=== PATIENT | female | born 1950 | race Caucasian/White ===

== ENCOUNTER → 2017-01-04 | Outpatient (CLI) | payer BC ==
[~2017-01-04] MED LIST: GLIP10TA23; HYDR50TA3; LEVO200T39; LISI10TA; METF-380; PGLT30T; SERT50TA; SIMV40TA2
--- NOTE | 2017-01-04 19:04 | Diagnostic Imaging Report ---
Bilateral screening mammogram The current study was also evaluated with a Computer Aided Detection (CAD) system. Indication: Screening. No current complaints stated on the questionnaire. COMPARISON: 10/12/15 FINDINGS: The breasts are composed of scattered fibroglandular densities. There are occasional benign-appearing calcifications. Allowing for technique and positional differences, no suspicious change is seen. IMPRESSION: No significant change. ACR BI-RADS Category 2: Benign findings. Result letter will be mailed to the patient. Note: At least 10% of breast cancer is not imaged by mammography. Dictated by: Dictated on workstation # [id number]
== END ==
LOC: RAD 10:55
PROVIDERS: ATTEND Obstetrics & Gynecology
DX: Z12.31 Encounter for screening mammogram for malignant neoplasm of breast (principal)
CPT/HCPCS: 77067

== ENCOUNTER → 2018-02-19 | Outpatient (CLI) | payer BC ==
--- NOTE | 2018-02-19 13:19 | Diagnostic Imaging Report ---
INDICATION: Routine screening. COMPARISON: 01/04/2017 and 10/12/2015. TECHNIQUE: Screening digital mammography was performed bilaterally with a Computer Aided Detection (CAD) system. FINDINGS: Both breasts are primarily involutional. Bilateral breast densities are stable. There are benign calcifications bilaterally. No new mass or malignant appearing microcalcifications are seen. The axillae are unremarkable. IMPRESSION: No mammographic features suspicious for malignancy are identified. ACR BI-RADS Category 2: Benign findings. Result letter will be mailed to the patient. Note: At least 10% of breast cancer is not imaged by mammography. Dictated by: Dictated on workstation # [id number]
== END ==
LOC: RAD 10:04
PROVIDERS: ATTEND Obstetrics & Gynecology
DX: Z12.31 Encounter for screening mammogram for malignant neoplasm of breast (principal)
CPT/HCPCS: 77067

== ENCOUNTER 2018-04-03 09:55 | Inpatient (IN) | payer BC, MEDICARE ==
[~2018-04-03] VITALS: Ht 152.4 cm; Wt 93.3 kg
[~2018-04-03 09:55] MED LIST changes: +ACET-2650 PO; +ASPI325T32 PO; +GLIM2TAB PO; +HYDR50TA3 PO; +INSU100I29 SC; +LEVO125T6 PO; +LISI10TA2 PO; +METF10002 PO; +PARO40TA3 PO; +SIMV40TA4 PO; +SITA100T12 PO
[2018-04-03 13:00] VITALS: BP 118/64
--- OUTSIDE RECORDS SUMMARY | 2018-04-03 14:00 | XMS REPORT | Continuity of Care Document ---
Author Author [employer] Organization [facility] Address Unknown Phone Unavailable Care Team Providers [facility] Business Manager Name Role Phone [employer] Unavailable Unavailable Problems Medications Allergies, Adverse Reactions, Alerts Immunizations Results Vital Signs Encounters Location Location Details Encounter Type Encounter Number Reason For Visit Attending Provider ADM Date DC Date Status Source INPATIENT [id number] ANURADHA CAM 03/18/20182017 Active [facility] O ANURADHA CAM 05/31/2018 Active [facility] Procedures Plan of Care Social History Assessment and Plan Family History Advance Directives Functional Status
--- OUTSIDE RECORDS SUMMARY | 2018-04-03 14:01 | XMS REPORT | Clinical Summary ---
Author Author [facility] Organization [facility] Address Unknown Phone Unavailable Care Team Providers Care Print Shop Stenographer Name Role Phone Brad Cummings MD PCP Source Comments Some departments are not documenting in the electronic medical record. If you do not see the information that you expected, contact Release of Information in the Health Information Management department at [phone] for further assistance in locating additional records.[facility] Allergies Active Allergy Reactions Severity Noted Date Comments Latex SEE COMMENTS Low 03/19/2018 skin irritation Penicillins SEE COMMENTS Low 03/19/2018 The patient said that when she was less than 12 years old, she was given a penicillin shot which caused her to be sleepy. She did not have difficulty breathing, swelling of the tongue or neck or rash. Her physician made a return house call. She does not remember if she received any treatment. She was not hospitalized for this. Entered by Rob GARRETT on 03/23/18 Current Medications Prescription Sig. Disp. Refills Start End Date Status Date acetaminophen SR(+) Take 650 mg by mouth Active (TYLENOL 8 HOUR) 650 mg every 6 hours as needed tablet for Pain. glimepiride (AMARYL) 2 mg Take 2 mg by mouth twice Active tablet daily. insulin detemir(+) Inject 16 Units under the Active (LEVEMIR) 100 unit/mL skin twice daily before soln meals. levothyroxine (SYNTHROID) Take 125 mcg by mouth Active 125 mcg tablet daily 30 minutes before breakfast. lisinopril (PRINIVIL; Take 10 mg by mouth Active ZESTRIL) 10 mg tablet daily. metFORMIN (GLUCOPHAGE) Take 1,000 mg by mouth Active 1,000 mg tablet twice daily with meals. PARoxetine (PAXIL) 40 mg Take 40 mg by mouth Active tablet daily. sitaGLIPtin (JANUVIA) 100 Take 100 mg by mouth Active mg tab tablet daily. digoxin 62.5 mcg tab Take 1 tablet by mouth 90 tablet 3 04/03/20 Active daily. 18 apixaban (ELIQUIS) 5 mg Take 1 tablet by mouth 60 tablet 2 04/03/20 Active tablet twice daily. 18 bumetanide (BUMEX) 2 mg Take 1 tablet by mouth 60 tablet 1 04/03/20 Active tablet daily. 18 aspirin 81 mg chewable Chew 1 tablet by mouth 90 tablet 3 04/03/20 Active tablet daily. Take with food. 18 spironolactone Take 1 tablet by mouth 90 tablet 3 04/03/20 Active (ALDACTONE) 25 mg tablet daily. Take with food. 18 amiodarone (CORDARONE) Take 1 tablet by mouth 90 tablet 3 04/03/20 Active 200 mg tablet daily. Take with food. 18 potassium chloride SR Take 1 tablet by mouth 90 tablet 3 04/03/20 Active (K-DUR) 20 mEq tablet daily. Take with a meal 18 and a full glass of water. simvastatin (ZOCOR) 20 mg Take 1 tablet by mouth at 90 tablet 3 Active tablet bedtime daily. 18 hydroCHLOROthiazide Take 50 mg by mouth every 04/03/20 Suspended (HYDRODIURIL) 50 mg morning. 18 tablet simvastatin (ZOCOR) 40 mg Take 40 mg by mouth at 04/03/20 Suspended tablet bedtime daily. 18 Active Problems Problem Noted Date HLD (hyperlipidemia) 03/19/2018 Type II diabetes mellitus (HCC) 03/19/2018 Essential hypertension 03/19/2018 Hypothyroidism 03/19/2018 Morbid obesity with BMI of 45.0-49.9, adult (FORMERLY [facility]) 03/19/2018 Nonischemic cardiomyopathy (FORMER[facility]) 03/19/2018 Overview: 03/18/18: Cath at [facility] [place] - normal coronaries Resolved Problems Problem Noted Date Resolved Date Cardiorenal syndrome 03/25/2018 04/03/2018 Infection due to parainfluenza virus 3 03/20/2018 04/03/2018 RYAN (acute kidney injury) (FORM[facility]) 03/19/2018 04/03/2018 PAF (paroxysmal atrial fibrillation) ([facility]) 03/19/2018 04/03/2018 Junctional bradycardia 03/19/2018 04/03/2018 Acute systolic heart failure (HCC) 03/19/2018 04/03/2018 Pulmonary edema 03/19/2018 04/03/2018 Acute respiratory failure with hypoxia (HCC) 03/19/2018 04/03/2018 Shock liver 03/19/2018 04/03/2018 Hyponatremia 03/19/2018 04/03/2018 Cardiogenic shock (HCC) 03/18/2018 04/03/2018 Encounters Date Type Specialty Care Team Description 03/27/2018 Procedure Pass Cardiology 03/27/2018 Surgery Cardiology Jovanny Fry MD INSERTION IMPLANTABLE DEFIBRILLATOR SYSTEM AND LEAD - DUAL 03/26/2018 Anesthesia Cardiology Zhao Ivory MD Event 03/26/2018 Anesthesia Cardiology Prateek Prakash CRNA Event 03/25/2018 Procedure Pass 03/25/2018 Procedure Pass 03/19/2018 Procedure Pass Cardiology 03/19/2018 Surgery Cardiology Ila Gray MD CATHETERIZATION RIGHT HEART 03/18/2018 [facility] Alem Tierney MD Cardiogenic shock (HCC) - Encounter Philippe Aguero MD 04/03/2018 Zafar Medina MD 03/18/2018 Hospital Radiology Encounter from Last 3 Months Social History Tobacco Use Types Packs/Day Years Used Date Former Smoker Cigarettes 1 40 Comments: Quit 8 years ago Alcohol Use Drinks/Week oz/Week Comments Yes Occassionally Sex Assigned at Date Recorded Not on file Last Filed Vital Signs Vital Sign Reading Time Taken Blood Pressure 146/64 04/03/2018 7:36 AM CDT Pulse 60 04/03/2018 7:36 AM CDT Temperature 36.7 C (98.1 F) 04/03/2018 7:36 AM CDT Respiratory Rate - - Oxygen Saturation 92% 04/03/2018 7:36 AM CDT Inhaled Oxygen - - Concentration Weight 93 kg (205 lb) 04/02/2018 12:59 PM CDT Height 167.6 cm (5' 6") 04/02/2018 12:59 PM CDT Body Mass Index 33.09 04/02/2018 12:59 PM CDT Plan of Treatment Health Maintenance Due Date Last Done Comments HEPATITIS C SCREENING 1952 PHYSICAL (COMPREHENSIVE) 02/11/1959 EXAM PERTUSSIS VACCINE 02/11/1963 TETANUS VACCINE 02/11/1969 DILATED EYE EXAM 02/11/1970 FOOT EXAM 02/11/1970 BREAST CANCER SCREENING 1992 COLORECTAL CANCER 02/11/2002 SCREENING SHINGLES VACCINE 2012 OSTEOPOROSIS SCREENING 02/11/2017 PREVNAR/PNEUMOVAX (#1) 02/11/2017 INFLUENZA VACCINE 08/26/2018 HBA1C 09/18/2018 03/19/2018 Procedures Procedure Name Priority Date/Time Associated Diagnosis Comments CONSULT IV THERAPY TEAM Routine 03/31/2018 9:09 AM CDT CONSULT IV THERAPY TEAM STAT 03/26/2018 11:11 AM CDT ECG-SCAN 03/24/2018 Results for this 4:40 PM CDT procedure are in the results section. ECG-SCAN 03/22/2018 Results for this 10:25 AM CDT procedure are in the results section. ECG-SCAN 03/22/2018 Results for this 10:25 AM CDT procedure are in the results section. CONSULT IV THERAPY TEAM Routine 03/19/2018 2:11 AM CDT from Last 3 Months Results * POC GLUCOSE (04/03/2018 7:34 AM) Only the most recent of 145 results within the time period is included. Component Value Ref Range Glucose, POC 129 (H) 70 - 100 MG/DL Specimen Performing Laboratory MA[facility] [address] [place] [address] * CBC (04/03/2018 4:05 AM) Only the most recent of 16 results within the time period is included. Component Value Ref Range White Blood Cells 4.8 4.5 - 11.0 K/UL RBC 3.98 (L) 4.0 - 5.0 M/UL Hemoglobin 11.0 (L) 12.0 - 15.0 GM/DL Hematocrit 33.8 (L) 36 - 45 % MCV 84.9 80 - 100 FL MCH 27.7 26 - 34 PG MCHC 32.6 32.0 - 36.0 G/DL RDW 16.5 (H) 11 - 15 % Platelet Count 130 (L) 150 - 400 K/UL MPV 8.8 7 - 11 FL Specimen Performing Laboratory Blood MAIN [facility] [address] [place] [address] * MAGNESIUM (04/03/2018 4:05 AM) Only the most recent of 33 results within the time period is included. Component Value Ref Range Magnesium 2.1 1.6 - 2.6 mg/dL Specimen Performing Laboratory Blood MAIN [facility] [address] [place] [address] * BASIC METABOLIC PANEL (04/03/2018 4:05 AM) Only the most recent of 14 results within the time period is included. Component Value Ref Range Sodium 136 (L) 137 - 147 MMOL/L Potassium 4.2 3.5 - 5.1 MMOL/L Chloride 102 98 - 110 MMOL/L CO2 28 21 - 30 MMOL/L Anion Gap 6 3 - 12 Glucose 88 70 - 100 MG/DL Blood Urea Nitrogen 34 (H) 7 - 25 MG/DL Creatinine 0.99 0.4 - 1.00 MG/DL Calcium 9.4 8.5 - 10.6 MG/DL eGFR Non 56 (L) >60 mL/min Comment: The eGFR is not validated for use in drug dosing adjustments.Continue to use estimated creatinine clearance per dosing reference text.Please contact the Clinical Pharmacist for questions. eGFR >60 >60 mL/min Comment: The eGFR is not validated for use in drug dosing adjustments.Continue to use estimated creatinine clearance per dosing reference text.Please contact the Clinical Pharmacist for questions. Specimen Performing Laboratory Blood MAIN [facility] [address] [place] [address] * 2-D + DOPPLER ECHOCARDIOGRAM (04/02/2018 12:58 PM) Only the most recent of 3 results within the time period is included. Component Value Ref Range IVS 0.78 0.6 - 0.9 cm LVIDD 5.72 3.8 - 5.2 cm LVIDS 5.15 2.2 - 3.5 cm PW 0.84 0.6 - 0.9 cm TDI e' 0.05 m/s LVOT peak william 0.85 m/s Right Ventricular Mid 3.01 1.9 - 3.5 cm Diameter LA size 3.99 2.7 - 3.8 cm LA volume 66.86 22 - 52 mL Right Atrial Area 17.51 <18 cm2 Right Atrial Major 5.93 2.2 - 2.8 cm Dimension and a peak gradient of 7.56 mmHg AV peak velocity 1.37 m/s MV Peak A William 0.35 m/s MV Peak E William PW 1.23 m/s Right Ventricular Basal 4.20 2.5 - 4.1 cm Diameter Right Heart Systolic 2.37 >1.7 cm Mmode TAPSE Sinus 2.97 2.7 - 3.3 cm BSA 2.08 m2 FS 9.97 28 - 44 % EF 16.95 % Left Atrium Index 32.14 16 - 34 AV index (kake) 0.62 E/A ratio 3.51 E/E' ratio 24.60 CV ECHO PV CHIEF DEPUTY [facility] mass 173.90 66 - 150 g RWT 0.29 <=0.42 TV rest pulmonary artery 42 mmHg pressure Right Heart Systolic TDI 0.140 m/s S' Cardiology Ultrasound Siemens [id number] Machine Left Ventricle Mass Index 83.61 44 - 88 g/m2 ECHO EF 25 % Specimen Performing Laboratory OTHER OUTSIDE LAB Narrative Severe, diffuse LV hypokinesis, EF 25% Mildly dilated, spherical LV Moderate LV diastolic dysfunction Mild left atrial enlargement Device leads in right-sided chambers Mild pulmonary hypertension Compared to 03/21/18 the appearance is similar * PV GROIN DUPLEX SCAN RT ONLY (04/01/2018 9:44 AM) Component Value Ref Range RIGHT RESIDENTIAL REMODELING SUBCONTRACTOR PROX SYS MAX 1.80 m/s RIGHT GROIN RESIDENTIAL REMODELING SUBCONTRACTOR SYS 1.80 m/s RIGHT GROIN SFA SYS 0.90 m/s RIGHT GROIN PFA SYS 0.55 m/s Cardiology Ultrasound [place] Epiq Machine Specimen Performing Laboratory OTHER OUTSIDE LAB Narrative No evidence of pseudoaneurysm, AV fistula, or hematoma is present in the right groin. * DIGOXIN LEVEL (04/01/2018 3:57 AM) Component Value Ref Range Digoxin 1.3 (H) 0.5 - 1.0 NG/ML Specimen Performing Laboratory Blood MAIN [facility] [address] [place] [address] * DEVICE EVALUATION - ICD (03/28/2018 4:10 PM) Component Value Ref Range Generator Graduate Nurse [facility] [facility] Device Type DDD-ICD Wireless Generator Yes Generator MRI Conditional Yes Atrial Lead Graduate Nurse [facility] [facility] Atrial Lead Model # TENDRIL MRI [id number] 52cm Atrial Lead Serial # [id number] Atrial Lead Implant Date 03/27/2018 Atrial Lead Fixation active fixation Atrial Lead Polarity Bipolar Atrial Lead Pin Connector IS1 Atrial Lead MRI Yes Conditional RV Lead Graduate Nurse [facility] [facility] RV Lead Model # OPTISURE [id number] RV Lead Serial # [id number] RV Lead Implant Date 03/27/2018 RV Lead Fixation active fixation RV Lead Coil Single RV Lead JESUSITA Conditional Yes Generator Model # NADINE GALLEGOS DR [id number] Generator Serial # [id number] Generator Implnat Date 03/27/2018 Remote Monitor Serial# [id number] Accssory Serial Number [id number] Device Smock Igor On Demand Transmitter Compatible Device Mode DDD Mode Switch Status On Lower Rate Limit 60 Mode Switch (bpm) 150 Upper Rate Limit 130 Pace AV Delay 200 Sense AV Delay 170 VT Monitor 171 High A Rate Detect 150 FVT Detect Rate Tx ATP/SHOCK VF Detect Rate Tx ATP/SHOCK VT Detect Rate (bpm) NA FVT Detect Rate (bpm) 190 VF Detect Rate (bpm) 250 High V Rate Detect 171 Atrial Lead Diaph. 10 Stimulation RV Lead Diaph. 10 Stimulation Device Function WNL Yes Device Reprogram No Next Programming Check 4-12weeks post implant Due Device Implanted By [facility] Pacemaker Dependant No Programming? Yes Date of Last Programming 03/28/18 Interrogation? Yes Date of Last 03/28/18 Interrogation Device Check by Rep Yes HF Patient Yes Remote Monitoring? Yes Date of Last Remote Check TBA Known Diagnosed AFib Yes Specimen Performing Laboratory OTHER OUTSIDE LAB Narrative In-patient "next-day" check (rep) [03/28/2018 4:12:27 PM - MICHELLE LAYNE] Device checked by Renae Correia [facility] Device rep: - pre-discharge check [place] remote inserviced. Please see attached HRM data sheet for > detail as needed.No changes made by rep. Routed to Dr Fry for co-sign. * CHEST 2 VIEWS (03/28/2018 5:29 AM) Specimen Performing Laboratory [facility] RESULTS Impressions Interval placement of dual-chamber pacemaker defibrillator with no evidence of postprocedural pneumothorax. Finalized by Javan Sue M.D. on 03/28/2018 8:55 AM. Dictated by Javan Sue M.D. on 03/28/2018 8:54 AM. Narrative CHEST 2 VIEWS History: Post device Implantation. Cardiac arrhythmia Technique: PA and lateral views of the chest were obtained. Comparison: Comparison is made to an examination of 03/15/2018. Findings: The heart size is now normal. There is no evidence of acute vascular congestion or pulmonary edema. There has been interval placement of a dual-chamber pacemaker defibrillator with its control unit in the left chest wall. Locations of the tips of the right atrial and right ventricular leads appear appropriate. No acute interstitial or alveolar opacities are. No masses are seen. There is no pleural fluid. No pneumothorax is identified. Note is again made of the left shoulder arthroplasty. Procedure Note Interface, Radiant Results - 03/28/2018 8:58 AM CDT CHEST 2 VIEWS History: Post device Implantation. Cardiac arrhythmia Technique: PA and lateral views of the chest were obtained. Comparison: Comparison is made to an examination of 03/15/2018. Findings: The heart size is now normal. There is no evidence of acute vascular congestion or pulmonary edema. There has been interval placement of a dual-chamber pacemaker defibrillator with its control unit in the left chest wall. Locations of the tips of the right atrial and right ventricular leads appear appropriate. No acute interstitial or alveolar opacities are. No masses are seen. There is no pleural fluid. No pneumothorax is identified. Note is again made of the left shoulder arthroplasty. IMPRESSION Interval placement of dual-chamber pacemaker defibrillator with no evidence of postprocedural pneumothorax. Finalized by Javan Sue M.D. on 03/28/2018 8:55 AM. Dictated by Javan Sue M.D. on 03/28/2018 8:54 AM. * EP DEVICE (03/27/2018 1:15 PM) Component Value Ref Range Generator Graduate Nurse [facility] [facility] Device Type DDD-ICD Wireless Generator Yes Generator Location Left Generator MRI Conditional Yes Atrial Lead Graduate Nurse [facility] [facility] Atrial Lead Model # TENDRIL MRI [id number] 52cm Atrial Lead Serial # [id number] Atrial Lead Implant Date 03/27/2018 Atrial Lead Fixation active fixation Atrial Lead Polarity Bipolar Atrial Lead Pin Connector IS1 Atrial Lead MRI Yes Conditional RV Lead Graduate Nurse [facility] RV Lead Model # OPTISURE [id number] RV Lead Serial # [id number] RV Lead Implant Date 03/27/2018 RV Lead Fixation active fixation RV Lead Pin Connector PPM DF4 RV Lead Coil Single RV Lead JESUSITA Conditional Yes Generator Model # NADINE GALLEGOS DR [id number] Generator Serial # [id number] Generator Implnat Date 03/27/2018 Remote Monitor Serial# [id number] Accssory Serial Number [id number] Device Smock [place] On Demand Transmitter Compatible Device Mode DDD Mode Switch Status On Lower Rate Limit 60 Mode Switch (bpm) 150 Upper Rate Limit 130 Pace AV Delay 200 Sense AV Delay 170 VT Monitor 171 High A Rate Detect 150 FVT Detect Rate Tx ATP/SHOCK VF Detect Rate Tx ATP/SHOCK A Sense mv 2.5 A Capture V 1.0 A Capture ms 0.8 A Lead ohms 440 RV Sense mv 9.8 RV Capture V 0.5 RV Capture ms 0.5 RV Lead ohms 550 VT Detect Rate (bpm) NA FVT Detect Rate (bpm) 190 VF Detect Rate (bpm) 250 Ao Voltage 2.5 AO Pulse Width 0.8 RV Voltage 2.5 RV Pulse Width 0.5 High V Rate Detect 171 Atrial Lead Diaph. 10 Stimulation RV Lead Diaph. 10 Stimulation Atrial Lead Current 2.2 mA RV Lead Current 1.0 mA Rate Response Off Specimen Performing Laboratory OTHER OUTSIDE LAB Narrative ELECTROPHYSIOLOGY PROCEDURE PROCEDURE: Dual-chamber Defibrillator Implantation OPERATION PERFORMED: -Left Axillary venous access (ultrasound-guided) -Dual-chamber Defibrillator Implantation -Defibrillation Threshold Testing not performed ATTENDING SURGEON: Jovanny Fry MD COMPLICATIONS: None. TIME OUT: Time out was completed with verification of the correct patient identity, procedure to be performed, procedure site and implanted equipment. INDICATION: Atrial fibrillation and sinus node dysfunction. She needed a pacemaker at this time and was unable to wait for 3 months of guide-line directed, optimal medical therapy. She was offered a primary prevention ICD as well for her non-ischemic cardiomyopathy and elected to proceed. PROCEDURE AND FINDINGS:Informed consent was given prior to the procedure and confirmed.Intravenous prophylactic antibiotics were administered prior to the procedure. After the site of implantation was prepped and drapped in the usual sterile fashion and after adequate anesthesia was given, the skin was infiltrated with local anesthetic. [id number] ACCESS Ultrasound was utilized to confirm axillary venous patency. Needle access was obtained under ultrasound guidance and a permanent recording obtained. The axillary vein was accessed via modified Seldinger technique under ultrasound guidance with a micropuncture needle. Two separate accesses were obtained with this technique.J tip 0.035 inch guide wire/wires were introduced and their course throught the venous system was confirmed by their presence under fluoroscopy in the inferior vena cava. POCKET FORMATION A micropuncture sheath was placed over the wire to protect the wire during electrocautery.The skin was incised on the left chest with a #10 scalpel incorporating a wire/wires. Blunt and electrosurgical dissection was carried out to the level of the prepectoral fascia with careful attention paid to hemostasis.A pocket to house the pulse generator was formed between the prepectoral fascia and subcutaneous fat with blunt and electrosurgical dissection. The remaining wire/wires were pulled into the pocket so they were through the incision. RIGHT VENTRICULAR LEAD A peel away sheath was brought to the field and placed into the venous system via over the wire technique.The right ventricular lead was placed via this sheath into the right ventricular low septal location.The lead had to be repositioned 2 times due to suboptimal sensing at the apical septum and instability at the 2nd position. Adequate sensing and threshold parameters were obtained at the final location.The lead was attached via active fixation.There was no evidence of diaphragmatic stimulation at 10 V output.The peel away sheath was removed and the lead collar was advanced to the pectoral muscle and sutured with 2-0 Ethibond suture.Tug testing of this lead confirmed stability of the lead and the length of the lead's slack was assesed as optimal with fluoroscopy. ATRIAL LEAD A peel away sheath was brought to the field and placed into the venous system via over the wire technique.The right atrial lead was placed via this sheath into the right atrial appendage location. The lead had to be repositioned 4 times due to dislodgement (a slightly more lateral position was obtained and kept at the end). Multiple attempts were made in the RAA. Adequate sensing and threshold parameters were obtained at the final location. The lead was attached via active fixation.There was no evidence of diaphragmatic stimulation at 10 V output.The peel away sheath was removed and the lead collar was advanced to the pectoral muscle and sutured with 2-0 Ethibondsuture.Tug testing of this lead confirmed stability of the lead and the length of the lead's slack was assesed as optimal with fluoroscopy. The lead/leads was/were cleaned and dried thoroughly then attached to the appropriate ports on the pulse generator.Tug testing was perfomed on all connections.The pocket was copiously irrigated with normal saline containing antibiotics and subsequently observed.Once adequate hemostasis was confirmed within the pocket, the device and leads were placed withinthe pocket such that the coiled redundant leads were posterior to the pulse generator.Once again, the device was tested for adequate sensing, impedances and pacing thresholds.The generator was secured to the pectoralis minor muscle with 2-0 Ethibond. The pocket was closed with interrupted 2-0 Vicryl and continuous 3-0 Vicryl. Dermabond glue was then applied over the incision followed by a sterile dressing. she tolerated the procedure well. This was a particularly challenging procedure due to the added complexity of multiple RA and RV lead dislodgements. This added approximately 30 minutes to the procedure. SEDATION: After providing fentanyl and midazolam, we achieved moderate conscious sedation, which was maintained throughout the procedure. The hemodynamic parameters, respiratory parameters, as well as neurological status was monitored throughout the procedure by the lab manager staff and myself. The sedation duration was 1 hour and 15 minutes. CONTRAST: 0 mL FLUOROSCOPY TIME: 2.5 minutes CONCLUSION: Successful Dual-chamber Defibrillator Implantation RECOMMENDATIONS: - Pain control as needed - Device interrogation, ECG, and Chest X-Ray in the morning - No post-procedure antibiotics - No heparin or LMWH products for 72 hours post-procedure - Continue oral anticoagulation given recent cardioversion - Incision Check in one week * PROTIME INR (PT) (03/27/2018 5:15 AM) Only the most recent of 2 results within the time period is included. Component Value Ref Range INR 1.3 (H) 0.8 - 1.2 Specimen Performing Laboratory Blood [facility] [address] [place] [address] * COMPREHENSIVE METABOLIC PANEL (03/27/2018 5:15 AM) Only the most recent of 21 results within the time period is included. Component Value Ref Range Sodium 137 137 - 147 MMOL/L Potassium 3.7 3.5 - 5.1 MMOL/L Chloride 91 (L) 98 - 110 MMOL/L Glucose 120 (H) 70 - 100 MG/DL Blood Urea Nitrogen 45 (H) 7 - 25 MG/DL Creatinine 1.11 (H) 0.4 - 1.00 MG/DL Calcium 10.0 8.5 - 10.6 MG/DL Total Protein 6.4 6.0 - 8.0 G/DL Total Bilirubin 0.8 0.3 - 1.2 MG/DL Albumin 3.6 3.5 - 5.0 G/DL Alk Phosphatase 55 25 - 110 U/L AST (SGOT) 24 7 - 40 U/L CO2 37 (H) 21 - 30 MMOL/L ALT (SGPT) 41 7 - 56 U/L Anion Gap 9 3 - 12 eGFR Non 49 (L) >60 mL/min Comment: The eGFR is not validated for use in drug dosing adjustments.Continue to use estimated creatinine clearance per dosing reference text.Please contact the Clinical Pharmacist for questions. eGFR 60 (L) >60 mL/min Comment: The eGFR is not validated for use in drug dosing adjustments.Continue to use estimated creatinine clearance per dosing reference text.Please contact the Clinical Pharmacist for questions. Specimen Performing Laboratory Blood [facility] [address] [place] [address] * TRANSESOPHAGEAL ECHOCARDIOGRAM (03/26/2018 2:58 PM) Component Value Ref Range BSA 2.14 m2 CV ECHO PV CHIEF DEPUTY TREVOR [employer] Ultrasound Siemens [id number] Machine ECHO EF 10 % Specimen Performing Laboratory OTHER OUTSIDE LAB Narrative No left atrial appendage thrombus Mildly dilated LV Severe LV systolic dysfunction, EF 10% Mildly dilated RV, moderate systolic dysfunction Severely enlarged left atrium Moderate dilated right atrium * CARDIOVERSION, EXTERNAL (03/26/2018 2:55 PM) Specimen Performing Laboratory OTHER OUTSIDE LAB Narrative The patient was converted from atrial fibrillation to sinus rhythm using 200 joules synchronized, biphasic energy.The initial rhythm post-shock was a junctional rhythm, rate 40's, for about 30 seconds, then sinus beats and frequent PVC's, then sustained sinus rhythm.The patient tolerated the procedure and there were no apparent complications. * NM PET HEART METABOLISM SARCOID (03/26/2018 8:39 AM) Specimen Performing Laboratory [facility] RAD RESULTS Impressions 1.Mild homogeneous increased FDG uptake within the left ventricular myocardium, greatest at the inferior wall. Findings are compatible with acute mild myocarditis. 2.Mild cardiomegaly. Approved by Zach Vanessa D.O. on 03/26/2018 11:29 AM By my electronic signature, I attest that I have personally reviewed the images for this examination and formulated the interpretations and opinions expressed in this report Finalized by Dell Foote M.D. on 03/26/2018 12:15 PM. Dictated by Zach Vanessa D.O. on 03/26/2018 10:00 AM. Narrative PET HEART METABOLISM WITH FDG CLINICAL HISTORY: 68 rolled female. Myocarditis. Congestive heart failure with new onset nonischemic cardiomyopathy. New-onset atrial fibrillation. Severe symptomatic bradycardia. RADIOPHARMACEUTICAL: 13.7 mCi IV Fluorine-18 fluorodeoxyglucose (FDG) TECHNIQUE: Following a high-carbohydrate meal, F-18 FDG was administered to the patient. Tomographic imaging of the heart was then obtained via attenuation correction PET scanning, and reviewed as tomographic images and polar maps. Comparison was made with perfusion imaging. COMPARISON: CT 03/25/2018 FINDINGS: Current blood pool mean SUV 3.7, maximum 4.23. CTAC images: Redemonstration of patchy consolidation in the dependent lower lungs, left greater than right, likely atelectasis. Redemonstration of small left and trace right pleural effusions. Scattered areas of scarring again noted. Mild cardiomegaly. There is mild homogeneous increased FDG uptake within the left ventricular myocardium, greatest at the inferior wall, which demonstrates a maximum SUV of 5.23. The apical anterior wall demonstrates maximum SUV of 4.75. No hypermetabolic lymphadenopathy demonstrated. Procedure Note Interface, Radiant Results - 03/26/2018 12:18 PM CDT PET HEART METABOLISM WITH FDG CLINICAL HISTORY: 68 rolled female. Myocarditis. Congestive heart failure with new onset nonischemic cardiomyopathy. New-onset atrial fibrillation. Severe symptomatic bradycardia. RADIOPHARMACEUTICAL: 13.7 mCi IV Fluorine-18 fluorodeoxyglucose (FDG) TECHNIQUE: Following a high-carbohydrate meal, F-18 FDG was administered to the patient. Tomographic imaging of the heart was then obtained via attenuation correction PET scanning, and reviewed as tomographic images and polar maps. Comparison was made with perfusion imaging. COMPARISON: CT 03/25/2018 FINDINGS: Current blood pool mean SUV 3.7, maximum 4.23. CTAC images: Redemonstration of patchy consolidation in the dependent lower lungs, left greater than right, likely atelectasis. Redemonstration of small left and trace right pleural effusions. Scattered areas of scarring again noted. Mild cardiomegaly. There is mild homogeneous increased FDG uptake within the left ventricular myocardium, greatest at the inferior wall, which demonstrates a maximum SUV of 5.23. The apical anterior wall demonstrates maximum SUV of 4.75. No hypermetabolic lymphadenopathy demonstrated. IMPRESSION 1. Mild homogeneous increased FDG uptake within the left ventricular myocardium, greatest at the inferior wall. Findings are compatible with acute mild myocarditis. 2. Mild cardiomegaly. Approved by Zach Vanessa D.O. on 03/26/2018 11:29 AM By my electronic signature, I attest that I have personally reviewed the images for this examination and formulated the interpretations and opinions expressed in this report Finalized by Dell Foote M.D. on 03/26/2018 12:15 PM. Dictated by Zach Vanessa D.O. on 03/26/2018 10:00 AM. * CT CHEST WO CONTRAST (03/25/2018 3:46 PM) Specimen Performing Laboratory [facility] RESULTS Impressions 1. Left IJ line malpositioning as described. Repositioning is suggested. This was discussed with the charge nurse on the patient's floor Mable by telephone at 4:11 PM on 03/25/2018. 2. No evidence of significant pericardial effusion, pericardial thickening, or mass effect on the right heart chambers to suggest constrictive pericarditis. 3. Upper limits of normal size heart with findings of mild CHF. 4. Patchy lower lung consolidation, left greater than right, likely representing atelectasis. 5. Small left and trace right pleural effusion. 6. Trace ascites. 7. At least moderate coronary artery and aortic valve calcification. Finalized by Yoshi Villeda M.D. on 03/25/2018 4:11 PM. Dictated by Yoshi Villeda M.D. on 03/25/2018 4:[address] Chest Clinical Indication: Constrictive pericarditis Technique: Multiple contiguous axial CT images were obtained through the chest without IV contrast.Post processing coronal and sagittal reconstruction images were made from the axial images. Comparison: None Findings: Axilla, Mediastinum and Judith: There is no axillary lymphadenopathy. There are a few mildly prominent mediastinal and hilar lymph nodes which are likely reactive. In comparison to chest x-ray of 2 days prior, the left IJ line has repositioned with the tip now terminating within a small branch vein just the left of the thoracic aorta. Heart and Great Vessels: The heart size is upper limits of normal. The right heart chambers are normal in contour without evidence of constriction. There is no pericardial effusion or pericardial thickening. There is at least moderate coronary artery and aortic valve calcification. Lungs and Pleura: Patchy consolidation is seen in the dependent lower lungs, left greater than right, likely representing atelectasis. There is a trace right and small left pleural effusion. There is mild pulmonary venous congestion and interstitial edema in both lungs. Scattered areas of scarring are noted bilaterally. Chest Wall and Osseous Structures: Left shoulder arthroplasty changes are partially visualized. No destructive osseous lesions are identified. Visualized Upper Abdomen: Trace ascites is noted. Clips are seen in the gallbladder fossa. Procedure Note Interface, Radiant Results - 03/25/2018 4:[address] Chest Clinical Indication: Constrictive pericarditis Technique: Multiple contiguous axial CT images were obtained through the chest without IV contrast. Post processing coronal and sagittal reconstruction images were made from the axial images. Comparison: None Findings: Axilla, Mediastinum and Judith: There is no axillary lymphadenopathy. There are a few mildly prominent mediastinal and hilar lymph nodes which are likely reactive. In comparison to chest x-ray of 2 days prior, the left IJ line has repositioned with the tip now terminating within a small branch vein just the left of the thoracic aorta. Heart and Great Vessels: The heart size is upper limits of normal. The right heart chambers are normal in contour without evidence of constriction. There is no pericardial effusion or pericardial thickening. There is at least moderate coronary artery and aortic valve calcification. Lungs and Pleura: Patchy consolidation is seen in the dependent lower lungs, left greater than right, likely representing atelectasis. There is a trace right and small left pleural effusion. There is mild pulmonary venous congestion and interstitial edema in both lungs. Scattered areas of scarring are noted bilaterally. Chest Wall and Osseous Structures: Left shoulder arthroplasty changes are partially visualized. No destructive osseous lesions are identified. Visualized Upper Abdomen: Trace ascites is noted. Clips are seen in the gallbladder fossa. IMPRESSION 1. Left IJ line malpositioning as described. Repositioning is suggested. This was discussed with the charge nurse on the patient's floorMable by telephone at 4:11 PM on 03/25/2018. 2. No evidence of significant pericardial effusion, pericardial thickening, or mass effect on the right heart chambers to suggest constrictive pericarditis. 3. Upper limits of normal size heart with findings of mild CHF. 4. Patchy lower lung consolidation, left greater than right, likely representing atelectasis. 5. Small left and trace right pleural effusion. 6. Trace ascites. 7. At least moderate coronary artery and aortic valve calcification. Finalized by Yoshi Villeda M.D. on 03/25/2018 4:11 PM. Dictated by Yoshi Villeda M.D. on 03/25/2018 4:01 PM. * ECG-SCAN (03/24/2018 4:40 PM) Narrative Ordered by an unspecified provider. * HEPARIN INDUCED PLT AB (HIT) (03/23/2018 11:20 AM) Component Value Ref Range Heparin Induced Plt AB NEGATIVEComment: TEST PERFORMED BY [facility]- NEGATIVE [facility] Heparin AB OD 0.030 0.000 - 0.499 Specimen Performing Laboratory [facility] [address] [place] [address] * PTT (APTT) (03/23/2018 5:05 AM) Only the most recent of 11 results within the time period is included. Component Value Ref Range APTT 101.5 (H) 21.0 - 39.0 SEC Specimen Performing Laboratory [facility] [address] [place] [address] * CHEST SINGLE VIEW (03/23/2018 4:57 AM) Only the most recent of 6 results within the time period is included. Specimen Performing Laboratory [facility] RESULTS Impressions 1.Since prior the right IJ SGC and ET tube have been removed. 2.Improved inspiration, improved bibasilar atelectasis and pulmonary venous congestion, with persistent mild cardiomegaly. No focal consolidation. Improvement trace left pleural effusion. 3.Otherwise no change. Left IJ CVC tip projects over the the innominate/ brachiocephalic vein confluence. Marked arthrosis of the right shoulder with likely rotator cuff tear. Left shoulder arthroplasty. Finalized by Mac Tolentino M.D. on 03/23/2018 7:59 AM. Dictated by Mac Tolentino M.D. on 03/23/2018 7:56 AM. Narrative Exam: CHEST SINGLE VIEW CLINICAL INDICATION: 68 years Female; Cough. COMPARISON: Portable chest 03/22/2018. Procedure Note Interface, Radiant Results - 03/23/2018 8:02 AM CDT Exam: CHEST SINGLE VIEW CLINICAL INDICATION: 68 years Female; Cough. COMPARISON: Portable chest 03/22/2018. IMPRESSION 1. Since prior the right IJ SGC and ET tube have been removed. 2. Improved inspiration, improved bibasilar atelectasis and pulmonary venous congestion, with persistent mild cardiomegaly. No focal consolidation. Improvement trace left pleural effusion. 3. Otherwise no change. Left IJ CVC tip projects over the the innominate/ brachiocephalic vein confluence. Marked arthrosis of the right shoulder with likely rotator cuff tear. Left shoulder arthroplasty. Finalized by Mac Tolentino M.D. on 03/23/2018 7:59 AM. Dictated by Mac Tolentino M.D. on 03/23/2018 7:56 AM. * VANCOMYCIN TROUGH (03/22/2018 9:20 PM) Component Value Ref Range Vancomycin Trough 20.1 (H) 10.0 - 20.0 MCG/ML Specimen Performing Laboratory Blood, venous - [facility] [address] [place] [address] * POC ACTIVATED CLOTTING TIME (03/22/2018 1:59 PM) Only the most recent of 2 results within the time period is included. Component Value Ref Range Activated Clotting Time 213 s Specimen Performing Laboratory [facility] [address] [place] [address] * ECG-SCAN (03/22/2018 10:25 AM) Narrative Ordered by an unspecified provider. * ECG-SCAN (03/22/2018 10:25 AM) Narrative Ordered by an unspecified provider. * BLOOD GASES, ARTERIAL (03/22/2018 9:40 AM) Only the most recent of 11 results within the time period is included. Component Value Ref Range pH-Arterial 7.34 (L) 7.35 - 7.45 pCO2-Arterial 53 (H) 35 - 45 MMHG pO2-Arterial 104 (H) 80 - 100 MMHG Base Excess-Arterial 1.8 MMOL/L O2 Sat-Arterial 97.5 95 - 99 % Xhjyiduuhgy-CAI-Nnz 26.0 21 - 28 MMOL/L Specimen Performing Laboratory Blood, arterial - [facility] [address] [place] [address] * O2 SATURATION, MIXED VENOUS (03/22/2018 5:00 AM) Only the most recent of 8 results within the time period is included. Component Value Ref Range S1Pby-Ipznq Venous 79.2 % Specimen Performing Laboratory [facility] [address] [place] [address] * US ABDOMEN COMPLETE (03/21/2018 7:00 PM) Specimen Performing Laboratory [facility] RESULTS Impressions 1.Mild hepatomegaly. There are no usman morphologic features of cirrhosis. 2.Mild abdominal ascites. 3.Small bilateral pleural effusions. 4.The left kidney was not visualized on this exam, which may be due to technical limitations, surgical absence, or congenital anomaly. The right kidney is normal in size without hydronephrosis. By my electronic signature, I attest that I have personally reviewed the images for this examination and formulated the interpretations and opinions expressed in this report Finalized by Caren Tracey M.D. on 03/22/2018 8:54 AM. Dictated by Rachael Polk D.O. on 03/22/2018 8:14 AM. Narrative Complete abdominal ultrasound Clinical Indication: 68-year-old female. Cardiogenic shock. Acute decompensated heart failure. Concern for STEEN/cirrhosis.Please also evaluate for potential urinary tract obstruction, urolithiasis, or hydronephrosis. Technique: Multiple real-time grayscale sonographic images were obtained of the abdomen. Additional color Doppler images were obtained. Comparison: None Findings: The study is significantly compromised by body habitus and bowel gas, particularly with regard to the left abdomen. Small bilateral pleural effusions are noted. The visualized pancreas, upper IVC and abdominal aorta are unremarkable. The liver demonstrates a homogenous echotexture and is mildly enlarged measuring 20.3 cm. No discrete hepatic lesion is identified. There is no obvious contour nodularity. The gallbladder is surgically absent. The extra hepatic bile duct is within normal limits in diameter measuring 0.6 cm near the jocelynn hepatis. No intrahepatic bile duct dilatation. A normal sized splenic candidate measures approximately 11.2 cm in length. The left kidney is not identified at its expected location in the left flank. An ectopic left kidney was not visualized in the left lower quadrant. The right kidney measures 13.7 x 4.6 cm. No hydronephrosis or discrete nephrolithiasis. The urinary bladder is decompressed and not discretely visualized. Mild abdominopelvic ascites. Procedure Note Interface, Radiant Results - 03/22/2018 8:57 AM CDT Complete abdominal ultrasound Clinical Indication: 68-year-old female. Cardiogenic shock. Acute decompensated heart failure. Concern for STEEN/cirrhosis. Please also evaluate for potential urinary tract obstruction, urolithiasis, or hydronephrosis. Technique: Multiple real-time grayscale sonographic images were obtained of the abdomen. Additional color Doppler images were obtained. Comparison: None Findings: The study is significantly compromised by body habitus and bowel gas, particularly with regard to the left abdomen. Small bilateral pleural effusions are noted. The visualized pancreas, upper IVC and abdominal aorta are unremarkable. The liver demonstrates a homogenous echotexture and is mildly enlarged measuring 20.3 cm. No discrete hepatic lesion is identified. There is no obvious contour nodularity. The gallbladder is surgically absent. The extra hepatic bile duct is within normal limits in diameter measuring 0.6 cm near the jocelynn hepatis. No intrahepatic bile duct dilatation. A normal sized splenic candidate measures approximately 11.2 cm in length. The left kidney is not identified at its expected location in the left flank. An ectopic left kidney was not visualized in the left lower quadrant. The right kidney measures 13.7 x 4.6 cm. No hydronephrosis or discrete nephrolithiasis. The urinary bladder is decompressed and not discretely visualized. Mild abdominopelvic ascites. IMPRESSION 1. Mild hepatomegaly. There are no usman morphologic features of cirrhosis. 2. Mild abdominal ascites. 3. Small bilateral pleural effusions. 4. The left kidney was not visualized on this exam, which may be due to technical limitations, surgical absence, or congenital anomaly. The right kidney is normal in size without hydronephrosis. By my electronic signature, I attest that I have personally reviewed the images for this examination and formulated the interpretations and opinions expressed in this report Finalized by Caren Tracey M.D. on 03/22/2018 8:54 AM. Dictated by Rachael Polk D.O. on 03/22/2018 8:14 AM. * ABDOMEN AP ONLY (03/20/2018 1:55 PM) Only the most recent of 5 results within the time period is included. Specimen Performing Laboratory [facility] RESULTS Impressions Enteric tube with tip coiled over region of distal antrum. Finalized by Violette Moura M.D. on 03/20/2018 2:52 PM. Dictated by Violette Moura M.D. on 03/20/2018 2:51 PM. Narrative ABDOMEN AP ONLY Indication: feeding tube placement. Comparison: Study done earlier the same day. Findings: The gastric tube remains with the tip overlying the antrum of the stomach. The enteric tube is seen with the tip coiled over the region of the distal antrum. Surgical clips are seen in the right upper quadrant. Scattered gas is noted in the large and small bowel in the upper abdomen. Procedure Note Interface, Radiant Results - 03/20/2018 2:55 PM CDT ABDOMEN AP ONLY Indication: feeding tube placement. Comparison: Study done earlier the same day. Findings: The gastric tube remains with the tip overlying the antrum of the stomach. The enteric tube is seen with the tip coiled over the region of the distal antrum. Surgical clips are seen in the right upper quadrant. Scattered gas is noted in the large and small bowel in the upper abdomen. IMPRESSION Enteric tube with tip coiled over region of distal antrum. Finalized by Violette Moura M.D. on 03/20/2018 2:52 PM. Dictated by Violette Moura M.D. on 03/20/2018 2:51 PM. * LACTIC ACID(LACTATE) (03/20/2018 4:00 AM) Only the most recent of 2 results within the time period is included. Component Value Ref Range Lactic Acid 1.1 0.5 - 2.0 MMOL/L Specimen Performing Laboratory [facility] [address] [place] [address] * CULTURE-BLOOD W/SENSITIVITY (03/19/2018 11:34 PM) Only the most recent of 3 results within the time period is included. Component Value Ref Range Battery Name BLOOD CULTURE Specimen Description BLOOD RIGHT WRIST Special Requests NONE Culture NO GROWTH 5 DAYS Report Status FINAL 03/26/2018 Specimen Performing Laboratory [facility] [address] [place] [address] * POC BLOOD GAS ARTERIAL (03/19/2018 10:30 PM) Component Value Ref Range PH-ART-POC 7.41 7.35 - 7.45 LVL9-PUM-EIE 31 (L) 35 - 45 MMHG PO2-ART-POC 81 80 - 100 MMHG Base Def-ART-POC 5.0 MMOL/L O2 Sat-ART-POC 96.0 95 - 99 % Cuziuikihcj-VCR-IDD 19.6 (L) 21 - 28 MMOL/L Specimen Performing Laboratory [facility] [address] [place] [address] * CARDIAC CATH REPORT (03/19/2018 5:02 PM) Specimen Performing Laboratory OTHER OUTSIDE LAB Procedure Note Ila Gray MD - 03/19/2018 5:02 PM CDT [facility] CARDIAC CATHETERIZATION REPORT Page 2 ELSA BHAVIK Stovall : 1950 #: [id number] MR #/Billing ID #: [id number] / [id number] DATE: 03/19/2018 MICRO COMPUTER DATA PROCESSOR: Ila Gray MD DICTATING PROVIDER: Kristian Caputo MD REFERRING PHYSICIAN: [employer] EMPLOYEE: Kristian Caputo MD PROCEDURES PERFORMED: 1. Left IJ ultrasound-guided venous access. 2. Left IJ central line placement. 3. Right IJ 8-[place] Fast-Cath venous access. 4. Right heart catheterization. 5. Endomyocardial biopsy. INDICATION FOR PROCEDURE: Elsa Gutierres is a 68-year-old woman who presents from an outside hospital with acute onset heart failure with an ejection fraction of 10%. There is suspicion that she might have underlying myocarditis as the cause of the worsening heart failure. Hence, she is here for endomyocardial biopsy and right heart catheterization to assess her filling pressures. She is in a severely decompensated state, intubated, and deeply sedated, along with 4 different vasoactive agents to maintain her blood pressure , vasopressin, epinephrine, norepinephrine, and dopamine, to maintain her cardiac output. We would like to perform an invasive evaluation of her filling pressures in this regard. CONSENT: Risks, benefits, and alternatives of the procedure were explained to the patient's family by Dr. Gray. Risks of access site complications, bleeding , damage to the carotid artery, pneumothorax, pericardial effusion, and perforation were explained to the patient's family, who verbalized understanding of these conditions and consented to the procedure. Written informed consent has been placed in the chart. DETAILS OF PROCEDURE: The patient was brought into the lab manager intubated and deeply sedated. We then noticed that the patient was having a right IJ central venous catheter placed, along with no other venous access. Hence, we switched out the venous access to the left IJ. We initially visualized the left IJ using an ultrasound machine and verified patency using compression testing, following which we instilled a total of 20 mL of 1% lidocaine for good local anesthesia. We gained access into the left IJ, using a micropuncture needle and modified Seldinger technique to insert the triple-lumen central venous catheter. Following this, we switched all the vasoactive agents to the left IJ. Under sterile precautions with double gloves and double-drape technique, we switched out the right IJ central venous catheter for an 8-[place] Fast-Cath. Following this, we introduced a 7.5-[place]-Mikel catheter which was serially advanced into the right atrium, right ventricle, pulmonary artery, and subsequently into the wedge position for assessment of saturations, measurement of pressures, and calculation of cardiac outputs and indices by thermodilution and Kassidy methods respectively. DETAILS OF RIGHT HEART CATHETERIZATION: 1. Blood pressure 152/64/mean 93 mmHg. 2. Heart rate 64 beats per minute. 3. Body surface area 2.22 sq m. 4. Hemoglobin percentage 13.4 g/dL. 5. Saturations: a. Aorta saturation 98%. b. RA saturation 64%. c. PA saturation 65%. 6. Pressures: a. Right atrial pressure 25 mmHg, with a steep Y descent suggestive of RV dysfunction. b. Right ventricular pressure 50/13/EDP 18 mmHg. c. PA pressure 50/28/mean 35 mmHg. d. Pulmonary capillary wedge pressure 25 mmHg. e. Transpulmonic gradient 10 mmHg. f. Diastolic pulmonic gradient 3 mmHg. 7. Cardiac output by Kassidy method was 4.5 L/minute, with an index of 2 L/minute per sq m. 8. Systemic vascular resistance was 1208 DSC -5 (15 Wood units). 9. Pulmonary vascular resistance 177 DSC -5 (2 Wood units). CONTRAST: None was used for the procedure. TOTAL AIR KERMA: 203 mGy. DETAILS OF THE ENDOMYOCARDIAL BIOPSY: We then introduced a 7-[place] bioptome through the 8-[place] venous sheath under fluoroscopic guidance in the AP and JAIMEE projections. We obtained a total of 3 different samples from the RV septal region. Hemodynamics remained intact, except for a brief period of relative hypotension compared to the baseline, where her systolic blood pressure was 160 mmHg. She dropped down to 120 mmHg. We initially recognized this and brought a stat echocardiogram, which demonstrated no evidence of pericardial effusion post biopsy. As a result, we decided to leave the drips in place and subsequently transferred her out of the lab manager. Dr. Gray was scrubbed and performed fall portions of the procedure, and supervised the rest of it as well. The [place] was left at 54 cm at the level of the hub. She will be transported to the ICU for further inotropic and diuretic management. FINAL IMPRESSION: 1. Severely reduced cardiac index with very high filling pressures. 2. Moderate pulmonary hypertension, as outlined above. 3. Continued inotropic and diuretic support per the Heart Failure Team in the ICU. MD TORITO Wallace/Estuardo /[id number] cc: * O2HGB SAT-VENOUS POC (03/19/2018 4:39 PM) Only the most recent of 3 results within the time period is included. Component Value Ref Range O2HGB SAT-Venous POC 66.0 55 - 71 % Specimen Performing Laboratory [facility] [address] [place] [address] * SURGICAL PATHOLOGY (03/19/2018 4:36 PM) Component Value Ref Range PATHOLOGY REPORT [facility] [email or web address] Department of Pathology and Laboratory Medicine [address] [place] [address] Surgical Pathology Office:[phone]:[phone] SURGICAL PATHOLOGY REPORT NAME: ELSA GUTIERRES SURG PATH #: [id number] MR #: [id number] SPECIMEN CLASS: SR BILLING #: [id number] ALT ID #:LOCATION: [facility] DATE OF PROCEDURE: 03/19/2018 AGE:68 SEX: F DATE RECEIVED: 03/19/2018 : 1950TIME RECEIVED:16:36 PHYSICIAN: ALEM TIERNEY DATE OF REPORT: 03/20/2018 COPY TO:DATE OF PRINTIN03/20/2018 ################################################## ###################### Final Diagnosis: A. Right ventricle (kake endomyocardial biopsy): Myocardium with moderate fibrosis. See comment and description. Comment: Only a few scattered T cells and macrophages are present, which are insufficient to warrant a diagnosis of myocarditis. There is focal cardiomyocyte vacuolization, which is non-specific but could reflect ischemic injury. Results were discussed with Dr. Brandon Tierney on 03/20/18 at 3:30PM. Attestation: By this signature, I attest that I have personally formulated the final interpretation expressed in this report and that the above diagnosis is based upon my examination of the slides and/or other material indicated in this report. 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 There is myocyte hypertrophy and focal myocyte vacuolization. There are no lymphoid aggregates. Immunostain for CD3 shows a few scattered positive cells but less than 9 per square mm. Immunostain for CD68 also shows a few scattered cells, especially in areas of fibrosis. Gross Description: A. Received in formalin labeled "right ventricle" is a 0.3 x 0.2 x 0.2 cm aggregate of irregular, pettit-brown soft tissue fragments. The specimen is submitted entirely in cassette A1.(lmt) lt/03/19/2018 If immunohistochemical stains and/or in situ hybridization are cited in this report, the performance characteristics were determined by the Department of Pathology and Laboratory Medicine of the [facility] ([employer] [facility]) in compliance with CLIA'88 regulations.Some of these tests rely on the use of "analyte specific reagents" and are subject to specific labeling requirements by the FDA. Known positive and negative control tissues demonstrate appropriate staining.Results should be interpreted with caution given the likelihood of false negativity on decalcified specimens.This testing was developed by the Department of Pathology and Laboratory Medicine of the [facility].It has not been cleared or approved by the FDA.The FDA has determined that such clearance or approval is not necessary. Specimen Performing Laboratory [facility] RESULTS * OSMOLALITY-URINE RANDOM (03/19/2018 8:31 AM) Component Value Ref Range Osmolality-Urine 324 50 - 1,400 MOS/KG Specimen Performing Laboratory Urine [facility] [address] [place] [address] * RVP VIRAL PANEL PCR (03/19/2018 8:18 AM) Component Value Ref Range Specimen Source NASAL WASH Adenovirus NOT DETECTED Coronavirus 229E NOT DETECTED Coronavirus HKU1 NOT DETECTED Coronavirus NL63 NOT DETECTED Coronavirus OC43 NOT DETECTED Human Metapneumovirus NOT DETECTED Human NOT DETECTED Rhinovirus/ENTEROVIRUS Influenza A H1N1 2009 NOT DETECTED Influenza A H1 NOT DETECTED Influenza A H3 NOT DETECTED Influenza B NOT DETECTED Parainfluenza 1 NOT DETECTED Parainfluenza 2 NOT DETECTED Parainfluenza 3 DETECTED Parainfluenza 4 NOT DETECTED RSV NOT DETECTED Bordetella Pertussis NOT DETECTED Chlamydophila Pneumoniae NOT DETECTED Mycoplasma Pneumoniae NOT DETECTED Specimen Performing Laboratory Nasopharyngeal Swab MAIN LAB [address] [place], [place] [id number] * GRAM STAIN (03/19/2018 8:15 AM) Component Value Ref Range Battery Name GRAM STAIN Specimen Description SPUTUM Special Requests NONE Gram Stain GREATER THAN 25/LPF NEUTROPHILS LESS THAN 10/LPF SQUAMOUS EPITHELIAL CELLS FEW MIXED BACTERIA Report Status FINAL 03/19/2018 Specimen Performing Laboratory Sputum MAIN LAB [address] [place], [place] [id number] * CULTURE-RESP,LOWER W/SENSITIVITY (03/19/2018 8:15 AM) Component Value Ref Range Battery Name LOWER RESP CULTURE Specimen Description SPUTUM Special Requests NONE Direct Gram Stain GREATER THAN 25/LPF NEUTROPHILS LESS THAN 10/LPF SQUAMOUS EPITHELIAL CELLS FEW MIXED BACTERIA Culture Light growth NORMAL OROPHARYNGEAL REINIER Report Status FINAL 03/21/2018 Specimen Performing Laboratory Sputum MAIN LAB [address] [place] [address] * CORTISOL,RANDOM (03/19/2018 8:10 AM) Component Value Ref Range Cortisol, Random 38.4 (H) 5.0 - 20.0 MCG/DL Specimen Performing Laboratory Blood MAIN LAB [address] [place] [address] * OSMOLALITY (03/19/2018 8:10 AM) Component Value Ref Range Osmolality 290 280 - 307 MOSMOL/KG Specimen Performing Laboratory Blood MAIN LAB [address] [place] [address] * LACTIC ACID (BG - RAPID LACTATE) (03/19/2018 4:20 AM) Only the most recent of 3 results within the time period is included. Component Value Ref Range Lactic Acid,BG 2.0 0.5 - 2.0 MMOL/L Specimen Performing Laboratory Blood MAIN LAB [address] [place], [place] [id number] * HEMOGLOBIN A1C (03/19/2018 4:00 AM) Component Value Ref Range Hemoglobin A1C 6.6 (H) 4.0 - 6.0 % Comment: The ADA recommends that most patients with type 1 and type 2 diabetes maintain an A1c level <7%. Specimen Performing Laboratory Blood MAIN LAB [address] [place] [address] * LIPID PROFILE (03/19/2018 4:00 AM) Component Value Ref Range Cholesterol 66 <200 MG/DL Triglycerides 35 <150 MG/DL HDL 36 (L) >40 MG/DL LDL 23 <100 MG/DL VLDL 7 MG/DL Non HDL Cholesterol 30 MG/DL Comment: Calculated non-HDL Cholesterol (non-HDL-C) indirectly measures LDL-C, Lp(a), IDL-C, and VLDL-C.It is a surrogate marker for Apoprotein B.Goal should be less than 130 mg/dL. Specimen Performing Laboratory Blood MAIN LAB [address] [place] [address] * AEROBIC BACTERIA, SUSCEPT (03/19/2018 2:40 AM) Component Value Ref Range Aerobic Bacteria, Suscept FINAL 03/27/2018 1445 SOURCE: BLOOD, BLOOD, STREP MITIS/ORALIS GROUP SUSCEPTIBILITY, AEROBIC, KAREN FINAL STREPTOCOCCUS MITIS/ORALIS Organism identified by client. -------- Organism STREPTOCOCCUS MITIS/ORALIS AntibioticMIC (mcg/mL)Interpretation -------- Penicillin 1 I Cefepime <=0.5 S Ceftriaxone<=0.5 S Meropenem <=0.25 S Levofloxacin <=2 S Erythromycin>0.5 R Vancomycin <=1 S S=SUSCEPTIBLEI=INTERMEDIATER=RESISTANT N=NONSUSCEPTIBLED=SUSCEPTIBLE [facility] Specimen Performing Laboratory MAIN LAB [address] [place] [id number] * UA REFLEX CULTURE LABEL (03/19/2018 1:55 AM) Component Value Ref Range UA Reflex Culture LAB LABEL Specimen Performing Laboratory MAIN LAB [address] [place] [address] * URINALYSIS MICROSCOPIC REFLEX TO CULTURE (03/19/2018 1:55 AM) Component Value Ref Range WBCs,UA NONE 0 - 2 /HPF RBCs,UA NONE 0 - 3 /HPF Comment,UA Urine submitted for reflex culture if criteria are met:WBC>10, positive nitrite and/or >=1+ leukocyte esterase. If quantity is not sufficient, an addendum will follow. Specimen Performing Laboratory MAIN LAB [address] [place] [address] * URINALYSIS DIPSTICK REFLEX TO CULTURE (03/19/2018 1:55 AM) Component Value Ref Range Color,UA LUZ Turbidity,UA 2+ (A) CLEAR-CLEAR Specific Leon-Urine 1.020 1.003 - 1.035 pH,UA 5.0 5.0 - 8.0 Protein,UA 2+ (A) NEG-NEG Glucose,UA 1+ (A) NEG-NEG Ketones,UA NEG NEG-NEG Bilirubin,UA NEG NEG-NEG Blood,UA 3+ (A) NEG-NEG Urobilinogen,UA NORMAL NORM-NORMAL Nitrite,UA NEG NEG-NEG Leukocytes,UA 2+ (A) NEG-NEG Urine Ascorbic Acid, UA NEG NEG-NEG Specimen Performing Laboratory [facility] LAB [address] [place] [id number] * UREA NITROGEN-URINE RANDOM (03/19/2018 1:55 AM) Component Value Ref Range Urea Nitrogen 236 MG/DL Specimen Performing Laboratory Urine [facility] LAB [address] [place] [address] * SODIUM-URINE RANDOM (03/19/2018 1:55 AM) Component Value Ref Range Sodium, Random 30 MMOL/L Specimen Performing Laboratory Urine [facility] [address] [place] [address] * CREATININE-URINE RANDOM (03/19/2018 1:55 AM) Component Value Ref Range Creatinine, Random 111 MG/DL Specimen Performing Laboratory Urine MAIN LAB [address] [place] [id number] * CULTURE-URINE W/SENSITIVITY (03/19/2018 1:55 AM) Component Value Ref Range Battery Name URINE CULTURE Specimen Description URINE Special Requests NONE Culture >100,000 organisms/ml KLEBSIELLA (formerly Enterobacter) AEROGENES (A) Report Status FINAL 03/21/2018 Organism ID >[id number] organisms/ml KLEBSIELLA (formerly Enterobacter) AEROGENES Specimen Performing Laboratory Urine MAIN LAB [address] [place] [address] Organism Antibiotic Method Susceptibility >100,000 organisms/ml Ampicillin KAREN (MCG/ML) >16 RESISTANT: Resistant klebsiella (formerly INTERPRETATION enterobacter) aerogenes >100,000 organisms/ml Amoxicil/Clav Acid KAREN (MCG/ML) >16/8 RESISTANT: klebsiella (formerly INTERPRETATION Resistant enterobacter) aerogenes >100,000 organisms/ml Cefazolin KAREN (MCG/ML) >16 RESISTANT: Resistant klebsiella (formerly INTERPRETATION enterobacter) aerogenes >100,000 organisms/ml Levofloxacin KAREN (MCG/ML) <=1 SUSCEPTIBLE: klebsiella (formerly INTERPRETATION Susceptible enterobacter) aerogenes >100,000 organisms/ml Nitrofurantoin KAREN (MCG/ML) 32 SUSCEPTIBLE: klebsiella (formerly INTERPRETATION Susceptible enterobacter) aerogenes >100,000 organisms/ml Gentamicin KAREN (MCG/ML) <=2 SUSCEPTIBLE: klebsiella (formerly INTERPRETATION Susceptible enterobacter) aerogenes >100,000 organisms/ml Trimethsulfa KAREN (MCG/ML) <=0.5/9.5 SUSCEPTIBLE: klebsiella (formerly INTERPRETATION Susceptible enterobacter) aerogenes >100,000 organisms/ml Piperacil/Tazobactam KAREN (MCG/ML) 8/4 SUSCEPTIBLE: klebsiella (formerly INTERPRETATION Susceptible enterobacter) aerogenes >100,000 organisms/ml Tetracycline KAREN (MCG/ML) <=2 SUSCEPTIBLE: klebsiella (formerly INTERPRETATION Susceptible enterobacter) aerogenes >100,000 organisms/ml Cefepime KAREN (MCG/ML) <=1 SUSCEPTIBLE: klebsiella (formerly INTERPRETATION Susceptible enterobacter) aerogenes >100,000 organisms/ml Ertapenem KAREN (MCG/ML) <=0.25 SUSCEPTIBLE: klebsiella (formerly INTERPRETATION Susceptible enterobacter) aerogenes >100,000 organisms/ml Ceftriaxone KAREN (MCG/ML) <=1 SUSCEPTIBLE: klebsiella (formerly INTERPRETATION Susceptible enterobacter) aerogenes >100,000 organisms/ml Method KAREN (MCG/ML) KAREN (MCG/ML) klebsiella (formerly INTERPRETATION INTERPRETATION enterobacter) aerogenes * PROCALCITONIN (03/19/2018 12:15 AM) Component Value Ref Range Procalcitonin 1.08 (H) <0.10 NG/ML Specimen Performing Laboratory MAIN LAB [address] [place] [address] * FREE T4-FREE THYROXINE (03/19/2018 12:15 AM) Component Value Ref Range T4-Free 1.1 0.6 - 1.6 NG/DL Specimen Performing Laboratory MAIN LAB [address] [place] [address] * TSH WITH FREE T4 REFLEX (03/19/2018 12:15 AM) Component Value Ref Range TSH 6.450 (H) 0.35 - 5.00 MCU/ML Specimen Performing Laboratory Blood MAIN LAB [address] [place] [address] * TROPONIN-I (03/19/2018 12:15 AM) Component Value Ref Range Troponin-I 0.02 0.0 - 0.05 NG/ML Specimen Performing Laboratory Blood MAIN LAB [address] [place] [address] * CBC AND DIFF (03/19/2018 12:15 AM) Component Value Ref Range White Blood Cells 15.9 (H) 4.5 - 11.0 K/UL RBC 4.85 4.0 - 5.0 M/UL Hemoglobin 13.6 12.0 - 15.0 GM/DL Hematocrit 41.3 36 - 45 % MCV 85.3 80 - 100 FL MCH 28.2 26 - 34 PG MCHC 33.0 32.0 - 36.0 G/DL RDW 16.6 (H) 11 - 15 % Platelet Count 148 (L) 150 - 400 K/UL MPV 9.3 7 - 11 FL Neutrophils 91 (H) 41 - 77 % Lymphocytes 3 (L) 24 - 44 % Monocytes 5 4 - 12 % Eosinophils 0 0 - 5 % Basophils 1 0 - 2 % Absolute Neutrophil Count 14.50 (H) 1.8 - 7.0 K/UL Absolute Lymph Count 0.50 (L) 1.0 - 4.8 K/UL Absolute Monocyte Count 0.80 0 - 0.80 K/UL Absolute Eosinophil Count 0.00 0 - 0.45 K/UL Absolute Basophil Count 0.20 0 - 0.20 K/UL Specimen Performing Laboratory Blood MAIN LAB [address] [place] [address] * BNP (B-TYPE NATRIURETIC PEPTI) (03/19/2018 12:15 AM) Component Value Ref Range B Type Natriuretic 350.0 (H) 0 - 100 PG/ML Peptide Specimen Performing Laboratory Blood MAIN LAB [address] [place] [address] * CREATINE KINASE-CPK (03/19/2018 12:15 AM) Component Value Ref Range Creatine Kinase 86 21 - 215 U/L Specimen Performing Laboratory MAIN LAB [address] [place] [address] * GENERAL RAD CHEST EXTERNAL IMAGING (03/18/2018) Narrative This order has been auto finalized and does not contain a result. from Last 3 Months
--- OUTSIDE RECORDS SUMMARY | 2018-04-03 14:08 | XMS REPORT | Encounter Summary ---
Author Author [facility] Organization [facility] Address Unknown Phone Unavailable Care Team Providers Care [employer] W[employer] Name Role Phone No Pcp, Na PCP Unavailable Brad Cummings MD PCP Reason for Referral * Status Reason Specialty Diagnoses / Referred By Referred To Procedures Contact Contact New Request Procedures Carol CARDIOLOGY HEART Zafar Larsen MD FAILURE FOLLOW [address] [facility] [place] [place] [address] * Status Reason Specialty Diagnoses / Referred By Referred To Procedures Contact Contact New Request Procedures Carol CARDIOLOGY HEART Zafar Larsen MD FAILURE FOLLOW [address] [facility] [place] [place] [address] Reason for Visit * Auth/Cert Status Reason Specialty Diagnoses / Referred By Referred To Procedures Contact Contact Diagnoses cardiogenic shock Cardiogenic shock (HCC) Encounter Details Date Type Department Care Team Description 03/18/2018 [place] [id number] Alem Jones MD Cardiogenic shock (HCC) - [facility]counter [address] [facility] [address] [facility] 04/03/2018 [place] [address] [address] [place] [address] [phone] Philippe Simmons MD [address] [facility] [address] [place] [address] [phone] Zafar Glynn MD [address] [place] [address] [phone] Social History Tobacco Use Types Packs/Day Years Used Date Former Smoker Cigarettes 1 40 Comments: Quit 8 years ago Alcohol Use Drinks/Week oz/Week Comments Yes Occassionally Sex Assigned at Date Recorded Not on file as of this encounter Last Filed Vital Signs Vital Sign Reading [...] Mass Index 33.09 04/02/2018 12:59 PM CDT in this encounter Functional Status Functional Status Response Date of Assessment Does the patient have a hearing impairment: No 03/22/2018 as of this encounter Medications at Time of Discharge Medication Sig. Disp. Refills Start Date End Date acetaminophen SR(+) Take 650 mg by mouth (TYLENOL 8 HOUR) 650 mg every 6 hours as needed tablet for Pain. amiodarone (CORDARONE) Take 1 tablet by mouth 90 tablet 3 04/03/2018 200 mg tablet daily. Take with food. apixaban (ELIQUIS) 5 mg Take 1 tablet by mouth 60 tablet 2 04/03/2018 tablet twice daily. aspirin 81 mg chewable Chew 1 tablet by mouth 90 tablet 3 04/03/2018 tablet daily. Take with food. bumetanide (BUMEX) 2 mg Take 1 tablet by mouth 60 tablet 1 04/03/2018 tablet daily. digoxin 62.5 mcg tab Take 1 tablet by mouth 90 tablet 3 04/03/2018 daily. glimepiride (AMARYL) 2 mg Take 2 mg by mouth twice tablet daily. insulin detemir(+) Inject 16 Units under the (LEVEMIR) 100 unit/mL skin twice daily before soln meals. levothyroxine (SYNTHROID) Take 125 mcg by mouth 125 mcg tablet daily 30 minutes before breakfast. lisinopril (PRINIVIL; Take 10 mg by mouth ZESTRIL) 10 mg tablet daily. metFORMIN (GLUCOPHAGE) Take 1,000 mg by mouth 1,000 mg tablet twice daily with meals. PARoxetine (PAXIL) 40 mg Take 40 mg by mouth tablet daily. potassium chloride SR Take 1 tablet by mouth 90 tablet 3 04/03/2018 (K-DUR) 20 mEq tablet daily. Take with a meal and a full glass of water. simvastatin (ZOCOR) 20 mg Take 1 tablet by mouth at 90 tablet 3 2017 tablet bedtime daily. sitaGLIPtin (JANUVIA) 100 Take 100 mg by mouth mg tab tablet daily. spironolactone Take 1 tablet by mouth 90 tablet 3 04/03/2018 (ALDACTONE) 25 mg tablet daily. Take with food. as of this encounter Progress Notes * Kaden Alejandro RN - 04/03/2018 10:09 AM CDT Farheen Gutierres discharged on 04/03/2018. . Discharge instructions reviewed with patient and family. Valuables returned: . Home medications: . Functional assessment at discharge complete: Yes . Discharge instructions reviewed with pt and family members, no questions or concerns at this time. PIVs removed and all belongings returned. Report called to Rehab facility, pt discharged via wheelchair accompanied by transport. * Alyssa Lund, PT - 04/02/2018 4:03 PM CDT PHYSICAL THERAPY PROGRESS NOTE MOBILITY: Progressive Mobility Level: Walk in hallway Distance Walked (feet): 30 ft Level of Assistance: Assist X1 Assistive Device: Walker Time Tolerated: 0-10 minutes Activity Limited By: Fatigue SUBJECTIVE: Significant hospital events: Reason for admission: cardiogenic shock and acute decompensated heart failure; IABP removed (03/19) ICD placed (03/27) Mental / Cognitive Status: Alert;Cooperative Pain: Patient complains of pain;Patient does not rate pain Pain Location: Right;Thigh Pain Description: Aching Pain Interventions: Patient agrees to participate in therapy;Patient assisted into position of comfort;Treatment altered to patient's pain tolerance;Pain unchanged after treatment Precautions: Pacemaker Precautions Comments: Patient on RA Ambulation Assist: Independent Mobility in Community without Device Patient Owned Equipment: None Home Situation: Lives Alone Type of Home: House Entry Stairs: 1-2 Stairs In-Home Stairs: Able to Live on One Level BED MOBILITY/TRANSFERS: Comments: Patient recieved seated edge of bed and wishes to remain sitting edge of bed upon PT exit. Transfer Type: Sit to/from Stand Transfer: Assistance Level: To/From;Bed;Minimal Assist Transfer: Assistive Device: Roller Walker Transfers: Type Of Assistance: For Safety Considerations;Verbal Cues;For Strength Deficit;For Balance End Of Activity Status: Sitting at Edge of Bed;Instructed Patient to Request Assist with Mobility;Instructed Patient to Use Call Light GAIT: Gait Distance: 30 feet Gait: Assistance Level: Minimal Assist;Safety Considerations Gait: Assistive Device: Roller Walker Gait: Descriptors: Pace: Slow;Decreased foot clearance LLE;Decreased foot clearance RLE Comments: Patient requires increased time to complete distance. Patient requires cues for upright posture during ambulation. Activity Limited By: Complaint of Fatigue EDUCATION: Persons Educated: Patient Patient Barriers To Learning: None Noted Interventions: Repetition of Instructions;Demonstration Provided Teaching Methods: Verbal Instruction;Demonstration Patient Response: More Instruction Required Topics: Plan/Goals of PT Interventions;Use of Assistive Device/Orthosis; Mobility Progression;Safety Awareness;Up with Assist Only;Importance of Increasing Activity;Recommend Continued Therapy ASSESSMENT/PROGRESS: Impaired Mobility Due To: Decreased Strength;Impaired Balance;Decreased Activity Tolerance Assessment/Progress: Should Improve w/ Continued PT Comments: Patient tolerates activity very well this date and will continue to benefit from current plan of care to improve strengthening, endurance, and safety with upright mobility. AM-PAC 6 Clicks Basic Mobility Inpatient Turning from your back to your side while in a flat bed without using bed rails : A Little Moving from lying on your back to sitting on the side of a flatbed without using bedrails : A Little Moving to and from a bed to a chair (including a wheelchair): A Little Standing up from a chair using your arms (e.g. wheelchair, or bedside chair): A Little To walk in hospital room: A Little Climbing 3-5 steps with a railing: A Lot Raw Score: 17 Standardized (T-scale) Score: 39.67 Basic Mobility CMS 0-100%: 43.83 CMS G Code Modifier for Basic Mobility: CK GOALS: Goal Formulation: With Patient Time For Goal Achievement: 5 days, To, 7 days Pt Will Go Supine To/From Sit: Independently Pt Will Transfer Bed/Chair: Independently Pt Will Ambulate: Greater than 200 Feet, w/ No Device, Independently Pt Will Go Up / Down Stairs: 1-2 Stairs, Independently PLAN: Treatment Interventions: Mobility Training;Strengthening;Balance Activities; Endurance Training Plan Frequency: 5 Days per Week PT Plan for Next Visit: Repeated transfer training, progress ambulation as able. RECOMMENDATIONS: PT Discharge Recommendations: Inpatient Setting Therapist: Alyssa Lund, PT Date: 04/02/2018 * Pawan Kinsey RT - 04/02/2018 10:51 AM CDT RT Exercise Oximetry Note NAME:Farheen Gutierres :1950 AGE: 68 y.o. ADMISSION DATE: 03/18/2018 DAYS ADMITTED: LOS: 15 days Date performed: 04/02/2018 Time performed: 1035 Time walked: 10 minutes At Rest While Awake Results Room air at rest while awake: SpO2=94% Oxygen required at rest while awake: no oxygen required With Exercise Results: Room air SpO2 with exercise, if needed: Spo2=90% Oxygen required with exercise, if needed: no oxygen required Oxygen required with exercise: none Comments: Pt walked in hallway with gait belt and following with chair. Pt Spo2 remained between 90%-94% on room air throughout entire oximetry test. Therapist: Pawan Kinsey, RT * Dagmar Sanchez - 04/02/2018 10:02 AM CDT OCCUPATIONAL THERAPY PROGRESS NOTE Patient Name: Farheen Gutierres Room/Bed: [facility] Admitting Diagnosis: cardiogenic shock Cardiogenic shock (HCC) Mobility Progressive Mobility Level: Walk in room Distance Walked (feet): 15 ft Level of Assistance: Assist X1 Assistive Device: Walker Time Tolerated: 11-30 minutes Activity Limited By: Fatigue Subjective Precautions: Falls;Isolation;O2 Requirement;Pacemaker Precautions Pain / Complaints: Patient agrees to participate in therapy Comments: patient supine in bed at start of session. Left sitting EOB with spouse, awaiting RT for walk. Objective Psychosocial Status: Willing and Cooperative to Participate Persons Present: Spouse ADL's Where Assessed: Standing at Sink;In Bathroom Grooming Assist: Stand By Assist Grooming Deficits: Wash/Dry Hands Toileting Assist: Maximum Assist Toileting Deficits: Perineal Hygiene Functional Transfer Assist: Minimal Assist Functional Transfer Deficits: Verbal Cueing;Supervision/Safety;Increased Time to Complete Comment: Patient required encouragement to attempt transfers on her own before allowing spouse to assist. Patient required contact guard assist only. Requested assist for perineal care from spouse. Activity Tolerance Endurance: 2/5 Tolerates 10-20 Minutes Exercise w/Multiple Rests Cognition Overall Cognitive Status: WFL to Adequately Complete Self Care Tasks Safely Education Persons Educated: Patient/Family Barriers To Learning: None Noted Teaching Methods: Verbal Instruction Patient Response: Verbalized Understanding Topics: Role of OT, Goals for Therapy Goal Formulation: With Patient Assessment Assessment: Decreased Endurance;Decreased High-Level ADLs Prognosis: Good Goal Formulation: Patient AM-PAC 6 Clicks Daily Activity Inpatient Putting on and taking off regular lower body clothes?: A Lot Bathing (Including washing, rinsing, drying): A Lot Toileting, which includes using toilet, bedpan, or urinal: A Lot Putting on and taking off regular upper body clothing: A Little Taking care of personal grooming such as brushing teeth: None Eating meals?: None Daily Activity Raw Score: 17 Standardized (t-scale) score: 37.26 CMS 0-100% Score: 50.11 CMS G Code Modifier: CK Plan OT Frequency: 3-5x/week OT Plan for Next Visit: Progress standing endurance for ADLs. ADL Goals Patient Will Perform Grooming: Standing at Sink;w/ Stand By Assist Patient Will Perform Toileting: w/ Minimum Assist Functional Transfer Goals Pt Will Transfer To Bedside Commode: w/ Minimum Assist, Met OT Discharge Recommendations OT Discharge Recommendations: Inpatient Setting Equipment Recommendations: Too early to be determined Recommend ongoing assistance for: In and out of house, Transfers, Bed mobility, Stairs, Ambulation Therapist: Dagmar Hernandez OTR/L Date: 04/02/2018 * Tamy Rose RN - 04/02/2018 1:14 AM CDT Formatting of this note may be different from the original. 04/02/18 0110 04/02/18 0112 Vitals SpO2 (!) 87 % 93 % O2 Delivery RA NC $$ O2 Device -- Cannula O2 Liter Flow -- 1 lpm The patient's pulse oximetry was alarming. The patient did not have any symptoms of respiratory distress at this time. The patient was on 1L NC yesterday. Her saturations are within normal limits when she is awake, but they drop when she sleeps. The patient was placed back on oxygen and respitorary was notified. * Tamy Rose RN - 04/02/2018 12:36 AM CDT 0039- The MD on-call was notified that telemetry called and stated that the patient was in ventricular standstill for 8 seconds at 2109. This RN was with the patient at this time and it was found that a lead was in the wrong place and many had fallen off. The patient was asymptomatic this entire time. It was originally thought that the data was not accurate, but the customer account technician stated later he thought it might be real. The MD reviewed the data and he stated he would come up to the unit to further investigate. 0048- The MD on-call stated no further orders are needed at this time. * Dagmar Sanchez - 04/01/2018 3:10 PM CDT OCCUPATIONAL THERAPY NOTE The patient was not seen due to: Patient declined at 14:00 and was sleeping at 15:10. Spouse reports patient walked in hallway and to bathroom. Occupational therapy will continue to follow and provide intervention as indicated. Therapist: Dagmar Hernandez, KUSHR/Micki [id number] Date: 04/01/2018 * Dana Gregg - 04/01/2018 12:58 PM CDT CLINICAL NUTRITION Clinical Nutrition Follow-Up Summary Nutrition Assessment of Patient: Malnutrition Assessment: Adequately nourished prior to admission Current Oral Intake: Improving, Marginally Adequate Estimated Calorie Needs: 8934-6838 (25-28 kcals/kg per DBW 69.9kg) Estimated Protein Needs: 84-98 (1.2-1.4 gm/kg per DBW 69.9kg) Oral Diet Order: Cardiac Oral Supplement: Boost Glucose Control, PRN Pt is a 68 y.o. female with a PMH that includes DM II (A1c 6.6%), HTN, HLD, hypothyroidism who transferred from outside facility for cardiogenic shock on . Pt started on TF 03/19. Pt extubated 03/22 and didn't pass initial swallow study, so continued on TFs up until ~noon on 03/25 when tube was removed. Pt cleared for regular diet with thin liquids by HATCHERY MANAGER on 03/25. Now on cardiac diet with thin liquids. Note weight is down 10.3 kg, but is net negative 29.4 L per I /Os. PO intakes continue to improve. She is eating 50-100% of her meals. Denies GI issues. Labs and meds reviewed. Note plans to discharge to [facility] soon. Recommendation: Add on 60 g/meal consistent carb diet to cardiac diet. Offer Boost GC if PO intakes are poor. Intervention / Plan: Encourage continued good PO intake efforts. Offered Boost GC Monitor PO intakes, GI, wt, labs, meds Nutrition Diagnosis: Nutrition Diagnosis: Inadequate protein-energy intake Etiology: low appetite Signs & Symptoms: eating 50-100% of 1-2 meals daily Goals: Patient to consume >75% of meals/supplements Time Frame: Within 72 Hours Status: Partially met;Ongoing Dana Pemberton, MS, RD, LD Pager *[phone] * JinaarturoFabian miller, PT - 04/01/2018 11:55 AM CDT PHYSICAL THERAPY PROGRESS NOTE MOBILITY: Mobility Progressive Mobility Level: Walk in room Distance Walked (feet): 18 ft Level of Assistance: Assist X1 (With second staff member providing chair follow) Assistive Device: Walker Time Tolerated: 11-30 minutes Activity Limited By: Fatigue;Weakness SUBJECTIVE: Subjective Significant hospital events: Reason for admission: cardiogenic shock and acute decompensated heart failure; IABP removed (03/19) ICD placed (03/27) Mental / Cognitive Status: Alert;Cooperative Persons Present: RehabTechnician Pain: Patient complains of pain;Patient does not rate pain Pain Location: Right;Thigh Pain Description: Aching Pain Interventions: Patient agrees to participate in therapy;Patient assisted into position of comfort;Treatment altered to patient's pain tolerance;Pain unchanged after treatment Comments: Patient's R thigh does not appear warm to touch and patient reports no calf pain with squeezes. Precautions: Pacemaker Precautions Comments: Patient on 2L supplemental oxygen throughout visit today Ambulation Assist: Independent Mobility in Community without Device Patient Owned Equipment: None Home Situation: Lives Alone Type of Home: House Entry Stairs: 1-2 Stairs In-Home Stairs: Able to Live on One Level ROM: ROM ROM Position Assessed: Seated ROM Method: Active LE ROM: Bilateral;WFL STRENGTH: Strength Strength Position Assessed: Seated Overall Strength: Generalized Weakness BED MOBILITY/TRANSFERS: Bed Mobility/Transfers Bed Mobility: Supine to Sit: Minimal Assist;Head of Bed Elevated;Use of Rail; Requires Extra Time Transfer Type: Sit to Stand Transfer: Assistance Level: From;Bed;Minimal Assist Transfer: Assistive Device: Roller Walker Transfers: Type Of Assistance: For Safety Considerations;Verbal Cues;For Strength Deficit;For Balance Other Transfer Type: Stand to Sit Other Transfer: Assistance Level: To;Bed Side Chair;Minimal Assist Other Transfer: Assistive Device: Roller Walker Other Transfer: Type Of Assistance: For Safety Considerations;Verbal Cues;For Strength Deficit;For Balance End Of Activity Status: Up in Chair;Nursing Notified;Instructed Patient to Request Assist with Mobility;Instructed Patient to Use Call Light Comments: Patient requires multiple cues for appropriate hand placement during transfers and will continue to require education regarding this. GAIT: Gait Gait Distance: 18 feet Gait: Assistance Level: Minimal Assist;of 1st person;Standby Assist;of 2nd person (Panelboard Assembler provides chair follow today) Gait: Assistive Device: Roller Walker Gait: Descriptors: Pace: Slow;Decreased foot clearance LLE;Decreased foot clearance RLE Comments: Patient very pleased with her gait performance today and states this is the farthest distance she has ambulated since being admitted Activity Limited By: Complaint of Fatigue;Weakness EDUCATION: Education Persons Educated: Patient Patient Barriers To Learning: None Noted Interventions: Repetition of Instructions;Demonstration Provided Teaching Methods: Verbal Instruction;Demonstration Patient Response: More Instruction Required Topics: Plan/Goals of PT Interventions;Use of Assistive Device/Orthosis; Mobility Progression;Safety Awareness;Up with Assist Only;Importance of Increasing Activity;Recommend Continued Therapy ASSESSMENT/PROGRESS: Assessment/Progress Impaired Mobility Due To: Decreased Strength;Impaired Balance;Decreased Activity Tolerance Assessment/Progress: Should Improve w/ Continued PT Comments: Patient tolerates activity very well this date and will continue to benefit from current plan of care to improve strengthening, endurance, and safety with upright mobility. AM-PAC 6 Clicks Basic Mobility Inpatient Turning from your back to your side while in a flat bed without using bed rails : A Little Moving from lying on your back to sitting on the side of a flatbed without using bedrails : A Little Moving to and from a bed to a chair (including a wheelchair): A Little Standing up from a chair using your arms (e.g. wheelchair, or bedside chair): A Little To walk in hospital room: A Little Climbing 3-5 steps with a railing: A Lot Raw Score: 17 Standardized (T-scale) Score: 39.67 Basic Mobility CMS 0-100%: 43.83 CMS G Code Modifier for Basic Mobility: CK GOALS: Goals Goal Formulation: With Patient Time For Goal Achievement: 5 days, To, 7 days Pt Will Go Supine To/From Sit: Independently Pt Will Transfer Bed/Chair: Independently Pt Will Ambulate: Greater than 200 Feet, w/ No Device, Independently Pt Will Go Up / Down Stairs: 1-2 Stairs, Independently PLAN: Plan Treatment Interventions: Mobility Training;Strengthening;Balance Activities; Endurance Training Plan Frequency: 5 Days per Week PT Plan for Next Visit: Continue to progress gait and dynamic balance activities as appropriate. RECOMMENDATIONS: PT Discharge Recommendations PT Discharge Recommendations: Inpatient Setting Equipment Recommendations: Too early to be determined PT Plan for Next Visit: PT Plan for Next Visit: Continue to progress gait and dynamic balance activities as appropriate. Therapist: Fabian Aaron, PT, DPT Date: 04/01/2018 * Toni Aly, RT - 03/31/2018 5:02 PM CDT Formatting of this note may be different from the original. RESPIRATORY THERAPY ADULT PROTOCOL EVALUATION RESPIRATORY PROTOCOL PLAN Medications Note: If indicated by protocol, medication orders will be placed by therapist. Procedures Vibrating PEP Therapy: BID PAP: Q4h PAP While Awake IPPB: Place a nursing order for "IS Q1h While Awake" for any of Lung Expansion indicators Oxygen/Humidity: O2 to keep SpO2 > 92% Monitoring: Pulse oximetry BID & PRN PATIENT EVALUATION RESULTS Chart Review * Pulmonary Hx: Smoker in home OR smoking cessation > 8 weeks (former smoker) * Surgical Hx: No surgery OR last surgery > 6 weeks ago OR trach/stoma (BA) * Chest X-Ray: Clear OR not available (last image > 3 days prior) * PFT/Oxygenation: FEV1, PEFR < 70% OR Pa02 < 70 RA OR Sp02 <92% RA OR Fi02 > 0.21 to keep Sp02 > 92% OR < 24 hours post-op (02 & oxim) OR chronic C02 retention (C02) Patient Assessment * Respiratory Pattern: Regular pattern and rate OR good chest excursion with deep breathing * Breath Sounds: Crackles (no CHF) (LE) OR crackles (no CHF) with ineffective cough (AC) * Cough / Sputum: Fair cough or effort (AC) OR moderate amount sputum * Mental Status: Alert, oriented, cooperative * Activity Level: Ambulatory with assistance Priority Index Total Points: 9 Points * Priority Index: 1 PRIORITY INDEX GUIDELINES* Priority Points 1 0-9 points 2 9-18 points 3 > 18 points + Pulm Dx or Home Rx *Higher points indicate higher acuity. Therapist: Toni Aly RT Date: 03/31/2018 Fall AC=Airway clearance AM=Aerosolized medication BA=[place]kin aerosol DB&C=Deep breathe & cough FEV1=Forced expiratory volume in first second) IC=Inspiratory capacity LE=Lung expansion MDI=Metered dose inhaler Neb=Nebulizer O2=Oxygen Oxim=Oximetry PEFR=Peak expiratory flow rate PRESS TENDER SMOKE SIGNAL=Rapid Response Team * Philippe Aguero MD - 03/31/2018 10:28 AM CDT Teaching Physician Attestation: I have personally interviewed and examined the patient, have reviewed the documentation, and agree with the assessment and plan of the resident. She has had some right groin pain. She has a small area of ecchymosis. There is no pulsatility and no bruit. We will going to get a right groin duplex to rule out pseudoaneurysm and deep vein thrombosis. She has been ambulating. There is been no significant chest pain or shortness of breath. She has had good urine output and good diuresis. She is currently on dobutamine 2 mcg/kg/min and will going to reduce that today down to 1 mcg/kg/min. If this is tolerated we may be able to discontinue the dobutamine on Sunday. Her hemoglobin is 11.9 platelet count 141,001 white blood cell count is 10.8. The creatinine is stable at 1.06 potassium is 3.7 and will need replacement. Had a long talk with the patient and her we have answered all of their questions. She will need a follow-up echocardiogram next week. We need to try and make discharge plans to go to the inpatient facility in [facility]. If she fails the dobutamine weaning she will need to transition to milrinone, which is possible to take at that facility in [place]. I understand dobutamine is not possible to administer. Philippe Aguero MD * Shar Yousif MBBS - 03/31/2018 10:22 AM CDT Formatting of this note may be different from the original. Progress Note Name: Farheen Gutierres Admission Date: 03/18/2018 Admission Diagnosis: cardiogenic shock Cardiogenic shock (HCC) Principal Problem: Cardiogenic shock (HCC) Active Problems: RYAN (acute kidney injury) (HCC) HLD (hyperlipidemia) Type II diabetes mellitus (HCC) Essential hypertension Hypothyroidism PAF (paroxysmal atrial fibrillation) (HCC) Junctional bradycardia Morbid obesity with BMI of 45.0-49.9, adult (HCC) Nonischemic cardiomyopathy (HCC) Acute systolic heart failure (HCC) Pulmonary edema Acute respiratory failure with hypoxia (HCC) Shock liver Hyponatremia Infection due to parainfluenza virus 3 Cardiorenal syndrome Assessment/Plan: Farheen Gutierres is a 68 y.o. female with a history of Diabetes mellitus on insulin, Hypertension, Hyperlipidemia, Hypothyroidism, admitted for management of cardiogenic shock and acute decompensated Heart failure Changes Today: - Decrease bumetanide: 2 mg QAM only - insulin: increase 22 U insulin glargine QAM and 22 units QHS and 8 U insulin aspart TID AC - Decrease dobutamine to 1 mcg/kg/min today, with plans to further go down in the next 24-48 hours if patient tolerates, ideally would want the patient off of ionotropes, if patient does not tolerate then will need to switch to milrinone so she can discharged to inpatient rehab - Plan for digoxin level on Sunday 04/01 Acute Decompensated Heart Failure with Biventricular failure Cardiogenic shock -resolved Cardiomyopathy non ischemic Ddx- Takotsubo's, tachycardia induced - LHC on 03/18 with normal coronaries, aortic pressure 72/46, LVEDP 22, LV 71/15 , no gradient - Echo OSH 03/18 - EF 10-15%, no regional wall motion abnormalities, systolic peak pressure 32 mmHg, LA + RA dilated, mild-mod TR and mild MR - IABP placed on 03/18, removed on 03/20/18 - BNP 350 - RVP positive for parainfluenza 3 - Endomyocardial biopsy (03/19/18): No evidence of myocarditis or amyloid. Myocyte vascularization seen which is a non-specific finding and possibly suggestive of ischemia. - Echocardiogram 03/19/18 Severe global LV hypokinesis. Estimated ejection fraction 10-15%. Normal LV wall thicknesses. Severe RV hypokinesis. Septal motion consistent with RV volume overload. Severe Tricuspid regurgitation - Right heart cath (03/19/18): RA 25, RV 50/13, PA 50/28, mean 35, PCWP 25, PA saturation 65%, Cardiac output (Janay) 4.5, index 2.0 - CT chest 03/25/2018 without evidence of constrictive pericarditis, patchy consolidation representing atelectasis on on left > right, trace pleural effusion and ascites -PET CT with evidence of acute mild myocarditis over inferior wall of LV - YESI 03/26/18 - EF 10 %, mildly dilated LV and RV, moderate systolic dysfunction , severely enlarged LA and mod dilated RA > Decrease Dobutamine to 1 mg/kg/min for now > decrease Bumetanide at to 2 mg qam only > Continue diamox for metabolic acidosis ( 2 doses) > Hold off on steroids as myocarditis is mild Diuretic Therapy Prior to admission dose none Given on admission Lasix gtt 5/hr Daily Dosing 03/19 Lasix gtt 20, diuril x1, 03/20 lasix gtt 20 diuril x 1, 03/21 bumetanide gtt 1/hr with bolus of 2mg and Diuril x1, bumex gtt @ 1/hr on 03/22, bumex gtt 03/23-30 @ 0.75 mg/hr, bumex 4mg BID 03/26, bumex 4 mg QAM and 2 mg QPM on 03/29, Bumex 2mg qam (03/31) Paroxysmal atrial Fibrillation - Unstable junctional bradycardia episode on 03/18 (while on amiodarone) at OSH s/p atropine x2 - NSR on admission with second episode of Junctional bradycardia to HR 50s on without hemodynamic instability - continued to be in NSR until 03/21/18 afternoon when she reverted back to Afib with rvr, - s/p amiodarone bolus and gtt and continues to be in afib - Heparin DCed with concerns for HIT (Ab came negative), started on eliquis - YESI w DCCV - back to sinus rhythm - S/P dual chamber ICD placed 03/27/2018 > Digitalis loading 03/25, continue with 250mcg / day > continue Eliquis , avoid heparin products > EP consulted - appreciate recs > Continue PO amiodarone Acute Hypoxic Respiratory Failure- extubated Pulmonary edema - continues on 1/2 -2 lpm NC - no [employer] supplemental oxygen requirement GPC bacteremia Klebsiella UTI - 1/2 BCx bottle positive for Staph and 2/2 blood cx bottles positive for Strep - streptococcus is strep mitis species, and staph looking cocci are contaminant streptococci - Klebsiella bacteriuria - ID recommended 5 days completion of abx stop date 03/24/18 - follow repeat cx till final GI Possible Shock liver vs congestive hepatopathy vs STEEN -resolved - Supportive care as above - US of abdomen03/21/18 Mild hepatomegaly. There are no usman morphologic features of cirrhosis.Mild abdominal ascites. Nutrition - swallow eval - advanced to cardiac diet Constipation- resolved - Continue bowel regimen senna and miralax BID as needed Skin Lesion - Looks superficial > Will order Groin dupplex to rule out other possible etiologies Renal Acute Kidney Injury-resolved - likely cardiorenal Hyponatremia- resolved - hypervolemic hyponatremia Hypothyrodism > Continue levothyroxine 125 mcg PO QD HTN > Not on therapy due to hypotension DM - [employer] levemir 18 units BID, metformin and Januvia - 24 hour insulin requirement 195 units, 75 % ~ 150 units, though was on steroids and had D5 infusion at the time > Will schedule for 22 units lantus QAM and QHS and 8 units novolog TID w/ meals, [facility] - [employer] simvastatin > Continue simvastatin > Lipid profile (03/19/18): total cholesterol 66, trigs 35, HDL 36, LDL 23 Fluids, Electrolytes, Nutrition: no IVF, replace prn, FLD (NPO for now until tomorrow for PET CT and YESI) Prophylaxis: No heparin products, apixaban Code: full Lines: Remove mc's today Disposition: Telemetry status on heart failure service. Plan to discharge early next week to inpatient rehab. Patient requesting a facility in [place], [place]. Will need to be on milrinone if inotrope needed Patient seen and discussed with Dr. Aguero. Shar Yousif Internal Medicine / PGY-2 Pager [phone] Subjective: Farheen Gutierres is a 68 y.o. female. Patient had no acute overnight events. Denied Chest pain, abdominal pain, changes with bowel movements or urine, weakness, dizziness, palpitations, headache and difficulty breathing. Objective: Vital Signs: Last Filed Vital Signs: 24 Hour Range BP: 126/61 (03/31 800) Temp: 36.7 C (98.1 F) (03/31 800) Pulse: 61 (03/31 800) Respirations: 15 PER MINUTE (03/31 800) SpO2: 96 % (03/31 800) O2 Delivery: Nasal Cannula (03/31 800) BP: (126-154)/(38-61) Temp: [36.4 C (97.5 F)-37.3 C (99.1 F)] Pulse: [59-83] Respirations: [15 PER MINUTE-18 PER MINUTE] SpO2: [92 %-99 %] O2 Delivery: Nasal Cannula Intake/Output Summary (Last 24 hours) at 03/31/18 1022 Last data filed at 03/31/18 0800 Gross per 24 hour Intake 240 ml Output 2150 ml Net -1910 ml PHYSICAL EXAMINATION: GENERAL: Alert, oriented, cooperative elderly female lying in bed in no apparent distress HEENT: Atraumatic/Normocephalic, cornea/conjunctiva clear, normal external ears and nose, no lymphadenopathy and thyroid enlargement Lungs: Crackles to auscultation at lung bases Heart: irregular rhythm, normal rate, distant heart sounds due to body habitus Abdomen: Soft, non tender, no organomegaly, bowel sounds present Neurologic: PERRL. Spontaneously moves extremities and responds to verbal and tactile stimuli. Extremities: No visible deformities, pulses palpable, +1 edema bilaterally in the lower extremities LABS: Recent Labs 03/28/18 1725 03/29/18 0431 03/29/18 1720 03/30/18 0350 03/31/18 0418 NA 134* 136* 136* 137 136* K 3.6 4.2 4.3 4.0 3.7 CL 93* 96* 95* 96* 96* CO2 35* 33* 34* 34* 32* GAP 6 7 7 7 8 BUN 39* 34* 35* 33* 34* CR 1.10* 1.08* 0.99 1.07* 1.06* GLU 188* 107* 205* 122* 195* CA 9.6 9.6 9.9 9.9 9.9 MG 2.0 2.1 2.1 2.0 1.9 Recent Labs 03/29/18 0430 03/30/18 0349 03/31/18 0418 WBC 9.8 10.9 10.8 HGB 12.1 12.0 11.9* HCT 36.5 36.4 35.7* PLTCT 134* 143* 141* Estimated Creatinine Clearance: 61.2 mL/min (A) (based on SCr of 1.06 mg/dL (H)) . Vitals: 03/29/18 0550 03/30/18 0401 03/31/18 0449 Weight: 94.7 kg (208 lb 12.8 oz) 96 kg (211 lb 10.3 oz) 96.7 kg (213 lb 3 oz) No results for input(s): PHART, PO2ART in the last 72 hours. Invalid input(s): PC02A MEDS acetaZOLAMIDE 500 mg Intravenous Q8H amiodarone 400 mg Oral BID apixaban 5 mg Oral BID [START ON 04/01/2018] bumetanide 2 mg Oral QDAY digoxin 125 mcg Intravenous QDAY insulin aspart U-100 0-14 Units Subcutaneous ACHS insulin aspart U-100 8 Units Subcutaneous TID w/ meals insulin glargine 22 Units Subcutaneous BID levothyroxine 125 mcg Per NG tube QDAY(07) lidocaine 1 patch Topical QDAY magnesium sulfate 1 g Intravenous ONCE melatonin 3 mg Oral QHS nystatin Topical BID oxyCODONE 5 mg Oral ONCE PARoxetine 40 mg Per NG tube QDAY potassium chloride SR 40 mEq Oral QDAY IV MEDS DOBUTamine (DOBUTREX) 1,000 mg in sodium chloride 0.9% (NS) 250 mL IV drip ( std conc) Prnacetaminophen Q4H PRN, aluminum/magnesium hydroxide Q4H PRN, carboxymethylcellulose PRN, lidocaine PF PRN Associated attestation - Philippe Aguero MD - 03/31/2018 10:31 AM CDT Teaching Physician Attestation: I have personally interviewed and examined the patient, have reviewed the documentation, and agree with the assessment and plan of the resident. Please see my separate progress note from earlier today for further details on this patient's care. Philippe Aguero MD * Prisca Arreguin, RN - 03/31/2018 12:06 AM CDT Formatting of this note may be different from the original. This note also relates to the following rows which could not be included: Pulse - Cannot attach notes to unvalidated device data PVC / Minute - Cannot attach notes to unvalidated device data 03/30/18 2352 03/30/18 2359 03/31/18 0000 Vitals Temp -- 36.8 C (98.2 F) -- Temperature Source -- Oral -- Pulse -- 59 -- Respirations -- 18 PER MINUTE -- SpO2 -- 93 % -- O2 Delivery -- NC -- O2 Liter Flow -- 1 lpm -- BP -- 141/48 -- Mean NBP (Calculated) -- 79 MM HG -- BP Source -- Arm, Right -- BP Patient Position -- Lying Left Side -- Heart Rhythm -- -- Regular Monitored Rhythm VT (6 beat run Vtach, paced out of it) -- Paced - Atrial* Pt had 6 beat of V tach which she paced out of. VSS, asymptomatic. Cardiology text paged (tracking #[id number]) with vitals and above info. * Naomi Astudillo - 03/30/2018 6:44 PM CDT Formatting of this note may be different from the original. Heart Failure Nursing Progress Note Admission Date: 03/18/2018 LOS: 12 days Admission Weight: 116 kg (255 lb 11.7 oz) Most recent weights (inpatient): Vitals: 03/27/18 0400 03/29/18 0550 03/30/18 0401 Weight: 95.5 kg (210 lb 8.6 oz) 94.7 kg (208 lb 12.8 oz) 96 kg (211 lb 10.3 oz) Weight change from previous day: +3lbs Fluid restriction ordered: no Intake/Output Summary: (Last 24 hours) Intake/Output Summary (Last 24 hours) at 03/30/18 1845 Last data filed at 03/30/18 1606 Gross per 24 hour Intake 640 ml Output 2000 ml Net -1360 ml Is patient incontinent No Anticipated discharge date: TBD Discharge goals: increase ADLs Daily Assessment of Patient Stated Goals: Short Term Goal Identified by patient (Short Term=during hospitalization): * Naomi Astudillo - 03/30/2018 6:39 PM CDT Pt complained of 9/10 pain at R groin access site. No numbness or tingling; no increased swelling or bruising. This RN spoke with MD. TAMI Gomez to put new orders for pain. * Shar Yousif MBBS - 03/30/2018 1:11 PM CDT Formatting of this note may be different from the original. Progress Note Name: Farheen Gutierres Admission Date: 03/18/2018 Admission Diagnosis: cardiogenic shock Cardiogenic shock (HCC) Principal Problem: Cardiogenic shock (HCC) Active Problems: RYAN (acute kidney injury) (HCC) HLD (hyperlipidemia) Type II diabetes mellitus (HCC) Essential hypertension Hypothyroidism PAF (paroxysmal atrial fibrillation) (HCC) Junctional bradycardia Morbid obesity with BMI of 45.0-49.9, adult (HCC) Nonischemic cardiomyopathy (HCC) Acute systolic heart failure (HCC) Pulmonary edema Acute respiratory failure with hypoxia (HCC) Shock liver Hyponatremia Infection due to parainfluenza virus 3 Cardiorenal syndrome Assessment/Plan: Farheen Gutierres is a 68 y.o. female with a history of Diabetes mellitus on insulin, Hypertension, Hyperlipidemia, Hypothyroidism, admitted for management of cardiogenic shock and acute decompensated Heart failure Changes Today: - Decrease bumetanide: 2 mg QAM and 2 mg QPM - insulin: Add back 18 U insulin glargine QAM and keep 18 units QHS and 6 U insulin aspart TID AC - Will keep dobutamine at 2 mcg/kg/min today and plan to decrease tomorrow on 1 mcg/kg/min. On Sunday, we will be better able to prognosticate if patient will be discharged on dobutamine - Plan for digoxin level on Sunday 04/01 Acute Decompensated Heart Failure with Biventricular failure Cardiogenic shock -resolved Cardiomyopathy non ischemic Ddx- Takotsubo's, tachycardia induced - LHC on 03/18 with normal coronaries, aortic pressure 72/46, LVEDP 22, LV 71/15 , no gradient - Echo OSH 03/18 - EF 10-15%, no regional wall motion abnormalities, systolic peak pressure 32 mmHg, LA + RA dilated, mild-mod TR and mild MR - IABP placed on 03/18, removed on 4/25/18 - BNP 350 - RVP positive for parainfluenza 3 - Endomyocardial biopsy (03/19/18): No evidence of myocarditis or amyloid. Myocyte vascularization seen which is a non-specific finding and possibly suggestive of ischemia. - Echocardiogram 03/19/18 Severe global LV hypokinesis. Estimated ejection fraction 10-15%. Normal LV wall thicknesses. Severe RV hypokinesis. Septal motion consistent with RV volume overload. Severe Tricuspid regurgitation - Right heart cath (03/19/18): RA 25, RV 50/13, PA 50/28, mean 35, PCWP 25, PA saturation 65%, Cardiac output (Janay) 4.5, index 2.0 - CT chest 03/25/2018 without evidence of constrictive pericarditis, patchy consolidation representing atelectasis on on left > right, trace pleural effusion and ascites -PET CT with evidence of acute mild myocarditis over inferior wall of LV - YESI 03/26/18 - EF 10 %, mildly dilated LV and RV, moderate systolic dysfunction , severely enlarged LA and mod dilated RA > continue Dobutamine @ 2 mg/kg/min for now > decrease Bumetanide at 4mg QAM and 2 mg QPM, Net goal is even > Continue diamox for metabolic acidosis > Hold off on steroids as myocarditis is mild > Continue dobutamine at 2 mcg/kg/min; plan to taper to 1 mcg/kg/min tomorrow Diuretic Therapy Prior to admission dose none Given on admission Lasix gtt 5/hr Daily Dosing 03/19 Lasix gtt 20, diuril x1, 03/20 lasix gtt 20 diuril x 1, 03/21 bumetanide gtt 1/hr with bolus of 2mg and Diuril x1, bumex gtt @ 1/hr on 03/22, bumex gtt 03/23-30 @ 0.75 mg/hr, bumex 4mg BID 03/26, bumex 4 mg QAM and 2 mg QPM on 03/29 Paroxysmal atrial Fibrillation - Unstable junctional bradycardia episode on 03/18 (while on amiodarone) at OSH s/p atropine x2 - NSR on admission with second episode of Junctional bradycardia to HR 50s on without hemodynamic instability - continued to be in NSR until 03/21/18 afternoon when she reverted back to Afib with rvr, - s/p amiodarone bolus and gtt and continues to be in afib - Heparin DCed with concerns for HIT (Ab came negative), started on eliquis - YESI w DCCV - back to sinus rhythm - S/P dual chamber ICD placed 03/27/2018 > Digitalis loading 03/25, continue with 250mcg / day > continue Eliquis , avoid heparin products > EP consulted - appreciate recs > Continue PO amiodarone Acute Hypoxic Respiratory Failure- extubated Pulmonary edema - continues on 11/27 -2 lpm NC - no [employer] supplemental oxygen requirement GPC bacteremia Klebsiella UTI - 11/27 BCx bottle positive for Staph and 12/28 blood cx bottles positive for Strep - streptococcus is strep mitis species, and staph looking cocci are contaminant streptococci - Klebsiella bacteriuria - ID recommended 5 days completion of abx stop date 03/24/18 - follow repeat cx till final GI Possible Shock liver vs congestive hepatopathy vs STEEN -resolved - Supportive care as above - US of abdomen03/21/18 Mild hepatomegaly. There are no usman morphologic features of cirrhosis.Mild abdominal ascites. Nutrition - swallow eval - advanced to cardiac diet Constipation- resolved - Continue bowel regimen senna and miralax BID as needed Renal Acute Kidney Injury-resolved - likely cardiorenal Hyponatremia- resolved - hypervolemic hyponatremia Hypothyrodism > Continue levothyroxine 125 mcg PO QD HTN > Not on therapy due to hypotension DM - [employer] levemir 18 units BID, metformin and Januvia - 24 hour insulin requirement 195 units, 75 % ~ 150 units, though was on steroids and had D5 infusion at the time > Will schedule for 18 units lantus QHS and 6 units novolog TID w/ meals, [facility] HLD - [employer] simvastatin > Continue simvastatin > Lipid profile (03/19/18): total cholesterol 66, trigs 35, HDL 36, LDL 23 Fluids, Electrolytes, Nutrition: no IVF, replace prn, FLD (NPO for now until tomorrow for PET CT and YESI) Prophylaxis: No heparin products, apixaban Code: full Lines:arterial line, OG tube, CVC, rectal tube Disposition: Telemetry status on heart failure service. Plan to discharge early next week to inpatient rehab. Patient requesting a facility in [place], [place]. Patient seen and discussed with Dr. Aguero. Shar Yousif Internal Medicine / PGY-2 Pager [phone] Subjective: Farheen Gutierres is a 68 y.o. female. Patient had no acute overnight events. Denied Chest pain, abdominal pain, changes with bowel movements or urine, weakness, dizziness, palpitations, headache and difficulty breathing. Objective: Vital Signs: Last Filed Vital Signs: 24 Hour Range BP: 140/57 (03/30 1054) Temp: 36.9 C (98.4 F) (03/30 1054) Pulse: 65 (03/30 1054) Respirations: 18 PER MINUTE (03/30 1054) SpO2: 98 % (03/30 1054) O2 Delivery: Nasal Cannula (03/30 1054) BP: (137-149)/(46-58) Temp: [36.6 C (97.8 F)-37 C (98.6 F)] Pulse: [65-74] Respirations: [17 PER MINUTE-18 PER MINUTE] SpO2: [94 %-98 %] O2 Delivery: Nasal Cannula Intake/Output Summary (Last 24 hours) at 03/30/18 1311 Last data filed at 03/30/18 1054 Gross per 24 hour Intake 840 ml Output 2150 ml Net -1310 ml PHYSICAL EXAMINATION: GENERAL: Alert, oriented, cooperative elderly female lying in bed in no apparent distress HEENT: Atraumatic/Normocephalic, cornea/conjunctiva clear, normal external ears and nose, no lymphadenopathy and thyroid enlargement Lungs: Crackles to auscultation at lung bases Heart: irregular rhythm, normal rate, distant heart sounds due to body habitus Abdomen: Soft, non tender, no organomegaly, bowel sounds present Neurologic: PERRL. Spontaneously moves extremities and responds to verbal and tactile stimuli. Extremities: No visible deformities, pulses palpable, +1 edema bilaterally in the lower extremities LABS: Recent Labs 03/27/18 1815 03/28/18 0404 03/28/18 1725 03/29/18 0431 03/29/18 1720 03/30/18 0350 NA 133* 136* 134* 136* 136* 137 K 3.8 4.2 3.6 4.2 4.3 4.0 CL 88* 93* 93* 96* 95* 96* CO2 36* 34* 35* 33* 34* 34* GAP 9 9 6 7 7 7 BUN 41* 41* 39* 34* 35* 33* CR 1.23* 1.04* 1.10* 1.08* 0.99 1.07* GLU 349* 75 188* 107* 205* 122* CA 9.5 9.7 9.6 9.6 9.9 9.9 MG 2.0 1.9 2.0 2.1 2.1 2.0 Recent Labs 03/28/18 0404 03/29/18 0430 03/30/18 0349 WBC 8.5 9.8 10.9 HGB 11.4* 12.1 12.0 HCT 35.4* 36.5 36.4 PLTCT 132* 134* 143* Estimated Creatinine Clearance: 60.4 mL/min (A) (based on SCr of 1.07 mg/dL (H)) . Vitals: 03/27/18 0400 03/29/18 0550 03/30/18 0401 Weight: 95.5 kg (210 lb 8.6 oz) 94.7 kg (208 lb 12.8 oz) 96 kg (211 lb 10.3 oz) No results for input(s): PHART, PO2ART in the last 72 hours. Invalid input(s): PC02A MEDS amiodarone 400 mg Oral BID apixaban 5 mg Oral BID bumetanide 2 mg Oral BID(9-17) digoxin 125 mcg Intravenous QDAY insulin aspart U-100 0-14 Units Subcutaneous ACHS insulin aspart U-100 6 Units Subcutaneous TID w/ meals insulin glargine 18 Units Subcutaneous BID levothyroxine 125 mcg Per NG tube QDAY(07) melatonin 3 mg Oral QHS nystatin Topical BID PARoxetine 40 mg Per NG tube QDAY potassium chloride SR 40 mEq Oral QDAY IV MEDS DOBUTamine (DOBUTREX) 1,000 mg in sodium chloride 0.9% (NS) 250 mL IV drip ( std conc) 2 mcg/kg/min (03/29/18 0019) Prnacetaminophen Q4H PRN, aluminum/magnesium hydroxide Q4H PRN, carboxymethylcellulose PRN, lidocaine PF PRN Associated attestation - Philippe Aguero MD - 03/30/2018 1:16 PM CDT Teaching Physician Attestation: I have personally interviewed and examined the patient, have reviewed the documentation, and agree with the assessment and plan of the resident. Please see my separate progress note from earlier today for further details on this patient's care. Philippe Aguero MD * Philippe Aguero MD - 03/30/2018 12:43 PM CDT Teaching Physician Attestation: I have personally interviewed and examined the patient, have reviewed the documentation, and agree with the assessment and plan of the resident. She remained stable. She is not having any chest pain or shortness of breath. She continues with good diuresis. Her hemoglobin is 12 her platelet count continues to improve at 143,000 white blood cell count 10.9 creatinine is good at 1.07 potassium is 4.0 she continues with good urine output. Were going to continue with her dobutamine. If things remain stable will reduce that down to 1 mcg/kg/min tomorrow. Were targeting transfer/discharge to the inpatient rehab in [facility] the [facility]. She needs ongoing nutritional support and physical therapy. Philippe Aguero MD * Juan Ramon Ríos, TREVOR - 03/30/2018 6:32 AM CDT Formatting of this note may be different from the original. Heart Failure Nursing Progress Note Admission Date: 03/18/2018 LOS: 12 days Admission Weight: 116 kg (255 lb 11.7 oz) Most recent weights (inpatient): Vitals: 03/27/18 0400 03/29/18 0550 03/30/18 0401 Weight: 95.5 kg (210 lb 8.6 oz) 94.7 kg (208 lb 12.8 oz) 96 kg (211 lb 10.3 oz) Weight change from previous day: + 1.3kg Fluid restriction ordered: none Intake/Output Summary: (Last 24 hours) Intake/Output Summary (Last 24 hours) at 03/30/18 0632 Last data filed at 03/30/18 0411 Gross per 24 hour Intake 600 ml Output 2350 ml Net -1750 ml Is patient incontinent No Anticipated discharge date: 04/03/18 Discharge goals: Daily Assessment of Patient Stated Goals: Short Term Goal Identified by patient (Short Term=during hospitalization): * Dagmar Sanchez - 03/29/2018 1:35 PM CDT OCCUPATIONAL THERAPY PROGRESS NOTE Patient Name: Farheen Gutierres Room/Bed: [facility] Admitting Diagnosis: cardiogenic shock Cardiogenic shock (HCC) Mobility Progressive Mobility Level: Sit on edge of bed Distance Walked (feet): 5 ft Level of Assistance: Assist X1 Assistive Device: Hand Held Time Tolerated: 0-10 minutes Activity Limited By: Dizziness Subjective Precautions: Falls;Isolation;O2 Requirement;Pacemaker Precautions Pain / Complaints: Patient agrees to participate in therapy Comments: Patient supine in bed at start of session. Left sitting EOB with spouse present and RN notified of patient status. Objective Psychosocial Status: Willing and Cooperative to Participate Persons Present: Spouse Home Living Type of Home: House ADL's Where Assessed: Edge of Bed Eating Assist: Stand By Assist Eating Deficits: Setup;Increased Time to Complete Functional Transfer Assist: Moderate Assist Comment: Patient required moderate assist for supine to sit transfer. Report of dizziness while first sitting EOB and then improved. Patient sat independently and able to feed herself. Cognition Overall Cognitive Status: WFL to Adequately Complete Self Care Tasks Safely Education Persons Educated: Patient/Family Teaching Methods: Verbal Instruction Patient Response: Verbalized Understanding Topics: Role of OT, Goals for Therapy Goal Formulation: With Patient Comments: Educated patient on activity throughout the day and encouraged patient to sit in chair for dinner. Patient and spouse verbalized understanding. Assessment Assessment: Decreased ADL Status;Decreased Endurance;Decreased Self-Care Trans; Decreased High-Level ADLs Goal Formulation: Patient AM-PAC 6 Clicks Daily Activity Inpatient Putting on and taking off regular lower body clothes?: A Lot Bathing (Including washing, rinsing, drying): A Lot Toileting, which includes using toilet, bedpan, or urinal: A Lot Putting on and taking off regular upper body clothing: A Lot Taking care of personal grooming such as brushing teeth: A Little Eating meals?: None Daily Activity Raw Score: 15 Standardized (t-scale) score: 34.69 CMS 0-100% Score: 56.46 CMS G Code Modifier: CK Plan OT Frequency: 5x/week OT Plan for Next Visit: Progress transfers, ambulation and ADL endurance. ADL Goals Patient Will Perform Grooming: Standing at Sink;w/ Stand By Assist Patient Will Perform Toileting: w/ Minimum Assist Functional Transfer Goals Pt Will Transfer To Bedside Commode: w/ Minimum Assist OT Discharge Recommendations OT Discharge Recommendations: Inpatient Setting, To address deficits, maximize function and improve safety. Equipment Recommendations: Too early to be determined Recommend ongoing assistance for: In and out of house, Transfers, Bed mobility, Stairs, Ambulation Therapist: Dagmar Hernandez, OTR/L [id number] Date: 03/29/2018 * Tomasa Costa, PT - 03/29/2018 12:42 PM CDT PHYSICAL THERAPY PROGRESS NOTE MOBILITY: Progressive Mobility Level: Walk in room Distance Walked (feet): 5 ft Level of Assistance: Assist X2 Time Tolerated: 1-2 hours SUBJECTIVE: Significant hospital events: Reason for admission: cardiogenic shock and acute decompensated heart failure; IABP removed (03/19) ICD placed (03/27) Mental / Cognitive Status: Alert;Cooperative Persons Present: RehabTechnician;Spouse Pain: Patient complains of pain Pain Location: Left;Shoulder Precautions: Pacemaker Precautions Ambulation Assist: Independent Mobility in Community without Device Patient Owned Equipment: None Home Situation: Lives Alone Type of Home: House Entry Stairs: 1-2 Stairs In-Home Stairs: Able to Live on One Level The patient notes likely plan to discharge SNF. BED MOBILITY/TRANSFERS: Bed Mobility: Supine to Sit: Minimal Assist Transfer Type: Sit to Stand Transfer: Assistance Level: To/From;Bed;Minimal Assist Transfer: Assistive Device: Roller Walker GAIT: Gait Distance: 5 feet Gait: Assistance Level: Minimal Assist Gait: Assistive Device: Roller Walker Gait: Descriptors: Pace: Slow;Decreased foot clearance LLE;Decreased foot clearance RLE ASSESSMENT/PROGRESS: Assessment/Progress Assessment/Progress: Should Improve w/ Continued PT AM-PAC 6 Clicks Basic Mobility Inpatient Turning from your back to your side while in a flat bed without using bed rails : A Little Moving from lying on your back to sitting on the side of a flatbed without using bedrails : A Little Moving to and from a bed to a chair (including a wheelchair): A Little Standing up from a chair using your arms (e.g. wheelchair, or bedside chair): A Little To walk in hospital room: A Lot Climbing 3-5 steps with a railing: A Lot Raw Score: 16 Standardized (T-scale) Score: 38.32 Basic Mobility CMS 0-100%: 47.12 CMS G Code Modifier for Basic Mobility: CK Goal Formulation: With Patient Time For Goal Achievement: 5 days, To, 7 days Pt Will Go Supine To/From Sit: Independently Pt Will Transfer Bed/Chair: Independently Pt Will Ambulate: Greater than 200 Feet, w/ No Device, Independently Pt Will Go Up / Down Stairs: 1-2 Stairs, Independently PLAN: Plan Frequency: 5 Days per Week RECOMMENDATIONS: PT Discharge Recommendations: Inpatient Setting PT Plan for Next Visit: Continue to encourage ambulation by increasing distances Therapist: Tomasa Costa, PT Date: 03/29/2018 * Philippe Aguero MD - 03/29/2018 9:54 AM CDT Teaching Physician Attestation: I have personally interviewed and examined the patient, have reviewed the documentation, and agree with the assessment and plan of the resident. She continues to make progress. She is not having any chest pain or shortness of breath. She is getting breathing treatments and has some bronchitis and atelectasis. Her oxygenation remains good. She remains on dobutamine 2 mcg/kg/ min. We may wean that some over the weekend. We need to try and make plans for discharge to the halfway facility in [facility]. She remains in regular rhythm. Hemoglobin is 12.1 platelet count 134,000 white blood cell count 9.8 creatinine 1.08 potassium is 4.2. We will going to reduce her afternoon Bumex to 2 mg by mouth. She will continue with physical therapy and rehab. She is really quite weak and debilitated. I think she will benefit from an inpatient rehab stay. Philippe Aguero MD * Wayne Rivera MD - 03/29/2018 9:49 AM CDT Formatting of this note may be different from the original. Progress Note Name: Farheen Gutierres Admission Date: 03/18/2018 Admission Diagnosis: cardiogenic shock Cardiogenic shock (HCC) Principal Problem: Cardiogenic shock (HCC) Active Problems: RYAN (acute kidney injury) (HCC) HLD (hyperlipidemia) Type II diabetes mellitus (HCC) Essential hypertension Hypothyroidism PAF (paroxysmal atrial fibrillation) (HCC) Junctional bradycardia Morbid obesity with BMI of 45.0-49.9, adult (HCC) Nonischemic cardiomyopathy (HCC) Acute systolic heart failure (HCC) Pulmonary edema Acute respiratory failure with hypoxia (HCC) Shock liver Hyponatremia Infection due to parainfluenza virus 3 Cardiorenal syndrome Assessment/Plan: Farheen Gutierres is a 68 y.o. female with a history of Diabetes mellitus on insulin, Hypertension, Hyperlipidemia, Hypothyroidism, admitted for management of cardiogenic shock and acute decompensated Heart failure Changes Today: - Decrease bumetanide: 4 mg QAM and 2 mg QPM - Decrease insulin: 18 U insulin glargine QHS and 6 U insulin aspart TID AC - Will keep dobutamine at 2 mcg/kg/min today and plan to decrease tomorrow on 1 mcg/kg/min. On Sunday, we will be better able to prognosticate if patient will be discharged on dobutamine - Plan for digoxin level on Sunday 04/01 Acute Decompensated Heart Failure with Biventricular failure Cardiogenic shock -resolved Cardiomyopathy non ischemic Ddx- Takotsubo's, tachycardia induced - LHC on 03/18 with normal coronaries, aortic pressure 72/46, LVEDP 22, LV 71/15 , no gradient - Echo OSH 03/18 - EF 10-15%, no regional wall motion abnormalities, systolic peak pressure 32 mmHg, LA + RA dilated, mild-mod TR and mild MR - IABP placed on 03/18, removed on 03/20/18 - BNP 350 - RVP positive for parainfluenza 3 - Endomyocardial biopsy (03/19/18): No evidence of myocarditis or amyloid. Myocyte vascularization seen which is a non-specific finding and possibly suggestive of ischemia. - Echocardiogram 03/19/18 Severe global LV hypokinesis. Estimated ejection fraction 10-15%. Normal LV wall thicknesses. Severe RV hypokinesis. Septal motion consistent with RV volume overload. Severe Tricuspid regurgitation - Right heart cath (03/19/18): RA 25, RV 50/13, PA 50/28, mean 35, PCWP 25, PA saturation 65%, Cardiac output (Janay) 4.5, index 2.0 - CT chest 03/25/2018 without evidence of constrictive pericarditis, patchy consolidation representing atelectasis on on left > right, trace pleural effusion and ascites -PET CT with evidence of acute mild myocarditis over inferior wall of LV - YESI 03/26/18 - EF 10 %, mildly dilated LV and RV, moderate systolic dysfunction , severely enlarged LA and mod dilated RA > continue Dobutamine @ 2 mg/kg/min for now > Continue Bumetanide at 4mg QAM and 2 mg QPM, Net goal is -1L > Continue diamox for metabolic acidosis > Hold off on steroids as myocarditis is mild > Continue dobutamine at 2 mcg/kg/min; plan to taper to 1 mcg/kg/min tomorrow Diuretic Therapy Prior to admission dose none Given on admission Lasix gtt 5/hr Daily Dosing 03/19 Lasix gtt 20, diuril x1, 03/20 lasix gtt 20 diuril x 1, 03/21 bumetanide gtt 1/hr with bolus of 2mg and Diuril x1, bumex gtt @ 1/hr on 03/22, bumex gtt 03/23-30 @ 0.75 mg/hr, bumex 4mg BID 03/26, bumex 4 mg QAM and 2 mg QPM on 03/29 Paroxysmal atrial Fibrillation - Unstable junctional bradycardia episode on 03/18 (while on amiodarone) at OSH s/p atropine x2 - NSR on admission with second episode of Junctional bradycardia to HR 50s on without hemodynamic instability - continued to be in NSR until 03/21/18 afternoon when she reverted back to Afib with rvr, - s/p amiodarone bolus and gtt and continues to be in afib - Heparin DCed with concerns for HIT (Ab came negative), started on eliquis - YESI w DCCV - back to sinus rhythm - S/P dual chamber ICD placed 03/27/2018 > Digitalis loading 03/25, continue with 250mcg / day > continue Eliquis , avoid heparin products > EP consulted - appreciate recs > Continue PO amiodarone Acute Hypoxic Respiratory Failure- extubated Pulmonary edema - continues on 11/27 -2 lpm NC - no GRIP ASSEMBLER supplemental oxygen requirement GPC bacteremia Klebsiella UTI - 11/27 BCx bottle positive for Staph and 2/2 blood cx bottles positive for Strep - streptococcus is strep mitis species, and staph looking cocci are contaminant streptococci - Klebsiella bacteriuria - ID recommended 5 days completion of abx stop date 03/24/18 - follow repeat cx till final GI Possible Shock liver vs congestive hepatopathy vs STEEN -resolved - Supportive care as above - US of abdomen03/21/18 Mild hepatomegaly. There are no usman morphologic features of cirrhosis.Mild abdominal ascites. Nutrition - swallow eval - advanced to cardiac diet Constipation- resolved - Continue bowel regimen senna and miralax BID as needed Renal Acute Kidney Injury-resolved - likely cardiorenal Hyponatremia- resolved - hypervolemic hyponatremia Hypothyrodism > Continue levothyroxine 125 mcg PO QD HTN > Not on therapy due to hypotension DM - GRIP ASSEMBLER levemir 18 units BID, metformin and Januvia - 24 hour insulin requirement 195 units, 75 % ~ 150 units, though was on steroids and had D5 infusion at the time > Will schedule for 18 units lantus QHS and 6 units novolog TID w/ meals, HDCF HLD - GRIP ASSEMBLER simvastatin > Continue simvastatin > Lipid profile (03/19/18): total cholesterol 66, trigs 35, HDL 36, LDL 23 Fluids, Electrolytes, Nutrition: no IVF, replace prn, FLD (NPO for now until tomorrow for PET CT and YESI) Prophylaxis: No heparin products, apixaban Code: full Lines:arterial line, OG tube, CVC, rectal tube Disposition: Telemetry status on heart failure service. Plan to discharge early next week to inpatient rehab. Patient requesting a facility in [place], [place]. Patient seen and discussed with Dr. Aguero. Wayne Rivera M.D. Internal Medicine/Psychiatry PGY-1 Pager: [phone] Subjective: Farheen Gutierres is a 68 y.o. female. Patient had no acute overnight events. She was moved to telemetry floor without problem. This morning, she reported feeling well, though is still weak. She denied chest pain, palpitations, shortness of breath, headache, lightheadedness, dizziness, constipation, diarrhea, abdominal pain. She feels she is tolerating her medications without concerns. She has had some fears associated with ambulating as she feels she may fall. She was encouraged to continue to work with PT/OT and build up her strength and confidence. She agreed. ROS: Denies headache, fever, chills, nausea, vomiting, chest pain, shortness of breath, abdominal pain, constipation, diarrhea, changes in urination. Objective: Vital Signs: Last Filed Vital Signs: 24 Hour Range BP: 141/49 (03/28 1934) Temp: 36.2 C (97.2 F) (03/28 1934) Pulse: 78 (03/28 1934) Respirations: 14 PER MINUTE (03/28 1934) SpO2: 93 % (03/28 1934) O2 Delivery: Nasal Cannula (03/28 1934) SpO2 Pulse: 71 (03/28 0800) BP: (112-153)/(44-89) Temp: [36.2 C (97.2 F)-36.7 C (98.1 F)] Pulse: [60-78] Respirations: [8 PER MINUTE-15 PER MINUTE] SpO2: [93 %-98 %] O2 Delivery: Nasal Cannula Intake/Output Summary (Last 24 hours) at 03/28/182130 Last data filed at 03/28/181931 Gross per 24 hour Intake 687 ml Output 2050 ml Net -1363 ml PHYSICAL EXAMINATION: GENERAL: Alert, oriented, cooperative elderly female lying in bed in no apparent distress HEENT: Atraumatic/Normocephalic, cornea/conjunctiva clear, normal external ears and nose, no lymphadenopathy and thyroid enlargement Lungs: Crackles to auscultation at lung bases Heart: irregular rhythm, normal rate, distant heart sounds due to body habitus Abdomen: Soft, non tender, no organomegaly, bowel sounds present Neurologic: PERRL. Spontaneously moves extremities and responds to verbal and tactile stimuli. Extremities: No visible deformities, pulses palpable, +1 edema bilaterally in the lower extremities LABS: Recent Labs 03/26/18 0430 03/26/18 1700 03/27/18 0515 03/27/18 1815 03/28/18 0404 03/28/18 1725 NA 139 137 137 133* 136* 134* K 3.9 4.5 3.7 3.8 4.2 3.6 CL 90* 91* 91* 88* 93* 93* CO2 42* 42* 37* 36* 34* 35* GAP 7 4 9 9 9 6 BUN 38* 41* 45* 41* 41* 39* CR 0.98 1.13* 1.11* 1.23* 1.04* 1.10* GLU 132* 144* 120* 349* 75 188* CA 10.0 9.7 10.0 9.5 9.7 9.6 ALBUMIN 3.6 3.7 3.6 -- -- -- MG 2.1 2.1 2.0 2.0 1.9 2.0 Recent Labs 03/26/18 0430 03/26/18 1700 03/27/18 0515 03/28/18 0404 WBC 9.4 -- 8.6 8.5 HGB 12.8 -- 11.9* 11.4* HCT 40.5 -- 36.5 35.4* PLTCT 108* -- 117* 132* INR -- -- 1.3* -- AST 20 31 24 -- ALT 39 41 41 -- ALKPHOS 52 53 55 -- Estimated Creatinine Clearance: 58.6 mL/min (A) (based on SCr of 1.1 mg/dL (H)). Vitals: 03/26/18 0600 03/26/18 1420 03/27/18 0400 Weight: 98.5 kg (217 lb 2.5 oz) 98.5 kg (217 lb 2.5 oz) 95.5 kg (210 lb 8.6 oz) No results for input(s): PHART, PO2ART in the last 72 hours. Invalid input(s): PC02A MEDS amiodarone 400 mg Oral BID apixaban 5 mg Oral BID bumetanide 4 mg Oral BID(9-17) digoxin 125 mcg Intravenous QDAY insulin aspart U-100 0-14 Units Subcutaneous ACHS insulin aspart U-100 18 Units Subcutaneous TID w/ meals insulin glargine 35 Units Subcutaneous BID levothyroxine 125 mcg Per NG tube QDAY(07) melatonin 3 mg Oral QHS nystatin Topical BID PARoxetine 40 mg Per NG tube QDAY potassium chloride SR 40 mEq Oral QDAY potassium chloride SR 60 mEq Oral ONCE IV MEDS DOBUTamine (DOBUTREX) 1,000 mg in sodium chloride 0.9% (NS) 250 mL IV drip ( std conc) 2 mcg/kg/min (03/28/18 1917) propofol (DIPRIVAN) 10 mg/mL IV infusion Stopped (03/26/18 1435) sodium chloride 0.9 % infusion Stopped (03/27/18 1315) Prnacetaminophen Q4H PRN, aluminum/magnesium hydroxide Q4H PRN, carboxymethylcellulose PRN, lidocaine PF PRN, pancrelipase 20,000 Units/ sodium bicarbonate 650 mg(#) PRN (Combination Window Installer from Rx) Associated attestation - Philippe Aguero MD - 03/29/2018 1:21 PM CDT Teaching Physician Attestation: I have personally interviewed and examined the patient, have reviewed the documentation, and agree with the assessment and plan of the resident. Please see my separate progress note from earlier today for further details on this patient's care. Philippe Aguero MD * Shar Yousif MBBS - 03/28/2018 4:50 PM CDT Formatting of this note may be different from the original. Progress Note Name: Farheen Gutierres Admission Date: 03/18/2018 Admission Diagnosis: cardiogenic shock Cardiogenic shock (HCC) Principal Problem: Cardiogenic shock (HCC) Active Problems: RYAN (acute kidney injury) (HCC) HLD (hyperlipidemia) Type II diabetes mellitus (HCC) Essential hypertension Hypothyroidism PAF (paroxysmal atrial fibrillation) (HCC) Junctional bradycardia Morbid obesity with BMI of 45.0-49.9, adult (HCC) Nonischemic cardiomyopathy (HCC) Acute systolic heart failure (HCC) Pulmonary edema Acute respiratory failure with hypoxia (HCC) Shock liver Hyponatremia Infection due to parainfluenza virus 3 Cardiorenal syndrome Assessment/Plan: Farheen Gutierres is a 68 y.o. female with a history of Diabetes mellitus on insulin, Hypertension, Hyperlipidemia, Hypothyroidism, admitted for management of cardiogenic shock and acute decompensated Heart failure Acute Decompensated Heart Failure with Biventricular failure Cardiogenic shock -resolved Cardiomyopathy non ischemic Ddx- Takotsubo's, tachycardia induced - LHC on 03/18 with normal coronaries, aortic pressure 72/46, LVEDP 22, LV 71/15 , no gradient - Echo OSH 03/18 - EF 10-15%, no regional wall motion abnormalities, systolic peak pressure 32 mmHg, LA + RA dilated, mild-mod TR and mild MR - IABP placed on 03/18, removed on 03/20/18 - BNP 350 - RVP positive for parainfluenza 3 - Endomyocardial biopsy (03/19/18): No evidence of myocarditis or amyloid. Myocyte vascularization seen which is a non-specific finding and possibly suggestive of ischemia. - Echocardiogram 03/19/18 Severe global LV hypokinesis. Estimated ejection fraction 10-15%. Normal LV wall thicknesses. Severe RV hypokinesis. Septal motion consistent with RV volume overload. Severe Tricuspid regurgitation - Right heart cath (03/19/18): RA 25, RV 50/13, PA 50/28, mean 35, PCWP 25, PA saturation 65%, Cardiac output (Janay) 4.5, index 2.0 - CT chest 03/25/2018 without evidence of constrictive pericarditis, patchy consolidation representing atelectasis on on left > right, trace pleural effusion and ascites -PET CT with evidence of acute mild myocarditis over inferior wall of LV - YESI 03/26/18 - EF 10 %, mildly dilated LV and RV, moderate systolic dysfunction , severely enlarged LA and mod dilated RA > continue Dobutamine @ 3 mg/kg/min for now > Continue Bumetanide at 4mg BID, Net goal is -1L, decrease to 4mg in am and 2mg in evening if continues the trend > Continue diamox for metabolic acidosis > Hold off on steroids as mild myocarditis > COntinue dobutamine at 3 mcg/kg/min, will slowly taper this Diuretic Therapy Prior to admission dose none Given on admission Lasix gtt 5/hr Daily Dosing 03/19 Lasix gtt 20, diuril x1, 03/20 lasix gtt 20 diuril x 1, 03/21 bumetanide gtt 1/hr with bolus of 2mg and Diuril x1, bumex gtt @ 1/hr on 03/22, bumex gtt 03/23-30 @ 0.75 mg/hr, bumex 4mg BID 03/26 Paroxysmal atrial Fibrillation - Unstable junctional bradycardia episode on 03/18 (while on amiodarone) at OSH s/p atropine x2 - NSR on admission with second episode of Junctional bradycardia to HR 50s on without hemodynamic instability - continued to be in NSR until 03/21/18 afternoon when she reverted back to Afib with rvr, - s/p amiodarone bolus and gtt and continues to be in afib - Heparin DCed with concerns for HIT (Ab came negative), started on eliquis - YESI w DCCV - back to sinus rhythm - S/P dual chamber ICD placed 03/27/2018 > Digitalis loading 03/25, continue with 250mcg / day > continue Eliquis , avoid heparin products > EP consulted - appreciate recs > COntinue PO amiodarone ' Acute Hypoxic Respiratory Failure- extubated Pulmonary edema - continues on 11/27 Lpm NC GPC bacteremia Klebsiella UTI - 11/27 BCx bottle positive for Staph and 12/28 blood cx bottles positive for Strep - streptococcus is strep mitis species, and staph looking cocci are contaminant streptococci - Klebsiella bacteriuria - ID recommended 5 days completion of abx stop date 03/24/18 - follow repeat cx till final GI Possible Shock liver vs congestive hepatopathy vs STEEN -resolved - Supportive care as above - US of abdomen03/21/18 Mild hepatomegaly. There are no usman morphologic features of cirrhosis.Mild abdominal ascites. 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 Aguero. [facility] Internal Medicine / PGY-2 Pager [phone] Subjective: Farheen Gutierres is a 68 y.o. female. No overnight events. She was extubated , and had DCCV on 03/26 and ICD placed 03/27. She was eating breakfast. No complaints, denied Chest pain, abdominal pain, changes with bowel movements or urine, weakness, dizziness, palpitations, headache and difficulty breathing. Objective: Vital Signs: Last Filed Vital Signs: 24 Hour Range BP: 131/44 (03/28 1531) Temp: 36.6 C (97.9 F) (03/28 1531) Pulse: 75 (03/28 1531) Respirations: 14 PER MINUTE (03/28 1531) SpO2: 95 % (03/28 1531) O2 Delivery: Nasal Cannula (03/28 1531) SpO2 Pulse: 71 (03/28 0800) BP: (112-153)/(44-89) Temp: [36.6 C (97.8 F)-36.7 C (98.1 F)] Pulse: [60-75] Respirations: [8 PER MINUTE-20 PER MINUTE] SpO2: [95 %-99 %] O2 Delivery: Nasal Cannula Intake/Output Summary (Last 24 hours) at 03/28/18 165 Last data filed at 03/28/18 153 Gross per 24 hour Intake 1198.5 ml Output 2170 ml Net -971.5 ml PHYSICAL EXAMINATION: GENERAL: awake , alert, oriented In mild distress HEENT: Atraumatic/Normocephalic, cornea/conjunctiva clear, normal external ears and nose, no lymphadenopathy and thyroid enlargement, JVP + Lungs: crackles at lung bases Heart: irregular, tachycardic, distant heart sounds due to body habitus Abdomen: Soft, non tender, no organomegaly, bowel sounds present Neurologic: PERRL. Spontaneously moves extremities and responds to verbal and tactile stimuli. Extremities: No visible deformities, pulses palpable, + 1 edema bilaterally in the lower extremities LABS: Recent Labs 03/26/18 0430 03/26/18 1700 03/27/18 0515 03/27/18 1815 03/28/18 0404 NA 139 137 137 133* 136* K 3.9 4.5 3.7 3.8 4.2 CL 90* 91* 91* 88* 93* CO2 42* 42* 37* 36* 34* GAP 7 4 9 9 9 BUN 38* 41* 45* 41* 41* CR 0.98 1.13* 1.11* 1.23* 1.04* GLU 132* 144* 120* 349* 75 CA 10.0 9.7 10.0 9.5 9.7 ALBUMIN 3.6 3.7 3.6 -- -- MG 2.1 2.1 2.0 2.0 1.9 Recent Labs 03/26/18 0430 03/26/18 1700 03/27/18 0515 03/28/18 0404 WBC 9.4 -- 8.6 8.5 HGB 12.8 -- 11.9* 11.4* HCT 40.5 -- 36.5 35.4* PLTCT 108* -- 117* 132* INR -- -- 1.3* -- AST 20 31 24 -- ALT 39 41 41 -- ALKPHOS 52 53 55 -- Estimated Creatinine Clearance: 62 mL/min (A) (based on SCr of 1.04 mg/dL (H)). Vitals: 03/26/18 0600 03/26/18 1420 03/27/18 0400 Weight: 98.5 kg (217 lb 2.5 oz) 98.5 kg (217 lb 2.5 oz) 95.5 kg (210 lb 8.6 oz) No results for input(s): PHART, PO2ART in the last 72 hours. Invalid input(s): PC02A MEDS amiodarone 400 mg Oral BID apixaban 5 mg Oral BID bumetanide 4 mg Oral BID(9-17) digoxin 125 mcg Intravenous QDAY insulin aspart U-100 0-14 Units Subcutaneous ACHS insulin aspart U-100 18 Units Subcutaneous TID w/ meals insulin glargine 35 Units Subcutaneous BID levothyroxine 125 mcg Per NG tube QDAY(07) melatonin 3 mg Oral QHS nystatin Topical BID PARoxetine 40 mg Per NG tube QDAY potassium chloride SR 40 mEq Oral QDAY IV MEDS DOBUTamine (DOBUTREX) 1,000 mg in sodium chloride 0.9% (NS) 250 mL IV drip ( std conc) 2 mcg/kg/min (03/27/18 0400) propofol (DIPRIVAN) 10 mg/mL IV infusion Stopped (03/26/18 1435) sodium chloride 0.9 % infusion Stopped (03/27/18 1315) Prnacetaminophen Q4H PRN, aluminum/magnesium hydroxide Q4H PRN, carboxymethylcellulose PRN, lidocaine PF PRN, pancrelipase 20,000 Units/ sodium bicarbonate 650 mg(#) PRN (Combination Window Installer from Rx) Associated attestation - Philippe Aguero MD - 03/28/2018 6:31 PM CDT Teaching Physician Attestation: I have personally interviewed and examined the patient, have reviewed the documentation, and agree with the assessment and plan of the resident. Please see my separate progress note from earlier today for further details on this patient's care. Philippe Aguero MD * Philippe Aguero MD - 03/28/2018 4:31 PM CDT Teaching Physician Attestation: I have personally interviewed and examined the patient, have reviewed the documentation, and agree with the assessment and plan of the resident. She has been transferred out of the coronary care unit. She has some weakness tiredness and fatigue. Her device site is healing with only a small area of ecchymosis. There is no evidence of any infection. Her hemoglobin is 11.4. Platelet counts increased at 132,000. White blood cell count is 8.5. The creatinine is improved at 1.04. Potassium is 4.2. Like to continue with intravenous dobutamine. We may want to taper that gradually over the next few days. She is going to need ambulation and close monitoring to her heart rhythm and volume status. She will probably need transfer to an inpatient rehab setting at the time of discharge from the hospital. We had a long conversation with the patient and her today and have answered all the questions. Still not sure if she will need to be on dobutamine at the time of discharge. Philippe Aguero MD * Tiffany Moss - 03/28/2018 12:19 PM CDT SPEECH-LANGUAGE PATHOLOGY DAILY TREATMENT NOTE Patient seen 1x this date. Documentation reflects all daily treatment sessions. SUMMARY OF THERAPY SESSION: Swallow treatment completed. Oropharyngeal swallow WNL. No s/s of aspiration noted with any consistencies trialed and pt reports no difficulty swallowing during meals. RECOMMENDATIONS Continue regular solids/thin liquids. -Intermittent supervision w/ PO intake, small/single bites/sips. Slow rate of intake. Dentures in place with solids. Meds in puree No further speech therapy warranted at this time. NEW GOAL: Pt will tolerate regular solids and thin liquids with <10% s/s of aspiration and without negative pulmonary status changes provided min cues to adhere to safe swallow strategies. Met Comments: Observed with consecutive drinks of thin liquids via straw at bedside. No s/s of aspiration noted. Also observed with regular solids. Pt exhibits prolonged mastication and requests liquid wash to help in oral stage, consistent w/ baseline.. No oral residue noted after swallow. Therapist: Micki Cates/LARRY-HATCHERY MANAGER (Pager [phone]; Voalte: [phone]) Date: 03/28/2018 * Dana Gregg - 03/28/2018 11:36 AM CDT CLINICAL NUTRITION Clinical Nutrition Follow-Up Summary Nutrition Assessment of Patient: Malnutrition Assessment: Adequately nourished prior to admission Current Oral Intake: Improving, Marginally Adequate Estimated Calorie Needs: 9089-7225 (25-28 kcals/kg per DBW 69.9kg) Estimated Protein Needs: 84-98 (1.2-1.4 gm/kg per DBW 69.9kg) Oral Diet Order: Cardiac Pt is a 68 y.o. female with a PMH that includes DM II (A1c 6.6%), HTN, HLD, hypothyroidism who transferred from outside facility for cardiogenic shock on . Pt started on TF 03/19. Pt extubated 03/22 and didn't pass initial swallow study, so continued on TFs up until ~noon on 03/25 when tube was removed. Pt cleared for regular diet with thin liquids by HATCHERY MANAGER on 03/25. Now on cardiac diet with thin liquids. Note weight is down 20.5 kg, but is net negative 23.4 L per I /Os. PO intakes have continued to improve. Yesterday she ate 90% of two meals and this morning 85% of her breakfast chinese toast, sausage, orange juice, and fruit. 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 Denies GI issues. She avoids added sugars for her diabetes. Declines carb counting education today. POC BG x 24 hr ranging 75-279 mg/dL. Made pt aware Boost GC available upon request. Will continue to [facility]. Recommendation: Add on 60 g/meal consistent carb diet to cardiac diet. Offer Boost GC if PO intakes are poor. Intervention / Plan: Encourage continued good PO intake efforts. Offered Boost GC and ordered PRN Monitor PO intakes, GI, wt, labs, meds Nutrition Diagnosis: Nutrition Diagnosis: Inadequate oral intake Etiology: recent transition from EN to PO Signs & Symptoms: 25-85% of 1-2 meals x3 days Goals: Avoid prolonged NPO status Time Frame: Within 72 Hours Status: Met;new goal established Patient to consume >75% of meals/supplements Time Frame: Within 72 Hours Dana Pemberton, MS, RD, LD Pager [phone] * Scarlett Joe RN - 03/28/2018 10:34 AM CDT Report called to TREVOR Medley-all questions answered and addressed. Patient taken via wheelchair to room 802. Patient assisted to bed and settled. VSS prior to transfer. Patient sent with medications, chart, and all belongings. New RN to apply telemetry. Pt on 1/2L O2, dobutamine gtt running at 2 mcg/kg/ min. Bedside handoff completed. * Beth Ardon - 03/28/2018 9:30 AM CDT Formatting of this note may be different from the original. OCCUPATIONAL THERAPY ASSESSMENT NOTE Patient Name: Farheen Gutierres Room/Bed: [place] [address] Admitting Diagnosis: cardiogenic shock Cardiogenic shock (HCC) Past Medical History: Diagnosis Date Essential hypertension 03/19/2018 HLD (hyperlipidemia) 03/19/2018 Hypothyroidism 03/19/2018 Morbid obesity with BMI of 45.0-49.9, adult (HCC) 03/19/2018 Nonischemic cardiomyopathy (HCC) 03/19/2018 Type II diabetes mellitus (HCC) 03/19/2018 Mobility Progressive Mobility Level: Walk in room Distance Walked (feet): 15 ft Level of Assistance: Assist X2 (2nd person for chair follow) Assistive Device: Walker Time Tolerated: 11-30 minutes Activity Limited By: Weakness;Fatigue Subjective Precautions: Falls;Isolation;O2 Requirement;Pacemaker Precautions (1 L via nasal cannula) Pain / Complaints: Patient agrees to participate in therapy Objective Psychosocial Status: Willing and Cooperative to Participate Persons Present: RehabTechnician;Spouse Home Living Type of Home: House Home Layout: One Level;Stairs to Enter w/o Rails (2 steps to enter) Bathroom Shower / Tub: Tub/Shower Unit Bathroom Toilet: Standard Prior Function Level Of [place]: Independent with ADLs and functional transfers Lives With: Spouse Receives Help From: Spouse ADL's Where Assessed: Chair;Standing at Sink Grooming Assist: Minimal Assist Grooming Deficits: Steadying;Teeth Care;Increased Time To Complete;Wash/Dry Face Functional Transfer Assist: Moderate Assist Functional Transfer Deficits: Steadying;Verbal Cueing;Increased Time to Complete Comment: Supine to sit with mod assist for trunk management. Patient able to stand from bed with min assist and ambulate to sink with mod assist and extra time. Patient required seated rest break and able to start grooming from seated position and complete in standing with encouragement. Patient required mod assist to stand from commode and ambulate to chair. Activity Tolerance Endurance: 3/5 Tolerates 25-30 Minutes Exercise w/Multiple Rests Cognition Overall Cognitive Status: WFL to Adequately Complete Self Care Tasks Safely UE Strength / Tone Comment: generalized weakness Education Persons Educated: Patient/Family Topics: Role of OT, Goals for Therapy;ADL Compensatory Techniques Goal Formulation: With Patient Assessment Assessment: Decreased ADL Status;Decreased UE Strength;Decreased Endurance; Decreased Self-Care Trans;Decreased High-Level ADLs;Decreased UE ROM Goal Formulation: Patient AM-PAC 6 Clicks Daily Activity Inpatient Putting on and taking off regular lower body clothes?: A Lot Bathing (Including washing, rinsing, drying): A Lot Toileting, which includes using toilet, bedpan, or urinal: Total Putting on and taking off regular upper body clothing: A Lot Taking care of personal grooming such as brushing teeth: A Little Eating meals?: None Daily Activity Raw Score: 14 Standardized (t-scale) score: 33.39 CMS 0-100% Score: 59.67 CMS G Code Modifier: CK Plan OT Frequency: 5x/week OT Plan for Next Visit: grooming at sink, lower body dressing ADL Goals Patient Will Perform Grooming: Standing at Sink;w/ Stand By Assist Patient Will Perform Toileting: w/ Minimum Assist Functional Transfer Goals Pt Will Transfer To Bedside Commode: w/ Minimum Assist OT Discharge Recommendations OT Discharge Recommendations: Inpatient Setting, To address deficits, maximize function and improve safety. Equipment Recommendations: Too early to be determined Recommend ongoing assistance for: In and out of house, Transfers, Bed mobility, Stairs, Ambulation Therapist: Beth HEBERT/Micki [id number] Date: 03/28/2018 * Antonino Chand, RT - 03/28/2018 9:04 AM CDT Formatting of this note may be different from the original. RESPIRATORY THERAPY ADULT PROTOCOL EVALUATION RESPIRATORY PROTOCOL PLAN Medications Note: If indicated by protocol, medication orders will be placed by therapist. Procedures Vibrating PEP Therapy: Q4h While Awake PAP: Q4h PAP While Awake Oxygen/Humidity: O2 to keep SpO2 > 92% Monitoring: Pulse oximetry BID & PRN PATIENT EVALUATION RESULTS Chart Review * Pulmonary Hx: Smoker in home OR smoking cessation > 8 weeks * Surgical Hx: General surgery (cough & sigh not affected) * Chest X-Ray: Clear OR not available * PFT/Oxygenation: FEV1, PEFR < 70% OR Pa02 < 70 RA OR Sp02 <92% RA OR Fi02 > 0.21 to keep Sp02 > 92% OR < 24 hours post-op (02 & oxim) OR chronic C02 retention (C02) Patient Assessment * Respiratory Pattern: Regular pattern and rate OR good chest excursion with deep breathing * Breath Sounds: Crackles (no CHF) (LE) OR crackles (no CHF) with ineffective cough (AC) * Cough / Sputum: Fair cough or effort (AC) OR moderate amount sputum * Mental Status: Alert, oriented, cooperative * Activity Level: Ambulatory with assistance Priority Index Total Points: 10 Points * Priority Index: 2 PRIORITY INDEX GUIDELINES* Priority Points 1 0-9 points 2 9-18 points 3 > 18 points + Pulm Dx or Home Rx *Higher points indicate higher acuity. Therapist: Antonino Chand, RT Date: 03/28/2018 Fall AC=Airway clearance AM=Aerosolized medication BA=Wilkin aerosol DB&C=Deep breathe & cough FEV1=Forced expiratory volume in first second) IC=Inspiratory capacity LE=Lung expansion MDI=Metered dose inhaler Neb=Nebulizer O2=Oxygen Oxim=Oximetry PEFR=Peak expiratory flow rate PRESS TENDER SMOKE SIGNAL=Rapid Response Team * Tomasa Costa, PT - 03/28/2018 9:00 AM CDT PHYSICAL THERAPY NOTE 9:00 - Met with the patient to set therapy time - set for 11. 11:00 - The patient recently transferred floors, worked with OT just prior to transfer. Declines noting that therapist not likely to be able to return later this afternoon. Therapist: Tomasa Costa, PT Date: 03/28/2018 * Monica Coello PA-C - 03/28/2018 9:00 AM CDT EP Note: The patient is awake and alert. Denies complaints overnight. Dermabond remains intact. Minimal pocket edema with edges of device easily palpated. Patient will need a 7-10 day incision check. CXR reveals appropriate lead placement without evidence of pneumothorax. Device interrogation reveals normal pacing, sensing, and threshold testing. The patient is stable from an EP standpoint. We will sign off. Further post op instructions and outpatient follow up are placed in O2. Please call with any questions or concerns. Monica Coello PA-C Pager [phone] * Philippe Aguero MD - 03/27/2018 4:26 PM CDT Teaching Physician Attestation: I have personally interviewed and examined the patient, have reviewed the documentation, and agree with the assessment and plan of the resident. She has been stable overnight. She is not having any chest pain or shortness of breath. She underwent placement of implantable defibrillator. Her device site looks good with no hematoma. Her rhythm remains sinus after conversion. She is on intravenous amiodarone and that will be converted to oral treatment. I had like to continue with her intravenous dobutamine at this point. We need to begin to ambulate and determine her needs for physical and occupational therapy and try and begin to define an outpatient transition plan. She will stay in the coronary care unit today. Had a long talk with the patient and her and answered all the questions. Philippe Aguero MD * Jorge A Acosta MD - 03/27/2018 4:22 PM CDT Formatting of this note may be different from the original. Critical Care Progress Note Today's Date: 03/27/2018 Name: Farheen Gutierres Admission Date: 03/18/2018 LOS: 9 days Assessment/Plan: Principal Problem: Cardiogenic shock (HCC) Active Problems: RYAN (acute kidney injury) (HCC) HLD (hyperlipidemia) Type II diabetes mellitus (HCC) Essential hypertension Hypothyroidism PAF (paroxysmal atrial fibrillation) (HCC) Junctional bradycardia Morbid obesity with BMI of 45.0-49.9, adult (HCC) Nonischemic cardiomyopathy (HCC) Acute systolic heart failure (HCC) Pulmonary edema Acute respiratory failure with hypoxia (HCC) Shock liver Hyponatremia Infection due to parainfluenza virus 3 Cardiorenal syndrome ATTESTATION Date of Service: 03/27/2018 I have seen, personally fully evaluated, and discussed patient with the [facility] ICU team. The patient is critically ill with cardiogenic shock. I spent 45 minutes (excluding time spent performing or supervising any procedures) providing and personally directing critical care services including respiratory care, pain mgt, hemodynamic monitoring and management, lab and radiology review , medication review and management, fluid and electrolyte management and coordination of care. Neuro: Neurologically intact. Continue paxil. Cardiac: Remains on low dose dobutamine. Cont anticoagulation for a fib with eliquis. No myocarditis present. Convert amiodarone IV to PO this evening. Pacemaker placed today. Pulmonary: Wean oxygen to goal SaO2 of >92%. Incentive spirometry and pulm toilet. Renal/: Metabolic alkalosis, likely contraction alkalosis. Continue diamox through today and reassess alkalosis tomorrow. . Replace magnesium and potassium as needed. Continue diuresis with PO bumex. Heme: H/H stable. Thrombocytopenia stable and improving. Continue eliquis. Endo: IDDM. Insulin per sliding scale, lantus continue and continue home synthroid. GI: Swallow eval/nutrition post pacemaker today ID: Parainfluenza, positive blood cultures, likely contaminate and UTI, treated with antibiotics and currently off all antibiotics. This patient is critically ill with dysfunction of multiple organ systems and is at risk for additional life threatening deterioration. Cont ICU care. Discussed with her. Improving but still critically ill. Staff name: Jorge A Acosta MD Date: 03/27/2018 __ Subjective: Farheen Gutierres is a 68 y.o. female. Stable night. Objective: Medications: Scheduled Meds: acetaZOLAMIDE (DIAMOX) tablet 500 mg 500 mg Oral Q8H apixaban (ELIQUIS) tablet 5 mg 5 mg Oral BID bumetanide (BUMEX) tablet 4 mg 4 mg Oral BID(9-17) digoxin (LANOXIN) injection 125 mcg 125 mcg Intravenous QDAY insulin aspart U-100 (NOVOLOG FLEXPEN) injection PEN 0-28 Units 0-28 Units Subcutaneous 5 X Day insulin aspart U-100 (NOVOLOG FLEXPEN) injection PEN 18 Units 18 Units Subcutaneous TID w/ meals insulin glargine (LANTUS SOLOSTAR, BASAGLAR) injection PEN 35 Units 35 Units Subcutaneous BID levothyroxine (SYNTHROID) tablet 125 mcg 125 mcg Per NG tube QDAY(07) melatonin tablet 3 mg 3 mg Oral QHS nystatin (NYSTOP) topical powder Topical BID PARoxetine (PAXIL) tablet 40 mg 40 mg Per NG tube QDAY potassium chloride SR (K-DUR) tablet 40 mEq 40 mEq Oral QDAY vancomycin (VANCOCIN) 1,500 mg in dextrose 5% (D5W) IVPB 15 mg/kg Intravenous Q12H* Continuous Infusions: amiodarone (CORDARONE) 360 mg in dextrose, iso-osm 200 mL infusion 0.5 mg/ min (03/27/18 0821) DOBUTamine (DOBUTREX) 1,000 mg in sodium chloride 0.9% (NS) 250 mL IV drip ( std conc) 2 mcg/kg/min (03/27/18 0400) propofol (DIPRIVAN) 10 mg/mL IV infusion Stopped (03/26/18 1435) sodium chloride 0.9 % infusion Stopped (03/27/18 1315) PRN and Respiratory Meds:acetaminophen Q4H PRN, aluminum/magnesium hydroxide Q4H PRN, carboxymethylcellulose PRN, lidocaine PF PRN, pancrelipase 20,000 Units / sodium bicarbonate 650 mg(#) PRN (Combination Window Installer from Rx) Vital Signs: Last Filed Vital Signs: 24 Hour Range BP: 150/70 (03/27 1500) Temp: 36.6 C (97.8 F) (03/27 1500) Pulse: 75 (03/27 1500) Respirations: 12 PER MINUTE (03/27 1500) SpO2: 98 % (03/27 1500) O2 Delivery: Nasal Cannula (03/27 1500) Weight: 95.5 kg (210 lb 8.6 oz) (03/27 400) BP: (108-172)/(48-93) Temp: [36.4 C (97.5 F)-36.8 C (98.3 F)] Pulse: [61-86] Respirations: [11 PER MINUTE-18 PER MINUTE] SpO2: [95 %-99 %] O2 Delivery: Nasal Cannula Intensity Pain Scale 0-10 (Pain 1): (not recorded) Vitals: 03/26/18 0600 03/26/18 1420 03/27/18 0400 Weight: 98.5 kg (217 lb 2.5 oz) 98.5 kg (217 lb 2.5 oz) 95.5 kg (210 lb 8.6 oz) Critical Care Vitals: ICP Monitoring: PA Catheter: Hemodynamics/Oxycalcs: Intake/Output Summary: (Last 24 hours) Intake/Output Summary (Last 24 hours) at 03/27/18 1622 Last data filed at 03/27/18 1500 Gross per 24 hour Intake 1730.65 ml Output 2135 ml Net -404.35 ml Physical Exam: General: No distress, appears stated age, obese Lungs: Courese bilaterally Heart: Irregularly irregular Abdomen: Obese, hernia in midline, soft Extremities: Obese, edema, 1+ pulses, IABP in place in right femoral artery Peripheral pulses 1+ pulses Artificial airway: None Ventilator/ Respiratory Therapy: No Vent weaning trial: Not applicable Drains: None Prophylaxis Review: Lines: No Urinary Catheter: Yes; Retain mc due to: Patient on diuretics, Need for accurate Intake and Output and Acute renal insufficiency or failure Antibiotic Usage: No VTE: Eliquis for anticoagulation Lab Review: Pertinent labs reviewed Point of Care Testing: (Last 24 hours): Glucose: (!) 120 (03/27/18 0515) POC Glucose (Download): (!) 126 (03/27/18 1407) Radiology and Other Diagnostic Procedures Review: Pertinent radiology reviewed. Jorge A Acosta MD Pager [phone] * Shar Yousif MBBS - 03/27/2018 11:59 AM CDT Formatting of this note may be different from the original. Progress Note Name: Farheen Gutierres Admission Date: 03/18/2018 Admission Diagnosis: cardiogenic shock Cardiogenic shock (HCC) Principal Problem: Cardiogenic shock (HCC) Active Problems: RYAN (acute kidney injury) (HCC) HLD (hyperlipidemia) Type II diabetes mellitus (HCC) Essential hypertension Hypothyroidism PAF (paroxysmal atrial fibrillation) (HCC) Junctional bradycardia Morbid obesity with BMI of 45.0-49.9, adult (HCC) Nonischemic cardiomyopathy (HCC) Acute systolic heart failure (HCC) Pulmonary edema Acute respiratory failure with hypoxia (HCC) Shock liver Hyponatremia Infection due to parainfluenza virus 3 Cardiorenal syndrome Assessment/Plan: Farheen Gutierres is a 68 y.o. female with a history of Diabetes mellitus on insulin , Hypertension, Hyperlipidemia, Hypothyroidism, admitted for management of cardiogenic shock and acute decompensated Heart failure Acute Decompensated Heart Failure with Biventricular failure Cardiogenic shock -resolved Cardiomyopathy non ischemic Ddx- Takotsubo's, tachycardia induced - LHC on 03/18 with normal coronaries, aortic pressure 72/46, LVEDP 22, LV 71/15 , no gradient - Echo OSH 03/18 - EF 10-15%, no regional wall motion abnormalities, systolic peak pressure 32 mmHg, LA + RA dilated, mild-mod TR and mild MR - IABP placed on 03/18, removed on 03/20/18 - BNP 350 - RVP positive for parainfluenza 3 - Endomyocardial biopsy (03/19/18): No evidence of myocarditis or amyloid. Myocyte vascularization seen which is a non-specific finding and possibly suggestive of ischemia. - Echocardiogram 03/19/18 Severe global LV hypokinesis. Estimated ejection fraction 10-15%. Normal LV wall thicknesses. Severe RV hypokinesis. Septal motion consistent with RV volume overload. Severe Tricuspid regurgitation - Right heart cath (03/19/18): RA 25, RV 50/13, PA 50/28, mean 35, PCWP 25, PA saturation 65%, Cardiac output (Jnaay) 4.5, index 2.0 - CT chest 03/25/2018 without evidence of constrictive pericarditis, patchy consolidation representing atelectasis on on left > right, trace pleural effusion and ascites -PET CT with evidence of acute mild myocarditis over inferior wall of LV - YESI 03/26/18 - EF 10 %, mildly dilated LV and RV, moderate systolic dysfunction , severely enlarged LA and mod dilated RA > continue Dobutamine @ 3 mg/kg/min for now > Continue Bumetanide at 4mg BID, Net goal is -1L > Continue diamox for metabolic acidosis > Hold off on steroids as mild myocarditis Diuretic Therapy Prior to admission dose none Given on admission Lasix gtt 5/hr Daily Dosing 03/19 Lasix gtt 20, diuril x1, 03/20 lasix gtt 20 diuril x 1, 03/21 bumetanide gtt 1/hr with bolus of 2mg and Diuril x1, bumex gtt @ 1/hr on 03/22, bumex gtt 03/23-30 @ 0.75 mg/hr, bumex 4mg BID 03/26 Paroxysmal atrial Fibrillation - Unstable junctional bradycardia episode on 03/18 (while on amiodarone) at OSH s/p atropine x2 - NSR on admission with second episode of Junctional bradycardia to HR 50s on without hemodynamic instability - continued to be in NSR until 03/21/18 afternoon when she reverted back to Afib with rvr, - s/p amiodarone bolus and gtt and continues to be in afib - Heparin DCed with concerns for HIT (Ab came negative), started on eliquis - YESI w DCCV - back to sinus rhythm > Digitalis loading 03/25, continue with 250mcg / day > continue Eliquis , avoid heparin products > EP consulted - appreciated recs > Will get a pacemaker +/- Defibrillator today > Continue amiodarone, will switch to amiodarone PO today ' Acute Hypoxic Respiratory Failure- extubated Pulmonary edema - continues on 1 Lpm NC GPC bacteremia Klebsiella UTI - 1/2 BCx bottle positive for Staph and 2/2 blood cx bottles positive for Strep - streptococcus is strep mitis species, and staph looking cocci are contaminant streptococci - Klebsiella bacteriuria - ID recommended 5 days completion of abx stop date 03/24/18 - follow repeat cx till final GI Possible Shock liver vs congestive hepatopathy vs STEEN -resolved - Supportive care as above - US of abdomen03/21/18 Mild hepatomegaly. There are no usman morphologic features of cirrhosis.Mild abdominal ascites. 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 Aguero. [facility] Internal Medicine / PGY-2 Pager [phone] Subjective: Farheen Gutierres is a 68 y.o. female. No overnight events. She was extubated 03/22 , no new symptoms reported today. Patient denied Chest pain, abdominal pain, changes with bowel movements or urine, weakness, dizziness, palpitations, headache and difficulty breathing. . Objective: Vital Signs: Last Filed Vital Signs: 24 Hour Range BP: 170/85 (03/27 1100) Temp: 36.6 C (97.9 F) (03/27 0800) Pulse: 74 (03/27 1100) Respirations: 12 PER MINUTE (03/27 1100) SpO2: 98 % (03/27 1100) O2 Delivery: Nasal Cannula (03/27 1100) SpO2 Pulse: 69 (03/27 1000) Height: 167.6 cm (66") (03/26 1420) BP: (108-172)/(48-93) Temp: [36.4 C (97.5 F)-36.8 C (98.3 F)] Pulse: [65-122] Respirations: [10 PER MINUTE-30 PER MINUTE] SpO2: [94 %-100 %] O2 Delivery: Nasal Cannula Intake/Output Summary (Last 24 hours) at 03/27/18 1200 Last data filed at 03/27/18 0900 Gross per 24 hour Intake 1429.77 ml Output 2260 ml Net -830.23 ml PHYSICAL EXAMINATION: GENERAL: awake , alert, oriented In mild distress HEENT: Atraumatic/Normocephalic, cornea/conjunctiva clear, normal external ears and nose, no lymphadenopathy and thyroid enlargement, JVP + Lungs: crackles at lung bases Heart: irregular, tachycardic, distant heart sounds due to body habitus Abdomen: Soft, non tender, no organomegaly, bowel sounds present Neurologic: PERRL. Spontaneously moves extremities and responds to verbal and tactile stimuli. Extremities: No visible deformities, pulses palpable, + 1 edema bilaterally in the lower extremities LABS: Recent Labs 03/24/18 1545 03/24/18211003/25/18 0255 03/25/18 1640 03/26/18 0430 03/26/18 1700 03/27/18 0515 NA 137 135* 139 138 139 137 137 K 3.9 3.8 3.7 4.1 3.9 4.5 3.7 CL 90* 90* 90* 90* 90* 91* 91* CO2 42* 40* 44* 44* 42* 42* 37* GAP 5 5 5 4 7 4 9 BUN 40* 40* 39* 39* 38* 41* 45* CR 0.93 0.98 0.90 1.07* 0.98 1.13* 1.11* GLU 210* 246* 73 168* 132* 144* 120* CA 9.3 9.4 9.8 9.9 10.0 9.7 10.0 ALBUMIN 3.4* -- 3.5 3.7 3.6 3.7 3.6 MG 2.1 -- 2.3 2.2 2.1 2.1 2.0 Recent Labs 03/24/18 1545 03/25/1825403/25/18163903/26/1842903/26/18 17003/27/18 0515 WBC -- 9.8 -- 9.4 -- 8.6 HGB -- 11.7* -- 12.8 -- 11.9* HCT -- 36.8 -- 40.5 -- 36.5 PLTCT -- 81* -- 108* -- 117* INR -- -- -- -- -- 1.3* AST 19 19 18 20 31 24 ALT 53 48 43 39 41 41 ALKPHOS 44 45 51 52 53 55 Estimated Creatinine Clearance: 58.1 mL/min (A) (based on SCr of 1.11 mg/dL (H)) . Vitals: 03/26/18 0600 03/26/18 1420 03/27/18 0400 Weight: 98.5 kg (217 lb 2.5 oz) 98.5 kg (217 lb 2.5 oz) 95.5 kg (210 lb 8.6 oz) No results for input(s): PHART, PO2ART in the last 72 hours. Invalid input(s): PC02A MEDS acetaZOLAMIDE 500 mg Oral Q8H apixaban 5 mg Oral BID bumetanide 4 mg Oral BID(9-17) digoxin 125 mcg Intravenous QDAY insulin aspart U-100 0-28 Units Subcutaneous 5 X Day insulin aspart U-100 18 Units Subcutaneous TID w/ meals insulin glargine 35 Units Subcutaneous BID levothyroxine 125 mcg Per NG tube QDAY(07) melatonin 3 mg Oral QHS nystatin Topical BID PARoxetine 40 mg Per NG tube QDAY potassium chloride SR 40 mEq Oral QDAY vancomycin IVPB 15 mg/kg Intravenous Q12H* IV MEDS amiodarone (CORDARONE) 360 mg in dextrose, iso-osm 200 mL infusion 0.5 mg/ min (03/27/18 0821) DOBUTamine (DOBUTREX) 1,000 mg in sodium chloride 0.9% (NS) 250 mL IV drip ( std conc) 2 mcg/kg/min (03/27/18 0400) propofol (DIPRIVAN) 10 mg/mL IV infusion Stopped (03/26/18 1435) sodium chloride 0.9 % infusion 1,000 mL (03/27/18 0822) Prnacetaminophen Q4H PRN, aluminum/magnesium hydroxide Q4H PRN, carboxymethylcellulose PRN, lidocaine PF PRN, pancrelipase 20,000 Units/ sodium bicarbonate 650 mg(#) PRN (Combination Window Installer from Rx) Associated attestation - Philippe Aguero MD - 03/27/2018 5:21 PM CDT Teaching Physician Attestation: I have personally interviewed and examined the patient, have reviewed the documentation, and agree with the assessment and plan of the resident. Please see my separate progress note from earlier today for further details on this patient's care. Philippe Aguero MD * Coreen Eason - 03/27/2018 11:23 AM CDT SPEECH-LANGUAGE PATHOLOGY NO TREATMENT NOTE The patient was not seen due to: Pt NPO for procedure on this date. Will f/u to ensure tolerance with diet Attempted to see patient 1 time Therapist: Coreen Eason MS, L/CCC-HATCHERY MANAGER, [id number] Date: 03/27/2018 * Shahida Patterson, PT - 03/27/2018 11:18 AM CDT PHYSICAL THERAPY NOTE Patient off the unit for pacemaker placement. Physical therapy will continue to follow and provide intervention as indicated. Therapist: Shahida Patterson, PT, DPT Date: 03/27/2018 * Ayesha Hdz, RN - 03/27/2018 11:08 AM CDT Pt traveling down to EP lab for ICD placement. Traveled down with EP nurse on bed, monitor, Amiodarone and Dobutamine gtt's. * Beth Ardon - 03/27/2018 10:49 AM CDT OCCUPATIONAL THERAPY NO TREATMENT NOTE The patient was not seen due to: Patient to EP lab for PPM today. Occupational therapy will continue to follow and provide intervention as indicated. Therapist: Beth Ardon OTR/L [id number] Date: 03/27/2018 * Isa Hackett RN - 03/27/2018 6:37 AM CDT Formatting of this note may be different from the original. Heart Failure Nursing Progress Note Admission Date: 03/18/2018 LOS: 9 days Admission Weight: 116 kg (255 lb 11.7 oz) Most recent weights (inpatient): Vitals: 03/26/18 0600 03/26/18 1420 03/27/18 0400 Weight: 98.5 kg (217 lb 2.5 oz) 98.5 kg (217 lb 2.5 oz) 95.5 kg (210 lb 8.6 oz) Fluid restriction ordered: None Total Net loss this hospital stay:-23,382.4 Daily Assessment of Patient Stated Goals: Short Term Goal Identified by patient (Short Term=during hospitalization): To get my ICD placed today. 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 Does patient understand the pathophysiology of their heart failure diagnosis? More Instruction Required Does the patient understand the importance of recording their weight and blood pressure readings daily in the log sheet that will be sent home with them? More Instruction Required Does the patient understand the heart failure zone sheet and when to call their HF provider or 911 depending on their symptom severity? More Instruction Required Does the patient understand the medications that they are taking for their HF and what each one of them does? More Instruction Required Does the patient understand their sodium restriction, the sodium level that they are not to exceed and why it is important to follow this restriction? More Instruction Required Is the patient able to demonstrate how to read food labels and calculate the sodium content in a container of food? More Instruction Required Does the patient know what their fluid restriction is and why it is important to follow it? More Instruction Required Does the patient still use tobacco, consume ETOH or street drugs? Do they understand the importance of cessation of these habits? More Instruction Required Does the patient know the importance of remaining active and exercising as tolerated? More Instruction Required Does the patient understand the importance of attending all HF follow-up appointments as directed by their HF provider? More Instruction Required * Philippe Aguero MD - 03/26/2018 4:46 PM CDT There was successful cardioversion to sinus rhythm. The amiodarone has been reinitiated. She will continue with anticoagulation. She is going to be scheduled for a pacemaker/defibrillator. Her PET scan showed only mild inflammation. We will defer corticosteroids at this point. * Mejia Rivas MD - 03/26/2018 3:30 PM CDT Formatting of this note may be different from the original. Infectious Diseases Progress Note Today's Date: 03/26/2018 Admission Date: 03/18/2018 Reason for this consultation: Strep mitis bacteremia and Klebsiella UTI, pencillin allergic, assist with Abx managment Co-Management w/Signed Orders Assessment: Sepsis: Streptococcus mitis/oralis bacteremia and Klebsiella aerogenes UTI Apart from identification of a viridans streptococcus from blood, there is no evidence for endocarditis. Parainfluenza infection is rarely associated with cardiomyopathy and pericarditis Clin Microbiol Rev v.16(2); 2002 [id number] J Clin Microbiol. 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 She did not have difficulty breathing, swelling of the tongue or neck or rash. Her physician made a return house call. She does not remember if she received any treatment. She was not hospitalized for this. Recommendations: She has been off of antibiotics for two days. She remains afebrile. WBC remains normal (9.4). YESI showed LVEF 10% and moderate RV dysfunction, but all valves were normal. Creat 0.98. She is now off of dobutamine. Successful cardioversion from a fib to earlier today. Had cardiac PET. Observe off of antibiotics. Pacemaker/defibrillator for 03/27 (tentative). ID will follow from a distance. Discussed with . Mejia Rivas MD Interval History Farheen Gutierres is a 68 y.o. See above. ROS Tired, but generally better. No fever Breathing is good. Hungry. No diarrhea No rash Attending Summary based on initial ID consultation note of 03/23/18: The patient is a 68-year-old woman who was admitted to cardiology on 03/18/18 in transfer for from [facility] in [place], [place] for cardiogenic shock which occurred after an attempt was made at cardioversion for newly diagnosed atrial fibrillation. ID (Dr. Rivas) was consulted on 03/23/18 for treatment of Streptococcus mitis/oralis bacteremia and Klebsiella UTI in the setting of a history of penicillin allergy. The patient has morbid obesity and DM. There was no prior cardiac history. 3 days prior to admission on 03/18/18 she noted abdominal symptoms of fullness, distention, bloating and constipation for 3-4 days prior to admission. Also, she noted a decrease in urine output. She sought evaluation at her local hospital in [place], [place]. There she was noted to be in atrial fibrillation with RVR and was therefore promptly transferred to [facility] in [place], [place]. According to her while at [facility] the patient deteriorated abruptly with a blood pressure of 58 and bradycardia. She was intubated and an IABP placed with improvement in her status. Shortly thereafter she was transferred to . I spoke with her attending, Dr. Jones on 03/23/18. At the time of ID consultation the patient had made substantial recovery and was no longer in cardiogenic shock. In particular, she was no longer on pressors or inotropes and the IABP had been removed and she had just been extubated the day before on 03/22. The etiology of the cardiogenic shock has so far defied investigation, including cardiac biopsy (03/19/18 - myocardium with moderate fibrosis, but not myocarditis) and a normal coronary angiogram (done at [facility]). At the time of ID consultation on 03/23/18, the most recent echocardiogram was on 03/21/18. This was a technically difficult study but showed severely reduced LV systolic function with an estimated EF of 20% and severe, global hypokinesis. The right ventricle was moderately enlarged and also showed decreased systolic function. There was trace mitral valve regurgitation and [id number] tricuspid valve regurgitation. Neither the AV nor PV were well seen. She remained in atrial fibrillation with RVR despite amiodarone and IV digoxin. She was diuresing well on a bumetanide drip and remained on heparin and amiodarone drips. ID consultation was prompted by the return of two sets of blood cultures, collected almost simultaneously early on 03/19/18 and prior to antibiotic therapy , for Streptococcus mitis/oralis. At the time of ID consultation, there had been no additional blood cultures collected. Also, a urine culture from (also collected prior to antibiotic administration) grew K aerogenes (>100, 00K). It is likely that the collection of cultures was prompted by the leukocytosis of 15.9 at the time of admission, but Dr Jones's impression was that the patient did not have an infection. There was no fever. The patient said that when she was less than 12 years old, she was given a penicillin shot which caused her to be sleepy. She did not have difficulty breathing, swelling of the tongue or neck or rash. Her physician made a return house call. She does not remember if she received any treatment. She was not hospitalized for this. During the hospitalization the platelet count declined steadily from 149K on admission to 72K on 03/23/18; Over the same period, the hemoglobin declined from 13.6 to 11.5. She has had renal insufficiency, with an abnormal creatinine at admission (1.71) , which peaked at 1.88 on 03/21 and which had declined to 1.28 on 03/23. It appears that she also had an element of shock liver which had resolved by . An RVP on 03/19/18 was positive for parainfluenzae 3. Her said that he brought back a cold from a trip to [place] and on about 03/13 the patient told him she was "getting [his] crud", meaning she developed cold symptoms. It was a few days later when she began to develop abdominal bloating and diminished urine output. YESI 03/26/18: Severe LV dysfunction, EF 10% Mildly dilated RV/moderate systolic dysfunction Normal structures of all 4 valves Antimicrobial Start date End date Vancomycin (IV) 03/19 03/23 cefepime 03/19 03/24 Estimated Creatinine Clearance: 66.9 mL/min (based on SCr of 0.98 mg/dL). Medications Scheduled Meds: acetaZOLAMIDE (DIAMOX) tablet 500 mg 500 mg Oral BID amiodarone (CORDARONE) 150 mg in dextrose 5% (D5W) 100 mL IVPB (load) 150 mg Intravenous ONCE apixaban (ELIQUIS) tablet 5 mg 5 mg Oral BID bumetanide (BUMEX) tablet 4 mg 4 mg Oral BID(08-12) digoxin (LANOXIN) injection 250 mcg 250 mcg Intravenous QDAY FENTANYL CITRATE (PF) 50 MCG/ML IJ SOLN (Cabinet Override) NOW FENTANYL CITRATE (PF) 50 MCG/ML IJ SOLN (Cabinet Override) NOW insulin aspart U-100 (NOVOLOG FLEXPEN) injection PEN 0-28 Units 0-28 Units Subcutaneous 5 X Day insulin aspart U-100 (NOVOLOG FLEXPEN) injection PEN 23 Units 23 Units Subcutaneous TID w/ meals insulin glargine (LANTUS SOLOSTAR, BASAGLAR) injection PEN 35 Units 35 Units Subcutaneous BID levothyroxine (SYNTHROID) tablet 125 mcg 125 mcg Per NG tube QDAY() LIDOCAINE HCL 10 MG/ML (1 %) IJ SOLN (Cabinet Override) NOW MIDAZOLAM 1 MG/ML IJ SOLN (Cabinet Override) NOW MIDAZOLAM 1 MG/ML IJ SOLN (Cabinet Override) NOW nystatin (NYSTOP) topical powder Topical BID pantoprazole (PROTONIX) injection 40 mg 40 mg Intravenous QDAY PARoxetine (PAXIL) tablet 40 mg 40 mg Per NG tube QDAY potassium chloride oral solution 40 mEq 40 mEq Per NG tube QDAY Continuous Infusions: amiodarone (CORDARONE) 360 mg in dextrose, iso-osm 200 mL infusion DOBUTamine (DOBUTREX) 1,000 mg in sodium chloride 0.9% (NS) 250 mL IV drip ( std conc) 2 mcg/kg/min (03/26/18 1420) propofol (DIPRIVAN) 10 mg/mL IV infusion Stopped (03/26/18 1435) [START ON 03/27/2018] sodium chloride 0.9 % infusion PRN and Respiratory Meds:acetaminophen Q4H PRN, aluminum/magnesium hydroxide Q4H PRN, carboxymethylcellulose PRN, lidocaine PF PRN, pancrelipase 20,000 Units / sodium bicarbonate 650 mg(#) PRN (Combination Window Installer from Rx) Physical Examination Vital Signs: Last Vital Signs: 24 Hour Range BP: 130/78 (03/26 1425) Temp: 36.5 C (97.7 F) (03/26 1200) Pulse: 109 (03/26 1425) Respirations: 13 PER MINUTE (03/26 1425) SpO2: 95 % (03/26 1425) O2 Delivery: Nasal Cannula (03/26 1300) SpO2 Pulse: 104 (03/26 1425) Height: 167.6 cm (66") (03/26 1420) BP: (99-141)/(42-98) Temp: [36.5 C (97.7 F)-36.8 C (98.3 F)] Pulse: [76-122] Respirations: [8 PER MINUTE-30 PER MINUTE] SpO2: [91 %-98 %] O2 Delivery: Nasal Cannula Gen weak Skin no rash Eyes no icterus Chest bilat wheezing Cor distant heart tones. No murmur abd obese, soft Lines: L IJ 3LC, 03/19/18 REMOVED 03/25/18 Lab Review Hematology Recent Labs 03/24/18 0400 03/25/18 0255 03/26/18 0430 WBC 8.3 9.8 9.4 HGB 11.8* 11.7* 12.8 HCT 35.2* 36.8 40.5 PLTCT 71* 81* 108* Chemistry Recent Labs 03/25/18 0255 03/25/18 1640 03/26/18 0430 NA 139 138 139 K 3.7 4.1 3.9 CL 90* 90* 90* CO2 44* 44* 42* BUN 39* 39* 38* CR 0.90 1.07* 0.98 GFR >60 51* 57* GLU 73 168* 132* CA 9.8 9.9 10.0 ALBUMIN 3.5 3.7 3.6 ALKPHOS 45 51 52 AST 19 18 20 ALT 48 43 39 TOTBILI 0.5 0.6 0.9 Microbiology, Radiology and other Diagnostics Review Microbiology data reviewed. Pertinent radiology images viewed. Impression: Mejia Rivas MD Pager [phone] Infectious Diseases Faculty * Breanna Puckett, RD - 03/26/2018 1:53 PM CDT CLINICAL NUTRITION Clinical Nutrition Follow-Up Summary Nutrition Assessment of Patient: Malnutrition Assessment: Adequately nourished prior to admission Current Oral Intake: NPO Estimated Calorie Needs: 5287-1491 (25-28 kcals/kg per DBW 69.9kg) Estimated Protein Needs: 84-98 (1.2-1.4 gm/kg per DBW 69.9kg) Oral Diet Order: NPO Intake (calories) Daily Average : 1296 kilocalories (~74% est kcal needs via 3- day EN intake avg) Intake (protein) Daily Average : 75 grams (~88% low end est protein needs via 3- day EN intake avg) Pt is a 68 y.o. female with a PMH that includes DM II, HTN, HLD, hypothyroidism who transferred from outside facility for cardiogenic shock on 03/18. Pt started on TF 03/19. Pt extubated 03/22 and didn't pass initial swallow study, so continued on TFs up until ~noon on 03/25 when tube was removed. Pt cleared for regular diet with thin liquids by HATCHERY MANAGER on 03/25. Pt was on FLD +nectar thick liquids yesterday; appears intake limited. Pt has been off unit during attempts to see today. NPO today for cardiac PET this AM and then planned YESI with cardioversion. Tentative plan for pacemaker/defibrillator tomorrow. Note weight down 17.5kg, but is net negative 21.9L per I/o. Recommendation: PO diet textures per HATCHERY MANAGER recs; goal diet of 60g carb/meal consistent carb diabetic +cardiac. Offer Boost Glucose control prn when diet resumes. Follow PO intake for need of replacing feeding tube/restarting TF. REC Isosource 1.5 at 55ml/hr +1pk prosource protein if unable to resume PO diet following procedures or PO intake poor. Intervention / Plan: Monitor for PO diet advancement/tolerance following procedures. Follow for need of feeding tube replacement pending PO intake/diet advancement. Monitor wt trends, labs, meds, GI symptoms. Nutrition Diagnosis: Nutrition Diagnosis: Inadequate protein-energy intake Etiology: feeding delays, procedures, prior swallowing difficulty Signs & Symptoms: current NPO status (previously gradually increasing PO diet) with EN off,. Goals: EN tolerated and meeting >75% of nutritional needs Time Frame: Within 72 Hours Status: Partially met;new goal established Avoid prolonged NPO status Time Frame: Within 72 Hours Breanna Puckett MA, RD, LD, [facility] *[id number] * Philippe Aguero MD - 03/26/2018 1:26 PM CDT Teaching Physician Attestation: I have personally interviewed and examined the patient, have reviewed the documentation, and agree with the assessment and plan of the resident. She remains weak and tired and short of breath with exertion. She is up in the chair. She is pale. She remains in atrial fibrillation. The ventricular rate response is 90-100.. She is planned for transesophageal echo/cardioversion later today. She is tentatively on for a pacemaker/defibrillator tomorrow. She remains on Diamox for her elevated CO2 level. Her CT scan did not show any pericardial effusion or thickening. Her cardiac PET scan is pending. She will remain on digoxin. Her hemoglobin is 12.8. Her platelet counts better at 108, 000. White blood cell count is 9.4 creatinine 0.98 potassium 3.9. Further recommendations are pending the YESI and cardioversion results. Pedal long talk with the patient and her . And answered all of the questions. Philippe Aguero MD * Isis Luna RN - 03/26/2018 1:05 PM CDT Formatting of this note may be different from the original. Pre-Operative Assessment for YESI or Cardioversion Date of Service: 03/26/2018 Farheen Gutierres is a 68 y.o. y.o. female. : 1950 MRN# : [id number] Procedure to be performed: YESI and Cardioversion Expected Procedure Date: 03/26/18 Indication: atrial fibrillation Patient appears alert and oriented: Yes NPO: for greater than 8 hours Inpatient IV status: #22 to right forearm, #20 to right mid forearm Isolation status: contact precautions Last YESI date: None Last Cardioversion date: None Anticoagulation Results Anticoagulant: apixaban (Eliquis) Missed dose: No Last MAC INR Flow Sheet Entry: Last recorded Lab results: INR Date Value Ref Range Status 03/19/2018 1.9 (H) 0.8 - 1.2 Final APTT Date Value Ref Range Status 03/23/2018 101.5 (H) 21.0 - 39.0 SEC Final Allergies Allergies Allergen Reactions Latex SEE COMMENTS skin irritation Pcn [Penicillins] SEE COMMENTS The patient said that when she was [...] this. Entered by Rob GARRETT on 03/23/18 Vitals Estimated body mass index is 35.05 kg/m as calculated from the following: Height as of this encounter: 1.676 m (5' 6"). Weight as of this encounter: 98.5 kg (217 lb 2.5 oz). Diagnostic Tests White Blood Cells Date Value Ref Range Status 03/26/2018 9.4 4.5 - 11.0 K/UL Final Hemoglobin Date Value Ref Range Status 03/26/2018 12.8 12.0 - 15.0 GM/DL Final Hematocrit Date Value Ref Range Status 03/26/2018 40.5 36 - 45 % Final Platelet Count Date Value Ref Range Status 03/26/2018 108 (L) 150 - 400 K/UL Final Sodium Date Value Ref Range Status 03/26/2018 139 137 - 147 MMOL/L Final Potassium Date Value Ref Range Status 03/26/2018 3.9 3.5 - 5.1 MMOL/L Final Magnesium Date Value Ref Range Status 03/26/2018 2.1 1.6 - 2.6 mg/dL Final Blood Urea Nitrogen Date Value Ref Range Status 03/26/2018 38 (H) 7 - 25 MG/DL Final Creatinine Date Value Ref Range Status 03/26/2018 0.98 0.4 - 1.00 MG/DL Final Glucose Date Value Ref Range Status 03/26/2018 132 (H) 70 - 100 MG/DL Final Blood Cultures Microbiology - Resulted Micro Last 72 Hrs CULTURE-BLOOD W/SENSITIVITY Resulted: 03/26/18 0648, Result status: Final result Ordering provider: Shar Yousif MBBS 03/19/18 223 Resulting lab: [facility] Specimen Information Source Collected On Blood 03/19/18 5990 Components Component Value Flag Battery Name BLOOD CULTURE Specimen Description -- Result: BLOOD RIGHT WRIST Special Requests NONE Culture NO GROWTH 5 DAYS Report Status -- Result: FINAL 03/26/2018 Echo procedures within the past 30 days: No results found. Device Information on File No results found for: GENERATOR, EPDEVTYP Current Medications No current facility-administered medications on file prior to encounter. No current outpatient prescriptions on file prior to encounter. Past Medical History Past Medical History: Diagnosis Date Essential hypertension 03/19/2018 HLD (hyperlipidemia) 03/19/2018 Hypothyroidism 03/19/2018 Morbid obesity with BMI of 45.0-49.9, adult (HCC) 03/19/2018 Nonischemic cardiomyopathy (HCC) 03/19/2018 Type II diabetes mellitus (HCC) 03/19/2018 Past Surgical History Past Surgical History: Procedure Laterality Date HX SHOULDER REPLACEMENT Left Social History Social History Substance Use Topics Smoking status: Former Smoker Packs/day: 1.00 Years: 40.00 Types: Cigarettes Smokeless tobacco: Not on file Comment: Quit 8 years ago Alcohol use Yes Comment: Occassionally Additional Comments: Done at bedside Probe Assessment (only for YESI procedures): Positive for: GERD Sedation Assessment: Positive for: O2 and ETOH 2 liquor drinks per week(s) YESI/DCCV done at bedside. Probe in at 1420. Out at 1431. We did Cardiovert x 1 at 200 joules. Pt tolerated procedure well. * Jorge A Acosta MD - 03/26/2018 12:35 PM CDT Formatting of this note may be different from the original. Critical Care Progress Note Today's Date: 03/26/2018 Name: Farheen Gutierres Admission Date: 03/18/2018 LOS: 8 days Assessment/Plan: Principal Problem: Cardiogenic shock (HCC) Active Problems: RYAN (acute kidney injury) (HCC) HLD (hyperlipidemia) Type II diabetes mellitus (HCC) Essential hypertension Hypothyroidism PAF (paroxysmal atrial fibrillation) (HCC) Junctional bradycardia Morbid obesity with BMI of 45.0-49.9, adult (HCC) Nonischemic cardiomyopathy (HCC) Acute systolic heart failure (HCC) Pulmonary edema Acute respiratory failure with hypoxia (HCC) Shock liver Hyponatremia Infection due to parainfluenza virus 3 Cardiorenal syndrome ATTESTATION Date of Service: 03/26/2018 I have seen, personally fully evaluated, and discussed patient with the [facility] ICU team. The patient is critically ill with cardiogenic shock. I spent 45 minutes (excluding time spent performing or supervising any procedures) providing and personally directing critical care services including respiratory care, pain mgt, hemodynamic monitoring and management, lab and radiology review , medication review and management, fluid and electrolyte management and coordination of care. Neuro: Neurologically intact. Sitting in bedside chair. Continue paxil. Cardiac: Remains on low dose dobutamine in a-fib. Cont anticoagulation for a fib. Will plan YESI and cardioversion today at bedside with anesthesia. Follow up PET scan results regarding myocarditis Will resume amiodarone post DCCV. Pulmonary: Wean oxygen to goal SaO2 of >92%. Incentive spirometry and pulm toilet. Renal/: Metabolic alkalosis, likely contraction alkalosis. Would continue diamox. Still likely hypervolemic. Replace magnesium and potassium with ongoing diuresis. Heme: H/H stable. Thrombocytopenia stable and improved today. Continue eliquis. Endo: IDDM. Insulin per sliding scale, lantus continue.. GI: NPO for PET. After pet scan can repeat swallow eval and replace NG tube if needed. ID: Parainfluenza, positive blood cultures, likely contaminate and UTI, treated with antibiotics and currently off all antibiotics. This patient is critically ill with dysfunction of multiple organ systems and is at risk for additional life threatening deterioration. Cont ICU care. Discussed with her. Improving but still critically ill. Hopefully out of ICU tomorrow. Staff name: Jorge A Acosta MD Date: 03/26/2018 __ Subjective: Farheen Gutierres is a 68 y.o. female. Stable night. Objective: Medications: Scheduled Meds: apixaban (ELIQUIS) tablet 5 mg 5 mg Oral BID bumetanide (BUMEX) tablet 4 mg 4 mg Oral BID(9-) digoxin (LANOXIN) injection 250 mcg 250 mcg Intravenous QDAY FENTANYL CITRATE (PF) 50 MCG/ML IJ SOLN (Cabinet Override) NOW FENTANYL CITRATE (PF) 50 MCG/ML IJ SOLN (Cabinet Override) NOW insulin aspart U-100 (NOVOLOG FLEXPEN) injection PEN 0-28 Units 0-28 Units Subcutaneous 5 X Day insulin aspart U-100 (NOVOLOG FLEXPEN) injection PEN 23 Units 23 Units Subcutaneous TID w/ meals insulin glargine (LANTUS SOLOSTAR, BASAGLAR) injection PEN 35 Units 35 Units Subcutaneous BID levothyroxine (SYNTHROID) tablet 125 mcg 125 mcg Per NG tube QDAY() lidocaine PF injection 5 mL 5 mL Inhalation ONCE MIDAZOLAM 1 MG/ML IJ SOLN (Cabinet Override) NOW MIDAZOLAM 1 MG/ML IJ SOLN (Cabinet Override) NOW nystatin (NYSTOP) topical powder Topical BID pantoprazole (PROTONIX) injection 40 mg 40 mg Intravenous QDAY PARoxetine (PAXIL) tablet 40 mg 40 mg Per NG tube QDAY potassium chloride oral solution 20 mEq 20 mEq Oral ONCE potassium chloride oral solution 40 mEq 40 mEq Per NG tube QDAY Continuous Infusions: DOBUTamine (DOBUTREX) 1,000 mg in sodium chloride 0.9% (NS) 250 mL IV drip ( std conc) 2 mcg/kg/min (03/26/18 0800) PROPOFOL 10 MG/ML IV EMUL (Cabinet Override) PRN and Respiratory Meds:acetaminophen Q4H PRN, aluminum/magnesium hydroxide Q4H PRN, carboxymethylcellulose PRN, pancrelipase 20,000 Units/ sodium bicarbonate 650 mg(#) PRN (Combination Window Installer from Rx) Vital Signs: Last Filed Vital Signs: 24 Hour Range BP: 123/52 (03/26 1200) Temp: 36.5 C (97.7 F) (03/26 1200) Pulse: 101 (03/26 1200) Respirations: 12 PER MINUTE (03/26 1200) SpO2: 94 % (03/26 1200) O2 Delivery: Nasal Cannula (05/01 1200) Weight: 98.5 kg (217 lb 2.5 oz) (03/26 0600) BP: (99-141)/(42-98) Temp: [36.5 C (97.7 F)-36.8 C (98.3 F)] Pulse: [76-121] Respirations: [8 PER MINUTE-19 PER MINUTE] SpO2: [91 %-98 %] O2 Delivery: Nasal Cannula Intensity Pain Scale 0-10 (Pain 1): (not recorded) Vitals: 03/24/18 0600 03/25/18 0500 03/26/18 0600 Weight: 105.7 kg (233 lb 0.4 oz) 103.1 kg (227 lb 4.7 oz) 98.5 kg (217 lb 2.5 oz ) Critical Care Vitals: ICP Monitoring: PA Catheter: Hemodynamics/Oxycalcs: Intake/Output Summary: (Last 24 hours) Intake/Output Summary (Last 24 hours) at 03/26/18 1235 Last data filed at 03/26/18 1200 Gross per 24 hour Intake 162.28 ml Output 6175 ml Net -6012.72 ml Physical Exam: General: No distress, appears stated age, obese Lungs: Courese bilaterally Heart: Irregularly irregular Abdomen: Obese, hernia in midline, soft Extremities: Obese, edema, 1+ pulses, IABP in place in right femoral artery Peripheral pulses 1+ pulses Artificial airway: None Ventilator/ Respiratory Therapy: No Vent weaning trial: Not applicable Drains: None Prophylaxis Review: Lines: Yes; Arterial Line; Indication: Frequent blood draws and Continuous BP monitoring; Location: Radial Central Line; Indication: Med not deliverable peripherally and Hemodynamic monitoring; Type: Internal jugular Urinary Catheter: Yes; Retain mc due to: Patient on diuretics, Need for accurate Intake and Output and Acute renal insufficiency or failure Antibiotic Usage: No VTE: Pharmacological prophylaxis; SQ Heparin Lab Review: Pertinent labs reviewed Point of Care Testing: (Last 24 hours): Glucose: (!) 132 (03/26/18 0430) POC Glucose (Download): (!) 131 (03/26/18 1035) Radiology and Other Diagnostic Procedures Review: Pertinent radiology reviewed. Jorge A Acosta MD Pager [phone] * Clare Mccarthy, DIEGO-CTE TEACHER - 03/26/2018 12:11 PM CDT Formatting of this note may be different from the original. Cardiology Progress Note Admission Date: 03/18/2018 Today's Date: 03/26/2018 LOS: 8 days Assessment & Plan Farheen Gutierres is a 68 y.o. female patient with the following problems: Principal Problem: Cardiogenic shock (HCC) Active Problems: RYAN (acute kidney injury) (HCC) HLD (hyperlipidemia) Type II diabetes mellitus (HCC) Essential hypertension Hypothyroidism PAF (paroxysmal atrial fibrillation) (HCC) Junctional bradycardia Morbid obesity with BMI of 45.0-49.9, adult (HCC) Nonischemic cardiomyopathy (HCC) Acute systolic heart failure (HCC) Pulmonary edema Acute respiratory failure with hypoxia (HCC) Shock liver Hyponatremia Infection due to parainfluenza virus 3 Cardiorenal syndrome Assessment: Newly discovered AF with RVR - normal LA size based on echo - no known history per the patient - [id number] Score 5, on Eliquis 5 mg bid Bradycardia / atrial standstill with junction/ventricular escape - rates in the 30's - while on amio, dilt and metoprolol - improved on digoxin alone for rate control Severe NICM - EF 15-20% - no hx per patient/ Acute systolic CHF - diuresis on IV bumex Hypothyroidism - TSH 6.45 with normal Free T4 on admission IDDM-II/HTN/HLD Recommendations: YESI/DCCV today with plans to resume amio post DCCV as well as anticoagulation with Eliquis. Plan to proceed with right sided dual chamber ICD prior to discharge once stable (likely later this week). Will follow along with you. Clare Mccarthy NP-C (pgr [phone]) Heart Rhythm Management (pgr [phone]) Medicare attestation Subjective: Awake and alert up to chair this am. Denies active pain. Just feels 'wiped out'. Medications Scheduled Meds: apixaban (ELIQUIS) tablet 5 mg 5 mg Oral BID bumetanide (BUMEX) tablet 4 mg 4 mg Oral BID(-) digoxin (LANOXIN) injection 250 mcg 250 mcg Intravenous QDAY FENTANYL CITRATE (PF) 50 MCG/ML IJ SOLN (Cabinet Override) NOW FENTANYL CITRATE (PF) 50 MCG/ML IJ SOLN (Cabinet Override) NOW insulin aspart U-100 (NOVOLOG FLEXPEN) injection PEN 0-28 Units 0-28 Units Subcutaneous 5 X Day insulin aspart U-100 (NOVOLOG FLEXPEN) injection PEN 23 Units 23 Units Subcutaneous TID w/ meals insulin glargine (LANTUS SOLOSTAR, BASAGLAR) injection PEN 35 Units 35 Units Subcutaneous BID levothyroxine (SYNTHROID) tablet 125 mcg 125 mcg Per NG tube QDAY(07) lidocaine PF injection 5 mL 5 mL Inhalation ONCE MIDAZOLAM 1 MG/ML IJ SOLN (Cabinet Override) NOW MIDAZOLAM 1 MG/ML IJ SOLN (Cabinet Override) NOW nystatin (NYSTOP) topical powder Topical BID pantoprazole (PROTONIX) injection 40 mg 40 mg Intravenous QDAY PARoxetine (PAXIL) tablet 40 mg 40 mg Per NG tube QDAY potassium chloride oral solution 20 mEq 20 mEq Oral ONCE potassium chloride oral solution 40 mEq 40 mEq Per NG tube QDAY Continuous Infusions: DOBUTamine (DOBUTREX) 1,000 mg in sodium chloride 0.9% (NS) 250 mL IV drip ( std conc) 2 mcg/kg/min (03/26/18 0800) PROPOFOL 10 MG/ML IV EMUL (Cabinet Override) PRN and Respiratory Meds:acetaminophen Q4H PRN, aluminum/magnesium hydroxide Q4H PRN, carboxymethylcellulose PRN, pancrelipase 20,000 Units/ sodium bicarbonate 650 mg(#) PRN (Combination Window Installer from Rx) Objective Vital Signs: Last Filed Vital Signs: 24 Hour Range BP: 120/84 (03/26 1100) Temp: 36.7 C (98 F) (03/26 09) Pulse: 113 (03/26 1100) Respirations: 8 PER MINUTE (03/26 1100) SpO2: 97 % (03/26 1100) O2 Delivery: Nasal Cannula (03/26 1100) SpO2 Pulse: 124 (03/26 1100) BP: (99-141)/(42-98) Temp: [36.6 C (97.8 F)-36.8 C (98.3 F)] Pulse: [76-121] Respirations: [8 PER MINUTE-19 PER MINUTE] SpO2: [91 %-98 %] O2 Delivery: Nasal Cannula Vitals: 03/24/18 0600 03/25/18 0500 03/26/18 06 Weight: 105.7 kg (233 lb 0.4 oz) 103.1 kg (227 lb 4.7 oz) 98.5 kg (217 lb 2.5 oz ) Intake/Output Summary: (Last 24 hours) Intake/Output Summary (Last 24 hours) at 03/26/18 1212 Last data filed at 03/26/18 1200 Gross per 24 hour Intake 162.28 ml Output 5900 ml Net -5737.72 ml Body mass index is 35.05 kg/m. Physical Exam GEN: no acute distress HEENT: nontraumatic, dressing to right neck CHEST: clear to auscultation bilaterally, no distress with O2 per nasal cannula HEART: reg rhythm, nml rate; nml S1 & S2, no S3 or S4; no rub; no murmurs EXT: 1+ non-pitting edema NEURO: A&Ox3 SKIN: warm and dry Lab Review Hematology: Lab Results Component Value Date HGB 12.8 03/26/2018 HCT 40.5 03/26/2018 PLTCT 108 03/26/2018 WBC 9.4 03/26/2018 NEUT 91 03/19/2018 ANC 14.50 03/19/2018 ALC 0.50 03/19/2018 BLANCA 5 03/19/2018 AMC 0.80 03/19/2018 ABC 0.20 03/19/2018 MCV 86.3 03/26/2018 MCHC 31.7 03/26/2018 MPV 9.6 03/26/2018 RDW 16.8 03/26/2018 , General Chemistry: Lab Results Component Value Date NA 139 03/26/2018 K 3.9 03/26/2018 CL 90 03/26/2018 GAP 7 03/26/2018 BUN 38 03/26/2018 CR 0.98 03/26/2018 GLU 132 03/26/2018 CA 10.0 03/26/2018 ALBUMIN 3.6 03/26/2018 LACTIC 1.1 03/20/2018 MG 2.1 03/26/2018 TOTBILI 0.9 03/26/2018 and Endocrine: Lab Results Component Value Date TSH 6.450 03/19/2018 Telemetry AF with rates 110's to 120's; frequent PVC's and runs of NSVT up to 4 beats in duration Joy Mccarthy APRN-BERNARDINO (pgr [phone]) * Jessika Cruz - 03/26/2018 12:06 PM CDT Physiognomist Note: Admit Date: 03/18/2018 Reason for visit: Follow up spiritual support Synopsis of visit: Physiognomist visited in the hallway with patient's , Niharika, who talked about the progress patient is making. is a farm machinery set up mechanic and talked about the importance of understanding patient's condition. seemed to be coping and appears positive about patient's progress. Physiognomist visited briefly with patient who was sitting in a chair. She talked about tests/procedures she is having today and her hope to be able to eat and drink soon. Patient expressed her hope that her situation is improving. Physiognomist listened empathically, offering support and words of encouragement. Physiognomist affirmed the strength of patient and 's relationship. Physiognomist will continue to follow for spiritual and emotional support. The spiritual care team is available as needed, 18/06, through the [employer] switchboard ([phone]). For immediate response, please page [phone]. For a response within 24 hours, please submit an order in O2 for a manager of compliance consult or call the administrative voicemail at [phone]. Please page or use consult order if patient or family requests visit. Date/Time: User: Pager: [phone] 03/26/2018 12:06 PM Jessika Cruz * Beth Ardon - 03/26/2018 11:05 AM CDT Formatting of this note may be different from the original. OCCUPATIONAL THERAPY PROGRESS NOTE Patient Name: [facility] Room/Bed: [place] [address] Admitting Diagnosis: cardiogenic shock Cardiogenic shock (HCC) Past Medical History: Diagnosis Date Essential hypertension 03/19/2018 HLD (hyperlipidemia) 03/19/2018 Hypothyroidism 03/19/2018 Morbid obesity with BMI of 45.0-49.9, adult (HCC) 03/19/2018 Nonischemic cardiomyopathy (HCC) 03/19/2018 Type II diabetes mellitus (HCC) 03/19/2018 Mobility Progressive Mobility Level: Stand Level of Assistance: Assist X2 Assistive Device: Walker Time Tolerated: 0-10 minutes Activity Limited By: Dizziness;Weakness;Fatigue Subjective Precautions: Falls;Isolation Pain / Complaints: Patient agrees to participate in therapy Objective Psychosocial Status: Willing and Cooperative to Participate Persons Present: RehabTechnician;Spouse Home Living Type of Home: House Home Layout: One Level;Stairs to Enter w/o Rails (2 steps to enter) Bathroom Shower / Tub: Tub/Shower Unit Bathroom Toilet: Standard Prior Function Level Of [place]: Independent with ADLs and functional transfers Lives With: Spouse Receives Help From: Spouse ADL's Functional Transfer Assist: Moderate Assist (x2) Functional Transfer Deficits: Steadying;Verbal Cueing;Increased Time to Complete Comment: Patient declines ADLS this date stating that she feels weak and tired due to being NPO for procedure later in day. Agreeable to trial sit to stand from chair. Patient tolerated sit to stand x 2 attempts with mod x 2. Patient able to tolerate standing for 30 seconds each time. Activity Tolerance Endurance: 2/5 Tolerates 10-20 Minutes Exercise w/Multiple Rests Comment: VSS during session Cognition Overall Cognitive Status: WFL to Adequately Complete Self Care Tasks Safely Education Persons Educated: Patient Topics: Role of OT, Goals for Therapy;ADL Compensatory Techniques Goal Formulation: With Patient Assessment Assessment: Decreased ADL Status;Decreased UE Strength;Decreased Endurance; Decreased Self-Care Trans;Decreased High-Level ADLs Goal Formulation: Patient AM-PAC 6 Clicks Daily Activity Inpatient Putting on and taking off regular lower body clothes?: Total Bathing (Including washing, rinsing, drying): A Lot Toileting, which includes using toilet, bedpan, or urinal: Total Putting on and taking off regular upper body clothing: A Little Taking care of personal grooming such as brushing teeth: A Little Eating meals?: A Little Daily Activity Raw Score: 13 Standardized (t-scale) score: 32.03 CMS 0-100% Score: 63.03 CMS G Code Modifier: CL Plan OT Frequency: 5x/week OT Plan for Next Visit: commode transfer, pull chair to sink to practice standing and grooming ADL Goals Patient Will Perform Grooming: Standing at Sink;w/ Minimum Assist Patient Will Perform Toileting: w/ Minimum Assist Functional Transfer Goals Pt Will Transfer To Bedside Commode: w/ Minimum Assist OT Discharge Recommendations OT Discharge Recommendations: Inpatient Setting, To address deficits, maximize function and improve safety. Equipment Recommendations: Too early to be determined Recommend ongoing assistance for: In and out of house, Transfers, Bed mobility, Stairs, Ambulation Therapist: Beth Ardon OTGermán/Micki [phone] Date: 03/26/2018 * Tomasa Costa, PT - 03/26/2018 10:00 AM CDT PHYSICAL THERAPY PROGRESS NOTE MOBILITY: Progressive Mobility Level: Walk in room Distance Walked (feet): 2 ft Level of Assistance: Assist X2 Assistive Device: Walker Time Tolerated: 0-10 minutes SUBJECTIVE: Significant hospital events: Reason for admission: cardiogenic shock and acute decompensated heart failure; IABP removed (03/19) Mental / Cognitive Status: Alert;Cooperative;Follows Commands Persons Present: Spouse;RehabTechnician Pain: Patient complains of pain Pain Location: Back Pain Interventions: Patient agrees to participate in therapy;Nursing staff notified of patient's pain level Comments: 1 L oxygen via nasal cannula Ambulation Assist: Independent Mobility in Community without Device Patient Owned Equipment: None Home Situation: Lives Alone Type of Home: House Entry Stairs: 1-2 Stairs In-Home Stairs: Able to Live on One Level BED MOBILITY/TRANSFERS: Bed Mobility: Supine to Sit: Moderate Assist Transfer Type: Sit to Stand Transfer: Assistance Level: To/From;Bed;Minimal Assist;of 1st person;of 2nd person (for management of lines ) Cues to technique to scoot to edge of bed. Sitting edge of bed, the patient oxygen saturation >95% on room air. With movement, patient desaturates to 87% and complaint of shortness of breath. Nasal cannula reapplied at 1 L and oxygen saturation>92%. RN notified. GAIT: Gait Distance: 2 feet Gait: Assistance Level: Minimal Assist;of 1st person;of 2nd person (contact guard assist for safety) Gait: Assistive Device: Roller Walker Gait: Descriptors: Pace: Slow;Decreased foot clearance LLE;Decreased foot clearance RLE Encouraged patient to perform seated exercises with spouse while up in chair. ASSESSMENT/PROGRESS: Assessment/Progress: Should Improve w/ Continued PT The patient continues to make slow, steady gains in regards to ambulation. However, the patient appears to be doing well with getting up to chair daily - discussed use of commode when mc and flexiseal are removed. AM-PAC 6 Clicks Basic Mobility Inpatient Turning from your back to your side while in a flat bed without using bed rails : A Little Moving from lying on your back to sitting on the side of a flatbed without using bedrails : A Lot Moving to and from a bed to a chair (including a wheelchair): A Little Standing up from a chair using your arms (e.g. wheelchair, or bedside chair): A Little To walk in hospital room: Total Climbing 3-5 steps with a railing: Total Raw Score: 13 Standardized (T-scale) Score: 33.99 Basic Mobility CMS 0-100%: 57.65 CMS G Code Modifier for Basic Mobility: CK GOALS: Goals Goal Formulation: With Patient Time For Goal Achievement: 5 days, To, 7 days Pt Will Go Supine To/From Sit: Independently Pt Will Transfer Bed/Chair: Independently Pt Will Ambulate: Greater than 200 Feet, w/ No Device, Independently Pt Will Go Up / Down Stairs: 1-2 Stairs, Independently PLAN: Plan Plan Frequency: 5 Days per Week RECOMMENDATIONS: PT Discharge Recommendations PT Discharge Recommendations: Inpatient Setting PT Plan for Next Visit: goal set with patient is to ambulate greater than 6 feet Therapist: Tomasa Costa, PT Date: 03/26/2018 * Shar Yousif MBBS - 03/26/2018 8:23 AM CDT Formatting of this note may be different from the original. Progress Note Name: Farheen Gutierres Admission Date: 03/18/2018 Admission Diagnosis: cardiogenic shock Cardiogenic shock (HCC) Principal Problem: Cardiogenic shock (HCC) Active Problems: RYAN (acute kidney injury) (HCC) HLD (hyperlipidemia) Type II diabetes mellitus (HCC) Essential hypertension Hypothyroidism PAF (paroxysmal atrial fibrillation) (HCC) Junctional bradycardia Morbid obesity with BMI of 45.0-49.9, adult (HCC) Nonischemic cardiomyopathy (HCC) Acute systolic heart failure (HCC) Pulmonary edema Acute respiratory failure with hypoxia (HCC) Shock liver Hyponatremia Infection due to parainfluenza virus 3 Cardiorenal syndrome Assessment/Plan: Farheen Gutierres is a 68 y.o. female with a history of Diabetes mellitus on insulin , Hypertension, Hyperlipidemia, Hypothyroidism, admitted for management of cardiogenic shock and acute decompensated Heart failure Acute Decompensated Heart Failure with Biventricular failure Cardiogenic shock -resolved Cardiomyopathy non ischemic Ddx- Takotsubo's, tachycardia induced - LHC on 03/18 with normal coronaries, aortic pressure 72/46, LVEDP 22, LV 71/15 , no gradient - Echo OSH 03/18 - EF 10-15%, no regional wall motion abnormalities, systolic peak pressure 32 mmHg, LA + RA dilated, mild-mod TR and mild MR - IABP placed on 03/18, removed on 03/20/18 - BNP 350 - RVP positive for parainfluenza 3 - Endomyocardial biopsy (03/19/18): No evidence of myocarditis or amyloid. Myocyte vascularization seen which is a non-specific finding and possibly suggestive of ischemia. - Echocardiogram 03/19/18 Severe global LV hypokinesis. Estimated ejection fraction 10-15%. Normal LV wall thicknesses. Severe RV hypokinesis. Septal motion consistent with RV volume overload. Severe Tricuspid regurgitation - Right heart cath (03/19/18): RA 25, RV 50/13, PA 50/28, mean 35, PCWP 25, PA saturation 65%, Cardiac output (Janay) 4.5, index 2.0 - CT chest 03/25/2018 without evidence of constrictive pericarditis, patchy consolidation representing atelectasis on on left > right, trace pleural effusion and ascites > continue Dobutamine @ 3 mg/kg/min for now > Bumetanide currently running at 0.5mg/hr, switching to bumetanide to 4 mg BID > Adding diamox given evidence of contraction alkalosis > PET CT with evidence of acute mild myocarditis over inferior wall of LV Diuretic Therapy Prior to admission dose none Given on admission Lasix gtt 5/hr Daily Dosing 03/19 Lasix gtt 20, diuril x1, 03/20 lasix gtt 20 diuril x 1, 03/21 bumetanide gtt 1/hr with bolus of 2mg and Diuril x1, bumex gtt @ 1/hr on 03/22, bumex gtt 03/23 @ 0.75 mg/hr Paroxysmal atrial Fibrillation - Unstable junctional bradycardia episode on 03/18 (while on amiodarone) at OSH s/p atropine x2 - NSR on admission with second episode of Junctional bradycardia to HR 50s on without hemodynamic instability - continued to be in NSR until 03/21/18 afternoon when she reverted back to Afib with rvr, - s/p amiodarone bolus and gtt and continues to be in afib - Heparin DCed with concerns for HIT (Ab came negative), started on eliquis > Digitalis loading 03/25, continue with 250mcg / day > continue Eliquis , avoid heparin products > YESI with DCCV today > EP consulted - appreciated recs > Tentative plan for pacemaker +/- defibrillator tomorrow ' Acute Hypoxic Respiratory Failure- extubated Pulmonary edema - continues on 1 Lpm NC GPC bacteremia Klebsiella UTI - 1/2 BCx bottle positive for Staph and 2/2 blood cx bottles positive for Strep - streptococcus is strep mitis species, and staph looking cocci are contaminant streptococci - Klebsiella bacteriuria - ID recommended 5 days completion of abx stop date 03/24/18 - follow repeat cx till final - YESI before cardioversion should help rule out any vegetations, GI Possible Shock liver vs congestive hepatopathy vs STEEN -resolved - Supportive care as above - US of abdomen03/21/18 Mild hepatomegaly. There are no usman morphologic features of cirrhosis.Mild abdominal ascites. 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 Aguero. Shar Yousif Internal Medicine / PGY-2 Pager [phone] Subjective: Farheen Gutierres is a 68 y.o. female. No overnight events. She was extubated 03/22 , no new symptoms reported today. Patient denied Chest pain, abdominal pain, changes with bowel movements or urine, weakness, dizziness, palpitations, headache and difficulty breathing. . Objective: Vital Signs: Last Filed Vital Signs: 24 Hour Range BP: 112/50 (03/26 700) Temp: 36.8 C (98.3 F) (03/260) Pulse: 85 (03/26 700) Respirations: 13 PER MINUTE (03/26 700) SpO2: 97 % (03/26 700) O2 Delivery: Nasal Cannula (03/26 700) SpO2 Pulse: 79 (03/26 700) BP: (99-141)/(42-87) Temp: [36.5 C (97.7 F)-36.8 C (98.3 F)] Pulse: [76-139] Respirations: [12 PER MINUTE-20 PER MINUTE] SpO2: [91 %-98 %] O2 Delivery: Nasal Cannula Intake/Output Summary (Last 24 hours) at 03/26/18 08 Last data filed at 03/26/18699 Gross per 24 hour Intake 532.75 ml Output 6100 ml Net -5567.25 ml PHYSICAL EXAMINATION: GENERAL: awake , alert, oriented In mild distress HEENT: Atraumatic/Normocephalic, cornea/conjunctiva clear, normal external ears and nose, no lymphadenopathy and thyroid enlargement, JVP + Lungs: crackles at lung bases Heart: irregular, tachycardic, distant heart sounds due to body habitus Abdomen: Soft, non tender, no organomegaly, bowel sounds present Neurologic: PERRL. Spontaneously moves extremities and responds to verbal and tactile stimuli. Extremities: No visible deformities, pulses palpable, + 1 edema bilaterally in the lower extremities LABS: Recent Labs 03/23/18 1612 03/24/18 0400 03/24/18 1545 03/24/18 2111 03/25/18 0255 03/25/18 1640 03/26/18 0430 NA 134* 136* 137 135* 139 138 139 K 4.1 4.0 3.9 3.8 3.7 4.1 3.9 CL 93* 92* 90* 90* 90* 90* 90* CO2 35* 39* 42* 40* 44* 44* 42* GAP 6 5 5 5 5 4 7 BUN 44* 42* 40* 40* 39* 39* 38* CR 1.08* 0.92 0.93 0.98 0.90 1.07* 0.98 GLU 172* 189* 210* 246* 73 168* 132* CA 8.7 9.0 9.3 9.4 9.8 9.9 10.0 ALBUMIN 3.3* 3.3* 3.4* -- 3.5 3.7 3.6 MG 2.0 1.8 2.1 -- 2.3 2.2 2.1 Recent Labs 03/23/18 1612 03/24/18 0400 03/24/18 1545 03/25/18 0255 03/25/18 1640 03/26/18 0430 WBC -- 8.3 -- 9.8 -- 9.4 HGB -- 11.8* -- 11.7* -- 12.8 HCT -- 35.2* -- 36.8 -- 40.5 PLTCT -- 71* -- 81* -- 108* AST 21 22 19 19 18 20 ALT 66* 60* 53 48 43 39 ALKPHOS 41 44 44 45 51 52 Estimated Creatinine Clearance: 66.9 mL/min (based on SCr of 0.98 mg/dL). Vitals: 03/24/18 0600 03/25/18 0500 03/26/18 0600 Weight: 105.7 kg (233 lb 0.4 oz) 103.1 kg (227 lb 4.7 oz) 98.5 kg (217 lb 2.5 oz ) No results for input(s): PHART, PO2ART in the last 72 hours. Invalid input(s): PC02A MEDS apixaban 5 mg Oral BID digoxin 250 mcg Intravenous QDAY insulin aspart U-100 0-28 Units Subcutaneous 5 X Day insulin aspart U-100 23 Units Subcutaneous TID w/ meals insulin glargine 35 Units Subcutaneous BID levothyroxine 125 mcg Per NG tube QDAY(07) nystatin Topical BID pantoprazole 40 mg Intravenous QDAY PARoxetine 40 mg Per NG tube QDAY potassium chloride 40 mEq Per NG tube QDAY IV MEDS bumetanide (BUMEX) 24 mg in empty IV bag 96 mL IV drip (std conc) 0.5 mg/hr (03/26/18 0400) DOBUTamine (DOBUTREX) 1,000 mg in sodium chloride 0.9% (NS) 250 mL IV drip ( std conc) 2 mcg/kg/min (03/26/18 0611) Prnacetaminophen Q4H PRN, aluminum/magnesium hydroxide Q4H PRN, carboxymethylcellulose PRN, pancrelipase 20,000 Units/ sodium bicarbonate 650 mg (#) PRN (Combination Window Installer from Rx) Associated attestation - Philippe Aguero MD - 03/26/2018 6:10 PM CDT Teaching Physician Attestation: I have personally interviewed and examined the patient, have reviewed the documentation, and agree with the assessment and plan of the resident. Please see my separate progress note from earlier today for further details on this patient's care. Philippe Aguero MD * Jany Patel RN - 03/26/2018 7:10 AM CDT Patient left the unit to PET scan with RN and transport. * Isa Hackett RN - 03/26/2018 6:24 AM CDT Formatting of this note may be different from the original. 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 Does patient understand the pathophysiology of their heart failure diagnosis? Verbalized Understanding Does the patient understand the importance of recording their weight and blood pressure readings daily in the log sheet that will be sent home with them? More Instruction Required Does the patient understand the heart failure zone sheet and when to call their HF provider or 911 depending on their symptom severity? More Instruction Required Does the patient understand the medications that they are taking for their HF and what each one of them does? More Instruction Required Does the patient understand their sodium restriction, the sodium level that they are not to exceed and why it is important to follow this restriction? More Instruction Required Is the patient able to demonstrate how to read food labels and calculate the sodium content in a container of food? More Instruction Required Does the patient know what their fluid restriction is and why it is important to follow it? More Instruction Required Does the patient still use tobacco, consume ETOH or street drugs? Do they understand the importance of cessation of these habits? More Instruction Required Does the patient know the importance of remaining active and exercising as tolerated? More Instruction Required Does the patient understand the importance of attending all HF follow-up appointments as directed by their HF provider? More Instruction Required * Jorge A Acosta MD - 03/25/2018 5:05 PM CDT Formatting of this note may be different from the original. Critical Care Progress Note Today's Date: 03/25/2018 Name: Farheen Gutierres Admission Date: 03/18/2018 LOS: 7 days Assessment/Plan: Principal Problem: Cardiogenic shock (HCC) Active Problems: RYAN (acute kidney injury) (HCC) HLD (hyperlipidemia) Type II diabetes mellitus (HCC) Essential hypertension Hypothyroidism PAF (paroxysmal atrial fibrillation) (HCC) Junctional bradycardia Morbid obesity with BMI of 45.0-49.9, adult (HCC) Nonischemic cardiomyopathy (HCC) Acute systolic heart failure (HCC) Pulmonary edema Acute respiratory failure with hypoxia (HCC) Shock liver Hyponatremia Infection due to parainfluenza virus 3 Cardiorenal syndrome ATTESTATION Date of Service: 03/25/2018 I have seen, personally fully evaluated, and discussed patient with the [facility] ICU team. The patient is critically ill with cardiogenic shock. I spent 45 minutes (excluding time spent performing or supervising any procedures) providing and personally directing critical care services including respiratory care, pain mgt, hemodynamic monitoring and management, lab and radiology review , medication review and management, fluid and electrolyte management and coordination of care. Neuro: Neurologically intact. Sitting in bedside chair. Continue paxil. Cardiac: Remains on low dose dobutamine. Remains in a-fib. Cont anticoagulation for a fib. Will plan YESI and cardioversion tomorrow. Chest CT to rule out restrictive cardiomyopathy done today and will obtain PET scan tomorrow for myocarditis work up. Holding amiodarone and metoprolol and giving digoxin today. Pulmonary: Wean oxygen to goal SaO2 of >92%. Incentive spirometry and pulm toilet. Renal/: Metabolic alkalosis, likely contraction alkalosis. Would Continue diamox. Still likely hypervolemic, if alkalosis continues to worsen may need to slow down diuresis until metabolic derangement normalize. Heme: H/H stable. Thrombocytopenia stable. 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 Continue eliquis. Endo: IDDM. Insulin per SSI. GI: Tolerating enteral feeds. NPO for PET tomorrow. After pet scan can repeat swallow eval and replace NG tube if needed. ID: Parainfluenza, positive blood cultures, likely contaminate and UTI, treated with antibiotics and currently off all antibiotics. This patient is critically ill with dysfunction of multiple organ systems and is at risk for additional life threatening deterioration. Cont ICU care. Discussed with her. Improving but still critically ill. Hopefully out of ICU tomorrow. Staff name: Jorge A Acosta MD Date: 03/25/2018 __ Subjective: Farheen Gutierres is a 68 y.o. female. Stable night. Objective: Medications: Scheduled Meds: acetaZOLAMIDE (DIAMOX) injection 500 mg 500 mg Intravenous Q8H apixaban (ELIQUIS) tablet 5 mg 5 mg Oral BID digoxin (LANOXIN) injection 250 mcg 250 mcg Intravenous Q6H [START ON 03/26/2018] digoxin (LANOXIN) injection 250 mcg 250 mcg Intravenous QDAY insulin aspart U-100 (NOVOLOG FLEXPEN) injection PEN 0-28 Units 0-28 Units Subcutaneous 5 X Day insulin aspart U-100 (NOVOLOG FLEXPEN) injection PEN 23 Units 23 Units Subcutaneous TID w/ meals insulin glargine (LANTUS SOLOSTAR, BASAGLAR) injection PEN 35 Units 35 Units Subcutaneous BID levothyroxine (SYNTHROID) tablet 125 mcg 125 mcg Per NG tube QDAY(07) nystatin (NYSTOP) topical powder Topical BID pantoprazole (PROTONIX) injection 40 mg 40 mg Intravenous QDAY PARoxetine (PAXIL) tablet 40 mg 40 mg Per NG tube QDAY potassium chloride oral solution 40 mEq 40 mEq Per NG tube QDAY Continuous Infusions: bumetanide (BUMEX) 24 mg in empty IV bag 96 mL IV drip (std conc) 0.5 mg/hr (03/25/18 0800) DOBUTamine (DOBUTREX) 1,000 mg in sodium chloride 0.9% (NS) 250 mL IV drip ( std conc) 2 mcg/kg/min (03/25/18 08) PRN and Respiratory Meds:acetaminophen Q4H PRN, aluminum/magnesium hydroxide Q4H PRN, carboxymethylcellulose PRN, pancrelipase 20,000 Units/ sodium bicarbonate 650 mg(#) PRN (Combination Window Installer from Rx) Vital Signs: Last Filed Vital Signs: 24 Hour Range BP: 106/51 (03/25 1600) Temp: 36.7 C (98 F) (03/25 1600) Pulse: 107 (03/25 1600) Respirations: 15 PER MINUTE (03/25 1600) SpO2: 93 % (03/25 1600) O2 Delivery: Nasal Cannula (03/25 1600) Weight: 103.1 kg (227 lb 4.7 oz) (03/25 0500) BP: (101-140)/(48-101) Temp: [36.4 C (97.6 F)-36.7 C (98 F)] Pulse: [94-139] Respirations: [13 PER MINUTE-25 PER MINUTE] SpO2: [93 %-99 %] O2 Delivery: Nasal Cannula Intensity Pain Scale 0-10 (Pain 1): (not recorded) Vitals: 03/23/18 0600 03/24/18 0600 03/25/18 0500 Weight: 111.1 kg (244 lb 14.9 oz) 105.7 kg (233 lb 0.4 oz) 103.1 kg (227 lb 4.7 oz) Critical Care Vitals: ICP Monitoring: PA Catheter: Hemodynamics/Oxycalcs: Intake/Output Summary: (Last 24 hours) Intake/Output Summary (Last 24 hours) at 03/25/18 1705 Last data filed at 03/25/18 1700 Gross per 24 hour Intake 1925.41 ml Output 8180 ml Net -6254.59 ml Physical Exam: General: No distress, appears stated age, obese Lungs: Courese bilaterally Heart: Irregularly irregular Abdomen: Obese, hernia in midline, soft Extremities: Obese, edema, 1+ pulses, IABP in place in right femoral artery Peripheral pulses 1+ pulses Artificial airway: None Ventilator/ Respiratory Therapy: No Vent weaning trial: Not applicable Drains: None Prophylaxis Review: Lines: Yes; Arterial Line; Indication: Frequent blood draws and Continuous BP monitoring; Location: Radial Central Line; Indication: Med not deliverable peripherally and Hemodynamic monitoring; Type: Internal jugular Urinary Catheter: Yes; Retain mc due to: Patient on diuretics, Need for accurate Intake and Output and Acute renal insufficiency or failure Antibiotic Usage: No VTE: Pharmacological prophylaxis; SQ Heparin Lab Review: Pertinent labs reviewed Point of Care Testing: (Last 24 hours): Glucose: 73 (03/25/18 0255) POC Glucose (Download): (!) 291 (03/25/18 1143) Radiology and Other Diagnostic Procedures Review: Pertinent radiology reviewed. Jorge A Acosta MD Pager [phone] * Mary Maguire RN - 03/25/2018 3:42 PM CDT Spoke with Dr. Yousif (rounding with heart failure) and would like procedural RN to add an order for DCCV along with YESI that is already ordered. * Shar Yousif MBBS - 03/25/2018 3:25 PM CDT Formatting of this note may be different from the original. Progress Note Name: Farheen Gutierres Admission Date: 03/18/2018 Admission Diagnosis: cardiogenic shock Cardiogenic shock (HCC) Principal Problem: Cardiogenic shock (HCC) Active Problems: RYAN (acute kidney injury) (HCC) HLD (hyperlipidemia) Type II diabetes mellitus (HCC) Essential hypertension Hypothyroidism PAF (paroxysmal atrial fibrillation) (HCC) Junctional bradycardia Morbid obesity with BMI of 45.0-49.9, adult (HCC) Nonischemic cardiomyopathy (HCC) Acute systolic heart failure (HCC) Pulmonary edema Acute respiratory failure with hypoxia (HCC) Shock liver Hyponatremia Infection due to parainfluenza virus 3 Assessment/Plan: Farheen Gutierres is a 68 y.o. female with a history of Diabetes mellitus on insulin , Hypertension, Hyperlipidemia, Hypothyroidism, admitted for management of cardiogenic shock and acute decompensated Heart failure Acute Decompensated Heart Failure with Biventricular failure Cardiogenic shock -resolved Cardiomyopathy non ischemic Ddx- Takotsubo's, tachycardia induced - LHC on 03/18 with normal coronaries, aortic pressure 72/46, LVEDP 22, LV 71/15 , no gradient - Echo OSH 03/18 - EF 10-15%, no regional wall motion abnormalities, systolic peak pressure 32 mmHg, LA + RA dilated, mild-mod TR and mild MR - IABP placed on 03/18, removed on 03/20/18 - BNP 350 - RVP positive for parainfluenza 3 - Endomyocardial biopsy (03/19/18): No evidence of myocarditis or amyloid. Myocyte vascularization seen which is a non-specific finding and possibly suggestive of ischemia. - Echocardiogram 03/19/18 Severe global LV hypokinesis. Estimated ejection fraction 10-15%. Normal LV wall thicknesses. Severe RV hypokinesis. Septal motion consistent with RV volume overload. Severe Tricuspid regurgitation - Right heart cath (03/19/18): RA 25, RV 50/13, PA 50/28, mean 35, PCWP 25, PA saturation 65%, Cardiac output (Janay) 4.5, index 2.0 > continue Dobutamine @ 3 mg/kg/min for now >continue bumetnaide drip at decreased rate of 0.5 mg/hr rate to unload the RV , goal Urine output 200 cc/hr ( increase to 0.75 bumex gtt if urine output decreases to <200 ml/hr) > Continue diamox due to elevated CO2 > Obtain PET CT of heart today to evaluate for myocarditis as biopsy does not completely rule out > WIll also obtain CT chest w/o contrast to evaluate for constrictive pericarditis given RHC findings Diuretic Therapy Prior to admission dose none Given on admission Lasix gtt 5/hr Daily Dosing 03/19 Lasix gtt 20, diuril x1, 03/20 lasix gtt 20 diuril x 1, 03/21 bumetanide gtt 1/hr with bolus of 2mg and Diuril x1, bumex gtt @ 1/hr on 03/22, bumex gtt 03/23 @ 0.75 mg/hr Paroxysmal atrial Fibrillation - Unstable junctional bradycardia episode on 03/18 (while on amiodarone) at OSH s/p atropine x2 - NSR on admission with second episode of Junctional bradycardia to HR 50s on without hemodynamic instability - continued to be in NSR until 03/21/18 afternoon when she reverted back to Afib with rvr, - s/p amiodarone bolus and gtt and continues to be in afib - Heparin DCed with concerns for HIT (Ab came negative), started on eliquis > Stop amiodarone and metoprolol and start digoxin, already received two doses previously, will add 2 doses of 250 mcg for today to complete her load and plan for 250 mcg qd starting tomorrow > continue Eliquis , avoid heparin products > will plan for YESI tomorrow with cardioversion ' Acute Hypoxic Respiratory Failure- extubated Pulmonary edema - continues on 1 Lpm NC Possible pneumonia GPC bacteremia Klebsiella UTI - 1/2 BCx bottle positive for Staph and 2/2 blood cx bottles positive for Strep - streptococcus is strep mitis species, and staph looking cocci are contaminant streptococci - Klebsiella bacteriuria - ID recommended 5 days completion of abx stop date 03/24/18 - follow repeat cx till final - YESI before cardioversion should help rule out any vegetations, GI Possible Shock liver vs congestive hepatopathy vs STEEN -resolved - Supportive care as above - US of abdomen03/21/18 Mild hepatomegaly. There are no usman morphologic features of cirrhosis.Mild abdominal ascites. 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 18 units BID, metformin and Januvia - 24 hour insulin requirement 195 units, 75 % ~ 150 units > Will schedule for 35 units lantus and 23 units novolog TID w/ meals, HDCF until NPO HLD - GRIP ASSEMBLER simvastatin > Continue > Lipid profile (03/19/18): total cholesterol 66, trigs 35, HDL 36, LDL 23 Fluids, Electrolytes, Nutrition: no IVF, replace prn, FLD (NPO for now until tomorrow for PET CT and YESI) Prophylaxis:NO heparin products ,Eliquis Code: full Lines:arterial line, OG tube, CVC, rectal tube, will consider removing mc's tomorrow Disposition: Continue admission to CICU ( transfer out tomorrow) Patient seen and discussed with Dr. Jones. Myles [facility] Internal Medicine / PGY-2 Pager [phone] Subjective: Farheen Gutierres is a 68 y.o. female. No overnight events. She was extubated 03/22 , no new symptoms reported today. Patient denied Chest pain, abdominal pain, changes with bowel movements or urine, weakness, dizziness, palpitations, headache and difficulty breathing. . Objective: Vital Signs: Last Filed Vital Signs: 24 Hour Range BP: 102/73 (03/25 1300) Temp: 36.5 C (97.7 F) (03/25 1200) Pulse: 121 (03/25 1300) Respirations: 18 PER MINUTE (03/25 1300) SpO2: 97 % (03/25 1300) O2 Delivery: Nasal Cannula (03/25 1200) SpO2 Pulse: 108 (03/25 1300) BP: (101-140)/(48-101) Temp: [36.4 C (97.6 F)-36.7 C (98 F)] Pulse: [94-139] Respirations: [13 PER MINUTE-25 PER MINUTE] SpO2: [95 %-99 %] O2 Delivery: Nasal Cannula Intake/Output Summary (Last 24 hours) at 03/25/18 1525 Last data filed at 03/25/18 1400 Gross per 24 hour Intake 2348.91 ml Output 7205 ml Net -4856.09 ml PHYSICAL EXAMINATION: GENERAL: awake , alert, oriented In mild distress HEENT: Atraumatic/Normocephalic, cornea/conjunctiva clear, normal external ears and nose, no lymphadenopathy and thyroid enlargement, JVP + Lungs: crackles at lung bases Heart: irregular, tachycardic, distant heart sounds due to body habitus Abdomen: Soft, non tender, no organomegaly, bowel sounds present Neurologic: PERRL. Spontaneously moves extremities and responds to verbal and tactile stimuli. Extremities: No visible deformities, pulses palpable, + 1 edema bilaterally in the lower extremities LABS: Recent Labs 03/22/18 1610 03/23/18 0402 03/23/18 1612 03/24/18 0400 03/24/18 1545 03/24/18 2111 03/25/18 0255 NA 131* 131* 134* 136* 137 135* 139 K 4.6 4.1 4.1 4.0 3.9 3.8 3.7 CL 95* 94* 93* 92* 90* 90* 90* CO2 28 29 35* 39* 42* 40* 44* GAP 8 8 6 5 5 5 5 BUN 55* 50* 44* 42* 40* 40* 39* CR 1.50* 1.28* 1.08* 0.92 0.93 0.98 0.90 GLU 155* 244* 172* 189* 210* 246* 73 CA 8.7 8.5 8.7 9.0 9.3 9.4 9.8 ALBUMIN 3.4* 3.3* 3.3* 3.3* 3.4* -- 3.5 MG 2.2 1.9 2.0 1.8 2.1 -- 2.3 Recent Labs 03/22/18 1610 03/22/18 2305 03/23/18 0402 03/23/18 0505 03/23/18 1612 03/24/18 0400 03/24/18 1545 03/25/18 0255 WBC -- -- 6.7 -- -- 8.3 -- 9.8 HGB -- -- 11.5* -- -- 11.8* -- 11.7* HCT -- -- 34.4* -- -- 35.2* -- 36.8 PLTCT -- -- 72* -- -- 71* -- 81* PTT 31.9 78.4* -- 101.5* -- -- -- -- AST 30 -- 25 -- 21 22 19 19 ALT 102* -- 77* -- 66* 60* 53 48 ALKPHOS 42 -- 43 -- 41 44 44 45 Estimated Creatinine Clearance: 74.5 mL/min (based on SCr of 0.9 mg/dL). Vitals: 03/23/18 0600 03/24/18 0600 03/25/18 0500 Weight: 111.1 kg (244 lb 14.9 oz) 105.7 kg (233 lb 0.4 oz) 103.1 kg (227 lb 4.7 oz) No results for input(s): PHART, PO2ART in the last 72 hours. Invalid input(s): PC02A MEDS acetaZOLAMIDE 500 mg Intravenous Q8H apixaban 5 mg Oral BID digoxin 250 mcg Intravenous Q6H [START ON 03/26/2018] digoxin 250 mcg Intravenous QDAY insulin aspart U-100 0-14 Units Subcutaneous 5 X Day insulin aspart U-100 23 Units Subcutaneous TID w/ meals insulin glargine 35 Units Subcutaneous BID levothyroxine 125 mcg Per NG tube QDAY(07) nystatin Topical BID pantoprazole 40 mg Intravenous QDAY PARoxetine 40 mg Per NG tube QDAY potassium chloride 40 mEq Per NG tube QDAY IV MEDS bumetanide (BUMEX) 24 mg in empty IV bag 96 mL IV drip (std conc) 0.5 mg/hr (03/25/18 0800) DOBUTamine (DOBUTREX) 1,000 mg in sodium chloride 0.9% (NS) 250 mL IV drip ( std conc) 2 mcg/kg/min (03/25/18 0800) Prnacetaminophen Q4H PRN, aluminum/magnesium hydroxide Q4H PRN, carboxymethylcellulose PRN, pancrelipase 20,000 Units/ sodium bicarbonate 650 mg (#) PRN (Combination Window Installer from Rx) Associated attestation - Philippe Aguero MD - 03/25/2018 7:30 PM CDT Teaching Physician Attestation: I have personally interviewed and examined the patient, have reviewed the documentation, and agree with the assessment and plan of the resident. Please see my separate progress note from earlier today for further details on this patient's care. Philippe Aguero MD * Philippe Aguero MD - 03/25/2018 12:02 PM CDT Teaching Physician Attestation: I have personally interviewed and examined the patient, have reviewed the documentation, and agree with the assessment and plan of the resident. She is up in the chair and feels somewhat improved. She remains in atrial fibrillation. She is being treated with digoxin. Her right ventricular biopsy showed fibrosis but no active inflammation. The cause of her acute decline and cardiomyopathy is still unclear. I do not think we have definitively ruled out myocarditis. She did have respiratory virus isolated. I think a PET scan could be helpful. She had equalization of her diastolic pressures at the time of her right heart catheterization. We need to get a chest CT scan to rule out pericardial thickening. Her HIT antibody was negative. She may need a pacemaker/AV node ablation. Will involve the EP team for their thoughts. She remains critically ill. We need to be certain that there is no blood borne infection, we will tentatively get her on for YESI cardioversion tomorrow. Philippe Aguero MD * Tiffany Moss - 03/25/2018 10:44 AM CDT SPEECH-LANGUAGE PATHOLOGY DAILY TREATMENT NOTE Patient seen 1x this date. Documentation reflects all daily treatment sessions. SUMMARY OF THERAPY SESSION: Swallow treatment completed. Oropharyngeal swallow WFL today. Pt exhibiting cough reaction with large, consecutive swallows of thin liquids, though with single, small drinks and regular solids, no s/s of aspiration noted. Diet upgrade recommended at this time. Pt provided education re: safe swallow strategies. See below for details/recommendations. RECOMMENDATIONS Upgrade to regular solids/thin liquids. -Intermittent supervision w/ PO intake, small/single bites/sips. Slow rate of intake. Dentures in place with solids. -If experiencing negative respiratory status changes or consistent s/s of aspiration, please cease PO intake. Meds in puree Ongoing speech therapy to ensure toleration of diet. Goal : Pt will participate in ongoing swallow evalution provided min cues. Met Comment: Pt's swallow assessed with regular solids and thin liquids for purpose of diet advancement. Pt exhibits cough reaction after taking large, consecutive swallows of thin liquids via straw. Instructed to take small , single drinks which resulted in no s/s of aspiration. Pt declining to put dentures in during HATCHERY MANAGER visit. Pt exhibits moderately prolonged yet thorough mastication of regular solids. No oral residue after swallow. Pt states she is able to masticate faster when her dentures in place; therefore, recommended dentures in place during meals. Discharge as met. GOAL: Pt will tolerate full liquid diet with nectar thick liquid modifier with < 10% s/s of aspiration and without negative pulmonary status changes given supervision and min cues to adhere to safe swallow strategies. Met Comment: RN and pt report good toleration of full liquid diet and nectar thick liquids. No s/s of aspiration noted at bedside with these trials. Pt observed to take large, consecutive drinks of nectar by straw without overt s/s of aspiration. No s/s of aspiration or globus sensation with pureed solids. NEW GOAL: Pt will tolerate regular solids and thin liquids with <10% s/s of aspiration and without negative pulmonary status changes provided min cues to adhere to safe swallow strategies. PLAN / RECOMMENDATIONS: Continue treatment daily. Therapist: Micki Cates/LARRY-HATCHERY MANAGER (Pager [phone]; Voalte: [phone]) Date: 03/25/2018 * Mulu Rodney, RT - 03/25/2018 9:59 AM CDT Formatting of this note may be different from the original. RESPIRATORY THERAPY ADULT PROTOCOL EVALUATION RESPIRATORY PROTOCOL PLAN Medications Note: If indicated by protocol, medication orders will be placed by therapist. Procedures PEP Therapy: Place a nursing order for "IS Q1h While Awake" for any of Lung Expansion indicators Vibrating PEP Therapy: Q4h While Awake PAP: Q4h PAP While Awake Oxygen/Humidity: O2 to keep SpO2 > 92% Monitoring: Pulse oximetry BID & PRN PATIENT EVALUATION RESULTS Chart Review * Pulmonary Hx: Smoking cessation < 8 weeks OR still smoking OR > 20 pack/yr hx (PEFR) OR occasional use of bronchodilator (AM) * Surgical Hx: General surgery (cough & sigh not affected) * Chest X-Ray: Infiltrates (AC) OR atelectasis (LE) OR pleural effusion OR rib fractures (LE) * PFT/Oxygenation: FEV1, PEFR < 70% OR Pa02 < 70 RA OR Sp02 <92% RA OR Fi02 > 0.21 to keep Sp02 > 92% OR < 24 hours post-op (02 & oxim) OR chronic C02 retention (C02) Patient Assessment * Respiratory Pattern: Regular pattern and rate OR good chest excursion with deep breathing * Breath Sounds: Diminished bilaterally (LE) OR decreased bilaterally with productive cough (AC) * Cough / Sputum: Fair cough or effort (AC) OR moderate amount sputum * Mental Status: Alert, oriented, cooperative * Activity Level: Ambulatory with assistance Priority Index Total Points: 12 Points * Priority Index: 2 PRIORITY INDEX GUIDELINES* Priority Points 1 0-9 points 2 9-18 points 3 > 18 points + Pulm Dx or Home Rx *Higher points indicate higher acuity. Therapist: Mulu Rodney, RT Date: 03/25/2018 Fall AC=Airway clearance AM=Aerosolized medication BA=Wilkin aerosol DB&C=Deep breathe & cough FEV1=Forced expiratory volume in first second) IC=Inspiratory capacity LE=Lung expansion MDI=Metered dose inhaler Neb=Nebulizer O2=Oxygen Oxim=Oximetry PEFR=Peak expiratory flow rate PRESS TENDER SMOKE SIGNAL=Rapid Response Team * Igor Tomasa, PT - 03/25/2018 9:56 AM CDT PHYSICAL THERAPY PROGRESS NOTE MOBILITY: Progressive Mobility Level: Active transfer to chair Level of Assistance: Assist X2 (2nd person for lines) Assistive Device: Walker Time Tolerated: 0-10 minutes Activity Limited By: Pain;Weakness SUBJECTIVE: Significant hospital events: Reason for admission: cardiogenic shock and acute decompensated heart failure; IABP removed (03/19) Mental / Cognitive Status: Alert;Cooperative;Follows Commands Persons Present: Occupational Therapist;Nursing Staff (Simultaneous filing. User may not have seen previous data.) Pain: Patient complains of pain Pain Location: Abdomen;Buttocks Pain Interventions: Patient agrees to participate in therapy;Nursing staff notified of patient's pain level Ambulation Assist: Independent Mobility in Community without Device Patient Owned Equipment: None Home Situation: Lives Alone Type of Home: House (Simultaneous filing. User may not have seen previous data.) Entry Stairs: 1-2 Stairs In-Home Stairs: Able to Live on One Level BED MOBILITY/TRANSFERS: At edge of bed upon arrival. Transfer Type: Sit to Stand Transfer: Assistance Level: To/From;Bed;Minimal Assist;of 1st person (2nd person for line management) Other Transfer Type: Sit to Stand Other Transfer: Assistance Level: To/From;Bed Side Chair;Minimal Assist;of 1st person;of 2nd person (for line mangement) Other Transfer: Assistive Device: Roller Walker Requires cues for appropriate technique. Minimal assist for steadying. GAIT: Gait Distance: 4-5 steps to bedside chair Gait: Assistance Level: Minimal Assist;of 1st person;of 2nd person;Management of Lines Gait: Assistive Device: Roller Walker Gait: Descriptors: Pace: Slow;Decreased foot clearance LLE;Decreased foot clearance RLE Anticipate the patient could have ambulated greater distance, but she notes "feeling unsure". EDUCATION: Education Persons Educated: Patient Patient Barriers To Learning: None Noted Teaching Methods: Verbal Instruction Patient Response: Verbalized Understanding Topics: Plan/Goals of PT Interventions ASSESSMENT/PROGRESS: Assessment/Progress Assessment/Progress: Should Improve w/ Continued PT AM-PAC 6 Clicks Basic Mobility Inpatient Turning from your back to your side while in a flat bed without using bed rails : A Little Moving from lying on your back to sitting on the side of a flatbed without using bedrails : A Little Moving to and from a bed to a chair (including a wheelchair): A Little Standing up from a chair using your arms (e.g. wheelchair, or bedside chair): A Little To walk in hospital room: A Little Climbing 3-5 steps with a railing: A Little Raw Score: 18 Standardized (T-scale) Score: 41.05 Basic Mobility CMS 0-100%: 40.47 CMS G Code Modifier for Basic Mobility: CK GOALS: Goals Goal Formulation: With Patient (Simultaneous filing. User may not have seen previous data.) Time For Goal Achievement: 5 days, To, 7 days Pt Will Go Supine To/From Sit: Independently Pt Will Transfer Bed/Chair: Independently Pt Will Ambulate: Greater than 200 Feet, w/ No Device, Independently Pt Will Go Up / Down Stairs: 1-2 Stairs, Independently PLAN: Plan Frequency: 5 Days per Week RECOMMENDATIONS: PT Discharge Recommendations: Inpatient Setting PT Plan for Next Visit: Split PT/OT sessions, would attempt ambulation next session with wheelchair follow to increase patient comfort and safety. Therapist: Tomasa Costa, PT Date: 03/25/2018 * Beth Ardon - 03/25/2018 9:28 AM CDT Formatting of this note may be different from the original. OCCUPATIONAL THERAPY PROGRESS NOTE Patient Name: Farheen Gutierres Room/Bed: HC905/01 Admitting Diagnosis: cardiogenic shock Cardiogenic shock (HCC) Past Medical History: Diagnosis Date Essential hypertension 03/19/2018 HLD (hyperlipidemia) 03/19/2018 Hypothyroidism 03/19/2018 Morbid obesity with BMI of 45.0-49.9, adult (HCC) 03/19/2018 Nonischemic cardiomyopathy (HCC) 03/19/2018 Type II diabetes mellitus (HCC) 03/19/2018 Mobility Progressive Mobility Level: Active transfer to chair Level of Assistance: Assist X2 (2nd person for lines) Assistive Device: Walker Time Tolerated: 0-10 minutes Activity Limited By: Pain;Weakness Subjective Precautions: Falls;Isolation Pain / Complaints: Patient agrees to participate in therapy Pain Location: Buttocks;Abdomen Pain Level Current: (does not rate) Objective Psychosocial Status: Willing and Cooperative to Participate Persons Present: Physical Therapist;Nursing Staff Home Living Type of Home: House Home Layout: One Level;Stairs to Enter w/o Rails (2 steps to enter) Bathroom Shower / Tub: Tub/Shower Unit Bathroom Toilet: Standard Prior Function Level Of [place]: Independent with ADLs and functional transfers Lives With: Spouse Receives Help From: Spouse ADL's Where Assessed: Chair LE Dressing Assist: Total Assist LE Dressing Deficits: Don/Doff R Sock;Don/Doff L Sock Toileting Assist: Total Assist Toileting Deficits: (mc, flexiseal) Functional Transfer Assist: Minimal Assist (stand by of second person) Functional Transfer Deficits: Steadying;Verbal Cueing;Increased Time to Complete Comment: patient seated at edge of bed upon entry. Patient able to stand and transfer to bedside chair with contact guard assist and stand by assist of second person for safety and line management. Patient unable to lift LES to manage socks while seated in chair. Activity Tolerance Endurance: 2/5 Tolerates 10-20 Minutes Exercise w/Multiple Rests Cognition Overall Cognitive Status: WFL to Adequately Complete Self Care Tasks Safely UE Strength / Tone Overall Strength / Tone: WFL Able to Perform ADL Tasks Education Persons Educated: Patient Topics: Role of OT, Goals for Therapy;ADL Compensatory Techniques Goal Formulation: With Patient Assessment Assessment: Decreased ADL Status;Decreased UE Strength;Decreased Endurance; Decreased Self-Care Trans;Decreased High-Level ADLs Goal Formulation: Patient AM-PAC 6 Clicks Daily Activity Inpatient Putting on and taking off regular lower body clothes?: Total Bathing (Including washing, rinsing, drying): A Lot Toileting, which includes using toilet, bedpan, or urinal: Total Putting on and taking off regular upper body clothing: A Little Taking care of personal grooming such as brushing teeth: A Little Eating meals?: A Little Daily Activity Raw Score: 13 Standardized (t-scale) score: 32.03 CMS 0-100% Score: 63.03 CMS G Code Modifier: CL Plan OT Frequency: 5x/week OT Plan for Next Visit: commode transfer, pull chair to sink to practice standing and grooming ADL Goals Patient Will Perform Grooming: Standing at Sink;w/ Minimum Assist Patient Will Perform Toileting: w/ Minimum Assist Functional Transfer Goals Pt Will Transfer To Bedside Commode: w/ Minimum Assist OT Discharge Recommendations OT Discharge Recommendations: Inpatient Setting, To address deficits, maximize function and improve safety. Equipment Recommendations: Too early to be determined Recommend ongoing assistance for: In and out of house, Transfers, Bed mobility, Stairs, Ambulation Therapist: Beth THOMASON [id number] Date: 03/25/2018 * Isa Hackett RN - 03/25/2018 6:51 AM CDT Formatting of this note may be different from the original. Heart Failure Nursing Progress Note Admission Date: 03/18/2018 LOS: 7 days Admission Weight: 116 kg (255 lb 11.7 oz) Most recent weights (inpatient): Vitals: 03/23/18 0600 03/24/18 0600 03/25/18 0500 Weight: 111.1 kg (244 lb 14.9 oz) 105.7 kg (233 lb 0.4 oz) 103.1 kg (227 lb 4.7 oz) Fluid restriction ordered: None Total Net loss this hospital stay:-15,918.3 Daily Assessment of Patient Stated Goals: Short Term Goal Identified by patient (Short Term=during hospitalization): To get more comfortable shelter heart failure goals identified by the patient: To go home. Does patient understand the pathophysiology of their heart failure diagnosis? Verbalized Understanding Does the patient understand the importance of recording their weight and blood pressure readings daily in the log sheet that will be sent home with them? Verbalized Understanding Does the patient understand the heart failure zone sheet and when to call their HF provider or 911 depending on their symptom severity? More Instruction Required Does the patient understand the medications that they are taking for their HF and what each one of them does? More Instruction Required Does the patient understand their sodium restriction, the sodium level that they are not to exceed and why it is important to follow this restriction? More Instruction Required Is the patient able to demonstrate how to read food labels and calculate the sodium content in a container of food? More Instruction Required Does the patient know what their fluid restriction is and why it is important to follow it? More Instruction Required Does the patient still use tobacco, consume ETOH or street drugs? Do they understand the importance of cessation of these habits? More Instruction Required Does the patient know the importance of remaining active and exercising as tolerated? More Instruction Required Does the patient understand the importance of attending all HF follow-up appointments as directed by their HF provider? Verbalized Understanding * Edwardo Rea, PT - 03/24/2018 3:30 PM CDT PHYSICAL THERAPY ASSESSMENT MOBILITY: Progressive Mobility Level: Stand Level of Assistance: Assist X2 Assistive Device: Hand Held Time Tolerated: 11-30 minutes Activity Limited By: Fatigue;Weakness SUBJECTIVE: PMH: diabetes mellitus, Hypertension, Hyperlipidemia and Hypothyroidism. Reason for admission: cardiogenic shock and acute decompensated Heart failure Mental / Cognitive Status: Alert;Cooperative;Follows Commands Persons Present: RehabTechnician Ambulation Assist: Independent Mobility in Community without Device Patient Owned Equipment: None Home Situation: Lives Alone Type of Home: House Entry Stairs: 1-2 Stairs In-Home Stairs: Able to Live on One Level Lines present: Rectal tube, urinary catheter, ICU monitoring, feeding tube ROM: Position Assessed: Supine Method: Active LE ROM: Bilateral;WFL STRENGTH: Position Assessed: Supine Gross Strength Grade: 4/5 BED MOBILITY/TRANSFERS: Supine to Sit: Standby Assist;Verbal Cues;Head of Bed Elevated;Use of Rail Sit to Supine: Minimal Assist;Verbal Cues;Bed Flat;Assist with B LE Transfer Type: Sit to/from Stand Transfer: Assistance Level: To/From;Bed Transfers: Type Of Assistance: Verbal Cues;For Balance;For Strength Deficit 3 sit to stands were completed. First two attempts required minimal assist via single hand hold for balance once standing. 3rd attempt required supervision. Patient able to stand for approximately 30 seconds at a time. Instruction for technique was provided. BALANCE: Dynamic Sitting Balance;Independent Dynamic Standing Balance;Minimal Assist Patient able to take several side steps toward the head of the bed with hand held assist. EDUCATION: Persons Educated: Patient Patient Barriers To Learning: None Noted Teaching Methods: Verbal Instruction Patient Response: Verbalized Understanding Topics: Plan/Goals of PT Interventions ASSESSMENT: Impaired Mobility Due To: Decreased Strength;Impaired Balance;Decreased Activity Tolerance Patient has potential to quickly regain independence with function. All vitals stable during this encounter. Assessment/Progress: Should Improve w/ Continued PT AM-PAC 6 Clicks Basic Mobility Inpatient Turning from your back to your side while in a flat bed without using bed rails : A Little Moving from lying on your back to sitting on the side of a flatbed without using bedrails : A Little Moving to and from a bed to a chair (including a wheelchair): A Little Standing up from a chair using your arms (e.g. wheelchair, or bedside chair): A Little To walk in hospital room: A Little Climbing 3-5 steps with a railing: A Lot Raw Score: 17 Standardized (T-scale) Score: 39.67 Basic Mobility CMS 0-100%: 43.83 CMS G Code Modifier for Basic Mobility: CK GOALS: Formulation: With Patient Time For Goal Achievement: 5 days, To, 7 days Pt Will Go Supine To/From Sit: Independently Pt Will Transfer Bed/Chair: Independently Pt Will Ambulate: Greater than 200 Feet, w/ No Device, Independently Pt Will Go Up / Down Stairs: 1-2 Stairs, Independently PT PLAN: Treatment Interventions: Mobility Training;Strengthening;Balance Activities Plan Frequency: 5 Days per Week Assess gait. Update discharge recommendations as needed. Patient has potential to quickly regain independence with function. RECOMMENDATIONS: PT Discharge Recommendations: Inpatient Setting Recommend ongoing assistance for: In and out of house;Transfers;Bed mobility; Stairs;Ambulation Therapist: Edwardo Rea, PT Date: 03/24/2018 G-Codes: Body Position [id number] Current Status: 40-59% Impairment [id number] Goal Status: 20-39% Impairment Based on above evaluation and clinical judgment. * Bravo Anaya MD - 03/24/2018 2:53 PM CDT Formatting of this note may be different from the original. Critical Care Progress Note Today's Date: 03/24/2018 Name: Farheen Gutierres Admission Date: 03/18/2018 LOS: 6 days Assessment/Plan: Principal Problem: Cardiogenic shock (HCC) Active Problems: RYAN (acute kidney injury) (HCC) HLD (hyperlipidemia) Type II diabetes mellitus (HCC) Essential hypertension Hypothyroidism PAF (paroxysmal atrial fibrillation) (HCC) Junctional bradycardia Morbid obesity with BMI of 45.0-49.9, adult (HCC) Nonischemic cardiomyopathy (HCC) Acute systolic heart failure (HCC) Pulmonary edema Acute respiratory failure with hypoxia (HCC) Shock liver Hyponatremia Infection due to parainfluenza virus 3 ATTESTATION Date of Service: 03/24/2018 I have seen, personally fully evaluated, and discussed patient with the [facility] ICU team. The patient is critically ill with cardiogenic shock. I spent 45 minutes (excluding time spent performing or supervising any procedures) providing and personally directing critical care services including respiratory care, pain mgt, hemodynamic monitoring and management, lab and radiology review , medication review and management, fluid and electrolyte management and coordination of care. Neurologically intact. Diffusely uncomfortable from being in bed. Increase activity. Remains on low dose dobutamine. Would keep for now as we continue with diuresis. BP good. Remains in a-fib. Rate control improving. Cont amiodarone. Will add low dose metoprolol for rate control. Cont anticoagulation. Would consider repeat TTE on Sunday. DCCV when euvolemic. Extubated. Breathing comfortably. Cont pulm hygiene. Creat cont to improve. Unknown baseline. Needs ongoing diuresis. Improved with switch to Bumex. Cont for now. Unclear duration of hyponatremia. Hypervolemic. Watch other lytes with diuresis. H/H stable. Worsening thrombocytopenia. Will check HIT Ab. IDDM. Insulin per SSI. Tolerating enteral feeds. LFT's improving. Cont for now. Swallow eval today. Multiple positive blood cultures and positive urine cx. Cont to follow cultures /sensitivities and adjust as needed. ID feels like only need to treat UTI for short course and that blood cx are false. This patient is critically ill with dysfunction of multiple organ systems and is at risk for additional life threatening deterioration. Cont ICU care. Discussed with her. Improving but still critically ill. Hopefully out of ICU tomorrow. Staff name: Bravo Anaya MD Date: 03/24/2018 __ Subjective: Farheen Gutierres is a 68 y.o. female. Stable night. Objective: Medications: Scheduled Meds: acetaZOLAMIDE (DIAMOX) injection 500 mg 500 mg Intravenous Q8H apixaban (ELIQUIS) tablet 5 mg 5 mg Oral BID levothyroxine (SYNTHROID) tablet 125 mcg 125 mcg Per NG tube QDAY(07) metoprolol (LOPRESSOR) injection 2.5 mg 2.5 mg Intravenous Q6H* nystatin (NYSTOP) topical powder Topical BID pantoprazole (PROTONIX) injection 40 mg 40 mg Intravenous QDAY PARoxetine (PAXIL) tablet 40 mg 40 mg Per NG tube QDAY potassium chloride oral solution 40 mEq 40 mEq Per NG tube QDAY Continuous Infusions: amiodarone (CORDARONE) 360 mg in dextrose, iso-osm 200 mL infusion 0.5 mg/ min (03/24/181199) bumetanide (BUMEX) 24 mg in empty IV bag 96 mL IV drip (std conc) 0.5 mg/hr (03/24/181199) DOBUTamine (DOBUTREX) 1,000 mg in sodium chloride 0.9% (NS) 250 mL IV drip ( std conc) 3 mcg/kg/min (03/24/18 1200) insulin regular (NOVOLIN R) 100 Units in sodium chloride 0.9% (NS) 100 mL IV drip (std conc) 8.5 Units/hr (03/24/18 0919) PRN and Respiratory Meds:acetaminophen Q4H PRN, aluminum/magnesium hydroxide Q4H PRN, carboxymethylcellulose PRN, pancrelipase 20,000 Units/ sodium bicarbonate 650 mg(#) PRN (Combination Window Installer from Rx) Vital Signs: Last Filed Vital Signs: 24 Hour Range BP: 128/89 (03/24 1400) ABP: 128/67 (03/24 1215) Temp: 36.7 C (98.1 F) (03/24 1200) Pulse: 126 (03/24 1400) Respirations: 28 PER MINUTE (03/24 1400) SpO2: 97 % (03/24 1400) O2 Delivery: Nasal Cannula (03/24 1215) Weight: 105.7 kg (233 lb 0.4 oz) (03/24 0600) BP: (103-128)/(59-89) ABP: (112-138)/(54-72) Temp: [36.4 C (97.6 F)-36.7 C (98.1 F)] Pulse: [86-127] Respirations: [14 PER MINUTE-30 PER MINUTE] SpO2: [89 %-97 %] O2 Delivery: Nasal Cannula Intensity Pain Scale 0-10 (Pain 1): (not recorded) Vitals: 03/22/18 0500 03/23/18 0600 03/24/18 0600 Weight: 113.3 kg (249 lb 12.5 oz) 111.1 kg (244 lb 14.9 oz) 105.7 kg (233 lb 0.4 oz) Critical Care Vitals: ICP Monitoring: PA Catheter: Hemodynamics/Oxycalcs: Intake/Output Summary: (Last 24 hours) Intake/Output Summary (Last 24 hours) at 03/24/18 1453 Last data filed at 03/24/18 1400 Gross per 24 hour Intake 2199.91 ml Output 6100 ml Net -3900.09 ml Physical Exam: General: No distress, appears stated age, obese Lungs: Courese bilaterally Heart: Irregularly irregular Abdomen: Obese, hernia in midline, soft Extremities: Obese, edema, 1+ pulses, IABP in place in right femoral artery Peripheral pulses 1+ pulses Artificial airway: None Ventilator/ Respiratory Therapy: No Vent weaning trial: Not applicable Drains: None Prophylaxis Review: Lines: Yes; Arterial Line; Indication: Frequent blood draws and Continuous BP monitoring; Location: Radial Central Line; Indication: Med not deliverable peripherally and Hemodynamic monitoring; Type: Internal jugular Urinary Catheter: Yes; Retain mc due to: Patient on diuretics, Need for accurate Intake and Output and Acute renal insufficiency or failure Antibiotic Usage: No VTE: Pharmacological prophylaxis; SQ Heparin Lab Review: Pertinent labs reviewed Point of Care Testing: (Last 24 hours): Glucose: (!) 189 (03/24/18 0400) POC Glucose (Download): (!) 143 (03/24/18 1406) Radiology and Other Diagnostic Procedures Review: Pertinent radiology reviewed. Bravo Anaya MD Pager [phone] * AjayTiffany - 03/24/2018 11:05 AM CDT SPEECH-LANGUAGE PATHOLOGY DAILY TREATMENT NOTE Patient seen 1x this date. Documentation reflects all daily treatment sessions. SUMMARY OF THERAPY SESSION: Swallow treatment completed. Improvement in oropharyngeal swallow noted today, though at least mild impairments persist. Vocal quality WFL. Pt with baseline cough, making it difficult to discern possible aspiration events, though appears safe with diet recommended below. Initiating PO diet conservatively. Please see below for details/recommendations. RECOMMENDATIONS Initiation full liquid diet with NECTAR thick liquid modifier -Supervision w/ PO intake, small/single bites/sips. Slow rate of intake. -If experiencing negative respiratory status changes or consistent s/s of aspiration, please cease PO intake. Meds in puree Ongoing speech therapy to ensure toleration of diet. Goal : Pt will tolerate ice chip protocol without negative pulmonary status chnages provided min cues. Met Discharge this goal as met Goal : Pt will participate in ongoing swallow evalution provided min cues. Met Comment: Pt's swallow assessed with ice chip, thin and nectar thick liquids via tsp/cup/straw/consecutive swallows, and pureed solids. No s/s of aspiration noted with ice chip or pureed solids. Pt exhibits delayed cough reaction with consecutive drinks of thin and nectar thick liquids. Unable to full discern if this was related to PO intake or baseline cough. With single drinks of nectar thick liquids, only very delayed cough noted, which was likely not related to PO intake. Discussed with RN to have low threshold for ceasing PO intake if worsening pulmonary status present. Continue to address this goal NEW GOAL: Pt will tolerate full liquid diet with nectar thick liquid modifier with <10% s/s of aspiration and without negative pulmonary status changes given supervision and min cues to adhere to safe swallow strategies. PLAN / RECOMMENDATIONS: Continue treatment daily. Therapist: Micki Cates/LARRY-HATCHERY MANAGER (Pager [phone]; Voalte: [phone]) Date: 03/24/2018 * Beth Ardon - 03/24/2018 10:29 AM CDT Formatting of this note may be different from the original. OCCUPATIONAL THERAPY ASSESSMENT NOTE Patient Name: [facility] Room/Bed: [place] [address] Admitting Diagnosis: cardiogenic shock Cardiogenic shock (HCC) Past Medical History: Diagnosis Date Essential hypertension 03/19/2018 HLD (hyperlipidemia) 03/19/2018 Hypothyroidism 03/19/2018 Morbid obesity with BMI of 45.0-49.9, adult (HCC) 03/19/2018 Nonischemic cardiomyopathy (HCC) 03/19/2018 Type II diabetes mellitus (HCC) 03/19/2018 Mobility Progressive Mobility Level: Active transfer to chair Level of Assistance: Assist X3 or more (3rd person for lines) Assistive Device: Hand Held Time Tolerated: 11-30 minutes Activity Limited By: Dizziness;Weakness Subjective Pertinent Dx per Physician: 68 y.o. female with a history of Diabetes mellitus on insulin, Hypertension, Hyperlipidemia, Hypothyroidism, admitted for management of cardiogenic shock and acute decompensated Heart failure. Extubated 03/22 Precautions: Falls;Isolation Pain / Complaints: Patient agrees to participate in therapy Pain Location: Bilateral;Leg Pain Level Current: (does not rate) Comments: Per RN, patient appropriate for therapy. At end of session patient seated in chair with total body lift sling under patient and needs in reach. Objective Psychosocial Status: Willing and Cooperative to Participate Persons Present: RehabTechnician;Nursing Staff Home Living Type of Home: House Home Layout: One Level;Stairs to Enter w/o Rails (2 steps to enter) Bathroom Shower / Tub: Tub/Shower Unit Bathroom Toilet: Standard Prior Function Level Of [place]: Independent with ADLs and functional transfers Lives With: Spouse Receives Help From: Spouse Other Function Comments: Patient states that she was independent prior but occassionally needed assist to get up from bed/chair from spouse. Patient's works and is often out of town for several days so patient is alone during the day. Patient states she was able to ambulate short distances in the home. ADL's Where Assessed: Edge of Bed Grooming Assist: Moderate Assist Grooming Deficits: Brushing Hair LE Dressing Assist: Total Assist LE Dressing Deficits: Don/Doff R Sock;Don/Doff L Sock Toileting Assist: Total Assist Toileting Deficits: (mc and flexiseal) Functional Transfer Assist: Moderate Assist (x2) Functional Transfer Deficits: Steadying;Verbal Cueing;Increased Time to Complete Comment: Patient able to move from supine to sit with mod x 2. Patient c/o dizziness initially while sitting and required min to mod assist for sitting edge of bed for 5 min. Patient able to stand with mod x 2 and pivot to chair with hand held assist. Activity Tolerance Endurance: 2/5 Tolerates 10-20 Minutes Exercise w/Multiple Rests Cognition Overall Cognitive Status: WFL to Adequately Complete Self Care Tasks Safely UE AROM Overall BUE AROM WNL: Yes UE Strength / Tone Overall Strength / Tone: Left;3/5 ;Right;WFL Able to Perform ADL Tasks Comment: reluctance to use L UE, possibly due to art line and soreness, Education Persons Educated: Patient Topics: Role of OT, Goals for Therapy Goal Formulation: With Patient Assessment Assessment: Decreased ADL Status;Decreased UE Strength;Decreased Endurance; Decreased Self-Care Trans Goal Formulation: Patient AM-PAC 6 Clicks Daily Activity Inpatient Putting on and taking off regular lower body clothes?: Total Bathing (Including washing, rinsing, drying): A Lot Toileting, which includes using toilet, bedpan, or urinal: Total Putting on and taking off regular upper body clothing: A Little Taking care of personal grooming such as brushing teeth: A Little Eating meals?: A Little Daily Activity Raw Score: 13 Standardized (t-scale) score: 32.03 CMS 0-100% Score: 63.03 CMS G Code Modifier: CL Plan OT Frequency: 5x/week OT Plan for Next Visit: ADLS in chair, transfer to commode ADL Goals Patient Will Perform Grooming: in Chair;w/ Stand By Assist Patient Will Perform Toileting: w/ Minimum Assist Functional Transfer Goals Pt Will Transfer To Bedside Commode: w/ Moderate Assist OT Discharge Recommendations OT Discharge Recommendations: Inpatient Setting, To address deficits, maximize function and improve safety. Equipment Recommendations: Too early to be determined G-Codes: Self-care G8987 Current Status: 60-79% Impairment G8988 Goal Status: 20-39% Impairment Based on above evaluation and clinical judgment. Therapist: Beth HEBERT/Micki [id number] Date: 03/24/2018 * Shivani Bustos MBBS - 03/24/2018 8:21 AM CDT Formatting of this note may be different from the original. Progress Note Name: Farheen Gutierres Admission Date: 03/18/2018 Admission Diagnosis: cardiogenic shock Cardiogenic shock (HCC) Principal Problem: Cardiogenic shock (HCC) Active Problems: RYAN (acute kidney injury) (HCC) HLD (hyperlipidemia) Type II diabetes mellitus (HCC) Essential hypertension Hypothyroidism PAF (paroxysmal atrial fibrillation) (HCC) Junctional bradycardia Morbid obesity with BMI of 45.0-49.9, adult (HCC) Nonischemic cardiomyopathy (HCC) Acute systolic heart failure (HCC) Pulmonary edema Acute respiratory failure with hypoxia (HCC) Shock liver Hyponatremia Infection due to parainfluenza virus 3 Assessment/Plan: Farheen Gutierres is a 68 y.o. female with a history of Diabetes mellitus on insulin , Hypertension, Hyperlipidemia, Hypothyroidism, admitted for management of cardiogenic shock and acute decompensated Heart failure Acute Decompensated Heart Failure with Biventricular failure Cardiogenic shock -resolved Cardiomyopathy non ischemic Ddx- Takotsubo's, tachycardia induced - LHC on 03/18 with normal coronaries, aortic pressure 72/46, LVEDP 22, LV 71/15 , no gradient - Echo OSH 03/18 - EF 10-15%, no regional wall motion abnormalities, systolic peak pressure 32 mmHg, LA + RA dilated, mild-mod TR and mild MR - IABP placed on 03/18, removed on 03/20/18 - BNP 350 - RVP positive for parainfluenza 3 - Endomyocardial biopsy (03/19/18): No evidence of myocarditis or amyloid. Myocyte vascularization seen which is a non-specific finding and possibly suggestive of ischemia. - Echocardiogram 03/19/18 Severe global LV hypokinesis. Estimated ejection fraction 10-15%. Normal LV wall thicknesses. Severe RV hypokinesis. Septal motion consistent with RV volume overload. Severe Tricuspid regurgitation - Right heart cath (03/19/18): RA 25, RV 50/13, PA 50/28, mean 35, PCWP 25, PA saturation 65%, Cardiac output (Janay) 4.5, index 2.0 > continue Dobutamine @ 3 mg/kg/min for now >continue bumetnaide drip at decreased rate of 0.5 mg/hr rate to unload the RV , goal Urine output 200 cc/hr ( increase to 0.75 bumex gtt if urine output decreases to <200 ml/hr) > diamox today due to elevated CO2 Diuretic Therapy Prior to admission dose none Given on admission Lasix gtt 5/hr Daily Dosing 03/19 Lasix gtt 20, diuril x1, 03/20 lasix gtt 20 diuril x 1, 03/21 bumetanide gtt 1/hr with bolus of 2mg and Diuril x1, bumex gtt @ 1/hr on 03/22, bumex gtt 03/23 @ 0.75 mg/hr Paroxysmal atrial Fibrillation - Unstable junctional bradycardia episode on 03/18 (while on amiodarone) at OSH s/p atropine x2 - NSR on admission with second episode of Junctional bradycardia to HR 50s on without hemodynamic instability - continued to be in NSR until 03/21/18 afternoon when she reverted back to Afib with rvr, - s/p amiodarone bolus and gtt and continues to be in afib > continue amiodarone gtt for now >stop heparin gtt due to worsening thrombocytopenia 03/24 , HIT ab sent (pending ) > continue Eliquis , avoid heparin products > continue IV metoprolol 2.5 mg Q 6 hr for rate control > will plan for cardioversion in future if continues to be in Afib ' Acute Hypoxic Respiratory Failure- extubated Pulmonary edema - continues on 2 Lpm NC Possible pneumonia GPC bacteremia Klebsiella UTI - / BCx bottle positive for Staph and 2/2 blood cx bottles positive for Strep - streptococcus is strep mitis species, and staph looking cocci are contaminant streptococci - Klebsiella bacteriuria - ID recommended 5 days completion of abx stop date 03/24/18 - follow repeat cx till final - YESI before cardioversion should help rule out any vegetations, GI Possible Shock liver vs congestive hepatopathy vs STEEN -resolved - Supportive care as above - US of abdomen03/21/18 Mild hepatomegaly. There are no usman morphologic features of cirrhosis.Mild abdominal ascites. 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 Jones. ESTELA Marroquin PGY-2 Internal Medicine [id number] Subjective: Farheen Gutierres is a 68 y.o. female. No overnight events. She was extubated 03/22 , she continues to complain of some sore throat, and back pain, and mild cough with some, her legs are not as sore today . Objective: Vital Signs: Last Filed Vital Signs: 24 Hour Range Temp: 36.5 C (97.7 F) (03/24 800) Pulse: 109 (03/24 800) Respirations: 30 PER MINUTE (03/24 800) SpO2: 97 % (03/24 800) O2 Delivery: Nasal Cannula (03/24 800) SpO2 Pulse: 119 (03/24 800) ABP: (112-133)/(54-66) Temp: [36.4 C (97.6 F)-36.7 C (98.1 F)] Pulse: [86-135] Respirations: [17 PER MINUTE-30 PER MINUTE] SpO2: [94 %-97 %] O2 Delivery: Nasal Cannula Intake/Output Summary (Last 24 hours) at 03/24/18820 Last data filed at 03/24/18799 Gross per 24 hour Intake 2558.95 ml Output 7475 ml Net -4916.05 ml PHYSICAL EXAMINATION: GENERAL: awake , alert, oriented In mild distress HEENT: Atraumatic/Normocephalic, cornea/conjunctiva clear, normal external ears and nose, no lymphadenopathy and thyroid enlargement, JVP + Lungs: crackles at lung bases Heart: irregular, tachycardic, distant heart sounds due to body habitus Abdomen: Soft, non tender, no organomegaly, bowel sounds present Neurologic: PERRL. Spontaneously moves extremities and responds to verbal and tactile stimuli. Extremities: No visible deformities, pulses palpable, + 1 edema bilaterally in the lower extremities LABS: Recent Labs 03/21/18 1308 03/21/18200003/22/18 0500 03/22/18 1054 03/22/18 1610 03/23/18 0402 03/23/18 1612 03/24/18 0400 NA 128* 129* 128* 130* 131* 131* 134* 136* K 4.6 4.2 4.3 4.6 4.6 4.1 4.1 4.0 CL 94* 94* 94* 94* 95* 94* 93* 92* CO2 25 23 26 27 28 29 35* 39* GAP 9 12 8 9 8 8 6 5 BUN 52* 49* 51* 51* 55* 50* 44* 42* CR 1.83* 1.66* 1.49* 1.54* 1.50* 1.28* 1.08* 0.92 GLU 142* 139* 155* 131* 155* 244* 172* 189* CA 8.6 8.8 8.7 8.6 8.7 8.5 8.7 9.0 ALBUMIN 3.4* 3.2* 3.2* -- 3.4* 3.3* 3.3* 3.3* MG 2.0 2.1 1.9 2.6 2.2 1.9 2.0 1.8 Recent Labs 03/21/18 1308 03/21/18 2001 03/22/18 0300 03/22/18 0500 03/22/18 1054 03/22/18 1610 03/22/18 2305 03/23/18 0402 03/23/18 0505 03/23/18 1612 03/24/18 0400 WBC -- -- -- 11.3* -- -- -- 6.7 -- -- 8.3 HGB -- -- -- 11.4* -- -- -- 11.5* -- -- 11.8* HCT -- -- -- 34.8* -- -- -- 34.4* -- -- 35.2* PLTCT -- -- -- 90* -- -- -- 72* -- -- 71* PTT -- -- 129.6* -- 139.7* 31.9 78.4* -- 101.5* -- -- AST 53* 43* -- 37 -- 30 -- 25 -- 21 22 ALT 164* 130* -- 111* -- 102* -- 77* -- 66* 60* ALKPHOS 40 39 -- 38 -- 42 -- 43 -- 41 44 Estimated Creatinine Clearance: 74 mL/min (based on SCr of 0.92 mg/dL). Vitals: 03/22/18 0500 03/23/18 0600 03/24/18 06 Weight: 113.3 kg (249 lb 12.5 oz) 111.1 kg (244 lb 14.9 oz) 105.7 kg (233 lb 0.4 oz) Recent Labs 03/22/18 0500 03/22/18 0940 PHART 7.39 7.34* PO2ART 89 104* MEDS apixaban 5 mg Oral BID levothyroxine 125 mcg Per NG tube QDAY(07) magnesium sulfate 1 g Intravenous Q1H X 2DO metoprolol 2.5 mg Intravenous Q6H* nystatin Topical BID pantoprazole 40 mg Intravenous QDAY PARoxetine 40 mg Per NG tube QDAY potassium chloride 40 mEq Per NG tube QDAY IV MEDS amiodarone (CORDARONE) 360 mg in dextrose, iso-osm 200 mL infusion 0.5 mg/ min (03/24/18 08) bumetanide (BUMEX) 24 mg in empty IV bag 96 mL IV drip (std conc) 0.5 mg/hr (03/24/18 08) DOBUTamine (DOBUTREX) 1,000 mg in sodium chloride 0.9% (NS) 250 mL IV drip ( std conc) 3 mcg/kg/min (03/24/18 08) insulin regular (NOVOLIN R) 100 Units in sodium chloride 0.9% (NS) 100 mL IV drip (std conc) 7 Units/hr (03/24/18 0712) Prnacetaminophen Q4H PRN, aluminum/magnesium hydroxide Q4H PRN, carboxymethylcellulose PRN, pancrelipase 20,000 Units/ sodium bicarbonate 650 mg (#) PRN (Combination Window Installer from Rx) Associated attestation - Alem Jones MD - 03/24/2018 12:57 PM CDT Staff Physician Attestation: I have personally interviewed and examined the patient, have reviewed the EMR & all pertinent medical documentation, and agree with the assessment & plan as outlined by the resident. Brandon Jones M.D. Patient continues to make good progress. Reasonable diuresis yesterday, 7. 5 L urine output, negative balance 4.8, 12 L since admission. She remains on a Bumex drip, goal 200 cc/h today. Feels incredibly weak but otherwise voices no specific complaints beyond muscular skeletal pain, back. Exam unchanged Assessment 1. Persistent atrial fibrillation, has remained in A. fib for 72 hours, rates have been challenging to control, amiodarone and IV metoprolol for now, room to escalate IV metoprolol 2. Cardiogenic shock, resolved. Etiology of LV dysfunction still not clear, LHC normal at [place], biopsy here negative 3. 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 Echocardiograms have consistently shown dilated RV, overfilled, anticipate improvement with our aggressive diuresis 4. AK I, resolved with diuresis, cardiorenal 5. Morbid obesity 6. Deconditioning Plan 1. We will try to mobilize, up to chair today 2. Continue tube feeds until speech therapy clears for swallow, hopefully today 3. Continue IV Bumex drip for 1-2 days more 4. Amiodarone and metoprolol for rate control, anticipate cardioversion Sunday or Sunday with probable ongoing amiodarone at discharge to maintain sinus rhythm. Eliquis for AC 5. Hit antibody for stable thrombocytopenia, negative * Chasity Lobo, TREVOR - 03/24/2018 6:15 AM CDT Formatting of this note may be different from the original. 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 Verbalized Understanding Does the patient understand the importance of recording their weight and blood pressure readings daily in the log sheet that will be sent home with them? Verbalized Understanding Does the patient understand the heart failure zone sheet and when to call their HF provider or 911 depending on their symptom severity? More Instruction Required Does the patient understand the medications that they are taking for their HF and what each one of them does? More Instruction Required Does the patient understand their sodium restriction, the sodium level that they are not to exceed and why it is important to follow this restriction? Unable to Demonstrate Understanding Is the patient able to demonstrate how to read food labels and calculate the sodium content in a container of food? More Instruction Required Does the patient know what their fluid restriction is and why it is important to follow it? More Instruction Required Does the patient still use tobacco, consume ETOH or street drugs? Do they understand the importance of cessation of these habits? Verbalized Understanding Does the patient know the importance of remaining active and exercising as tolerated? Verbalized Understanding Does the patient understand the importance of attending all HF follow-up appointments as directed by their HF provider? Verbalized Understanding * Bravo Anaya MD - 03/23/2018 4:23 PM CDT Formatting of this note may be different from the original. Critical Care Progress Note Today's Date: 03/23/2018 Name: Farheen Gutierres Admission Date: 03/18/2018 LOS: 5 days Assessment/Plan: Principal Problem: Cardiogenic shock (HCC) Active Problems: RYAN (acute kidney injury) (HCC) HLD (hyperlipidemia) Type II diabetes mellitus (HCC) Essential hypertension Hypothyroidism PAF (paroxysmal atrial fibrillation) (HCC) Junctional bradycardia Morbid obesity with BMI of 45.0-49.9, adult (HCC) Nonischemic cardiomyopathy (HCC) Acute systolic heart failure (HCC) Pulmonary edema Acute respiratory failure with hypoxia (HCC) Shock liver Hyponatremia Infection due to parainfluenza virus 3 ATTESTATION Date of Service: 03/23/2018 I have seen, personally fully evaluated, and discussed patient with the [facility] ICU team. The patient is critically ill with cardiogenic shock. I spent 45 minutes (excluding time spent performing or supervising any procedures) providing and personally directing critical care services including respiratory care, pain mgt, hemodynamic monitoring and management, lab and radiology review , medication review and management, fluid and electrolyte management and coordination of care. Neurologically intact. Diffusely uncomfortable from being in bed. Will attempt mobilization. Remains on low dose dobutamine. Would keep for now as we continue with diuresis. BP good. Remains in a-fib with poorly controlled ventricular rate. Cont amiodarone. She has been in SR as recently as 48 hrs ago. Monitor. Would repeat TTE on Sunday. Extubated yesterday. Breathing comfortably. Cont pulm hygiene. Creat cont to improve. Unknown baseline. Needs ongoing diuresis. Improved with switch to Bumex. Cont for now. Unclear duration of hyponatremia. Hypervolemic. Watch other lytes with diuresis. H/H stable. Worsening thrombocytopenia. Will check HIT Ab. IDDM. Insulin per SSI. Tolerating enteral feeds. LFT's improving. Cont for now. Multiple positive blood cultures and positive urine cx. Cont to follow cultures /sensitivities and adjust as needed. Consider ID evaluation. This patient is critically ill with dysfunction of multiple organ systems and is at risk for additional life threatening deterioration. Cont ICU care. Discussed with her and her . Improving but still critically ill. Staff name: Bravo Anaya MD Date: 03/23/2018 __ Subjective: Farheen Gutierres is a 68 y.o. female. Stable night. Objective: Medications: Scheduled Meds: apixaban (ELIQUIS) tablet 5 mg 5 mg Oral BID cefepime (MAXIPIME) 2 g/100 ml iso-osmotic IVPB 2 g Intravenous Q24H* levothyroxine (SYNTHROID) tablet 125 mcg 125 mcg Per NG tube QDAY() metoprolol (LOPRESSOR) injection 2.5 mg 2.5 mg Intravenous Q6H* nystatin (NYSTOP) topical powder Topical BID pantoprazole (PROTONIX) injection 40 mg 40 mg Intravenous BID(-) PARoxetine (PAXIL) tablet 40 mg 40 mg Per NG tube QDAY potassium chloride oral solution 40 mEq 40 mEq Per NG tube QDAY Continuous Infusions: amiodarone (CORDARONE) 360 mg in dextrose, iso-osm 200 mL infusion 0.5 mg/ min (03/23/18 1600) bumetanide (BUMEX) 24 mg in empty IV bag 96 mL IV drip (std conc) 0.5 mg/hr (03/23/18 1600) DOBUTamine (DOBUTREX) 1,000 mg in sodium chloride 0.9% (NS) 250 mL IV drip ( std conc) 3 mcg/kg/min (03/23/18 1600) insulin regular (NOVOLIN R) 100 Units in sodium chloride 0.9% (NS) 100 mL IV drip (std conc) 5 Units/hr (03/23/18 1514) PRN and Respiratory Meds:acetaminophen Q4H PRN, aluminum/magnesium hydroxide Q4H PRN, carboxymethylcellulose PRN, pancrelipase 20,000 Units/ sodium bicarbonate 650 mg(#) PRN (Combination Window Installer from Rx) Vital Signs: Last Filed Vital Signs: 24 Hour Range ABP: 122/65 (03/23 1600) Temp: 36.6 C (97.8 F) (03/23 1600) Pulse: 111 (03/23 1600) Respirations: 19 PER MINUTE (03/23 1600) SpO2: 96 % (03/23 1600) O2 Delivery: Nasal Cannula (03/23 1600) Weight: 111.1 kg (244 lb 14.9 oz) (03/23 06) ABP: (103-142)/(52-71) Temp: [36.4 C (97.6 F)-37.1 C (98.7 F)] Pulse: [108-157] Respirations: [8 PER MINUTE-28 PER MINUTE] SpO2: [94 %-96 %] O2 Delivery: Nasal Cannula Intensity Pain Scale 0-10 (Pain 1): (not recorded) Vitals: 03/21/18 1124 03/22/18 0500 03/23/18 0600 Weight: 115 kg (253 lb 8.5 oz) 113.3 kg (249 lb 12.5 oz) 111.1 kg (244 lb 14.9 oz) Critical Care Vitals: ICP Monitoring: PA Catheter: Hemodynamics/Oxycalcs: Intake/Output Summary: (Last 24 hours) Intake/Output Summary (Last 24 hours) at 03/23/18 1623 Last data filed at 03/23/18 1600 Gross per 24 hour Intake 3354.41 ml Output 7515 ml Net -4160.59 ml Physical Exam: General: No distress, appears stated age, obese Lungs: Courese bilaterally Heart: Irregularly irregular Abdomen: Obese, hernia in midline, soft Extremities: Obese, edema, 1+ pulses, IABP in place in right femoral artery Peripheral pulses 1+ pulses Artificial airway: None Ventilator/ Respiratory Therapy: No Vent weaning trial: Not applicable Drains: None Prophylaxis Review: Lines: Yes; Arterial Line; Indication: Frequent blood draws and Continuous BP monitoring; Location: Radial Central Line; Indication: Med not deliverable peripherally and Hemodynamic monitoring; Type: Internal jugular Urinary Catheter: Yes; Retain mc due to: Patient on diuretics, Need for accurate Intake and Output and Acute renal insufficiency or failure Antibiotic Usage: No VTE: Pharmacological prophylaxis; SQ Heparin Lab Review: Pertinent labs reviewed Point of Care Testing: (Last 24 hours): Glucose: (!) 244 (03/23/18 0402) POC Glucose (Download): (!) 155 (03/23/18 1609) Radiology and Other Diagnostic Procedures Review: Pertinent radiology reviewed. Bravo Anaya MD Pager [phone] * Patti Singh RN - 03/23/2018 3:20 PM CDT Tiffany with Speech notified by this RN to discuss reevaluation to possibly advance diet. Speech unable to see patient today. Will attempt to see patient tomorrow and will be put as a priority for Sunday if unable to be seen tomorrow. * Shivani Bustos MBBS - 03/23/2018 11:29 AM CDT Formatting of this note may be different from the original. Progress Note Name: Farheen Gutierres Admission Date: 03/18/2018 Admission Diagnosis: cardiogenic shock Cardiogenic shock (HCC) Principal Problem: Cardiogenic shock (HCC) Active Problems: RYAN (acute kidney injury) (HCC) HLD (hyperlipidemia) Type II diabetes mellitus (HCC) Essential hypertension Hypothyroidism PAF (paroxysmal atrial fibrillation) (HCC) Junctional bradycardia Morbid obesity with BMI of 45.0-49.9, adult (HCC) Nonischemic cardiomyopathy (HCC) Acute systolic heart failure (HCC) Pulmonary edema Acute respiratory failure with hypoxia (HCC) Shock liver Hyponatremia Infection due to parainfluenza virus 3 Assessment/Plan: Farheen Gutierres is a 68 y.o. female with a history of Diabetes mellitus on insulin , Hypertension, Hyperlipidemia, Hypothyroidism, admitted for management of cardiogenic shock and acute decompensated Heart failure Acute Decompensated Heart Failure with Biventricular failure Cardiogenic shock - improving,off pressors and intra aortic balloon pump ( continues to be on low dose of dobutamine to assist diuresis) Cardiomyopathy non ischemic Ddx- Takotsubo's, tachycardia induced - LHC on 03/18 with normal coronaries, aortic pressure 72/46, LVEDP 22, LV 71/15 , no gradient - Echo OSH 03/18 - EF 10-15%, no regional wall motion abnormalities, systolic peak pressure 32 mmHg, LA + RA dilated, mild-mod TR and mild MR - IABP placed on 03/18, removed on 03/20/18 - BNP 350 - RVP positive for parainfluenza 3 - Endomyocardial biopsy (03/19/18): No evidence of myocarditis or amyloid. Myocyte vascularization seen which is a non-specific finding and possibly suggestive of ischemia. - Echocardiogram 03/19/18 Severe global LV hypokinesis. Estimated ejection fraction 10-15%. Normal LV wall thicknesses. Severe RV hypokinesis. Septal motion consistent with RV volume overload. Severe Tricuspid regurgitation - Right heart cath (03/19/18): RA 25, RV 50/13, PA 50/28, mean 35, PCWP 25, PA saturation 65%, Cardiac output (Janay) 4.5, index 2.0 > continue Dobutamine @ 3 mg/kg/min for now >Decrease bumetnaide drip to 0.75 mg/hr rate to unload the RV, goal Urine output 150 -200 cc/hr Diuretic Therapy Prior to admission dose none Given on admission Lasix gtt 5/hr Daily Dosing 03/19 Lasix gtt 20, diuril x1, 03/20 lasix gtt 20 diuril x 1, 03/21 bumetanide gtt 1/hr with bolus of 2mg and Diuril x1, bumex gtt @ 1/hr on 03/22, bumex gtt 03/23 @ 0.75 mg/hr Paroxysmal atrial Fibrillation - Unstable junctional bradycardia episode on 03/18 (while on amiodarone) at OSH s/p atropine x2 - NSR on admission with second episode of Junctional bradycardia to HR 50s on without hemodynamic instability - continued to be in NSR until 03/21/18 afternoon when she reverted back to Afib with rvr, - s/p amiodarone bolus and gtt and continues to be in afib > continue amiodarone gtt for now >stop heparin gtt due to worsening thrombocytopenia , send HIT ab and start Eliquis today, avoid heparin products > will plan for cardioversion in future if continues to be in Afib ' Acute Hypoxic Respiratory Failure- extubated Pulmonary edema - continues on 2 Lpm NC Possible pneumonia GPC bacteremia Klebsiella UTI - 1/2 BCx bottle positive for Staph and 2/2 blood cx bottles positive for Strep (appears to be Strep mitis species, a possible contaminant) - continue vancomycin and cefepime until further speciation and sensitivities data - repeat Cultures sent - ID consulted , await recs GI Possible Shock liver vs congestive hepatopathy vs STEEN - Improving - Supportive care as above - US of abdomen03/21/18 Mild hepatomegaly. There are no usman morphologic features of cirrhosis.Mild abdominal ascites. 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 Jones. ESTELA Marroquin PGY-2 Internal Medicine [id number] Subjective: Farheen Gutierres is a 68 y.o. female. No overnight events. She was extubated yesterday, she continues to complain of some sore throat, leg pain and back pain , and mild cough . Objective: Vital Signs: Last Filed Vital Signs: 24 Hour Range Temp: 37.1 C (98.7 F) (03/23 0800) Pulse: 122 (03/23 1100) Respirations: 17 PER MINUTE (03/23 1100) SpO2: 95 % (03/23 1100) O2 Delivery: Nasal Cannula (03/23 1100) SpO2 Pulse: 124 (03/23 1100) ABP: (92-142)/(51-71) Temp: [36.4 C (97.6 F)-37.1 C (98.7 F)] Pulse: [102-157] Respirations: [8 PER MINUTE-27 PER MINUTE] SpO2: [94 %-100 %] O2 Delivery: Nasal Cannula Intake/Output Summary (Last 24 hours) at 03/23/18 1129 Last data filed at 03/23/18 1100 Gross per 24 hour Intake 2869.29 ml Output 6366 ml Net -3496.71 ml PHYSICAL EXAMINATION: GENERAL: awake , alert, oriented In mild distress HEENT: Atraumatic/Normocephalic, no obvious deformities, cornea/conjunctiva clear, normal external ears and nose, no lymphadenopathy and thyroid enlargement , JVP + Lungs: crackles at lung bases Heart: irregular, tachycardic, distant heart sounds due to body habitus Abdomen: Soft, non tender, no organomegaly, bowel sounds present Neurologic: PERRL. Spontaneously moves extremities and responds to verbal and tactile stimuli. Extremities: No visible deformities, pulses palpable, trace edema bilaterally in the lower extremities LABS: Recent Labs 03/20/18 1205 03/20/18200903/21/18 0410 03/21/18 1308 03/21/18200003/22/18 0500 03/22/18 1054 03/22/18 1610 03/23/18 0402 NA 126* 126* 125* 128* 129* 128* 130* 131* 131* K 4.2 4.1 4.1 4.6 4.2 4.3 4.6 4.6 4.1 CL 94* 94* 92* 94* 94* 94* 94* 95* 94* CO2 23 22 24 25 23 26 27 28 29 GAP 9 10 9 9 12 8 9 8 8 BUN 45* 49* 48* 52* 49* 51* 51* 55* 50* CR 1.64* 1.63* 1.88* 1.83* 1.66* 1.49* 1.54* 1.50* 1.28* GLU 261* 137* 208* 142* 139* 155* 131* 155* 244* CA 8.3* 8.5 8.8 8.6 8.8 8.7 8.6 8.7 8.5 ALBUMIN 3.2* 3.3* 3.2* 3.4* 3.2* 3.2* -- 3.4* 3.3* MG 2.0 2.0 2.0 2.0 2.1 1.9 2.6 2.2 1.9 Recent Labs 03/20/18 1205 03/20/18200903/21/18 0410 03/21/18 0646 03/21/18 1308 03/21/18200003/22/18 0300 03/22/18 0500 03/22/18 1054 03/22/18 1610 03/22/18 2305 03/23/18 0402 03/23/18 0505 WBC -- -- 11.8* -- -- -- -- 11.3* -- -- -- 6.7 - - HGB -- -- 11.5* -- -- -- -- 11.4* -- -- -- 11.5* -- HCT -- -- 35.6* -- -- -- -- 34.8* -- -- -- 34.4* -- PLTCT -- -- 94* -- -- -- -- 90* -- -- -- 72* -- PTT -- -- -- 74.2* -- -- 129.6* -- 139.7* 31.9 78.4* - - 101.5* AST 82* 72* 60* -- 53* 43* -- 37 -- 30 -- 25 -- ALT 240* 209* 176* -- 164* 130* -- 111* -- 102* -- 77* -- ALKPHOS 41 38 41 -- 40 39 -- 38 -- 42 -- 43 -- Estimated Creatinine Clearance: 54.6 mL/min (A) (based on SCr of 1.28 mg/dL (H)) . Vitals: 03/21/18 1124 03/22/18 0500 03/23/18 0600 Weight: 115 kg (253 lb 8.5 oz) 113.3 kg (249 lb 12.5 oz) 111.1 kg (244 lb 14.9 oz) Recent Labs 03/22/18 0500 03/22/18 0940 PHART 7.39 7.34* PO2ART 89 104* MEDS apixaban 5 mg Oral BID cefepime (MAXIPIME) IVPB 2 g Intravenous Q24H* levothyroxine 125 mcg Per NG tube QDAY() metoprolol 2.5 mg Intravenous Q6H* nystatin Topical BID pantoprazole 40 mg Intravenous BID(-) PARoxetine 40 mg Per NG tube QDAY potassium chloride 40 mEq Per NG tube QDAY vancomycin IVPB 1,500 mg Intravenous Q24H* And vancomycin, pharmacy to manage 1 each Service Per Pharmacy IV MEDS amiodarone (CORDARONE) 360 mg in dextrose, iso-osm 200 mL infusion 0.5 mg/ min (03/23/18 0818) bumetanide (BUMEX) 24 mg in empty IV bag 96 mL IV drip (std conc) 0.75 mg/ hr (03/23/18 1119) DOBUTamine (DOBUTREX) 1,000 mg in sodium chloride 0.9% (NS) 250 mL IV drip ( std conc) 3 mcg/kg/min (03/23/18 0800) insulin regular (NOVOLIN R) 100 Units in sodium chloride 0.9% (NS) 100 mL IV drip (std conc) 7 Units/hr (03/23/18 1100) Prnacetaminophen Q4H PRN, aluminum/magnesium hydroxide Q4H PRN, carboxymethylcellulose PRN, pancrelipase 20,000 Units/ sodium bicarbonate 650 mg (#) PRN (Combination Window Installer from Rx) Associated attestation - Alem Jones MD - 03/23/2018 3:43 PM CDT Staff Physician Attestation: I have personally interviewed and examined the patient, have reviewed the EMR & all pertinent medical documentation, and agree with the assessment & plan as outlined by the resident. Brandon Jones M.D Patient feeling well today. Very weak. Able to converse much easier today, voice stronger. Still needs to work with speech therapy to determine ability to swallow. Dobbhoff remains in place at this time. Enteral feedings continue. Worsening of her thrombocytopenia. We have sent a HIT antibody. Heparin stopped. We transition to Eliquis for CVA prophylaxis with her atrial fibrillation. Ventricular rates still not at goal. She remains on amiodarone and as needed metoprolol. Her pressures remain stable. Urine output remains brisk on a Bumex drip. Her renal function continues to improve. Bumex reduced slightly today after 5.5 L urine output yesterday. We will try to mobilize the patient over the next 1-2 days, physical therapy has been consulted This patient remains critically ill. I spent 35 minutes in directing her care today.. We will discontinue arterial line tomorrow. * Bravo Anaya MD - 03/22/2018 10:31 PM CDT Formatting of this note may be different from the original. Critical Care Progress Note Today's Date: 03/22/2018 Name: Farheen Gutierres Admission Date: 03/18/2018 LOS: 4 days Assessment/Plan: Principal Problem: Cardiogenic shock (HCC) Active Problems: RYAN (acute kidney injury) (HCC) HLD (hyperlipidemia) Type II diabetes mellitus (HCC) Essential hypertension Hypothyroidism PAF (paroxysmal atrial fibrillation) (HCC) Junctional bradycardia Morbid obesity with BMI of 45.0-49.9, adult (HCC) Nonischemic cardiomyopathy (HCC) Acute systolic heart failure (HCC) Pulmonary edema Acute respiratory failure with hypoxia (HCC) Shock liver Hyponatremia Infection due to parainfluenza virus 3 ATTESTATION Date of Service: 03/22/2018 I have seen, personally fully evaluated, and discussed patient with the [facility] ICU team. The patient is critically ill with cardiogenic shock. I spent 45 minutes (excluding time spent performing or supervising any procedures) providing and personally directing critical care services including ventilator management, pain mgt, hemodynamic monitoring and management, lab and radiology review, medication review and management, fluid and electrolyte management and coordination of care. Sedation off for extubation today. Denies pain. Remains in cardiogenic shock but improving. Unclear etiology. Endomyocardial bx unremarkable. Cont dobutamine but wean to 3 today. Biventricular dysfunction without significant LV dilation. Coronaries clean at OSH. Remains in a-fib. Cont amio and heparin. Overall hemodynamics are surprisingly stable. D/c PAC. Arrived intubated. Pulm edema somewhat improved. Extubated without incident today. Breathing comfortably. Cont pulm hygiene. Creat cont to improve. Unknown baseline. Needs ongoing diuresis. Improved with switch to Bumex. Unclear duration of hyponatremia. Hypervolemic. Watch other lytes with diuresis. H/H stable. IV heparin for for a-fib. No signs of bleeding. IDDM. Cont insulin gtt for now. NPO while intubated. Corpak placed and enteral feeds started. Transaminitis likely from cardiogenic shock. Monitor closely. Multiple positive blood cultures and positive urine cx. Cont to follow cultures /sensitivities and adjust as needed. This patient is critically ill with dysfunction of multiple organ systems and is at risk for additional life threatening deterioration. Cont ICU care. Discussed with throughout the day. Guarded prognosis, but improving. Staff name: Bravo Anaya MD Date: 03/22/2018 __ Subjective: Farheen Gutierres is a 68 y.o. female. Stable night. Objective: Medications: Scheduled Meds: cefepime (MAXIPIME) 2 g/100 ml iso-osmotic IVPB 2 g Intravenous Q24H* chlorhexidine gluconate (PERIDEX) 0.12 % solution 15 mL 15 mL Swish & Spit BID(8 -) digoxin (LANOXIN) injection 250 mcg 250 mcg Intravenous Q6H* levothyroxine (SYNTHROID) tablet 125 mcg 125 mcg Per NG tube QDAY() nystatin (NYSTOP) topical powder Topical BID pantoprazole (PROTONIX) injection 40 mg 40 mg Intravenous BID(10-16) PARoxetine (PAXIL) tablet 40 mg 40 mg Per NG tube QDAY [START ON 03/23/2018] potassium chloride oral solution 40 mEq 40 mEq Per NG tube QDAY [START ON 03/23/2018] vancomycin (VANCOCIN) 1,500 mg in dextrose 5% (D5W) IVPB 1, 500 mg Intravenous Q24H* And vancomycin, pharmacy to manage 1 each Service Per Pharmacy Continuous Infusions: amiodarone (CORDARONE) 360 mg in dextrose, iso-osm 200 mL infusion 0.5 mg/ min (03/22/181999) bumetanide (BUMEX) 24 mg in empty IV bag 96 mL IV drip (std conc) 1 mg/hr ( 03/22/181999) DOBUTamine (DOBUTREX) 1,000 mg in sodium chloride 0.9% (NS) 250 mL IV drip ( std conc) 3 mcg/kg/min (03/22/181999) fentaNYL citrate PF (SUBLIMAZE) 1,000 mcg in dextrose 5% (D5W) infusion ( std conc) Stopped (03/22/18 110) heparin (porcine) 20,000 Units in sodium chloride 0.9% (NS) 250 mL IV infusion (dbl conc) 1,400 Units/hr (03/22/18 192) insulin regular (NOVOLIN R) 100 Units in sodium chloride 0.9% (NS) 100 mL IV drip (std conc) 2 Units/hr (03/22/18 1924) norepinephrine (LEVOPHED) 16 mg in sodium chloride 0.9% (NS) 250 mL IV drip (quad conc) Stopped (03/21/18 1312) propofol (DIPRIVAN) 10 mg/mL IV infusion Stopped (03/22/18 0803) vasopressin (VASOSTRICT) 20 Units in sodium chloride 0.9% (NS) 100 mL IV drip (std conc) Stopped (03/20/18 0051) PRN and Respiratory Meds:acetaminophen Q4H PRN, aluminum/magnesium hydroxide Q4H PRN, carboxymethylcellulose PRN, diphenhydrAMINE Q4H PRN OR diphenhydrAMINE Q4H PRN, pancrelipase 20,000 Units/ sodium bicarbonate 650 mg(# ) PRN (Combination Window Installer from Rx) Vital Signs: Last Filed Vital Signs: 24 Hour Range ABP: 121/65 (03/22 2200) Temp: 36.8 C (98.2 F) (03/22 2000) Pulse: 133 (03/22 2200) Respirations: 15 PER MINUTE (03/22 2200) SpO2: 95 % (03/22 2200) O2 Delivery: Nasal Cannula (03/22 2200) Weight: 113.3 kg (249 lb 12.5 oz) (03/22 500) ABP: (92-171)/(49-89) Temp: [36.4 C (97.5 F)-36.9 C (98.4 F)] Pulse: [96-157] Respirations: [8 PER MINUTE-27 PER MINUTE] SpO2: [94 %-100 %] O2 Delivery: Nasal Cannula Intensity Pain Scale 0-10 (Pain 1): (not recorded) Vitals: 03/21/18 05003/21/18 11203/22/18499 Weight: 115 kg (253 lb 8.5 oz) 115 kg (253 lb 8.5 oz) 113.3 kg (249 lb 12.5 oz) Critical Care Vitals: Vigileo SVI (Calculated): 40 (03/22/18499) SVRI (Calculated): (!) 918 (03/22/18499) ICP Monitoring: PA Catheter: PA Catheter Only PA Pressure: (!) 64/41 (03/22/18 110) PA Mean (mm Hg): (!) 49 mm Hg (03/22/181103) CO: (!) 10.06 (03/22/18499) CO Method: Indirect Janay Calculation (03/22/18499) CI: (!) 4.53 (03/22/18499) SVR (Calculated): (!) 443 (03/22/18499) SVRI (Calculated): (!) 918 (03/22/18499) SV (Calculated): 90 (03/22/18499) SVI (Calculated): 40 (03/22/18499) Hemodynamics/Oxycalcs: Hemodynamics/Oxycalcs Device Type: Standard PA Catheter (03/22/18499) PA Pressure: (!) 64/41 (03/22/18 1104) PA Mean (mm Hg): (!) 49 mm Hg (03/22/18 110) CVP: (!) 31 MM HG (04/27/18 1104) CO: (!) 10.06 (03/22/18 0500) CO Method: Indirect Janay Calculation (03/22/18 0500) CI: (!) 4.53 (03/22/18 0500) SVR (Calculated): (!) 443 (03/22/18 0500) SVRI (Calculated): (!) 918 (03/22/18 0500) RVSWI (Calculated): 10 (03/22/18 0500) SV (Calculated): 90 (03/22/18 0500) SVI (Calculated): 40 (03/22/18 0500) Intake/Output Summary: (Last 24 hours) Intake/Output Summary (Last 24 hours) at 03/22/181 Last data filed at 03/22/18 2200 Gross per 24 hour Intake 2732.73 ml Output 5232 ml Net -2499.27 ml Physical Exam: General: Intubated, appears stated age, obese Lungs: Courese bilaterally Heart: Irregularly irregular Abdomen: Obese, hernia in midline, soft Extremities: Obese, edema, 1+ pulses, IABP in place in right femoral artery Peripheral pulses 1+ pulses Artificial airway: None Ventilator/ Respiratory Therapy: No Vent weaning trial: Not applicable Drains: None Prophylaxis Review: Lines: Yes; Arterial Line; Indication: Frequent blood draws and Continuous BP monitoring; Location: Radial Central Line; Indication: Med not deliverable peripherally and Hemodynamic monitoring; Type: Internal jugular Urinary Catheter: Yes; Retain mc due to: Patient on diuretics, Need for accurate Intake and Output and Acute renal insufficiency or failure Antibiotic Usage: No VTE: Pharmacological prophylaxis; SQ Heparin Lab Review: Pertinent labs reviewed Point of Care Testing: (Last 24 hours): Glucose: (!) 155 (03/22/18 1610) POC Glucose (Download): (!) 154 (03/22/180) Radiology and Other Diagnostic Procedures Review: Pertinent radiology reviewed. Bravo Anaya MD Pager [phone] * Iris Lyn, PHARMD - 03/22/2018 10:18 PM CDT Formatting of this note may be different from the original. Pharmacy Vancomycin Note Subjective: Farheen Gutierres is a 68 y.o. female being treated for GPC Bacteremia. Objective: Current dose: 1750 mg every 24 hours Day of Vancomycin therapy: 4 Cultures: Blood Cx: Strep mitis/oralis, Urine Cx: Klebsiella White Blood Cells Date/Time Value Ref Range Status 03/22/2018 0500 11.3 (H) 4.5 - 11.0 K/UL Final 03/21/2018 0410 11.8 (H) 4.5 - 11.0 K/UL Final 03/20/2018 0400 11.6 (H) 4.5 - 11.0 K/UL Final Creatinine Date/Time Value Ref Range Status 03/22/2018 1610 1.50 (H) 0.4 - 1.00 MG/DL Final 03/22/2018 1054 1.54 (H) 0.4 - 1.00 MG/DL Final 03/22/2018 0500 1.49 (H) 0.4 - 1.00 MG/DL Final Blood Urea Nitrogen Date/Time Value Ref Range Status 03/22/2018 1610 55 (H) 7 - 25 MG/DL Final Estimated CrCl: 47.1 ml/min Actual Weight: 113.3 kg (249 lb 12.5 oz) Dosing BW: 115.7 kg Drug Levels: Vancomycin Trough Date/Time Value Ref Range Status 03/22/2018 2120 20.1 (H) 10.0 - 20.0 MCG/ML Final Assessment: Target levels for this patient: ~15 Evaluation of level(s): Level was drawn appropriately and was slightly above goal range. Plan: 1. Decrease dose from 1750mg to 1500mg every 24hours. Next dose scheduled 28 hours after previous to allow for some additional clearance prior to re-dosing. 2. Next scheduled level(s): prior to the 3rd dose of new regimen or when clinically indicated. 3. Pharmacy will continue to monitor and adjust therapy as needed. Iris Lyn, PHARMD 03/22/2018 * Angelica Davis RD - 03/22/2018 4:32 PM CDT CLINICAL NUTRITION Clinical Nutrition Follow-Up Summary Nutrition Assessment of Patient: Malnutrition Assessment: Adequately nourished prior to admission Current Oral Intake: NPO Estimated Calorie Needs: 7490-0293 (25-28 kcals/kg per DBW 69.9kg) Estimated Protein Needs: 84-98 (1.2-1.4 gm/kg per DBW 69.9kg) Oral Diet Order: NPO Intake (calories) Daily Average : 749 kilocalories (59% of estimated need from EN + Propofol - 3 day avg) Intake (protein) Daily Average : 51 grams (43% of estimated needs from EN - 3 day avg) Current EN Order: Nutren 1.5 @35 ml/hr + 4 pkts Prosource Pt is a 68 y.o. female with a PMH that includes DM II, HTN, HLD, hypothyroidism who transferred from outside facility for cardiogenic shock on 03/18. Pt started on TF 03/19. Pt extubated this am, yet did not pass her initial swallow study, Pt to continue on TFs. RD spoke with Pt and , they state Pt was eating normally with stable weight until last weekend, when she developed abdominal distension/pain and stopped having BMs and UOP. Pt reports she now feels better since having a BM today, states this was her first in a week. Pt reports tolerating current TFs, without GI distress. RD to adjust TF recommendations now that Pt is no longer intubated or sedated with propofol. Will also adjust for TF 2 hour hold for synthriod. Recommendation: REC TF of Nutren 1.5 with goal rate 55ml/hr +1pk prosource protein to provide at goal rate 1875 kcals , 97 g protein, and 920 ml free H2O (assuming 22hr infusion with PO synthroid). If Pt's Renal labs worsen, and K, Mg, and Phos become elevated, consider switching to Novasource Renal with goal rate of 40 +1 pk prosource to provide at goal rate 1820 kcals , 95 g protein, and 634 ml free H2O. Intervention / Plan: Providing updated EN recs Will monitor EN adequacy/ tolerance Monitor wt trends, labs, meds, GI symptoms Nutrition Diagnosis: Nutrition Diagnosis: Inadequate protein-energy intake Etiology: intubation/dysphgia/slow advancement of TFs Signs & Symptoms: I/Os vs estimated needs Goals: EN tolerated and meeting >75% of nutritional needs Time Frame: Within 72 Hours Status: Not met;Ongoing Angelica Davis MS, RD, LD, [facility] Pager [phone] Office [phone] * Shivani Bustos MBBS - 03/22/2018 4:00 PM CDT Formatting of this note may be different from the original. Progress Note Name: Farheen Gutierres Admission Date: 03/18/2018 Admission Diagnosis: cardiogenic shock Cardiogenic shock (HCC) Principal Problem: Cardiogenic shock (HCC) Active Problems: RYAN (acute kidney injury) (HCC) HLD (hyperlipidemia) Type II diabetes mellitus (HCC) Essential hypertension Hypothyroidism PAF (paroxysmal atrial fibrillation) (HCC) Junctional bradycardia Morbid obesity with BMI of 45.0-49.9, adult (HCC) Nonischemic cardiomyopathy (HCC) Acute systolic heart failure (HCC) Pulmonary edema Acute respiratory failure with hypoxia (HCC) Shock liver Hyponatremia Infection due to parainfluenza virus 3 Assessment/Plan: Farheen Gutierres is a 68 y.o. female with a history of Diabetes mellitus on insulin , Hypertension, Hyperlipidemia, Hypothyroidism, admitted for management of cardiogenic shock and acute decompensated Heart failure Acute Decompensated Heart Failure with Biventricular failure Cardiogenic shock - improving, now requiring 2 pressors and IABP support Cardiomyopathy non ischemic Ddx- Takotsubo's, tachycardia induced - LHC on 03/18 with normal coronaries, aortic pressure 72/46, LVEDP 22, LV 71/15 , no gradient - Echo OSH 03/18 - EF 10-15%, no regional wall motion abnormalities, systolic peak pressure 32 mmHg, LA + RA dilated, mild-mod TR and mild MR - IABP placed on 03/18, currently 1:1; removed on 03/20/18 - BNP 350 - RVP positive for parainfluenza 3 - Endomyocardial biopsy (03/19/18): No evidence of myocarditis or amyloid. Myocyte vascularization seen which is a non-specific finding and possibly suggestive of ischemia. - Echocardiogram 03/19/18 Severe global LV hypokinesis. Estimated ejection fraction 10-15%. Normal LV wall thicknesses. Severe RV hypokinesis. Septal motion consistent with RV volume overload. Severe Tricuspid regurgitation - Right heart cath (03/19/18): RA 25, RV 50/13, PA 50/28, mean 35, PCWP 25, PA saturation 65%, Cardiac output (Janay) 4.5, index 2.0 > continue Dobutamine to titrate to 3 mg/kg/min for now and continue at the same rate >continue bumetnaide drip at 1 mg/hr rate to unload the RV, goal Urine output 150 -200 cc/hr Diuretic Therapy Prior to admission dose none Given on admission Lasix gtt 5/hr Daily Dosing 03/19 Lasix gtt 20, diuril x1, 03/20 lasix gtt 20 diuril x 1, 03/21 bumetanide gtt 1/hr with bolus of 2mg and Diuril x1, bumex gtt @ 1/hr on 03/22, Paroxysmal atrial Fibrillation - Unstable junctional bradycardia episode on 03/18 (while on amiodarone) at OSH s/p atropine x2 - NSR on admission with second episode of Junctional bradycardia to HR 50s on without hemodynamic instability - continued to be in NSR until 03/21/18 afternoon when she reverted back to Afib with rvr, - s/p amiodarone bolus and gtt and continues to be in afib > continue amiodarone gtt for now >continue heparin gtt with plans to transition to NOAC vs warfarin in future > may consider cardioversion in future ' Acute Hypoxic Respiratory Failure- extubated Pulmonary edema - Intubated at outside hospital for acute respiratory failure - ABG on admission 7.32 / 36 / 195 / 19.2 / 99.4 Possible pneumonia GPC bacteremia Klebsiella UTI - 1/2 BCx bottle positive for Staph and 2/2 blood cx bottles positive for Strep (appears to be Strep mitis species, a possible contaminant) - continue vancomycin and cefepime until further speciation and sensitivities data - repeat Cultures sent GI Possible Shock liver vs congestive hepatopathy vs STEEN - Improving - Supportive care as above - US of abdomen03/21/18 Mild hepatomegaly. There are no usman morphologic features of cirrhosis.Mild abdominal ascites. 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 Jones. ESTELA Marroquin PGY-2 Internal Medicine [id number] Subjective: Farheen Gutierres is a 68 y.o. female. No overnight events. She was intubated and sedated this morning, extubated later in the day, denies any pain ROS: Unable to be obtained due to patient factors. No nonverbal signs of pain. Objective: Vital Signs: Last Filed Vital Signs: 24 Hour Range Temp: 36.6 C (97.9 F) (03/22 1200) Pulse: 137 (03/22 1500) Respirations: 21 PER MINUTE (03/22 1500) SpO2: 97 % (03/22 1500) O2 Delivery: Nasal Cannula (03/22 1600) SpO2 Pulse: 118 (03/22 1500) ABP: (92-171)/(49-89) Temp: [36.4 C (97.5 F)-36.8 C (98.2 F)] Pulse: [96-141] Respirations: [8 PER MINUTE-27 PER MINUTE] SpO2: [94 %-100 %] O2 Delivery: Nasal Cannula Intake/Output Summary (Last 24 hours) at 03/22/18 1600 Last data filed at 03/22/18 1600 Gross per 24 hour Intake 3294.97 ml Output 5082 ml Net -1787.03 ml PHYSICAL EXAMINATION: GENERAL: Intubated but opening eyes intermittently. In no apparent distress HEENT: Atraumatic/Normocephalic, no obvious deformities, cornea/conjunctiva clear, normal external ears and nose, no lymphadenopathy and thyroid enlargement , JVD difficult to assess due to body habitus, ETT in place Lungs: Coarse rales throughout the lung hernandez bilaterally Heart: S1 and S2 normal. No murmurs. Regular rate and rhythm at time of evaluation. Abdomen: Soft, non tender, no organomegaly, bowel sounds present though hypoactive Neurologic: PERRL. Spontaneously moves extremities and responds to verbal and tactile stimuli. Extremities: No visible deformities, pulses palpable, trace edema bilaterally in the lower extremities LABS: Recent Labs 03/19/18 2131 03/20/18 0400 03/20/18 1205 03/20/18200903/21/18 0410 03/21/18 1308 03/21/18200003/22/18 0500 03/22/18 1054 NA 123* 124* 126* 126* 125* 128* 129* 128* 130* K 3.9 3.7 4.2 4.1 4.1 4.6 4.2 4.3 4.6 CL 92* 92* 94* 94* 92* 94* 94* 94* 94* CO2 20* 21 23 22 24 25 23 26 27 GAP 11 11 9 10 9 9 12 8 9 BUN 43* 43* 45* 49* 48* 52* 49* 51* 51* CR 1.64* 1.55* 1.64* 1.63* 1.88* 1.83* 1.66* 1.49* 1.54* GLU 260* 263* 261* 137* 208* 142* 139* 155* 131* CA 8.2* 8.4* 8.3* 8.5 8.8 8.6 8.8 8.7 8.6 ALBUMIN 3.6 3.3* 3.2* 3.3* 3.2* 3.4* 3.2* 3.2* -- MG 2.1 2.0 2.0 2.0 2.0 2.0 2.1 1.9 2.6 Recent Labs 03/19/18 2131 03/20/18 0045 03/20/18 0400 03/20/18 0723 03/20/18 1205 03/20/18200903/21/18 0410 03/21/18 0646 03/21/18 1308 03/21/18200003/22/18 0300 03/22/18 0500 03/22/18 1054 WBC -- -- 11.6* -- -- -- 11.8* -- -- -- -- 11.3* -- HGB -- -- 12.5 -- -- -- 11.5* -- -- -- -- 11.4* -- HCT -- -- 38.1 -- -- -- 35.6* -- -- -- -- 34.8* -- PLTCT -- -- 109* -- -- -- 94* -- -- -- -- 90* - - PTT -- 84.2* -- 109.8* -- -- -- 74.2* -- -- 129.6* - - 139.7* AST 128* -- 97* -- 82* 72* 60* -- 53* 43* -- 37 -- ALT 322* -- 269* -- 240* 209* 176* -- 164* 130* -- 111* - - ALKPHOS 47 -- 41 -- 41 38 41 -- 40 39 -- 38 -- Estimated Creatinine Clearance: 45.9 mL/min (A) (based on SCr of 1.54 mg/dL (H)) . Vitals: 03/21/18 0506 03/21/18 1124 03/22/18 0500 Weight: 115 kg (253 lb 8.5 oz) 115 kg (253 lb 8.5 oz) 113.3 kg (249 lb 12.5 oz) Recent Labs 03/22/18 0500 03/22/18 0940 PHART 7.39 7.34* PO2ART 89 104* MEDS cefepime (MAXIPIME) IVPB 2 g Intravenous Q24H* chlorhexidine gluconate 15 mL Swish & Spit BID(8-20) levothyroxine 125 mcg Per NG tube QDAY(07) nystatin Topical BID pantoprazole 40 mg Intravenous BID(11-21) PARoxetine 40 mg Per NG tube QDAY [START ON 03/23/2018] potassium chloride 40 mEq Per NG tube QDAY vancomycin IVPB 15 mg/kg Intravenous Q24H* And vancomycin, pharmacy to manage 1 each Service Per Pharmacy IV MEDS amiodarone (CORDARONE) 360 mg in dextrose, iso-osm 200 mL infusion 0.5 mg/ min (03/22/18 1207) bumetanide (BUMEX) 24 mg in empty IV bag 96 mL IV drip (std conc) 1 mg/hr ( 03/22/18 1200) DOBUTamine (DOBUTREX) 1,000 mg in sodium chloride 0.9% (NS) 250 mL IV drip ( std conc) 3 mcg/kg/min (03/22/18 1505) fentaNYL citrate PF (SUBLIMAZE) 1,000 mcg in dextrose 5% (D5W) infusion ( std conc) Stopped (03/22/18 1101) heparin (porcine) 20,000 Units in sodium chloride 0.9% (NS) 250 mL IV infusion (dbl conc) Stopped (03/22/18 1206) insulin regular (NOVOLIN R) 100 Units in sodium chloride 0.9% (NS) 100 mL IV drip (std conc) 2 Units/hr (03/22/18 1400) norepinephrine (LEVOPHED) 16 mg in sodium chloride 0.9% (NS) 250 mL IV drip (quad conc) Stopped (03/21/18 1312) propofol (DIPRIVAN) 10 mg/mL IV infusion Stopped (03/22/18 0803) vasopressin (VASOSTRICT) 20 Units in sodium chloride 0.9% (NS) 100 mL IV drip (std conc) Stopped (03/20/18 0051) Prnacetaminophen Q4H PRN, aluminum/magnesium hydroxide Q4H PRN, carboxymethylcellulose PRN, diphenhydrAMINE Q4H PRN OR diphenhydrAMINE Q4H PRN, pancrelipase 20,000 Units/ sodium bicarbonate 650 mg(#) PRN (Combination Window Installer from Rx) Associated attestation - Alem Jones MD - 03/22/2018 5:16 PM CDT Staff Physician Attestation: I have personally interviewed and examined the patient, have reviewed the EMR & all pertinent medical documentation, and agree with the assessment & plan as outlined by the resident. Brandon Jones M.D Patient extubated this morning, seen immediately following extubation feeling "good". in room. She unfortunately remains in rapid atrial fibrillation, rate poorly controlled despite amiodarone and previous IV digoxin. We transition to Bumex yesterday, marked improvement in diuresis when compared to Lasix. Negative fluid balance 2 L yesterday with 5 L of urine output. Assessment 1. 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 AK I, improving with diuresis consistent with cardiorenal syndrome 3. Hyponatremia, improving with diuresis 4. Persistent atrial fibrillation, has been in A. fib for nearly 48 hours, rates rapid, hemodynamically stable with really no change in blood pressure sinus versus A. fib 5. Hypoxic respiratory failure, extubated today successfully, 2 L nasal cannula present, just mild pulmonary congestion on chest x-ray Plan 1. Continue Bumex drip 2. Dobutamine titrated 5-3 mcg, will continue at this level over next 2 days 3. Continue amiodarone drip and heparin, if remains in atrial fibrillation into next week we will arrange for cardioversion absent YESI given witnessed sinus to fib and anticoagulation since conversion to atrial fibrillation 4. Enteral feedings until cleared for swallow, nutrition recs appreciated This patient remains critically ill. I spent 40 minutes in directing her care today, managing medications, evaluating hemodynamics and examining the patient. * Laura Rascon, RT - 03/22/2018 2:32 PM CDT Formatting of this note may be different from the original. RESPIRATORY THERAPY ADULT PROTOCOL EVALUATION RESPIRATORY PROTOCOL PLAN Medications Note: If indicated by protocol, medication orders will be placed by therapist. Procedures Vibrating PEP Therapy: Q4h While Awake PAP: Q4h PAP While Awake IPPB: Place a nursing order for "IS Q1h While Awake" for any of Lung Expansion indicators Oxygen/Humidity: O2 to keep SpO2 > 92% Monitoring: Pulse oximetry Q6h & PRN PATIENT EVALUATION RESULTS Chart Review * Pulmonary Hx: Smoking cessation < 8 weeks OR still smoking OR > 20 pack/yr hx (PEFR) OR occasional use of bronchodilator (AM) (Former smoker) * Surgical Hx: General surgery (cough & sigh not affected) * Chest X-Ray: Infiltrates (AC) OR atelectasis (LE) OR pleural effusion OR rib fractures (LE) (atelecatsis) * PFT/Oxygenation: FEV1, PEFR < 60% OR Pa02 < 60 or Sp02 <90% RA OR Fi02 > 0.30 to keep Sp02 >92% OR Sickle Cell Crisis OR Anemia (<10) OR Acute [place] (02 & oxim) Patient Assessment * Respiratory Pattern: Regular pattern and rate OR good chest excursion with deep breathing * Breath Sounds: Wheezes (PEFR & AM) OR stridor (contact MD) OR rhonchi (AC) * Cough / Sputum: Good effective cough OR occasional or minimal sputum OR thin sputum * Mental Status: Alert, oriented, cooperative * Activity Level: Ambulatory with assistance Priority Index Total Points: 14 Points * Priority Index: 2 PRIORITY INDEX GUIDELINES* Priority Points 1 0-9 points 2 9-18 points 3 > 18 points + Pulm Dx or Home Rx *Higher points indicate higher acuity. Therapist: Laura Rascon, RT Date: 03/22/2018 Fall AC=Airway clearance AM=Aerosolized medication BA=Wilkin aerosol DB&C=Deep breathe & cough FEV1=Forced expiratory volume in first second) IC=Inspiratory capacity LE=Lung expansion MDI=Metered dose inhaler Neb=Nebulizer O2=Oxygen Oxim=Oximetry PEFR=Peak expiratory flow rate PRESS TENDER SMOKE SIGNAL=Rapid Response Team * Prisca Zapien RN - 03/22/2018 2:[address] Carver at bedside due to right IJ dressing oozing after turns. Line pulled and heparin on hold for two hours until 1600. RN will check baseline PTT and re-start heparin at previous rate. Flexiseal placed due to frequent loose stools every hour. * Tiffany Moss - 03/22/2018 1:21 PM CDT SPEECH-LANGUAGE PATHOLOGY CLINICAL SWALLOW ASSESSMENT EVALUATION SUMMARY A clinical swallow evalaution was completed. Moderate-severe oropharyngeal dysphagia present secondary to recent prolonged intubation (03/19-03/22). Pt exhibits s/s of aspiration with thin and nectar thick liquids. After all trials were completed, pt exhibits coughing episode. Vocal quality mildly-moderately hoarse. Pt reports no past history of swallowing issues. Limited dentition and pt usually eats with dentures in place. Please see below for details/ recommendations. Swallow Recommendations* NPO w/ continued use of Corpak Medications via Corpak Ice chip protocol (5-10/hour). Details at [facility]. Frequent oral care (2-3x/day) . Ongoing speech therapy to manage dysphagia Oral Stage Summary*: Pt's swallow assessed with ice chip, thin liquids via tsp/ straw, nectar thick via tsp/straw, and pureed solids. Withdraw, formation ,and transfer WNL. Do not anticipate presence of premature posterior bolus spillage. Pharyngeal Stage Summary*: Swallow initiation timely. Laryngeal elevation reduced. Pt exhibits no s/s of aspiration with tsp amounts or small sips of liquids, though with larger boluses and consecutive swallows , pt exhibits cough episode (w/ thin and nectar thick). Pt at high risk for silent aspiration at this time. Plan: Continue Treatment Daily. Prognosis: Good NOMS Dysphagia [id number] Dysphagia -Not able to swallow safely by mouth for nutrition/hydration but may take some consistency w/ consistent max cues in therapy only. Alternative method of feeding required. Results Reported to Physician: Yes Objective* Relevant Med Background: Farheen Gutierres is a 68 y.o. female who we are asked to see for evaluation of heart failure. Patient was transferred from [facility] for refractory heart failure. Patient is currently intubated, hence the history is relied from records outside and ED/EMS personal. Chest XR 03/22/18 IMPRESSION Stable cardiomegaly with mild pulmonary vascular congestion, small left pleural effusion and bilateral perihilar and bibasilar atelectasis. Hearing: WFL Lives With: Spouse Psychosocial Status: Willing and Cooperative to Participate Persons Present: Spouse (Niharika) Subjective* Pain: Patient demonstrates no signs of pain Trach Presence: No Feeding Tube Present During Eval: Corpak Nutrition* Nutrition Prior To Hospitalization: Regular, Thin Liquids Current Form Of Nutrition: NG ORAL MECH EXAM Oral Mech WFL*: No Oral Mech Exam Summary*: Normal stregnth/ROM/coordination of oral strucutres. Vocal quality noted to be mild-moderately hoarse. Volitional cough weak. No upper dentition and 5 lower teeth noted. Pt's reports having dentures in the car Education* Persons Educated: Pt/Family Barriers To Learning: None Noted Interventions: Family Educated, Staff Educated, Provided Written Education Teaching Methods: Verbal, Printed Topics: Dysphagia Patient Response: Verbalized Understanding Goal Formulation: With Pt/Family Clinical Swallow Goals* Goal : Pt will tolerate ice chip protocol without negative pulmonary status chnages provided min cues. Goal : Pt will participate in ongoing swallow evalution provided min cues. Therapist:Micki Cates/LARRY-HATCHERY MANAGER (Pager [phone]; Voalte: [phone]) Date:03/22/2018 * Prisca Zapien, TREVOR - 03/22/2018 11:[address] Jones, Dr. Anaya and team at bedside. Order to decrease dobutamine to 4 mcg/kg/min now and decrease to 3 mcg/kg/min in 4 hours and leave it there today if tolerated. PT/OT and ST ordered. DC PA catheter and FICKs. * Karen Nichols RN - 03/22/2018 5:56 AM CDT Formatting of this note may be different from the original. 03/22/18 0500 Basic Hemodynamic Monitoring Device Type Standard PA Catheter CO (!) 10.06 CO Method Indirect Janay Calculation CI (!) 4.53 SV (Calculated) 90 SVI (Calculated) 40 CVP (!) 16 MM HG SVR (Calculated) (!) 443 SVRI (Calculated) (!) 918 Advanced Hemodynamic Monitoring PA Pressure (!) 47/27 PA Mean (mm Hg) (!) 34 mm Hg RVSWI (Calculated) [address] Dr[address] Jhonson notified of above results. Continue dobutamine at 5 mcg/kg/min. Continue to monitor. * Prisca Zapien, TREVOR - 03/21/2018 6:36 PM CDT RN spoke with Dr. Jones about re-starting heparin infusion. Will re-start at previous rate and check PTT in 6 hours. * Bravo Anaya MD - 03/21/2018 5:43 PM CDT Formatting of this note may be different from the original. Critical Care Progress Note Today's Date: 03/21/2018 Name: Farheen Gutierres Admission Date: 03/18/2018 LOS: 3 days Assessment/Plan: Principal Problem: Cardiogenic shock (HCC) Active Problems: RYAN (acute kidney injury) (HCC) HLD (hyperlipidemia) Type II diabetes mellitus (HCC) Essential hypertension Hypothyroidism PAF (paroxysmal atrial fibrillation) (HCC) Junctional bradycardia Morbid obesity with BMI of 45.0-49.9, adult (HCC) Nonischemic cardiomyopathy (HCC) Acute systolic heart failure (HCC) Pulmonary edema Acute respiratory failure with hypoxia (HCC) Shock liver Hyponatremia Infection due to parainfluenza virus 3 ATTESTATION Date of Service: 03/21/2018 I have seen, personally fully evaluated, and discussed patient with the [facility] ICU team. The patient is critically ill with cardiogenic shock. I spent 45 minutes (excluding time spent performing or supervising any procedures) providing and personally directing critical care services including ventilator management, pain mgt, hemodynamic monitoring and management, lab and radiology review, medication review and management, fluid and electrolyte management and coordination of care. Comfortably sedated but fully intact. Cont with propofol and fentanyl. Remains in cardiogenic shock. Unclear etiology. Endomyocardial bx unremarkable. Cont dobutamine, levo, for support. Able to wean pressors some. IABP inadvertantly pulled yesterday. Has tolerated thus far. Biventricular dysfunction without significant LV dilation. Coronaries clean at OSH. A-fib this afternoon. Will restart amio. Overall hemodynamics are surprisingly stable. Arrived intubated. Pulm edema somewhat improved. PS trial this morning went well. Needs more volume off before ready for extubation. Hopefully tomorrow. Creat 1.8. Unknown baseline. Needs aggressive diuresis. Not responding to lasix so will switch to bumex. Unclear duration of hyponatremia. Hypervolemic. Watch other lytes with diuresis. H/H stable. IV heparin for recent cardioversion on hold but may consider restarting in light of a-fib this afternoon. No signs of bleeding. IDDM. Cont insulin gtt for now. NPO while intubated. Corpak placed and enteral feeds started. Transaminitis likely from cardiogenic shock. Monitor closely. Multiple positive blood cultures and positive urine cx. Cont to follow cultures /sensitivities and adjust as needed. This patient is critically ill with dysfunction of multiple organ systems and is at risk for additional life threatening deterioration. Cont ICU care. Discussed with throughout the day. Guarded prognosis. Staff name: Bravo Anaya MD Date: 03/21/2018 __ Subjective: Farheen Gutierres is a 68 y.o. female. Remains in cardiogenic shock. Objective: Medications: Scheduled Meds: AMIODARONE 50 MG/ML IV SOLN (Cabinet Override) NOW cefepime (MAXIPIME) 2 g/100 ml iso-osmotic IVPB 2 g Intravenous Q24H* chlorhexidine gluconate (PERIDEX) 0.12 % solution 15 mL 15 mL Swish & Spit BID(8 -20) digoxin (LANOXIN) injection 250 mcg 250 mcg Intravenous QDAY heparin (porcine) injection 7,500 Units 0.75 mL 7,500 Units Subcutaneous Q8H levothyroxine (SYNTHROID) tablet 125 mcg 125 mcg Per NG tube QDAY() magnesium sulfate 1 g/D5W 100 mL IVPB 1 g Intravenous ONCE nystatin (NYSTOP) topical powder Topical BID pantoprazole (PROTONIX) injection 40 mg 40 mg Intravenous BID(-) PARoxetine (PAXIL) tablet 40 mg 40 mg Per NG tube QDAY polyethylene glycol 3350 (MIRALAX) packet 34 g 2 packet Oral BID potassium chloride oral solution 40 mEq 40 mEq Per NG tube BID potassium chloride SR (K-DUR) tablet 40 mEq 40 mEq Oral ONCE senna/docusate (SENOKOT-S) tablet 2 tablet 2 tablet Oral BID SODIUM CHLORIDE 0.9 % IV SOLP (Cabinet Override) NOW vancomycin (VANCOCIN) 1,750 mg in dextrose 5% (D5W) IVPB 15 mg/kg Intravenous Q24H* And vancomycin, pharmacy to manage 1 each Service Per Pharmacy WATER FOR INJECTION, STERILE IJ SOLN (Cabinet Override) NOW Continuous Infusions: amiodarone (CORDARONE) 360 mg in dextrose, iso-osm 200 mL infusion 1 mg/min (03/21/18 1653) bumetanide (BUMEX) 24 mg in empty IV bag 96 mL IV drip (std conc) 1 mg/hr ( 03/21/18 1100) DOBUTamine (DOBUTREX) 1,000 mg in sodium chloride 0.9% (NS) 250 mL IV drip ( std conc) 5 mcg/kg/min (03/21/18 1200) fentaNYL citrate PF (SUBLIMAZE) 1,000 mcg in dextrose 5% (D5W) infusion ( std conc) 25 mcg/hr (03/21/18 0726) insulin regular (NOVOLIN R) 100 Units in sodium chloride 0.9% (NS) 100 mL IV drip (std conc) Stopped (03/21/18 1637) norepinephrine (LEVOPHED) 16 mg in sodium chloride 0.9% (NS) 250 mL IV drip (quad conc) Stopped (03/21/18 1312) propofol (DIPRIVAN) 10 mg/mL IV infusion 30 mcg/kg/min (03/21/18 1632) vasopressin (VASOSTRICT) 20 Units in sodium chloride 0.9% (NS) 100 mL IV drip (std conc) Stopped (03/20/18 0051) PRN and Respiratory Meds:acetaminophen Q4H PRN, aluminum/magnesium hydroxide Q4H PRN, carboxymethylcellulose PRN, diphenhydrAMINE Q4H PRN OR diphenhydrAMINE Q4H PRN, pancrelipase 20,000 Units/ sodium bicarbonate 650 mg(# ) PRN (Combination Window Installer from Rx) Vital Signs: Last Filed Vital Signs: 24 Hour Range BP: 114/58 (03/21 1124) ABP: 97/49 (03/21 1700) Temp: 36.6 C (97.9 F) (03/21 1700) Pulse: 141 (03/21 1700) Respirations: 15 PER MINUTE (03/21 1700) SpO2: 94 % (03/21 1700) O2 Delivery: Endotracheal Tube (Oral) (03/21 1500) Height: 167.6 cm (66") (03/21 112) Weight: 115 kg (253 lb 8.5 oz) (03/21 112) BP: (114)/(58) ABP: (92-150)/(45-101) Temp: [35.8 C (96.4 F)-36.8 C (98.2 F)] Pulse: [76-141] Respirations: [0 PER MINUTE-18 PER MINUTE] SpO2: [82 %-99 %] O2 Delivery: Endotracheal Tube (Oral) Intensity Pain Scale 0-10 (Pain 1): (not recorded) Vitals: 03/20/18 0600 03/21/18 0506 03/21/18 1124 Weight: 114.9 kg (253 lb 4.9 oz) 115 kg (253 lb 8.5 oz) 115 kg (253 lb 8.5 oz) Critical Care Vitals: Vigileo SVI (Calculated): 40 (03/21/18 1520) SVRI (Calculated): (!) 1023 (03/21/18 1520) ICP Monitoring: PA Catheter: PA Catheter Only PA Pressure: (!) 49/27 (03/21/18 1700) PA Mean (mm Hg): (!) 34 mm Hg (03/21/18 1700) CO: (!) 8.9 (03/21/18 1520) CO Method: Indirect Janay Calculation (03/21/18 1520) CI: 3.99 (03/21/18 1520) SVR (Calculated): (!) 470 (03/21/18 1520) SVRI (Calculated): (!) 1023 (03/21/18 1520) SV (Calculated): 90 (03/21/18 152) SVI (Calculated): 40 (03/21/18 1520) Hemodynamics/Oxycalcs: Hemodynamics/Oxycalcs Device Type: Standard PA Catheter (03/21/181519) PA Pressure: (!) 49/27 (03/21/18 1700) PA Mean (mm Hg): (!) 34 mm Hg (03/21/18 1700) CVP: (!) 15 MM HG (03/21/18 1700) CO: (!) 8.9 (03/21/18 1520) CO Method: Indirect Janay Calculation (03/21/18 1520) CI: 3.99 (03/21/18 1520) SVR (Calculated): (!) 470 (03/21/18 1520) SVRI (Calculated): (!) 1023 (03/21/18 1520) RVSWI (Calculated): 10 (03/21/18 1520) SV (Calculated): 90 (03/21/18 1520) SVI (Calculated): 40 (03/21/18 1520) Intake/Output Summary: (Last 24 hours) Intake/Output Summary (Last 24 hours) at 03/21/18 1743 Last data filed at 03/21/18 170 Gross per 24 hour Intake 2153.43 ml Output 2985 ml Net -831.57 ml Physical Exam: General: Intubated, appears stated age, obese Lungs: Courese bilaterally Heart: Regular rate and rhythm, S1, S2 normal, no murmur, click rub or gallop Abdomen: Obese, hernia in midline, soft Extremities: Obese, edema, 1+ pulses, IABP in place in right femoral artery Peripheral pulses 1+ pulses Artificial airway: Endotracheal Tube Ventilator/ Respiratory Therapy: Yes: Mode: V/AC+ Set Vt (ml): [500 milliliters] Tidal Volume Spont (mL): [53 milliliters-772 milliliters] Set RR: [15 breaths/minutes] Total Respiratory Rate (Breaths/Min): [11 breaths/minutes-24 breaths/minutes] O2%: [40 %] PIP Actual: [10 cm H20-35 cm H20] PEEP/CPAP: [5 cm H2O] PSupport: [5 cm H20] Plateau Pressure: [18 cm H2O] Vent weaning trial: Not applicable Drains: None Prophylaxis Review: Lines: Yes; Arterial Line; Indication: Frequent blood draws and Continuous BP monitoring; Location: Radial Central Line; Indication: Med not deliverable peripherally and Hemodynamic monitoring; Type: Internal jugular Urinary Catheter: Yes; Retain mc due to: Patient on diuretics, Need for accurate Intake and Output and Acute renal insufficiency or failure Antibiotic Usage: No VTE: Pharmacological prophylaxis; SQ Heparin Lab Review: Pertinent labs reviewed Point of Care Testing: (Last 24 hours): Glucose: (!) 142 (03/21/18 1308) POC Glucose (Download): 92 (03/21/18 1702) Radiology and Other Diagnostic Procedures Review: Pertinent radiology reviewed. Bravo Anaya MD Pager [phone] * Prisca Zapien RN - 03/21/2018 5:[address] Jones at bedside and updated on pt status. Digoxin and Magnesium Sulfate ordered. * Prisca Zapien RN - 03/21/2018 5:15 PM CDT Formatting of this note may be different from the original. 03/21/18 1520 Basic Hemodynamic Monitoring Device Type Standard PA Catheter CO (!) 8.9 CO Method Indirect Janay Calculation CI 3.99 SV (Calculated) 90 SVI (Calculated) 40 CVP (!) 11 MM HG SVR (Calculated) (!) 470 SVRI (Calculated) (!) 1023 * Prisca Zapien RN - 03/21/2018 4:29 PM CDT Pt in atrial fib/atrial tachy in 190s. Pt resting comfortably with no triggers to increase HR. SBP decreased to 80s and MAP mid-50s. Patches placed and amiodarone ordered by Dr. Carver. Pt placed on previous ventilator setting and propofol re-started. Will start amiodarone infusion after bolus is finished infusing. * Jessika Cruz - 03/21/2018 1:45 PM CDT Physiognomist Note: Admit Date: 03/18/2018 Reason for visit: Follow up spiritual support for family Synopsis of visit: Physiognomist talked with patient's , Niharika, in the hallway. seemed relieved as he talked about the progress patient is making. He also said that he has a cousin (Luara) who lives in the [place] who is helpful and supportive; she is also a nurse. seemed both in good spirits and hopeful about patient's situation. Physiognomist listened actively, offering support and words of encouragement. Physiognomist shared in 's positive news regarding patient's situation. Physiognomist will continue to follow for spiritual and emotional support. The spiritual care team is available as needed, 18/06, through the campus switchboard ([phone]). For immediate response, please page [phone]. For a response within 24 hours, please submit an order in O2 for a manager of compliance consult or call the administrative voicemail at [phone]. Please page or use consult order if family requests visit. Date/Time: User: Pager: [phone] 03/22/2018 7:49 AM Jessika Cruz * Prisca Zapien, TREVOR - 03/21/2018 11:[address] Jones and team at bedside. Diuril and Bumex ordered and continuous infusion changed from lasix to bumex. Goal UOP 150 cc/hr. Observed echo at bedside and Dr. Jones updated . Pt to remain intubated today, but attempt spontaneous breathing trial. RN to give suppository x 2 with next turn. * Karen Nichols RN - 03/21/2018 6:18 AM CDT Formatting of this note may be different from the original. 03/21/18 0400 Basic Hemodynamic Monitoring Device Type Standard PA Catheter CO 6.9 CO Method Indirect Janay Calculation CI 3.11 SV (Calculated) 78 SVI (Calculated) 35 CVP (!) 16 MM HG SVR (Calculated) (!) 568 SVRI (Calculated) (!) 1260 Advanced Hemodynamic Monitoring PA Pressure (!) 41/22 PA Mean (mm Hg) (!) 31 mm Hg RVSWI (Calculated) 7 Dr. Johnson notified of above results. * Wayne Rivera MD - 03/21/2018 4:38 AM CDT Formatting of this note may be different from the original. Progress Note Name: Farheen Gutierres Admission Date: 03/18/2018 Admission Diagnosis: cardiogenic shock Cardiogenic shock (HCC) Principal Problem: Cardiogenic shock (HCC) Active Problems: RYAN (acute kidney injury) (HCC) HLD (hyperlipidemia) Type II diabetes mellitus (HCC) Essential hypertension Hypothyroidism PAF (paroxysmal atrial fibrillation) (HCC) Junctional bradycardia Morbid obesity with BMI of 45.0-49.9, adult (HCC) Nonischemic cardiomyopathy (HCC) Acute systolic heart failure (HCC) Pulmonary edema Acute respiratory failure with hypoxia (HCC) Shock liver Hyponatremia Infection due to parainfluenza virus 3 Assessment/Plan: Farheen Gutierres is a 68 y.o. female with a history of Diabetes mellitus on insulin , Hypertension, Hyperlipidemia, Hypothyroidism, admitted for management of cardiogenic shock and acute decompensated Heart failure Changes Today: - Due to lack of desired urine output, will d/c furosemide gtt and transition to bumetnaide drip with a 2 mg bolus followed by 1 mg/hr rate. Also, will give chlorothiazide 500 mg IV once. Goal urine output 150 mL/hr. - Obtain complete US of abdomen. Main indication for imaging is concern for STEEN/cirrhosis, though will also evaluate for urinary tract obstruction, urolithiasis, or hydronephrosis - Urine culture growing >100,000 Klebsiella, susceptible to cefepime. Blood culture growing Strep mitis, which could potentially be a contaminant. Staph not yet speciated. Will likely transition to monotherapy with ceftriaxone if not MRSA. - Transition to prophylactic heparin - Due to lack of recent bowel movement, will give bisacodyl rectal suppository 10 mg once and continue scheduled senna and Miralax Acute Decompensated Heart Failure with Biventricular failure Cardiogenic shock - improving, now requiring 2 pressors and IABP support Cardiomyopathy non ischemic Ddx- Takotsubo's, tachycardia induced - LHC on 03/18 with normal coronaries, aortic pressure 72/46, LVEDP 22, LV 71/15 , no gradient - Echo OSH 03/18 - EF 10-15%, no regional wall motion abnormalities, systolic peak pressure 32 mmHg, LA + RA dilated, mild-mod TR and mild MR - IABP placed on 03/18, currently 1:1; removed on 03/20/18 - BNP 350 - RVP positive for parainfluenza 3 - Endomyocardial biopsy (03/19/18): No evidence of myocarditis or amyloid. Myocyte vascularization seen which is a non-specific finding and possibly suggestive of ischemia. - Echocardiogram 03/19/18 Severe global LV hypokinesis. Estimated ejection fraction 10-15%. Normal LV wall thicknesses. Severe RV hypokinesis. Septal motion consistent with RV volume overload. Severe Tricuspid regurgitation - Right heart cath (03/19/18): RA 25, RV 50/13, PA 50/28, mean 35, PCWP 25, PA saturation 65%, Cardiac output (Janay) 4.5, index 2.0 - continue Dobutamine @5, titrate down on levophed as able - Due to lack of desired urine output, will d/c furosemide gtt and transition to bumetnaide drip with a 2 mg bolus followed by 1 mg/hr rate. Also, will give chlorothiazide 500 mg IV once - methylprednisolone discontinued 03/20 after biopsy negative for myocarditis - D/C heparin gtt and transition to prophylactic heparin dosed at 7,500 U SQ q8h due to BMI >40 - Trend lactic acid - CTS aware of patient; no current plans for ECMO Diuretic Therapy Prior to admission dose none Given on admission Lasix gtt 5/hr Daily Dosing 03/19 Lasix gtt 20, diuril x1, 03/20 lasix gtt 20 diuril x 1, 03/21 bumetanide gtt 1/hr with bolus of 2mg and Diuril x1 Paroxysmal atrial Fibrillation - Unstable junctional bradycardia episode on 03/18 (while on amiodarone) at OSH s/p atropine x2 - NSR on admission with second episode of Junctional bradycardia to HR 50s on without hemodynamic instability - NSR with frequent PVCs; avoid amiodarone, precedex for now - Pacemaker may be a back up option if episodes recurrent, monitor for now Acute Hypoxic Respiratory Failure Pulmonary edema - Intubated at outside hospital for acute respiratory failure - ABG on admission 7.32 / 36 / 195 / 19.2 / 99.4 > Continue mechanical ventilation > Wean off ventilator as able Possible pneumonia GPC bacteremia - 1/2 BCx bottle positive for Staph and 2/2 blood cx bottles positive for Strep (appears to be Strep mitis species, a possible contaminant) - continue vancomycin and cefepime - possibility of contaminant - repeat Cultures sent - await final cx GI Possible Shock liver vs congestive hepatopathy vs STEEN - Supportive care as above - Obtain complete US of abdomen. Main indication for imaging is concern for STEEN/cirrhosis, though will also evaluate for urinary tract obstruction, urolithiasis, or hydronephrosis Nutrition - continue Tube feeds, per dietitian recommendations Constipation - Continue bowel regimen senna and miralax BID scheduled - Bisacodyl rectal suppository 10 mg once Renal Acute Kidney Injury - likely cardiorenal - Unknown baseline, Creatinine on admission 1.7 and previous BMP with 1.3 > Accurate I/Os > diuresis as above UTI - Urine culture growing >100,000 Klebsiella, susceptible to cefepime. 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 Jones. Wayne Rivera M.D. Internal Medicine/Psychiatry PGY-1 Pager: [phone] Subjective: Farheen Gutierres is a 68 y.o. female. No overnight events. She was intubated and sedated this morning, though was arousable to verbal and tactile stimuli. She responded to commands. ROS: Unable to be obtained due to patient factors. No nonverbal signs of pain. Objective: Vital Signs: Last Filed Vital Signs: 24 Hour Range BP: 114/58 (03/21 1124) Temp: 36.3 C (97.3 F) (03/21 1200) Pulse: 92 (03/21 1200) Respirations: 17 PER MINUTE (03/21 1200) SpO2: 82 % (03/21 1200) O2 Delivery: Endotracheal Tube (Oral) (03/21 0800) SpO2 Pulse: 91 (03/21 1200) Height: 167.6 cm (66") (03/21 1124) BP: (114)/(58) ABP: (92-150)/(46-101) Temp: [35.8 C (96.4 F)-36.7 C (98.1 F)] Pulse: [72-94] Respirations: [0 PER MINUTE-21 PER MINUTE] SpO2: [82 %-99 %] O2 Delivery: Endotracheal Tube (Oral) Intake/Output Summary (Last 24 hours) at 03/21/18 1216 Last data filed at 03/21/18 1200 Gross per 24 hour Intake 2078.65 ml Output 2860 ml Net -781.35 ml PHYSICAL EXAMINATION: GENERAL: Intubated but opening eyes intermittently. In no apparent distress HEENT: Atraumatic/Normocephalic, no obvious deformities, cornea/conjunctiva clear, normal external ears and nose, no lymphadenopathy and thyroid enlargement , JVD difficult to assess due to body habitus, ETT in place Lungs: Coarse rales throughout the lung hernandez bilaterally Heart: S1 and S2 normal. No murmurs. Regular rate and rhythm at time of evaluation. Abdomen: Soft, non tender, no organomegaly, bowel sounds present though hypoactive Neurologic: PERRL. Spontaneously moves extremities and responds to verbal and tactile stimuli. Extremities: No visible deformities, pulses palpable, trace edema bilaterally in the lower extremities LABS: Recent Labs 03/19/18 0015 03/19/18 0400 03/19/18 1355 03/19/18 2131 03/20/18 0400 03/20/18 1205 03/20/18200903/21/18 0410 NA 124* 125* 124* 123* 124* 126* 126* 125* K 4.0 3.9 4.2 3.9 3.7 4.2 4.1 4.1 CL 95* 94* 94* 92* 92* 94* 94* 92* CO2 17* 19* 20* 20* 21 23 22 24 GAP 12 12 10 11 11 9 10 9 BUN 45* 45* 46* 43* 43* 45* 49* 48* CR 1.71* 1.71* 1.69* 1.64* 1.55* 1.64* 1.63* 1.88* GLU 292* 291* 281* 260* 263* 261* 137* 208* CA 7.8* 8.0* 8.1* 8.2* 8.4* 8.3* 8.5 8.8 ALBUMIN 3.5 3.4* 3.7 3.6 3.3* 3.2* 3.3* 3.2* MG 1.6 1.8 2.3 2.1 2.0 2.0 2.0 2.0 HGBA1C -- 6.6* -- -- -- -- -- -- TSH 6.450* -- -- -- -- -- -- -- Recent Labs 03/19/18 0015 03/19/18 0400 03/19/18 0630 03/19/18 1136 03/19/18 1355 03/19/18213003/20/18 0045 03/20/18 0400 03/20/18 0723 03/20/18 1205 03/20/18200903/21/18 0410 03/21/18 0646 WBC 15.9* 15.1* -- -- -- -- -- 11.6* -- -- -- 11.8* -- HGB 13.6 13.4 -- -- -- -- -- 12.5 -- -- -- 11.5* - - HCT 41.3 40.1 -- -- -- -- -- 38.1 -- -- -- 35.6* - - PLTCT 148* 140* -- -- -- -- -- 109* -- -- -- 94* - - INR 1.9* -- -- -- -- -- -- -- -- -- -- -- - - PTT 29.4 -- 92.7* 128.2* -- -- 84.2* -- 109.8* -- -- - - 74.2* AST 363* 285* -- -- 182* 128* -- 97* -- 82* 72* 60* -- ALT 390* 365* -- -- 370* 322* -- 269* -- 240* 209* 176* - - ALKPHOS 46 44 -- -- 49 47 -- 41 -- 41 38 41 -- TNI 0.02 -- -- -- -- -- -- -- -- -- -- -- - - Estimated Creatinine Clearance: 37.9 mL/min (A) (based on SCr of 1.88 mg/dL (H)) . Vitals: 03/20/18 0600 03/21/18 0506 03/21/18 1124 Weight: 114.9 kg (253 lb 4.9 oz) 115 kg (253 lb 8.5 oz) 115 kg (253 lb 8.5 oz) Recent Labs 03/20/18 2200 03/21/18 0410 PHART 7.42 7.43 PO2ART 90 80 MEDS cefepime (MAXIPIME) IVPB 2 g Intravenous Q24H* chlorhexidine gluconate 15 mL Swish & Spit BID(8-20) heparin (porcine) 7,500 Units Subcutaneous Q8H levothyroxine 125 mcg Per NG tube QDAY(07) nystatin Topical BID pantoprazole 40 mg Intravenous BID(11-21) PARoxetine 40 mg Per NG tube QDAY polyethylene glycol 3350 2 packet Oral BID potassium chloride 40 mEq Per NG tube BID potassium chloride SR 40 mEq Oral ONCE senna/docusate 2 tablet Oral BID vancomycin IVPB 15 mg/kg Intravenous Q24H* And vancomycin, pharmacy to manage 1 each Service Per Pharmacy water (sterile) for injection NOW IV MEDS bumetanide (BUMEX) 24 mg in empty IV bag 96 mL IV drip (std conc) 1 mg/hr ( 03/21/18 1100) DOBUTamine (DOBUTREX) 1,000 mg in sodium chloride 0.9% (NS) 250 mL IV drip ( std conc) 5 mcg/kg/min (03/21/18 1200) fentaNYL citrate PF (SUBLIMAZE) 1,000 mcg in dextrose 5% (D5W) infusion ( std conc) 25 mcg/hr (03/21/18 0726) insulin regular (NOVOLIN R) 100 Units in sodium chloride 0.9% (NS) 100 mL IV drip (std conc) 8.5 Units/hr (03/21/18 1001) norepinephrine (LEVOPHED) 16 mg in sodium chloride 0.9% (NS) 250 mL IV drip (quad conc) 0.01 mcg/kg/min (03/21/18 1142) propofol (DIPRIVAN) 10 mg/mL IV infusion Stopped (03/21/18 1142) vasopressin (VASOSTRICT) 20 Units in sodium chloride 0.9% (NS) 100 mL IV drip (std conc) Stopped (03/20/18 0051) Prnacetaminophen Q4H PRN, aluminum/magnesium hydroxide Q4H PRN, carboxymethylcellulose PRN, diphenhydrAMINE Q4H PRN OR diphenhydrAMINE Q4H PRN, pancrelipase 20,000 Units/ sodium bicarbonate 650 mg(#) PRN (Combination Window Installer from Rx) Associated attestation - Alem Jones MD - 03/22/2018 2:45 PM CDT Staff Physician Attestation: I have personally interviewed and examined the patient, have reviewed the EMR & all pertinent medical documentation, and agree with the assessment & plan as outlined by the resident. Brandon Jones M.D No acute events overnight following interesting afternoon with unfortunate removal of IABP. No issues at right groin site. was updated on progress this morning. We obtained a repeat echocardiogram today, this point no improvement in her LV function, EF still 20%. RV still remains moderately dilated and dysfunctional with evidence of RV volume overload. Despite 3 days of aggressive diuresis, we have made little ground. Assessment 1. Acute HF R EF, biventricular failure of unclear etiology. I suspect long- standing RV failure from untreated sleep apnea chronic volume excess. Biopsy negative for myocarditis. Outside [facility] normal. Will continue supportive measures 2. Cardiogenic shock, resolving. IABP out yesterday, pressor requirement down significantly, remains on dobutamine 3. Pulmonary hypertension, suspect untreated JOVANI, obesity hypoventilation, with chronic pH in setting of pulmonary venous hypertension with at least some degree of chronic LV dysfunction 4. PAFunfortunately back in A. fib this afternoon, rapid 145 5. Hyponatremia, improving with diuresis 6. AK I, difficult to know baseline, renal function stable 1.7-1.8 since admission 7. Bacteremia, staph aureus, Streptococcus, possible contaminant Plan 1. We will try to wean norepinephrine, continue dobutamine 2. Minimal success with Lasix drip, will transition to Bumex and give chlorothiazide 200 mg. Goal 150 mL/h, will adjust diuretic appropriately 3. Collect aggressive electrolyte replacement and frequent lab testing 4. Needs ongoing ventilatory support, Dr. Anaya managing 5. Will start amiodarone drip with concerns for AF 6. Continue broad-spectrum antibiotics, vancomycin and cefepime This patient remains critically ill, I spent 45 minutes in managing her care, adjusting medications, managing hemodynamics, examining patient, and discussing with consultants and family * Karen Nichols RN - 03/20/2018 11:15 PM CDT Formatting of this note may be different from the original. 03/20/182009 Basic Hemodynamic Monitoring Device Type Standard PA Catheter CO 7.85 CO Method Indirect Janay Calculation CI 3.54 SV (Calculated) 97 SVI (Calculated) 44 CVP (!) 21 MM HG SVR (Calculated) (!) 523 SVRI (Calculated) (!) 1130 Advanced Hemodynamic Monitoring PA Pressure (!) 40/31 PA Mean (mm Hg) (!) 36 mm Hg RVSWI (Calculated) 9 Dr. Johnson notified. Continue to monitor * Bravo Anaya MD - 03/20/2018 9:40 PM CDT Formatting of this note may be different from the original. Critical Care Progress Note Today's Date: 03/20/2018 Name: Farheen Gutierres Admission Date: 03/18/2018 LOS: 2 days Assessment/Plan: Principal Problem: Cardiogenic shock (HCC) Active Problems: RYAN (acute kidney injury) (HCC) HLD (hyperlipidemia) Type II diabetes mellitus (HCC) Essential hypertension Hypothyroidism PAF (paroxysmal atrial fibrillation) (HCC) Junctional bradycardia Morbid obesity with BMI of 45.0-49.9, adult (HCC) Nonischemic cardiomyopathy (HCC) Acute systolic heart failure (HCC) Pulmonary edema Acute respiratory failure with hypoxia (HCC) Shock liver Hyponatremia Infection due to parainfluenza virus 3 ATTESTATION Date of Service: 03/20/2018 I have seen, personally fully evaluated, and discussed patient with the [facility] ICU team. The patient is critically ill with cardiogenic shock. I spent 90 minutes (excluding time spent performing or supervising any procedures) providing and personally directing critical care services including ventilator management, pain mgt, hemodynamic monitoring and management, lab and radiology review, medication review and management, fluid and electrolyte management and coordination of care. Comfortably sedated but fully intact. Cont with propofol and fentanyl. Remains in profound cardiogenic shock. Unclear etiology. Endomyocardial bx unremarkable. Cont dobutamine, levo, vasopressin for support. Able to wean pressors some. IABP inadvertantly pulled this afternoon so fully removed. Has tolerated thus far. Biventricular dysfunction without significant LV dilation. Coronaries clean at OSH. No further a-fib but did have episode of junctional bradycardia that was not well tolerated. Cont to hold amio. Arrived intubated. Still with lots of pulm edema. No plans for vent weaning until aggressively diureses and IABP out. Creat 1.7. Unknown baseline. Needs aggressive diuresis. Unclear duration of hyponatremia. Hypervolemic. Watch other lytes with diuresis. H/H stable. IV heparin for recent cardioversion on hold with IABP pull. No signs of bleeding. IDDM. Cont insulin gtt for now. NPO while intubated. Corpak placed and enteral feeds started today. Transaminitis likely from cardiogenic shock. Monitor closely. Multiple positive blood cultures came back last night. Abx added. Follow culture results as this was surprising finding. This patient is critically ill with dysfunction of multiple organ systems and is at risk for additional life threatening deterioration. Cont ICU care. Discussed with throughout the day. Guarded prognosis. Staff name: Bravo Anaya MD Date: 03/20/2018 __ Subjective: Farheen Gutierres is a 68 y.o. female. Remains in cardiogenic shock. Objective: Medications: Scheduled Meds: [START ON 03/21/2018] cefepime (MAXIPIME) 2 g/100 ml iso-osmotic IVPB 2 g Intravenous Q24H* chlorhexidine gluconate (PERIDEX) 0.12 % solution 15 mL 15 mL Swish & Spit BID(8 -) levothyroxine (SYNTHROID) tablet 125 mcg 125 mcg Per NG tube QDAY() pantoprazole (PROTONIX) injection 40 mg 40 mg Intravenous BID(-) PARoxetine (PAXIL) tablet 40 mg 40 mg Per NG tube QDAY polyethylene glycol 3350 (MIRALAX) packet 34 g 2 packet Oral BID potassium chloride oral solution 40 mEq 40 mEq Per NG tube BID senna/docusate (SENOKOT-S) tablet 2 tablet 2 tablet Oral BID SODIUM CHLORIDE 0.9 % IV SOLP (Cabinet Override) NOW vancomycin (VANCOCIN) 1,750 mg in dextrose 5% (D5W) IVPB 15 mg/kg Intravenous Q24H* And vancomycin, pharmacy to manage 1 each Service Per Pharmacy Continuous Infusions: DOBUTamine (DOBUTREX) 1,000 mg in sodium chloride 0.9% (NS) 250 mL IV drip ( std conc) 5 mcg/kg/min (03/20/181999) fentaNYL citrate PF (SUBLIMAZE) 1,000 mcg in dextrose 5% (D5W) infusion ( std conc) 25 mcg/hr (03/20/18 192) furosemide (LASIX) 500 mg/ 50 mL IV drip (max conc) 20 mg/hr (03/20/181999 ) heparin (porcine) 20,000 Units in sodium chloride 0.9% (NS) 250 mL IV infusion (dbl conc) Stopped (03/20/18 164) insulin regular (NOVOLIN R) 100 Units in sodium chloride 0.9% (NS) 100 mL IV drip (std conc) 3.5 Units/hr (03/20/18 193) norepinephrine (LEVOPHED) 16 mg in sodium chloride 0.9% (NS) 250 mL IV drip (quad conc) Stopped (03/20/182046) propofol (DIPRIVAN) 10 mg/mL IV infusion 20 mcg/kg/min (03/20/181999) vasopressin (VASOSTRICT) 20 Units in sodium chloride 0.9% (NS) 100 mL IV drip (std conc) Stopped (03/20/1850) PRN and Respiratory Meds:acetaminophen Q4H PRN, aluminum/magnesium hydroxide Q4H PRN, diphenhydrAMINE Q4H PRN OR diphenhydrAMINE Q4H PRN, ondansetron ( ZOFRAN) IV Q6H PRN, pancrelipase 20,000 Units/ sodium bicarbonate 650 mg(#) PRN (Combination Window Installer from Rx) Vital Signs: Last Filed Vital Signs: 24 Hour Range ABP: 80/49 (03/19 2235) Temp: 36 C (96.8 F) (03/20 2000) Pulse: 77 (03/20 2019) Respirations: 15 PER MINUTE (03/20 2019) SpO2: 96 % (03/20 2019) O2 Delivery: Endotracheal Tube (Oral) (03/20 2000) Weight: 114.9 kg (253 lb 4.9 oz) (03/20 600) ABP: (80)/(49) Temp: [36 C (96.8 F)-37.1 C (98.8 F)] Pulse: [70-89] Respirations: [0 PER MINUTE-21 PER MINUTE] SpO2: [92 %-99 %] O2 Delivery: Endotracheal Tube (Oral) Intensity Pain Scale 0-10 (Pain 1): (not recorded) Vitals: 03/19/18 0808 03/19/18 0900 03/20/18 06 Weight: 116.8 kg (257 lb 8 oz) 115.7 kg (255 lb) 114.9 kg (253 lb 4.9 oz) Critical Care Vitals: Vigileo SVI (Calculated): 52 (03/20/18 1215) SVRI (Calculated): (!) 1341 (03/19/182234) ICP Monitoring: PA Catheter: PA Catheter Only PA Pressure: (!) 43/25 (03/20/181999) PA Mean (mm Hg): (!) 32 mm Hg (03/20/181999) CO: (!) 8.12 (03/20/181214) CO Method: Indirect Janay Calculation (03/20/181214) CI: 3.66 (03/20/181214) SVR (Calculated): (!) 610 (03/19/182234) SVRI (Calculated): (!) 1341 (03/19/182234) SV (Calculated): (!) 116 (03/20/181214) SVI (Calculated): 52 (03/20/181214) Hemodynamics/Oxycalcs: Hemodynamics/Oxycalcs Device Type: Standard PA Catheter (03/20/181214) PA Pressure: (!) 43/25 (03/20/181999) PA Mean (mm Hg): (!) 32 mm Hg (03/20/181999) CVP: (!) 20 MM HG (03/20/181999) CO: (!) 8.12 (03/20/181214) CO Method: Indirect Janay Calculation (03/20/181214) CI: 3.66 (03/20/181214) SVR (Calculated): (!) 610 (03/19/182234) SVRI (Calculated): (!) 1341 (03/19/182234) RVSWI (Calculated): 8 (03/20/181214) SV (Calculated): (!) 116 (03/20/181214) SVI (Calculated): 52 (03/20/181214) Intake/Output Summary: (Last 24 hours) Intake/Output Summary (Last 24 hours) at 03/20/182139 Last data filed at 03/20/181999 Gross per 24 hour Intake 1811.28 ml Output 3750 ml Net -1938.72 ml Physical Exam: General: Intubated, appears stated age, obese Lungs: Courese bilaterally Heart: Regular rate and rhythm, S1, S2 normal, no murmur, click rub or gallop Abdomen: Obese, hernia in midline, soft Extremities: Obese, edema, 1+ pulses, IABP in place in right femoral artery Peripheral pulses 1+ pulses Artificial airway: Endotracheal Tube Ventilator/ Respiratory Therapy: Yes: Mode: MMV Set Vt (ml): [500 milliliters] Tidal Volume Spont (mL): [478 milliliters-510 milliliters] Set RR: [15 breaths/minutes] Total Respiratory Rate (Breaths/Min): [15 breaths/minutes-16 breaths/minutes] O2%: [40 %] PIP Actual: [28 cm H20-40 cm H20] PEEP/CPAP: [8 cm H2O] PSupport: [10 cm H20] Vent weaning trial: Not applicable Drains: None Prophylaxis Review: Lines: Yes; Arterial Line; Indication: Frequent blood draws and Continuous BP monitoring; Location: Radial Central Line; Indication: Med not deliverable peripherally and Hemodynamic monitoring; Type: Internal jugular Urinary Catheter: Yes; Retain mc due to: Patient on diuretics, Need for accurate Intake and Output and Acute renal insufficiency or failure Antibiotic Usage: No VTE: Pharmacological prophylaxis; SQ Heparin Lab Review: Pertinent labs reviewed Point of Care Testing: (Last 24 hours): Glucose: (!) 137 (03/20/182009) POC Glucose (Download): (!) 128 (03/20/182105) Radiology and Other Diagnostic Procedures Review: Pertinent radiology reviewed. Bravo Anaya MD Pager [phone] * Jaycee Mcnair RN - 03/20/2018 4:30 PM CDT 1630 - Pt being cleaned up in bed when IABP became dislodged. Dr. Ac, Dr. Carver, and Dr. Jones to bedside. Heparin gtt paused. Pt's MAP >65 on 0.04 mcg/kg/min of levophed, refer to MAR. Dr. Caputo to bedside to pull IABP. Manual pressure held x45 minutes by cardiotech. DSTAT dressing applied to site. Hemostasis at 1743. Will monitor. * Jaycee Mcnair, TREVOR - 03/20/2018 12:47 PM CDT Formatting of this note may be different from the original. 03/20/18 1215 Basic Hemodynamic Monitoring Device Type Standard PA Catheter CO (!) 8.12 CO Method Indirect Janay Calculation CI 3.66 SV (Calculated) (!) 116 SVI (Calculated) 52 CVP (!) 19 MM HG Advanced Hemodynamic Monitoring PA Pressure (!) 41/24 PA Mean (mm Hg) (!) [address] Watts notified of JANAY results. Pt on dobutamine at 5 mcg/kg/min. * Shivani Bustos MBBS - 03/20/2018 8:51 AM CDT Formatting of this note may be different from the original. Progress Note Name: Farheen Gutierres Admission Date: 03/18/2018 Admission Diagnosis: cardiogenic shock Cardiogenic shock (HCC) Principal Problem: Cardiogenic shock (HCC) Active Problems: RYAN (acute kidney injury) (HCC) HLD (hyperlipidemia) Type II diabetes mellitus (HCC) Essential hypertension Hypothyroidism PAF (paroxysmal atrial fibrillation) (HCC) Junctional bradycardia Morbid obesity with BMI of 45.0-49.9, adult (HCC) Nonischemic cardiomyopathy (HCC) Acute systolic heart failure (HCC) Pulmonary edema Acute respiratory failure with hypoxia (HCC) Shock liver Hyponatremia Assessment/Plan: Farheen Gutierres is a 68 y.o. female with a history of Diabetes mellitus on insulin , Hypertension, Hyperlipidemia, Hypothyroidism, admitted for management of cardiogenic shock and acute decompensated Heart failure Acute Decompensated Heart Failure with Biventricular failure Cardiogenic shock -improving now requiring 2 pressors and IABP support Cardiomyopathy non ischemic Ddx- Takotsubo's, myocarditis, tachycardia induced, - LHC on 03/18 with normal coronaries, aortic pressure 72/46, LVEDP 22, LV 71/15 , no gradient - Echo OSH 03/18 - EF 10-15%, no regional wall motion abnormalities, systolic peak pressure 32 mmHg, LA + RA dilated, mild-mod TR and mild MR - IABP placed on 03/18, currently 1:1 - BNP 350 - RVP positive for parainfluenza 3 - echocardiogram 03/19/18 Severe global LV hypokinesis. Estimated ejection fraction 10-15%.Normal LV wall thicknesses. Severe RV hypokinesis. Septal motion consistent with RV volume overload. Severe Tricuspid regurgitation - Right heart cath numbers RA 25, RV 50/13, PA 50/28, mean 35, PCWP 25, PA saturation 65%, Cardiac output (Janay) 4.5, index 2.0 - continue Dobutamine @5, titrate down on levophed as able, - continue aggressive diuresis lasix ,gtt 20 mg/hr , give Diuril once - continue IABP 1: 1 for now - methylprednisolone 500 BID x 6 doses - follow up endomyocardial biopsy today - Continue with heparin gtt, - Trend lactic acid, - tentative ECMO evaluation by CTS, improved hemodynamics for now - repeat Echocardiogram on 03/21/18 Diuretic Therapy Prior to admission dose none Given on admission Lasix gtt 5 , Daily Dosing 03/19 Lasix gtt 20, diuril x1, 03/20 lasix gtt 20 diuril x 1 Paroxysmal atrial Fibrillation - Unstable junctional bradycardia episode on 03/18 ( while on amiodarone) at OSH s/p atropine x 2 - NSR on admission with second episode of Junctional bradycardia to HR 50s on without hemodynamic instability - NSR with frequent PVCs , avoid amiodarone, precedex for now - Pacemaker may be a back up option if episodes recurrent, ,monitor for now Acute Hypoxic Respiratory Failure Pulmonary edema - Intubated outside hospital for acute respiratory failure - ABG on admission 7.32 / 36 / 195 / 19.2 / 99.4 > Continue mechanical ventilation > Wean off ventilator as able GI Shock liver vs congestive hepatopathy Supportive care as above Nutrition - continue Tube feeds Constipation Continue bowel regimen senna alice, miralax BID scheduled ID GPC bacteremia 1 BCx bottle positive for staph and 2 blood cx bottles positive for strep - started on vancomycin and cefepime last night due to tenuous status - continue for now, - possibility of contaminant - repeat Cultures sent - await final cx Renal Acute Kidney Injury - likely cardiorenal - Unknown baseline, Creatinine on admission 1.7 and previous BMP with 1.3 > Accurate I/Os > diuresis as above Hyponatremia - hypervolemic hyponatremia - diuresis as above Hypothyrodism > Continue replacement HTN > Not on therapy due to hypotension 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 female.intubated and sedated this AM Objective: Vital Signs: Last Filed Vital Signs: 24 Hour Range BP: 112/50 (03/19 900) Temp: 36 C (96.8 F) (03/20 700) Pulse: 76 (03/20 816) Respirations: 15 PER MINUTE (03/20 816) SpO2: 95 % (03/20 816) O2 Delivery: Endotracheal Tube (Oral) (03/20 400) SpO2 Pulse: 129 (03/20 700) Height: 167.6 cm (66") (03/19 900) BP: (112)/(50) ABP: (80)/(49) Temp: [35.8 C (96.4 F)-37.3 C (99.1 F)] Pulse: [50-82] Respirations: [0 PER MINUTE-16 PER MINUTE] SpO2: [92 %-100 %] O2 Delivery: Endotracheal Tube (Oral) Intake/Output Summary (Last 24 hours) at 03/20/18 0851 Last data filed at 03/20/18 08 Gross per 24 hour Intake 2703.05 ml Output 4450 ml Net -1746.95 ml PHYSICAL EXAMINATION: GENERAL: Intubated but opening eyes intermittently, Patient is in no acute distress HEENT: Atraumatic / Normocephalic, no obvious deformities, cornea/ conjunctiva clear, normal external ears and nose, no lymphadenopathy and thyroid enlargement , JVD difficult to assess given bodily habitus, ETT in place Lungs: rales bilaterally Heart: S1 and S2 of normal intensity without any added heart sounds Abdomen: Soft, non tender, no organomegaly, bowel sounds audible Skin: No abnormal skin rash, no alopecia Neurologic: Unable to assess Extremities: No visible deformities, Spontaneously moving extremities and to command, pulses palpable, trace edema LABS: Recent Labs 03/19/18 0015 03/19/18 0400 03/19/18 1355 03/19/18 2131 03/20/18 0400 NA 124* 125* 124* 123* 124* K 4.0 3.9 4.2 3.9 3.7 CL 95* 94* 94* 92* 92* CO2 17* 19* 20* 20* 21 GAP 12 12 10 11 11 BUN 45* 45* 46* 43* 43* CR 1.71* 1.71* 1.69* 1.64* 1.55* GLU 292* 291* 281* 260* 263* CA 7.8* 8.0* 8.1* 8.2* 8.4* ALBUMIN 3.5 3.4* 3.7 3.6 3.3* MG 1.6 1.8 2.3 2.1 2.0 HGBA1C -- 6.6* -- -- -- TSH 6.450* -- -- -- -- Recent Labs 03/19/18 0015 03/19/18 0400 03/19/18 0630 03/19/18 1136 03/19/18 1355 03/19/18 2131 03/20/18 0045 03/20/18 0400 03/20/18 0723 WBC 15.9* 15.1* -- -- -- -- -- 11.6* -- HGB 13.6 13.4 -- -- -- -- -- 12.5 -- HCT 41.3 40.1 -- -- -- -- -- 38.1 -- PLTCT 148* 140* -- -- -- -- -- 109* -- INR 1.9* -- -- -- -- -- -- -- -- PTT 29.4 -- 92.7* 128.2* -- -- 84.2* -- 109.8* AST 363* 285* -- -- 182* 128* -- 97* -- ALT 390* 365* -- -- 370* 322* -- 269* -- ALKPHOS 46 44 -- -- 49 47 -- 41 -- TNI 0.02 -- -- -- -- -- -- -- -- Estimated Creatinine Clearance: 45.9 mL/min (A) (based on SCr of 1.55 mg/dL (H)) . Vitals: 03/19/18 0808 03/19/18 0900 03/20/18 0600 Weight: 116.8 kg (257 lb 8 oz) 115.7 kg (255 lb) 114.9 kg (253 lb 4.9 oz) Recent Labs 03/20/18 0044 03/20/18 0400 PHART 7.45 7.41 PO2ART 105* 106* MEDS cefepime (MAXIPIME) IVPB 1 g Intravenous Q8H* chlorhexidine gluconate 15 mL Swish & Spit BID(8-20) insulin aspart U-100 0-14 Units Subcutaneous ACHS insulin glargine 18 Units Subcutaneous BID levothyroxine 125 mcg Per NG tube QDAY(07) methylPREDNISolone (SOLU-MEDROL) IV 500 mg Intravenous Q12H* pantoprazole 40 mg Intravenous BID(11-) PARoxetine 40 mg Per NG tube QDAY vancomycin IVPB 15 mg/kg Intravenous Q24H* And vancomycin, pharmacy to manage 1 each Service Per Pharmacy IV MEDS dexmedetomidine (PRECEDEX) 400 mcg in sodium chloride 0.9% (NS) 100 mL IV infusion Stopped (03/19/18 1254) DOBUTamine (DOBUTREX) 1,000 mg in sodium chloride 0.9% (NS) 250 mL IV drip ( std conc) 5 mcg/kg/min (03/20/18 0750) DOPamine 800 mg/D5W 250 mL infusion (dbl conc)(premade) fentaNYL citrate PF (SUBLIMAZE) 1,000 mcg in dextrose 5% (D5W) infusion ( std conc) 25 mcg/hr (03/20/18 0719) furosemide (LASIX) 500 mg/ 50 mL IV drip (max conc) 20 mg/hr (03/20/18 0750 ) heparin (porcine) 20,000 Units in dextrose 5% (D5W) 250 mL IV infusion (dbl conc) 1,600 Units/hr (03/20/18 0720) norepinephrine (LEVOPHED) 16 mg in dextrose 5% (D5W) 250 mL IV drip (quad conc) 0.04 mcg/kg/min (03/20/18 0742) propofol (DIPRIVAN) 10 mg/mL IV infusion 20 mcg/kg/min (03/20/18 0838) sodium chloride 0.9 % infusion Stopped (03/19/18 1100) vasopressin (VASOSTRICT) 20 Units in sodium chloride 0.9% (NS) 100 mL IV drip (std conc) Stopped (03/20/18 0051) Prnacetaminophen Q4H PRN, aluminum/magnesium hydroxide Q4H PRN, diphenhydrAMINE Q4H PRN OR diphenhydrAMINE Q4H PRN, ondansetron (ZOFRAN) IV Q6H PRN, pancrelipase 20,000 Units/ sodium bicarbonate 650 mg(#) PRN (Combination Window Installer from Rx), polyethylene glycol 3350 BID PRN Associated attestation - Alem Jones MD - 03/22/2018 2:44 PM CDT Staff Physician Attestation: I have personally interviewed and examined the patient, have reviewed the EMR & all pertinent medical documentation, and agree with the assessment & plan as outlined by the resident. Brandon Jones M.D No acute events overnight. Remains hemodynamically stable. Blood cultures unfortunately came back positive, 2 out of 2 for staph, 1 out of 2 for strep. Patient with infiltrate noted on chest x-ray, concern for possible pneumonia. I spoke with Dr. hernandez with pathology regarding endomyocardial biopsy obtained yesterday. There is no evidence for myocarditis whatsoever. There is no suggestion of amyloid. There is myocyte vascularization, nonspecific finding, possibly suggestive of ischemia. There is notably extensive fibrosis. was updated on rounds, I will update him with the biopsy results. Urine output yesterday 4.3 L furosemide 20 mg/h drip and 2 doses of chlorothiazide. Assessment 1. Chest x-ray concerning for pneumonia 2. Blood cultures positive for staph possibly stress (1 out of 2 bottles) 3. Biventricular failure, acute decompensated combined failure 4. Myocarditis ruled out with endomyocardial biopsy 5. Hypoxic respiratory failure secondary to possible pneumonia and heart failure 6. AK I, cardiorenal, stable 7. Paroxysmal atrial fibrillation, sinus rhythm since admission, PACs. Brief episode of junctional bradycardia yesterday Plan 1. PA catheter for 2 days more 2. Discontinuing steroids, empirically we have been treating myocarditis, no evidence of such on biopsy done yesterday 3. We need to unload the RV dramatically, continue aggressive diuresis, Lasix drip with intermittent chlorothiazide 4. Insulin drip for now, tube feeds started, should see better glycemic control off high-dose steroids 5. Heparin drip for now, may DC in the next 1-2 days 6. Will consider weaning balloon pump tomorrow This patient remains critically ill, I spent 40 minutes in managing her care, adjusting medications, managing hemodynamics, examining patient, and discussing with consultants and family * Karen Nichols, TREVOR - 03/20/2018 12:52 AM CDT Formatting of this note may be different from the original. 03/19/18 2235 Basic Hemodynamic Monitoring Device Type Standard PA Catheter CO (!) 3.98 CO Method Indirect Janay Calculation CI (!) 1.79 SV (Calculated) (!) 56 SVI (Calculated) (!) 25 CVP (!) 29 MM HG SVR (Calculated) (!) 610 SVRI (Calculated) (!) 1341 Advanced Hemodynamic Monitoring PA Pressure (!) 45/30 PA Mean (mm Hg) (!) 36 mm Hg RVSWI (Calculated) (!) 2 Dr. Johnson notified of above results. Pt currently on levophed 0.05 mcg/kg/min, dobutamine 5 mcg/kg/min and vasopressin 2.4 units/hr. Continue to monitor. * Elieser Valdivia, ÁNGELD - 03/19/2018 8:32 PM CDT Formatting of this note may be different from the original. Pharmacy Vancomycin Note Subjective: Farheen Gutierres is a 68 y.o. female being treated for Bacteremia. Objective: Current Vancomycin Orders Medication Dose Route Frequency vancomycin (VANCOCIN) 1,750 mg in dextrose 5% (D5W) IVPB 15 mg/kg Intravenous Q24H* And vancomycin, pharmacy to manage 1 each Service Per Pharmacy Day of Vancomycin therapy: 1 Additional Abx: cefepime Cultures: , , , White Blood Cells Date/Time Value Ref Range Status 03/19/2018 0400 15.1 (H) 4.5 - 11.0 K/UL Final 03/19/2018 0015 15.9 (H) 4.5 - 11.0 K/UL Final Creatinine Date/Time Value Ref Range Status 03/19/2018 1355 1.69 (H) 0.4 - 1.00 MG/DL Final 03/19/2018 0400 1.71 (H) 0.4 - 1.00 MG/DL Final 03/19/2018 0015 1.71 (H) 0.4 - 1.00 MG/DL Final Blood Urea Nitrogen Date/Time Value Ref Range Status 03/19/2018 1355 46 (H) 7 - 25 MG/DL Final Estimated CrCl: 42.3 Intake/Output Summary (Last 24 hours) at 03/19/182031 Last data filed at 03/19/181999 Gross per 24 hour Intake 2440.07 ml Output 2460 ml Net -19.93 ml UOP: Actual Weight: 115.7 kg (255 lb) Dosing BW: 115.7 kg Drug Levels: No results found for: VANCOMYCIN TROUGH, VANCOMYCIN RANDOM Assessment: Target levels for this patient: 15-20. Evaluation of level(s): n/a Plan: 1. Initiate vancomycin 1750mg q24 hours. 2. Next scheduled level(s): Morning team to assess and order level. 3. Pharmacy will continue to monitor and adjust therapy as needed. Elieser Valdivia, PHARMD 03/19/2018 * Prisca Zapien, TREVOR - 03/19/2018 6:[address] Anaya updated on pt status. Order to hold tube feed starting this evening on current IV supports. Will re-assess in the morning. Heparin infusion to re-start at last rate adjustment. Will check PTT in 6 hours. * Prisca Zapien, TREVOR - 03/19/2018 6:07 PM CDT 1705 - Pt returned from CCL with left central IJ triple lumen and right IJ swan locked at 54 cm. Tolerated well. Levophed changed to new quad concentration. Propofol increased to 20 mcg/kg/min. All other drips at current rates. Dr. Jones and Dr. Gray at bedside and spoke with about plan of care. Orders for steroids and diuril. If blood sugars are unable to be controlled on current regimen with introduction of steroids, Dr. Jones okay with starting insulin infusion. * Bravo Anaya MD - 03/19/2018 5:45 PM CDT Formatting of this note may be different from the original. Critical Care Progress Note Today's Date: 03/19/2018 Name: Farheen Gutierres Admission Date: 03/18/2018 LOS: 1 day Assessment/Plan: Principal Problem: Cardiogenic shock (HCC) Active Problems: RYAN (acute kidney injury) (HCC) HLD (hyperlipidemia) Type II diabetes mellitus (HCC) Essential hypertension Hypothyroidism PAF (paroxysmal atrial fibrillation) (HCC) Junctional bradycardia Morbid obesity with BMI of 45.0-49.9, adult (HCC) Nonischemic cardiomyopathy (HCC) Acute systolic heart failure (HCC) Pulmonary edema Acute respiratory failure with hypoxia (HCC) Shock liver Hyponatremia ATTESTATION Date of Service: 03/19/2018 I have seen, personally fully evaluated, and discussed patient with the [facility] ICU team. The patient is critically ill with cardiogenic shock. I spent 95 minutes (excluding time spent performing or supervising any procedures) providing and personally directing critical care services including ventilator management, pain mgt, hemodynamic monitoring and management, lab and radiology review, medication review and management, fluid and electrolyte management and coordination of care. Comfortably sedated but fully intact. HR did not tolerate Precedex so will cont with propofol and fentanyl. Remains in profound cardiogenic shock. Unclear etiology. Endomyocardial bx today. Cont dobutamine, levo, vasopressin for support. Cont IABP at 1:1 for now. Biventricular dysfunction without significant LV dilation. Coronaries clean at OSH. No further a-fib but did have episode of junctional bradycardia that was not well tolerated. Cont to hold amio. Arrived intubated. Still with lots of pulm edema. No plans for vent weaning until aggressively diureses and IABP out. Creat 1.7. Unknown baseline. Needs aggressive diuresis. Unclear duration of hyponatremia. Hypervolemic. Watch other lytes with diuresis. H/H stable. IV heparin for recent cardioversion. No signs of bleeding. IDDM. Will likely need insulin gtt with steroids to start tonight. Monitor closely and low threshold for insulin gtt. NPO while intubated. Will hold on enteral nutrition for today due to profound shock state. Transaminitis likely from cardiogenic shock. Monitor closely. WBC up some but afebrile and no other clear signs of infection. Will hold on abx for now but low threshold to initiate due to critical state. This patient is critically ill with dysfunction of multiple organ systems and is at risk for additional life threatening deterioration. Cont ICU care. Discussed with throughout the day. Guarded prognosis. Staff name: Bravo Anaya MD Date: 03/19/2018 __ Subjective: Farheen Gutierres is a 68 y.o. female. Admitted overnight from OSH for cardiogenic shock from new found cardiomyopathy. Objective: Medications: Scheduled Meds: cefepime (MAXIPIME) 1 g/50 ml iso-osmotic IVPB 1 g Intravenous Q8H* chlorhexidine gluconate (PERIDEX) 0.12 % solution 15 mL 15 mL Swish & Spit BID(8 -20) insulin aspart U-100 (NOVOLOG FLEXPEN) injection PEN 0-14 Units 0-14 Units Subcutaneous ACHS insulin glargine (LANTUS SOLOSTAR, BASAGLAR) injection PEN 18 Units 18 Units Subcutaneous BID levothyroxine (SYNTHROID) tablet 125 mcg 125 mcg Per NG tube QDAY(07) magnesium sulfate 1 g/D5W 100 mL IVPB 1 g Intravenous ONCE methylPREDNISolone (SOLU-MEDROL) 500 mg in sodium chloride 0.9% (NS) 58 mL IVPB 500 mg Intravenous Q12H* pantoprazole (PROTONIX) injection 40 mg 40 mg Intravenous BID(-) PARoxetine (PAXIL) tablet 40 mg 40 mg Per NG tube QDAY potassium chloride SR (K-DUR) tablet 40 mEq 40 mEq Oral BID w/meals vancomycin (VANCOCIN) 1,750 mg in dextrose 5% (D5W) IVPB 15 mg/kg Intravenous Q24H* And vancomycin, pharmacy to manage 1 each Service Per Pharmacy WATER FOR INJECTION, STERILE IJ SOLN (Cabinet Override) NOW Continuous Infusions: dexmedetomidine (PRECEDEX) 400 mcg in sodium chloride 0.9% (NS) 100 mL IV infusion Stopped (03/19/18 1254) DOBUTamine (DOBUTREX) 1,000 mg in sodium chloride 0.9% (NS) 250 mL IV drip ( std conc) 5 mcg/kg/min (03/19/18 1730) DOPamine 800 mg/D5W 250 mL infusion (dbl conc)(premade) fentaNYL citrate PF (SUBLIMAZE) 1,000 mcg in dextrose 5% (D5W) infusion ( std conc) 25 mcg/hr (03/19/18 1948) furosemide (LASIX) 500 mg/ 50 mL IV drip (max conc) 20 mg/hr (03/19/180 ) heparin (porcine) 20,000 Units in dextrose 5% (D5W) 250 mL IV infusion (dbl conc) 1,600 Units/hr (03/19/181946) norepinephrine (LEVOPHED) 16 mg in dextrose 5% (D5W) 250 mL IV drip (quad conc) 0.1 mcg/kg/min (03/19/181811) propofol (DIPRIVAN) 10 mg/mL IV infusion 20 mcg/kg/min (03/19/181937) sodium chloride 0.9 % infusion Stopped (03/19/18 1100) vasopressin (VASOSTRICT) 20 Units in sodium chloride 0.9% (NS) 100 mL IV drip (std conc) 2.4 Units/hr (03/19/181815) PRN and Respiratory Meds:acetaminophen Q4H PRN, aluminum/magnesium hydroxide Q4H PRN, diphenhydrAMINE Q4H PRN OR diphenhydrAMINE Q4H PRN, ondansetron ( ZOFRAN) IV Q6H PRN, pancrelipase 20,000 Units/ sodium bicarbonate 650 mg(#) PRN (Combination Window Installer from Rx), polyethylene glycol 3350 BID PRN Vital Signs: Last Filed Vital Signs: 24 Hour Range BP: 112/50 (03/19 900) ABP: 108/55 (03/19 139) Temp: 37.3 C (99.1 F) (03/19 2002) Pulse: 75 (03/19 2002) Respirations: 10 PER MINUTE (03/19 2002) SpO2: 98 % (03/19 2002) O2 Delivery: Endotracheal Tube (Oral) (03/19 1800) Height: 167.6 cm (66") (03/19 900) Weight: 115.7 kg (255 lb) (03/19 900) BP: (112)/(50) ABP: (107-136)/(29-60) Temp: [35.8 C (96.4 F)-37.3 C (99.1 F)] Pulse: [50-82] Respirations: [0 PER MINUTE-17 PER MINUTE] SpO2: [96 %-100 %] O2 Delivery: Endotracheal Tube (Oral) Intensity Pain Scale 0-10 (Pain 1): (not recorded) Vitals: 03/18/18 2300 03/19/18 0808 03/19/18 0900 Weight: 116 kg (255 lb 11.7 oz) 116.8 kg (257 lb 8 oz) 115.7 kg (255 lb) Critical Care Vitals: ICP Monitoring: PA Catheter: PA Catheter Only PA Pressure: (!) 46/32 (03/19/181999) PA Mean (mm Hg): (!) 37 mm Hg (03/19/181999) Hemodynamics/Oxycalcs: Hemodynamics/Oxycalcs PA Pressure: (!) 46/32 (03/19/181999) PA Mean (mm Hg): (!) 37 mm Hg (03/19/181999) CVP: (!) 28 MM HG (03/19/181999) Intake/Output Summary: (Last 24 hours) Intake/Output Summary (Last 24 hours) at 03/19/182055 Last data filed at 03/19/181999 Gross per 24 hour Intake 2440.07 ml Output 2460 ml Net -19.93 ml Physical Exam: General: Intubated, appears stated age, obese Lungs: Courese bilaterally Heart: Regular rate and rhythm, S1, S2 normal, no murmur, click rub or gallop Abdomen: Obese, hernia in midline, soft Extremities: Obese, edema, 1+ pulses, IABP in place in right femoral artery Peripheral pulses 1+ pulses Artificial airway: Endotracheal Tube Ventilator/ Respiratory Therapy: Yes: Mode: P/AC Tidal Volume Spont (mL): [59 milliliters-1097 milliliters] Set RR: [14 breaths/minutes] Total Respiratory Rate (Breaths/Min): [16 breaths/minutes-20 breaths/minutes] O2%: [40 %-60 %] PIP (set): [15 cm H20] PIP Actual: [15 cm H20-18 cm H20] PEEP/CPAP: [10 cm H2O] Delta P/PControl (PIP-PEEP)(calc): [5 cm H2O] Plateau Pressure: [15 cm H2O] Vent weaning trial: Not applicable Drains: None Prophylaxis Review: Lines: Yes; Arterial Line; Indication: Frequent blood draws and Continuous BP monitoring; Location: Radial Central Line; Indication: Med not deliverable peripherally and Hemodynamic monitoring; Type: Internal jugular Urinary Catheter: Yes; Retain mc due to: Patient on diuretics, Need for accurate Intake and Output and Acute renal insufficiency or failure Antibiotic Usage: No VTE: Pharmacological prophylaxis; SQ Heparin Lab Review: Pertinent labs reviewed Point of Care Testing: (Last 24 hours): Glucose: (!) 281 (03/19/18 1355) POC Glucose (Download): (!) 218 (03/19/18 1801) Radiology and Other Diagnostic Procedures Review: Pertinent radiology reviewed. Bravo Anaya MD Pager [phone] * Shivani Bustos MBBS - 03/19/2018 5:36 PM CDT Formatting of this note may be different from the original. Progress Note Name: Farheen Gutierres Admission Date: 03/18/2018 Admission Diagnosis: cardiogenic shock Cardiogenic shock (HCC) Principal Problem: Cardiogenic shock (HCC) Active Problems: RYAN (acute kidney injury) (HCC) HLD (hyperlipidemia) Type II diabetes mellitus (HCC) Essential hypertension Hypothyroidism PAF (paroxysmal atrial fibrillation) (HCC) Junctional bradycardia Morbid obesity with BMI of 45.0-49.9, adult (HCC) Nonischemic cardiomyopathy (HCC) Acute systolic heart failure (HCC) Pulmonary edema Acute respiratory failure with hypoxia (HCC) Shock liver Hyponatremia Assessment/Plan: Farheen Gutierres is a 68 y.o. female with a history of Diabetes mellitus on insulin , Hypertension, Hyperlipidemia, Hypothyroidism, admitted for management of cardiogenic shock and acute decompensated Heart failure Acute Decompensated Heart Failure with Biventricular failure Cardiogenic shock requiring 3 pressors and IABP support Cardiomyopathy non ischemic Ddx- Takotsubo's, myocarditis, tachycardia induced, - LHC on 03/18 with normal coronaries, aortic pressure 72/46, LVEDP 22, LV 71/15 , no gradient - Echo 03/18 - EF 10-15%, no regional wall motion abnormalities, systolic peak pressure 32 mmHg, LA + RA dilated, mild-mod TR and mild MR - IABP placed on 03/18, currently 1:1 - Lactic acid on admission 2.9, WBC 15, trops 0.02 and BNP 350 - CXR on admission cardiomegaly with pulmonary venous Congestion - RVP positive for parainfluenza 3 - echocardiogram 03/19/18 Severe global LV hypokinesis. Estimated ejection fraction 10-15%.Normal LV wall thicknesses. Severe RV hypokinesis. Septal motion consistent with RV volume overload. Severe Tricuspid regurgitation - Was on Dopamine 20, dobutamine 10, phenyl 9, NS 200/hr ---> switched to Dobutamine @5, levophed, vasopressin, dopamine titrating off - start aggressive diuresis lasix , increase lasix to 20 mg/hr , s/p 40 mg IV bolus - Continue with heparin gtt, ongoing PTT monitoring - Trend lactic acid, - RHC and endomyocardial biopsy today - Right heart cath numbers RA 25, RV 50/13, PA 50/28, mean 35, PCWP 25, PA saturation 65%, Cardiac output (Janay) 4.5, index 2.0 - Endomyocardial biopsy 3 without complication, limited echo completion of case, no perforation, no effusion - start steroids methylprednisolone 500 BID x 6 doses - ECMO evaluation by CTS, Paroxysmal atrial Fibrillation Currently in sinus rhythm - heparin gtt - sinus bradycardia to 40s this afternoon that resolved without intervention - No precedex, monitor for now Acute Hypoxic Respiratory Failure Pulmonary edema - Intubated outside hospital for acute respiratory failure - ABG on admission 7.32 / 36 / 195 / 19.2 / 99.4 > Continue mechanical ventilation > Wean off ventilator as able GI Shock liver vs congestive hepatopathy Supportive care as above Nutrition - start on Tube feeds today Renal Acute Kidney Injury - Unknown baseline, Creatinine on admission 1.7 and previous BMP with 1.3 - Differentials cardiorenal vs post renal vs intrinsic > Accurate I/Os > diuresis as above Hyponatremia - hypervolemic hyponatremia - diuresis as above Hypothyrodism > Continue replacement HTN > Not on therapy due to hypotension 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 female.intubated and sedated this AM Objective: Vital Signs: Last Filed Vital Signs: 24 Hour Range BP: 112/50 (03/19 0900) Temp: 37 C (98.6 F) (03/19 1200) Pulse: 82 (03/19 1400) Respirations: 0 PER MINUTE (03/19 1302) SpO2: 99 % (03/19 1400) O2 Delivery: Endotracheal Tube (Oral) (03/19 1200) SpO2 Pulse: 82 (03/19 1400) Height: 167.6 cm (66") (03/19 0900) BP: (112)/(50) ABP: (107-136)/(29-60) Temp: [36.4 C (97.5 F)-37 C (98.6 F)] Pulse: [50-82] Respirations: [0 PER MINUTE-17 PER MINUTE] SpO2: [96 %-100 %] O2 Delivery: Endotracheal Tube (Oral) Intake/Output Summary (Last 24 hours) at 03/19/18 1736 Last data filed at 03/19/18 1500 Gross per 24 hour Intake 2060.77 ml Output 1510 ml Net 550.77 ml PHYSICAL EXAMINATION: GENERAL: Intubated but opening eyes intermittently, Patient is in no acute distress HEENT: Atraumatic / Normocephalic, no obvious deformities, cornea/ conjunctiva clear, normal external ears and nose, no lymphadenopathy and thyroid enlargement , JVD difficult to assess given bodily habitus, ETT in place Lungs: rales bilaterally Heart: S1 and S2 of normal intensity without any added heart sounds Abdomen: Soft, non tender, no organomegaly, bowel sounds audible Skin: No abnormal skin rash, no alopecia Neurologic: Unable to assess Extremities: No visible deformities, Spontaneously moving extremities and to command, pulses palpable, trace edema LABS: Recent Labs 03/19/18 0015 03/19/18 0400 03/19/18 1355 NA 124* 125* 124* K 4.0 3.9 4.2 CL 95* 94* 94* CO2 17* 19* 20* GAP 12 12 10 BUN 45* 45* 46* CR 1.71* 1.71* 1.69* GLU 292* 291* 281* CA 7.8* 8.0* 8.1* ALBUMIN 3.5 3.4* 3.7 MG 1.6 1.8 2.3 HGBA1C -- 6.6* -- TSH 6.450* -- -- Recent Labs 03/19/18 0015 03/19/18 0400 03/19/18 0630 03/19/18 1136 03/19/18 1355 WBC 15.9* 15.1* -- -- -- HGB 13.6 13.4 -- -- -- HCT 41.3 40.1 -- -- -- PLTCT 148* 140* -- -- -- INR 1.9* -- -- -- -- PTT 29.4 -- 92.7* 128.2* -- AST 363* 285* -- -- 182* ALT 390* 365* -- -- 370* ALKPHOS 46 44 -- -- 49 TNI 0.02 -- -- -- -- Estimated Creatinine Clearance: 42.3 mL/min (A) (based on SCr of 1.69 mg/dL (H)) . Vitals: 03/18/18 2300 03/19/18 0808 03/19/18 0900 Weight: 116 kg (255 lb 11.7 oz) 116.8 kg (257 lb 8 oz) 115.7 kg (255 lb) Recent Labs 03/19/18 0055 03/19/18 0420 PHART 7.32* 7.35 PO2ART 195* 102* MEDS chlorhexidine gluconate 15 mL Swish & Spit BID(8-20) chlorothiazide 500 mg Intravenous ONCE insulin aspart U-100 0-14 Units Subcutaneous ACHS insulin glargine 18 Units Subcutaneous BID levothyroxine 125 mcg Per NG tube QDAY(07) magnesium sulfate 1 g Intravenous ONCE methylPREDNISolone (SOLU-MEDROL) IV 500 mg Intravenous Q12H* pantoprazole 40 mg Intravenous BID(11-) PARoxetine 40 mg Per NG tube QDAY potassium chloride SR 40 mEq Oral BID w/meals water (sterile) for injection NOW IV MEDS dexmedetomidine (PRECEDEX) 400 mcg in sodium chloride 0.9% (NS) 100 mL IV infusion Stopped (03/19/18 1254) DOBUTamine (DOBUTREX) 1,000 mg in sodium chloride 0.9% (NS) 250 mL IV drip ( std conc) DOPamine 800 mg/D5W 250 mL infusion (dbl conc)(premade) fentaNYL citrate PF (SUBLIMAZE) 1,000 mcg in dextrose 5% (D5W) infusion ( std conc) 25 mcg/hr (03/19/18 1301) furosemide (LASIX) 500 mg/ 50 mL IV drip (max conc) 20 mg/hr (03/19/18 1200 ) heparin (porcine) 20,000 Units in dextrose 5% (D5W) 250 mL IV infusion (dbl conc) norepinephrine (LEVOPHED) 16 mg in dextrose 5% (D5W) 250 mL IV drip (quad conc) propofol (DIPRIVAN) 10 mg/mL IV infusion 10 mcg/kg/min (03/19/18 1200) sodium chloride 0.9 % infusion Stopped (03/19/18 1100) vasopressin (VASOSTRICT) 20 Units in sodium chloride 0.9% (NS) 100 mL IV drip (std conc) 2.4 Units/hr (03/19/18 1200) Prnacetaminophen Q4H PRN, aluminum/magnesium hydroxide Q4H PRN, diphenhydrAMINE Q4H PRN OR diphenhydrAMINE Q4H PRN, ondansetron (ZOFRAN) IV Q6H PRN, pancrelipase 20,000 Units/ sodium bicarbonate 650 mg(#) PRN (Combination Window Installer from Rx), polyethylene glycol 3350 BID PRN * Alem Jones MD - 03/19/2018 5:26 PM CDT Update Patient to skilled laborer today for RHC, endomyocardial biopsy with Dr. Gray. Right heart cath numbers RA 25 RV 50/13 PA 50/28, mean 35 PCWP 25 PA saturation 65% Cardiac output (Janay) 4.5, index 2.0 Endomyocardial biopsy 3 without complication, limited echo completion of case , no perforation, no effusion We will deliver 500 mg IV Solu-Medrol every 12 hours 6 doses with presumed diagnosis of myocarditis, first dose now Needs aggressive diuresis, chlorothiazide 500 mg IV 1 now, continue Lasix drip at 20, RV needs to be unloaded I have discussed case briefly with Dr. Hernandez, will consider ECMO as backup * Prisca Zapien RN - 03/19/2018 4:59 PM CDT Spoke with RN from infection control about positive parainfluenza3 positive result. Instructed to put patient in contact isolation and wear mask if doing any open procedures or open suctioning with ET tube. * Prisca Zapien, TREVOR - 03/19/2018 3:11 PM CDT Pt to CCL for biopsy and swan placement with Dr. Gray. Dr. Gray, Dr. Anaya and Dr. Jones spoke with and signed consent at bedside. Will implement diuril order upon return. IABP 1:1; ventilator per RT. Dopamine, Dobutamine, Levophed, Vasopressin, Fentanyl, Propofol, and lasix infusing upon departure. supported and waiting in room. * Jessika Cruz - 03/19/2018 1:57 PM CDT Physiognomist Note: Admit Date: 03/18/2018 Reason for Visit: Physiognomist referral (1). Physiognomist met with patient's , Niharika. Patient is on a vent and balloon pump, not able to participate in visit. Farheen/Judaism: said that neither he nor patient have a muslim affiliation and that its not an important part of their life. Source of Purpose/Meaning: , who is an director electrical engineering, said that he and patient met in the when they were both serving in the [employer]. 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 also talked about the importance of grandchildren in their lives. said that his son from a previous relationship about 4 years ago, when his own son was about 9 years old. said that patient was able to quit work and help with this grandson. Their [id number] has remarried and has had another child; patient and are very involved in both grandchildren's lives. Worries/Concerns/Struggles: is struggling with patient's condition and his feelings of helplessness. talked about the uncertainty of patient's situation and his hope that she will be able to breath on her own and not be dependent on machines. indicated that patient's health situation was not anticipated. He shared details of what led to patient's hospitalization and transfer to [facility]. seems to be focusing on details that will give him signs of hope. He talked several times about his hope that "when they get the water off her," she will improve. Method(s) of Coping: is having difficulty coping. As noted above, he is struggling with feelings of helplessness. He was open and willing to talk about patient's situation, which seemed helpful. Support System: Patient and live in [place], [place]. said he does not have friends or relatives in the area to stay with. He does have a friend who works in the area who will be stopping by to visit later today. said he is updating people via text message. Interventions/Plan: Physiognomist listened empathically, offering support and attempting to normalize 's feelings related to uncertainty and helplessness. Physiognomist explored sources of meaning and coping for patient and . Physiognomist guided life and health review and affirmed the love patient and share. Physiognomist also encouraged to be attentive to his own self care. Physiognomist will continue to follow for spiritual and emotional support. Please page or use consult order if family requests visit. Date/Time: User: Pager: [phone] 03/19/2018 1:57 PM Jessika Cruz * Prisca Zapien RN - 03/19/2018 1:[address] Jones at bedside to discuss cardiac biopsy with . Heparin has been off; procedure to be performed this afternoon. Dr. Jones updated on minimal urine output response to lasix bolus and increases. No further changes or interventions at this time. * Prisca Zapine RN - 03/19/2018 1:[address] Anaya informed HR in 80s and BP 120-130s; okay to resume weaning dopamine. * Prisca Zapien RN - 03/19/2018 1:[address] Jones called and informed RN patient is going for heart biopsy today and he will come talk to . Informed RN to turn off heparin. Heparin already off per high PTT for about twenty minutes. Informed Dr. Jones about bradycardic episode and RN re-starting dopamine, decreasing fentanyl and stopping precedex. * Prisca Zapien RN - 03/19/2018 12:30 PM CDT Pt had bradycardic episode into 40s. Dr. Anaya paged. RN stopped precedex and re-started dopamine at 3 mcg/kg/min. MAP to 50s, but recovering to 60s with dopamine re-start. Dr. Anaya at bedside and informed RN to keep precedex off and use propofol as needed. Cut fentanyl to 25 mcg/hr.and continue to monitor. * Prisca Zapien RN - 03/19/2018 10:[address] Jones, Dr. Anaya and team at bedside and updated RN and on pt status. Pt to remain intubated and sedated with IABP for next few days. RN to wean dopamine for MAP 65. Increase lasix to 20 mg/hr. Principal Examiner requested orders for Nystatin for excoriation and yeast under left breast and oral thrush. * Prisca Zapien RN - 03/19/2018 10:[address] Anaya informed RN to start vasopressin and attempt to wean off levophed for MAP of 65. * Prisca Zapien RN - 03/19/2018 9:[address] Anaya notified that patient agitated and nodding yes to pain. RN went up to 1.2 mcg/kg/min on precedex. Orders received for fentanyl IV push and infusion. RN to replace OG tube due proximal to stomach. * Prisca Zapien RN - 03/19/2018 8:30 AM CDT Initial patient assessment completed, refer to flowsheet for details. Admission skin assessment completed by: Prisca Zapien RN and Von Vicente RN Pressure Injury Present on Hospital Admission (within 24 hours): No 1. Occiput: No 2. Ear: No 3. Scapula: No 4. Spinous Process: No 5. Shoulder: No 6. Elbow: No 7. Iliac Crest: No 8. Sacrum/Coccyx: No; red but blanchable 9. Ischial Tuberosity: No 10. Trochanter: No 11. Knee: No 12. Malleolus: No 13. Heel: No; bilateral red, but blanchable 14. Toes: No 15. Assessed for device associated injury Yes 16. Nursing Nutrition Assessment Completed No See Doc Flowsheet for additional wound details. INTERVENTIONS: Patient to be turned Q2 hours as tolerated and heels and elbows now elevated on pillows. Left excoriation present under left breast. Interdry placed. * Gera Johnson MD - 03/19/2018 5:42 AM CDT HPI: Farheen Gutierres is a 68 y.o. female with history of IDDM II, HTN, HLD, hypothyroidism who is transferred from outside facility for cardiogenic shock. Ms. Gutierres is intubated/sedated on arrival and therefore history is obtained through review of records sent with her and EMS personnel. Ms. Gutierres has noticed shortness of breath with exertion starting around a month ago. Sunday of last week she had a mild upper respiratory tract infection and had difficulty producing much urine. She was unable to have a bowel movement. Constipation and decreased urine output persisted for several days until Sunday when she felt "swollen" and noted her abdomen getting distended. Her took her to the local hospital. She was found to be in atrial fibrillation with RVR and was started on diltiazem gtt. She was transferred to [facility] for higher level of care. At [facility] amiodarone was added to Diltiazem for rate control of her atrial fibrillation. Shortly thereafter she went into a junctional escape rhythm and became hypotensive. She was given Atropine x 2 and started on Dopamine gtt with minimal increase in her heart rate or blood pressure. She developed respiratory distress and was subsequently intubated. Dobutamine was added for inotropic/ blood pressure support. A TTE was obtained and revealed an LV EF of 10-15%. Her hypotension was refractory to Dopamine and Dobutamine and she was taken to the cardiac skilled laborer for left heart catheterization. She was found to have no obstructive coronary artery disease. Given her persistent hypotension an intraaortic balloon pump was inserted. She was started on phenylephrine and a lasix gtt. Her blood pressure eventually stabilized on Dopamine 20, Dobutamine 10, and Phenylephrine. After discussion with about need for higher level of care and potentially advanced heart failure therapies she was transferred to [facility] by helicopter. Physical Exam: General: Intubated/sedated. Following commands HEENT: ET tube in place, JVD difficult to assess due to body habitus Lungs: Good air movement, rales to mid-lung bilaterally Heart: Regular rate/rhythm. The first and second heart sounds are normal. There are no murmurs, gallops or rubs Abdomen: Mildly distended, non tender, no organomegaly, bowel sounds audible Neurologic: Unable to assess Extremities: Spontaneously moving extremities and to command, pulses palpable, no LE edema, feet are cool to touch bilaterally Assessment: 1. Cardiogenic shock requiring multiple vasopressors/inotropes and IABP 2. Acute, decompensated, non-ischemic heart failure with reduced left ventricular systolic function (LV EF 10-15%) 3. Acute hypoxic respiratory failure 2/2 decompensated heart failure 4. Renal dysfunction, unknown baseline, likely RYAN 2/2 cardiorenal syndrome 5. Paroxysmal atrial fibrillation with rapid ventricular response, now sinus rhythm after chemical cardioversion with amiodarone 6. Insulin dependent diabetes mellitus II 7. Hypertension 8. Dyslipidemia 9. Hypothyroidism on replacement Plan: --Discontinue phenylephrine --Wean off dopamine as tolerated, will use Levophed for pressure support --Continue Dobutamine @ 5, do not titrate --IABP at 1:1, continue Heparin gtt --Continue Lasix gtt @ 5 mg/hr given minimal UOP --Decrease FiO2 as tolerated, appears to be oxygenating well --Precedex/Fentanyl for sedation --Trend lactate to resolution of lactic acidosis --Draw blood cultures, urine culture; defer antibiotics at this time --Repeat CMP, CBC, Mg, ABG @ 4 AM --Aggressive electrolyte repletion; K>4, Mg>2 --Continue home insulin regimen --Transthoracic echocardiogram in the morning, will require contrast --Will require further investigation as to etiology of new-onset heart failure Marco Antonio Johnson MD CV Fellow #[id number] * Eva Gao RN - 03/19/2018 2:49 AM CDT Blood cultures X 2 drawn by IV therapy in this encounter H&P Notes * Shar Yousif MBBS - 03/19/2018 12:19 AM CDT Formatting of this note may be different from the original. Heart Failure H&P Note NAME:Farheen Gutierres :1950 AGE: 68 y.o. ADMISSION DATE: 03/18/2018 DAYS ADMITTED: LOS: 1 day Assessment/Plan: Active Problems: Cardiogenic shock (HCC) RYAN (acute kidney injury) (HCC) Acute Systolic Heart Failure Refractory Cardiogenic Shock Cardiorenal syndrome? Acute systolic HFrEF, EF: 10%. Unknown baseline [place] [place] acute respiratory failure and cardiogenic shock NYHA functional class None, ACC Stage D (refractory HF requiring specialized interventions). She presents with signs of hypovolemia with left ventricular failure with signs of low flow state. Admission BNP: 350 Prior to admission diuretic regimen: 5mg/hr lasix gtt (OSH), GRIP ASSEMBLER HCTZ 50mg Goal Output: 1-2L/24hr Intake/Output: Entire stay net: Unable to calculate, Last 24 hr net: Unable to calculate Goal Dry Weight: Unknown Admission Weight: 116 kg (255 lb 11.7 oz) Most recent weights (inpatient): Vitals: 03/18/18 2300 Weight: 116 kg (255 lb 11.7 oz) Plan: Guideline Based Heart Failure Therapies: HF approved beta blockers: No (Hypotension, Patient recently treated with an IV positive inotropic agent) Additions/Changes: none COLT-I/ARB: Yes Additions/Changes:none Angiotensin II Receptor Ortiz Neprilysin Inhibitor:No: Additions/Changes: none Aldosterone antagonist: No (Other (new onset HF, unknown baseline)) Additions/Changes: none Isordil/hydralazine: No (Hypotension) Additions/Changes: none Diuretics: Yes Additions/Changesnone Ivabradine:No; Not treated with maximally tolerated dose beta blockers or beta blockers contraindicated Additions/Changes: none HRM Device Therapy: No (No prior history of HF) Anticoagulation for current or history of atrial fibrillation/flutter: Yes Testing/Procedures: Echo, LHC BMP twice a day. Magnesium level daily. Keep Potassium greater than 4.0 and Magnesium greater than 2.0. 2000mg sodium dietary restriction. Fluid Restriction 1.5L Yes Strict I/O. Standing scale daily weight. Rim Turning Finisher consultation to discuss sodium restricted diet recommended. Pharmacy/Medication counseling recommended. Case Management/Social Work recommended. Co-morbidities: No consult recommended at this time On CHF service Physical Therapy consult recommended. ordered Patient Adherence and self-management: No additional plans or changes. Follow Up: appointment with a member of the HF team or PCP within 7 calendar days of discharge. - LHC on 03/18 with normal coronaries, aortic pressure 72/46, LVEDP 22, LV 71/15 , no gradient - Echo 03/18 - EF 10-15%, no regional wall motion abnormalities, systolic peak pressure 32 mmHg, LA + RA dilated, mild-mod TR and mild MR - IABP placed on 03/18, currently 1:1 - Lactic acid on admission 2.9, WBC 15, trops 0.02 and BNP 350 - CXR on admission cardiomegaly? Congestion? (official read pending) - Will obtain Echo w doppler in am - Was on Dopamine 20, dobutamine 10, phenyl 9, NS 200/hr - Will wean the patient off of dopamine first, phenyl DCed and levophed on standby if needed - Hold off on lasix gtt, and monitor urine output - Continue with heparin gtt, ongoing PTT monitoring - Trend lactic acid, draw blood cultures, hold abx Acute Hypoxic Respiratory Failure - Intubated outside hospital for acute respiratory failure - ABG on admission 7.32 / 36 / 195 / 19.2 / 99.4 > Continue mechanical ventilation > Precedex ordered for sedation > Wean off ventilator as able Acute Kidney Injury - Unknown baseline, Creatinine on admission 1.7 and previous BMP with 1.3 - Differentials cardiorenal vs post renal vs intrinsic > Urine lytes, UA > Accurate I/Os > Hold lasix for now Hypothyrodism > Continue replacement > TSH w/reflex ordered HTN > Not on therapy due to hypotension DM - GRIP ASSEMBLER levemir 18 units BID, metformin and Jaanuvia > Hold oral hypoglycemics, switch levemir to Lantus > MDCF > A1c ordered HLD - GRIP ASSEMBLER simva > Continue > Lipid profile Fluids, Electrolytes, Nutrition: Replacing as needed Prophylaxis: Heparin therapeutic, SCDs Code: Full code (default) Disposition: Admit to CCU Patient stated goal: None, unknown Patient discussed with call center representative fellow. Shar Yousif Internal Medicine / PGY-2 Pager [phone] Chief Complaint: Evaluation and recommendations re: heart failure History of Present Illness: Farheen Gutierres is a 68 y.o. female who we are asked to see for evaluation of heart failure. Patient was transferred from [facility] for refractory heart failure. Patient is currently intubated, hence the history is relied from records outside and ED/EMS personal. Patient was initially seen at OSH and was then subsequently transferred to [facility] for management of her Atrial Fibrillation with RVR. Patient was started on Diltiazem gtt by medicine service and cardiology was recommended who added amiodarone to her regimen. Patients HR went down to 30s and EKG revealed junctional rhythm. She was given atropine x 2 that increased her HR to 57 but she developed hypotension and was in respiratory distress. She was intubated and started on dopamine at 5 mcg which was increased to 10. Dobutamine was also added but patient's BP was refractory to these medications and hence she was taken to [facility]. An IABP was inserted. Patient was also initiated on Lasix and phenylephrine. was counseled about the need for higher level of care for possible LVAD placement and patient was transferred. reported that patient was not making urine and stool starting sunday that she normally would and he took her to the hospital on Sunday because her belly was getting distended. Patient also had a mild upper respiratory tract infection around the same time (Sunday or ). reported that patient was never diagnosed with CHF but she did have complaints of pedal edema ongoing for the last 5-10 years and SOB on exertion starting a month ago. Review of Systems: Review of systems not obtained due to patient factors. No past medical history on file. No past surgical history on file. No family history on file. Social History Social History Marital status: N/A Spouse name: N/A Number of children: N/A Years of education: N/A Social History Main Topics Smoking status: Not on file Smokeless tobacco: Not on file Alcohol use Not on file Drug use: Unknown Sexual activity: Not on file Other Topics Concern Not on file Social History Narrative No narrative on file Objective: Allergies: Allergies not on file Medications: Scheduled Meds: DEXTROSE 5% IN WATER IV SOLP (Cabinet Override) NOW EPINEPHRINE 1 MG/ML IJ SOLN (Cabinet Override) NOW NOREPINEPHRINE BITARTRATE 1 MG/ML IV SOLN (Cabinet Override) NOW SODIUM CHLORIDE 0.9 % IV SOLP (Cabinet Override) NOW Continuous Infusions: dexmedetomidine (PRECEDEX) 400 mcg in sodium chloride 0.9% (NS) 100 mL IV infusion DOBUTamine (DOBUTREX) 1,000 mg in sodium chloride 0.9% (NS) 250 mL IV drip ( std conc) DOPamine 400 mg/D5W 250 mL infusion (std conc)(premade) furosemide (LASIX) 500 mg/ 50 mL IV drip (max conc) heparin (porcine) 20,000 units/D5W 500 mL infusion (std conc)(premade) lactated ringers infusion norepinephrine (LEVOPHED) 4 mg in dextrose 5% (D5W) 250 mL IV drip (std conc ) phenylephrine (WANDY-SYNEPHRINE) 10 mg in sodium chloride 0.9% (NS) 250 mL IV drip (std conc) PRN and Respiratory Meds: No prescriptions prior to admission. Vital Signs: Last Filed Vital Signs: 24 Hour Range Wt Readings from Last 10 Encounters: 03/18/18 116 kg (255 lb 11.7 oz) Physical Exam: GENERAL: Intubated but following commands, Patient is in no acute distress HEENT: Atraumatic / Normocephalic, no obvious deformities, cornea/ conjunctiva clear, normal external ears and nose, no lymphadenopathy and thyroid enlargement , JVD difficult to assess given bodily habitus, ETT in place Lungs: Harsh sounds 2/2 mechanical ventilation Heart: S1 and S2 of normal intensity without any added heart sounds Abdomen: Soft, non tender, no organomegaly, bowel sounds audible Skin: No abnormal skin rash, no alopecia Neurologic: Unable to assess Extremities: No visible deformities, Spontaneously moving extremities and to command, pulses palpable Laboratory Review: CBC w/Diff No results found for: WBC, RBC, HGB, HCT, MCV, MCH, MCHC, RDW, PLTCT, MPV No results found for: NEUT, ANC, LYMA, ALC, BLANCA, AMC, EOSA, AEC, BASA, ABC Chemistry No results found for: NA, K, CL, CO2, GAP, BUN, CR, GLU No results found for: CA , PO4, ALBUMIN, TOTPROT, ALKPHOS, AST, ALT, TOTBILI, GFR, GFRAA Renal Function No results found for: NA, K, CL, CO2, GAP, BUN No results found for: CR, GLU, CA , PO4, ALBUMIN Lipid Profile INR No results found for: CHOL, TRIG, HDL, LDL, VLDL, NONHDLCHOL, CHOLHDLC No results found for: INR Chest X-Ray: Pending Tele/ECG: Old anterior infarct, sinus rhythm, IV conduction delay Echocardiogram Details: 03/18 OSH - EF 10-15%, no regional wall motion abnormalities, systolic peak pressure 32 mmHg, LA + RA dilated, mild-mod TR and mild MR Associated attestation - Alem Jones MD - 03/19/2018 7:50 AM CDT Staff Physician Attestation: I personally took the history, examined the patient, reviewed the labs, telemetry, ECGs, & radiologic studies, and formulated the treatment plan as outlined by the resident. Brandon Jones M.D Briefly, 68-year-old female transferred from outside hospital, [facility] in [place], [place]. Her is in the room, history obtained from her . Patient was in "normal" condition as recently as 72 hours ago. She had increasing abdominal fullness, distention, bloating with lack of bowel movement for 3-4 days and decreased urine output. This prompted initial evaluation at local hospital, [facility] (patient lives in [facility]). Upon arrival she was found to be in atrial fibrillation with RVR, she was promptly transferred to the [facility] in [place]. She was started on amiodarone and diltiazem, briefly on diltiazem. A planned transesophageal guided cardioversion was pursued. Unfortunately she developed bradycardia, junctional rhythm with rate in the 30s. The amiodarone was stopped, her heart rate increased to the 50s. She went on to develop clear cardiogenic shock. She started on dopamine and subsequent dobutamine, refractory shock, taken to the lab for insertion of IABP. Coronary angiogram was completed, the review of report, normal. No obstructive disease described. Her LVEDP was 22. No recent viral illness. Comorbidities include diabetes, hypertension, hyperlipidemia, no prior cardiac history. She is morbidly obese. denies recent decline in functional capacity, no heart failure described whatsoever. Exam Obese, sedated, comfortable, arouses easily to voice ETT/OGT secured Diffuse rales Distant heart tones, regular rate and rhythm, no murmur Abdomen soft, positive bowel sounds, nontender to palpation Trace lower extreme edema IABP, right groin, no hematoma Labs reviewed Lactate 2.9--> 2.0 Sodium 125 Creatinine 1.7 AST 285, a LT 365 ABG 7.30 5/37/102/20 Chest x-ray diffuse pulmonary edema ECG, sinus rhythm, anteroseptal Q waves Assessment 1. Cardiomyopathy, nonischemic, differential includes tachycardia induced ( duration of A. fib unknown), myocarditis, stress-induced i.e. Takotsubo's 2. Cardiogenic shock, currently requiring 3 pressors, IABP in place 3. Acute hypoxic respiratory failure secondary to acute cardiogenic pulmonary edema, clearly noted on chest x-ray 4. Insulin-dependent diabetes 5. PAF, new diagnosis, and sinus rhythm over past 24 hours 6. Recent bradycardia, junctional reported outside hospital, sinus rhythm since arrival here 8 hours ago 7. Morbid obesity 8. Hyponatremia, noted since arrival to outside hospital 2 days ago, 124-126 9. Lactic acidosis resolved next 10. Shock liver, LFTs improved this morning Plan 1. Anticipate intubation and balloon pump for 24-48 hours more 2. Needs aggressive diuresis, Lasix drip, will bolus 40 mg this morning and titrate drip from 5-10 3. Will consider PA catheter placement 4. Heparin drip for now given IABP and recent A. fib with conversion to sinus rhythm updated on above at 7 AM this morning Patient is critically ill, I spent 45 minutes in reviewing outside records, evaluating hemodynamics, adjusting medications, examining patient, and discussing care with in this encounter Procedure Notes * Ila Gray MD - 03/19/2018 5:02 PM CDT Associated Order(s): CARDIAC CATH REPORT [facility] CARDIAC CATHETERIZATION REPORT Page 2 FARHEEN Stovall : 1950 #: [id number] MR #/Billing ID #: [id number] / [id number] DATE: 03/19/2018 AIR TRAFFIC COORDINATOR: Ila Gray MD DICTATING PROVIDER: Kristian Caputo MD REFERRING PHYSICIAN: INTERVENTIONAL CONSUMER AFFAIRS DIRECTOR: Kristian Caputo MD PROCEDURES PERFORMED: 1. Left IJ ultrasound-guided venous access. 2. Left IJ central line placement. 3. Right IJ 8-[place]izen [place] Fast-Cath venous access. 4. Right heart catheterization. 5. Endomyocardial biopsy. INDICATION FOR PROCEDURE: Farheen Gutierres is a 68-year-old woman who presents [...] PROCEDURE: The patient was brought into the skilled laborer intubated and deeply sedated. We then noticed [...] right IJ central venous catheter for an 8-[place] Fast-Cath. Following this, we introduced a 7.5-[place]izen [place] Riviera-Mikel catheter which was serially advanced into the right atrium, right ventricle, pulmonary artery, and subsequently into the wedge position for assessment of saturations, measurement of pressures, and calculation of cardiac outputs and indices by thermodilution and Janay methods respectively. DETAILS OF RIGHT HEART CATHETERIZATION: [...] gradient 3 mmHg. 7. Cardiac output by Janay method was 4.5 L/minute, with an index of 2 L/minute per sq m. 8. Systemic vascular resistance was 1208 DSC -5 (15 Wood units). 9. Pulmonary vascular resistance 177 DSC -5 (2 Wood units). CONTRAST: None was used for the procedure. TOTAL AIR KERMA: 203 mGy. DETAILS OF THE ENDOMYOCARDIAL BIOPSY: We then introduced a 7-[place]izen [place] bioptome through the 8-[place] venous sheath under fluoroscopic guidance in the AP and SINHALA projections. We obtained a total of 3 [...] and subsequently transferred her out of the skilled laborer. Dr. Gary was scrubbed and performed fall portions of the procedure, and supervised the rest of it as well. The Riviera was left at 54 cm at the level of the hub. She will be transported to the ICU for further inotropic and diuretic management. FINAL IMPRESSION: 1. Severely reduced cardiac index with very high filling pressures. 2. Moderate pulmonary hypertension, as outlined above. 3. Continued inotropic and diuretic support per the Heart Failure Team in the ICU. Ila Gray MD PCG/MedQ /[id number] cc: in this encounter Consult Notes * Tamy Cota MD - 03/30/2018 10:15 AM CDT Associated Order(s): CONSULT REHABILITATION MEDICINE PHYSICIAN Formatting of this note may be different from the original. Physical Medicine & Rehabilitation Consult Note Date of Service: 03/30/2018 Farheen Gutierres is a 68 y.o. female. : 1950 Primary Insurance: [facility] Secondary Insurance: MEDICARE Tertiary Insurance: Financial Class: [facility] Date of Admission: 03/18/2018 Referring Physician: Philippe Aguero MD Reason for Consult: evaluate for Post-Acute Rehab/Placement Precautions: Fall, Weight bearing Precautions: Progressive mobility Active Problems Acute decompensated heart failure Takotsubos Afif w/ RVR s/p ICD Impaired ADLS Thrombocytopenia Assessment & Plan Farheen Gutierres is a 68 y.o. female admitted to [facility] on 03/18/2018 with the following issues: debility due to Acute decompensated heart failure secondary to takotsubos Impairments: pain and weakness Activity Limitations: grooming, bathing, dressing - upper, dressing - lower, toileting, transfers, ambulation and stairs Participation Restrictions: unable to return home safely Post-acute care rehabilitation needs: acute inpatient rehabilitation Goals & Barriers Family / Patient Goals: return home to previous level of function Mobility Goals: Overall goal is Modified independent Activities of Daily Living (ADLs) Goals: Overall goal is Modified independent Cognition / Communication Goals: Cognition grossly intact Barriers: Caregiver apprehension, Equipment availibilty, High burden of care and Medical complexity Facilitators: good home setup, controlled pain, patient motivation, improving strength / endurance and improving medical condition Rehabilitation Prognosis: Fair to good Tolerance for three hours of therapy a day: Good Prior to the inpatient rehabilitation admission complete the following: *Endurance: The patient will need to be clearly able to or reasonably expected to be able to endure 3 hours of constructive therapy per day. This will need to be determined prior to considering admission to acute inpatient rehabilitation. *IV medications: The patient will need to be off IV medications including dobutamine gtt to reasonably participate in an acute inpatient rehabilitation program. Recommendations: Cognition: Recommend HATCHERY MANAGER for cog screen. Bowel: Last BM documented 03/29. Recommend bowel regimen given immobility and while in the hospital. Bladder: + mc. Recommend voiding trial w/ timed voids q4h checking bladder volume index (BVI). Would perform clean intermittent catheterization (CIC) for bladder volumes >300cc. Would stop checking BVIs if 3 consecutive volumes < 125cc. Post-acute rehabilitation needs/disposition: Patient currently w/ goals in therapies and likely medical complexity appropriate for acute inpatient rehab at discharge. Mejia Barrientos MD Rehab Consult Pager: [phone] ATTESTATION I personally performed the fall portions of the E/M visit, discussed case with resident and concur with resident documentation of history, physical exam, assessment, and treatment plan unless otherwise noted. 68F with h/o DM, HTN, HLD, CHF admitted for cardiogenic shock and acute decompensated heart failure. She was previously independent and currently about min-mod assist for transfers , min A for gait, with some concerns for endurance during therapy sessions. She is likely a candidate for an acute inpatient rehabilitation stay, but would need to be off IV gtt medications and tolerating therapies prior to transfer to rehab. Primary PM&R consult team will follow up. Staff name: Tamy Cota MD Date: 03/31/2018 History of Present Illness CC: Left shoulder weakness Hospital Course: Farheen Gutierres is a 68 y.o. female with PMHx of DM on insulin, HTN/HLD, Hypothyroidism who was admitted to [facility] 03/19 for management of cardiogenic shock and acute decompensated Heart failure secondary to Takotsubos. LHC 03/18 w / normal coronaries. Echo 03/18 w/ EF 10-15%. s/p IABP 03/18-03/20. s/p endomyocardial bx 03/19 w/ no evidence of myocarditis or amyloid. CT chest 03/25 negative for pericarditis. Cardiology managing medications. Hospital course complicated by AFib w/ RVR s/p dual chamber ICD 5/2. EP following. She also experience acute respiratory failure requiring intubation (extubated 03/22). Rehab has been consulted for placement. Past Medical History Past Medical History: Diagnosis Date Essential hypertension 03/19/2018 HLD (hyperlipidemia) 03/19/2018 Hypothyroidism 03/19/2018 Morbid obesity with BMI of 45.0-49.9, adult (HCC) 03/19/2018 Nonischemic cardiomyopathy (HCC) 03/19/2018 Type II diabetes mellitus (HCC) 03/19/2018 Past Surgical History Past Surgical History: Procedure Laterality Date HX SHOULDER REPLACEMENT Left Family\\Social History Social History Social History Marital status: Spouse name: N/A Number of children: N/A Years of education: N/A Social History Main Topics Smoking status: Former Smoker Packs/day: 1.00 Years: 40.00 Types: Cigarettes Smokeless tobacco: Not on file Comment: Quit 8 years ago Alcohol use Yes Comment: Occassionally Drug use: No Sexual activity: Not on file Other Topics Concern Not on file Social History Narrative No narrative on file Family History: HTN Medications: amiodarone (CORDARONE) tablet 400 mg 400 mg Oral BID apixaban (ELIQUIS) tablet 5 mg 5 mg Oral BID bumetanide (BUMEX) tablet 2 mg 2 mg Oral BID(9-17) digoxin (LANOXIN) injection 125 mcg 125 mcg Intravenous QDAY insulin aspart U-100 (NOVOLOG FLEXPEN) injection PEN 0-14 Units 0-14 Units Subcutaneous ACHS insulin aspart U-100 (NOVOLOG FLEXPEN) injection PEN 6 Units 6 Units Subcutaneous TID w/ meals insulin glargine (LANTUS SOLOSTAR, BASAGLAR) injection PEN 18 Units 18 Units Subcutaneous BID levothyroxine (SYNTHROID) tablet 125 mcg 125 mcg Per NG tube QDAY(07) melatonin tablet 3 mg 3 mg Oral QHS nystatin (NYSTOP) topical powder Topical BID PARoxetine (PAXIL) tablet 40 mg 40 mg Per NG tube QDAY potassium chloride SR (K-DUR) tablet 40 mEq 40 mEq Oral QDAY PRN Medications: acetaminophen Q4H PRN, aluminum/magnesium hydroxide Q4H PRN, carboxymethylcellulose PRN, lidocaine PF PRN Allergies: Allergies Allergen Reactions Latex SEE COMMENTS skin irritation Pcn [Penicillins] SEE COMMENTS The patient said that when she was [...] this. Entered by Rob GARRETT on 03/23/18 Prior Level of Function Lives in [place], [place] w/ her in a house w/ 2 steps to enter. She was independent w/o use of DME prior to hospitalization. Home Environment: Home Situation: Lives Alone (03/29/2018 12:00 PM) Patient Owned Equipment: None (03/29/2018 12:00 PM) Type of Home: House (03/29/2018 12:00 PM) Entry Stairs: 1-2 Stairs (03/29/2018 12:00 PM) In-Home Stairs: Able to Live on One Level (03/29/2018 12:00 PM) Comments: The patient notes likely plan to discharge SNF. (03/29/2018 12:00 PM) Current Level Of Function: PT Gait:Gait Distance: 5 feet Gait: Assistance Level: Minimal Assist Gait: Assistive Device: Roller Walker Bed Mobility/Transfers Bed Mobility: Supine to Sit: Minimal Assist Bed Mobility: Sit to Supine: Minimal Assist, Verbal Cues, Bed Flat, Assist with B LE Comments: At edge of bed upon arrival. Transfer Type: Sit to Stand Transfer: Assistance Level: To/From, Bed, Minimal Assist Transfer: Assistive Device: Roller Walker Transfers: Type Of Assistance: Verbal Cues, For Balance, For Strength Deficit Other Transfer Type: Sit to Stand Other Transfer: Assistance Level: To/From, Bed Side Chair, Minimal Assist, of 1st person, of 2nd person (for line mangement) Other Transfer: Assistive Device: Roller Walker Comments: cues to technique to scoot to edge of bed. Sitting edge of bed, the patient oxygen saturation >95% on room air. With movement, patient desaturates to 87% and complaint of shortness of breath. Nasal cannula reapplied at 1 L and oxygen saturation>92%. RN notified. OT ADL's Where Assessed: Edge of Bed Eating Assist: Stand By Assist Eating Deficits: Setup, Increased Time to Complete Grooming Assist: Minimal Assist Grooming Deficits: Steadying, Teeth Care, Increased Time To Complete, Wash/Dry Face LE Dressing Assist: Total Assist LE Dressing Deficits: Don/Doff R Sock, Don/Doff L Sock Toileting Assist: Total Assist Toileting Deficits: (mc, flexiseal) Functional Transfer Assist: Moderate Assist Functional Transfer Deficits: Steadying, Verbal Cueing, Increased Time to Complete Comment: Patient required moderate assist for supine to sit transfer. Report of dizziness while first sitting EOB and then improved. Patient sat independently and able to feed herself. HATCHERY MANAGER COGNITIVE EVALUATION SUMMARY PRAGMATICS: BEHAVIOR: AUDITORY COMPREHENSION: ORIENTATION: AUDITORY ATTENTION/WORKING MEMORY: AUDITORY MEMORY/SUSTAINED ATTENTION: NEW LEARNING: SEQUENCING/ORGANIZATION: PROBLEM SOLVING: REASONING: MATH/MONEY SKILLS: VISUAL PERCEPTUAL: SWALLOW EVALUATION SUMMARY Summary: A clinical swallow evalaution was completed. Moderate-severe oropharyngeal dysphagia present secondary to recent prolonged intubation (03/19-). Pt exhibits s/s of aspiration with thin and nectar thick liquids. After all trials, pt exhibits coughing episode. Pt reports no past history of swallowing issues. Limited dentition and pt usually eats with dentures in place. Please see below for details/recommendations. Oral Stage Summary*: Pt's swallow assessed with ice chip, thin liquids via tsp/ straw, nectar thick via tsp/straw, and pureed solids. Withdraw, formation ,and transfer WNL. Do not anticipate presence of premature posterior bolus spillage. Pharyngeal Stage Summary*: Swallow initiation timely. Laryngeal elevation reduced. Pt exhibits no s/s of aspiration with tsp amounts or small sips of liquids, though with larger boluses and consecutive swallows , pt exhibits cough episode (w/ thin and nectar thick). Pt at high risk for silent aspiration at this time. Swallow Recommendations* NPO: Temporary Non-Oral Nutrition Plan: Continue Treatment Daily. Prognosis: Good Review of Systems A 14 point review of systems was negative except for: as noted per HPI Physical Exam BP: 139/46 (03/30 828) Temp: 36.9 C (98.5 F) (03/30 828) Pulse: 73 (03/30 828) Respirations: 18 PER MINUTE (03/30 828) SpO2: 96 % (03/30 828) O2 Delivery: Nasal Cannula (03/30 828) Body mass index is 34.16 kg/m. Gen: well appearing, NAD CV: well perfused, distal pulses intact Pulm: breathing unlabored, normal effort Abd: nondistended Extremities: No edema Skin: no obvious rashes or lesions on exposed surfaces Psych: Appropriate mood, normal affect : + mc MS: Root Right Left Shoulder Abduction C5 5 4 Elbow Flexion C5 5 5 Elbow Extension C7 5 5 Wrist Extension C6 5 5 Finger Flexion C8 5 5 Finger Abduction T1 5 5 Hip Flexion L2 5 5 Knee Flexion L5/S1 5 5 Knee Extension L3 5 5 Dorsiflexion L4 5 5 Plantarflexion S1 5 5 EHL Extension L5 5 5 Neuro: Cranial Nerves Cranial Nerves 2-12 are grossly intact DTR's No hyperreflexia Rashid Normal Upper Extremity Tone Normal Lower Extremity Tone Normal Upper Extremity Sensation Intact to light touch bilaterally Lower Extremity Sensation Intact to light touch bilaterally Clonus Negative Bilaterally Memory/Cognition/Speech Grossly intact Intake/Output Summary: Intake/Output Summary (Last 24 hours) at 03/30/18 1015 Last data filed at 03/30/18 0831 Gross per 24 hour Intake 800 ml Output 2300 ml Net -1500 ml Stool Occurrence: 1 (03/30/2018 8:31 AM) Last BM Date: 03/29/18 (03/29/2018 11: 33 PM) Oral Diet Order: Cardiac (03/28/2018 11:00 AM) Basic Metabolic Profile Lab Results Component Value Date/Time NA 137 03/30/2018 03:50 AM K 4.0 03/30/2018 03:50 AM CA 9.9 03/30/2018 03:50 AM CL 96 (L) 03/30/2018 03:50 AM CO2 34 (H) 03/30/2018 03:50 AM Lab Results Component Value Date/Time BUN 33 (H) 03/30/2018 03:50 AM CR 1.07 (H) 03/30/2018 03:50 AM GLU 122 (H) 03/30/2018 03:50 AM CBC w/Diff Lab Results Component Value Date/Time WBC 10.9 03/30/2018 03:49 AM RBC 4.32 03/30/2018 03:49 AM HGB 12.0 03/30/2018 03:49 AM HCT 36.4 03/30/2018 03:49 AM MCV 84.2 03/30/2018 03:49 AM MCH 27.8 03/30/2018 03:49 AM RDW 16.2 (H) 03/30/2018 03:49 AM PLTCT 143 (L) 03/30/2018 03:49 AM MPV 8.7 03/30/2018 03:49 AM Lab Results Component Value Date/Time NEUT 91 (H) 03/19/2018 12:15 AM ANC 14.50 (H) 03/19/2018 12:15 AM LYMA 3 (L) 03/19/2018 12:15 AM ALC 0.50 (L) 03/19/2018 12:15 AM BLANCA 5 03/19/2018 12:15 AM AMC 0.80 03/19/2018 12:15 AM EOSA 0 03/19/2018 12:15 AM AEC 0.00 03/19/2018 12:15 AM BASA 1 03/19/2018 12:15 AM ABC 0.20 03/19/2018 12:15 AM Radiology: Cardia PET scan: IMPRESSION 1. Mild homogeneous increased FDG uptake within the left ventricular myocardium, greatest at the inferior wall. Findings are compatible with acute mild myocarditis. 2. Mild cardiomegaly. Finalized on 03/26/2018 12:15 PM. * Clare Mccarthy APRN-CTE TEACHER - 03/25/2018 4:47 PM CDT Associated Order(s): CONSULT CARDIOLOGY PHYSICIAN Formatting of this note may be different from the original. Admission Date: 03/18/2018 Date of Consultation: 03/25/2018 LOS: 7 days Requesting Physician: Alem Jones MD Consulting Physician: Dr. Bobby Durán Code Status: Full Code Reason for Consultation Opinion and recommendations regarding "Complicated history. Recent A-fib that for which she was given diltiazem + amiodarone at OSH and she converted and went into a junctional rhythm and cardiac arrest. IABP placed and trasnferred here, found to in shock. Went into A-fib here again with rate into 90s-130s. Currently on amiodarone, metoprolol and eliquis. We are changing the amiodarone and metoprolol to digoxin today and scheduling for YESI with cardioversion tomorrow. Please evaluate her and assist with rhythm management" Assessment: Newly discovered AF with RVR - normal LA size based on echo - no known history per the patient - [id number] Score 5, on Eliquis 5 mg bid Bradycardia / atrial standstill with junction/ventricular escape - rates in the 30's - while on amio, dilt and metoprolol - improved on digoxin alone for rate control Severe NICM - EF 15-20% - no hx per patient/ Acute systolic CHF - diuresis on IV bumex Hypothyroidism - TSH 6.45 with normal Free T4 on admission IDDM-II/HTN/HLD Recommendations: Agree with YESI/DCCV tomorrow. Would resume amio loading post DCCV. Patient would benefit from permanent pacing for tachybrady syndrome and given her current severe LV dysfunction would place dual chamber ICD once euvolemic and stable to undergo procedure. Anticoagulation with Eliquis is fine, but please no heparin or Lovenox x 72 hours post procedure. Will tentatively plan on ICD placement Sunday. Will follow along with you and make further recommendations post DCCV and diuresis. HIPOLITO Rodriguez (pgr [phone]) Heart Rhythm Management (pgr [phone]) Medicare attestation History of Present Illness: Farheen Gutierres is a 68 y.o. female patient with a history of IDDM-II, HTN, HLD that developed increasing dyspnea, edema and weight gain 72 hours prior to being hospitalized at OSH 03/19/18. She was found to be in AF with RVR and started on IV amio, IV dilitazem and po metoprolol. She became severely bradycardic (appears to be atrial standstill with junctional / ventricular escape) with rates in the 30's prompting transfer to [facility]. She was found to have severe LV dysfunction (15%-20%) and required IABP upon arrival for pressure support. She has been undergoing diuresis and is on dobutamine gtt. She has reverted back to AF with RVR (rates 110's to 120's). She is scheduled to undergo DCCV tomorrow am. We have been asked to help manage arrhythmia and consider ICD placement. Past Medical History: Past Medical History: Diagnosis Date Essential hypertension 03/19/2018 HLD (hyperlipidemia) 03/19/2018 Hypothyroidism 03/19/2018 Morbid obesity with BMI of 45.0-49.9, adult (HCC) 03/19/2018 Nonischemic cardiomyopathy (HCC) 03/19/2018 Type II diabetes mellitus (HCC) 03/19/2018 Social History: Social History Social History Marital status: Spouse name: N/A Number of children: N/A Years of education: N/A Occupational History Not on file. Social History Main Topics Smoking status: Former Smoker Packs/day: 1.00 Years: 40.00 Types: Cigarettes Smokeless tobacco: Not on file Comment: Quit 8 years ago Alcohol use Yes Comment: Occassionally Drug use: No Sexual activity: Not on file Other Topics Concern Not on file Social History Narrative No narrative on file Surgical History: Past Surgical History: Procedure Laterality Date HX SHOULDER REPLACEMENT Left Family History: No family history on file. Medications: acetaZOLAMIDE (DIAMOX) injection 500 mg 500 mg Intravenous Q8H apixaban (ELIQUIS) tablet 5 mg 5 mg Oral BID digoxin (LANOXIN) injection 250 mcg 250 mcg Intravenous Q6H [START ON 03/26/2018] digoxin (LANOXIN) injection 250 mcg 250 mcg Intravenous QDAY insulin aspart U-100 (NOVOLOG FLEXPEN) injection PEN 0-28 Units 0-28 Units Subcutaneous 5 X Day insulin aspart U-100 (NOVOLOG FLEXPEN) injection PEN 23 Units 23 Units Subcutaneous TID w/ meals insulin glargine (LANTUS SOLOSTAR, BASAGLAR) injection PEN 35 Units 35 Units Subcutaneous BID levothyroxine (SYNTHROID) tablet 125 mcg 125 mcg Per NG tube QDAY(07) nystatin (NYSTOP) topical powder Topical BID pantoprazole (PROTONIX) injection 40 mg 40 mg Intravenous QDAY PARoxetine (PAXIL) tablet 40 mg 40 mg Per NG tube QDAY potassium chloride oral solution 40 mEq 40 mEq Per NG tube QDAY acetaminophen Q4H PRN, aluminum/magnesium hydroxide Q4H PRN, carboxymethylcellulose PRN, pancrelipase 20,000 Units/ sodium bicarbonate 650 mg (#) PRN (Combination Window Installer from Rx) Allergies: Allergies Allergen Reactions Latex SEE COMMENTS skin irritation Pcn [Penicillins] SEE COMMENTS The patient said that when she was [...] this. Entered by Rob GARRETT on 03/23/18 Review of Systems: Very limited verbal responses to questions. Husbands answers most questions and reports increasing edema with bipedal edema for approximately 2 days prior to hospitalization. Denies recent fever, chills, N/V/D, chest pain or lightheadedness/syncope. Vital Signs: Most Recent Vital Signs: 24 Hour Range BP: 106/51 (03/25 1600) Temp: 36.7 C (98 F) (03/25 1600) Pulse: 107 (03/25 1600) Respirations: 15 PER MINUTE (03/25 1600) SpO2: 93 % (03/25 1600) O2 Delivery: Nasal Cannula (03/25 1600) SpO2 Pulse: 117 (03/25 1600) BP: (101-140)/(48-101) Temp: [36.4 C (97.6 F)-36.7 C (98 F)] Pulse: [94-139] Respirations: [13 PER MINUTE-25 PER MINUTE] SpO2: [93 %-99 %] O2 Delivery: Nasal Cannula Vitals: 03/23/18 0600 03/24/18 0600 03/25/18 0500 Weight: 111.1 kg (244 lb 14.9 oz) 105.7 kg (233 lb 0.4 oz) 103.1 kg (227 lb 4.7 oz) Intake/Output Summary (Last 24 hours) at 03/25/18 1647 Last data filed at 03/25/18 1600 Gross per 24 hour Intake 2119.91 ml Output 7805 ml Net -5685.09 ml Physical Exam: GEN: ill appearing 68 y.o. female who appears older than stated age and is no acute distress HEAD: normocephalic EYES: sclera non icteric MOUTH: PMMM LUNGS: coarse anteriorly that improves with coughing HEART: irregularly irregular, tachy without murmur or gallop appreciated EXTR: 1+ bipedal edema without pitting SKIN: warm and dry NEUR: Alert and confused to fine details of hospitalization PSYCH: calm and cooperative Labs: Hematology: Lab Results Component Value Date HGB 11.7 03/25/2018 HCT 36.8 03/25/2018 PLTCT 81 03/25/2018 WBC 9.8 03/25/2018 NEUT 91 03/19/2018 ANC 14.50 03/19/2018 ALC 0.50 03/19/2018 BLANCA 5 03/19/2018 AMC 0.80 03/19/2018 ABC 0.20 03/19/2018 MCV 86.7 03/25/2018 MCHC 31.8 03/25/2018 MPV 9.3 03/25/2018 RDW 17.3 03/25/2018 , Coagulation: Lab Results Component Value Date PTT 101.5 03/23/2018 INR 1.9 03/19/2018 , General Chemistry: Lab Results Component Value Date NA 139 03/25/2018 K 3.7 03/25/2018 CL 90 03/25/2018 GAP 5 03/25/2018 BUN 39 03/25/2018 CR 0.90 03/25/2018 GLU 73 03/25/2018 CA 9.8 03/25/2018 ALBUMIN 3.5 03/25/2018 LACTIC 1.1 03/20/2018 MG 2.3 03/25/2018 TOTBILI 0.5 03/25/2018 and Endocrine: Lab Results Component Value Date TSH 6.450 03/19/2018 EC03/21/18 ECG shows AF with rates in the 140's 03/19/18 ECG's show NSR @ 69 bpm followed by accelerated junctional rhythm in the 80's Telemetry: AF with rates in the 100's to 120's HIPOLITO Rodriguez [phone] Associated attestation - Bobby Durán MD - 03/26/2018 7:18 AM CDT ATTESTATION I personally interviewed and examined the patient. I have reviewed the history , physical, impression and plan outlined by the Nurse Practitioner. The patient presents with acute congestive heart failure to outside hospital along with new diagnosis of atrial fibrillation with rapid ventricular response. In the setting of treatment with amiodarone and diltiazem, she had significant bradycardia and hemodynamic compromise. On examination there is patient in the bed consistently coughing, lungs are congested and JVP is elevated. Leg edema is decreased. My impression 1. Congestive heart failure with new onset nonischemic cardiomyopathy 2. New onset atrial fibrillation 3. Severe symptomatic bradycardia precluding treatment of atrial fibrillation 4. Long-term risk of sudden cardiac arrest My plan 1. Agree with plans for YESI guided cardioversion 2. She will require permanent pacing most likely to enable atrial fibrillation management with antiarrhythmic drug therapy. Since she is also at risk for sudden cardiac arrest, most likely she will benefit from dual-chamber ICD. Her QRS is narrow and therefore VINE PRUNER-D is not indicated but possible future upgrade if atrial fibrillation is difficult to control. I believe her atrial fibrillation will be able to be managed with rhythm control at this point because of preserved left atrial size as well as new onset of atrial fibrillation. * Mejia Rivas MD - 03/25/2018 11:19 AM CDT Formatting of this note may be different from the original. Infectious Diseases Initial Consult Today's Date: 03/25/2018 Admission Date: 03/18/2018 Reason for this consultation: Strep mitis bacteremia and Klebsiella UTI, pencillin allergic, assist with Abx managment Co-Management w/Signed Orders Assessment: Sepsis: Streptococcus mitis/oralis bacteremia and Klebsiella aerogenes UTI Apart from identification of a viridans streptococcus from blood, there is no evidence for endocarditis. Parainfluenza infection is rarely associated with cardiomyopathy and pericarditis Clin Microbiol Rev v.16(2); 2002 [id number] J Clin Microbiol. 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 She did not have difficulty breathing, swelling of the tongue or neck or rash. Her physician made a return house call. She does not remember if she received any treatment. She was not hospitalized for this. Recommendations: Remains on dobutamine. Remains in atrial fibrillation though on amiodarone. Rate control has been difficult. She is now off antibiotics. If no vegetations on YESI (I understand that this is planned for this week), do not repeat blood cultures. If there is a concern about vegetations, repeat blood cultures (ideally 5-7 days from 03/24 when the last dose of cefepime was given). Mejia Rivas MD Interval History Farheen Gutierres is a 68 y.o. afeb WBC 9.8 Thrombocytopenia stabilizing HIT ab neg Creat now normal, 0.90 Remains on bumetanide drip On dobutamine Her back hurts (moderate) and is worse when she moves. It is better at rest. ROS Gen maybe a little better No fever Diarrhea No rash Breathing is so-so Attending Summary based on initial ID consultation note of 03/23/18: The patient is a 68-year-old woman who was admitted to cardiology on 03/18/18 in transfer for from [facility] in [place], [place] for cardiogenic shock which occurred after an attempt was made at cardioversion for newly diagnosed atrial fibrillation. ID (Dr. Rivas) was consulted on 03/23/18 for treatment of Streptococcus mitis/oralis bacteremia and Klebsiella UTI in the setting of a history of penicillin allergy. The patient has morbid obesity and DM. There was no prior cardiac history. 3 days prior to [facility] admission on 03/18/18 she noted abdominal symptoms of fullness, distention, bloating and constipation for 3-4 days prior to admission. Also, she noted a decrease in urine output. She sought evaluation at her local hospital in [place], [place]. There she was noted to be in atrial fibrillation with RVR and was therefore promptly transferred to [facility] in [place], [place]. According to her while at [facility] the patient deteriorated abruptly with a blood pressure of 58 and bradycardia. She was intubated and an IABP placed with improvement in her status. Shortly thereafter she was transferred to . I spoke with her attending, Dr. Jones on 03/23/18. At the time of ID consultation the patient had made substantial recovery and was no longer in cardiogenic shock. In particular, she was no longer on pressors or inotropes and the IABP had been removed and she had just been extubated the day before on 03/22. The etiology of the cardiogenic shock has so far defied investigation, including cardiac biopsy (03/19/18 - myocardium with moderate fibrosis, but not myocarditis) and a normal coronary angiogram (done at [facility]). At the time of ID consultation on 03/23/18, the most recent echocardiogram was on 03/21/18. This was a technically difficult study but showed severely reduced LV systolic function with an estimated EF of 20% and severe, global hypokinesis. The right ventricle was moderately enlarged and also showed decreased systolic function. There was trace mitral valve regurgitation and [id number] tricuspid valve regurgitation. Neither the AV nor PV were well seen. She remained in atrial fibrillation with RVR despite amiodarone and IV digoxin. She was diuresing well on a bumetanide drip and remained on heparin and amiodarone drips. ID consultation was prompted by the return of two sets of blood cultures, collected almost simultaneously early on 03/19/18 and prior to antibiotic therapy , for Streptococcus mitis/oralis. At the time of ID consultation, there had been no additional blood cultures collected. Also, a urine culture from (also collected prior to antibiotic administration) grew K aerogenes (>100, 00K). It is likely that the collection of cultures was prompted by the leukocytosis of 15.9 at the time of admission, but Dr Jones's impression was that the patient did not have an infection. There was no fever. The patient said that when she was less than 12 years old, she was given a penicillin shot which caused her to be sleepy. She did not have difficulty breathing, swelling of the tongue or neck or rash. Her physician made a return house call. She does not remember if she received any treatment. She was not hospitalized for this. During the hospitalization the platelet count declined steadily from 149K on admission to 72K on 03/23/18; Over the same period, the hemoglobin declined from 13.6 to 11.5. She has had renal insufficiency, with an abnormal creatinine at admission (1.71) , which peaked at 1.88 on 03/21 and which had declined to 1.28 on 03/23. It appears that she also had an element of shock liver which had resolved by . An RVP on 03/19/18 was positive for parainfluenzae 3. Her said that he brought back a cold from a trip to [place] and on about 03/13 the patient told him she was "getting [his] crud", meaning she developed cold symptoms. It was a few days later when she began to develop abdominal bloating and diminished urine output. Antimicrobial Start date End date Vancomycin (IV) 03/19 03/23 cefepime 03/19 03/24 Estimated Creatinine Clearance: 74.5 mL/min (based on SCr of 0.9 mg/dL). Medications Scheduled Meds: acetaZOLAMIDE (DIAMOX) injection 500 mg 500 mg Intravenous Q8H apixaban (ELIQUIS) tablet 5 mg 5 mg Oral BID digoxin (LANOXIN) injection 250 mcg 250 mcg Intravenous Q6H [START ON 03/26/2018] digoxin (LANOXIN) injection 250 mcg 250 mcg Intravenous QDAY insulin aspart U-100 (NOVOLOG FLEXPEN) injection PEN 0-14 Units 0-14 Units Subcutaneous 5 X Day insulin aspart U-100 (NOVOLOG FLEXPEN) injection PEN 23 Units 23 Units Subcutaneous TID w/ meals insulin glargine (LANTUS SOLOSTAR, BASAGLAR) injection PEN 35 Units 35 Units Subcutaneous BID levothyroxine (SYNTHROID) tablet 125 mcg 125 mcg Per NG tube QDAY(07) nystatin (NYSTOP) topical powder Topical BID pantoprazole (PROTONIX) injection 40 mg 40 mg Intravenous QDAY PARoxetine (PAXIL) tablet 40 mg 40 mg Per NG tube QDAY potassium chloride oral solution 40 mEq 40 mEq Per NG tube QDAY Continuous Infusions: bumetanide (BUMEX) 24 mg in empty IV bag 96 mL IV drip (std conc) 0.5 mg/hr (03/25/18 08) DOBUTamine (DOBUTREX) 1,000 mg in sodium chloride 0.9% (NS) 250 mL IV drip ( std conc) 2 mcg/kg/min (03/25/18799) PRN and Respiratory Meds:acetaminophen Q4H PRN, aluminum/magnesium hydroxide Q4H PRN, carboxymethylcellulose PRN, pancrelipase 20,000 Units/ sodium bicarbonate 650 mg(#) PRN (Combination Window Installer from Rx) Physical Examination Vital Signs: Last Vital Signs: 24 Hour Range BP: 116/78 (03/25 1000) Temp: 36.6 C (97.8 F) (03/25 0800) Pulse: 139 (03/25 1000) Respirations: 15 PER MINUTE (03/25 1000) SpO2: 96 % (03/25 1000) O2 Delivery: Nasal Cannula (03/25 800) SpO2 Pulse: 138 (03/25 1000) BP: (101-140)/(48-101) ABP: (128-136)/(64-72) Temp: [36.4 C (97.6 F)-36.7 C (98.1 F)] Pulse: [94-139] Respirations: [13 PER MINUTE-28 PER MINUTE] SpO2: [89 %-99 %] O2 Delivery: Nasal Cannula Gen nad, but looks weak Skin no drug rash Eyes no conj hemorrhages; no icterus Neck L IJ Chest rhonchi Cor irreg irreg ? Gallop? No murmur or rub abd obese, soft, just a little tender to light palpation extrem 2+ pretibial edema Lines: L IJ 3LC, 03/19/18 Lab Review Hematology Recent Labs 03/22/18 1610 03/22/18 2305 03/23/18 0402 03/23/18 0505 03/24/18 0400 03/25/18 0255 WBC -- -- 6.7 -- 8.3 9.8 HGB -- -- 11.5* -- 11.8* 11.7* HCT -- -- 34.4* -- 35.2* 36.8 PLTCT -- -- 72* -- 71* 81* PTT 31.9 78.4* -- 101.5* -- -- Chemistry Recent Labs 03/24/18 0400 03/24/18 1545 03/24/18 2111 03/25/18 0255 NA 136* 137 135* 139 K 4.0 3.9 3.8 3.7 CL 92* 90* 90* 90* CO2 39* 42* 40* 44* BUN 42* 40* 40* 39* CR 0.92 0.93 0.98 0.90 GFR >60 >60 57* >60 GLU 189* 210* 246* 73 CA 9.0 9.3 9.4 9.8 ALBUMIN 3.3* 3.4* -- 3.5 ALKPHOS 44 44 -- 45 AST 22 19 -- 19 ALT 60* 53 -- 48 TOTBILI 0.5 0.5 -- 0.5 Microbiology, Radiology and other Diagnostics Review Microbiology data reviewed. Pertinent radiology images viewed. Impression: Mejia Rivas MD Pager [phone] Infectious Diseases Faculty Complexity of medical decision-making is high because of: ? RISK o immunosuppression placing the patient at increased risk of infection or difficulty in clearing infection (diabetes) o antimicrobial complications, risk of and need for assessment/monitoring for ( disturbances of blood counts, renal or liver function; rash; diarrhea (non-C difficile related or C difficile-related); ; o central line complications, risk of and need for assessment for (line-related infection, DVT or other) o seriousness of underlying infection/condition o complexity of patients underlying illness o life-threatening infection/condition o Other ? AMOUNT 7/OR COMPLEXITY OF DATA o Review/order lab tests (1) o Review/order radiology (1) o Review and summarizing old records/hx from someone other than patient/ discussion with another healthcare provider (2) Patient's nurse re diarrhea and heart failure treatment o Mejia Woodward MD - 03/23/2018 1:02 PM CDT Associated Order(s): CONSULT INFECTIOUS DISEASES PHYSICIAN Formatting of this note may be different from the original. Infectious Diseases Initial Consult Today's Date: 03/23/2018 Admission Date: 03/18/2018 Reason for this consultation: Strep mitis bacteremia and Klebsiella UTI, pencillin allergic, assist with Abx managment Co-Management w/Signed Orders Assessment: Sepsis: Streptococcus mitis/oralis bacteremia and Klebsiella aerogenes UTI Apart from identification of a viridans streptococcus from blood, there is no evidence for endocarditis. Parainfluenza infection is rarely associated with cardiomyopathy and pericarditis Clin Microbiol Rev v.16(2); 2002 [id number] J Clin Microbiol. 2010;49(5):2072-3 RYAN (cardiorenal syndrome) Morbid obesity DM Cardiovascular conditions: Cardiogenic shock IABP dopamine/dobutamine Atrial fibrillation, new diagnosis HTN Normal coronary angiogram Adverse drug reactions: Penicillins: The patient said that when she was less than 12 years old, she was given a penicillin shot which caused her to be sleepy. She did not have difficulty breathing, swelling of the tongue or neck or rash. Her physician made a return house call. She does not remember if she received any treatment. She was not hospitalized for this. Recommendations: With regard to the bacteremia with Strep mitis/oralis (03/19/18): Though the gram stain from the blood culture bottle was read as "GPC resembling staph", the culture did not grow staphylococci. I do not think the patient had a staph bacteremia. Strep mitis/oralis is a viridans streptococcus and is one of the pathogens of endocarditis. However, I do not think the patient has endocarditis based on the history (there were no symptoms of infection), her examination (no stigmata of endocarditis) and echocardiograms which showed global hypokinesis and structurally normal MV and TV (albeit with insufficient views of AV and PV). An attempt at cardioversion is anticipated for next week at which time a YESI will be done. This should provide good visualization of the AV (and PV). Given that the blood cultures were collected within several hours after placement of the IABP, I doubt that there was a device infection. With regard to the recovery of K aerogenes from the urine culture on 03/19/18: The absence of pyuria (no WBC) despite "2+ leukocytes" suggests that the urine culture most likely represented asymptomatic bacteriuria. Infection cannot be excluded however. The reaction to penicillin the patient had as a child (sleepiness) was not an allergic reaction. It would be safe to administer penicillins in the future. Parainfluenza infection has rarely been reported to be associated with cardiomyopathy. There is a temporal association here, but I do not think there is enough evidence to draw a firm relationship between the two events. ID suggestions: Stop vancomycin, especially because of RYAN (I have written this order) Conclude a short course of antibiotic therapy for a possible3 UTI with cefepime. 5 days is reasonable Start: 03/19 Target stop: 03/24 If YESI anticipated for next week shows no valvular abnormalities, I would not repeat blood cultures. If there were to be valvular abnormalities consider reported a blood culture 5-7 days after stopping cefepime to be certain there is not a sustained/recurrent Strep mitis/oralis bacteremia. 11 min 156 24 + 11 +39 + 25 +30 History of Present Illness Farheen Gutierres is a 68 y.o. The patient is a 68-year-old woman who was admitted to cardiology on 03/18/18 in transfer for from [facility] in [place], [place] for cardiogenic shock which occurred after an attempt was made at cardioversion for newly diagnosed atrial fibrillation. ID (Dr. Rivas) was consulted on 03/23/18 for treatment of Streptococcus mitis/oralis bacteremia and Klebsiella UTI in the setting of a history of penicillin allergy. The patient has morbid obesity and DM. There was no prior cardiac history. 3 days prior to this admission on 03/18/18 she noted abdominal symptoms of fullness, distention, bloating and constipation for 3-4 days prior to admission. Also, she noted a decrease in urine output. She sought evaluation at her local hospital in [place], [place]. There she was noted to be in atrial fibrillation with RVR and was therefore promptly transferred to [facility] in [place], [place]. According to her while at [facility] the patient deteriorated abruptly with a blood pressure of 58 and bradycardia. She was intubated and an IABP placed with improvement in her status. Shortly thereafter she was transferred to . I spoke with her attending, Dr. Jones. At the time of ID consultation the patient had made substantial recovery and was no longer in cardiogenic shock. In particular, she was no longer on pressors or inotropes and the IABP had been removed and she had just been extubated the day before on 03/22. The etiology of the cardiogenic shock has so far defied investigation, including cardiac biopsy (03/19/18 - myocardium with moderate fibrosis, but not myocarditis) and a normal coronary angiogram (done at [facility]). At the time of ID consultation on 03/23/18, the most recent echocardiogram was on 03/21/18. This was a technically difficult study but showed severely reduced LV systolic function with an estimated EF of 20% and severe, global hypokinesis. The right ventricle was moderately enlarged and also showed decreased systolic function. There was trace mitral valve regurgitation and [id number] tricuspid valve regurgitation. Neither the AV nor PV were well seen. She remained in atrial fibrillation with RVR despite amiodarone and IV digoxin. She was diuresing well on a bumetanide drip and remained on heparin and amiodarone drips. ID consultation was prompted by the return of two sets of blood cultures, collected almost simultaneously early on 03/19/18 and prior to antibiotic therapy , for Streptococcus mitis/oralis. At the time of ID consultation, there had been no additional blood cultures collected. Also, a urine culture from (also collected prior to antibiotic administration) grew K aerogenes (>100, 00K). It is likely that the collection of cultures was prompted by the leukocytosis of 15.9 at the time of admission, but Dr Jones's impression was that the patient did not have an infection. There was no fever. The patient said that when she was less than 12 years old, she was given a penicillin shot which caused her to be sleepy. She did not have difficulty breathing, swelling of the tongue or neck or rash. Her physician made a return house call. She does not remember if she received any treatment. She was not hospitalized for this. During the hospitalization the platelet count declined steadily from 149K on admission to 72K on 03/23/18; Over the same period, the hemoglobin declined from 13.6 to 11.5. She has had renal insufficiency, with an abnormal creatinine at admission (1.71) , which peaked at 1.88 on 03/21 and which had declined to 1.28 on 03/23. It appears that she also had an element of shock liver which had resolved by . An RVP on 03/19/18 was positive for parainfluenzae 3. Her said that he brought back a cold from a trip to [place] and on about 03/13 the patient told him she was "getting [his] crud", meaning she developed cold symptoms. It was a few days later when she began to develop abdominal bloating and diminished urine output. Antimicrobial Start date End date Vancomycin (IV) 03/19 03/23 cefepime 03/19 active Estimated Creatinine Clearance: 54.6 mL/min (A) (based on SCr of 1.28 mg/dL (H)) . Past Medical History Past Medical History: Diagnosis Date Essential hypertension 03/19/2018 HLD (hyperlipidemia) 03/19/2018 Hypothyroidism 03/19/2018 Morbid obesity with BMI of 45.0-49.9, adult (HCC) 03/19/2018 Nonischemic cardiomyopathy (HCC) 03/19/2018 Type II diabetes mellitus (HCC) 03/19/2018 Past Surgical History Past Surgical History: Procedure Laterality Date HX SHOULDER REPLACEMENT Left Social History for 30 years. She met her when they were both serving in the [employer]. She's been to [place], [facility] and many other places. Social History Substance Use Topics Smoking status: Former Smoker Packs/day: 1.00 Years: 40.00 Types: Cigarettes Smokeless tobacco: Not on file Comment: Quit 8 years ago Alcohol use Yes Comment: Occassionally Family History No family history on file. Allergies Allergies Allergen Reactions Latex SEE COMMENTS skin irritation Pcn [Penicillins] UNKNOWN Review of Systems A comprehensive 14-point review of systems was negative with exception of as above in HPI: abdominal bloating, constipation Decreased urine output Now with diarrhea No fever "crud" (URI) the week prior to admission Coughing now No fever Medications Scheduled Meds: apixaban (ELIQUIS) tablet 5 mg 5 mg Oral BID cefepime (MAXIPIME) 2 g/100 ml iso-osmotic IVPB 2 g Intravenous Q24H* levothyroxine (SYNTHROID) tablet 125 mcg 125 mcg Per NG tube QDAY() metoprolol (LOPRESSOR) injection 2.5 mg 2.5 mg Intravenous Q6H* nystatin (NYSTOP) topical powder Topical BID pantoprazole (PROTONIX) injection 40 mg 40 mg Intravenous BID(-) PARoxetine (PAXIL) tablet 40 mg 40 mg Per NG tube QDAY potassium chloride oral solution 40 mEq 40 mEq Per NG tube QDAY vancomycin (VANCOCIN) 1,500 mg in dextrose 5% (D5W) IVPB 1,500 mg Intravenous Q24H* And vancomycin, pharmacy to manage 1 each Service Per Pharmacy Continuous Infusions: amiodarone (CORDARONE) 360 mg in dextrose, iso-osm 200 mL infusion 0.5 mg/ min (03/23/18 1200) bumetanide (BUMEX) 24 mg in empty IV bag 96 mL IV drip (std conc) 0.5 mg/hr (03/23/18 1230) DOBUTamine (DOBUTREX) 1,000 mg in sodium chloride 0.9% (NS) 250 mL IV drip ( std conc) 3 mcg/kg/min (03/23/18 1200) insulin regular (NOVOLIN R) 100 Units in sodium chloride 0.9% (NS) 100 mL IV drip (std conc) 5 Units/hr (03/23/18 1248) PRN and Respiratory Meds:acetaminophen Q4H PRN, aluminum/magnesium hydroxide Q4H PRN, carboxymethylcellulose PRN, pancrelipase 20,000 Units/ sodium bicarbonate 650 mg(#) PRN (Combination Window Installer from Rx) Physical Examination Vital Signs: Last Vital Signs: 24 Hour Range Temp: 36.7 C (98 F) (03/23 1200) Pulse: 135 (03/23 1200) Respirations: 22 PER MINUTE (03/23 1200) SpO2: 95 % (03/23 1200) O2 Delivery: Nasal Cannula (03/23 1200) SpO2 Pulse: 114 (03/23 1200) ABP: (103-142)/(51-71) Temp: [36.4 C (97.6 F)-37.1 C (98.7 F)] Pulse: [102-157] Respirations: [8 PER MINUTE-27 PER MINUTE] SpO2: [94 %-100 %] O2 Delivery: Nasal Cannula Gen very obese, weak, nad Mental status: normal Skin no rash; Eyes eomi per normal scler/conj HENT nor oral lesions LN none palpable Neck L IJ Chest anterior auscultation: few rales over R chest Cor irreg irreg distant heart tones w/o murmur rub or gallop abd very obese, soft, a bit tender RUQ without rebound; no hsm extrem SCDs in place; no stigmata of endocarditis, though fingernails and toenails are painted Lines: L IJ 3LC, 03/19/18 L radial arterial line, 03/18/18 Lab Review Hematology Recent Labs 03/21/18 0410 03/22/18 0500 03/22/18 1610 03/22/18 2305 03/23/18 0402 03/23/18 0505 WBC 11.8* -- 11.3* -- -- -- 6.7 -- HGB 11.5* -- 11.4* -- -- -- 11.5* -- HCT 35.6* -- 34.8* -- -- -- 34.4* -- PLTCT 94* -- 90* -- -- -- 72* -- PTT -- < > -- < > 31.9 78.4* -- 101.5* < >=values in this interval not displayed. Chemistry Recent Labs 03/22/18 0500 03/22/18 1054 03/22/18 1610 03/23/18 0402 NA 128* 130* 131* 131* K 4.3 4.6 4.6 4.1 CL 94* 94* 95* 94* CO2 26 27 28 29 BUN 51* 51* 55* 50* CR 1.49* 1.54* 1.50* 1.28* GFR 35* 34* 35* 42* GLU 155* 131* 155* 244* CA 8.7 8.6 8.7 8.5 ALBUMIN 3.2* -- 3.4* 3.3* ALKPHOS 38 -- 42 43 AST 37 -- 30 25 ALT 111* -- 102* 77* TOTBILI 0.4 -- 0.4 0.4 Microbiology, Radiology and other Diagnostics Review Microbiology data reviewed. Pertinent radiology images viewed. Impression: Mejia Rivas MD Pager [phone] Infectious Diseases Faculty Complexity of medical decision-making is high because of: ? RISK o immunosuppression placing the patient at increased risk of infection or difficulty in clearing infection (diabetes) o antimicrobial complications, risk of and need for assessment/monitoring for ( disturbances of blood counts, renal or liver function; rash; diarrhea (non-C difficile related or C difficile-related); neuropathy/WEIGHER BULKER effects; o central line complications, risk of and need for assessment for (line-related infection, DVT or other) o seriousness of underlying infection/condition o complexity of patients underlying illness o life-threatening infection/condition o Other ? DIAGNOSES OR MANAGEMENT OPTIONS o new problem to examiner with additional work-up (4) ? AMOUNT 7/OR COMPLEXITY OF DATA o Review/order lab tests (1) o Review/order radiology (1) o Review/order other diagnostic test (1) o Discussion of results with performing physician (1) o Review and summarizing old records/hx from someone other than patient/ discussion with another healthcare provider (2) Patient's o review/interpretation of images/stains/EKG/histopathology (2) CXR 03/23/17 with decreasing pulm vasc congestion. L TSA. ATTESTATION I have seen, personally fully evaluated, and discussed patient with Dr Jones and the patient's . I agree with the objective findings and agree with the plan of care as documented by the resident with the exceptions noted. The patient is critically ill with cardiogenic shock, cardiomyopathy, RYAN, respiratory failure, morbid obesity, DM, bactermeia, UTI, Strep mitis/oralis, Klebsiella. I spent 90 minutes (excluding time spent performing or supervising any procedures) providing and personally directing critical care services including antimicrobial therapy management. Staff name: Mejia Rivas MD Date: 03/23/2018 * Breanna Puckett, RD - 03/19/2018 1:11 PM CDT Associated Order(s): CONSULT DIETITIAN CLINICAL NUTRITION Clinical Nutrition Assessment Summary Nutrition Assessment of Patient: BMI Categories Adult: Obesity Class III: 40 and over (BMI 41.16) Malnutrition Assessment: Does not meet criteria (will further assess pending subjective info) Current Oral Intake: NPO Estimated Calorie Needs: 4512-5719 (11-14 kcals/kg wt 115.7kg) Estimated Protein Needs: 118g (2g/kg ideal wt 59kg) Oral Diet Order: NPO Pt is a 68 y.o. female with a PMH that includes DM II, HTN, HLD, hypothyroidism who transferred from outside facility for cardiogenic shock on . Pt is intubated and sedated on precedex and propofol at 6.9ml/hr (~182 kcals over 24hrs). She is on a lasix drip, along with pressors (vasopressin currently order, dobutamine on JAN also-not currently infusing). Note serum Na + 125. Nutrition consult received for TF recs. Recommendation: REC TF of Nutren 1.5 with goal rate 35ml/hr +4pk prosource protein to provide at goal rate 1395 kcals (~1577 kcals with propofol avg), 112 g protein, and 592 ml free H2O (assuming 22hr infusion with PO synthroid) Intervention / Plan: Monitor EN intake/tolerance when initiated. Paged primary team with EN recs. Monitor wt trends, labs, meds, GI symptoms. Nutrition Diagnosis: Nutrition Diagnosis: Inadequate protein-energy intake Etiology: intubation Signs & Symptoms: NPO status without EN. Goals: EN tolerated and meeting >75% of nutritional needs Time Frame: Within 72 Hours Breanna Puckett MA, RD, LD, [facility] *[id number] in this encounter Miscellaneous Notes * Patient Education - Bbo Mcgee PHARMD - 04/03/2018 10:09 AM CDT On 04/03/2018, Farheen Gutierres was counseled and provided with a list of her discharge medications as part of her After Visit Summary. The patient was instructed to bring this medication list to her next doctor's appointment and to update the list with any medication changes. Where indicated, the patient was provided with additional medication and/or disease-state information. All patient questions were answered and patient acknowledged understanding of the medications, side effects, and other pertinent medication information. Bob Mcgee, LALITO 04/03/2018 * Case Mgmt DC Plan - Kyleigh Rojas - 04/03/2018 8:03 AM CDT Case Management Progress Note NAME:Farheen Gutierres :[birth year] AGE: 68 y.o. ADMISSION DATE: 03/18/2018 DAYS ADMITTED: LOS: 16 days Todays Date: 04/03/2018 Plan Discharge to [facility] around 9:30am/10am via family transport. Interventions ? Support Support: Pt/Family Updates re:POC or DC Plan, Patient Education ? Info or Referral Information or Referral to Community Resources: No Needs Identified ? Discharge Planning Discharge Planning: Inpatient Rehabilitation HF team confirmed patient is medically stable to discharge this morning to [facility]. SW notified bedside RN of anticipated discharge time of 9:30am/10am via family transport (and emphasized importance of early discharge due to two hour drive and needing patient to participate in 3 hours of therapy upon arrival). Per mention of patient/, MARYANN requested she be sent with some briefs. RN agreeable. MARYANN inquired about patient's oxygen needs. Per RN, patient used during the night and is able to safely transport to [facility] without oxygen. MARYANN provided RN report number, . SW completed transfer packet and placed it outside patient's room. HF resident completed interfacility discharge orders. MARYANN faxed signed discharge orders to [facility], Attn: February, fax: [phone]. MARYANN requested HF resident call physician report to [facility] physician, Dr. Tejinder Christianson, and provided cell # [phone]. MARYANN met with patient and at bedside to review the above. Both in agreement with discharge plan; just awaiting nursing help to disconnect from monitor, etc. Both remain comfortable with providing discharge to facility. No other needs identified. MARYANN left voicemail message for February ([phone]) to confirm discharge; noted anticipated time for patient/ leaving hospital is around 10am. Per request of HF attending, MARYANN encouraged [facility] contact HF Clinic with any concerns/signficant changes while patient is at facility as patient will follow with HF Clinic. SW will remain available. UPDATE 10:15am: MARYANN received a return call from February at [facility]. February confirmed discharge paperwork was received via fax; requested HF resident also call report to their software sales, Dr. Ramesh (cell [phone]) . MARYANN paged HF resident with request. ? Medication Needs Medication Needs: Medication Assistance Resources in the Community (Copay card ) ? Financial Financial: No Needs Identified ? Legal Legal: No Needs Identified ? Other Other/None: No needs identified Disposition ? Expected Discharge Date Expected Discharge Date: 04/03/18 ? Transportation Does the patient need discharge transport arranged?: No Transportation Name, Phone and Availability #1: Neo graf Does the patient use Medicaid Transportation?: No ? Next Level of Care (Acute Psych discharges only) ? Discharge Disposition [facility] [address] [place] [address] Facility ph: [phone] Liaison: February, cell [phone] or [phone] Kyleigh Rojas [facility] Inpatient Heart Failure Negative Notcher Phone: [phone] Pager: [phone] * Patient Education - Autumn Akbar PHARMD - 04/02/2018 4:03 PM CDT Pharmacy Heart Failure Medication Teaching This patient was provided with both verbal and written drug information regarding how to use a Med Action Plan medication list. A preliminary Med Action Plan Medication list/calendar was given to the patient and spouse. Discussion with the patient included: the medication regimen, dosing, monitoring , and indications. Emphasis was placed on the importance of medication compliance. The patient was encouraged to contact the pharmacist with any further questions. Autumn Akbar PHARMMaria Elena Pgr: [phone] * Case Mgmt DC Plan - Kyleigh Rojas - 04/02/2018 11:05 AM CDT Case Management Progress Note NAME:Farheen Gutierres :[birth year] AGE: 68 y.o. ADMISSION DATE: 03/18/2018 DAYS ADMITTED: LOS: 15 days Todays Date: 04/02/2018 Plan Anticipate discharge to [facility] rehab once medically stable, likely tomorrow. Interventions ? Support Support: Pt/Family Updates re:POC or DC Plan, Patient Education ? Info or Referral Information or Referral to Community Resources: No Needs Identified ? Discharge Planning Discharge Planning: Inpatient Rehabilitation MARYANN spoke with liaison at [facility], February (cell ). February did not receive clinical updates MARYANN faxed yesterday late afternoon. February confirmed she will review updates once received and submit to insurance for authorization. MARYANN faxed clinical updates to February, fax: . MARYANN discussed patient's plan of care/discharge plans with [facility]CM and [facility] HF team anticipates patient will be medically stable to discharge to [facility] tomorrow pending insurance authorization. Per EMR, patient no longer requires oxygen at rest or with activity. MARYANN received call from February stating insurance approved inpatient rehab stay. Per February, [facility] prefers hospital discharge/IPR admit early enough in the day to allow for time for patient to participate in 3 hours of therapy upon arrival. February in agreement with tentative discharge time of 9:30am/10am. February confirmed facility does not provide transport at time of discharge or for important follow-up outpatient appointments. SW to reinforce no 'pit stops' between [facility] and [facility] if family provides transport. *Per February, RN report and physician report will need to be called upon discharge : RN report # : [phone] Physician report # : Dr. Tejinder Christianson, SW spoke with bedside RN who feels transport via family vehicle is appropriate at time of discharge. SW notified Rounding RN. SW also notified HF resident (Jas Yousif) of above including tentative discharge time and requested he call IPR physician at time of discharge. HF resident in agreement. SW met with patient and at bedside to discuss the above. Both in agreement with discharge plan and for family to provide transportation. SW explained [facility] does not provide transportation at discharge or for follow -up appointments. SW offered quote for wheelchair van ($300) as obtained from transportation quote tool and explained insurance does not cover this, however patient and prefer family transport. emphasized family will be able to provide transportation to follow-up appointment(s) if he is unable. Both expressed appreciation of SW assistance. SW notified bedside RN of tentative discharge timeline and provided RN report number. SW requested RN relay information in RN handoff. SW will complete transfer packet and fax discharge orders (fax: [phone]) once discharge is confirmed. ? Medication Needs Medication Needs: Medication Assistance Resources in the Community (Copay card ) ? Financial Financial: No Needs Identified ? Legal Legal: No Needs Identified ? Other Other/None: No needs identified Disposition ? Expected Discharge Date Expected Discharge Date: 04/03/18 ? Transportation Does the patient need discharge transport arranged?: No Transportation Name, Phone and Availability #1: niharika Does the patient use Medicaid Transportation?: No ? Next Level of Care (Acute Psych discharges only) ? Discharge Disposition [facility] [address] [place] [address] Facility ph: [phone] Liaison: February, cell [phone] or [phone] Kyleigh Rojas [facility] Inpatient Heart Failure Negative Notcher Phone: [phone] Pager: [phone] * Case Mgmt DC Plan - Kyleigh Rojas - 04/01/2018 3:44 PM CDT Formatting of this note may be different from the original. Case Management Progress Note NAME:Farheen Gutierres :[birth year] AGE: 68 y.o. ADMISSION DATE: 03/18/2018 DAYS ADMITTED: LOS: 14 days Todays Date: 04/01/2018 Plan Discharge planning is ongoing. Anticipate discharge to [facility] pending acceptance and insurance approval. Interventions ? Support Support: Pt/Family Updates re:POC or DC Plan, Patient Education ? Info or Referral Information or Referral to Community Resources: No Needs Identified ? Discharge Planning Discharge Planning: Inpatient Rehabilitation PT/OT continue to recommend inpatient setting upon discharge. Additionally[facility] "Post-acute rehabilitation needs/disposition: Patient currently w/ goals in therapies and likely medical complexity appropriate for acute inpatient rehab at discharge." MARYANN discussed patient's plan of care and discharge plans with NCM and HF team in huddle. MARYANN reiterated patient/family's preferred placement, [facility] (and swing bed), are unable to accept patient on IV inotrope. HF attending voiced plan to discontinue IV dobutamine today and monitor patient to determine if she tolerates discontinuation. MARYANN faxed updated clinicals to [facility], Attn: February. . MARYANN left voicemail message for [facility] IPR liaison, February (cell [phone]) , notifying of incoming fax with clinical updates, discontinuation of IV dobutamine, and anticipated discharge date (like Sunday04/03/18). MARYANN/PABLOM will remain available. ? Medication Needs Medication Needs: Medication Assistance Resources in the Community (Copay card ) ? Financial Financial: No Needs Identified ? Legal Legal: No Needs Identified ? Other Other/None: No needs identified Disposition ? Expected Discharge Date Expected Discharge Date: 04/03/18 ? Transportation Does the patient need discharge transport arranged?: No Transportation Name, Phone and Availability #1: niharika Does the patient use Medicaid Transportation?: No ? Next Level of Care (Acute Psych discharges only) ? Discharge Disposition Durable Medical Equipment No service has been selected for the patient. [facility] Dest[facility] No service has been selected for the patient. Home Care No service has been selected for the patient. Dialysis/Infusion No service has been selected for the patient. Kyleigh Rojas, [facility] Inpatient Heart Failure Negative Notcher Phone: [phone] Pager: [phone] * Care Plan - Arthur Cruz RN - 04/01/2018 4:59 AM CDT Problem: Nutrition Deficit Goal: Adequate nutritional intake Outcome: Goal Ongoing Patient on a cardiac diet tolerating well. Problem: Falls, High Risk of Goal: Absence of falls-Adult Patient Outcome: Goal Ongoing Patient has been free from falls this shift, fall bundle in place. Problem: Self-Care Deficit Goal: Maximize ADL functioning Outcome: Goal Ongoing Patient currently working with PT and OT this shift. Problem: Discharge Planning Goal: Participation in plan of care Outcome: Goal Ongoing Patient updated on plan of care this shift, all questions answered, no concerns expressed at this moment. * Case Mgmt DC Plan - Mary Marin RN - 03/29/2018 3:47 PM CDT Formatting of this note may be different from the original. Case Management Progress Note NAME:Farheen Gutierres :[birth year] AGE: 68 y.o. ADMISSION DATE: 03/18/2018 DAYS ADMITTED: LOS: 11 days Todays Date: 03/29/2018 Plan: DCP ongoing. SW following for possible DC to IPR vs Swing Bed at [facility]. working to wean IV dobutamine at this time. Interventions ? Support Support: Pt/Family Updates re:POC or DC Plan, Patient Education ? Info or Referral ? Discharge Planning Discharge Planning: Inpatient Rehabilitation Rehab consult placed for assistance with DC planning. ? Medication Needs Medication Needs: Medication Assistance Resources in the Community (Copay card ) Covering [facility] reviewed chart and discussed POC with primary SW/team. [facility] provided 30-day free and $10/mo copay cards to pharmacist in case of need. Will continue to follow. ? Financial ? Legal ? Other Disposition ? Expected Discharge Date Expected Discharge Date: 04/03/18 ? Transportation Does the patient need discharge transport arranged?: No Transportation Name, Phone and Availability #1: niharika Does the patient use Medicaid Transportation?: No ? Next Level of Care (Acute Psych discharges only) ? Discharge Disposition = Durable Medical Equipment No service has been selected for the patient. [facility] No service has been selected for the patient. [facility] Home Care No service has been selected for the patient. [facility] Dialysis/Infusion No service has been selected for the patient. Mary Marin RN, BSN Integrated Nurse Manufacturing Sales Representative Ph: [phone] Pager: [phone] * Patient Education - Autumn Akbar, PHARMD - 03/29/2018 11:51 AM CDT INITIAL PHARMACIST ASSESSMENT NOTE On day #11 of admission, the pharmacist met with the patient and her spouse and reviewed the following information: Management of medications is performed by: patient self medicates, however has the support of her who helps manage some of her medications. She uses a BID pill box organizer and takes her medications in the AM and PM. 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 Reports her previous water pill was hydrochlorothiazide. Patient denies missing doses of medication, however may take her AM medication 2 -3 hours late on some days. Patient was not weighing herself GRIP ASSEMBLER or recording weights. Barriers to medication adherence: Patient has prescription insurance coverage, however has a higher copay of $ 50 for Levemir and Januvia. Patient and spouse state that they are able to afford patient's copays at this time. Patient was prescribed Eliquis this hospitalization, however may be able to qualify for a copay card due to commerical insurance. New HF diagnosis - patient reports that it is overwhelming to hear just how sick her heart is, but both her and her spouse are willing learners and appreciate updates on any new or changed HF medications. Pharmacy patient would like discharge medications sent to: [facility] ( [place], [place]) Recommended pharmacy f/u: HF medication education, on any new or changed medications Eliquis copay card + 30day free card ---> will supply to patient closer to discharge Pharmacy Heart Failure Medication Teaching This patient was provided with both verbal drug information for their heart medications, including apixaban (ELIQUIS), amiodarone, bumetanide, and digoxin. Discussion with the patient included: the medication regimen, dosing, and monitoring. Emphasis was placed on the importance of medication compliance. Patient and spouse were given education on HF Zones and importance of recording daily weights. The patient was encouraged to contact the pharmacist with any further questions. Autumn Akbar, ÁNGELD Pgr: [phone] * Case Mgmt DC Plan - Kyleigh Rojas - 03/29/2018 10:17 AM CDT Case Management Progress Note NAME:Farheen Gutierres :[birth year] AGE: 68 y.o. ADMISSION DATE: 03/18/2018 DAYS ADMITTED: LOS: 11 days Todays Date: 03/29/2018 Plan Anticipate discharge to [facility]) inpatient rehab pending insurance approval and patient's ability to wean off IV dobutamine. Interventions ? Support Support: Pt/Family Updates re:POC or DC Plan, Patient Education ? Info or Referral ? Discharge Planning Discharge Planning: Inpatient Rehabilitation Rounding RN notified SW of patient/family request to discharge to [facility] inpatient rehab. SW contacted [facility] liaison, February (cell: [phone]), to discuss patient. February will confirm with facility regarding ability to manage IV dobutamine if patient is unable to tolerate weaning off medication. SW sent referral via [employer]; faxed to [phone]. SW discussed patient's plan of care and discharge plans with NCM and HF team in [facility]. HF attending is hopeful patient will not need IV dobutamine at discharge. February later contacted SW confirming their IPR unit and swing bed is unable to accept patients on IV inotropes; states only their hospital ICU can manage patients on such infusion. SW met with patient and , Niharika, at bedside to discuss discharge plans. Patient and Niharika appreciative of visit. SW reviewed levels of care including discharge to placement vs home. Patient and Niharika do not feel discharge home will be safe/appropriate due to patient's needs, his work schedule (travels a lot), and condition of their home (recently started renovation project). SW reviewed placement levels of care including SNF/IPR/ LTACH. SW noted limitations with SNF and IPR placement if patient needs IV inotrope at discharge as facilities, including [facility], are unable to accept patients on IV intropes. Patient and Niharika voiced understanding. Patient and Niharika are hopeful patient will be able to tolerate being off IV inotrope and be a candidate for IPR. Patient confirmed preference for [facility] IPR; noted she is motivated to participate in 3 hours of therapy/day. Patient and Niharika agreeable to pursuing swing bed at [facility] if not a candidate for IPR. Patient agreeable to continuing to speak with [facility] regarding IPR vs swing bed placement. called February at [facility] (cell: [phone]) to relay the above. February confirmed she received patient referral. Per February, patient appears to be an appropriate candidate for IPR at this time as long as she is unable to wean off of IV inotrope. MARYANN and February will follow-up on Sunday. ? Medication Needs ? Financial ? Legal ? Other Disposition ? Expected Discharge Date Expected Discharge Date: 03/29/18 ? Transportation Does the patient need discharge transport arranged?: No Transportation Name, Phone and Availability #1: niharika Does the patient use Medicaid Transportation?: No ? Next Level of Care (Acute Psych discharges only) ? Discharge Disposition Kyleigh Rojas [facility] Inpatient Heart Failure Negative Notcher Phone: [phone] Pager: [phone] * Procedures (Immed Post or Bedside) - Jovanny Fry MD - 03/27/2018 1:03 PM CDT Cardiac Electrophysiology Brief Post-Procedure Note Attending: Jovanny Fry MD Preoperative diagnosis: Atrial fibrillation, sinus node dysfunction, and nonischemic cardiomyopathy Postoperative diagnosis: Atrial fibrillation, sinus node dysfunction, and nonischemic cardiomyopathy Procedure(s) Performed: Dual-chamber ICD implantation Procedure Description: Successful Dual-chamber ICD implantation (left-sided) Procedure Findings: Adequate testing of device leads -Had to reposition the atrial lead 4 times before the lead was stay in place. It dislodged at the prior positions -Had to reposition the RV lead twice before achieving adequate sensing. Anesthesia: Moderate sedation via RN Estimated blood loss: 30 mL Complications: None Specimens removed: None Closing: interrupted 2-0 Vicryl, continuous 3-0 Vicryl, Dermabond then dressing Recommendations: - Pain control as needed - Device interrogation, ECG, and Chest X-Ray in the morning - No post-procedure antibiotics - No heparin or LMWH products for 72 hours post-procedure - Continue oral anticoagulation given recent cardioversion - Incision Check in one week * Care Plan - Isa Hackett RN - 03/26/2018 9:26 PM CDT Problem: Infection, Risk of Goal: Absence of infection Outcome: Goal Ongoing Contact precautions continued. Problem: Falls, High Risk of Goal: Absence of falls-Adult Patient Outcome: Goal Ongoing High fall risk bundle in place. Staff assist x2 * Care Plan - Isa Hackett RN - 03/25/2018 11:38 PM CDT Problem: Infection, Risk of, Central Venous Catheter-Associated Bloodstream Infection Goal: Absence of CVC Associated Bloodstream infection Outcome: Goal Achieved Date Met: 03/25/18 CVC removed 03/25. Problem: Nutrition Deficit Goal: Adequate nutritional intake Outcome: Goal Ongoing Enteral feeding stopped. Advanced to regular diet. NPO for procedure 03/26 Problem: Infection, Risk of Goal: Absence of infection Outcome: Goal Ongoing Contact precautions in place Goal: Knowledge of Infection Control Procedures Outcome: Goal Ongoing Patient and family aware of isolation precautions Problem: Falls, High Risk of Goal: Absence of falls-Adult Patient Outcome: Goal Ongoing High fall risk bundle in place. * Case Mgmt DC Plan - Mayr Marin RN - 03/25/2018 3:18 PM CDT Case Management Admission Assessment NAME:Farheen Gutierres :1949 AGE: 68 y.o. ADMISSION DATE: 03/18/2018 DAYS ADMITTED: LOS: 7 days Todays Date: 03/25/2018 Source of Information: Patient and EMR Plan: DCP ongoing Plan: CM Assessment, Assist PRN with SW/NCM Services, Discharge Planning for Home Anticipated, Discharge Planning for Facility Anticipated History of Present Illness: 68 y.o. female with a history of Diabetes mellitus on insulin, Hypertension, Hyperlipidemia, Hypothyroidism, admitted for management of cardiogenic shock (resolved) and acute decompensated Heart failure. Pt remains in afib. Pt continues with IV dobutamine and bumex - will stop amiodarone and initiate digoxin load today. EP consulted for possible pacemaker/AV node ablation. ID following for infection. NCM reviewed medical record and discussed POC with SW/team. Met with pt alone in room to introduce self -- Pt states her is off unit for lunch. Discussed role, and provided contact information. Encouraged pt to reach out with questions and concerns. Pt states she and her live in [place], [place]. 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 Pt endorses local support from friends, but not family. 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 Owns no DME and denies h/o placements or HH. NCM briefly talked about sometimes pts consider placement for rehabilitation following long hospitalization. Pt states she has not thought about this or talked with her about this. NCM will continue to follow and discuss with SW. Patient Address/Phone [address] [phone] (home) [phone] (work) Emergency Contact Extended Emergency Contact Information Primary Emergency Contact: Niharika Gutierres Address: [address] [place] [address] [facility] Mobile Relation: Spouse Healthcare Directive Transportation Does the patient need discharge transport arranged?: No Transportation Name, Phone and Availability #1: niharika Does the patient use Medicaid Transportation?: No Expected Discharge Date Expected Discharge Date: 03/29/18 Living Situation Prior to Admission ? Living Arrangements Type of Residence: Home, independent Living Arrangements: Spouse/significant other ( Niharika ) Bathroom Shower / Tub: Tub/Shower Unit How many levels in the residence?: 1 Can patient live on one level if needed?: Yes Does residence have entry and/or side stairs?: Yes (2 STEVIE) Assistance needed prior to admit or anticipated on discharge: Yes (No assistance needed GRIP ASSEMBLER - Anticipate need for assistance at discharge) Who provides assistance or could if needed?: / Friends (no local family) Are they in good health?: Yes Can support system provide 24/7 care if needed?: Maybe ( 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 Level of Function Prior level of function: Independent (Pt endorses no mobility concerns GRIP ASSEMBLER - ambulated w/o device. Did endorse some fatigue/SOA GRIP ASSEMBLER. Pt drives, etc.) ? Cognitive Abilities Cognitive Abilities: Alert and Oriented, Engages in problem solving and planning Financial Resources ? Coverage Primary Insurance: Commercial insurance (BCBS of - through 's employer ) Secondary Insurance: Medicare (A) Additional Coverage: RX ? Source of Income Source Of Income: SSI (Retired vinyl welder and fabricator) ? Financial Assistance Needed? No Psychosocial Needs ? Mental Health Mental Health History: Yes (States she takes Rx prescribed by Dr. Cummings) Mental Health Symptoms: Feeling depressed ? Substance Use History Substance Use History Screen: Yes Comment: Denies tobacco, EOTH and illicit substances ? Other No Current/Previous Services ? PCP Brad Cummings, , ? Pharmacy [facility] #[id number] [place], [place] - [address] [facility] [address] [facility] [id number] ? Durable Medical Equipment Durable Medical Equipment at home: None ? Home Health Receiving home health: No ? Hemodialysis or Peritoneal Dialysis Undergoing hemodialysis or peritoneal dialysis: No ? Tube/Enteral Feeds Receive tube/enteral feeds: No ? Infusion Receive infusions: No ? Private Duty Private duty help used: No ? Home and Community Based Services Home and community based services: No ? Christos Abraham: N/A ? Hospice Hospice: No ? Outpatient Therapy PT: No OT: No HATCHERY MANAGER: No ? [facility] Facility/Long Term SNF: No NH: No ? Inpatient Rehab IPR: No ? Long-Term Acute Care Hospital LTACH: No ? Acute Hospital Stay Acute Hospital Stay: Yes (Interfacility transfer) Mary Marin RN, BSN Integrated Nurse Manufacturing Sales Representative Ph: [phone] Pager: [phone] * Care Plan - Isa Hackett RN - 03/24/2018 11:31 PM CDT Problem: Nutrition Deficit Goal: Adequate nutritional intake Outcome: Goal Ongoing Nutren 1.5 @ 55mL/hr Problem: Infection, Risk of Goal: Absence of infection Outcome: Goal Ongoing Contact precautions in place. Problem: Falls, High Risk of Goal: Absence of falls-Adult Patient Outcome: Goal Ongoing High fall risk bundle in place. * Critical Results - Cooper Vicente RN - 03/22/2018 12:07 PM CDT Critical result or procedure called (document test and value, and read back): PTT 139.7 Time MD/CTE TEACHER Notified: N/A, per protocol MD/CTE TEACHER Name: N/A MD/CTE TEACHER Response/Orders Given: N/A Infusion paused for 90 minutes * Case Mgmt DC Plan - Mary Marin RN - 03/22/2018 9:14 AM CDT Patient remains intubated in ICU on multiple gtts/pressors. Pt not appropriate for assessment. NCM will to continue to follow. Mary Marin RN, BSN Integrated Nurse Manufacturing Sales Representative Ph: [phone] Pager: [phone] * Care Plan - Karen Nichols RN - 03/22/2018 12:43 AM CDT Problem: Infection, Risk of, Urinary Catheter-Associated Urinary Tract Infection Goal: Absence of urinary catheter-associated infection Outcome: Goal Ongoing CAUTI preventative measures in place; indwelling urinary catheter wipes used qshift and post BM Problem: Nutrition Deficit Goal: Adequate nutritional intake Outcome: Goal Ongoing Nutren 1.5 at 35 ml/hr with 30 ml H2O bolus q4hr; 4 protein packs/day via corpak ; pt tolerates with minimal residuals Problem: Falls, High Risk of Goal: Absence of falls-Adult Patient Outcome: Goal Ongoing High fall risk bundle implemented * Case Mgmt DC Adolph - Mary Marin RN - 03/21/2018 1:03 PM CDT NCM attempted to meet with pt for assessment. Pt remains intubated - off unit at this time. Will continue to follow. Mary Marin RN, BSN Integrated Nurse Manufacturing Sales Representative Ph: [phone] Pager: [phone] * Critical Results - Patti Solano RN - 03/19/2018 8:16 PM CDT Critical result or procedure called (document test and value, and read back): + BC from L AC @ 0200 01/19, Gram + Cocci in both bottles (strep), 1 bottle (staph) . Time MD/CTE TEACHER Notified: 2017 MD/CTE TEACHER Name: Dr Primitivo Johnson MD/CTE TEACHER Response/Orders Given: Will start abx. Continue to monitor closely. * Case Mgmt DC Adolph - Mary Marin RN - 03/19/2018 4:19 PM CDT Formatting of this note may be different from the original. Case Management Progress Note NAME:Farheen Gutierres :1949 AGE: 68 y.o. ADMISSION DATE: 03/18/2018 DAYS ADMITTED: LOS: 1 day Todays Date: 03/19/2018 Problem: 68 y.o.femalewith history of IDDM II, HTN, HLD, hypothyroidism who is transferred from outside facility for cardiogenic shock. Pt to CCL for biopsy and swan placement with Dr. Gray. Dr. Gray, Dr. Anaya and Dr. Jones spoke with and signed consent at bedside. Will implement diuril order upon return. IABP 1:1; ventilator per RT. Dopamine, Dobutamine, Levophed, Vasopressin, Fentanyl, Propofol, and lasix infusing upon departure. supported and waiting in room. Plan: TBD Interventions ? Support Covering NCM reviewed chart and discussed POC with primary SW/team. Patient is critically and remains in ICU with guarded prognosis at this time. NCM will continue to follow for assessment when appropriate. ? Info or Referral ? Discharge Planning ? Medication Needs ? Financial ? Legal ? Other Disposition ? Expected Discharge Date Expected Discharge Date: 03/29/18 ? Transportation ? Next Level of Care (Acute Psych discharges only) ? Discharge Disposition Durable Medical Equipment No service has been selected for the patient. [facility] Destination No service has been selected for the patient. Home Care No service has been selected for the patient. [facility] Dialysis/Infusion No service has been selected for the patient. Mary Marin RN, BSN Integrated Nurse Manufacturing Sales Representative Ph: [phone] Pager: [phone] * Advanced Care Planning/Resuscitation Status - Shar Yousif MBBS - 2017 1:47 AM CDT Advance Care Planning/Resuscitation Status Conversation Individuals present for advance care planning conversation: resident/fellow physician and patient surrogate decision maker Pertinent details of conversation (including direct quotes from patient or surrogate): Outcome of conversation: Full Code Documents completed as a result of this conversation: None Other documents present, which outline patient/surrogate wishes: None Shar Yousif Internal Medicine / PGY-2 Pager [phone] in this encounter Plan of Treatment Name Priority Associated Diagnoses Date/Time DEVICE EVALUATION - ICD Routine 04/02/2018 3:08 PM CDT Name Priority Associated Diagnoses Order Schedule ECG 12-LEAD Routine ONE TIME for 1 Occurrences starting 03/28/2018 until 03/28/2018 BASIC METABOLIC PANEL STAT Cardiogenic shock (HCC) Expected: 04/16/2018 (Approximate), Expires: 04/03/2019 BASIC METABOLIC PANEL Routine Cardiogenic shock (HCC) Expected: 2017 (Approximate), Expires: 04/03/2019 MAGNESIUM Routine Cardiogenic shock (HCC) Expected: 04/10/2018 (Approximate), Expires: 04/03/2019 as of this encounter Procedures Procedure Name Priority Date/Time Associated Diagnosis Comments CONSULT IV THERAPY TEAM Routine 03/31/2018 9:09 AM CDT CONSULT IV THERAPY TEAM STAT 03/26/2018 11:11 AM CDT CONSULT IV THERAPY TEAM Routine 03/19/2018 2:11 AM CDT in this encounter Results * POC GLUCOSE (04/03/2018 7:34 AM) Component Value Ref Range Glucose, POC 129 (H) 70 - 100 MG/DL Specimen Performing Laboratory MAIN LAB [address] [place] [address] * MAGNESIUM (04/03/2018 4:05 AM) Component Value Ref Range Magnesium 2.1 1.6 - 2.6 mg/dL Specimen Performing Laboratory Blood MAIN LAB [address] [place] [id number] * BASIC METABOLIC PANEL (04/03/2018 4:05 AM) Component Value Ref Range Sodium 136 (L) [...] Specimen Performing Laboratory Blood MAIN LAB [address] [place] [address] * CBC (04/03/2018 4:05 AM) Component Value Ref Range White Blood [...] - 11 FL Specimen Performing Laboratory Blood [facility] [address] [place], [place] [id number] * POC GLUCOSE (04/02/2018 9:21 PM) Component Value Ref Range Glucose, POC 332 (H) 70 - 100 MG/DL Specimen Performing Laboratory [facility] [address] [place], [place] [id number] * POC GLUCOSE (04/02/2018 6:17 PM) Component Value Ref Range Glucose, POC 171 (H) 70 - 100 MG/DL Specimen Performing Laboratory [facility] [address] [place], [place] [id number] * POC GLUCOSE (04/02/2018 5:09 PM) Component Value Ref Range Glucose, POC 238 (H) 70 - 100 MG/DL Specimen Performing Laboratory [facility] [address] [place], [place] [id number] * POC GLUCOSE (04/02/2018 1:23 PM) Component Value Ref Range Glucose, POC 245 (H) 70 - 100 MG/DL Specimen Performing Laboratory [facility] [address] [place] [address] * MAGNESIUM (04/02/2018 1:18 PM) Component Value Ref Range Magnesium 1.9 1.6 - 2.6 mg/dL Specimen Performing Laboratory Blood [facility] [address] [place], [place] [id number] * BASIC METABOLIC PANEL (04/02/2018 1:18 PM) Component Value Ref Range Sodium 135 (L) 137 - 147 MMOL/L Potassium 4.3 3.5 - 5.1 MMOL/L Chloride 100 98 - 110 MMOL/L CO2 28 21 - 30 MMOL/L Anion Gap 7 3 - 12 Glucose 205 (H) 70 - 100 MG/DL Blood Urea Nitrogen 36 (H) 7 - 25 MG/DL Creatinine 1.20 (H) 0.4 - 1.00 MG/DL Calcium 9.7 8.5 - 10.6 MG/DL eGFR Non 45 (L) >60 mL/min Comment: The eGFR is not validated for use in drug dosing adjustments.Continue to use estimated creatinine clearance per dosing reference text.Please contact the Clinical Pharmacist for questions. eGFR 54 (L) >60 mL/min Comment: The eGFR is not validated for use in drug dosing adjustments.Continue to use estimated creatinine clearance per dosing reference text.Please contact the Clinical Pharmacist for questions. Specimen Performing Laboratory Blood MAIN LAB [address] [place] [address] * CBC (04/02/2018 1:18 PM) Component Value Ref Range White Blood Cells 7.8 4.5 - 11.0 K/UL RBC 4.30 4.0 - 5.0 M/UL Hemoglobin 11.8 (L) 12.0 - 15.0 GM/DL Hematocrit 36.5 36 - 45 % MCV 85.0 80 - 100 FL MCH 27.4 26 - 34 PG MCHC 32.2 32.0 - 36.0 G/DL RDW 17.6 (H) 11 - 15 % Platelet Count 159 150 - 400 K/UL MPV 8.5 7 - 11 FL Specimen Performing Laboratory Blood MAIN LAB [address] [place] [address] * 2-D + DOPPLER ECHOCARDIOGRAM (04/02/2018 12:58 PM) Component Value Ref Range IVS 0.78 0.6 - 0.9 cm LVIDD 5.72 3.8 - 5.2 cm LVIDS 5.15 2.2 - 3.5 cm PW 0.84 0.6 - 0.9 cm TDI e' 0.05 m/s LVOT peak alisson 0.85 m/s Right Ventricular Mid 3.01 1.9 - 3.5 cm Diameter LA size 3.99 2.7 - 3.8 cm LA volume 66.86 22 - 52 mL Right Atrial Area 17.51 <18 cm2 Right Atrial Major 5.93 2.2 - 2.8 cm Dimension and a peak gradient of 7.56 mmHg AV peak velocity 1.37 m/s MV Peak A Alisson 0.35 m/s MV Peak E Alisson PW 1.23 m/s Right Ventricular Basal 4.20 2.5 - 4.1 cm Diameter Right Heart Systolic 2.37 >1.7 cm Mmode TAPSE Sinus 2.97 2.7 - 3.3 cm BSA 2.08 m2 FS 9.97 28 - 44 % EF 16.95 % Left Atrium Index 32.14 16 - 34 AV index ([place]) 0.62 E/A ratio 3.51 E/E' ratio 24.60 CV ECHO PV PERSONNEL ANALYST TAMI Medrano - David LV mass 173.90 66 - 150 g RWT 0.29 <=0.42 TV rest pulmonary artery 42 mmHg pressure Right Heart Systolic TDI 0.140 m/s S' Cardiology Ultrasound Siemens [id number] Machine Left Ventricle Mass Index 83.61 44 - 88 g/m2 ECHO EF 25 % Specimen Performing Laboratory OTHER OUTSIDE LAB Narrative Severe, diffuse LV hypokinesis, EF 25% Mildly dilated, spherical LV Moderate LV diastolic dysfunction Mild left atrial enlargement Device leads in right-sided chambers Mild pulmonary hypertension Compared to 03/21/18 the appearance is similar * POC GLUCOSE (04/02/2018 8:12 AM) Component Value Ref Range Glucose, POC 100 70 - 100 MG/DL Specimen Performing Laboratory MAIN LAB [address] [place] [address] * POC GLUCOSE (04/01/2018 9:18 PM) Component Value Ref Range Glucose, POC 117 (H) 70 - 100 MG/DL Specimen Performing Laboratory MAIN LAB [address] [place] [address] * POC GLUCOSE (04/01/2018 4:51 PM) Component Value Ref Range Glucose, POC 256 (H) 70 - 100 MG/DL Specimen Performing Laboratory MAIN LAB [address] [place] [address] * BASIC METABOLIC PANEL (04/01/2018 3:31 PM) Component Value Ref Range Sodium 134 (L) 137 - 147 MMOL/L Potassium 4.4 3.5 - 5.1 MMOL/L Chloride 98 98 - 110 MMOL/L CO2 29 21 - 30 MMOL/L Anion Gap 7 3 - 12 Glucose 342 (H) 70 - 100 MG/DL Blood Urea Nitrogen 33 (H) 7 - 25 MG/DL Creatinine 1.20 (H) 0.4 - 1.00 MG/DL Calcium 9.7 8.5 - 10.6 MG/DL eGFR Non 45 (L) >60 mL/min Comment: The eGFR is not validated for use in drug dosing adjustments.Continue to use estimated creatinine clearance per dosing reference text.Please contact the Clinical Pharmacist for questions. eGFR 54 (L) >60 mL/min Comment: The eGFR is not validated for use in drug dosing adjustments.Continue to use estimated creatinine clearance per dosing reference text.Please contact the Clinical Pharmacist for questions. Specimen Performing Laboratory Blood MAIN LAB [address] [place] [address] * PV GROIN DUPLEX SCAN RT ONLY (04/01/2018 9:44 AM) Component Value Ref Range RIGHT COLLAR WORKER PROX SYS MAX 1.80 m/s RIGHT GROIN COLLAR WORKER SYS 1.80 m/s RIGHT GROIN SFA SYS 0.90 m/s RIGHT GROIN PFA SYS 0.55 m/s Cardiology Ultrasound [place] Epiq Machine Specimen Performing Laboratory OTHER OUTSIDE LAB Narrative No evidence of pseudoaneurysm, AV fistula, or hematoma is present in the right groin. * POC GLUCOSE (04/01/2018 8:42 AM) Component Value Ref Range Glucose, POC 125 (H) 70 - 100 MG/DL Specimen Performing Laboratory MAIN LAB [address] [place] [address] * CBC (04/01/2018 7:49 AM) Component Value Ref Range White Blood Cells 10.2 4.5 - 11.0 K/UL RBC 4.28 4.0 - 5.0 M/UL Hemoglobin 11.4 (L) 12.0 - 15.0 GM/DL Hematocrit 36.7 36 - 45 % MCV 85.8 80 - 100 FL MCH 26.6 26 - 34 PG MCHC 31.0 (L) 32.0 - 36.0 G/DL RDW 16.8 (H) 11 - 15 % Platelet Count 137 (L) 150 - 400 K/UL MPV 8.5 7 - 11 FL Specimen Performing Laboratory Blood MAIN LAB [address] [place] [address] * MAGNESIUM (04/01/2018 3:57 AM) Component Value Ref Range Magnesium 2.2Comment: SLT HEMOLYSIS 1.6 - 2.6 mg/dL Specimen Performing Laboratory MAIN LAB [address] [place] [address] * BASIC METABOLIC PANEL (04/01/2018 3:57 AM) Component Value Ref Range Sodium 134 (L) 137 - 147 MMOL/L Potassium 4.7Comment: SLT HEMOLYSIS 3.5 - 5.1 MMOL/L Chloride 101 98 - 110 MMOL/L CO2 23 21 - 30 MMOL/L Anion Gap 10 3 - 12 Glucose 113 (H) 70 - 100 MG/DL Blood Urea Nitrogen 34 (H) 7 - 25 MG/DL Creatinine 1.17 (H) 0.4 - 1.00 MG/DL Calcium 9.4 8.5 - 10.6 MG/DL eGFR Non 46 (L) >60 mL/min Comment: The eGFR is not validated for use in drug dosing adjustments.Continue to use estimated creatinine clearance per dosing reference text.Please contact the Clinical Pharmacist for questions. eGFR 56 (L) >60 mL/min Comment: The eGFR is not validated for use in drug dosing adjustments.Continue to use estimated creatinine clearance per dosing reference text.Please contact the Clinical Pharmacist for questions. Specimen Performing Laboratory MAIN LAB [address] [place] [address] * DIGOXIN LEVEL (04/01/2018 3:57 AM) Component Value Ref Range Digoxin 1.3 (H) 0.5 - 1.0 NG/ML Specimen Performing Laboratory Blood [facility] [address] [place] [address] * POC GLUCOSE (03/31/2018 9:20 PM) Component Value Ref Range Glucose, POC 329 (H) 70 - 100 MG/DL Specimen Performing Laboratory MAIN LAB [address] [place] [address] * POC GLUCOSE (03/31/2018 6:39 PM) Component Value Ref Range Glucose, POC 250 (H) 70 - 100 MG/DL Specimen Performing Laboratory [facility] [address] [place] [address] * MAGNESIUM (03/31/2018 5:50 PM) Component Value Ref Range Magnesium 2.1 1.6 - 2.6 mg/dL Specimen Performing Laboratory Blood [facility] [address] [place] [address] * BASIC METABOLIC PANEL (03/31/2018 5:50 PM) Component Value Ref Range Sodium 136 (L) 137 - 147 MMOL/L Potassium 3.9 3.5 - 5.1 MMOL/L Chloride 98 98 - 110 MMOL/L CO2 32 (H) 21 - 30 MMOL/L Anion Gap 6 3 - 12 Glucose 227 (H) 70 - 100 MG/DL Blood Urea Nitrogen 35 (H) 7 - 25 MG/DL Creatinine 1.28 (H) 0.4 - 1.00 MG/DL Calcium 9.6 8.5 - 10.6 MG/DL eGFR Non 42 (L) >60 mL/min Comment: The eGFR is not validated for use in drug dosing adjustments.Continue to use estimated creatinine clearance per dosing reference text.Please contact the Clinical Pharmacist for questions. eGFR 50 (L) >60 mL/min Comment: The eGFR is not validated for use in drug dosing adjustments.Continue to use estimated creatinine clearance per dosing reference text.Please contact the Clinical Pharmacist for questions. Specimen Performing Laboratory Blood MAIN LAB [address] [place] [address] * POC GLUCOSE (03/31/2018 3:09 PM) Component Value Ref Range Glucose, POC 170 (H) 70 - 100 MG/DL Specimen Performing Laboratory [facility] [address] [place] [address] * POC GLUCOSE (03/31/2018 8:59 AM) Component Value Ref Range Glucose, POC 162 (H) 70 - 100 MG/DL Specimen Performing Laboratory [facility] [address] [place], [place] [id number] * CBC (03/31/2018 4:18 AM) Component Value Ref Range White Blood Cells 10.8 4.5 - 11.0 K/UL RBC 4.24 4.0 - 5.0 M/UL Hemoglobin 11.9 (L) 12.0 - 15.0 GM/DL Hematocrit 35.7 (L) 36 - 45 % MCV 84.1 80 - 100 FL MCH 28.0 26 - 34 PG MCHC 33.3 32.0 - 36.0 G/DL RDW 16.7 (H) 11 - 15 % Platelet Count 141 (L) 150 - 400 K/UL MPV 9.0 7 - 11 FL Specimen Performing Laboratory [facility] [address] [place] [address] * MAGNESIUM (03/31/2018 4:18 AM) Component Value Ref Range Magnesium 1.9 1.6 - 2.6 mg/dL Specimen Performing Laboratory Blood [facility] [address] [place] [address] * BASIC METABOLIC PANEL (03/31/2018 4:18 AM) Component Value Ref Range Sodium 136 (L) 137 - 147 MMOL/L Potassium 3.7 3.5 - 5.1 MMOL/L Chloride 96 (L) 98 - 110 MMOL/L CO2 32 (H) 21 - 30 MMOL/L Anion Gap 8 3 - 12 Glucose 195 (H) 70 - 100 MG/DL Blood Urea Nitrogen 34 (H) 7 - 25 MG/DL Creatinine 1.06 (H) 0.4 - 1.00 MG/DL Calcium 9.9 8.5 - 10.6 MG/DL eGFR Non 52 (L) >60 mL/min Comment: The eGFR is [...] Pharmacist for questions. Specimen Performing Laboratory Blood [facility] [address] [place] [address] * POC GLUCOSE (03/30/2018 9:42 PM) Component Value Ref Range Glucose, POC 343 (H) 70 - 100 MG/DL Specimen Performing Laboratory [facility] [address] [place] [address] * POC GLUCOSE (03/30/2018 7:22 PM) Component Value Ref Range Glucose, POC 177 (H) 70 - 100 MG/DL Specimen Performing Laboratory [facility] [address] [place] [address] * POC GLUCOSE (03/30/2018 2:10 PM) Component Value Ref Range Glucose, POC 177 (H) 70 - 100 MG/DL Specimen Performing Laboratory [facility] [address] [place] [address] * POC GLUCOSE (03/30/2018 7:52 AM) Component Value Ref Range Glucose, POC 135 (H) 70 - 100 MG/DL Specimen Performing Laboratory [facility] [address] [place] [address] * MAGNESIUM (03/30/2018 3:50 AM) Component Value Ref Range Magnesium 2.0 1.6 - 2.6 mg/dL Specimen Performing Laboratory Blood [facility] [address] [place] [address] * BASIC METABOLIC PANEL (03/30/2018 3:50 AM) Component Value Ref Range Sodium 137 137 - 147 MMOL/L Potassium 4.0 3.5 - 5.1 MMOL/L Chloride 96 (L) 98 - 110 MMOL/L CO2 34 (H) 21 - 30 MMOL/L Anion Gap 7 3 - 12 Glucose 122 (H) 70 - 100 MG/DL Blood Urea Nitrogen 33 (H) 7 - 25 MG/DL Creatinine 1.07 (H) 0.4 - 1.00 MG/DL Calcium 9.9 8.5 - 10.6 MG/DL eGFR Non 51 (L) >60 mL/min Comment: The eGFR is [...] questions. Specimen Performing Laboratory Blood MAIN LAB [address] [place] [address] * CBC (03/30/2018 3:49 AM) Component Value Ref Range White Blood Cells 10.9 4.5 - 11.0 K/UL RBC 4.32 4.0 - 5.0 M/UL Hemoglobin 12.0 12.0 - 15.0 GM/DL Hematocrit 36.4 36 - 45 % MCV 84.2 80 - 100 FL MCH 27.8 26 - 34 PG MCHC 33.0 32.0 - 36.0 G/DL RDW 16.2 (H) 11 - 15 % Platelet Count 143 (L) 150 - 400 K/UL MPV 8.7 7 - 11 FL Specimen Performing Laboratory Blood [facility] [address] [place], [place] [id number] * POC GLUCOSE (03/29/2018 9:03 PM) Component Value Ref Range Glucose, POC 257 (H) 70 - 100 MG/DL Specimen Performing Laboratory MAIN LAB [address] [place] [address] * POC GLUCOSE (03/29/2018 6:17 PM) Component Value Ref Range Glucose, POC 154 (H) 70 - 100 MG/DL Specimen Performing Laboratory MAIN LAB [address] [place] [address] * MAGNESIUM (03/29/2018 5:20 PM) Component Value Ref Range Magnesium 2.1 1.6 - 2.6 mg/dL Specimen Performing Laboratory Blood [facility] [address] [place] [address] * BASIC METABOLIC PANEL (03/29/2018 5:20 PM) Component Value Ref Range Sodium 136 (L) 137 - 147 MMOL/L Potassium 4.3 3.5 - 5.1 MMOL/L Chloride 95 (L) 98 - 110 MMOL/L CO2 34 (H) 21 - 30 MMOL/L Anion Gap 7 3 - 12 Glucose 205 (H) 70 - 100 MG/DL Blood Urea Nitrogen 35 (H) 7 - 25 MG/DL Creatinine 0.99 0.4 - 1.00 MG/DL Calcium 9.9 8.5 - 10.6 MG/DL eGFR Non 56 [...] questions. Specimen Performing Laboratory Blood MAIN LAB [address] [place] [address] * POC GLUCOSE (03/29/2018 11:23 AM) Component Value Ref Range Glucose, POC 177 (H) 70 - 100 MG/DL Specimen Performing Laboratory MAIN LAB [address] [place] [address] * POC GLUCOSE (03/29/2018 7:22 AM) Component Value Ref Range Glucose, POC 149 (H) 70 - 100 MG/DL Specimen Performing Laboratory MAIN LAB [address] [place] [address] * MAGNESIUM (03/29/2018 4:31 AM) Component Value Ref Range Magnesium 2.1 1.6 - 2.6 mg/dL Specimen Performing Laboratory Blood MAIN LAB [address] [place] [address] * BASIC METABOLIC PANEL (03/29/2018 4:31 AM) Component Value Ref Range Sodium 136 (L) 137 - 147 MMOL/L Potassium 4.2 3.5 - 5.1 MMOL/L Chloride 96 (L) 98 - 110 MMOL/L CO2 33 (H) 21 - 30 MMOL/L Anion Gap 7 3 - 12 Glucose 107 (H) 70 - 100 MG/DL Blood Urea Nitrogen 34 (H) 7 - 25 MG/DL Creatinine 1.08 (H) 0.4 - 1.00 MG/DL Calcium 9.6 8.5 - 10.6 MG/DL eGFR Non 51 (L) >60 mL/min Comment: The eGFR is [...] questions. Specimen Performing Laboratory Blood MAIN LAB [address] [place] [address] * CBC (03/29/2018 4:30 AM) Component Value Ref Range White Blood Cells 9.8 4.5 - 11.0 K/UL RBC 4.35 4.0 - 5.0 M/UL Hemoglobin 12.1 12.0 - 15.0 GM/DL Hematocrit 36.5 36 - 45 % MCV 83.9 80 - 100 FL MCH 27.9 26 - 34 PG MCHC 33.3 32.0 - 36.0 G/DL RDW 16.5 (H) 11 - 15 % Platelet Count 134 (L) 150 - 400 K/UL MPV 8.3 7 - 11 FL Specimen Performing Laboratory Blood MAIN LAB [address] [place] [address] * POC GLUCOSE (03/29/2018 3:13 AM) Component Value Ref Range Glucose, POC 94 70 - 100 MG/DL Specimen Performing Laboratory MAIN LAB [address] [place], [place] [id number] * POC GLUCOSE (03/28/2018 10:17 PM) Component Value Ref Range Glucose, POC 79 70 - 100 MG/DL Specimen Performing Laboratory [facility] [address] [place], [place] [id number] * POC GLUCOSE (03/28/2018 6:08 PM) Component Value Ref Range Glucose, POC 123 (H) 70 - 100 MG/DL Specimen Performing Laboratory [facility] [address] [place], [place] [id number] * MAGNESIUM (03/28/2018 5:25 PM) Component Value Ref Range Magnesium 2.0 1.6 - 2.6 mg/dL Specimen Performing Laboratory Blood [facility] [address] [place] [address] * BASIC METABOLIC PANEL (03/28/2018 5:25 PM) Component Value Ref Range Sodium 134 (L) 137 - 147 MMOL/L Potassium 3.6 3.5 - 5.1 MMOL/L Chloride 93 (L) 98 - 110 MMOL/L CO2 35 (H) 21 - 30 MMOL/L Anion Gap 6 3 - 12 Glucose 188 (H) 70 - 100 MG/DL Blood Urea Nitrogen 39 (H) 7 - 25 MG/DL Creatinine 1.10 (H) 0.4 - 1.00 MG/DL Calcium 9.6 8.5 - 10.6 MG/DL eGFR Non 50 (L) >60 mL/min Comment: The eGFR is [...] Performing Laboratory Blood [facility] [address] [place] [address] * DEVICE EVALUATION - ICD (03/28/2018 4:10 PM) Component Value Ref Range Generator [employer] Device Type DDD-ICD Wireless Generator Yes Generator MRI Conditional Yes Atrial Lead [employer] Atrial Lead Model # TENDRIL MRI [id number] 52cm Atrial Lead Serial # [id number] Atrial Lead Implant Date 03/27/2018 Atrial Lead Fixation active fixation Atrial Lead Polarity Bipolar Atrial Lead Pin Connector IS1 Atrial Lead MRI Yes Conditional RV Lead [employer] RV Lead Model # OPTISURE [id number] RV Lead Serial # [id number] RV Lead Implant Date 03/27/2018 RV Lead Fixation active fixation RV Lead Coil Single RV Lead JESUSITA Conditional Yes Generator Model # NADINE GALLEGOS DR [id number] Generator Serial # [id number] Generator Implnat Date 03/27/2018 Remote Monitor Serial# [id number] Accssory Serial Number [id number] Device [employer] Igor On Demand Transmitter Compatible Device Mode [...] 4-12weeks post implant Due Device Implanted By [facility] Pacemaker Dependant No Programming? Yes Date of Last Programming 03/28/18 Interrogation? Yes Date of Last 03/28/18 Interrogation Device Check by Rep Yes HF Patient Yes Remote Monitoring? Yes Date of Last Remote Check TBA Known Diagnosed AFib Yes Specimen Performing Laboratory OTHER OUTSIDE LAB Narrative In-patient "next-day" check (rep) [03/28/2018 4:12:27 PM - MICHELLE LAYNE] Device checked by Renae Correia [facility] Device rep: - pre-discharge check hammon remote inserviced. Please see attached HRM data sheet for > detail as needed.No changes made by rep. Routed to Dr Fry for co-sign. * POC GLUCOSE (03/28/2018 1:46 PM) Component Value Ref Range Glucose, POC 104 (H) 70 - 100 MG/DL Specimen Performing Laboratory MAIN LAB [address] [place] [address] * POC GLUCOSE (03/28/2018 7:35 AM) Component Value Ref Range Glucose, POC 83 70 - 100 MG/DL Specimen Performing Laboratory MAIN LAB [address] [place] [address] * CHEST 2 VIEWS (03/28/2018 5:29 AM) [...] Sue M.D. on 03/28/2018 8:54 AM. * MAGNESIUM (03/28/2018 4:04 AM) Component Value Ref Range Magnesium 1.9 1.6 - 2.6 mg/dL Specimen Performing Laboratory Blood [employer] [facility] [address] [place] [address] * BASIC METABOLIC PANEL (03/28/2018 4:04 AM) Component Value Ref Range Sodium 136 (L) 137 - 147 MMOL/L Potassium 4.2 3.5 - 5.1 MMOL/L Chloride 93 (L) 98 - 110 MMOL/L CO2 34 (H) 21 - 30 MMOL/L Anion Gap 9 3 - 12 Glucose 75 70 - 100 MG/DL Blood Urea Nitrogen 41 (H) 7 - 25 MG/DL Creatinine 1.04 (H) 0.4 - 1.00 MG/DL Calcium 9.7 8.5 - 10.6 MG/DL eGFR Non 53 (L) >60 mL/min Comment: The eGFR is [...] Performing Laboratory Blood [facility] [address] [place] [address] * CBC (03/28/2018 4:04 AM) Component Value Ref Range White Blood Cells 8.5 4.5 - 11.0 K/UL RBC 4.17 4.0 - 5.0 M/UL Hemoglobin 11.4 (L) 12.0 - 15.0 GM/DL Hematocrit 35.4 (L) 36 - 45 % MCV 84.9 80 - 100 FL MCH 27.4 26 - 34 PG MCHC 32.2 32.0 - 36.0 G/DL RDW 16.9 (H) 11 - 15 % Platelet Count 132 (L) 150 - 400 K/UL MPV 8.5 7 - 11 FL Specimen Performing Laboratory Blood MAIN LAB [address] [place] [address] * POC GLUCOSE (03/28/2018 3:59 AM) Component Value Ref Range Glucose, POC 75 70 - 100 MG/DL Specimen Performing Laboratory [facility] [address] [place] [address] * POC GLUCOSE (03/27/2018 8:34 PM) Component Value Ref Range Glucose, POC 262 (H) 70 - 100 MG/DL Specimen Performing Laboratory MAIN LAB [address] [place] [address] * MAGNESIUM (03/27/2018 6:15 PM) Component Value Ref Range Magnesium 2.0Comment: SLT HEMOLYSIS 1.6 - 2.6 mg/dL Specimen Performing Laboratory Blood MAIN [facility] [address] [place] [address] * BASIC METABOLIC PANEL (03/27/2018 6:15 PM) Component Value Ref Range Sodium 133 (L) 137 - 147 MMOL/L Potassium 3.8Comment: SLT HEMOLYSIS 3.5 - 5.1 MMOL/L Chloride 88 (L) 98 - 110 MMOL/L CO2 36 (H) 21 - 30 MMOL/L Anion Gap 9 3 - 12 Glucose 349 (H) 70 - 100 MG/DL Blood Urea Nitrogen 41 (H) 7 - 25 MG/DL Creatinine 1.23 (H) 0.4 - 1.00 MG/DL Calcium 9.5 8.5 - 10.6 MG/DL eGFR Non 44 (L) >60 mL/min Comment: The eGFR is not validated for use in drug dosing adjustments.Continue to use estimated creatinine clearance per dosing reference text.Please contact the Clinical Pharmacist for questions. eGFR 53 (L) >60 mL/min Comment: The eGFR is not validated for use in drug dosing adjustments.Continue to use estimated creatinine clearance per dosing reference text.Please contact the Clinical Pharmacist for questions. Specimen Performing Laboratory Blood MAIN [facility] [address] [place] [address] * POC GLUCOSE (03/27/2018 4:50 PM) Component Value Ref Range Glucose, POC 276 (H) 70 - 100 MG/DL Specimen Performing Laboratory MAIN [facility] [address] [place] [address] * POC GLUCOSE (03/27/2018 2:07 PM) Component Value Ref Range Glucose, POC 126 (H) 70 - 100 MG/DL Specimen Performing Laboratory MAIN LAB [address] [place] [address] * EP DEVICE (03/27/2018 1:15 PM) Component Value Ref Range Generator [employer] Device Type DDD-ICD Wireless Generator Yes Generator Location Left Generator MRI Conditional Yes Atrial Lead Front [employer] Atrial Lead Model # TENDRIL MRI [id number] 52cm Atrial Lead Serial # [id number] Atrial Lead Implant Date 03/27/2018 Atrial Lead Fixation active fixation Atrial Lead Polarity Bipolar Atrial Lead Pin Connector IS1 Atrial Lead MRI Yes Conditional RV Lead Front [employer] RV Lead Model # OPTISURE [id number] RV Lead Serial # [id number] RV Lead Implant Date 03/27/2018 RV Lead Fixation active fixation RV Lead Pin Connector PPM DF4 RV Lead Coil Single RV Lead JESUSITA Conditional Yes Generator Model # ALLYSSAIFY EL HERNÁNDEZ [id number] Generator Serial # [id number] Generator Implnat Date 03/27/2018 Remote Monitor Serial# [id number] Accssory Serial Number [id number] Device [employer] Igor On Demand Transmitter Compatible Device Mode [...] the skin was infiltrated with local anesthetic. [id number] ACCESS Ultrasound was utilized to confirm axillary [...] was monitored throughout the procedure by the skilled laborer staff and myself. The sedation duration was [...] - Incision Check in one week * POC GLUCOSE (03/27/2018 8:29 AM) Component Value Ref Range Glucose, POC 124 (H) 70 - 100 MG/DL Specimen Performing Laboratory MAIN LAB [address] [place] [address] * PROTIME INR (PT) (03/27/2018 5:15 AM) Component Value Ref Range INR 1.3 (H) 0.8 - 1.2 Specimen Performing Laboratory Blood MAIN LAB [address] [place], [place] [id number] * MAGNESIUM (03/27/2018 5:15 AM) Component Value Ref Range Magnesium 2.0 1.6 - 2.6 mg/dL Specimen Performing Laboratory Blood [facility]IN [facility] [address] [place], [place] [id number] * COMPREHENSIVE METABOLIC PANEL (03/27/2018 5:15 AM) Component Value Ref Range Sodium 137 137 [...] Pharmacist for questions. Specimen Performing Laboratory Blood [facility] [address] [place] [address] * CBC (03/27/2018 5:15 AM) Component Value Ref Range White Blood Cells 8.6 4.5 - 11.0 K/UL RBC 4.33 4.0 - 5.0 M/UL Hemoglobin 11.9 (L) 12.0 - 15.0 GM/DL Hematocrit 36.5 36 - 45 % MCV 84.3 80 - 100 FL MCH 27.6 26 - 34 PG MCHC 32.8 32.0 - 36.0 G/DL RDW 16.6 (H) 11 - 15 % Platelet Count 117 (L) 150 - 400 K/UL MPV 8.8 7 - 11 FL Specimen Performing Laboratory Blood [facility] [address] [place] [address] * POC GLUCOSE (03/27/2018 4:41 AM) Component Value Ref Range Glucose, POC 109 (H) 70 - 100 MG/DL Specimen Performing Laboratory [facility] [address] [place], [place] [id number] * POC GLUCOSE (03/26/2018 9:06 PM) Component Value Ref Range Glucose, POC 235 (H) 70 - 100 MG/DL Specimen Performing Laboratory [facility] [address] [place], [place] [phone] * POC GLUCOSE (03/26/2018 7:10 PM) Component Value Ref Range Glucose, POC 167 (H) 70 - 100 MG/DL Specimen Performing Laboratory [facility] [address] [place] [address] * MAGNESIUM (03/26/2018 5:00 PM) Component Value Ref Range Magnesium 2.1 1.6 - 2.6 mg/dL Specimen Performing Laboratory Blood [facility] [address] [place] [address] * COMPREHENSIVE METABOLIC PANEL (03/26/2018 5:00 PM) Component Value Ref Range Sodium 137 137 - 147 MMOL/L Potassium 4.5 3.5 - 5.1 MMOL/L Chloride 91 (L) 98 - 110 MMOL/L Glucose 144 (H) 70 - 100 MG/DL Blood Urea Nitrogen 41 (H) 7 - 25 MG/DL Creatinine 1.13 (H) 0.4 - 1.00 MG/DL Calcium 9.7 8.5 - 10.6 MG/DL Total Protein 6.5 6.0 - 8.0 G/DL Total Bilirubin 1.0 0.3 - 1.2 MG/DL Albumin 3.7 3.5 - 5.0 G/DL Alk Phosphatase 53 25 - 110 U/L AST (SGOT) 31 7 - 40 U/L CO2 42 (H) 21 - 30 MMOL/L ALT (SGPT) 41 7 - 56 U/L Anion Gap 4 3 - 12 eGFR Non 48 (L) >60 mL/min Comment: The eGFR is not validated for use in drug dosing adjustments.Continue to use estimated creatinine clearance per dosing reference text.Please contact the Clinical Pharmacist for questions. eGFR 58 (L) >60 mL/min Comment: The eGFR is not validated for use in drug dosing adjustments.Continue to use estimated creatinine clearance per dosing reference text.Please contact the Clinical Pharmacist for questions. Specimen Performing Laboratory [facility] [address] [place] [address] * POC GLUCOSE (03/26/2018 4:00 PM) Component Value Ref Range Glucose, POC 98 70 - 100 MG/DL Specimen Performing Laboratory MAIN LAB [address] [place] [address] * TRANSESOPHAGEAL ECHOCARDIOGRAM (03/26/2018 2:58 PM) Component Value Ref Range BSA 2.14 m2 CV ECHO PV PERSONNEL ANALYST TREVOR [employer] support specialist Ultrasound Siemens [id number] Machine ECHO EF 10 % Specimen Performing [...] and there were no apparent complications. * POC GLUCOSE (03/26/2018 10:35 AM) Component Value Ref Range Glucose, POC 131 (H) 70 - 100 MG/DL Specimen Performing Laboratory MAIN LAB [address] [place] [address] * NM PET HEART METABOLISM SARCOID (03/26/2018 [...] Vanessa D.O. on 03/26/2018 10:00 AM. * CBC (03/26/2018 4:30 AM) Component Value Ref Range White Blood Cells 9.4 4.5 - 11.0 K/UL RBC 4.69 4.0 - 5.0 M/UL Hemoglobin 12.8 12.0 - 15.0 GM/DL Hematocrit 40.5 36 - 45 % MCV 86.3 80 - 100 FL MCH 27.3 26 - 34 PG MCHC 31.7 (L) 32.0 - 36.0 G/DL RDW 16.8 (H) 11 - 15 % Platelet Count 108 (L) 150 - 400 K/UL MPV 9.6 7 - 11 FL Specimen Performing Laboratory Blood MAIN [facility] [address] [place] [address] * MAGNESIUM (03/26/2018 4:30 AM) Component Value Ref Range Magnesium 2.1 1.6 - 2.6 mg/dL Specimen Performing Laboratory Blood MAIN [facility] [address] [place] [address] * COMPREHENSIVE METABOLIC PANEL (03/26/2018 4:30 AM) Component Value Ref Range Sodium 139 137 - 147 MMOL/L Potassium 3.9 3.5 - 5.1 MMOL/L Chloride 90 (L) 98 - 110 MMOL/L Glucose 132 (H) 70 - 100 MG/DL Blood Urea Nitrogen 38 (H) 7 - 25 MG/DL Creatinine 0.98 0.4 - 1.00 MG/DL Calcium 10.0 8.5 - 10.6 MG/DL Total Protein 6.7 6.0 - 8.0 G/DL Total Bilirubin 0.9 0.3 - 1.2 MG/DL Albumin 3.6 3.5 - 5.0 G/DL Alk Phosphatase 52 25 - 110 U/L AST (SGOT) 20 7 - 40 U/L CO2 42 (H) 21 - 30 MMOL/L ALT (SGPT) 39 7 - 56 U/L Anion Gap 7 3 - 12 eGFR Non 57 (L) >60 mL/min Comment: The eGFR is [...] questions. Specimen Performing Laboratory Blood [facility] [address] [place] [address] * POC GLUCOSE (03/26/2018 4:00 AM) Component Value Ref Range Glucose, POC 146 (H) 70 - 100 MG/DL Specimen Performing Laboratory MAIN LAB [address] [place] [address] * POC GLUCOSE (03/25/2018 8:44 PM) Component Value Ref Range Glucose, POC 148 (H) 70 - 100 MG/DL Specimen Performing Laboratory MAIN [facility] [address] [place] [address] * POC GLUCOSE (03/25/2018 5:54 PM) Component Value Ref Range Glucose, POC 135 (H) 70 - 100 MG/DL Specimen Performing Laboratory MAIN [facility] [address] [place] [address] * MAGNESIUM (03/25/2018 4:40 PM) Component Value Ref Range Magnesium 2.2 1.6 - 2.6 mg/dL Specimen Performing Laboratory Blood [facility]IN [facility] [address] [place] [address] * COMPREHENSIVE METABOLIC PANEL (03/25/2018 4:40 PM) Component Value Ref Range Sodium 138 137 - 147 MMOL/L Potassium 4.1 3.5 - 5.1 MMOL/L Chloride 90 (L) 98 - 110 MMOL/L Glucose 168 (H) 70 - 100 MG/DL Blood Urea Nitrogen 39 (H) 7 - 25 MG/DL Creatinine 1.07 (H) 0.4 - 1.00 MG/DL Calcium 9.9 8.5 - 10.6 MG/DL Total Protein 6.6 6.0 - 8.0 G/DL Total Bilirubin 0.6 0.3 - 1.2 MG/DL Albumin 3.7 3.5 - 5.0 G/DL Alk Phosphatase 51 25 - 110 U/L AST (SGOT) 18 7 - 40 U/L CO2 44 (H) 21 - 30 MMOL/L ALT (SGPT) 43 7 - 56 U/L Anion Gap 4 3 - 12 eGFR Non 51 (L) >60 mL/min Comment: The eGFR is [...] Performing Laboratory [facility] [address] [place] [address] * CT CHEST WO CONTRAST (03/25/2018 3:46 [...] Villeda M.D. on 03/25/2018 4:01 PM. * POC GLUCOSE (03/25/2018 11:43 AM) Component Value Ref Range Glucose, POC 291 (H) 70 - 100 MG/DL Specimen Performing Laboratory [facility] [address] [place] [address] * POC GLUCOSE (03/25/2018 10:06 AM) Component Value Ref Range Glucose, POC 192 (H) 70 - 100 MG/DL Specimen Performing Laboratory MAIN LAB [address] [place] [address] * POC GLUCOSE (03/25/2018 9:15 AM) Component Value Ref Range Glucose, POC 190 (H) 70 - 100 MG/DL Specimen Performing Laboratory MAIN LAB [address] [place] [address] * POC GLUCOSE (03/25/2018 8:38 AM) Component Value Ref Range Glucose, POC 109 (H) 70 - 100 MG/DL Specimen Performing Laboratory [facility] [address] [place] [address] * POC GLUCOSE (03/25/2018 8:04 AM) Component Value Ref Range Glucose, POC 100 70 - 100 MG/DL Specimen Performing Laboratory [facility] [address] [place] [address] * POC GLUCOSE (03/25/2018 6:06 AM) Component Value Ref Range Glucose, POC 132 (H) 70 - 100 MG/DL Specimen Performing Laboratory [facility] [address] [place] [address] * POC GLUCOSE (03/25/2018 5:04 AM) Component Value Ref Range Glucose, POC 138 (H) 70 - 100 MG/DL Specimen Performing Laboratory [facility] [address] [place] [address] * POC GLUCOSE (03/25/2018 3:55 AM) Component Value Ref Range Glucose, POC 133 (H) 70 - 100 MG/DL Specimen Performing Laboratory [facility] [address] [place] [address] * POC GLUCOSE (03/25/2018 3:09 AM) Component Value Ref Range Glucose, POC 166 (H) 70 - 100 MG/DL Specimen Performing Laboratory [facility] [address] [place] [address] * POC GLUCOSE (03/25/2018 3:06 AM) Component Value Ref Range Glucose, POC 217 (H) 70 - 100 MG/DL Specimen Performing Laboratory [address] [address] * CBC (03/25/2018 2:55 AM) Component Value Ref Range White Blood Cells 9.8 4.5 - 11.0 K/UL RBC 4.25 4.0 - 5.0 M/UL Hemoglobin 11.7 (L) 12.0 - 15.0 GM/DL Hematocrit 36.8 36 - 45 % MCV 86.7 80 - 100 FL MCH 27.6 26 - 34 PG MCHC 31.8 (L) 32.0 - 36.0 G/DL RDW 17.3 (H) 11 - 15 % Platelet Count 81 (L) 150 - 400 K/UL MPV 9.3 7 - 11 FL Specimen Performing Laboratory Blood [facility] [address] [place] [address] * MAGNESIUM (03/25/2018 2:55 AM) Component Value Ref Range Magnesium 2.3 1.6 - 2.6 mg/dL Specimen Performing Laboratory Blood [facility] [address] [place] [address] * COMPREHENSIVE METABOLIC PANEL (03/25/2018 2:55 AM) Component Value Ref Range Sodium 139 137 - 147 MMOL/L Potassium 3.7 3.5 - 5.1 MMOL/L Chloride 90 (L) 98 - 110 MMOL/L Glucose 73 70 - 100 MG/DL Blood Urea Nitrogen 39 (H) 7 - 25 MG/DL Creatinine 0.90 0.4 - 1.00 MG/DL Calcium 9.8 8.5 - 10.6 MG/DL Total Protein 6.2 6.0 - 8.0 G/DL Total Bilirubin 0.5 0.3 - 1.2 MG/DL Albumin 3.5 3.5 - 5.0 G/DL Alk Phosphatase 45 25 - 110 U/L AST (SGOT) 19 7 - 40 U/L CO2 44 (H) 21 - 30 MMOL/L ALT (SGPT) 48 7 - 56 U/L Anion Gap 5 3 - 12 eGFR Non >60 >60 mL/min Comment: The eGFR is [...] questions. Specimen Performing Laboratory Blood MAIN [facility] [address] [place] [address] * POC GLUCOSE (03/25/2018 2:50 AM) Component Value Ref Range Glucose, POC 71 70 - 100 MG/DL Specimen Performing Laboratory MAIN LAB [address] [place] [address] * POC GLUCOSE (03/25/2018 12:49 AM) Component Value Ref Range Glucose, POC 129 (H) 70 - 100 MG/DL Specimen Performing Laboratory MAIN LAB [address] [place] [address] * POC GLUCOSE (03/25/2018 12:15 AM) Component Value Ref Range Glucose, POC 136 (H) 70 - 100 MG/DL Specimen Performing Laboratory MAIN LAB [address] [place] [address] * POC GLUCOSE (03/24/2018 11:01 PM) Component Value Ref Range Glucose, POC 144 (H) 70 - 100 MG/DL Specimen Performing Laboratory MAIN LAB [address] [place] [address] * POC GLUCOSE (03/24/2018 10:03 PM) Component Value Ref Range Glucose, POC 164 (H) 70 - 100 MG/DL Specimen Performing Laboratory MAIN LAB [address] [place] [address] * BASIC METABOLIC PANEL (03/24/2018 9:11 PM) Component Value Ref Range Sodium 135 (L) 137 - 147 MMOL/L Potassium 3.8 3.5 - 5.1 MMOL/L Chloride 90 (L) 98 - 110 MMOL/L CO2 40 (H) 21 - 30 MMOL/L Anion Gap 5 3 - 12 Glucose 246 (H) 70 - 100 MG/DL Blood Urea Nitrogen 40 (H) 7 - 25 MG/DL Creatinine 0.98 0.4 - 1.00 MG/DL Calcium 9.4 8.5 - 10.6 MG/DL eGFR Non 57 (L) >60 mL/min Comment: The eGFR is [...] Pharmacist for questions. Specimen Performing Laboratory Blood [facility] [address] [place] [address] * POC GLUCOSE (03/24/2018 9:10 PM) Component Value Ref Range Glucose, POC 214 (H) 70 - 100 MG/DL Specimen Performing Laboratory [facility] [address] [place] [address] * POC GLUCOSE (03/24/2018 7:59 PM) Component Value Ref Range Glucose, POC 253 (H) 70 - 100 MG/DL Specimen Performing Laboratory MAIN LAB [address] [place] [address] * POC GLUCOSE (03/24/2018 6:56 PM) Component Value Ref Range Glucose, POC 151 (H) 70 - 100 MG/DL Specimen Performing Laboratory [facility] [address] [place] [address] * POC GLUCOSE (03/24/2018 6:06 PM) Component Value Ref Range Glucose, POC 164 (H) 70 - 100 MG/DL Specimen Performing Laboratory MAIN LAB [address] [place] [address] * POC GLUCOSE (03/24/2018 5:10 PM) Component Value Ref Range Glucose, POC 184 (H) 70 - 100 MG/DL Specimen Performing Laboratory MAIN LAB [address] [place] [address] * POC GLUCOSE (03/24/2018 3:48 PM) Component Value Ref Range Glucose, POC 192 (H) 70 - 100 MG/DL Specimen Performing Laboratory MAIN LAB [address] [place] [address] * MAGNESIUM (03/24/2018 3:45 PM) Component Value Ref Range Magnesium 2.1 1.6 - 2.6 mg/dL Specimen Performing Laboratory Blood [facility] [address] [place] [address] * COMPREHENSIVE METABOLIC PANEL (03/24/2018 3:45 PM) Component Value Ref Range Sodium 137 137 - 147 MMOL/L Potassium 3.9 3.5 - 5.1 MMOL/L Chloride 90 (L) 98 - 110 MMOL/L Glucose 210 (H) 70 - 100 MG/DL Blood Urea Nitrogen 40 (H) 7 - 25 MG/DL Creatinine 0.93 0.4 - 1.00 MG/DL Calcium 9.3 8.5 - 10.6 MG/DL Total Protein 6.1 6.0 - 8.0 G/DL Total Bilirubin 0.5 0.3 - 1.2 MG/DL Albumin 3.4 (L) 3.5 - 5.0 G/DL Alk Phosphatase 44 25 - 110 U/L AST (SGOT) 19 7 - 40 U/L CO2 42 (H) 21 - 30 MMOL/L ALT (SGPT) 53 7 - 56 U/L Anion Gap 5 3 - 12 eGFR Non >60 >60 mL/min Comment: The eGFR is [...] questions. Specimen Performing Laboratory Blood [facility]IN [facility] [address] [place] [address] * POC GLUCOSE (03/24/2018 2:06 PM) Component Value Ref Range Glucose, POC 143 (H) 70 - 100 MG/DL Specimen Performing Laboratory [facility] [address] [place] [address] * POC GLUCOSE (03/24/2018 12:11 PM) Component Value Ref Range Glucose, POC 159 (H) 70 - 100 MG/DL Specimen Performing Laboratory [facility] [address] [place] [address] * POC GLUCOSE (03/24/2018 10:56 AM) Component Value Ref Range Glucose, POC 145 (H) 70 - 100 MG/DL Specimen Performing Laboratory [facility] [address] [place] [address] * POC GLUCOSE (03/24/2018 9:56 AM) Component Value Ref Range Glucose, POC 158 (H) 70 - 100 MG/DL Specimen Performing Laboratory [facility] [address] [place] [address] * POC GLUCOSE (03/24/2018 9:17 AM) Component Value Ref Range Glucose, POC 167 (H) 70 - 100 MG/DL Specimen Performing Laboratory [facility] [address] [place] [address] * POC GLUCOSE (03/24/2018 8:00 AM) Component Value Ref Range Glucose, POC 157 (H) 70 - 100 MG/DL Specimen Performing Laboratory [facility] [address] [place] [address] * POC GLUCOSE (03/24/2018 6:47 AM) Component Value Ref Range Glucose, POC 160 (H) 70 - 100 MG/DL Specimen Performing Laboratory [address] [address] * POC GLUCOSE (03/24/2018 5:48 AM) Component Value Ref Range Glucose, POC 151 (H) 70 - 100 MG/DL Specimen Performing Laboratory [facility] [address] [place] [address] * POC GLUCOSE (03/24/2018 4:59 AM) Component Value Ref Range Glucose, POC 148 (H) 70 - 100 MG/DL Specimen Performing Laboratory [facility] [address] [place] [address] * POC GLUCOSE (03/24/2018 4:00 AM) Component Value Ref Range Glucose, POC 163 (H) 70 - 100 MG/DL Specimen Performing Laboratory [facility] [address] [place] [address] * CBC (03/24/2018 4:00 AM) Component Value Ref Range White Blood Cells 8.3 4.5 - 11.0 K/UL RBC 4.14 4.0 - 5.0 M/UL Hemoglobin 11.8 (L) 12.0 - 15.0 GM/DL Hematocrit 35.2 (L) 36 - 45 % MCV 85.2 80 - 100 FL MCH 28.4 26 - 34 PG MCHC 33.4 32.0 - 36.0 G/DL RDW 17.4 (H) 11 - 15 % Platelet Count 71 (L) 150 - 400 K/UL MPV 9.0 7 - 11 FL Specimen Performing Laboratory Blood MAIN [facility] [address] [place] [address] * MAGNESIUM (03/24/2018 4:00 AM) Component Value Ref Range Magnesium 1.8 1.6 - 2.6 mg/dL Specimen Performing Laboratory Blood MAIN [facility] [address] [place] [address] * COMPREHENSIVE METABOLIC PANEL (03/24/2018 4:00 AM) Component Value Ref Range Sodium 136 (L) 137 - 147 MMOL/L Potassium 4.0 3.5 - 5.1 MMOL/L Chloride 92 (L) 98 - 110 MMOL/L Glucose 189 (H) 70 - 100 MG/DL Blood Urea Nitrogen 42 (H) 7 - 25 MG/DL Creatinine 0.92 0.4 - 1.00 MG/DL Calcium 9.0 8.5 - 10.6 MG/DL Total Protein 5.8 (L) 6.0 - 8.0 G/DL Total Bilirubin 0.5 0.3 - 1.2 MG/DL Albumin 3.3 (L) 3.5 - 5.0 G/DL Alk Phosphatase 44 25 - 110 U/L AST (SGOT) 22 7 - 40 U/L CO2 39 (H) 21 - 30 MMOL/L ALT (SGPT) 60 (H) 7 - 56 U/L Anion Gap 5 3 - 12 eGFR Non >60 >60 mL/min Comment: The eGFR is [...] Performing Laboratory [facility] [address] [facility] [place] [address] * POC GLUCOSE (03/24/2018 1:41 AM) Component Value Ref Range Glucose, POC 135 (H) 70 - 100 MG/DL Specimen Performing Laboratory [facility] [address] [place] [address] * POC GLUCOSE (03/23/2018 11:42 PM) Component Value Ref Range Glucose, POC 154 (H) 70 - 100 MG/DL Specimen Performing Laboratory [facility] [address] [place] [address] * POC GLUCOSE (03/23/2018 10:00 PM) Component Value Ref Range Glucose, POC 149 (H) 70 - 100 MG/DL Specimen Performing Laboratory [facility] [address] [place] [phone] * POC GLUCOSE (03/23/2018 7:58 PM) Component Value Ref Range Glucose, POC 132 (H) 70 - 100 MG/DL Specimen Performing Laboratory [facility] [address] [place] [address] 55232 * POC GLUCOSE (03/23/2018 5:57 PM) Component Value Ref Range Glucose, POC 141 (H) 70 - 100 MG/DL Specimen Performing Laboratory [facility] [address] [place] [address] 97351 * POC GLUCOSE (03/23/2018 5:02 PM) Component Value Ref Range Glucose, POC 155 (H) 70 - 100 MG/DL Specimen Performing Laboratory [facility] [address] [place] [address] 82999 * MAGNESIUM (03/23/2018 4:12 PM) Component Value Ref Range Magnesium 2.0 1.6 - 2.6 mg/dL Specimen Performing Laboratory Blood [facility] [address] [place] [address] 02949 * COMPREHENSIVE METABOLIC PANEL (03/23/2018 4:12 PM) Component Value Ref Range Sodium 134 (L) 137 - 147 MMOL/L Potassium 4.1 3.5 - 5.1 MMOL/L Chloride 93 (L) 98 - 110 MMOL/L Glucose 172 (H) 70 - 100 MG/DL Blood Urea Nitrogen 44 (H) 7 - 25 MG/DL Creatinine 1.08 (H) 0.4 - 1.00 MG/DL Calcium 8.7 8.5 - 10.6 MG/DL Total Protein 5.7 (L) 6.0 - 8.0 G/DL Total Bilirubin 0.4 0.3 - 1.2 MG/DL Albumin 3.3 (L) 3.5 - 5.0 G/DL Alk Phosphatase 41 25 - 110 U/L AST (SGOT) 21 7 - 40 U/L CO2 35 (H) 21 - 30 MMOL/L ALT (SGPT) 66 (H) 7 - 56 U/L Anion Gap 6 3 - 12 eGFR Non 51 (L) >60 mL/min Comment: The eGFR is [...] Pharmacist for questions. Specimen Performing Laboratory Blood [facility] [address] [place] [address] * POC GLUCOSE (03/23/2018 4:09 PM) Component Value Ref Range Glucose, POC 155 (H) 70 - 100 MG/DL Specimen Performing Laboratory [facility] [address] [place] [address] * POC GLUCOSE (03/23/2018 3:12 PM) Component Value Ref Range Glucose, POC 148 (H) 70 - 100 MG/DL Specimen Performing Laboratory [facility] [address] [place], [place] [id number] * POC GLUCOSE (03/23/2018 2:03 PM) Component Value Ref Range Glucose, POC 176 (H) 70 - 100 MG/DL Specimen Performing Laboratory [facility] [address] [place], [place] [id number] * POC GLUCOSE (03/23/2018 12:16 PM) Component Value Ref Range Glucose, POC 146 (H) 70 - 100 MG/DL Specimen Performing Laboratory [facility] [address] [place] [address] * HEPARIN INDUCED PLT AB (HIT) (03/23/2018 11:20 AM) Component Value Ref Range Heparin Induced Plt AB NEGATIVEComment: TEST PERFORMED BY [facility] Heparin AB OD 0.030 0.000 - 0.499 Specimen Performing Laboratory Blood [facility] [address] [place] [address] * POC GLUCOSE (03/23/2018 10:52 AM) Component Value Ref Range Glucose, POC 199 (H) 70 - 100 MG/DL Specimen Performing Laboratory [facility] [address] [place] [address] 93538 * POC GLUCOSE (03/23/2018 10:01 AM) Component Value Ref Range Glucose, POC 203 (H) 70 - 100 MG/DL Specimen Performing Laboratory [facility] [address] [place] [address] 87133 * POC GLUCOSE (03/23/2018 8:19 AM) Component Value Ref Range Glucose, POC 165 (H) 70 - 100 MG/DL Specimen Performing Laboratory [facility] [address] [place] [address] 61203 * POC GLUCOSE (03/23/2018 6:57 AM) Component Value Ref Range Glucose, POC 179 (H) 70 - 100 MG/DL Specimen Performing Laboratory [facility] [address] [place] [address] 14558 * POC GLUCOSE (03/23/2018 6:00 AM) Component Value Ref Range Glucose, POC 187 (H) 70 - 100 MG/DL Specimen Performing Laboratory [facility] [address] [place] [address] 97299 * PTT (APTT) (03/23/2018 5:05 AM) Component Value Ref Range APTT 101.5 (H) 21.0 - 39.0 SEC Specimen Performing Laboratory Blood [facility] [address] [place] [address] 55003 * POC GLUCOSE (03/23/2018 5:04 AM) Component Value Ref Range Glucose, POC 196 (H) 70 - 100 MG/DL Specimen Performing Laboratory [facility] [address] [place] [address] 52007 * CHEST SINGLE VIEW (03/23/2018 4:57 AM) Specimen Performing Laboratory [facility] RAD RESULTS [...] Tolentino M.D. on 03/23/2018 7:56 AM. * MAGNESIUM (03/23/2018 4:02 AM) Component Value Ref Range Magnesium 1.9 1.6 - 2.6 mg/dL Specimen Performing Laboratory Blood [facility] [address] [place] [address] * COMPREHENSIVE METABOLIC PANEL (03/23/2018 4:02 AM) Component Value Ref Range Sodium 131 (L) 137 - 147 MMOL/L Potassium 4.1 3.5 - 5.1 MMOL/L Chloride 94 (L) 98 - 110 MMOL/L Glucose 244 (H) 70 - 100 MG/DL Blood Urea Nitrogen 50 (H) 7 - 25 MG/DL Creatinine 1.28 (H) 0.4 - 1.00 MG/DL Calcium 8.5 8.5 - 10.6 MG/DL Total Protein 5.6 (L) 6.0 - 8.0 G/DL Total Bilirubin 0.4 0.3 - 1.2 MG/DL Albumin 3.3 (L) 3.5 - 5.0 G/DL Alk Phosphatase 43 25 - 110 U/L AST (SGOT) 25 7 - 40 U/L CO2 29 21 - 30 MMOL/L ALT (SGPT) 77 (H) 7 - 56 U/L Anion Gap 8 3 - 12 eGFR Non 42 (L) >60 mL/min Comment: The eGFR is not validated for use in drug dosing adjustments.Continue to use estimated creatinine clearance per dosing reference text.Please contact the Clinical Pharmacist for questions. eGFR 50 (L) >60 mL/min Comment: The eGFR is not validated for use in drug dosing adjustments.Continue to use estimated creatinine clearance per dosing reference text.Please contact the Clinical Pharmacist for questions. Specimen Performing Laboratory Blood [facility] [address] [place] [address] * CBC (03/23/2018 4:02 AM) Component Value Ref Range White Blood Cells 6.7 4.5 - 11.0 K/UL RBC 4.00 4.0 - 5.0 M/UL Hemoglobin 11.5 (L) 12.0 - 15.0 GM/DL Hematocrit 34.4 (L) 36 - 45 % MCV 86.0 80 - 100 FL MCH 28.7 26 - 34 PG MCHC 33.3 32.0 - 36.0 G/DL RDW 17.2 (H) 11 - 15 % Platelet Count 72 (L) 150 - 400 K/UL MPV 9.6 7 - 11 FL Specimen Performing Laboratory Blood [facility] [address] [place], [place] [id number] * POC GLUCOSE (03/23/2018 4:01 AM) Component Value Ref Range Glucose, POC 222 (H) 70 - 100 MG/DL Specimen Performing Laboratory [facility] [address] [place] [address] 73482 * POC GLUCOSE (03/23/2018 3:01 AM) Component Value Ref Range Glucose, POC 196 (H) 70 - 100 MG/DL Specimen Performing Laboratory [facility] [address] [place] [address] 15432 * POC GLUCOSE (03/23/2018 2:03 AM) Component Value Ref Range Glucose, POC 187 (H) 70 - 100 MG/DL Specimen Performing Laboratory [facility] [address] [place] [address] 23914 * POC GLUCOSE (03/23/2018 1:01 AM) Component Value Ref Range Glucose, POC 154 (H) 70 - 100 MG/DL Specimen Performing Laboratory [facility] [address] [place] [address] 81497 * POC GLUCOSE (03/23/2018 12:10 AM) Component Value Ref Range Glucose, POC 175 (H) 70 - 100 MG/DL Specimen Performing Laboratory [facility] [address] [place] [address] 26365 * POC GLUCOSE (03/22/2018 11:06 PM) Component Value Ref Range Glucose, POC 178 (H) 70 - 100 MG/DL Specimen Performing Laboratory [facility] [address] [place] [address] 21133 * PTT (APTT) (03/22/2018 11:05 PM) Component Value Ref Range APTT 78.4 (H) 21.0 - 39.0 SEC Specimen Performing Laboratory Blood [facility] [address] [place] [address] 97013 * POC GLUCOSE (03/22/2018 9:20 PM) Component Value Ref Range Glucose, POC 154 (H) 70 - 100 MG/DL Specimen Performing Laboratory [facility] [address] [place] [address] 77161 * VANCOMYCIN TROUGH (03/22/2018 9:20 PM) Component Value Ref Range Vancomycin Trough 20.1 (H) 10.0 - 20.0 MCG/ML Specimen Performing Laboratory Blood, venous - Blood [facility] [address] [place] [address] 29074 * POC GLUCOSE (03/22/2018 6:46 PM) Component Value Ref Range Glucose, POC 122 (H) 70 - 100 MG/DL Specimen Performing Laboratory [facility] [address] [place] [address] 12741 * POC GLUCOSE (03/22/2018 5:06 PM) Component Value Ref Range Glucose, POC 132 (H) 70 - 100 MG/DL Specimen Performing Laboratory [facility] [address] [place] [address] 04006 * POC GLUCOSE (03/22/2018 4:13 PM) Component Value Ref Range Glucose, POC 144 (H) 70 - 100 MG/DL Specimen Performing Laboratory [facility] [address] [place] [address] 85622 * PTT (APTT) (03/22/2018 4:10 PM) Component Value Ref Range APTT 31.9 21.0 - 39.0 SEC Specimen Performing Laboratory Blood [facility] [address] [place] [address] 66989 * MAGNESIUM (03/22/2018 4:10 PM) Component Value Ref Range Magnesium 2.2 1.6 - 2.6 mg/dL Specimen Performing Laboratory Blood [facility] [address] [place] [address] 20480 * COMPREHENSIVE METABOLIC PANEL (03/22/2018 4:10 PM) Component Value Ref Range Sodium 131 (L) 137 - 147 MMOL/L Potassium 4.6 3.5 - 5.1 MMOL/L Chloride 95 (L) 98 - 110 MMOL/L Glucose 155 (H) 70 - 100 MG/DL Blood Urea Nitrogen 55 (H) 7 - 25 MG/DL Creatinine 1.50 (H) 0.4 - 1.00 MG/DL Calcium 8.7 8.5 - 10.6 MG/DL Total Protein 5.8 (L) 6.0 - 8.0 G/DL Total Bilirubin 0.4 0.3 - 1.2 MG/DL Albumin 3.4 (L) 3.5 - 5.0 G/DL Alk Phosphatase 42 25 - 110 U/L AST (SGOT) 30 7 - 40 U/L CO2 28 21 - 30 MMOL/L ALT (SGPT) 102 (H) 7 - 56 U/L Anion Gap 8 3 - 12 eGFR Non 35 (L) >60 mL/min Comment: The eGFR is not validated for use in drug dosing adjustments.Continue to use estimated creatinine clearance per dosing reference text.Please contact the Clinical Pharmacist for questions. eGFR 42 (L) >60 mL/min Comment: The eGFR is not validated for use in drug dosing adjustments.Continue to use estimated creatinine clearance per dosing reference text.Please contact the Clinical Pharmacist for questions. Specimen Performing Laboratory Blood [facility] [address] [place] [address] 58750 * POC GLUCOSE (03/22/2018 3:03 PM) Component Value Ref Range Glucose, POC 124 (H) 70 - 100 MG/DL Specimen Performing Laboratory [facility] [address] [place] [address] 63965 * POC GLUCOSE (03/22/2018 2:06 PM) Component Value Ref Range Glucose, POC 103 (H) 70 - 100 MG/DL Specimen Performing Laboratory [facility] [address] [place] [address] 88814 * POC ACTIVATED CLOTTING TIME (03/22/2018 1:59 PM) Component Value Ref Range Activated Clotting Time 213 s Specimen Performing Laboratory [facility] [address] [place] [address] 99833 * POC GLUCOSE (03/22/2018 1:06 PM) Component Value Ref Range Glucose, POC 115 (H) 70 - 100 MG/DL Specimen Performing Laboratory [facility] [address] [place] [address] 29106 * POC GLUCOSE (03/22/2018 12:01 PM) Component Value Ref Range Glucose, POC 107 (H) 70 - 100 MG/DL Specimen Performing Laboratory [facility] [address] [place] [address] 88648 * POC GLUCOSE (03/22/2018 10:58 AM) Component Value Ref Range Glucose, POC 106 (H) 70 - 100 MG/DL Specimen Performing Laboratory [facility] [address] [place] [address] 43976 * MAGNESIUM (03/22/2018 10:54 AM) Component Value Ref Range Magnesium 2.6 1.6 - 2.6 mg/dL Specimen Performing Laboratory Blood [facility] [address] [place] [address] 90162 * BASIC METABOLIC PANEL (03/22/2018 10:54 AM) Component Value Ref Range Sodium 130 (L) 137 - 147 MMOL/L Potassium 4.6 3.5 - 5.1 MMOL/L Chloride 94 (L) 98 - 110 MMOL/L CO2 27 21 - 30 MMOL/L Anion Gap 9 3 - 12 Glucose 131 (H) 70 - 100 MG/DL Blood Urea Nitrogen 51 (H) 7 - 25 MG/DL Creatinine 1.54 (H) 0.4 - 1.00 MG/DL Calcium 8.6 8.5 - 10.6 MG/DL eGFR Non 34 (L) >60 mL/min Comment: The eGFR is not validated for use in drug dosing adjustments.Continue to use estimated creatinine clearance per dosing reference text.Please contact the Clinical Pharmacist for questions. eGFR 41 (L) >60 mL/min Comment: The eGFR is not validated for use in drug dosing adjustments.Continue to use estimated creatinine clearance per dosing reference text.Please contact the Clinical Pharmacist for questions. Specimen Performing Laboratory Blood [facility] [address] [place] [address] 52310 * PTT (APTT) (03/22/2018 10:54 AM) Component Value Ref Range APTT 139.7 (HH) 21.0 - 39.0 SEC Comment: Critical Result APTT:Called to VON Douglass at: 11:59:41 by: BLAYNE Read back by: VON Douglass Specimen Performing Laboratory Blood [facility] [address] [place] [address] * BLOOD GASES, ARTERIAL (03/22/2018 9:40 AM) Component Value Ref Range pH-Arterial 7.34 (L) 7.35 - 7.45 pCO2-Arterial 53 (H) 35 - 45 MMHG pO2-Arterial 104 (H) 80 - 100 MMHG Base Excess-Arterial 1.8 MMOL/L O2 Sat-Arterial 97.5 95 - 99 % Beqytjfjrtl-RZQ-Eps 26.0 21 - 28 MMOL/L Specimen Performing Laboratory Blood, arterial - Blood [facility] [address] [place] [address] * POC GLUCOSE (03/22/2018 9:06 AM) Component Value Ref Range Glucose, POC 122 (H) 70 - 100 MG/DL Specimen Performing Laboratory [facility] [address] [place] [address] * POC GLUCOSE (03/22/2018 7:49 AM) Component Value Ref Range Glucose, POC 125 (H) 70 - 100 MG/DL Specimen Performing Laboratory [facility] [address] [place] [address] * POC GLUCOSE (03/22/2018 6:54 AM) Component Value Ref Range Glucose, POC 122 (H) 70 - 100 MG/DL Specimen Performing Laboratory [facility] [address] [place] [address] * POC GLUCOSE (03/22/2018 6:00 AM) Component Value Ref Range Glucose, POC 149 (H) 70 - 100 MG/DL Specimen Performing Laboratory [facility] [address] [place] [address] * BLOOD GASES, ARTERIAL (03/22/2018 5:00 AM) Component Value Ref Range pH-Arterial 7.39 7.35 - 7.45 pCO2-Arterial 47 (H) 35 - 45 MMHG pO2-Arterial 89 80 - 100 MMHG Base Excess-Arterial 2.4 MMOL/L O2 Sat-Arterial 97.0 95 - 99 % Eezzcmitapf-OEN-Vpy 26.5 21 - 28 MMOL/L Specimen Performing Laboratory Blood, arterial - Blood [facility] [address] [place] [address] * O2 SATURATION, MIXED VENOUS (03/22/2018 5:00 AM) Component Value Ref Range F6Oqq-Cxnjf Venous 79.2 % Specimen Performing Laboratory Blood [facility] [address] [place] [address] * MAGNESIUM (03/22/2018 5:00 AM) Component Value Ref Range Magnesium 1.9 1.6 - 2.6 mg/dL Specimen Performing Laboratory Blood [facility] [address] [place] [address] * COMPREHENSIVE METABOLIC PANEL (03/22/2018 5:00 AM) Component Value Ref Range Sodium 128 (L) 137 - 147 MMOL/L Potassium 4.3 3.5 - 5.1 MMOL/L Chloride 94 (L) 98 - 110 MMOL/L Glucose 155 (H) 70 - 100 MG/DL Blood Urea Nitrogen 51 (H) 7 - 25 MG/DL Creatinine 1.49 (H) 0.4 - 1.00 MG/DL Calcium 8.7 8.5 - 10.6 MG/DL Total Protein 5.3 (L) 6.0 - 8.0 G/DL Total Bilirubin 0.4 0.3 - 1.2 MG/DL Albumin 3.2 (L) 3.5 - 5.0 G/DL Alk Phosphatase 38 25 - 110 U/L AST (SGOT) 37 7 - 40 U/L CO2 26 21 - 30 MMOL/L ALT (SGPT) 111 (H) 7 - 56 U/L Anion Gap 8 3 - 12 eGFR Non 35 (L) >60 mL/min Comment: The eGFR is not validated for use in drug dosing adjustments.Continue to use estimated creatinine clearance per dosing reference text.Please contact the Clinical Pharmacist for questions. eGFR 42 (L) >60 mL/min Comment: The eGFR is not validated for use in drug dosing adjustments.Continue to use estimated creatinine clearance per dosing reference text.Please contact the Clinical Pharmacist for questions. Specimen Performing Laboratory Blood [facility] [address] [place] [address] * CBC (03/22/2018 5:00 AM) Component Value Ref Range White Blood Cells 11.3 (H) 4.5 - 11.0 K/UL RBC 4.07 4.0 - 5.0 M/UL Hemoglobin 11.4 (L) 12.0 - 15.0 GM/DL Hematocrit 34.8 (L) 36 - 45 % MCV 85.4 80 - 100 FL MCH 28.0 26 - 34 PG MCHC 32.8 32.0 - 36.0 G/DL RDW 17.3 (H) 11 - 15 % Platelet Count 90 (L) 150 - 400 K/UL MPV 9.5 7 - 11 FL Specimen Performing Laboratory Blood [facility] [address] [place] [address] * POC GLUCOSE (03/22/2018 4:57 AM) Component Value Ref Range Glucose, POC 148 (H) 70 - 100 MG/DL Specimen Performing Laboratory [facility] [address] [place] [address] * POC GLUCOSE (03/22/2018 4:12 AM) Component Value Ref Range Glucose, POC 147 (H) 70 - 100 MG/DL Specimen Performing Laboratory [facility] [address] [place] [address] * CHEST SINGLE VIEW (03/22/2018 3:57 AM) Specimen Performing Laboratory [facility] RAD RESULTS Impressions Stable cardiomegaly with mild pulmonary vascular congestion, small left pleural effusion and bilateral perihilar and bibasilar atelectasis. Approved by Gen Casey M.D. on 03/22/2018 11:28 AM By my electronic signature, I attest that I have personally reviewed the images for this examination and formulated the interpretations and opinions expressed in this report Finalized by Yoshi Villeda M.D. on 03/22/2018 12:06 PM. Dictated by Gen Casey M.D. on 03/22/2018 10:18 AM. Narrative Procedure: CHEST SINGLE VIEW Clinical Indication: Intra-aortic balloon pump, PA catheter. Comparison: Chest x-ray 03/21/2018 FINDINGS: IABP is no longer in place. Slight retraction of the pulmonary arterial catheter with the tip projected over the midline main pulmonary artery. The endotracheal tube, nasoenteric tube and left IJ CVC remain in stable position. Cardiomegaly with stable mild pulmonary vascular congestion. Stable small left pleural effusion with persistent bibasilar and perihilar opacities. Prior left shoulder arthroplasty. Procedure Note Interface, Radiant Results - 03/22/2018 12:09 PM CDT Procedure: CHEST SINGLE VIEW Clinical Indication: Intra-aortic balloon pump, PA catheter. Comparison: Chest x-ray 03/21/2018 FINDINGS: IABP is no longer in place. Slight retraction of the pulmonary arterial catheter with the tip projected over the midline main pulmonary artery. The endotracheal tube, nasoenteric tube and left IJ CVC remain in stable position. Cardiomegaly with stable mild pulmonary vascular congestion. Stable small left pleural effusion with persistent bibasilar and perihilar opacities. Prior left shoulder arthroplasty. IMPRESSION Stable cardiomegaly with mild pulmonary vascular congestion, small left pleural effusion and bilateral perihilar and bibasilar atelectasis. Approved by Gen Casey M.D. on 03/22/2018 11:28 AM By my electronic signature, I attest that I have personally reviewed the images for this examination and formulated the interpretations and opinions expressed in this report Finalized by Yoshi Villeda M.D. on 03/22/2018 12:06 PM. Dictated by Gen Casey M.D. on 03/22/2018 10:18 AM. * PTT (APTT) (03/22/2018 3:00 AM) Component Value Ref Range APTT 129.6 (H) 21.0 - 39.0 SEC Specimen Performing Laboratory Blood [facility] [address] [place] [address] * POC GLUCOSE (03/22/2018 2:59 AM) Component Value Ref Range Glucose, POC 178 (H) 70 - 100 MG/DL Specimen Performing Laboratory [facility] [address] [place], [place] [id number] * POC GLUCOSE (03/22/2018 1:54 AM) Component Value Ref Range Glucose, POC 169 (H) 70 - 100 MG/DL Specimen Performing Laboratory [facility] [address] [place] [address] 05245 * POC GLUCOSE (03/21/2018 11:59 PM) Component Value Ref Range Glucose, POC 152 (H) 70 - 100 MG/DL Specimen Performing Laboratory [facility] [address] [place] [address] 05196 * BLOOD GASES, ARTERIAL (03/21/2018 10:00 PM) Component Value Ref Range pH-Arterial 7.42 7.35 - 7.45 pCO2-Arterial 41 35 - 45 MMHG pO2-Arterial 85 80 - 100 MMHG Base Excess-Arterial 1.5 MMOL/L O2 Sat-Arterial 97.2 95 - 99 % Hymxroyfgky-XYL-Eok 25.7 21 - 28 MMOL/L Specimen Performing Laboratory Blood, arterial - Blood [facility] [address] [place] [address] 95713 * POC GLUCOSE (03/21/2018 9:58 PM) Component Value Ref Range Glucose, POC 143 (H) 70 - 100 MG/DL Specimen Performing Laboratory [facility] [address] [place] [address] 40097 * POC GLUCOSE (03/21/2018 9:06 PM) Component Value Ref Range Glucose, POC 122 (H) 70 - 100 MG/DL Specimen Performing Laboratory [facility] [address] [place] [address] 71550 * POC GLUCOSE (03/21/2018 8:02 PM) Component Value Ref Range Glucose, POC 131 (H) 70 - 100 MG/DL Specimen Performing Laboratory [facility] [address] [place] [address] 41220 * MAGNESIUM (03/21/2018 8:01 PM) Component Value Ref Range Magnesium 2.1 1.6 - 2.6 mg/dL Specimen Performing Laboratory Blood [facility] [address] [place] [address] 78984 * COMPREHENSIVE METABOLIC PANEL (03/21/2018 8:01 PM) Component Value Ref Range Sodium 129 (L) 137 - 147 MMOL/L Potassium 4.2 3.5 - 5.1 MMOL/L Chloride 94 (L) 98 - 110 MMOL/L Glucose 139 (H) 70 - 100 MG/DL Blood Urea Nitrogen 49 (H) 7 - 25 MG/DL Creatinine 1.66 (H) 0.4 - 1.00 MG/DL Calcium 8.8 8.5 - 10.6 MG/DL Total Protein 5.4 (L) 6.0 - 8.0 G/DL Total Bilirubin 0.5 0.3 - 1.2 MG/DL Albumin 3.2 (L) 3.5 - 5.0 G/DL Alk Phosphatase 39 25 - 110 U/L AST (SGOT) 43 (H) 7 - 40 U/L CO2 23 21 - 30 MMOL/L ALT (SGPT) 130 (H) 7 - 56 U/L Anion Gap 12 3 - 12 eGFR Non 31 (L) >60 mL/min Comment: The eGFR is not validated for use in drug dosing adjustments.Continue to use estimated creatinine clearance per dosing reference text.Please contact the Clinical Pharmacist for questions. eGFR 37 (L) >60 mL/min Comment: The eGFR is not validated for use in drug dosing adjustments.Continue to use estimated creatinine clearance per dosing reference text.Please contact the Clinical Pharmacist for questions. Specimen Performing Laboratory Blood [facility] [address] [place] [address] * US ABDOMEN COMPLETE (03/21/2018 7:00 PM) [...] Polk D.O. on 03/22/2018 8:14 AM. * POC GLUCOSE (03/21/2018 6:51 PM) Component Value Ref Range Glucose, POC 143 (H) 70 - 100 MG/DL Specimen Performing Laboratory [facility] [address] [place] [address] * POC GLUCOSE (03/21/2018 6:00 PM) Component Value Ref Range Glucose, POC 94 70 - 100 MG/DL Specimen Performing Laboratory [facility] [address] [place] [address] 56638 * POC GLUCOSE (03/21/2018 5:02 PM) Component Value Ref Range Glucose, POC 92 70 - 100 MG/DL Specimen Performing Laboratory [facility] [address] [place], [place] [id number] * POC GLUCOSE (03/21/2018 4:37 PM) Component Value Ref Range Glucose, POC 79 70 - 100 MG/DL Specimen Performing Laboratory [facility] [address] [place], [place] [phone] * O2 SATURATION, MIXED VENOUS (03/21/2018 3:20 PM) Component Value Ref Range B2Jwa-Wpxzt Venous 76.0 % Specimen Performing Laboratory Blood [facility] [address] [place] [address] * POC GLUCOSE (03/21/2018 2:09 PM) Component Value Ref Range Glucose, POC 111 (H) 70 - 100 MG/DL Specimen Performing Laboratory [facility] [address] [place] [address] * BLOOD GASES, ARTERIAL (03/21/2018 1:08 PM) Component Value Ref Range pH-Arterial 7.38 7.35 - 7.45 pCO2-Arterial 42 35 - 45 MMHG pO2-Arterial 115 (H) 80 - 100 MMHG Base Deficit-Arterial 0.1 MMOL/L O2 Sat-Arterial 98.5 95 - 99 % Cqtdpmlayqx-MQW-Lwj 24.4 21 - 28 MMOL/L Specimen Performing Laboratory Blood, arterial - Blood [facility] [address] [place] [address] * MAGNESIUM (03/21/2018 1:08 PM) Component Value Ref Range Magnesium 2.0 1.6 - 2.6 mg/dL Specimen Performing Laboratory Blood [facility] [address] [place], [place] [phone] * COMPREHENSIVE METABOLIC PANEL (03/21/2018 1:08 PM) Component Value Ref Range Sodium 128 (L) 137 - 147 MMOL/L Potassium 4.6 3.5 - 5.1 MMOL/L Chloride 94 (L) 98 - 110 MMOL/L Glucose 142 (H) 70 - 100 MG/DL Blood Urea Nitrogen 52 (H) 7 - 25 MG/DL Creatinine 1.83 (H) 0.4 - 1.00 MG/DL Calcium 8.6 8.5 - 10.6 MG/DL Total Protein 5.7 (L) 6.0 - 8.0 G/DL Total Bilirubin 0.4 0.3 - 1.2 MG/DL Albumin 3.4 (L) 3.5 - 5.0 G/DL Alk Phosphatase 40 25 - 110 U/L AST (SGOT) 53 (H) 7 - 40 U/L CO2 25 21 - 30 MMOL/L ALT (SGPT) 164 (H) 7 - 56 U/L Anion Gap 9 3 - 12 eGFR Non 28 (L) >60 mL/min Comment: The eGFR is not validated for use in drug dosing adjustments.Continue to use estimated creatinine clearance per dosing reference text.Please contact the Clinical Pharmacist for questions. eGFR 33 (L) >60 mL/min Comment: The eGFR is not validated for use in drug dosing adjustments.Continue to use estimated creatinine clearance per dosing reference text.Please contact the Clinical Pharmacist for questions. Specimen Performing Laboratory Blood MAIN LAB [address] [place] [address] * POC GLUCOSE (03/21/2018 12:07 PM) Component Value Ref Range Glucose, POC 155 (H) 70 - 100 MG/DL Specimen Performing Laboratory MAIN LAB [address] [place] [address] * 2-D + DOPPLER ECHOCARDIOGRAM (03/21/2018 11:24 AM) Component Value Ref Range IVS 0.86 0.6 - 0.9 cm LVIDD 5.04 3.8 - 5.2 cm LVIDS 4.63 2.2 - 3.5 cm PW 0.89 0.6 - 0.9 cm TDI e' 0.13 m/s Right Ventricular Mid 3.82 1.9 - 3.5 cm Diameter LA size 3.96 2.7 - 3.8 cm LA volume 41.01 22 - 52 mL Right Atrial Area 17.67 <18 cm2 Right Atrial Major 5.49 2.2 - 2.8 cm Dimension AV peak velocity 1.5 m/s MV Peak A Alisson 0.59 m/s MV Peak E Alisson PW 1.05 m/s Right Heart Systolic 1.39 >1.7 cm Mmode TAPSE Right Ventricular Basal 4.62 2.5 - 4.1 cm Diameter Sinus 3.53 2.7 - 3.3 cm BSA 2.31 m2 FS 8.13 28 - 44 % EF 13.82 % Left Atrium Index 17.75 16 - 34 E/A ratio 1.78 E/E' ratio 8.08 CV ECHO PV PERSONNEL ANALYST TREVOR Werner LV mass 154.54 66 - 150 g RWT 0.35 <=0.42 Cardiology Ultrasound Siemens [id number] Machine Left Ventricle Mass Index 66.90 44 - 88 g/m2 TV rest pulmonary artery 46 mmHg pressure Right Heart Systolic TDI 0.099 m/s S' ECHO EF 20 % Specimen Performing Laboratory OTHER OUTSIDE LAB Narrative Technically difficult study; i.v. transpulmonary contrast was used to define the endocardial borders. Severely reduced left ventricular systolic function, estimated ejection fraction is 20%, severe global hypokinesis. The right ventricle is moderately enlarged, decreased systolic function. TAPSE ranged from 1.36 cm to 1.40 cm (reference range 1.5 - 2.0 cm). Trace mitral valve regurgitation, mild to moderate tricuspid valve regurgitation. Estimated Peak Systolic PA Pressure=46 mmHg Probably borderline grade II diastolic dysfunction, elevated filling pressure. * POC GLUCOSE (03/21/2018 10:56 AM) Component Value Ref Range Glucose, POC 152 (H) 70 - 100 MG/DL Specimen Performing Laboratory MAIN LAB [address] [place] [address] * POC GLUCOSE (03/21/2018 9:59 AM) Component Value Ref Range Glucose, POC 159 (H) 70 - 100 MG/DL Specimen Performing Laboratory MAIN LAB [address] [place] [address] * POC GLUCOSE (03/21/2018 8:25 AM) Component Value Ref Range Glucose, POC 198 (H) 70 - 100 MG/DL Specimen Performing Laboratory MAIN LAB [address] [place] [address] * POC GLUCOSE (03/21/2018 6:46 AM) Component Value Ref Range Glucose, POC 199 (H) 70 - 100 MG/DL Specimen Performing Laboratory [facility] [address] [place] [address] * PTT (APTT) (03/21/2018 6:46 AM) Component Value Ref Range APTT 74.2 (H) 21.0 - 39.0 SEC Specimen Performing Laboratory Blood [facility] [address] [place] [address] * POC GLUCOSE (03/21/2018 6:03 AM) Component Value Ref Range Glucose, POC 224 (H) 70 - 100 MG/DL Specimen Performing Laboratory MAIN LAB [address] [place] [address] * CHEST SINGLE VIEW (03/21/2018 5:53 AM) Specimen Performing Laboratory [facility] RAD RESULTS Impressions 1.Cardiomegaly with mild pulmonary venous congestion. 2.Persistent opacities in bilateral lung bases compatible with atelectasis, edema and/or pneumonia, with probable small left pleural effusion. Finalized by Violette Moura M.D. on 03/21/2018 11:27 AM. Dictated by Violette Moura M.D. on 03/21/2018 11:25 AM. Narrative CHEST SINGLE VIEW Indication: IABP; PA catheter. Comparison: March 20, 2018 Findings: The heart appears mildly enlarged. There is mild pulmonary venous congestion. There are persistent opacities in the bilateral lung bases compatible with atelectasis, edema and/or pneumonia. There may be a small left pleural effusion. No pneumothorax is identified. The enteric tube is seen coursing below the diaphragm out of the field of view. Remaining visualized tubes and lines appear in similar positions. Procedure Note Interface, Radiant Results - 03/21/2018 11:30 AM CDT CHEST SINGLE VIEW Indication: IABP; PA catheter. Comparison: March 20, 2018 Findings: The heart appears mildly enlarged. There is mild pulmonary venous congestion. There are persistent opacities in the bilateral lung bases compatible with atelectasis, edema and/or pneumonia. There may be a small left pleural effusion. No pneumothorax is identified. The enteric tube is seen coursing below the diaphragm out of the field of view. Remaining visualized tubes and lines appear in similar positions. IMPRESSION 1. Cardiomegaly with mild pulmonary venous congestion. 2. Persistent opacities in bilateral lung bases compatible with atelectasis, edema and/or pneumonia, with probable small left pleural effusion. Finalized by Violette Moura M.D. on 03/21/2018 11:27 AM. Dictated by Violette Moura M.D. on 03/21/2018 11:25 AM. * POC GLUCOSE (03/21/2018 5:03 AM) Component Value Ref Range Glucose, POC 214 (H) 70 - 100 MG/DL Specimen Performing Laboratory MAIN LAB [address] [place] [address] * BLOOD GASES, ARTERIAL (03/21/2018 4:10 AM) Component Value Ref Range pH-Arterial 7.43 7.35 - 7.45 pCO2-Arterial 39 35 - 45 MMHG pO2-Arterial 80 80 - 100 MMHG Base Excess-Arterial 1.2 MMOL/L O2 Sat-Arterial 96.3 95 - 99 % [id number]-XOW-Zhg 25.4 21 - 28 MMOL/L Specimen Performing Laboratory Blood, arterial - Blood [facility] MAIN LAB [address] [place] [address] * O2 SATURATION, MIXED VENOUS (03/21/2018 4:10 AM) Component Value Ref Range [id number]-[id number] Venous 69.3 % Specimen Performing Laboratory Blood MAIN LAB [address] [place] [address] * MAGNESIUM (03/21/2018 4:10 AM) Component Value Ref Range Magnesium 2.0 1.6 - 2.6 mg/dL Specimen Performing Laboratory Blood MAIN LAB [address] [place] [address] * COMPREHENSIVE METABOLIC PANEL (03/21/2018 4:10 AM) Component Value Ref Range Sodium 125 (L) 137 - 147 MMOL/L Potassium 4.1 3.5 - 5.1 MMOL/L Chloride 92 (L) 98 - 110 MMOL/L Glucose 208 (H) 70 - 100 MG/DL Blood Urea Nitrogen 48 (H) 7 - 25 MG/DL Creatinine 1.88 (H) 0.4 - 1.00 MG/DL Calcium 8.8 8.5 - 10.6 MG/DL Total Protein 5.3 (L) 6.0 - 8.0 G/DL Total Bilirubin 0.5 0.3 - 1.2 MG/DL Albumin 3.2 (L) 3.5 - 5.0 G/DL Alk Phosphatase 41 25 - 110 U/L AST (SGOT) 60 (H) 7 - 40 U/L CO2 24 21 - 30 MMOL/L ALT (SGPT) 176 (H) 7 - 56 U/L Anion Gap 9 3 - 12 eGFR Non 27 (L) >60 mL/min Comment: The eGFR is not validated for use in drug dosing adjustments.Continue to use estimated creatinine clearance per dosing reference text.Please contact the Clinical Pharmacist for questions. eGFR 32 (L) >60 mL/min Comment: The eGFR is not validated for use in drug dosing adjustments.Continue to use estimated creatinine clearance per dosing reference text.Please contact the Clinical Pharmacist for questions. Specimen Performing Laboratory Blood [facility] [address] [place] [address] * CBC (03/21/2018 4:10 AM) Component Value Ref Range White Blood Cells 11.8 (H) 4.5 - 11.0 K/UL RBC 4.16 4.0 - 5.0 M/UL Hemoglobin 11.5 (L) 12.0 - 15.0 GM/DL Hematocrit 35.6 (L) 36 - 45 % MCV 85.7 80 - 100 FL MCH 27.6 26 - 34 PG MCHC 32.2 32.0 - 36.0 G/DL RDW 17.4 (H) 11 - 15 % Platelet Count 94 (L) 150 - 400 K/UL MPV 9.4 7 - 11 FL Specimen Performing Laboratory Blood [facility] [address] [place] [address] * POC GLUCOSE (03/21/2018 4:07 AM) Component Value Ref Range Glucose, POC 196 (H) 70 - 100 MG/DL Specimen Performing Laboratory [facility] [address] [place] [address] * POC GLUCOSE (03/21/2018 3:02 AM) Component Value Ref Range Glucose, POC 199 (H) 70 - 100 MG/DL Specimen Performing Laboratory [facility] [address] [place] [address] * POC GLUCOSE (03/21/2018 1:56 AM) Component Value Ref Range Glucose, POC 175 (H) 70 - 100 MG/DL Specimen Performing Laboratory [facility] [address] [place] [address] * POC GLUCOSE (03/20/2018 11:58 PM) Component Value Ref Range Glucose, POC 153 (H) 70 - 100 MG/DL Specimen Performing Laboratory [facility] [address] [place] [address] * POC GLUCOSE (03/20/2018 10:04 PM) Component Value Ref Range Glucose, POC 162 (H) 70 - 100 MG/DL Specimen Performing Laboratory [facility] [address] [place] [address] * BLOOD GASES, ARTERIAL (03/20/2018 10:00 PM) Component Value Ref Range pH-Arterial 7.42 7.35 - 7.45 pCO2-Arterial 37 35 - 45 MMHG pO2-Arterial 90 80 - 100 MMHG Base Deficit-Arterial 0.0 MMOL/L O2 Sat-Arterial 97.3 95 - 99 % Thboimugjne-NNG-Lkj 24.4 21 - 28 MMOL/L Specimen Performing Laboratory Blood, arterial - Blood MAIN LAB [address] [place] [address] * POC GLUCOSE (03/20/2018 9:06 PM) Component Value Ref Range Glucose, POC 128 (H) 70 - 100 MG/DL Specimen Performing Laboratory MAIN LAB [address] [place], [place] [id number] * O2 SATURATION, MIXED VENOUS (03/20/2018 8:10 PM) Component Value Ref Range F9Tcw-Ahcnb Venous 74.2 % Specimen Performing Laboratory Blood MAIN LAB [address] [place] [address] * MAGNESIUM (03/20/2018 8:10 PM) Component Value Ref Range Magnesium 2.0 1.6 - 2.6 mg/dL Specimen Performing Laboratory Blood MAIN LAB [address] [place] [address] * COMPREHENSIVE METABOLIC PANEL (03/20/2018 8:10 PM) Component Value Ref Range Sodium 126 (L) 137 - 147 MMOL/L Potassium 4.1 3.5 - 5.1 MMOL/L Chloride 94 (L) 98 - 110 MMOL/L Glucose 137 (H) 70 - 100 MG/DL Blood Urea Nitrogen 49 (H) 7 - 25 MG/DL Creatinine 1.63 (H) 0.4 - 1.00 MG/DL Calcium 8.5 8.5 - 10.6 MG/DL Total Protein 5.6 (L) 6.0 - 8.0 G/DL Total Bilirubin 0.5 0.3 - 1.2 MG/DL Albumin 3.3 (L) 3.5 - 5.0 G/DL Alk Phosphatase 38 25 - 110 U/L AST (SGOT) 72 (H) 7 - 40 U/L CO2 22 21 - 30 MMOL/L ALT (SGPT) 209 (H) 7 - 56 U/L Anion Gap 10 3 - 12 eGFR Non 32 (L) >60 mL/min Comment: The eGFR is not validated for use in drug dosing adjustments.Continue to use estimated creatinine clearance per dosing reference text.Please contact the Clinical Pharmacist for questions. eGFR 38 (L) >60 mL/min Comment: The eGFR is not validated for use in drug dosing adjustments.Continue to use estimated creatinine clearance per dosing reference text.Please contact the Clinical Pharmacist for questions. Specimen Performing Laboratory Blood [facility] [address] [place] [address] * POC GLUCOSE (03/20/2018 8:04 PM) Component Value Ref Range Glucose, POC 130 (H) 70 - 100 MG/DL Specimen Performing Laboratory [facility] [address] [place] [address] * POC GLUCOSE (03/20/2018 7:36 PM) Component Value Ref Range Glucose, POC 115 (H) 70 - 100 MG/DL Specimen Performing Laboratory [facility] [address] [place] [address] * POC GLUCOSE (03/20/2018 7:03 PM) Component Value Ref Range Glucose, POC 117 (H) 70 - 100 MG/DL Specimen Performing Laboratory [facility] [address] [place] [address] * POC GLUCOSE (03/20/2018 5:55 PM) Component Value Ref Range Glucose, POC 168 (H) 70 - 100 MG/DL Specimen Performing Laboratory [facility] [address] [place] [address] * POC ACTIVATED CLOTTING TIME (03/20/2018 4:46 PM) Component Value Ref Range Activated Clotting Time 196 s Specimen Performing Laboratory [facility] [address] [place] [address] * POC GLUCOSE (03/20/2018 3:59 PM) Component Value Ref Range Glucose, POC 179 (H) 70 - 100 MG/DL Specimen Performing Laboratory [facility] [address] [place] [address] * POC GLUCOSE (03/20/2018 3:03 PM) Component Value Ref Range Glucose, POC 184 (H) 70 - 100 MG/DL Specimen Performing Laboratory [facility] [address] [place] [address] * POC GLUCOSE (03/20/2018 2:00 PM) Component Value Ref Range Glucose, POC 206 (H) 70 - 100 MG/DL Specimen Performing Laboratory [facility] [address] [place] [address] * ABDOMEN AP ONLY (03/20/2018 1:55 PM) Specimen Performing Laboratory RAD RESULTS Impressions Enteric tube with tip [...] Moura M.D. on 03/20/2018 2:51 PM. * ABDOMEN AP ONLY (03/20/2018 1:55 PM) Specimen Performing Laboratory [facility] RAD RESULTS Impressions Enteric tube with tip overlying gastric outlet. Finalized by Violette Moura M.D. on 03/20/2018 2:51 PM. Dictated by Violette Moura M.D. on 03/20/2018 2:50 PM. Narrative ABDOMEN AP ONLY Indication: corpak placement. Comparison: Study done earlier the same day Findings: The gastric tube remains with the tip over the antrum of the stomach. The enteric tube is seen with the tip overlying the gastric outlet. Surgical clips overlie the right upper quadrant. Scattered gas is seen in large and small bowel in the upper abdomen. Procedure Note Interface, Radiant Results - 03/20/2018 2:54 PM CDT ABDOMEN AP ONLY Indication: corpak placement. Comparison: Study done earlier the same day Findings: The gastric tube remains with the tip over the antrum of the stomach. The enteric tube is seen with the tip overlying the gastric outlet. Surgical clips overlie the right upper quadrant. Scattered gas is seen in large and small bowel in the upper abdomen. IMPRESSION Enteric tube with tip overlying gastric outlet. Finalized by Violette Moura M.D. on 03/20/2018 2:51 PM. Dictated by Violette Moura M.D. on 03/20/2018 2:50 PM. * ABDOMEN AP ONLY (03/20/2018 1:55 PM) Specimen Performing Laboratory [facility] RAD RESULTS Impressions Enteric tube with tip coiled over region of gastric outlet. Finalized by Violette Moura M.D. on 03/20/2018 2:50 PM. Dictated by Violette Moura M.D. on 03/20/2018 2:49 PM. Narrative ABDOMEN AP ONLY Indication: feeding tube placement. Comparison: March 19, 2018 Findings: The gastric tube remains with the tip overlying the antrum of the stomach. There is been placement of an enteric tube with the tip coiled over the region of the gastric outlet. Scattered gas is seen in large and small bowel in the upper abdomen. Procedure Note Interface, Radiant Results - 03/20/2018 2:53 PM CDT ABDOMEN AP ONLY Indication: feeding tube placement. Comparison: March 19, 2018 Findings: The gastric tube remains with the tip overlying the antrum of the stomach. There is been placement of an enteric tube with the tip coiled over the region of the gastric outlet. Scattered gas is seen in large and small bowel in the upper abdomen. IMPRESSION Enteric tube with tip coiled over region of gastric outlet. Finalized by Violette Moura M.D. on 03/20/2018 2:50 PM. Dictated by Violette Moura M.D. on 03/20/2018 2:49 PM. * CHEST SINGLE VIEW (03/20/2018 1:55 PM) Specimen Performing Laboratory [facility] RAD RESULTS Impressions 1.Redemonstration of cardiomegaly with persistent consolidation in left lung base, compatible with atelectasis and/or pneumonia. 2.Placement of enteric tube with tip overlying distal esophagus. Results were called to [facility], at the time of interpretation at 12:10 PM on March 20, 2018. Finalized by Violette Moura M.D. on 03/20/2018 2:09 PM. Dictated by Violette Moura M.D. on 03/20/2018 2:04 PM. Narrative Chest single view Indication: 68-year-old female desatting while intubated. Comparison: Study done earlier the same day Findings: The heart remains mildly enlarged. The pulmonary vasculature is unremarkable. There is persistent consolidation in the left lung base, compatible with atelectasis and/or pneumonia. Small pleural effusion is not excluded. Mild right basilar atelectasis is also noted. There has been placement of an enteric tube with the tip over the distal esophagus. Remaining visualized indwelling medical devices appear in similar positions. Procedure Note Interface, Radiant Results - 03/20/2018 2:23 PM CDT Chest single view Indication: 68-year-old female desatting while intubated. Comparison: Study done earlier the same day Findings: The heart remains mildly enlarged. The pulmonary vasculature is unremarkable. There is persistent consolidation in the left lung base, compatible with atelectasis and/or pneumonia. Small pleural effusion is not excluded. Mild right basilar atelectasis is also noted. There has been placement of an enteric tube with the tip over the distal esophagus. Remaining visualized indwelling medical devices appear in similar positions. IMPRESSION 1. Redemonstration of cardiomegaly with persistent consolidation in left lung base, compatible with atelectasis and/or pneumonia. 2. Placement of enteric tube with tip overlying distal esophagus. Results were called to [facility] ICU, at the time of interpretation at 12:10 PM on March 20, 2018. Finalized by Violette Moura M.D. on 03/20/2018 2:09 PM. Dictated by Violette Moura M.D. on 03/20/2018 2:04 PM. * POC GLUCOSE (03/20/2018 1:05 PM) Component Value Ref Range Glucose, POC 221 (H) 70 - 100 MG/DL Specimen Performing Laboratory MAIN LAB [address] [place] [address] * O2 SATURATION, MIXED VENOUS (03/20/2018 12:15 PM) Component Value Ref Range [id number] Venous 74.9 % Specimen Performing Laboratory Blood MAIN LAB [address] [place] [address] * POC GLUCOSE (03/20/2018 12:06 PM) Component Value Ref Range Glucose, POC 234 (H) 70 - 100 MG/DL Specimen Performing Laboratory MAIN LAB [address] [place] [address] * MAGNESIUM (03/20/2018 12:05 PM) Component Value Ref Range Magnesium 2.0 1.6 - 2.6 mg/dL Specimen Performing Laboratory Blood MAIN LAB [address] [place] [address] * COMPREHENSIVE METABOLIC PANEL (03/20/2018 12:05 PM) Component Value Ref Range Sodium 126 (L) 137 - 147 MMOL/L Potassium 4.2 3.5 - 5.1 MMOL/L Chloride 94 (L) 98 - 110 MMOL/L Glucose 261 (H) 70 - 100 MG/DL Blood Urea Nitrogen 45 (H) 7 - 25 MG/DL Creatinine 1.64 (H) 0.4 - 1.00 MG/DL Calcium 8.3 (L) 8.5 - 10.6 MG/DL Total Protein 5.5 (L) 6.0 - 8.0 G/DL Total Bilirubin 0.6 0.3 - 1.2 MG/DL Albumin 3.2 (L) 3.5 - 5.0 G/DL Alk Phosphatase 41 25 - 110 U/L AST (SGOT) 82 (H) 7 - 40 U/L CO2 23 21 - 30 MMOL/L ALT (SGPT) 240 (H) 7 - 56 U/L Anion Gap 9 3 - 12 eGFR Non 31 (L) >60 mL/min Comment: The eGFR is not validated for use in drug dosing adjustments.Continue to use estimated creatinine clearance per dosing reference text.Please contact the Clinical Pharmacist for questions. eGFR 38 (L) >60 mL/min Comment: The eGFR is not validated for use in drug dosing adjustments.Continue to use estimated creatinine clearance per dosing reference text.Please contact the Clinical Pharmacist for questions. Specimen Performing Laboratory Blood MAIN LAB [address] [place] [address] * POC GLUCOSE (03/20/2018 10:59 AM) Component Value Ref Range Glucose, POC 231 (H) 70 - 100 MG/DL Specimen Performing Laboratory MAIN LAB [address] [place] [address] * PTT (APTT) (03/20/2018 7:23 AM) Component Value Ref Range APTT 109.8 (H) 21.0 - 39.0 SEC Specimen Performing Laboratory Blood MAIN LAB [address] [place] [address] * POC GLUCOSE (03/20/2018 6:00 AM) Component Value Ref Range Glucose, POC 232 (H) 70 - 100 MG/DL Specimen Performing Laboratory [facility] MAIN LAB [address] [place] [address] * CHEST SINGLE VIEW (03/20/2018 4:38 AM) Specimen Performing Laboratory [facility] RAD RESULTS Impressions 1. Lines and tubes as above with no pneumothorax. 2. Persistent mild cardiomegaly. 3. Mild left basilar consolidation, likely a combination of pleural effusion and atelectasis. Approved by Joseph Pop M.D. on 03/20/2018 10:28 AM By my electronic signature, I attest that I have personally reviewed the images for this examination and formulated the interpretations and opinions expressed in this report Finalized by Masoud Dozier M.D. on 03/20/2018 10:47 AM. Dictated by Joseph Pop M.D. on 03/20/2018 9:46 AM. Narrative Procedure: CHEST SINGLE VIEW Clinical Indication: Intra-aortic balloon pump, PA catheter Comparison: Chest x-ray from one day prior Findings: Right IJ Riviera-Mikel catheter has been placed with the tip over the right main pulmonary artery. Endotracheal tube, gastric tube and intra-aortic balloon pump remain in similar position. Interval placement of a left IJ central venous catheter with the tip over the upper mediastinum. There is mild cardiomegaly without pulmonary venous congestion. There is mild basilar consolidation. No pneumothorax. Redemonstration of a reversed left shoulder arthroplasty. Procedure Note Interface, Radiant Results - 03/20/2018 10:50 AM CDT Procedure: CHEST SINGLE VIEW Clinical Indication: Intra-aortic balloon pump, PA catheter Comparison: Chest x-ray from one day prior Findings: Right IJ Riviera-Mikel catheter has been placed with the tip over the right main pulmonary artery. Endotracheal tube, gastric tube and intra-aortic balloon pump remain in similar position. Interval placement of a left IJ central venous catheter with the tip over the upper mediastinum. There is mild cardiomegaly without pulmonary venous congestion. There is mild basilar consolidation. No pneumothorax. Redemonstration of a reversed left shoulder arthroplasty. IMPRESSION 1. Lines and tubes as above with no pneumothorax. 2. Persistent mild cardiomegaly. 3. Mild left basilar consolidation, likely a combination of pleural effusion and atelectasis. Approved by Joseph Pop M.D. on 03/20/2018 10:28 AM By my electronic signature, I attest that I have personally reviewed the images for this examination and formulated the interpretations and opinions expressed in this report Finalized by Masoud Dozier M.D. on 03/20/2018 10:47 AM. Dictated by Joseph Pop M.D. on 03/20/2018 9:46 AM. * BLOOD GASES, ARTERIAL (03/20/2018 4:00 AM) Component Value Ref Range pH-Arterial 7.41 7.35 - 7.45 pCO2-Arterial 35 35 - 45 MMHG pO2-Arterial 106 (H) 80 - 100 MMHG Base Deficit-Arterial 1.8 MMOL/L O2 Sat-Arterial 98.3 95 - 99 % Hwqllegwwpd-RSE-Isy 22.9 21 - 28 MMOL/L Specimen Performing Laboratory Blood, arterial - Blood MAIN LAB [address] [place] [address] * O2 SATURATION, MIXED VENOUS (03/20/2018 4:00 AM) Component Value Ref Range [id number] Venous 78.2 % Specimen Performing Laboratory Blood MAIN LAB [address] [place] [address] * MAGNESIUM (03/20/2018 4:00 AM) Component Value Ref Range Magnesium 2.0 1.6 - 2.6 mg/dL Specimen Performing Laboratory Blood MAIN LAB [address] [place] [address] * COMPREHENSIVE METABOLIC PANEL (03/20/2018 4:00 AM) Component Value Ref Range Sodium 124 (L) 137 - 147 MMOL/L Potassium 3.7 3.5 - 5.1 MMOL/L Chloride 92 (L) 98 - 110 MMOL/L Glucose 263 (H) 70 - 100 MG/DL Blood Urea Nitrogen 43 (H) 7 - 25 MG/DL Creatinine 1.55 (H) 0.4 - 1.00 MG/DL Calcium 8.4 (L) 8.5 - 10.6 MG/DL Total Protein 5.6 (L) 6.0 - 8.0 G/DL Total Bilirubin 0.6 0.3 - 1.2 MG/DL Albumin 3.3 (L) 3.5 - 5.0 G/DL Alk Phosphatase 41 25 - 110 U/L AST (SGOT) 97 (H) 7 - 40 U/L CO2 21 21 - 30 MMOL/L ALT (SGPT) 269 (H) 7 - 56 U/L Anion Gap 11 3 - 12 eGFR Non 33 (L) >60 mL/min Comment: The eGFR is not validated for use in drug dosing adjustments.Continue to use estimated creatinine clearance per dosing reference text.Please contact the Clinical Pharmacist for questions. eGFR 40 (L) >60 mL/min Comment: The eGFR is not validated for use in drug dosing adjustments.Continue to use estimated creatinine clearance per dosing reference text.Please contact the Clinical Pharmacist for questions. Specimen Performing Laboratory Blood MAIN LAB [address] [place] [address] * LACTIC ACID(LACTATE) (03/20/2018 4:00 AM) Component Value Ref Range Lactic Acid 1.1 0.5 - 2.0 MMOL/L Specimen Performing Laboratory Blood MAIN LAB [address] [place] [address] * CBC (03/20/2018 4:00 AM) Component Value Ref Range White Blood Cells 11.6 (H) 4.5 - 11.0 K/UL RBC 4.51 4.0 - 5.0 M/UL Hemoglobin 12.5 12.0 - 15.0 GM/DL Hematocrit 38.1 36 - 45 % MCV 84.5 80 - 100 FL MCH 27.8 26 - 34 PG MCHC 32.8 32.0 - 36.0 G/DL RDW 17.2 (H) 11 - 15 % Platelet Count 109 (L) 150 - 400 K/UL MPV 9.4 7 - 11 FL Specimen Performing Laboratory Blood MAIN LAB [address] [place], [place] [id number] * PTT (APTT) (03/20/2018 12:45 AM) Component Value Ref Range APTT 84.2 (H) 21.0 - 39.0 SEC Specimen Performing Laboratory Blood MAIN LAB [address] [place], [place] [id number] * BLOOD GASES, ARTERIAL (03/20/2018 12:44 AM) Component Value Ref Range pH-Arterial 7.45 7.35 - 7.45 pCO2-Arterial 29 (L) 35 - 45 MMHG pO2-Arterial 105 (H) 80 - 100 MMHG Base Deficit-Arterial 2.1 MMOL/L O2 Sat-Arterial 98.6 95 - 99 % Qisajvabrow-WPN-Tod 22.6 21 - 28 MMOL/L Specimen Performing Laboratory Blood, arterial - Blood MAIN LAB [address] [place] [address] * CULTURE-BLOOD W/SENSITIVITY (03/19/2018 11:34 PM) Component Value Ref Range Battery Name BLOOD CULTURE Specimen Description BLOOD RIGHT WRIST Special Requests NONE Culture NO GROWTH 5 DAYS Report Status FINAL 03/26/2018 Specimen Performing Laboratory Blood MAIN LAB [address] [place] [address] * BLOOD GASES, ARTERIAL (03/19/2018 11:25 PM) Component Value Ref Range pH-Arterial 7.45 7.35 - 7.45 pCO2-Arterial 28 (L) 35 - 45 MMHG pO2-Arterial 122 (H) 80 - 100 MMHG Base Deficit-Arterial 3.1 MMOL/L O2 Sat-Arterial 98.9 95 - 99 % Egpnmzrahwg-PAE-Kjt 21.9 21 - 28 MMOL/L Specimen Performing Laboratory Blood, arterial - Blood MAIN LAB [address] [place] [address] * O2 SATURATION, MIXED VENOUS (03/19/2018 11:25 PM) Component Value Ref Range F3Imv-Prtxc Venous 58.7 % Specimen Performing Laboratory Blood MAIN LAB [address] [place] [address] * POC BLOOD GAS ARTERIAL (03/19/2018 10:30 PM) Component Value Ref Range PH-ART-POC 7.41 7.35 - 7.45 PHC7-VFK-IWW 31 (L) 35 - 45 MMHG PO2-ART-POC 81 80 - 100 MMHG Base Def-ART-POC 5.0 MMOL/L O2 Sat-ART-POC 96.0 95 - 99 % Grzugbgdjwd-JZJ-CNT 19.6 (L) 21 - 28 MMOL/L Specimen Performing Laboratory MAIN LAB [address] [place] [address] * POC GLUCOSE (03/19/2018 9:38 PM) Component Value Ref Range Glucose, POC 230 (H) 70 - 100 MG/DL Specimen Performing Laboratory MAIN LAB [address] [place], [place] [id number] * MAGNESIUM (03/19/2018 9:31 PM) Component Value Ref Range Magnesium 2.1 1.6 - 2.6 mg/dL Specimen Performing Laboratory Blood MAIN LAB [address] [place], [place] [id number] * COMPREHENSIVE METABOLIC PANEL (03/19/2018 9:31 PM) Component Value Ref Range Sodium 123 (L) 137 - 147 MMOL/L Potassium 3.9 3.5 - 5.1 MMOL/L Chloride 92 (L) 98 - 110 MMOL/L Glucose 260 (H) 70 - 100 MG/DL Blood Urea Nitrogen 43 (H) 7 - 25 MG/DL Creatinine 1.64 (H) 0.4 - 1.00 MG/DL Calcium 8.2 (L) 8.5 - 10.6 MG/DL Total Protein 6.0 6.0 - 8.0 G/DL Total Bilirubin 0.6 0.3 - 1.2 MG/DL Albumin 3.6 3.5 - 5.0 G/DL Alk Phosphatase 47 25 - 110 U/L AST (SGOT) 128 (H) 7 - 40 U/L CO2 20 (L) 21 - 30 MMOL/L ALT (SGPT) 322 (H) 7 - 56 U/L Anion Gap 11 3 - 12 eGFR Non 31 (L) >60 mL/min Comment: The eGFR is not validated for use in drug dosing adjustments.Continue to use estimated creatinine clearance per dosing reference text.Please contact the Clinical Pharmacist for questions. eGFR 38 (L) >60 mL/min Comment: The eGFR is not validated for use in drug dosing adjustments.Continue to use estimated creatinine clearance per dosing reference text.Please contact the Clinical Pharmacist for questions. Specimen Performing Laboratory Blood MAIN LAB [address] [place] [address] * POC GLUCOSE (03/19/2018 6:01 PM) Component Value Ref Range Glucose, POC 218 (H) 70 - 100 MG/DL Specimen Performing Laboratory MAIN LAB [address] [place] [address] * CARDIAC CATH REPORT (03/19/2018 5:02 PM) Specimen Performing Laboratory OTHER OUTSIDE LAB Procedure Note Ila Gray MD - 03/19/2018 5:02 PM CDT [facility] CARDIAC CATHETERIZATION REPORT Page 2 FARHEEN Stovall : 1950 #: [id number] MR #/Billing ID #: [id number] / [id number] DATE: 03/19/2018 AIR TRAFFIC COORDINATOR: Ila Gray MD DICTATING PROVIDER: Kristian Caputo MD REFERRING PHYSICIAN: INTER[employer]ION[employer] DIRECTOR: Kristian Caputo MD PROCEDURES PERFORMED: 1. Left IJ ultrasound-guided venous access. 2. Left IJ central line placement. 3. Right IJ 8-[place] Fast-Cath venous access. 4. Right heart catheterization. 5. Endomyocardial biopsy. INDICATION FOR PROCEDURE: Farheen Gutierres is a 68-year-old woman who presents [...] PROCEDURE: The patient was brought into the skilled laborer intubated and deeply sedated. We then noticed [...] right IJ central venous catheter for an 8-[place] Fast-Cath. Following this, we introduced a 7.5-[place]izen [place] Riviera-Mikel catheter which was serially advanced into the right atrium, right ventricle, pulmonary artery, and subsequently into the wedge position for assessment of saturations, measurement of pressures, and calculation of cardiac outputs and indices by thermodilution and Janay methods respectively. DETAILS OF RIGHT HEART CATHETERIZATION: [...] gradient 3 mmHg. 7. Cardiac output by Janay method was 4.5 L/minute, with an index of 2 L/minute per sq m. 8. Systemic vascular resistance was 1208 DSC -5 (15 Wood units). 9. Pulmonary vascular resistance 177 DSC -5 (2 Wood units). CONTRAST: None was used for the procedure. TOTAL AIR KERMA: 203 mGy. DETAILS OF THE ENDOMYOCARDIAL BIOPSY: We then introduced a 7-[place] bioptome through the 8-[place] venous sheath under fluoroscopic guidance in the AP and SINHALA projections. We obtained a total of 3 [...] and subsequently transferred her out of the skilled laborer. Dr. Gray was scrubbed and performed fall portions of the procedure, and supervised the rest of it as well. The Riviera was left at 54 cm at the level of the hub. She will be transported to the ICU for further inotropic and diuretic management. FINAL IMPRESSION: 1. Severely reduced cardiac index with very high filling pressures. 2. Moderate pulmonary hypertension, as outlined above. 3. Continued inotropic and diuretic support per the Heart Failure Team in the ICU. MD TORITO Wallace/Estuardo /[id number] cc: * O2HGB SAT-VENOUS POC (03/19/2018 4:39 PM) Component Value Ref Range O2HGB SAT-Venous POC 66.0 55 - 71 % Specimen Performing Laboratory [facility] MAIN LAB [address] [place] [address] * SURGICAL PATHOLOGY (03/19/2018 4:36 PM) Component Value Ref Range PATHOLOGY REPORT [facility] [email or web address] Department of Pathology and Laboratory Medicine [address] [place] [address] Surgical Pathology Office:[phone]:[phone] SURGICAL PATHOLOGY REPORT NAME: FARHEEN GUTIERRES SURG PATH #: [id number] MR #: [id number] SPECIMEN CLASS: SR BILLING #: [id number] ALT ID #:LOCATION: [id number] DATE OF PROCEDURE: 03/19/2018 AGE:68 SEX: F DATE RECEIVED: 03/19/2018 : 1950TIME RECEIVED:16:36 PHYSICIAN: ALEM JONES DATE OF REPORT: 03/20/2018 COPY TO:DATE OF PRINTIN03/20/2018 ################################################## ###################### Final Diagnosis: A. Right ventricle ([place] endomyocardial biopsy): Myocardium with moderate fibrosis. See comment and description. Comment: Only a few scattered T cells and macrophages are present, which are insufficient to warrant a diagnosis of myocarditis. There is focal cardiomyocyte vacuolization, which is non-specific but could reflect ischemic injury. Results were discussed with Dr. Brandon Jones on 03/20/18 at 3:30PM. Attestation: By this [...] specimen is submitted entirely in cassette A1.(lmt) 03/19/2018 If immunohistochemical stains and/or in situ hybridization are cited in this report, the performance characteristics were determined by the Department of Pathology and Laboratory Medicine of the [facility] ([employer]) in compliance with CLIA'88 regulations.Some [...] of Pathology and Laboratory Medicine of the [facility].It has not been cleared or approved by the FDA.The FDA has determined that such clearance or approval is not necessary. Specimen Performing Laboratory [facility] LAB RESULTS * O2HGB SAT-VENOUS POC (03/19/2018 4:21 PM) Component Value Ref Range O2HGB SAT-Venous POC 65.0 55 - 71 % Specimen Performing Laboratory MAIN LAB [address] [place] [address] * O2HGB SAT-VENOUS POC (03/19/2018 4:20 PM) Component Value Ref Range O2HGB SAT-Venous POC 64.1 55 - 71 % Specimen Performing Laboratory MAIN LAB [address] [place] [address] * MAGNESIUM (03/19/2018 1:55 PM) Component Value Ref Range Magnesium 2.3 1.6 - 2.6 mg/dL Specimen Performing Laboratory Blood MAIN LAB [address] [place] [id number] * COMPREHENSIVE METABOLIC PANEL (03/19/2018 1:55 PM) Component Value Ref Range Sodium 124 (L) 137 - 147 MMOL/L Potassium 4.2 3.5 - 5.1 MMOL/L Chloride 94 (L) 98 - 110 MMOL/L Glucose 281 (H) 70 - 100 MG/DL Blood Urea Nitrogen 46 (H) 7 - 25 MG/DL Creatinine 1.69 (H) 0.4 - 1.00 MG/DL Calcium 8.1 (L) 8.5 - 10.6 MG/DL Total Protein 6.0 6.0 - 8.0 G/DL Total Bilirubin 0.7 0.3 - 1.2 MG/DL Albumin 3.7 3.5 - 5.0 G/DL Alk Phosphatase 49 25 - 110 U/L AST (SGOT) 182 (H) 7 - 40 U/L CO2 20 (L) 21 - 30 MMOL/L ALT (SGPT) 370 (H) 7 - 56 U/L Anion Gap 10 3 - 12 eGFR Non 30 (L) >60 mL/min Comment: The eGFR is not validated for use in drug dosing adjustments.Continue to use estimated creatinine clearance per dosing reference text.Please contact the Clinical Pharmacist for questions. eGFR 37 (L) >60 mL/min Comment: The eGFR is not validated for use in drug dosing adjustments.Continue to use estimated creatinine clearance per dosing reference text.Please contact the Clinical Pharmacist for questions. Specimen Performing Laboratory Blood MAIN LAB [address] [place] [address] * POC GLUCOSE (03/19/2018 11:37 AM) Component Value Ref Range Glucose, POC 262 (H) 70 - 100 MG/DL Specimen Performing Laboratory MAIN LAB [address] [place] [address] * PTT (APTT) (03/19/2018 11:36 AM) Component Value Ref Range APTT 128.2 (H) 21.0 - 39.0 SEC Specimen Performing Laboratory Blood MAIN LAB [address] [place] [address] * LACTIC ACID(LACTATE) (03/19/2018 11:36 AM) Component Value Ref Range Lactic Acid 1.5 0.5 - 2.0 MMOL/L Specimen Performing Laboratory Blood KU MAIN LAB [address] [place] [address] * ABDOMEN AP ONLY (03/19/2018 11:24 AM) Specimen Performing Laboratory [facility] RAD RESULTS Impressions Advancement of gastric tube as noted above. Finalized by Masoud Dozier M.D. on 03/19/2018 12:10 PM. Dictated by Masoud Dozier M.D. on 03/19/2018 12:08 PM. Narrative Portable AP abdomen CLINICAL HISTORY: Orogastric tube placement. COMPARISON: Earlier exam timed at 0221 hours. FINDINGS: Portable AP abdomen demonstrates advancement of previously noted gastric tube, with tip now overlying the region of the gastric antrum. Overlying monitoring leads are noted in place. Intra-aortic balloon pump again partly visualized. The lower third of the abdomen and pelvis as well as portions of the peripheral right hemiabdomen are not included in the tvcem-ck-kcuh this study. Thoracolumbar spondylosis again appreciated. Procedure Note Interface, Radiant Results - 03/19/2018 12:13 PM CDT Portable AP abdomen CLINICAL HISTORY: Orogastric tube placement. COMPARISON: Earlier exam timed at 0221 hours. FINDINGS: Portable AP abdomen demonstrates advancement of previously noted gastric tube, with tip now overlying the region of the gastric antrum. Overlying monitoring leads are noted in place. Intra-aortic balloon pump again partly visualized. The lower third of the abdomen and pelvis as well as portions of the peripheral right hemiabdomen are not included in the xssmr-qo-jzqr this study. Thoracolumbar spondylosis again appreciated. IMPRESSION Advancement of gastric tube as noted above. Finalized by Masoud Dozier M.D. on 03/19/2018 12:10 PM. Dictated by Masoud Dozier M.D. on 03/19/2018 12:08 PM. * O2 SATURATION, MIXED VENOUS (03/19/2018 9:35 AM) Component Value Ref Range X1Woy-Gbdph Venous 60.5 % Specimen Performing Laboratory Blood KU MAIN LAB [address] [place] [address] * 2-D + DOPPLER ECHOCARDIOGRAM (03/19/2018 9:33 AM) Component Value Ref Range BSA 2.32 m2 CV ECHO PV PERSONNEL ANALYST TREVOR Werner LVIDD 5.5 3.8 - 5.2 cm IVS 0.8 0.6 - 0.9 cm PW 0.8 0.6 - 0.9 cm LVIDS 5.2 2.2 - 3.5 cm LA volume 59.0 22 - 52 mL Sinus 3.6 2.7 - 3.3 cm LV mass 159.96 66 - 150 g LA size 3.6 2.7 - 3.8 cm RWT 0.29 <=0.42 AV peak velocity 1.2 m/s TDI e' 0.130 m/s TV rest pulmonary artery 33 mmHg pressure Right Ventricular Basal 4.1 2.5 - 4.1 cm Diameter Right Ventricular Mid 3.8 1.9 - 3.5 cm Diameter Right Atrial Area 22.4 <18 cm2 Right Atrial Major 5.6 2.2 - 2.8 cm Dimension Right Heart Systolic TDI 0.070 m/s S' Right Heart Systolic 0.7 >1.7 cm Mmode TAPSE MV Peak E Alisson PW 0.900 m/s MV Peak A Alisson 0.300 m/s Cardiology Ultrasound Siemens [id number] Machine Left Ventricle Mass Index 68.95 44 - 88 g/m2 FS 5.45 28 - 44 % EF 9.27 % Left Atrium Index 25.43 16 - 34 E/A ratio 3.00 E/E' ratio 6.92 ECHO EF 10 % Specimen Performing Laboratory OTHER OUTSIDE LAB Narrative Left ventricular end-diastolic biplane volume 171.5 mL, 73.9 mL/m. Moderate LV dilatation. Normal left ventricular apical volume index is 29-61 mL/m.Moderate left ventricular apical is 71-80 mL/m. Severe global LV hypokinesis.Estimated ejection fraction 10-15%. Normal LV wall thicknesses. Severe RV hypokinesis. Septal motion consistent with RV volume overload. Mild right atrial dilatation. Aortic root dimension at the sinus of Valsalva is 3.7 cm, 1.55 cm/M2.The normal dimension is 1.7 0.2 cm/m2. Pulmonary artery, pulmonic valve, and aortic arch are not well visualized. Mechanically ventilated; right atrial pressure assumed to be 10 mm Hg. Calcified mitral annulus, chordae, and papillary muscle heads. Aortic sclerosis without aortic stenosis. Incomplete tricuspid valve leaflet coaptation in systole. Mild tricuspid and severe tricuspid regurgitation. Estimated PA pressure 28 mmHg. Trace pericardial effusion. No prior study available for comparison. * OSMOLALITY-URINE RANDOM (03/19/2018 8:31 AM) Component Value Ref Range Osmolality-Urine 324 50 - 1,400 MOS/KG Specimen Performing Laboratory Urine MAIN LAB [address] [place], [place] [id number] * RVP VIRAL PANEL PCR (03/19/2018 8:18 [...] Specimen Performing Laboratory Nasopharyngeal Swab MAIN LAB [address] [place], [place] [id number] * GRAM STAIN (03/19/2018 8:15 AM) Component Value Ref Range Battery Name GRAM STAIN Specimen Description SPUTUM Special Requests NONE Gram Stain GREATER THAN 25/LPF NEUTROPHILS LESS THAN 10/LPF SQUAMOUS EPITHELIAL CELLS FEW MIXED BACTERIA Report Status FINAL 03/19/2018 Specimen Performing Laboratory Sputum MAIN LAB [address] [place], [place] [id number] * CULTURE-RESP,LOWER W/SENSITIVITY (03/19/2018 8:15 AM) Component Value Ref Range Battery Name LOWER RESP CULTURE Specimen Description SPUTUM Special Requests NONE Direct Gram Stain GREATER THAN 25/LPF NEUTROPHILS LESS THAN 10/LPF SQUAMOUS EPITHELIAL CELLS FEW MIXED BACTERIA Culture Light growth NORMAL OROPHARYNGEAL REINIER Report Status FINAL 03/21/2018 Specimen Performing Laboratory Sputum MAIN LAB [address] [place] [address] * OSMOLALITY (03/19/2018 8:10 AM) Component Value Ref Range Osmolality 290 280 - 307 MOSMOL/KG Specimen Performing Laboratory Blood MAIN LAB [address] [place], [place] [id number] * CORTISOL,RANDOM (03/19/2018 8:10 AM) Component Value Ref Range Cortisol, Random 38.4 (H) 5.0 - 20.0 MCG/DL Specimen Performing Laboratory Blood MAIN LAB [address] [place], [place] [id number] * PTT (APTT) (03/19/2018 6:30 AM) Component Value Ref Range APTT 92.7 (H) 21.0 - 39.0 SEC Specimen Performing Laboratory Blood MAIN LAB [address] [place] [address] * BLOOD GASES, ARTERIAL (03/19/2018 4:20 AM) Component Value Ref Range pH-Arterial 7.35 7.35 - 7.45 pCO2-Arterial 37 35 - 45 MMHG pO2-Arterial 102 (H) 80 - 100 MMHG Base Deficit-Arterial 4.8 MMOL/L O2 Sat-Arterial 97.4 95 - 99 % Uofefinphoo-JRP-Ztv 20.5 (L) 21 - 28 MMOL/L Specimen Performing Laboratory Blood, arterial - Blood MAIN LAB [address] [place] [address] * LACTIC ACID (BG - RAPID LACTATE) (03/19/2018 4:20 AM) Component Value Ref Range Lactic Acid,BG 2.0 0.5 - 2.0 MMOL/L Specimen Performing Laboratory Blood MAIN LAB [address] [place] [address] * HEMOGLOBIN A1C (03/19/2018 4:00 AM) Component Value Ref Range Hemoglobin A1C 6.6 (H) 4.0 - 6.0 % Comment: The ADA recommends that most patients with type 1 and type 2 diabetes maintain an A1c level <7%. Specimen Performing Laboratory Blood MAIN LAB [address] [place] [address] * LIPID PROFILE (03/19/2018 4:00 AM) Component [...] mg/dL. Specimen Performing Laboratory Blood MAIN LAB [address] [place] [address] * MAGNESIUM (03/19/2018 4:00 AM) Component Value Ref Range Magnesium 1.8 1.6 - 2.6 mg/dL Specimen Performing Laboratory Blood MAIN LAB [address] [place] [address] * COMPREHENSIVE METABOLIC PANEL (03/19/2018 4:00 AM) Component Value Ref Range Sodium 125 (L) 137 - 147 MMOL/L Potassium 3.9 3.5 - 5.1 MMOL/L Chloride 94 (L) 98 - 110 MMOL/L Glucose 291 (H) 70 - 100 MG/DL Blood Urea Nitrogen 45 (H) 7 - 25 MG/DL Creatinine 1.71 (H) 0.4 - 1.00 MG/DL Calcium 8.0 (L) 8.5 - 10.6 MG/DL Total Protein 5.5 (L) 6.0 - 8.0 G/DL Total Bilirubin 0.7 0.3 - 1.2 MG/DL Albumin 3.4 (L) 3.5 - 5.0 G/DL Alk Phosphatase 44 25 - 110 U/L AST (SGOT) 285 (H) 7 - 40 U/L CO2 19 (L) 21 - 30 MMOL/L ALT (SGPT) 365 (H) 7 - 56 U/L Anion Gap 12 3 - 12 eGFR Non 30 (L) >60 mL/min Comment: The eGFR is not validated for use in drug dosing adjustments.Continue to use estimated creatinine clearance per dosing reference text.Please contact the Clinical Pharmacist for questions. eGFR 36 (L) >60 mL/min Comment: The eGFR is not validated for use in drug dosing adjustments.Continue to use estimated creatinine clearance per dosing reference text.Please contact the Clinical Pharmacist for questions. Specimen Performing Laboratory Blood MAIN LAB [address] [place] [address] * CBC (03/19/2018 4:00 AM) Component Value Ref Range White Blood Cells 15.1 (H) 4.5 - 11.0 K/UL RBC 4.72 4.0 - 5.0 M/UL Hemoglobin 13.4 12.0 - 15.0 GM/DL Hematocrit 40.1 36 - 45 % MCV 84.9 80 - 100 FL MCH 28.3 26 - 34 PG MCHC 33.4 32.0 - 36.0 G/DL RDW 17.3 (H) 11 - 15 % Platelet Count 140 (L) 150 - 400 K/UL MPV 10.0 7 - 11 FL Specimen Performing Laboratory Blood MAIN LAB [address] [place] [address] * AEROBIC BACTERIA, SUSCEPT (03/19/2018 2:40 AM) Component Value Ref Range Aerobic Bacteria, Suscept FINAL 03/27/2018 1445 SOURCE: BLOOD, BLOOD, STREP MITIS/ORALIS GROUP SUSCEPTIBILITY, AEROBIC, KAREN FINAL STREPTOCOCCUS MITIS/ORALIS Organism identified by client. -------- Organism STREPTOCOCCUS MITIS/ORALIS AntibioticMIC (mcg/mL)Interpretation -------- Penicillin 1 I Cefepime <=0.5 S Ceftriaxone<=0.5 S Meropenem <=0.25 S Levofloxacin <=2 S Erythromycin>0.5 R Vancomycin <=1 S S=SUSCEPTIBLEI=INTERMEDIATER=RESISTANT N=NONSUSCEPTIBLED=SUSCEPTIBLE [facility]SE [facility] Specimen Performing Laboratory MAIN LAB [address] [place] [address] * CULTURE-BLOOD W/SENSITIVITY (03/19/2018 2:40 AM) Component Value Ref Range Battery Name BLOOD CULTURE Specimen Description BLOOD aerobic bottle only LEFT FA Special Requests NONE Culture POSITIVE SMEAR: GRAM POSITIVE COCCI RESEMBLING STREPTOCOCCI STREPTOCOCCUS MITIS/ORALIS GROUP (A) Report Status FINAL 03/21/2018 Organism ID STREPTOCOCCUS MITIS/ORALIS GROUP Specimen Performing Laboratory Blood [employer] MAIN LAB [address] [place] [address] Organism Antibiotic Method Susceptibility Streptococcus Penicillin G ETEST 0.25 INTERMEDIATE: mitis/oralis group Intermediate Streptococcus Erythromycin ETEST 6 RESISTANT: Resistant mitis/oralis group Streptococcus Method ETEST ETEST mitis/oralis group * CULTURE-BLOOD W/SENSITIVITY (03/19/2018 2:30 AM) Component Value Ref Range Battery Name BLOOD CULTURE Specimen Description BLOOD LEFT ANTECUBITAL Special Requests NONE Culture POSITIVE SMEAR: GRAM POSITIVE COCCI RESEMBLING STREPTOCOCCI growth in both bottles POSITIVE SMEAR: GRAM POSITIVE COCCI RESEMBLING STAPHYLOCOCCI anaerobic bottle only CRITICAL VALUE CALLED TO AND READ BACK BY/TIME/TECH Patti at 2014 on 03.19.18 CB STREPTOCOCCUS MITIS/ORALIS GROUP See susceptibility on duplicate isolate GEMELLA HAEMOLYSANS , probable contaminant Report Status FINAL 03/22/2018 Specimen Performing Laboratory Blood [facility] MAIN LAB [address] [place] [address] * ABDOMEN AP ONLY (03/19/2018 2:30 AM) Specimen Performing Laboratory [facility] RAD RESULTS Impressions Gaseous distention of the stomach which is likely related to the facet resuscitation. High position of the gastric tube which should be advanced to a more effective position. Finalized by Javan Sue M.D. on 03/19/2018 8:01 AM. Dictated by Javan Sue M.D. on 03/19/2018 7:58 AM. Narrative constipation. Abdominal distention, cardiogenic shock Technique: 3 AP supine views of the abdomen were obtained. Comparison: No prior abdominal radiographs are available.. Findings: The examination is compromised by portable technique, body habitus, and respiratory motion. There is marked gaseous distention of the stomach. The bowel gas pattern is otherwise within normal limits. An intra-aortic balloon pump catheter has been placed via the right femoral approach. A gastric tube has its tip just below the gastroesophageal junction and sidehole at the level of the distal esophagus. There are osteophytes at multiple levels in lumbar spine. Procedure Note Interface, Radiant Results - 03/19/2018 8:04 AM CDT constipation. Abdominal distention, cardiogenic shock Technique: 3 AP supine views of the abdomen were obtained. Comparison: No prior abdominal radiographs are available.. Findings: The examination is compromised by portable technique, body habitus, and respiratory motion. There is marked gaseous distention of the stomach. The bowel gas pattern is otherwise within normal limits. An intra-aortic balloon pump catheter has been placed via the right femoral approach. A gastric tube has its tip just below the gastroesophageal junction and sidehole at the level of the distal esophagus. There are osteophytes at multiple levels in lumbar spine. IMPRESSION Gaseous distention of the stomach which is likely related to the facet resuscitation. High position of the gastric tube which should be advanced to a more effective position. Finalized by Javan Sue M.D. on 03/19/2018 8:01 AM. Dictated by Javan Sue M.D. on 03/19/2018 7:58 AM. * CULTURE-URINE W/SENSITIVITY (03/19/2018 1:55 AM) Component Value Ref Range Battery Name URINE CULTURE Specimen Description URINE Special Requests NONE Culture >100,000 organisms/ml KLEBSIELLA (formerly Enterobacter) AEROGENES (A) Report Status FINAL 03/21/2018 Organism ID >100,000 organisms/ml KLEBSIELLA (formerly Enterobacter) AEROGENES Specimen Performing Laboratory Urine MAIN LAB [address] [place] [address] Organism Antibiotic Method Susceptibility >100,000 organisms/ml Ampicillin [...] klebsiella (formerly INTERPRETATION INTERPRETATION enterobacter) aerogenes * UA REFLEX CULTURE LABEL (03/19/2018 1:55 AM) Component Value Ref Range UA Reflex Culture LAB LABEL Specimen Performing Laboratory MAIN LAB [address] [place] [address] * URINALYSIS MICROSCOPIC REFLEX TO CULTURE (03/19/2018 1:55 AM) Component Value Ref Range WBCs,UA NONE 0 - 2 /HPF RBCs,UA NONE 0 - 3 /HPF Comment,UA Urine submitted for reflex culture if criteria are met:WBC>10, positive nitrite and/or >=1+ leukocyte esterase. If quantity is not sufficient, an addendum will follow. Specimen Performing Laboratory MAIN LAB [address] [place] [address] * URINALYSIS DIPSTICK REFLEX TO CULTURE (03/19/2018 1:55 AM) Component Value Ref Range Color,UA LUZ Turbidity,UA 2+ (A) CLEAR-CLEAR Specific Odonnell-Urine 1.020 1.003 - 1.035 pH,UA 5.0 5.0 - 8.0 Protein,UA 2+ (A) NEG-NEG Glucose,UA 1+ (A) NEG-NEG Ketones,UA NEG NEG-NEG Bilirubin,UA NEG NEG-NEG Blood,UA 3+ (A) NEG-NEG Urobilinogen,UA NORMAL NORM-NORMAL Nitrite,UA NEG NEG-NEG Leukocytes,UA 2+ (A) NEG-NEG Urine Ascorbic Acid, UA NEG NEG-NEG Specimen Performing Laboratory MAIN LAB [address] [place] [address] * UREA NITROGEN-URINE RANDOM (03/19/2018 1:55 AM) Component Value Ref Range Urea Nitrogen 236 MG/DL Specimen Performing Laboratory [facility] MAIN [facility] [address] [place] [id number] * SODIUM-URINE RANDOM (03/19/2018 1:55 AM) Component Value Ref Range Sodium, Random 30 MMOL/L Specimen Performing Laboratory [facility] [address] [place] [address] * CREATININE-URINE RANDOM (03/19/2018 1:55 AM) Component Value Ref Range Creatinine, Random 111 MG/DL Specimen Performing Laboratory [facility] [address] [place] [address] * CHEST SINGLE VIEW (03/19/2018 1:34 AM) Specimen Performing Laboratory [facility] RAD RESULTS Impressions 1.Placement of lines and tubes as described above. 2.Mild cardiomegaly with diffuse opacification of the right hemithorax, which may reflect layering pleural fluid. 3.Patchy consolidation throughout the left lung which may reflect edema and/ or pneumonia. 4.Bibasilar atelectasis. Approved by Arturo Harris M.D. on 03/19/2018 10:10 AM By my electronic signature, I attest that I have personally reviewed the images for this examination and formulated the interpretations and opinions expressed in this report Finalized by Javan Sue M.D. on 03/19/2018 12:40 PM. Dictated by Arturo Harris M.D. on 03/19/2018 9:36 AM. Narrative CHEST SINGLE VIEW History: Cardiogenic shock. Comparison: No prior studies are available for comparison. Findings: Endotracheal tube is in place with the tip above the level of the clavicular heads. Gastric tube is in place which courses below the diaphragm with the tip not in the [id number]. Placement of an intra-aortic balloon pump catheter with the tip overlying the aortic knob. Right IJ central venous catheter is in place with the tip overlying the mid SVC. There is mild cardiomegaly. There is diffuse opacification of the right hemithorax. Bibasilar atelectasis. There is patchy consolidation throughout the left lung. No definite pneumothorax. Procedure Note Interface, Radiant Results - 03/19/2018 12:43 PM CDT CHEST SINGLE VIEW History: Cardiogenic shock. Comparison: No prior studies are available for comparison. Findings: Endotracheal tube is in place with the tip above the level of the clavicular heads. Gastric tube is in place which courses below the diaphragm with the tip not in the [id number]. Placement of an intra-aortic balloon pump catheter with the tip overlying the aortic knob. Right IJ central venous catheter is in place with the tip overlying the mid SVC. There is mild cardiomegaly. There is diffuse opacification of the right hemithorax. Bibasilar atelectasis. There is patchy consolidation throughout the left lung. No definite pneumothorax. IMPRESSION 1. Placement of lines and tubes as described above. 2. Mild cardiomegaly with diffuse opacification of the right hemithorax, which may reflect layering pleural fluid. 3. Patchy consolidation throughout the left lung which may reflect edema and/ or pneumonia. 4. Bibasilar atelectasis. Approved by Arturo Harris M.D. on 03/19/2018 10:10 AM By my electronic signature, I attest that I have personally reviewed the images for this examination and formulated the interpretations and opinions expressed in this report Finalized by Javan Sue M.D. on 03/19/2018 12:40 PM. Dictated by Arturo Harris M.D. on 03/19/2018 9:36 AM. * LACTIC ACID (BG - RAPID LACTATE) (03/19/2018 12:55 AM) Component Value Ref Range Lactic Acid,BG 2.6 (H) 0.5 - 2.0 MMOL/L Specimen Performing Laboratory MAIN LAB [address] [place] [id number] * BLOOD GASES, ARTERIAL (03/19/2018 12:55 AM) Component Value Ref Range pH-Arterial 7.32 (L) 7.35 - 7.45 pCO2-Arterial 36 35 - 45 MMHG pO2-Arterial 195 (H) 80 - 100 MMHG Base Deficit-Arterial 6.5 MMOL/L O2 Sat-Arterial 99.4 (H) 95 - 99 % [id number] 19.2 (L) 21 - 28 MMOL/L Specimen Performing Laboratory Blood, arterial - Blood [facility] [address] [place] [address] * LACTIC ACID (BG - RAPID LACTATE) (03/19/2018 12:30 AM) Component Value Ref Range Lactic Acid,BG 2.9 (H) 0.5 - 2.0 MMOL/L Specimen Performing Laboratory MAIN LAB [address] [place] [address] * PROCALCITONIN (03/19/2018 12:15 AM) Component Value Ref Range Procalcitonin 1.08 (H) <0.10 NG/ML Specimen Performing Laboratory MAIN LAB [address] [place] [address] * CREATINE KINASE-CPK (03/19/2018 12:15 AM) Component Value Ref Range Creatine Kinase 86 21 - 215 U/L Specimen Performing Laboratory MAIN LAB [address] [place] [id number] * FREE T4-FREE THYROXINE (03/19/2018 12:15 AM) Component Value Ref Range T4-Free 1.1 0.6 - 1.6 NG/DL Specimen Performing Laboratory MAIN LAB [address] [place] [address] * TROPONIN-I (03/19/2018 12:15 AM) Component Value Ref Range Troponin-I 0.02 0.0 - 0.05 NG/ML Specimen Performing Laboratory Blood MAIN LAB [address] [place] [address] * TSH WITH FREE T4 REFLEX (03/19/2018 12:15 AM) Component Value Ref Range TSH 6.450 (H) 0.35 - 5.00 MCU/ML Specimen Performing Laboratory Blood MAIN LAB [address] [place], [place] [id number] * BNP (B-TYPE NATRIURETIC PEPTI) (03/19/2018 12:15 AM) Component Value Ref Range B Type Natriuretic 350.0 (H) 0 - 100 PG/ML Peptide Specimen Performing Laboratory Blood MAIN LAB [address] [place], [place] [id number] * MAGNESIUM (03/19/2018 12:15 AM) Component Value Ref Range Magnesium 1.6 1.6 - 2.6 mg/dL Specimen Performing Laboratory Blood MAIN LAB [address] [place], [place] [id number] * COMPREHENSIVE METABOLIC PANEL (03/19/2018 12:15 AM) Component Value Ref Range Sodium 124 (L) 137 - 147 MMOL/L Potassium 4.0 3.5 - 5.1 MMOL/L Chloride 95 (L) 98 - 110 MMOL/L Glucose 292 (H) 70 - 100 MG/DL Blood Urea Nitrogen 45 (H) 7 - 25 MG/DL Creatinine 1.71 (H) 0.4 - 1.00 MG/DL Calcium 7.8 (L) 8.5 - 10.6 MG/DL Total Protein 5.5 (L) 6.0 - 8.0 G/DL Total Bilirubin 0.6 0.3 - 1.2 MG/DL Albumin 3.5 3.5 - 5.0 G/DL Alk Phosphatase 46 25 - 110 U/L AST (SGOT) 363 (H) 7 - 40 U/L CO2 17 (L) 21 - 30 MMOL/L ALT (SGPT) 390 (H) 7 - 56 U/L Anion Gap 12 3 - 12 eGFR Non 30 (L) >60 mL/min Comment: The eGFR is not validated for use in drug dosing adjustments.Continue to use estimated creatinine clearance per dosing reference text.Please contact the Clinical Pharmacist for questions. eGFR 36 (L) >60 mL/min Comment: The eGFR is not validated for use in drug dosing adjustments.Continue to use estimated creatinine clearance per dosing reference text.Please contact the Clinical Pharmacist for questions. Specimen Performing Laboratory Blood MAIN LAB [address] [place] [id number] * PROTIME INR (PT) (03/19/2018 12:15 AM) Component Value Ref Range INR 1.9 (H) 0.8 - 1.2 Specimen Performing Laboratory Blood MAIN LAB [address] [place] [address] * PTT (APTT) (03/19/2018 12:15 AM) Component Value Ref Range APTT 29.4 21.0 - 39.0 SEC Specimen Performing Laboratory Blood MAIN LAB [address] [place] [address] * CBC AND DIFF (03/19/2018 12:15 AM) [...] - 0.20 K/UL Specimen Performing Laboratory [facility] [address] [place] [address] * GENERAL RAD CHEST EXTERNAL IMAGING (03/18/2018) Narrative This order has been auto finalized and does not contain a result. in this encounter Visit Diagnoses Diagnosis Cardiogenic shock (HCC) - Primary Cardiogenic shock Diagnosis unknown Other unknown and unspecified cause of morbidity or mortality Acute respiratory failure with hypoxia (HCC) Acute respiratory failure Acute systolic heart failure (HCC) Acute systolic heart failure RYAN (acute kidney injury) (HCC) Acute kidney failure, unspecified Essential hypertension Unspecified essential hypertension Mixed hyperlipidemia Hyponatremia Hyposmolality and/or hyponatremia Acquired hypothyroidism Unspecified hypothyroidism Infection due to parainfluenza virus 3 Other specified viral infection, in conditions classified elsewhere and of unspecified site Junctional bradycardia Other specified cardiac dysrhythmias Morbid obesity with BMI of 45.0-49.9, adult (HCC) Morbid obesity Nonischemic cardiomyopathy (HCC) Other primary cardiomyopathies PAF (paroxysmal atrial fibrillation) (HCC) Atrial fibrillation Acute pulmonary edema (HCC) Acute edema of lung, unspecified Shock liver Acute and subacute necrosis of liver Type 2 diabetes mellitus with complication, with long-term current use of insulin (HCC) HLD (hyperlipidemia) Other and unspecified hyperlipidemia Type II diabetes mellitus (HCC) Type II or unspecified type diabetes mellitus without mention of complication , not stated as uncontrolled Hypothyroidism Unspecified hypothyroidism Pulmonary edema Pulmonary congestion and hypostasis Cardiorenal syndrome Unspecified hypertensive heart and kidney disease without heart failure and with chronic kidney disease stage I through stage IV, or unspecified Admitting Diagnoses Diagnosis cardiogenic shock Cardiogenic shock (HCC) Administered Medications Medication Order MAR Action Action Date Dose Rate Site acetaminophen (TYLENOL) tablet 650 mg Given 03/30/2018 650 mg 650 mg, Oral, EVERY 4 HOURS PRN, 15:17 CDT Starting Sun03/19/18 at 1634, Until Sun04/03/18 at 1259, Pain non-opioid: may be used alone or in combination with opioid analgesia, TOTAL ACETAMINOPHEN DOSE NOT TO EXCEED 4GM DAILY Given 04/01/2018 650 mg 02:34 CDT Given 04/01/2018 650 mg 11:22 CDT acetaZOLAMIDE (DIAMOX) injection 500 mg Given 03/25/2018 500 mg 500 mg, Intravenous, EVERY 8 HOURS, 6 13:42 CDT doses, First dose on Sun03/24/18 at 1400, Last dose on Sun03/26/18 at 0600 Given 03/25/2018 500 mg 22:09 CDT Given 03/26/2018 500 mg 06:11 CDT acetaZOLAMIDE (DIAMOX) injection 500 mg Given 03/30/2018 500 mg 500 mg, Intravenous, EVERY 8 HOURS, 2 15:17 CDT doses, First dose on Sun03/30/18 at 1415, Last dose on Sun03/30/18 at 2200 Given 03/30/2018 500 mg 21:47 CDT acetaZOLAMIDE (DIAMOX) injection 500 mg Given 03/31/2018 500 mg 500 mg, Intravenous, EVERY 8 HOURS, 2 08:44 CDT doses, First dose on Sun03/31/18 at 0800, Last dose on Sun03/31/18 at 1400 Given 03/31/2018 500 mg 15:28 CDT acetaZOLAMIDE (DIAMOX) tablet 500 mg Given 03/26/2018 500 mg 500 mg, Oral, TWICE DAILY, First dose on 20:12 CDT Sun03/26/18 at 2100, Until Discontinued acetaZOLAMIDE (DIAMOX) tablet 500 mg Given 03/27/2018 500 mg 500 mg, Oral, EVERY 8 HOURS, 3 doses, 06:20 CDT First dose on Sun03/27/18 at 0600, Last dose on Sun03/27/18 at 2200 Given 03/27/2018 500 mg 14:26 CDT Given 03/27/2018 500 mg 21:27 CDT aluminum/magnesium hydroxide (MAALOX) oral suspension 30 mL 30 mL, Oral, EVERY 4 HOURS PRN, Starting Sun03/19/18 at 1634, Until Sun04/03/18 at 1259, Indigestion/Heartburn amiodarone (CORDARONE) 150 mg in Given 03/21/2018 150 mg 600 mL/hr dextrose 5% (D5W) 100 mL IVPB (load) 16:20 CDT 150 mg, Intravenous, 100 mL, Administer over 10 Minutes, ONCE, 1 dose, Anuradha 03/21/18 at 1630, SPECIAL TUBING REQUIRED Bolus Dose amiodarone (CORDARONE) 150 mg in Given 03/26/2018 150 mg 600 mL/hr dextrose 5% (D5W) 100 mL IVPB (load) 16:02 CDT 150 mg, Intravenous, 100 mL, Administer over 10 Minutes, ONCE, 1 dose, [facility] 03/26/18 at 1500, SPECIAL TUBING REQUIRED Bolus Dose amiodarone (CORDARONE) 360 mg in Dose/Rate 03/25/2018 0.5 mg/min 17 mL/ hr dextrose, iso-osm 200 mL infusion Verify 04:00 CDT 0.5-1 mg/min (16.6667-33.3333 mL/hr, rounded to 17-33 mL/hr) 200 mL, at 17-33 mL/hr, Intravenous, TITRATE DIRECTED , Starting [facility] 03/21/18 at 1630, Until 03/25/18 at 1118, SPECIAL TUBING REQUIRED Std conc=1.8mg/mL. Initiate infusion at 1mg/min for the first 6 hours, followed by 0.5mg/min maint rate. Given - New Bag 03/25/2018 0.5 mg/min 17 mL/hr 06:02 CDT Dose/Rate Verify 03/25/2018 0.5 mg/min 17 mL/hr 08:00 CDT amiodarone (CORDARONE) 360 mg in Dose/Rate 03/27/2018 0.5 mg/min 17 mL/ hr dextrose, iso-osm 200 mL infusion Verify 00:00 CDT 0.5-1 mg/min (16.6667-33.3333 mL/hr, rounded to 17-33 mL/hr) 200 mL, at 17-33 mL/hr, Intravenous, TITRATE DIRECTED , Starting [facility] 03/26/18 at 1500, Until Sun03/27/18 at 1646, SPECIAL TUBING REQUIRED Std conc=1.8mg/mL. Initiate infusion at 1mg/min for the first 6 hours, followed by 0.5mg/min maint rate. Dose/Rate Verify 03/27/2018 0.5 mg/min 17 mL/hr 04:00 CDT Given - New Bag 03/27/2018 0.5 mg/min 17 mL/hr 08:21 CDT amiodarone (CORDARONE) tablet 400 mg Given 03/31/2018 400 mg 400 mg, Oral, TWICE DAILY, First dose on 08:44 CDT 03/27/18 at 2100, Until Discontinued Given 03/31/2018 400 mg 20:27 CDT Given 04/01/2018 400 mg 08:27 CDT amiodarone (CORDARONE) tablet 400 mg Given 04/02/2018 400 mg 400 mg, Oral, DAILY, First dose on Sun 09:52 CDT 04/02/18 at 0900, Until Discontinued Given 04/03/2018 400 mg 09:42 CDT apixaban (ELIQUIS) tablet 5 mg Given 04/02/2018 5 mg 5 mg, Oral, TWICE DAILY, First dose on 09:52 CDT 03/23/18 at 1115, Until Discontinued, NOTE: This is a HIGH ALERT Medication. Given 04/02/2018 5 mg 21:35 CDT Given 04/03/2018 5 mg 09:43 CDT aspirin chewable tablet 81 mg Given 04/01/2018 81 mg 81 mg, Oral, DAILY, First dose on Mon 16:51 CDT 04/01/18 at 1700, Until Discontinued Given 04/02/2018 81 mg 09:54 CDT Given 04/03/2018 81 mg 09:44 CDT atorvastatin (LIPITOR) tablet 40 mg Given 04/01/2018 40 mg 40 mg, Oral, DAILY, First dose on Mon 16:51 CDT 04/01/18 at 1700, Until Discontinued Given 04/02/2018 40 mg 09:54 CDT Given 04/03/2018 40 mg 09:42 CDT bisacodyl (DULCOLAX) rectal suppository Given 03/21/2018 10 mg 10 mg 10:05 CDT 10 mg, Rectal, ONCE, 1 dose, Anuradha 03/21/18 at 0930, Hold for loose stools bisacodyl (DULCOLAX) rectal suppository Given 03/21/2018 10 mg 10 mg 11:30 CDT 10 mg, Rectal, ONCE, 1 dose, Anuradha 03/21/18 at 1030, Hold for loose stools bumetanide (BUMEX) 24 mg in empty IV bag Dose/Rate 03/26/2018 0.5 mg/hr 2 mL/hr 96 mL IV drip (std conc) Verify 00:00 CDT Intravenous, 0.5 mg/hr (2 mL/hr), 96 mL, at 2 mL/hr, CONTINUOUS, Starting Anuradha 03/21/18 at 1030, Until Sun03/26/18 at 1203, Initiate at 1 mg/hr Titrate to keep: Do not titrate Std Conc=0.25mg/ml PROTECT FROM LIGHT Dose/Rate Verify 03/26/2018 0.5 mg/hr 2 mL/hr 04:00 CDT Dose/Rate Verify 03/26/2018 0.5 mg/hr 2 mL/hr 08:00 CDT bumetanide (BUMEX) injection 2 mg Given 03/21/2018 2 mg 2 mg, Intravenous, ONCE, 1 dose, Anuradha 10:33 CDT 03/21/18 at 1030, PROTECT FROM LIGHT bumetanide (BUMEX) tablet 2 mg Given 03/29/2018 2 mg 2 mg, Oral, DAILY BEFORE DINNER, First 18:15 CDT dose on Sun03/29/18 at 1700, Until Discontinued bumetanide (BUMEX) tablet 2 mg Given 03/30/2018 2 mg 2 mg, Oral, TWICE DAILY, First dose on 08:29 CDT 03/30/18 at 0900, Until Discontinued Given 03/30/2018 2 mg 18:27 CDT Given 03/31/2018 2 mg 08:44 CDT bumetanide (BUMEX) tablet 2 mg Given 04/01/2018 2 mg 2 mg, Oral, DAILY, First dose on Sun 08:27 CDT 04/01/18 at 0900, Until Discontinued Given 04/02/2018 2 mg 09:52 CDT bumetanide (BUMEX) tablet 4 mg Given 03/28/2018 4 mg 4 mg, Oral, TWICE DAILY, First dose on 08:24 CDT Sun03/26/18 at 1700, Until Discontinued Given 03/28/2018 4 mg 18:16 CDT Given 03/29/2018 4 mg 09:17 CDT carboxymethylcellulose (REFRESH PLUS) Given 03/21/2018 1 drop 0.5 % ophthalmic solution 1 drop 13:03 CDT 1 drop, Both Eyes, NEEDED, Starting Anuradha 03/21/18 at 1314, Until Sun04/03/18 at 1259, Dry Eyes, Irritated Eyes Given 03/21/2018 1 drop 15:35 CDT Given 03/22/2018 1 drop 11:40 CDT cefepime (MAXIPIME) 1 g/50 ml Given 03/19/2018 1 g 100 mL/hr iso-osmotic IVPB 21:07 CDT 1 g, Intravenous, 50 mL, Administer over 30 Minutes, EVERY 8 HOURS, First dose on Sun03/19/18 at 2130, Until Discontinued Given 03/20/2018 1 g 100 mL/hr 06:03 CDT cefepime (MAXIPIME) 2 g/100 ml Given 03/22/2018 2 g 200 mL/hr iso-osmotic IVPB 05:28 CDT 2 g, Intravenous, 100 mL, Administer over 30 Minutes, EVERY 24 HOURS, First dose on Sun03/21/18 at 0600, Until Discontinued Downtime Given 03/23/2018 2 g 200 mL/hr 06:00 CDT Given 03/24/2018 2 g 200 mL/hr 05:35 CDT chlorhexidine gluconate (PERIDEX) 0.12 % Given 03/21/2018 15 mL solution 15 mL 20:17 CDT 15 mL, Swish & Spit, TWICE DAILY, First dose on Sun03/19/18 at 0945, Until Discontinued Given 03/22/2018 15 mL 08:06 CDT Given 03/22/2018 15 mL 20:20 CDT chlorothiazide injection 500 mg Given 03/19/2018 500 mg 500 mg, Intravenous, ONCE, 1 dose, e 17:53 CDT 03/19/18 at 1500 chlorothiazide injection 500 mg Given 03/20/2018 500 mg 500 mg, Intravenous, ONCE, 1 dose, Wed 10:39 CDT 03/20/18 at 1015 chlorothiazide injection 500 mg Given 03/20/2018 500 mg 500 mg, Intravenous, ONCE, 1 dose, Wed 22:25 CDT 03/20/18 at 2215 chlorothiazide injection 500 mg Given 03/21/2018 500 mg 500 mg, Intravenous, ONCE, 1 dose, Anuradha 10:33 CDT 03/21/18 at 1030 dexmedetomidine (PRECEDEX) 400 mcg in Dose/Rate 03/19/2018 1.2 34.8 mL/ hr sodium chloride 0.9% (NS) 100 mL IV Change 08:42 CDT mcg/kg/hr infusion 0.2-1.4 mcg/kg/hr 116 kg (5.8-40.6 mL/hr) 100 mL, at 5.8-40.6 mL/hr, Intravenous, TITRATE DIRECTED , Starting Sun03/18/18 at 2330, Until Sun03/20/18 at 0951, -Initiate at 1.5 mcg/kg/hr and maintain for 30 minutes -Titrate to keep: RASS of 0 to -2 a.) Titrate infusion in increments of 0.1 mcg/kg/hour at 5 minute intervals until goal sedation level achieved or maintenance exceeds 1.0 mcg/kg/hr b.) If HR < 60 or SBP < 90 mmHg hold for 10 minutes then restart at dose reduced by 0.3 mcg/kg/min c.) Notify physician for persistent hypotension (SBP < 90 mmHg) or bradycardia (HR < 50) over 15 minutes d.) For breakthrough agitation NOTIFY PHYSICIAN and consider bolus of 1 mcg/kg over 20 min if HR and BP are acceptable. e.) Notify physician if maintenance exceeds 1 mcg/kg/hr -Taper agent continuously to lowest effective dose to achieve desired level of sedation keeping patient calm and able to participate in care. Given - New Bag 03/19/2018 1.2 34.8 mL/hr 09:49 CDT mcg/kg/hr Dose/Rate Change 03/19/2018 1.4 40.6 mL/hr 10:25 CDT mcg/kg/hr DEXTROSE 50 % IN WATER (D50W) IV SYRG Given 03/25/2018 25 mL (Cabinet Override) 03:01 CDT NOW, 1 dose, Sun03/25/18 at 0300, Created by cabinet override NOTE: This is a HIGH ALERT Medication. digoxin (LANOXIN) injection 125 mcg Given 03/29/2018 125 mcg 125 mcg, Intravenous, DAILY, First dose 09:28 CDT on Sun03/27/18 at 0900, Until Discontinued, Hold for heart rate < 60 bpm Given 03/30/2018 125 mcg 08:29 CDT Given 03/31/2018 125 mcg 08:44 CDT digoxin (LANOXIN) injection 250 mcg Given 03/21/2018 250 mcg 250 mcg, Intravenous, ONCE, 1 dose, Anuradha 17:51 CDT 03/21/18 at 1800 digoxin (LANOXIN) injection 250 mcg Given 03/22/2018 250 mcg 250 mcg, Intravenous, EVERY 6 HOURS, 2 20:21 CDT doses, First dose on Sun03/22/18 at 2015, Last dose on Sun03/23/18 at 0215, Hold for heart rate < 100 bpm Given 03/23/2018 250 mcg 01:58 CDT digoxin (LANOXIN) injection 250 mcg Given 03/25/2018 250 mcg 250 mcg, Intravenous, EVERY 6 HOURS, 2 13:40 CDT doses, First dose on Sun03/25/18 at 1230, Last dose on Sun03/25/18 at 1800, Hold for heart rate < 60 bpm For two doses Given 03/25/2018 250 mcg 19:10 CDT digoxin (LANOXIN) injection 250 mcg Given 03/26/2018 250 mcg 250 mcg, Intravenous, DAILY, First dose 10:38 CDT on Sun03/26/18 at 0900, Until Discontinued, Hold for heart rate < 60 bpm digoxin (LANOXIN) tablet 62.5 mcg Given 04/03/2018 62.5 mcg 62.5 mcg, Oral, DAILY, First dose on Sun 09:43 CDT 04/01/18 at 1030, Until Discontinued, Hold for heart rate < 60 bpm NOTE: PHARMACOKINETIC MONITORING DOBUTamine (DOBUTREX) 1,000 mg in sodium Dose/Rate 03/19/2018 5 mcg/kg/ min 8.7 mL/hr chloride 0.9% (NS) 250 mL IV drip (std Verify 04:00 CDT conc) 1-20 mcg/kg/min 116 kg (1.74-34.8 mL/hr, rounded to 1.7-34.8 mL/hr) 250 mL, at 1.7-34.8 mL/hr, Intravenous, TITRATE DIRECTED , Starting Sun03/18/18 at 2345, Until Sun03/19/18 at 1057, Initiate at 10 mcg/kg/min Titrate to keep: HR > 60 Call MD for ventricular ectopy. Std Ubvd=6608 mcg/ml NOTE: For weight-based dosing, use patient dosing weight. Dose/Rate Verify 03/19/2018 5 mcg/kg/min 8.7 mL/hr 08:43 CDT Dose/Rate Verify 03/19/2018 5 mcg/kg/min 8.7 mL/hr 12:00 CDT DOBUTamine (DOBUTREX) 1,000 mg in sodium Dose/Rate 03/28/2018 2 mcg/kg/ min 3.5 mL/hr chloride 0.9% (NS) 250 mL IV drip (std Verify 19:17 CDT conc) 3-4 mcg/kg/min 116 kg (5.22-6.96 mL/hr, rounded to 5.2-7 mL/hr) 250 mL, at 5.2-7 mL/hr, Intravenous, CONTINUOUS, Starting e 03/19/18 at 1100, Until Sun03/31/18 at 1018, Infuse at 4 mcg/kg/min now; decrease in four hours. Call MD for ventricular ectopy. Std Dnqr=2342 mcg/ml NOTE: For weight-based dosing, use patient dosing weight. Given - New Bag 03/29/2018 2 mcg/kg/min 3.5 mL/hr 00:19 CDT Dose/Rate Verify 03/30/2018 2 mcg/kg/min 3.5 mL/hr 21:37 CDT DOBUTamine (DOBUTREX) 1,000 mg in sodium Given - New 03/31/2018 1 mcg/kg/ min 1.5 mL/hr chloride 0.9% (NS) 250 mL IV drip (std Bag 11:02 CDT conc) 1 mcg/kg/min 96.7 kg (1.4505 mL/hr, rounded to 1.5 mL/hr) 250 mL, at 1.5 mL/hr, Intravenous, CONTINUOUS, Starting Sun03/31/18 at 1030, Until Sun04/01/18 at 1444, Infuse at 1 mcg/kg/min now; DO NOT titrate. Call the fellow / Resident marketing content specialist with any concerns Given - New Bag 04/01/2018 1 mcg/kg/min 1.5 mL/hr 02:34 CDT DOPamine 400 mg/D5W 250 mL infusion (std Dose/Rate 03/19/2018 2 mcg/kg/ min 8.7 mL/hr conc)(premade) Change 13:38 CDT 1-20 mcg/kg/min 116 kg (4.35-87 mL/hr, rounded to 4.4-87 mL/hr) 250 mL, at 4.4-87 mL/hr, Intravenous, TITRATE DIRECTED , Starting 03/18/18 at 2330, Until Sun03/19/18 at 1057, Initiate at 20 mcg/kg/min Titrate to keep: MAP > 65 Std Yqxe=1738 mcg/ml. For weight-based dosing, use patient dosing weight. Dose/Rate Verify 03/19/2018 2 mcg/kg/min 8.7 mL/hr 17:30 CDT Dose/Rate Verify 03/19/2018 1 mcg/kg/min 4.4 mL/hr 18:14 CDT FENTANYL CITRATE (PF) 50 MCG/ML IJ SOLN (Cabinet Override) NOW, 1 dose, Sun03/19/18 at 0945, Created by cabinet override fentaNYL citrate PF (SUBLIMAZE) 1,000 Dose/Rate 03/22/2018 25 mcg/hr 2.5 mL/hr mcg in dextrose 5% (D5W) infusion (std Verify 00:11 CDT conc) 10-200 mcg/hr (1-20 mL/hr) 100 mL, at 1-20 mL/hr, Intravenous, TITRATE DIRECTED , Starting Sun03/19/18 at 0945, Until 03/23/18 at 0726, Loading dose 50 mcg (50-150 mcg), administer slowly Initiate at 25 mcg/hr Titrate to keep: Pain score of <=4 Bolus 25 mcg (25-50 mcg) IV and/or increase infusion by 5-20 mcg/hr prn breakthrough pain. Recommend titrate every 15 minutes as needed. Std Conc=10mcg/mL. NOTE: This is a HIGH ALERT Medication. Dose/Rate Verify 03/22/2018 25 mcg/hr 2.5 mL/hr 04:00 CDT Dose/Rate Verify 03/22/2018 25 mcg/hr 2.5 mL/hr 07:16 CDT fentaNYL citrate PF (SUBLIMAZE) Given 03/19/2018 50 mcg injection 50 mcg 10:26 CDT 50 mcg, Intravenous, ONCE, 1 dose, 03/19/18 at 1000 fentaNYL citrate PF (SUBLIMAZE) Given 03/19/2018 50 mcg injection 50 mcg 09:46 CDT 50 mcg, Intravenous, ONCE, 1 dose, 03/19/18 at 1030 fentaNYL citrate PF (SUBLIMAZE) Given 03/19/2018 50 mcg injection 50 mcg 10:33 CDT 50 mcg, Intravenous, ONCE, 1 dose, 03/19/18 at 1045 fentaNYL citrate PF (SUBLIMAZE) Given 03/26/2018 50 mcg injection 50-100 mcg 14:10 CDT 50-100 mcg, Intravenous, ONCE, 1 dose, 03/26/18 at 1430 furosemide (LASIX) 500 mg/ 50 mL IV drip Given - New 03/19/2018 5 mg/hr 0.5 mL/hr (max conc) Bag 00:43 CDT Intravenous, 5 mg/hr (0.5 mL/hr), 50 mL, at 0.5 mL/hr, CONTINUOUS, Starting Sun03/18/18 at 2330, Until Sun03/19/18 at 0139, Initiate at 10 mg/hr Titrate to keep: Do NOT titrate Max Conc=10mg/ml PROTECT FROM LIGHT - - If medication is in a syringe, the Alaris syringe module MUST be used. DO NOT administer by IV push. - - Dose/Rate Verify 03/19/2018 5 mg/hr 0.5 mL/hr 01:40 CDT furosemide (LASIX) 500 mg/ 50 mL IV drip Dose/Rate 03/21/2018 20 mg/hr 2 mL/hr (max conc) Verify 00:00 CDT Intravenous, 20 mg/hr (2 mL/hr), 50 mL, at 2 mL/hr, CONTINUOUS, Starting Sun03/19/18 at 0800, Until Anuradha 03/21/18 at 1018, Initiate at 20 mg/hr Max Conc=10mg/ml PROTECT FROM LIGHT - - If medication is in a syringe, the Alaris syringe module MUST be used. DO NOT administer by IV push. - - Given - New Bag 03/21/2018 20 mg/hr 2 mL/hr 02:53 CDT Dose/Rate Verify 03/21/2018 20 mg/hr 2 mL/hr 08:00 CDT furosemide (LASIX) injection 40 mg Given 03/19/2018 40 mg 40 mg, Intravenous, ONCE, 1 dose, Tue 08:05 CDT 03/19/18 at 0800, PROTECT FROM LIGHT heparin (porcine) 20,000 Units in Given - New 03/20/2018 1,600 20 mL/ hr dextrose 5% (D5W) 250 mL IV infusion Bag 02:11 CDT Units/hr (dbl conc) 0-2,000 Units/hr (0-25 mL/hr) 250 mL, at 0-25 mL/hr, Intravenous, TITRATE DIRECTED , Starting Sun03/19/18 at 1100, Until Sun03/20/18 at 1304, - Follow Heparin Infusion Scale - NO ADJUSTMENT BOLUS Heparin Infusion Scale - NO ADJUSTMENT BOLUS aPTT NO Bolus Dose Pause Infusion Infusion Rate Repeat (secs) (minutes) (units/hr) <65 NO BOLUS 0 Increase 200 units/hr in 6 hours 65-74 NO BOLUS 0 Increase 100 units/hr in 6 hours 75-120 NO BOLUS 0 No Change in 6 hours/qAM* 121-129 NO BOLUS 60 Decrease 100 units/hr in 6 hours 130-150 NO BOLUS 90 Decrease 200 units/hr in 6 hours >150 NO BOLUS 90 Decrease 200 units/hr ++ * After 2 consecutive therapeutic aPTT, go to q AM ++ After 90 minutes, restart heparin at reduced rate AND draw an aPTT. If aPTT remains greater than 120 follow protocol (pause infusion for specified time then decrease infusion rate per protocol), if aPTT is 120 or less continue with reduced rate. Redraw aPTT in 6 hrs and follow protocol. ====Dbl conc=80units/mL. NOTE: This is a HIGH ALERT Medication. Dose/Rate Verify 03/20/2018 1,600 20 mL/hr 04:16 CDT Units/hr Dose/Rate Verify 03/20/2018 1,600 20 mL/hr 07:20 CDT Units/hr heparin (porcine) 20,000 Units in sodium Infusion 03/21/2018 1,600 20 mL/hr chloride 0.9% (NS) 250 mL IV infusion Restarted 00:00 CDT Units/hr (dbl conc) 0-2,000 Units/hr (0-25 mL/hr) 250 mL, at 0-25 mL/hr, Intravenous, TITRATE DIRECTED , Starting 03/20/18 at 1315, Until Anuradha 03/21/18 at 1019, - Follow Heparin Infusion Scale - NO ADJUSTMENT BOLUS Heparin Infusion Scale - NO ADJUSTMENT BOLUS aPTT NO Bolus Dose Pause Infusion Infusion Rate Repeat (secs) (minutes) (units/hr) <65 NO BOLUS 0 Increase 200 units/hr in 6 hours 65-74 NO BOLUS 0 Increase 100 units/hr in 6 hours 75-120 NO BOLUS 0 No Change in 6 hours/qAM* 121-129 NO BOLUS 60 Decrease 100 units/hr in 6 hours 130-150 NO BOLUS 90 Decrease 200 units/hr in 6 hours >150 NO BOLUS 90 Decrease 200 units/hr ++ * After 2 consecutive therapeutic aPTT, go to q AM ++ After 90 minutes, restart heparin at reduced rate AND draw an aPTT. If aPTT remains greater than 120 follow protocol (pause infusion for specified time then decrease infusion rate per protocol), if aPTT is 120 or less continue with reduced rate. Redraw aPTT in 6 hrs and follow protocol. ====Dbl conc=80units/mL. NOTE: This is a HIGH ALERT Medication. Dose/Rate Change 03/21/2018 1,700 21.3 mL/hr 07:27 CDT Units/hr Given - New Bag 03/21/2018 1,700 21.3 mL/hr 10:02 CDT Units/hr heparin (porcine) 20,000 Units in sodium Dose/Rate 03/23/2018 1,400 17.5 mL/hr chloride 0.9% (NS) 250 mL IV infusion Verify 00:14 CDT Units/hr (dbl conc) 0-2,000 Units/hr (0-25 mL/hr) 250 mL, at 0-25 mL/hr, Intravenous, TITRATE DIRECTED , Starting Anuradha 03/21/18 at 1845, Until 03/23/18 at 1105, - Follow Heparin Infusion Scale - NO ADJUSTMENT BOLUS Heparin Infusion Scale - NO ADJUSTMENT BOLUS aPTT NO Bolus Dose Pause Infusion Infusion Rate Repeat (secs) (minutes) (units/hr) <65 NO BOLUS 0 Increase 200 units/hr in 6 hours 65-74 NO BOLUS 0 Increase 100 units/hr in 6 hours 75-120 NO BOLUS 0 No Change in 6 hours/qAM* 121-129 NO BOLUS 60 Decrease 100 units/hr in 6 hours 130-150 NO BOLUS 90 Decrease 200 units/hr in 6 hours >150 NO BOLUS 90 Decrease 200 units/hr ++ * After 2 consecutive therapeutic aPTT, go to q AM ++ After 90 minutes, restart heparin at reduced rate AND draw an aPTT. If aPTT remains greater than 120 follow protocol (pause infusion for specified time then decrease infusion rate per protocol), if aPTT is 120 or less continue with reduced rate. Redraw aPTT in 6 hrs and follow protocol. ====Dbl conc=80units/mL. NOTE: This is a HIGH ALERT Medication. Given - New Bag 03/23/2018 1,400 17.5 mL/hr 04:04 CDT Units/hr Dose/Rate Verify 03/23/2018 1,400 17.5 mL/hr 07:26 CDT Units/hr heparin (porcine) 20,000 units/D5W 500 Given - New 03/19/2018 1,700 42.5 mL/hr mL infusion (std conc)(premade) Bag 00:36 CDT Units/hr 0-2,000 Units/hr (0-50 mL/hr) 500 mL, at 0-50 mL/hr, Intravenous, TITRATE DIRECTED , Starting Sun03/18/18 at 2330, Until Sun03/19/18 at 1057, - Weight-Based Heparin Protocol - Ischemic Stroke - NO INITIAL IV BOLUS - Initial IV infusion 15 units/kg/hr. Initial IV infusion not to exceed 1,700 units/hr - Follow Heparin Infusion Scale - NO ADJUSTMENT BOLUS Heparin Infusion Scale - NO ADJUSTMENT BOLUS aPTT NO Bolus Dose Pause Infusion Infusion Rate Repeat (secs) (minutes) (units/hr) <65 NO BOLUS 0 Increase 200 units/hr in 6 hours 65-74 NO BOLUS 0 Increase 100 units/hr in 6 hours 75-120 NO BOLUS 0 No Change in 6 hours/qAM* 121-129 NO BOLUS 60 Decrease 100 units/hr in 6 hours 130-150 NO BOLUS 90 Decrease 200 units/hr in 6 hours >150 NO BOLUS 90 Decrease 200 units/hr ++ * After 2 consecutive therapeutic aPTT, go to q AM ++ After 90 minutes, restart heparin at reduced rate AND draw an aPTT. If aPTT remains greater than 120 follow protocol (pause infusion for specified time then decrease infusion rate per protocol), if aPTT is 120 or less continue with reduced rate. Redraw aPTT in 6 hrs and follow protocol. ====NOTE: This is a HIGH ALERT Medication. Dose/Rate Change 03/19/2018 1,700 42.5 mL/hr 07:57 CDT Units/hr Given - New Bag 03/19/2018 1,700 42.5 mL/hr 10:37 CDT Units/hr heparin (porcine) injection 7,500 Units Given 03/21/2018 7,500 Units Abdomen:LUQ 0.75 mL 13:04 CDT 7,500 Units, Subcutaneous, EVERY 8 HOURS, First dose on Sun03/21/18 at 1230, Until Discontinued, NOTE: This is a HIGH ALERT Medication. insulin aspart U-100 (NOVOLOG FLEXPEN) Given 03/19/2018 4 Units Abdomen:RLQ injection PEN 0-14 Units 18:00 CDT 0-14 Units, Subcutaneous, BEFORE MEALS AND AT BEDTIME, First dose on Sun03/19/18 at 0700, Until Discontinued, -POC glucose 140-180mg/dL at , , administer 2 units insulin, at 21, 03* administer 0 units. -POC glucose 181-220mg/dL at , , administer 4 units insulin, at 21, 03* administer 2 units. -POC glucose 221-260mg/dL at , , administer 6 units insulin, at 21, 03* administer 4 units. -POC glucose 261-300mg/dL at , , administer 8 units insulin, at 21, 03* administer 6 units. -POC glucose 301-350mg/dL at , , administer 10 units insulin, at 21, 03* administer 8 units. -POC glucose 351-400mg/dL at , , administer 12 units insulin, at 21, 03* administer 10 units. -POC glucose >400mg/dL at , , administer 14 units insulin, at 21, 03* administer 12 units. *only if ordered 5x's daily For POCT glucose >350mg/dL give correction bolus and recheck POCT glucose in 2 hours. If POCT glucose at 2 hours >300mg/dL call physician for further orders. For patients who are not eating meals, continue to administer the appropriate correction factor. NOTE: This is a HIGH ALERT Medication. Given 03/19/2018 4 Units Arm, Left 21:39 CDT Given 03/20/2018 6 Units Arm, Right 06:14 CDT insulin aspart U-100 (NOVOLOG FLEXPEN) Given 03/25/2018 8 Units Abdomen:RLQ injection PEN 0-14 Units 11:45 CDT 0-14 Units, Subcutaneous, FIVE TIMES DAILY, First dose on 03/25/18 at 1200, Until Discontinued, -POC glucose 140-180mg/dL at , , administer 2 units insulin, at 21, 03* administer 0 units. -POC glucose 181-220mg/dL at , , administer 4 units insulin, at 21, 03* administer 2 units. -POC glucose 221-260mg/dL at , , administer 6 units insulin, at , 03* administer 4 units. -POC glucose 261-300mg/dL at , , administer 8 units insulin, at , 03* administer 6 units. -POC glucose 301-350mg/dL at , , administer 10 units insulin, at , 03* administer 8 units. -POC glucose 351-400mg/dL at , , administer 12 units insulin, at , 03* administer 10 units. -POC glucose >400mg/dL at , , administer 14 units insulin, at , 03* administer 12 units. *only if ordered 5x's daily For POCT glucose >350mg/dL give correction bolus and recheck POCT glucose in 2 hours. If POCT glucose at 2 hours >300mg/dL call physician for further orders. For patients who are not eating meals, continue to administer the appropriate correction factor. NOTE: This is a HIGH ALERT Medication. insulin aspart U-100 (NOVOLOG FLEXPEN) Given 04/01/2018 6 Units Arm, Right injection PEN 0-14 Units 17:42 CDT 0-14 Units, Subcutaneous, BEFORE MEALS AND AT BEDTIME, First dose on Sun03/28/18 at 0815, Until Discontinued, -POC glucose 140-180mg/dL at , , administer 2 units insulin, at 21, 03* administer 0 units. -POC glucose 181-220mg/dL at , , administer 4 units insulin, at 21, 03* administer 2 units. -POC glucose 221-260mg/dL at administer 6 units insulin, at , * administer 4 units. -POC glucose 261-300mg/dL at administer 8 units insulin, at , * administer 6 units. -POC glucose 301-350mg/dL at administer 10 units insulin, at , * administer 8 units. -POC glucose 351-400mg/dL at administer 12 units insulin, at , * administer 10 units. -POC glucose >400mg/dL at administer 14 units insulin, at * administer 12 units. *only if ordered 5x's daily For POCT glucose >350mg/dL give correction bolus and recheck POCT glucose in 2 hours. If POCT glucose at 2 hours >300mg/dL call physician for further orders. For patients who are not eating meals, continue to administer the appropriate correction factor. NOTE: This is a HIGH ALERT Medication. Given 04/02/2018 6 Units Arm, Left 14:08 CDT Given 04/02/2018 8 Units Arm, Right 21:37 CDT insulin aspart U-100 (NOVOLOG FLEXPEN) Given 03/26/2018 8 Units Arm, Right injection PEN 0-28 Units 21:07 CDT 0-28 Units, Subcutaneous, FIVE TIMES DAILY, First dose on Sun03/25/18 at 1700, Until Discontinued, -POC glucose 140-180mg/dL at administer 4 units insulin, at , * administer 0 units. -POC glucose 181-220mg/dL at administer 8 units insulin, at , * administer 4 units. -POC glucose 221-260mg/dL at administer 12 units insulin, at , * administer 8 units. -POC glucose 261-300mg/dL at administer 16 units insulin, at , * administer 12 units. -POC glucose 301-350mg/dL at administer 20 units insulin, at , 03* administer 16 units. -POC glucose 351-400mg/dL at , administer 24 units insulin, at , 03* administer 20 units. -POC glucose >400mg/dL at administer 28 units insulin, at 21, 03* administer 24 units. *only if ordered 5x's daily For POCT glucose >350mg/dL give correction bolus and recheck POCT glucose in 2 hours. If POCT glucose at 2 hours >300mg/dL call physician for further orders. For patients who are not eating meals, continue to administer the appropriate correction factor. NOTE: This is a HIGH ALERT Medication. Given 03/27/2018 16 Units Arm, Left 16:50 CDT Given 03/27/2018 12 Units Abdomen:LLQ 20:39 CDT insulin aspart U-100 (NOVOLOG FLEXPEN) Given 04/01/2018 10 Units Arm, Right injection PEN 10 Units 13:31 CDT 10 Units, Subcutaneous, TWICE DAILY WITH MEALS, First dose on Sun04/01/18 at 0800, Until Discontinued, Hold if NPO for procedure, unable to eat, or if FSBS < 70 mg/dL Give at start of meal. QD w breakfast and lunch NOTE: This is a HIGH ALERT Medication. Given 04/02/2018 10 Units Arm, Left 09:54 CDT Given 04/02/2018 10 Units Arm, Left 14:08 CDT insulin aspart U-100 (NOVOLOG FLEXPEN) Given 04/01/2018 12 Units Arm, Right injection PEN 12 Units 17:41 CDT 12 Units, Subcutaneous, DAILY WITH DINNER, First dose on Sun04/01/18 at 1700, Until Discontinued, Give scheduled doses of Insulin Aspart with meals/food. NOTE: Rapid acting insulins should be given with food/meal. Use caution when patient is NPO. NOTE: This is a HIGH ALERT Medication. Given 04/02/2018 12 Units Arm, Left 19:39 CDT insulin aspart U-100 (NOVOLOG FLEXPEN) injection PEN 12 Units 12 Units, Subcutaneous, DAILY WITH DINNER, First dose on Sun04/03/18 at 1700, Until Discontinued, Give scheduled doses of Insulin Aspart with meals/food. NOTE: Rapid acting insulins should be given with food/meal. Use caution when patient is NPO. NOTE: This is a HIGH ALERT Medication. insulin aspart U-100 (NOVOLOG FLEXPEN) Given 04/03/2018 14 Units Abdomen:RLQ injection PEN 14 Units 08:18 CDT 14 Units, Subcutaneous, TWICE DAILY WITH MEALS, First dose on Sun04/03/18 at 0800, Until Discontinued, Hold if NPO for procedure, unable to eat, or if FSBS < 70 mg/dL Give at start of meal. QD w breakfast and lunch NOTE: This is a HIGH ALERT Medication. insulin aspart U-100 (NOVOLOG FLEXPEN) Given 03/28/2018 18 Units Arm, Left injection PEN 18 Units 14:13 CDT 18 Units, Subcutaneous, THREE TIMES DAILY WITH MEALS, First dose on Sun03/26/18 at 1800, Until Discontinued, Hold if NPO for procedure, unable to eat, or if FSBS < 70 mg/dL Give at start of meal. NOTE: This is a HIGH ALERT Medication. Given 03/28/2018 18 Units Arm, Right 18:49 CDT Given 03/29/2018 18 Units Arm, Right 09:20 CDT insulin aspart U-100 (NOVOLOG FLEXPEN) Given 03/30/2018 6 Units Abdominal injection PEN 6 Units 10:23 CDT Tissue 6 Units, Subcutaneous, THREE TIMES DAILY WITH MEALS, First dose on Sun03/29/18 at 1200, Until Discontinued, Hold if NPO for procedure, unable to eat, or if FSBS < 70 mg/dL Give at start of meal. NOTE: This is a HIGH ALERT Medication. Given 03/30/2018 6 Units Arm, Right 14:14 CDT Given 03/30/2018 6 Units Arm, Right 19:20 CDT insulin aspart U-100 (NOVOLOG FLEXPEN) Given 03/31/2018 8 Units Abdominal injection PEN 8 Units 16:22 CDT Tissue 8 Units, Subcutaneous, THREE TIMES DAILY WITH MEALS, First dose on Sun03/31/18 at 1200, Until Discontinued, Hold if NPO for procedure, unable to eat, or if FSBS < 70 mg/dL Give at start of meal. NOTE: This is a HIGH ALERT Medication. Given 03/31/2018 8 Units Arm, Right 19:37 CDT insulin glargine (LANTUS SOLOSTAR, Given 03/19/2018 18 Units Abdominal BASAGLAR) injection PEN 18 Units 02:53 CDT Tissue 18 Units, Subcutaneous, TWICE DAILY, First dose on Sun03/19/18 at 0130, Until Discontinued, Continue if NPO. DO NOT mix with other insulins -- Do not mix with other insulins -- NOTE: This is a HIGH ALERT Medication. Given 03/19/2018 18 Units Arm, Right 21:39 CDT Given 03/20/2018 18 Units Arm, Left 08:33 CDT insulin glargine (LANTUS SOLOSTAR, Given 03/29/2018 18 Units Abdominal BASAGLAR) injection PEN 18 Units 21:04 CDT Tissue 18 Units, Subcutaneous, AT BEDTIME DAILY, First dose on Sun03/29/18 at 2100, Until Discontinued, -- Do not mix with other insulins -- NOTE: This is a HIGH ALERT Medication. insulin glargine (LANTUS SOLOSTAR, Given 03/30/2018 18 Units Abdominal BASAGLAR) injection PEN 18 Units 08:29 CDT Tissue 18 Units, Subcutaneous, TWICE DAILY, First dose on Sun03/30/18 at 0900, Until Discontinued, -- Do not mix with other insulins -- NOTE: This is a HIGH ALERT Medication. Given 03/30/2018 18 Units Arm, Right 21:48 CDT insulin glargine (LANTUS SOLOSTAR, Given 03/31/2018 22 Units Arm, Right BASAGLAR) injection PEN 22 Units 09:00 CDT 22 Units, Subcutaneous, TWICE DAILY, First dose on Sun03/31/18 at 0900, Until Discontinued, -- Do not mix with other insulins -- NOTE: This is a HIGH ALERT Medication. Given 03/31/2018 22 Units Abdominal 20:27 CDT Tissue insulin glargine (LANTUS SOLOSTAR, Given 04/01/2018 22 Units Abdominal BASAGLAR) injection PEN 22 Units 22:02 CDT Tissue 22 Units, Subcutaneous, AT BEDTIME DAILY, First dose on Sun04/01/18 at 2100, Until Discontinued, -- Do not mix with other insulins -- NOTE: This is a HIGH ALERT Medication. Given 04/02/2018 22 Units Arm, Right 21:36 CDT insulin glargine (LANTUS SOLOSTAR, BASAGLAR) injection PEN 22 Units 22 Units, Subcutaneous, AT BEDTIME DAILY, First dose on Sun04/03/18 at 2100, Until Discontinued, -- Do not mix with other insulins -- NOTE: This is a HIGH ALERT Medication. insulin glargine (LANTUS SOLOSTAR, Given 04/01/2018 28 Units Arm, Right BASAGLAR) injection PEN 28 Units 08:42 CDT 28 Units, Subcutaneous, DAILY WITH BREAKFAST, First dose on Sun04/01/18 at 0900, Until Discontinued, -- Do not mix with other insulins -- NOTE: This is a HIGH ALERT Medication. Given 04/02/2018 28 Units Arm, Left 10:55 CDT insulin glargine (LANTUS SOLOSTAR, Given 03/27/2018 35 Units Abdomen: RUQ BASAGLAR) injection PEN 35 Units 08:30 CDT 35 Units, Subcutaneous, TWICE DAILY, First dose on Sun03/25/18 at 0900, Until Discontinued, -- Do not mix with other insulins -- NOTE: This is a HIGH ALERT Medication. Given 03/27/2018 35 Units Abdomen:LLQ 20:39 CDT Given 03/28/2018 35 Units Arm, Left 08:21 CDT insulin regular (NOVOLIN R) 100 Units in Dose/Rate 03/20/2018 3.5 Units/ hr 3.5 mL/hr sodium chloride 0.9% (NS) 100 mL IV drip Change 12:05 CDT (std conc) 1-32 Units/hr (1-32 mL/hr) 100 mL, at 1-32 mL/hr, Intravenous, TITRATE DIRECTED , Starting Sun03/20/18 at 1000, Until Sun03/20/18 at 1625, (Administration Instructions were omitted from this summary because they were too long) Dose/Rate Change 03/20/2018 4.5 Units/hr 4.5 mL/hr 13:05 CDT Dose/Rate Change 03/20/2018 5.5 Units/hr 5.5 mL/hr 14:00 CDT insulin regular (NOVOLIN R) 100 Units in Dose/Rate 03/25/2018 5 Units/hr 5 mL/hr sodium chloride 0.9% (NS) 100 mL IV drip Change 03:57 CDT (std conc) 1-32 Units/hr (1-32 mL/hr) 100 mL, at 1-32 mL/hr, Intravenous, TITRATE DIRECTED , Starting Sun03/20/18 at 1815, Until Sun03/25/18 at 1024, (Administration Instructions were omitted from this summary because they were too long) Given - New Bag 03/25/2018 5 Units/hr 5 mL/hr 06:14 CDT Infusion Restarted 03/25/2018 3 Units/hr 3 mL/hr 09:16 CDT levothyroxine (SYNTHROID) tablet 125 mcg Given 04/01/2018 125 mcg 125 mcg, Per NG tube, DAILY, First dose 06:02 CDT on Tu03/19/18 at 0700, Until Discontinued, Give 1 hour before a meal. If patient is receiving tube feedings, hold tube feed 1hr before and 1hr after dose. Given 04/02/2018 125 mcg 06:08 CDT Given 04/03/2018 125 mcg 08:17 CDT lidocaine (LIDODERM) 5 % topical patch 1 Patch/Topica 03/30/2018 1 patch Hip, Right patch l Applied 20:56 CDT 1 patch, Topical, Administer over 12 Hours, DAILY, First dose on 03/30/18 at 1930, Until Discontinued, NURSING PLEASE NOTE: Apply patch ONCE DAILY to painful area near inguinal access site and REMOVE after designated duration. Apply only to intact skin. Patch may be cut to fit affected area. Patch/Topical Applied 03/31/2018 1 patch Hip, Right 20:27 CDT Patch/Topical Applied 04/01/2018 1 patch Hip, Right 21:32 CDT lidocaine (LIDODERM) 5 % topical patch 1 Patch/Topica 04/01/2018 1 patch Hip, Right patch l Applied 08:27 CDT 1 patch, Topical, Administer over 12 Hours, DAILY, First dose on 03/31/18 at 1330, Until Discontinued, NURSING PLEASE NOTE: Apply patch ONCE DAILY around groin area and REMOVE after designated duration. Apply only to intact skin. Patch may be cut to fit affected area. Patch/Topical Applied 04/02/2018 1 patch Leg, Right 09:49 CDT lidocaine 1 % (10mg/mL) injection 10-20 Given 03/26/2018 20 mL mL 14:17 CDT 10-20 mL (100-200 mg), Injection, ONCE, 1 dose, 03/26/18 at 1430 lidocaine PF 1% (10 mg/mL) injection 0.1-2 mL 0.1-2 mL, Injection, NEEDED, Starting 03/26/18 at 1500, Until 04/03/18 at 1259, Other..., for peripheral IV insertion lidocaine PF injection 5 mL Given 03/26/2018 5 mL 5 mL, Inhalation, ONCE, 1 dose, Tue 13:45 CDT 03/26/18 at 1200, When administered by RT, will be per RT policy. lisinopril (PRINIVIL; ZESTRIL) tablet 10 Given 04/03/2018 10 mg mg 09:43 CDT 10 mg, Oral, DAILY, First dose on Sun04/03/18 at 0900, Until Discontinued lisinopril (PRINIVIL; ZESTRIL) tablet 5 Given 04/01/2018 5 mg mg 16:51 CDT 5 mg, Oral, DAILY, First dose on Sun04/01/18 at 1700, Until Discontinued magnesium sulfate 1 g/D5W 100 mL IVPB Given - 03/21/2018 1 g 100 mL/hr 1 g, Intravenous, 100 mL, Administer Bag 17:51 CDT over 1 Hours, ONCE, 1 dose, Anuradha 03/21/18 at 1745, Each 1gm delivers 8.1 mEq Magnesium. magnesium sulfate 1 g/D5W 100 mL IVPB Given - 03/22/2018 1 g 100 mL/hr 1 g, Intravenous, 100 mL, Administer Bag 08:57 CDT over 1 Hours, EVERY 1 HOUR FOR 2 DOSES, 2 doses, First dose on Sun03/22/18 at 0900, Last dose on Sun03/22/18 at 1000, Each 1gm delivers 8.1 mEq Magnesium. Given - New Bag 03/22/2018 1 g 100 mL/hr 10:00 CDT magnesium sulfate 1 g/D5W 100 mL IVPB Given - New 03/23/2018 1 g 100 mL/hr 1 g, Intravenous, 100 mL, Administer Bag 08:14 CDT over 1 Hours, EVERY 1 HOUR FOR 2 DOSES, 2 doses, First dose on 03/23/18 at 0800, Last dose on 03/23/18 at 0900, Each 1gm delivers 8.1 mEq Magnsium. Given - New Bag 03/23/2018 1 g 100 mL/hr 09:28 CDT magnesium sulfate 1 g/D5W 100 mL IVPB Given - 03/24/2018 1 g 100 mL/hr 1 g, Intravenous, 100 mL, Administer Bag 08:03 CDT over 1 Hours, EVERY 1 HOUR FOR 2 DOSES, 2 doses, First dose on 03/24/18 at 0800, Last dose on Sun03/24/18 at 0900, Each 1gm delivers 8.1 mEq Magnsium. Given - New Bag 03/24/2018 1 g 100 mL/hr 09:03 CDT magnesium sulfate 1 g/D5W 100 mL IVPB Given - 03/24/2018 1 g 100 mL/hr 1 g, Intravenous, 100 mL, Administer Bag 17:06 CDT over 1 Hours, EVERY 1 HOUR FOR 2 DOSES, 2 doses, First dose on Sun03/24/18 at 1700, Last dose on Sun03/24/18 at 1800, Each 1gm delivers 8.1 mEq Magnsium. Given - New Bag 03/24/2018 1 g 100 mL/hr 18:06 CDT magnesium sulfate 1 g/D5W 100 mL IVPB Given - 03/28/2018 1 g 100 mL/hr 1 g, Intravenous, 100 mL, Administer Bag 08:06 CDT over 1 Hours, ONCE, 1 dose, [facility] 03/28/18 at 0700, Each 1gm delivers 8.1 mEq Magnesium. magnesium sulfate 1 g/D5W 100 mL IVPB Given - 03/31/2018 1 g 100 mL/hr 1 g, Intravenous, 100 mL, Administer Bag 11:02 CDT over 1 Hours, ONCE, 1 dose, [place] 03/31/18 at 0700, Each 1gm delivers 8.1 mEq Magnesium. magnesium sulfate 1 g/D5W 100 mL IVPB Given - 04/02/2018 1 g 100 mL/hr 1 g, Intravenous, 100 mL, Administer Bag 17:06 CDT over 1 Hours, ONCE, 1 dose, [facility] 04/02/18 at 1645, Each 1gm delivers 8.1 mEq Magnesium. magnesium sulfate 4 g/50 mL IVPB Given - 03/19/2018 4 g 4 g, Intravenous, 50 mL, Administer over Bag 06:17 CDT 4 Hours, ONCE, 1 dose, 03/19/18 at 0215, Each 1gm delivers 8.1 mEq Magnesium melatonin tablet 3 mg Given 03/31/2018 3 mg 3 mg, Oral, AT BEDTIME DAILY, First dose 20:27 CDT on Sun03/27/18 at 2100, Until Discontinued Given 04/01/2018 3 mg 21:36 CDT Given 04/02/2018 3 mg 21:35 CDT methylPREDNISolone (SOLU-MEDROL) 500 mg Given - 03/19/2018 500 mg 116 mL/hr in sodium chloride 0.9% (NS) 58 mL IVPB Bag 18:40 CDT 500 mg, Intravenous, 58 mL, Administer over 30 Minutes, EVERY 12 HOURS, 6 doses, First dose on Sun03/19/18 at 1845, Last dose on Sun03/22/18 at 0645 Given - New Bag 03/20/2018 500 mg 116 mL/hr 06:47 CDT metoprolol (LOPRESSOR) injection 2.5 mg Given 03/24/2018 2.5 mg 2.5 mg, Intravenous, EVERY 6 HOURS, 18:15 CDT First dose on 03/23/18 at 1215, Until Discontinued, Hold for heart rate < 50 bpm, MAP <65 PROTECT FROM LIGHT Given 03/25/2018 2.5 mg 00:28 CDT Given 03/25/2018 2.5 mg 06:26 CDT norepinephrine (LEVOPHED) 16 mg in Dose/Rate 03/20/2018 0.06 6.5 mL/hr dextrose 5% (D5W) 250 mL IV drip (quad Change 13:45 CDT mcg/kg/min conc) 0.01-0.3 mcg/kg/min 116 kg Order-specific weight (1.0875-32.625 mL/hr, rounded to 1.1-32.6 mL/hr) 250 mL, at 1.1-32.6 mL/hr, Intravenous, TITRATE DIRECTED , Starting Sun03/19/18 at 1115, Until Sun03/20/18 at 1304, Titrate to keep: MAP > 65 Quad Conc=64mcg/ml. For weight-based dosing, use patient dosing weight. Dose/Rate Change 03/20/2018 0.08 8.7 mL/hr 13:50 CDT mcg/kg/min Dose/Rate Change 03/20/2018 0.1 10.9 mL/hr 13:55 CDT mcg/kg/min norepinephrine (LEVOPHED) 16 mg in Dose/Rate 03/21/2018 0.05 5.4 mL/hr sodium chloride 0.9% (NS) 250 mL IV drip Verify 08:32 CDT mcg/kg/min (quad conc) 0.01-0.3 mcg/kg/min 116 kg Order-specific weight (1.0875-32.625 mL/hr, rounded to 1.1-32.6 mL/hr) 250 mL, at 1.1-32.6 mL/hr, Intravenous, TITRATE DIRECTED , Starting 03/20/18 at 1315, Until 03/23/18 at 0726, Titrate to keep: MAP > 65 Quad Conc=64mcg/ml. For weight-based dosing, use patient dosing weight. Dose/Rate Change 03/21/2018 0.03 3.3 mL/hr 10:15 CDT mcg/kg/min Dose/Rate Change 03/21/2018 0.01 1.1 mL/hr 11:42 CDT mcg/kg/min norepinephrine (LEVOPHED) 4 mg in Dose/Rate 03/19/2018 0.1 43.5 mL/hr dextrose 5% (D5W) 250 mL IV drip (std Verify 08:45 CDT mcg/kg/min conc) 0.01-0.3 mcg/kg/min 116 kg (4.35-130.5 mL/hr, rounded to 4.4-130.5 mL/hr) 250 mL, at 4.4-130.5 mL/hr, Intravenous, TITRATE DIRECTED , Starting 03/18/18 at 2330, Until Sun03/19/18 at 1057, Initiate at 0.01 mcg/kg/min Titrate to keep: MAP > 65 Std Conc=16mcg/mL. For weight-based dosing, use patient dosing weight. Given - New Bag 03/19/2018 0.1 43.5 mL/hr 09:30 CDT mcg/kg/min Dose/Rate Verify 03/19/2018 0.1 43.5 mL/hr 12:00 CDT mcg/kg/min nystatin (NYSTOP) topical powder Given 04/01/2018 Topical, TWICE DAILY, First dose on Anuradha 21:37 CDT 03/21/18 at 1315, Until Discontinued, Apply bilaterally under breasts and bilaterally in groins. Given 04/02/2018 09:52 CDT Given 04/02/2018 21:36 CDT pantoprazole (PROTONIX) injection 40 mg Given 03/22/2018 40 mg 40 mg, Intravenous, TWICE DAILY, First 20:20 CDT dose on Sun03/19/18 at 1100, Until Discontinued Given 03/23/2018 40 mg 10:52 CDT Given 03/23/2018 40 mg 20:04 CDT pantoprazole (PROTONIX) injection 40 mg Given 03/25/2018 40 mg 40 mg, Intravenous, DAILY, First dose on 09:19 CDT 03/24/18 at 0900, Until Discontinued Given 03/26/2018 40 mg 10:08 CDT Given 03/27/2018 40 mg 08:23 CDT PARoxetine (PAXIL) tablet 40 mg Given 04/01/2018 40 mg 40 mg, Per NG tube, DAILY, First dose on 08:27 CDT 03/19/18 at 0900, Until Discontinued Given 04/02/2018 40 mg 09:52 CDT Given 04/03/2018 40 mg 09:42 CDT perflutren lipid microspheres (DEFINITY) Given 03/19/2018 2.5 Diluted injection 1-20 Diluted mL 09:33 CDT mL 1-20 Diluted mL, Intravenous, ONCE, 1 dose, [facility] 03/19/18 at 0915, NOTE: This is a HIGH ALERT Medication. perflutren lipid microspheres (DEFINITY) Given 03/21/2018 2 Diluted mL injection 1-20 Diluted mL 10:51 CDT 1-20 Diluted mL, Intravenous, ONCE, 1 dose, [facility] 03/21/18 at 0830, NOTE: This is a HIGH ALERT Medication. perflutren lipid microspheres (DEFINITY) Given 04/02/2018 2 Diluted mL injection 1-20 Diluted mL 12:59 CDT 1-20 Diluted mL, Intravenous, ONCE, 1 dose, [facility] 04/02/18 at 1230, NOTE: This is a HIGH ALERT Medication. polyethylene glycol 3350 (MIRALAX) Given 03/20/2018 34 g packet 34 g 10:39 CDT 34 g (2 packet), Oral, TWICE DAILY, First dose on Sun03/20/18 at 1100, Until Discontinued, 8.5 GRAMS=0.5 PACKET 17 GRAMS=1 PACKET 34 GRAMS=2 PACKETS Given 03/20/2018 34 g 20:46 CDT Given 03/21/2018 17 g 10:00 CDT potassium chloride oral solution 20 mEq Given 03/24/2018 20 mEq 20 mEq, Per NG tube, ONCE, 1 dose, Sun 23:09 CDT 4/29/18 at 2230 potassium chloride oral solution 20 mEq Given 03/26/2018 20 mEq 20 mEq, Oral, ONCE, 1 dose, Sun03/26/18 12:10 CDT at 1215 potassium chloride oral solution 40 mEq Given 03/20/2018 40 mEq 40 mEq, Per OG Tube, ONCE, 1 dose, Sun 05:59 CDT 03/20/18 at 0515 potassium chloride oral solution 40 mEq Given 03/21/2018 40 mEq 40 mEq, Per NG tube, TWICE DAILY, First 10:00 CDT dose on Sun03/20/18 at 1100, Until Discontinued Given 03/21/2018 40 mEq 21:46 CDT Given 03/22/2018 40 mEq 09:01 CDT potassium chloride oral solution 40 mEq Given 03/23/2018 40 mEq 40 mEq, Per NG tube, DAILY, First dose 08:13 CDT on Sun03/23/18 at 0900, Until Discontinued Given 03/24/2018 40 mEq 09:29 CDT Given 03/25/2018 40 mEq 09:43 CDT potassium chloride oral solution 40 mEq Given 03/25/2018 40 mEq 40 mEq, Per NG tube, ONCE, 1 dose, Mon 05:06 CDT 03/25/18 at 0430 potassium chloride oral solution 40 mEq Given 03/31/2018 40 mEq 40 mEq, Oral, ONCE, 1 dose, 03/31/18 07:49 CDT at 0700 potassium chloride SR (K-DUR) tablet 20 Given 03/31/2018 20 mEq mEq 21:28 CDT 20 mEq, Oral, ONCE, 1 dose, 03/31/18 at 2130, - Tablet may be dispersed in water. Place tab in 30 mL of water for 40-60 seconds. - Gently swirl until fully dispersed. If particles remain after admin, add small amount of water and admin remaining content. - DO NOT CRUSH. Tablet may be split in half. potassium chloride SR (K-DUR) tablet 20 Given 04/03/2018 20 mEq mEq 09:43 CDT 20 mEq, Oral, DAILY, First dose on Sun04/03/18 at 0900, Until Discontinued, - Tablet may be dispersed in water. Place tab in 30 mL of water for 40-60 seconds. - Gently swirl until fully dispersed. If particles remain after admin, add small amount of water and admin remaining content. - DO NOT CRUSH. Tablet may be split in half. potassium chloride SR (K-DUR) tablet 40 Given 03/19/2018 40 mEq mEq 08:04 CDT 40 mEq, Oral, TWICE DAILY WITH MEALS, 2 doses, First dose on Sun03/19/18 at 0900, Last dose on Sun03/19/18 at 1700, - Tablet may be dispersed in water. Place tab in 30 mL of water for 40-60 seconds. - Gently swirl until fully dispersed. If particles remain after admin, add small amount of water and admin remaining content. - DO NOT CRUSH. Tablet may be split in half. Given 03/19/2018 40 mEq 21:27 CDT potassium chloride SR (K-DUR) tablet 40 Given 03/24/2018 40 mEq mEq 17:07 CDT 40 mEq, Oral, ONCE, 1 dose, [place] 03/24/18 at 1645 potassium chloride SR (K-DUR) tablet 40 Given 03/31/2018 40 mEq mEq 08:43 CDT 40 mEq, Oral, DAILY, First dose on Sun03/27/18 at 1045, Until Discontinued, - Tablet may be dispersed in water. Place tab in 30 mL of water for 40-60 seconds. - Gently swirl until fully dispersed. If particles remain after admin, add small amount of water and admin remaining content. - DO NOT CRUSH. Tablet may be split in half. Given 04/01/2018 40 mEq 08:27 CDT Given 04/02/2018 40 mEq 09:54 CDT potassium chloride SR (K-DUR) tablet 40 Given 03/27/2018 40 mEq mEq 21:27 CDT 40 mEq, Oral, ONCE, 1 dose, [facility] 03/27/18 at 2100, Do NOT break or crush tablet potassium chloride SR (K-DUR) tablet 60 Given 03/28/2018 60 mEq mEq 22:24 CDT 60 mEq, Oral, ONCE, 1 dose, [facility] 03/28/18 at 2130, Do NOT break or crush tablet propofol (DIPRIVAN) 10 mg/mL IV infusion Dose/Rate 03/22/2018 30 20.8 mL/hr 5-60 mcg/kg/min Verify 05:10 CDT mcg/kg/min 115.7 kg (3.471-41.652 mL/hr, rounded to 3.5-41.7 mL/hr) 100 mL, at 3.5-41.7 mL/hr, Intravenous, TITRATE DIRECTED , Starting 03/19/18 at 1030, Until 03/23/18 at 0726, -Initiate at 30 mcg/kg/min (No loading dose) -Titrate to keep: RASS of 0 to -2- -Increase in 10 mcg/kg/min increments every 1 minute to achieve goal sedation level. -Call physician if maintenance exceeds 60 mcg/kg/min -Taper agent continuously to lowest effective dose to achieve desired level of sedation keeping patient calm and able to participate in care. NOTE: This is a HIGH ALERT Medication. Given - New Bag 03/22/2018 30 20.8 mL/hr 05:23 CDT mcg/kg/min Dose/Rate Verify 03/22/2018 30 20.8 mL/hr 07:44 CDT mcg/kg/min protamine injection 10 mg Given 03/20/2018 10 mg 10 mg, Intravenous, ONCE, 1 dose, Sun 17:15 CDT 03/20/18 at 1715, Administer slow IVP (50 mg over 10 minutes). Rapid IV infusion causes hypotension; maximum of 50 mg in any 10-minute period. protamine injection 30 mg Given 03/20/2018 30 mg 30 mg, Intravenous, ONCE, 1 dose, Sun 17:30 CDT 03/20/18 at 1715, Give 10 minutes after test dose if pt does not become hypotensive. RP DX F-18 FDG injection 15 millicurie Given 03/26/2018 13.7 15 millicurie, Intravenous, ONCE, 1 07:23 CDT millicuries dose, Sun03/26/18 at 0845 senna (SENOKOT) tablet 1 tablet Given 03/20/2018 1 tablet 1 tablet, Oral, TWICE DAILY, First dose 10:39 CDT on Sun03/20/18 at 1115, Until Discontinued, Hold for loose stools senna/docusate (SENOKOT-S) tablet 2 Given 03/20/2018 2 tablets tablet 20:46 CDT 2 tablet, Oral, TWICE DAILY, First dose on Sun03/20/18 at 1215, Until Discontinued, Hold for loose stools Given 03/21/2018 2 tablets 10:00 CDT sodium chloride 0.9 % infusion Dose/Rate 03/19/2018 1,000 mL 5 mL/hr 1,000 mL, 1,000 mL, Intravenous, at 5 Verify 04:37 CDT mL/hr, CONTINUOUS, Starting Sun03/19/18 at 0345, Until Sun03/20/18 at 1108, TKO sodium chloride 0.9 % infusion Given - 03/27/2018 1,000 mL 50 mL/ hr 1,000 mL, Intravenous, CONTINUOUS, Bag 08:22 CDT Starting Sun03/27/18 at 0800, Until Sun03/29/18 at 0759, -EF >35%: NS @ 100 mL/hr to be started the morning of procedure (not to exceed 750 mL) -EF <35%: NS @ 50 mL/hr to be started the morning of procedure (not to exceed 500 mL) spironolactone (ALDACTONE) tablet 25 mg Given 04/02/2018 25 mg 25 mg, Oral, DAILY, First dose on Sun 17:06 CDT 04/02/18 at 1745, Until Discontinued, NURSING: Please educate patient and document: Avoid using salt substitutes which have a high potassium content (Nu-Salt). vancomycin (VANCOCIN) 1,500 mg in Given - New 03/23/2018 1,500 mg 200 mL/hr dextrose 5% (D5W) IVPB Bag 01:58 CDT 1,500 mg, Intravenous, 300 mL, Administer over 90 Minutes, EVERY 24 HOURS, First dose on Sun03/23/18 at 0200, Until Discontinued, Note Pharmacokinetic Monitoring: Please record infusion start time (Action=Given) and stop time (Action=Completed) of dose when blood levels are drawn. vancomycin (VANCOCIN) 1,500 mg in Given - 03/27/2018 1,500 mg 200 mL /hr dextrose 5% (D5W) IVPB Bag 23:32 CDT 1,500 mg (rounded from 1,432.5 mg=15 mg/kg 95.5 kg), Intravenous, 300 mL, Administer over 90 Minutes, EVERY 12 HOURS, 2 doses, First dose on Sun03/27/18 at 1145, Last dose on Sun03/27/18 at 2345, -Give pre-op dose in pre/post or ICU within 2 hours prior to incision. Give post-op dose 12 hours after pre-op dose. -Note Pharmacokinetic Monitoring: Please record infusion start time (Action=Given) and stop time (Action=Completed) of dose when blood levels are drawn. vancomycin (VANCOCIN) 1,750 mg in Given - New 03/19/2018 1,750 mg 233 mL/hr dextrose 5% (D5W) IVPB Bag 21:06 CDT 1,750 mg (rounded from 1,735.5 mg=15 mg/kg 115.7 kg), Intravenous, 350 mL, Administer over 90 Minutes, EVERY 24 HOURS, First dose on Sun03/19/18 at 2130, Until Discontinued, Note Pharmacokinetic Monitoring: Please record infusion start time (Action=Given) and stop time (Action=Completed) of dose when blood levels are drawn. Given - New Bag 03/20/2018 1,750 mg 233 mL/hr 20:46 CDT Given - New Bag 03/21/2018 1,750 mg 233 mL/hr 21:46 CDT vasopressin (VASOSTRICT) 20 Units in Given - New 03/19/2018 2.4 Units/hr 12 mL/hr sodium chloride 0.9% (NS) 100 mL IV drip Bag 18:16 CDT (std conc) 0.6-3.6 Units/hr (3-18 mL/hr) 100 mL, at 3-18 mL/hr, Intravenous, CONTINUOUS, Starting Sun03/19/18 at 1030, Until 03/23/18 at 1122, Initiate at 2.4 units/hr Titrate to keep: MAP > 65 Dose/Rate Verify 03/19/2018 2.4 Units/hr 12 mL/hr 20:00 CDT Dose/Rate Change 03/20/2018 1.8 Units/hr 9 mL/hr 00:07 CDT WATER FOR INJECTION, STERILE IJ SOLN Given 03/20/2018 20 mL (Cabinet Override) 10:39 CDT NOW, 1 dose, 03/20/18 at 1045, Created by cabinet override in this encounter
--- OUTSIDE RECORDS SUMMARY | 2018-04-03 14:09 | XMS REPORT | Encounter Summary ---
Author Author [facility] Organization [facility] Address Unknown Phone Unavailable Care Team Providers Care Senior Analytic Consultant Name Role Phone Brad Cummings MD PCP Encounter Details Date Type Department Care Team Description 03/27/2018 Procedure Pass [facility] EP LAB [address] [place] [address] Social History Tobacco Use Types Packs/Day Years Used Date Former Smoker Cigarettes 1 40 Comments: Quit 8 years ago Alcohol Use Drinks/Week oz/Week Comments Yes Occassionally Sex Assigned at Date Recorded Not on file as of this encounter Functional Status Functional Status Response Date of Assessment Does the patient have a hearing impairment: No 03/22/2018 as of this encounter Plan of Treatment Not on fileas of this encounter Visit Diagnoses Not on filein this encounter
--- OUTSIDE RECORDS SUMMARY | 2018-04-03 14:14 | XMS REPORT | Encounter Summary ---
Author Author [facility] Organization [facility] Address Unknown Phone Unavailable Care Team Providers Care Systems Administration Analyst Name Role Phone Brad Cummings MD PCP Reason for Visit * Auth/Cert Status Reason Specialty Diagnoses / Referred By Referred To Procedures Contact Contact Diagnoses cardiogenic shock Cardiogenic shock (HCC) Encounter Details Date Type Department Care Team Description 03/26/2018 Anesthesia [facility] ICU Zhao Ivory MD Event [address] [place] [address] [place] [address] [place] [address] [phone] Anesthesia Record Procedure Name Responsible Anesthesia Start Time Anesthesia Stop Time Anesthesiologist ANESTHESIA ICU SERVICE Jorge A Acosta MD 03/26/18 1420 03/26/18 1440 PROCEDURE Date Time Event Comment 1419 Anes Start 2017 1420 An Induction The patient was reevaluated immediately before moderate or deep sedation use and before anesthesia induction. 1420 Start Supplemental O2 1420 Anesthesia Ready 1434 An Defib planned DCCV for a fib; resulted in NSR 1440 Handoff to RN I completed my SBAR handoff to the receiving nurse. 1440 an stop data 1440 An Stop Meds Name Total propofol (DIPRIVAN) 10 mg/mL IV infusion 56,145 mcg DOBUTamine (DOBUTREX) 1,000 mg in sodium 4,640 mcg chloride 0.9% (NS) 250 mL IV drip (std conc) propofol (DIPRIVAN) 200 mg/ 20 mL 50 mg injection (VIAL) sodium chloride 0.9 % infusion 0 mL * Name O2 * No blood administrations on file. Type Details Placement Removal Wounds 03/19/18; 0800; Left; Breast; 03/19/18 0800 by (NOT for Excoriation Prisca Zapien, RN Pressure Injuries) Indwelling 03/18/18; Present on Admission; 16 FR; 03/18/18 0000 by [place] , 03/31/18 1120 by Baudilio, Urinary Regular (Two-way); 03/31/18; 1120 TREVOR Mondragon Catheter Rectal 03/22/18; 1400; 03/26/18; 1732 03/22/18 1400 by 03/26/18 1732 by Aura Patel Kathryn, TREVOR Carmichael, TREVOR Peripheral 03/25/18; 1807; RN; L; Forearm; 22 G; 03/25/18 1807 by Eleazar, 03/28/18 204 by RAQUEL Cai No; 2; 03/28/18; 2041 TREVOR Benavides RN Peripheral 03/26/18; 1142; IV Therapy; R; Mid; 03/26/18 1142 by James, 04/03/18 0930 by RAQUEL Alejandro Forearm; 20 G; No; 1; 04/03/18; 0930 TREVOR Rowland, TREVOR in this encounter Social History Tobacco Use Types Packs/Day Years Used Date Former Smoker Cigarettes 1 40 Comments: Quit 8 years ago Alcohol Use Drinks/Week oz/Week Comments Yes Occassionally Sex Assigned at Date Recorded Not on file as of this encounter Functional Status Functional Status Response Date of Assessment Does the patient have a hearing impairment: No 03/22/2018 as of this encounter OR Notes * Anesthesia Preprocedure Evaluation - Zhao Ivory MD - 03/26/2018 2:08 PM CDT Formatting of this note may be different from the original. Anesthesia Pre-Procedure Evaluation Name: Elsa Kebede : 1950 Age: 68 y.o. Sex: female Procedure Date: 03/26/2018 Procedure: * No procedures listed * Physical Assessment Vital Signs (last filed in past 24 hours): BP: 126/59 (03/26 1300) Temp: 36.5 C (97.7 F) (03/26 1200) Pulse: 116 (03/26 1346) Respirations: 15 PER MINUTE (03/26 1346) SpO2: 98 % (03/26 1346) O2 Delivery: Nasal Cannula (03/26 1300) Weight: 98.5 kg (217 lb 2.5 oz) (03/26 0600) Patient History Allergies Allergen Reactions Latex SEE COMMENTS skin [...] by Rob GARRETT on 03/23/18 Current Medications Medication Directions acetaminophen SR(+) (TYLENOL 8 HOUR) 650 mg tablet Take 650 mg by mouth every 6 hours as needed for Pain. glimepiride (AMARYL) 2 mg tablet Take 2 mg by mouth twice daily. hydroCHLOROthiazide (HYDRODIURIL) 50 mg tablet Take 50 mg by mouth every morning. insulin detemir(+) (LEVEMIR) 100 unit/mL soln Inject 16 Units under the skin twice daily before meals. levothyroxine (SYNTHROID) 125 mcg tablet Take 125 mcg by mouth daily 30 minutes before breakfast. lisinopril (PRINIVIL; ZESTRIL) 10 mg tablet Take 10 mg by mouth daily. metFORMIN (GLUCOPHAGE) 1,000 mg tablet Take 1,000 mg by mouth twice daily with meals. PARoxetine (PAXIL) 40 mg tablet Take 40 mg by mouth daily. simvastatin (ZOCOR) 40 mg tablet Take 40 mg by mouth at bedtime daily. sitaGLIPtin (JANUVIA) 100 mg tab tablet Take 100 mg by mouth daily. Review of Systems/Medical History Patient summary reviewed Nursing notes reviewed Pertinent labs reviewed No history of anesthetic complications No family history of anesthetic complications Airway - negative Pulmonary - negative Cardiovascular Recent diagnostic studies: echocardiogram Interpretation Summary Technically difficult study; i.v. transpulmonary contrast was [...] grade II diastolic dysfunction, elevated filling pressure. Hypertension, Dysrhythmias; atrial fibrillation CHF Hyperlipidemia GI/Hepatic/Renal Liver disease Neuro/Psych - negative Musculoskeletal - negative Endocrine/Other Diabetes, type 2; using insulin Hypothyroidism Obesity Physical Exam Airway Findings Mallampati: II TM distance: >3 FB Neck ROM: full Mouth opening: good Airway patency: adequate Dental Findings: Negative Cardiovascular Findings: Rhythm: irregular Rate: normal Pulmonary Findings: Negative Breath sounds clear to auscultation. Abdominal Findings: Obese Comments: Deferred Neurological Findings: Negative Comments: Alert and Oriented Diagnostic Tests Hematology: Lab Results Component Value Date HGB 12.8 03/26/2018 HCT 40.5 03/26/2018 PLTCT 108 03/26/2018 WBC 9.4 03/26/2018 NEUT 91 03/19/2018 ANC 14.50 03/19/2018 ALC 0.50 03/19/2018 BLANCA 5 03/19/2018 AMC 0.80 03/19/2018 EOSA 0 03/19/2018 ABC 0.20 03/19/2018 MCV 86.3 03/26/2018 MCH 27.3 03/26/2018 MCHC 31.7 03/26/2018 MPV 9.6 03/26/2018 RDW 16.8 03/26/2018 General Chemistry: Lab Results Component Value Date NA 139 03/26/2018 K 3.9 03/26/2018 CL 90 03/26/2018 CO2 42 03/26/2018 GAP 7 03/26/2018 BUN 38 03/26/2018 CR 0.98 03/26/2018 GLU 132 03/26/2018 CA 10.0 03/26/2018 ALBUMIN 3.6 03/26/2018 LACTIC 1.1 03/20/2018 MG 2.1 03/26/2018 TOTBILI 0.9 03/26/2018 Coagulation: Lab Results Component Value Date PTT 101.5 03/23/2018 INR 1.9 03/19/2018 Anesthesia Plan ASA score: 3 Plan: MAC Induction method: intravenous Comments: (sedation for YESI/DCCV in CICU) Informed Consent Anesthetic plan and risks discussed with patient. Use of blood products discussed with patient; consented to blood products. Plan discussed with: anesthesiologist and resident. in this encounter Plan of Treatment Not on fileas of this encounter Visit Diagnoses Not on filein this encounter Administered Medications Medication Order MAR Action Action Date Dose Rate Site DOBUTamine (DOBUTREX) 1,000 mg in sodium Dose/Rate 03/28/2018 2 mcg/kg/ min 3.5 mL/hr chloride 0.9% (NS) 250 mL IV drip (std Verify 19:17 CDT conc) 3-4 mcg/kg/min 116 kg (5.22-6.96 mL/hr, rounded to 5.2-7 mL/hr) 250 mL, at 5.2-7 mL/hr, Intravenous, CONTINUOUS, Starting Sun03/19/18 at 1100, Until Sun03/31/18 at 1018, Infuse at 4 mcg/kg/min now; decrease in four hours. Call MD for ventricular ectopy. Std Azft=9425 mcg/ml NOTE: For weight-based dosing, use patient dosing weight. Given - New Bag 03/29/2018 2 mcg/kg/min 3.5 mL/hr 00:19 CDT Dose/Rate Verify 03/30/2018 2 mcg/kg/min 3.5 mL/hr 21:37 CDT propofol (DIPRIVAN) 10 mg/mL IV infusion Given - New 03/26/2018 50 29.6 mL/hr 5-150 mcg/kg/min Bag 14:20 CDT mcg/kg/min 98.5 kg (2.955-88.65 mL/hr, rounded to 3-88.7 mL/hr) 100 mL, at 3-88.7 mL/hr, Intravenous, TITRATE DIRECTED , Starting Sun03/26/18 at 1345, Until Sun03/29/18 at 0343, -Initiate at 10 mcg/kg/min (No loading dose) -Titrate to keep: RASS of 0 to -2- -Increase in 10 mcg/kg/min increments every 1 minute to achieve goal sedation level. -Call physician if maintenance exceeds 150 mcg/kg/min -Taper agent continuously to lowest effective dose to achieve desired level of sedation keeping patient calm and able to participate in care. NOTE: This is a HIGH ALERT Medication. Dose/Rate Change 03/26/2018 35 20.7 mL/hr 14:23 CDT mcg/kg/min propofol (DIPRIVAN) injection Given 03/26/2018 50 mg INTRA-PROCEDURE MED, Starting 03/26/18 14:33 CDT at 1433, Until 03/26/18 at 1441, Anesthesia Intra-op in this encounter
--- OUTSIDE RECORDS SUMMARY | 2018-04-03 14:14 | XMS REPORT | Encounter Summary ---
Author Author [facility] Organization [facility] Address Unknown Phone Unavailable Care Team Providers Care Digital Recruiter Name Role Phone Brad Cummings MD PCP Reason for Visit * Auth/Cert Status Reason Specialty Diagnoses / Referred By Referred To Procedures Contact Contact Diagnoses cardiogenic shock Cardiogenic shock (HCC) Encounter Details Date Type Department Care Team Description 03/27/2018 Surgery HC2 EP LAB Jovanny Fry MD INSERTION IMPLANTABLE [address] [place] [address] [place] [address] LEAD - DUAL [phone] Social History Tobacco Use Types Packs/Day Years [...] Alyssa Lund, PT Date: 04/02/2018 * Pawan Kinsey, RT - 04/02/2018 10:51 AM CDT RT [...] PROGRESS NOTE Patient Name: Farheen Gutierres Room/Bed: [place] [address] Admitting Diagnosis: cardiogenic shock Cardiogenic shock (HCC) [...] house, Transfers, Bed mobility, Stairs, Ambulation Therapist: EMILEE Dunn/L Date: 04/02/2018 * Tamy Rose RN - [...] the data was not accurate, but the roof service technician stated later he thought it might [...] follow and provide intervention as indicated. Therapist: EMILEE Dunn/Micki [id number] Date: 04/01/2018 * Dana Gregg - 04/01/2018 12:58 PM CDT CLINICAL NUTRITION Clinical Nutrition Follow-Up Summary Nutrition Assessment of Patient: Malnutrition Assessment: Adequately nourished prior to admission Current Oral Intake: Improving, Marginally Adequate Estimated Calorie Needs: 6858-3761 (25-28 kcals/kg per DBW 69.9kg) Estimated Protein [...] for regular diet with thin liquids by GUEST RELATIONS AGENT on 03/25. Now on cardiac diet with thin liquids. Note weight is down 10.3 kg, but is net negative 29.4 L per I /Os. PO intakes continue to improve. She is eating 50-100% of her meals. Denies GI issues. Labs and meds reviewed. Note plans to discharge to [facility] soon. Recommendation: Add on 60 g/meal consistent [...] met;Ongoing Dana Pemberton, MS, RD, LD Pager [phone] * Fabian Aaron, PT - 04/01/2018 11:55 AM CDT PHYSICAL [...] Minimal Assist;of 1st person;Standby Assist;of 2nd person (Ring Striker provides chair follow today) Gait: Assistive Device: [...] Aaron, PT, DPT Date: 04/01/2018 * Toni Aly RT - 03/31/2018 5:02 PM CDT Formatting [...] Date: 03/31/2018 Fall AC=Airway clearance AM=Aerosolized medication BA=Branch aerosol DB&C=Deep breathe & cough FEV1=Forced expiratory volume in first second) IC=Inspiratory capacity LE=Lung expansion MDI=Metered dose inhaler Neb=Nebulizer O2=Oxygen Oxim=Oximetry PEFR=Peak expiratory flow rate ADVERTISING SALES ASSOCIATE=Rapid Response Team * Philippe Aguero MD - [...] to go to the inpatient facility in [facility] [place]. If she fails the dobutamine weaning she will need to transition to milrinone, which is possible to take at that facility in [place]. I understand dobutamine is not possible to [...] Dosing 03/19 Lasix gtt 20, diuril x1, 4/25 lasix gtt 20 diuril x 1, 03/21 [...] on 11/27 -2 lpm NC - no VISITOR SERVICES REPRESENTATIVE supplemental oxygen requirement GPC bacteremia Klebsiella UTI - / BCx [...] on therapy due to hypotension DM - VISITOR SERVICES REPRESENTATIVE levemir 18 units BID, metformin and Januvia - 24 hour insulin requirement 195 units, 75 % ~ 150 units, though was on steroids and had D5 infusion at the time > Will schedule for 22 units lantus QAM and QHS and 8 units novolog TID w/ meals, MDCF HLD - VISITOR SERVICES REPRESENTATIVE simvastatin > Continue simvastatin > Lipid profile [...] inpatient rehab. Patient requesting a facility in [place], [place]. Will need to be on milrinone if inotrope needed Patient seen and discussed with Dr. Aguero. Myles Mdobdulio Internal Medicine / PGY-2 Pager [phone] Subjective: Farheen Gutierres is a 68 y.o. [...] patient's care. Philippe Aguero MD * Prisca Arreguin RN - 03/31/2018 12:06 AM CDT Formatting [...] of. VSS, asymptomatic. Cardiology text paged (tracking #[id number]) with vitals and above info. * Naomi [...] on 11/27 -2 lpm NC - no VISITOR SERVICES REPRESENTATIVE supplemental oxygen requirement GPC bacteremia Klebsiella UTI [...] on therapy due to hypotension DM - VISITOR SERVICES REPRESENTATIVE levemir 18 units BID, metformin and Januvia - 24 hour insulin requirement 195 units, 75 % ~ 150 units, though was on steroids and had D5 infusion at the time > Will schedule for 18 units lantus QHS and 6 units novolog TID w/ meals, HDCF HLD - VISITOR SERVICES REPRESENTATIVE simvastatin > Continue simvastatin > Lipid profile [...] inpatient rehab. Patient requesting a facility in [place], [place]. Patient seen and discussed with Dr. Aguero. [facility] Internal Medicine / PGY-2 Pager [phone] Subjective: Farheen Gutierres is a 68 y.o. [...] targeting transfer/discharge to the inpatient rehab in [facility]. She needs ongoing nutritional support and physical therapy. Philippe Aguero MD * Juan Ramon Ríos RN - 03/30/2018 6:32 AM CDT Formatting of [...] PROGRESS NOTE Patient Name: Farheen Gutierres Room/Bed: [place] [address] Admitting Diagnosis: cardiogenic shock Cardiogenic shock (HCC) [...] house, Transfers, Bed mobility, Stairs, Ambulation Therapist: EMILEE Dunn/Micki [id number] Date: 03/29/2018 * Tomasa Costa, PT - [...] Score: 38.32 Basic Mobility CMS 0-100%: 47.12 [facility] G Code Modifier for Basic Mobility: CK [...] and make plans for [facility] in [facility] [place]. She remains in regular rhythm. Hemoglobin is [...] on 11/27 -2 lpm NC - no VISITOR SERVICES REPRESENTATIVE supplemental oxygen requirement GPC bacteremia Klebsiella UTI [...] on therapy due to hypotension DM - VISITOR SERVICES REPRESENTATIVE levemir 18 units BID, metformin and Januvia - 24 hour insulin requirement 195 units, 75 % ~ 150 units, though was on steroids and had D5 infusion at the time > Will schedule for 18 units lantus QHS and 6 units novolog TID w/ meals, HDCF HLD - VISITOR SERVICES REPRESENTATIVE simvastatin > Continue simvastatin > Lipid profile [...] inpatient rehab. Patient requesting a facility in [place], [place]. Patient seen and discussed with Dr. Aguero. Wayne Rivera M.D. Internal Medicine/Psychiatry PGY-1 Pager: [phone] Subjective: Farheen Gutierres is a 68 y.o. [...] 20,000 Units/ sodium bicarbonate 650 mg(#) PRN (Pinked Edge Sewing Machine Operator from Rx) Associated attestation - Philippe Aguero [...] extubated Pulmonary edema - continues on 1/2 Lpm NC GPC bacteremia Klebsiella UTI - /2 BCx bottle positive for Staph and 2/2 [...] on therapy due to hypotension DM - VISITOR SERVICES REPRESENTATIVE levemir 18 units BID, metformin and Januvia - 24 hour insulin requirement 195 units, 75 % ~ 150 units > Will schedule for 35 units lantus and 23 units novolog TID w/ meals, HDCF until NPO HLD - VISITOR SERVICES REPRESENTATIVE simvastatin > Continue > Lipid profile (03/19/18): [...] Patient seen and discussed with Dr. Aguero. [facility] Internal Medicine / PGY-2 Pager [phone] Subjective: Farheen Gutierres is a 68 y.o. [...] Intake/Output Summary (Last 24 hours) at 03/28/18 1650 Last data filed at 03/28/18 1531 Gross per 24 hour Intake 1198.5 ml [...] 20,000 Units/ sodium bicarbonate 650 mg(#) PRN (Pinked Edge Sewing Machine Operator from Rx) Associated attestation - Philippe Aguero [...] oral residue noted after swallow. Therapist: Micki Cates/LARRY-GUEST RELATIONS AGENT (Pager [phone]; Voalte: [phone]) Date: 03/28/2018 * Dana Gregg - 03/28/2018 11:36 AM CDT CLINICAL NUTRITION Clinical Nutrition Follow-Up Summary Nutrition Assessment of Patient: Malnutrition Assessment: Adequately nourished prior to admission Current Oral Intake: Improving, Marginally Adequate Estimated Calorie Needs: 0400-1875 (25-28 kcals/kg per DBW 69.9kg) Estimated Protein [...] for regular diet with thin liquids by GUEST RELATIONS AGENT on 03/25. Now on cardiac diet with thin liquids. Note weight is down 20.5 kg, but is net negative 23.4 L per I /Os. PO intakes have continued to improve. Yesterday she ate 90% of two meals and this morning 85% of her breakfast albanian toast, sausage, orange juice, and fruit. She reports good appetite and she was eating well VISITOR SERVICES REPRESENTATIVE. Denies GI issues. She avoids added sugars for her diabetes. Declines carb counting education today. POC BG x 24 hr ranging 75-279 mg/dL. Made pt aware Boost GC available upon request. Will continue to [facility]. Recommendation: Add on 60 g/meal consistent carb [...] Hours Dana Pemberton, MS, RD, LD Pager [phone] * Scarlett Joe RN - 03/28/2018 10:34 [...] ASSESSMENT NOTE Patient Name: Farheen Gutierres Room/Bed: [place] [address] Admitting Diagnosis: cardiogenic shock Cardiogenic shock (HCC) Past Medical History: Diagnosis Date Essential hypertension 03/19/2018 HLD (hyperlipidemia) 03/19/2018 Hypothyroidism 03/19/2018 Morbid obesity with BMI of 45.0-49.9, adult (HCC) 03/19/2018 Nonischemic cardiomyopathy (HCC) 03/19/2018 Type II diabetes mellitus ([facility]) 03/19/2018 Mobility Progressive Mobility Level: Walk in [...] Bathroom Toilet: Standard Prior Function Level Of Arroyo: Independent with ADLs and functional transfers Lives [...] Bed mobility, Stairs, Ambulation Therapist: Beth HEBERT/Micki [id number] Date: 03/28/2018 * Antonino Chand, RT - [...] Date: 03/28/2018 Fall AC=Airway clearance AM=Aerosolized medication BA=Branch aerosol DB&C=Deep breathe & cough FEV1=Forced expiratory volume in first second) IC=Inspiratory capacity LE=Lung expansion MDI=Metered dose inhaler Neb=Nebulizer O2=Oxygen Oxim=Oximetry PEFR=Peak expiratory flow rate ADVERTISING SALES ASSOCIATE=Rapid Response Team * Tomasa Costa, PT - [...] questions or concerns. Monica Coello PA-C Pager [phone] * Philippe Aguero MD - 03/27/2018 4:26 [...] fully evaluated, and discussed patient with the [facility] ICU team. The patient is critically ill [...] Units / sodium bicarbonate 650 mg(#) PRN (Pinked Edge Sewing Machine Operator from Rx) Vital Signs: Last Filed Vital Signs: 24 Hour Range BP: 150/70 (03/27 1500) Temp: 36.6 C (97.8 F) (03/27 1500) Pulse: 75 (03/27 1500) Respirations: 12 PER MINUTE (03/27 1500) SpO2: 98 % (03/27 1500) O2 Delivery: Nasal Cannula (03/27 1500) Weight: 95.5 kg (210 lb 8.6 oz) (03/27 040) BP: (108-172)/(48-93) Temp: [36.4 C (97.5 F)-36.8 [...] radiology reviewed. Jorge A Acosta MD Pager [phone] * Shar Yousif MBBS - 03/27/2018 11:59 [...] on therapy due to hypotension DM - VISITOR SERVICES REPRESENTATIVE levemir 18 units BID, metformin and Januvia - 24 hour insulin requirement 195 units, 75 % ~ 150 units > Will schedule for 35 units lantus and 23 units novolog TID w/ meals, HDCF until NPO HLD - VISITOR SERVICES REPRESENTATIVE simvastatin > Continue > Lipid profile (03/19/18): [...] seen and discussed with Dr. Aguero. Myles [facility] Internal Medicine / PGY-2 Pager [phone] Subjective: Farheen Gutierres is a 68 y.o. [...] lower extremities LABS: Recent Labs 03/24/18 1545 03/24/18 2111 03/25/18 0255 03/25/18 1640 03/26/18 0430 03/26/18 1700 [...] 2.1 2.1 2.0 Recent Labs 03/24/18 1545 03/25/18 0255 03/25/18 1640 03/26/18 0430 03/26/18 1700 03/27/18 0515 WBC -- 9.8 -- 9.4 -- [...] 20,000 Units/ sodium bicarbonate 650 mg(#) PRN (Pinked Edge Sewing Machine Operator from Rx) Associated attestation - Philippe Aguero [...] patient 1 time Therapist: Coreen Eason MS, L/CCC-GUEST RELATIONS AGENT, [id number] Date: 03/27/2018 * Shahida Patterson, PT - [...] intervention as indicated. Therapist: Beth Ardon OTR/L [id number] Date: 03/27/2018 * sIa Hackett, RN - 03/27/2018 6:37 AM CDT Formatting [...] hospitalization): To get my ICD placed today. long term care phlebotomist heart failure goals identified by the patient: [...] and pericarditis Clin Microbiol Rev v.16(2); 2002 [id number] J Clin Microbiol. 2010;49(5):2072-3 Urine culture positive [...] dobutamine. Successful cardioversion from a fib to SR earlier today. Had cardiac PET. Observe off of antibiotics. Pacemaker/defibrillator for 5/ (tentative). ID will follow from a distance. [...] cardiology on 03/18/18 in transfer for from [facility] in [place], [place] for cardiogenic shock which occurred after [...] sought evaluation at her local hospital in [place], [place]. There she was noted to be in atrial fibrillation with RVR and was therefore promptly transferred to [facility] in [place], [place]. According to her while at [facility] the patient deteriorated abruptly with a blood [...] and a normal coronary angiogram (done at [facility]). At the time of ID consultation on 03/23/18, the most recent echocardiogram was on 03/21/18. This was a technically difficult study but showed severely reduced LV systolic function with an estimated EF of 20% and severe, global hypokinesis. The right ventricle was moderately enlarged and also showed decreased systolic function. There was trace mitral valve regurgitation and redt-ae-ozupffhs tricuspid valve regurgitation. Neither the AV nor [...] back a cold from a trip to [place] and on about 03/13 the patient told [...] mcg 125 mcg Per NG tube QDAY(07) LIDOCAINE HCL 10 MG/ML (1 %) IJ [...] Units / sodium bicarbonate 650 mg(#) PRN (Pinked Edge Sewing Machine Operator from Rx) Physical Examination Vital Signs: Last [...] images viewed. Impression: Mejia Rivas MD Pager [phone] Infectious Diseases Faculty * Breanna Puckett, MYRIAM - 03/26/2018 1:53 PM CDT CLINICAL NUTRITION Clinical Nutrition Follow-Up Summary Nutrition Assessment of Patient: Malnutrition Assessment: Adequately nourished prior to admission Current Oral Intake: NPO Estimated Calorie Needs: 1086-0013 (25-28 kcals/kg per DBW 69.9kg) Estimated Protein [...] for regular diet with thin liquids by GUEST RELATIONS AGENT on 03/25. Pt was on FLD +nectar thick liquids yesterday; appears intake limited. Pt has been off unit during attempts to see today. NPO today for cardiac PET this AM and then planned YESI with cardioversion. Tentative plan for pacemaker/defibrillator tomorrow. Note weight down 17.5kg, but is net negative 21.9L per I/o. Recommendation: PO diet textures per GUEST RELATIONS AGENT recs; goal diet of 60g carb/meal consistent [...] 72 Hours Breanna Puckett MA, RD, LD, [facility] *[phone] * Philippe Aguero MD - 03/26/2018 [...] are pending the YESI and cardioversion results. Saad burris talk with the patient and her . And answered all of the questions. Philippe Aguero MD * Isis Luna, RN - 03/26/2018 1:05 PM CDT Formatting of this note may be different from the original. Pre-Operative Assessment for YESI or Cardioversion Date of Service: 03/26/2018 Farheen Gutierres is a 68 y.o. y.o. female. : 1950 MRN# : [id number] Procedure to be performed: YESI and Cardioversion [...] was not hospitalized for this. Entered by oRb GARRETT on 03/23/18 Vitals Estimated body mass [...] result Ordering provider: Shar Yousif MBBS 03/19/18 2232 Resulting lab: MAIN LAB Specimen Information Source Collected On Blood 03/19/18 9698 Components Component Value Flag Battery Name BLOOD [...] fully evaluated, and discussed patient with the [facility] ICU team. The patient is critically ill [...] (BUMEX) tablet 4 mg 4 mg Oral BID(-17) digoxin (LANOXIN) injection 250 mcg 250 mcg [...] 20,000 Units/ sodium bicarbonate 650 mg(#) PRN (Pinked Edge Sewing Machine Operator from Rx) Vital Signs: Last Filed Vital Signs: 24 Hour Range BP: 123/52 (03/26 1200) Temp: 36.5 C (97.7 F) (03/26 1200) Pulse: 101 (03/26 1200) Respirations: 12 PER MINUTE (03/26 1200) SpO2: 94 % (03/26 1200) O2 Delivery: Nasal Cannula (03/26 1200) Weight: 98.5 kg (217 lb 2.5 oz) (03/26 600) BP: (99-141)/(42-98) Temp: [36.5 C (97.7 F)-36.8 [...] Procedures Review: Pertinent radiology reviewed. Jorge A Acosat MD Pager [phone] * Clare Mccarthy, DIEGO-CHIEF MEDICAL DIRECTOR - 03/26/2018 12:11 PM CDT Formatting of [...] no known history per the patient - [id number] Score 5, on Eliquis 5 mg bid [...] follow along with you. Clare Mccarthy NP-C ([facility] [phone]) Heart Rhythm Management ([facility] [phone]) Medicare attestation Subjective: Awake and alert up [...] 20,000 Units/ sodium bicarbonate 650 mg(#) PRN (Pinked Edge Sewing Machine Operator from Rx) Objective Vital Signs: Last Filed Vital Signs: 24 Hour Range BP: 120/84 (03/26 1100) Temp: 36.7 C (98 F) (03/26 904) Pulse: 113 (03/26 1100) Respirations: 8 PER MINUTE (03/26 1100) SpO2: 97 % (03/26 1100) O2 Delivery: Nasal Cannula (03/26 1100) SpO2 Pulse: 124 (03/26 1100) BP: (99-141)/(42-98) Temp: [36.6 C (97.8 F)-36.8 C (98.3 F)] Pulse: [76-121] Respirations: [8 PER MINUTE-19 PER MINUTE] SpO2: [91 %-98 %] O2 Delivery: Nasal Cannula Vitals: 03/24/18 0600 03/25/18 0500 03/26/18 0600 [...] NSVT up to 4 beats in duration LUIS Lopez (pgr [phone]) * Ashwinijean claudeJessika - 03/26/2018 12:06 PM CDT General Office Associate Note: Admit Date: 03/18/2018 Reason for visit: Follow up spiritual support Synopsis of visit: General Office Associate visited in the hallway with patient's , Niharika, who talked about the progress patient is making. is a fire hydrant mechanic and talked about the importance of understanding patient's condition. seemed to be coping and appears positive about patient's progress. General Office Associate visited briefly with patient who was sitting in a chair. She talked about tests/procedures she is having today and her hope to be able to eat and drink soon. Patient expressed her hope that her situation is improving. General Office Associate listened empathically, offering support and words of encouragement. General Office Associate affirmed the strength of patient and 's relationship. General Office Associate will continue to follow for spiritual and emotional support. The spiritual care team is available as needed, 18/06, through the campus switchboard ([phone]). For immediate response, please page [phone]. For a response within 24 hours, please submit an order in O2 for a general manager land department consult or call the administrative voicemail at [phone]. Please page or use consult order if patient or family requests visit. Date/Time: User: Pager: [phone] 03/26/2018 12:06 PM Beth Mendez - 03/26/2018 11:05 AM CDT Formatting of this note may be different from the original. OCCUPATIONAL THERAPY PROGRESS NOTE Patient Name: [facility] Room/Bed: [place] [address] Admitting Diagnosis: cardiogenic shock Cardiogenic shock (HCC) [...] Bathroom Toilet: Standard Prior Function Level Of Arroyo: Independent with ADLs and functional transfers Lives [...] Bed mobility, Stairs, Ambulation Therapist: Beth HEBERT/Micki [phone] Date: 03/26/2018 * Tomasa Costa, PT - [...] - follow repeat cx till final - EYSI before cardioversion should help rule out any vegetations, GI Possible Shock liver vs congestive hepatopathy vs STENE -resolved - Supportive care as above - [...] on therapy due to hypotension DM - VISITOR SERVICES REPRESENTATIVE levemir 18 units BID, metformin and Januvia - 24 hour insulin requirement 195 units, 75 % ~ 150 units > Will schedule for 35 units lantus and 23 units novolog TID w/ meals, HDCF until NPO HLD - VISITOR SERVICES REPRESENTATIVE simvastatin > Continue > Lipid profile (03/19/18): [...] Shar Yousif Internal Medicine / PGY-2 Pager [phone] Subjective: Farheen Gutierres is a 68 y.o. [...] Intake/Output Summary (Last 24 hours) at 03/26/18 0823 Last data filed at 03/26/18 07 Gross per 24 hour Intake 532.75 ml [...] Units/ sodium bicarbonate 650 mg (#) PRN (Pinked Edge Sewing Machine Operator from Rx) Associated attestation - Philippe Aguero [...] patient (Short Term=during hospitalization): To breathe easier long term care phlebotomist heart failure goals identified by the patient: [...] fully evaluated, and discussed patient with the [facility] ICU team. The patient is critically ill [...] mL IV drip (std conc) 0.5 mg/hr (03/25/18799) DOBUTamine (DOBUTREX) 1,000 mg in sodium chloride 0.9% (NS) 250 mL IV drip ( std conc) 2 mcg/kg/min (03/25/18799) PRN and Respiratory Meds:acetaminophen Q4H PRN, aluminum/magnesium hydroxide Q4H PRN, carboxymethylcellulose PRN, pancrelipase 20,000 Units/ sodium bicarbonate 650 mg(#) PRN (Pinked Edge Sewing Machine Operator from Rx) Vital Signs: Last Filed Vital [...] radiology reviewed. Jorge A Acosta MD Pager [phone] * Mary Maguire RN - 03/25/2018 3:42 [...] on therapy due to hypotension DM - VISITOR SERVICES REPRESENTATIVE levemir 18 units BID, metformin and Januvia - 24 hour insulin requirement 195 units, 75 % ~ 150 units > Will schedule for 35 units lantus and 23 units novolog TID w/ meals, HDCF until NPO HLD - VISITOR SERVICES REPRESENTATIVE simvastatin > Continue > Lipid profile (03/19/18): [...] seen and discussed with Dr. Jones. Myles Mdobdulio Internal Medicine / PGY-2 Pager [phone] Subjective: Farheen Gutierres is a 68 y.o. [...] Units/ sodium bicarbonate 650 mg (#) PRN (Pinked Edge Sewing Machine Operator from Rx) Associated attestation - Philippe Aguero [...] Pt declining to put dentures in during GUEST RELATIONS AGENT visit. Pt exhibits moderately prolonged yet thorough [...] / RECOMMENDATIONS: Continue treatment daily. Therapist: Micki Cates/LARRY-GUEST RELATIONS AGENT (Pager [phone]; Voalte: [phone]) Date: 03/25/2018 * Mulu Rodney, RT - [...] Date: 03/25/2018 Fall AC=Airway clearance AM=Aerosolized medication BA=Branch aerosol DB&C=Deep breathe & cough FEV1=Forced expiratory volume in first second) IC=Inspiratory capacity LE=Lung expansion MDI=Metered dose inhaler Neb=Nebulizer O2=Oxygen Oxim=Oximetry PEFR=Peak expiratory flow rate ADVERTISING SALES ASSOCIATE=Rapid Response Team * Tomasa Costa, PT - 03/25/2018 9:56 AM CDT PHYSICAL [...] OCCUPATIONAL THERAPY PROGRESS NOTE Patient Name: Farheen Lujanronnie Room/Bed: [facility] Admitting Diagnosis: cardiogenic shock Cardiogenic shock (HCC) Past Medical History: Diagnosis Date Essential hypertension 03/19/2018 HLD (hyperlipidemia) 03/19/2018 Hypothyroidism 03/19/2018 Morbid obesity with BMI of 45.0-49.9, adult ([facility]) 03/19/2018 Nonischemic cardiomyopathy ([facility]) 03/19/2018 Type II diabetes mellitus ([facility]) 03/19/2018 Mobility Progressive Mobility Level: Active transfer [...] Bathroom Toilet: Standard Prior Function Level Of Arroyo: Independent with ADLs and functional transfers Lives [...] Bed mobility, Stairs, Ambulation Therapist: Beth HEBERT/Micki [id number] Date: 03/25/2018 * Isa Hackett RN - [...] (Short Term=during hospitalization): To get more comfortable correction heart failure goals identified by the patient: [...] fully evaluated, and discussed patient with the [facility] ICU team. The patient is critically ill [...] Anaya MD Date: 03/24/2018 __ Subjective: Farheen Yandy is a 68 y.o. female. Stable night. [...] IV drip ( std conc) 3 mcg/kg/min (03/24/181199) insulin regular (NOVOLIN R) 100 Units in sodium chloride 0.9% (NS) 100 mL IV drip (std conc) 8.5 Units/hr (03/24/18 0919) PRN and Respiratory Meds:acetaminophen Q4H PRN, aluminum/magnesium hydroxide Q4H PRN, carboxymethylcellulose PRN, pancrelipase 20,000 Units/ sodium bicarbonate 650 mg(#) PRN (Pinked Edge Sewing Machine Operator from Rx) Vital Signs: Last Filed Vital Signs: 24 Hour Range BP: 128/89 (03/24 1400) ABP: 128/67 (03/24 1215) Temp: 36.7 C (98.1 F) (03/24 1200) Pulse: 126 (03/24 1400) Respirations: 28 PER MINUTE (03/24 1400) SpO2: 97 % (03/24 1400) O2 Delivery: Nasal Cannula (03/24 121) Weight: 105.7 kg (233 lb 0.4 oz) [...] Pertinent radiology reviewed. Bravo Anaya MD Pager [phone] * Tiffany Moss - 03/24/2018 11:05 AM CDT SPEECH-LANGUAGE PATHOLOGY [...] / RECOMMENDATIONS: Continue treatment daily. Therapist: Micki Cates/CCC-GUEST RELATIONS AGENT (Pager [phone]; Voalte: [phone]) Date: 03/24/2018 * Beth Ardon - 03/24/2018 10:29 AM CDT Formatting of this note may be different from the original. OCCUPATIONAL THERAPY ASSESSMENT NOTE Patient Name: Farheen Gutierres Room/Bed: [place] [address] Admitting Diagnosis: cardiogenic shock Cardiogenic shock (HCC) [...] Bathroom Toilet: Standard Prior Function Level Of Arroyo: Independent with ADLs and functional transfers Lives [...] above evaluation and clinical judgment. Therapist: Beth Ardon OTR/Micki [id number] Date: 03/24/2018 * Shivani Bustos MBBS - [...] on therapy due to hypotension DM - VISITOR SERVICES REPRESENTATIVE levemir 18 units BID, metformin and Januvia > Hold oral hypoglycemics > Continue insulin gtt for now, transition to SC insulin tomorrow > A1c (03/19/18): 6.6% HLD - VISITOR SERVICES REPRESENTATIVE simvastatin > Continue > Lipid profile (03/19/18): total cholesterol 66, trigs 35, HDL 36, LDL 23 Fluids, Electrolytes, Nutrition: no IVF, replace prn, FLD Prophylaxis:NO heparin products ,Eliquis Code: full Lines:arterial line, OG tube, Mc catheter, CVC, rectal tube Disposition: Continue admission to CICU ( transfer out tomorrow) Patient seen and discussed with Dr. Jones. ESTELA Marroquin PGY-2 Internal Medicine 5424 Subjective: Farheen Gutierres is a 68 y.o. female. No overnight events. She was extubated 03/22 , she continues to complain of some sore throat, and back pain, and mild cough with some, her legs are not as sore today . Objective: Vital Signs: Last Filed Vital Signs: 24 Hour Range Temp: 36.5 C (97.7 F) (03/24 800) Pulse: 109 (03/24 0800) Respirations: 30 PER MINUTE (03/24 800) SpO2: 97 % (03/24 800) O2 Delivery: Nasal Cannula (03/24 800) SpO2 Pulse: 119 (03/24 800) ABP: (112-133)/(54-66) Temp: [36.4 C (97.6 F)-36.7 C (98.1 F)] Pulse: [86-135] Respirations: [17 PER MINUTE-30 PER MINUTE] SpO2: [94 %-97 %] O2 Delivery: Nasal Cannula Intake/Output Summary (Last 24 hours) at 03/24/18 0821 Last data filed at 03/24/18 0800 Gross per 24 hour Intake 2558.95 ml [...] 1.9 2.0 1.8 Recent Labs 03/21/18 1308 03/21/18200003/22/18 0300 03/22/18 0500 03/22/18 [...] mg/dL). Vitals: 03/22/18 0500 03/23/18 0600 03/24/18 0600 [...] 200 mL infusion 0.5 mg/ min (03/24/18 0800) bumetanide (BUMEX) 24 mg in empty IV bag 96 mL IV drip (std conc) 0.5 mg/hr (03/24/18 08) DOBUTamine (DOBUTREX) 1,000 mg in sodium chloride 0.9% (NS) 250 mL IV drip ( std conc) 3 mcg/kg/min (03/24/18 0800) insulin regular (NOVOLIN R) 100 Units in sodium chloride 0.9% (NS) 100 mL IV drip (std conc) 7 Units/hr (03/24/18 0712) Prnacetaminophen Q4H PRN, aluminum/magnesium hydroxide Q4H PRN, carboxymethylcellulose PRN, pancrelipase 20,000 Units/ sodium bicarbonate 650 mg (#) PRN (Pinked Edge Sewing Machine Operator from Rx) Associated attestation - Alem Jones [...] dysfunction still not clear, LHC normal at [place], biopsy here negative 3. RV failure, suspect [...] antibody for stable thrombocytopenia, negative * Chasity Lobo RN - 03/24/2018 6:15 AM CDT Formatting of [...] Term=during hospitalization): "To be able to eat" long term care phlebotomist heart failure goals identified by the patient: [...] fully evaluated, and discussed patient with the [facility] ICU team. The patient is critically ill [...] iso-osm 200 mL infusion 0.5 mg/ min (03/23/181599) bumetanide (BUMEX) 24 mg in empty IV [...] 20,000 Units/ sodium bicarbonate 650 mg(#) PRN (Pinked Edge Sewing Machine Operator from Rx) Vital Signs: Last Filed Vital Signs: 24 Hour Range ABP: 122/65 (03/23 1600) Temp: 36.6 C (97.8 F) (03/23 1600) Pulse: 111 (03/23 1600) Respirations: 19 PER MINUTE (03/23 1600) SpO2: 96 % (04/28 1600) O2 Delivery: Nasal Cannula (03/23 1600) Weight: 111.1 kg (244 lb 14.9 oz) (03/23 0600) ABP: (103-142)/(52-71) Temp: [36.4 C (97.6 F)-37.1 [...] Pertinent radiology reviewed. Bravo Anaya MD Pager [phone] * Patti Singh RN - 03/23/2018 3:20 [...] on therapy due to hypotension DM - VISITOR SERVICES REPRESENTATIVE levemir 18 units BID, metformin and Januvia > Hold oral hypoglycemics > Continue insulin gtt for now > MDCF > A1c (03/19/18): 6.6% HLD - VISITOR SERVICES REPRESENTATIVE simvastatin > Continue > Lipid profile (03/19/18): total cholesterol 66, trigs 35, HDL 36, LDL 23 Fluids, Electrolytes, Nutrition: no IVF, replace prn, swallow eval pending Prophylaxis:NO heparin products ,start on Eliquis Code: full Lines:arterial line, OG tube, Mc catheter, CVC Disposition: Continue admission to CICU Patient seen and discussed with Dr. Jones. ESTELA Marroquin PGY-2 Internal Medicine 5490 Subjective: Farheen Gutierres is a 68 y.o. [...] nystatin Topical BID pantoprazole 40 mg Intravenous BID(10-16) PARoxetine 40 mg Per NG tube QDAY [...] Units/ sodium bicarbonate 650 mg (#) PRN (Pinked Edge Sewing Machine Operator from Rx) Associated attestation - Alem Jones [...] fully evaluated, and discussed patient with the [facility] ICU team. The patient is critically ill [...] 15 mL 15 mL Swish & Spit BID( -) digoxin (LANOXIN) injection 250 mcg 250 [...] mL IV infusion (dbl conc) 1,400 Units/hr (03/22/181924) insulin regular (NOVOLIN R) 100 Units in sodium chloride 0.9% (NS) 100 mL IV drip (std conc) 2 Units/hr (03/22/181923) norepinephrine (LEVOPHED) 16 mg in sodium chloride [...] Units/ sodium bicarbonate 650 mg(# ) PRN (Pinked Edge Sewing Machine Operator from Rx) Vital Signs: Last Filed Vital [...] 0-10 (Pain 1): (not recorded) Vitals: 03/21/18 0506 03/21/18 1124 03/22/18499 Weight: 115 kg (253 lb 8.5 oz) 115 kg (253 lb 8.5 oz) 113.3 kg (249 lb 12.5 oz) Critical Care Vitals: Vigileo SVI (Calculated): 40 (03/22/180) SVRI (Calculated): (!) 918 (03/22/18 0500) ICP Monitoring: PA Catheter: PA Catheter Only PA Pressure: (!) 64/41 (03/22/18 1104) PA Mean (mm Hg): (!) 49 mm Hg (03/22/18 1104) CO: (!) 10.06 (03/22/18 0500) CO Method: Indirect Janay Calculation (03/22/18 0500) CI: (!) 4.53 (03/22/18 0500) SVR (Calculated): (!) 443 (03/22/18 0500) SVRI (Calculated): (!) 918 (03/22/18 0500) SV (Calculated): 90 (03/22/18 050) SVI (Calculated): 40 (03/22/18 0500) Hemodynamics/Oxycalcs: Hemodynamics/Oxycalcs Device Type: Standard PA Catheter (03/22/18499) PA Pressure: (!) 64/41 (03/22/18 1104) PA Mean (mm Hg): (!) 49 mm Hg (03/22/18 1104) CVP: (!) 31 MM HG (03/22/18 1104) CO: (!) 10.06 (03/22/18 0500) CO Method: Indirect Janay Calculation (03/22/180) CI: (!) 4.53 (03/22/18 0500) SVR (Calculated): (!) 443 (03/22/18 0500) SVRI (Calculated): (!) 918 (03/22/18 0500) RVSWI (Calculated): 10 (03/22/18 0500) SV (Calculated): 90 (03/22/18 0500) SVI (Calculated): 40 (03/22/18 0500) Intake/Output Summary: (Last 24 hours) Intake/Output Summary (Last 24 hours) at 03/22/182230 Last data filed at 03/22/18 2200 Gross [...] (03/22/18 1610) POC Glucose (Download): (!) 154 (03/22/182119) Radiology and Other Diagnostic Procedures Review: Pertinent radiology reviewed. Bravo Anaya MD Pager [phone] * Iris Lyn, PHARMD - 03/22/2018 10:18 [...] needed. Iris Lyn, PHARMD 03/22/2018 * Angelica Davis, RD - 03/22/2018 4:32 PM CDT CLINICAL NUTRITION Clinical Nutrition Follow-Up Summary Nutrition Assessment of Patient: Malnutrition Assessment: Adequately nourished prior to admission Current Oral Intake: NPO Estimated Calorie Needs: 4419-3511 (25-28 kcals/kg per DBW 69.9kg) Estimated Protein [...] Nutren 1.5 @35 ml/hr + 4 pkts Joceline Pt is a 68 y.o. female with [...] Not met;Ongoing Angelica Davis MS, RD, LD, [facility] Pager [phone] Office [phone] * Shivani Bustos MBBS - 03/22/2018 4:00 [...] future ' Acute Hypoxic Respiratory Failure- extubated 03/22.18 Pulmonary edema - Intubated at outside hospital [...] on therapy due to hypotension DM - VISITOR SERVICES REPRESENTATIVE levemir 18 units BID, metformin and Januvia > Hold oral hypoglycemics > Continue insulin gtt for now > MDCF > A1c (03/19/18): 6.6% HLD - VISITOR SERVICES REPRESENTATIVE simvastatin > Continue > Lipid profile (03/19/18): total cholesterol 66, trigs 35, HDL 36, LDL 23 Fluids, Electrolytes, Nutrition: no IVF, replace prn, swallow eval pending Prophylaxis: heparin gtt Code: full Lines:arterial line, OG tube, Mc catheter, CVC Disposition: Continue admission to CICU Patient seen and discussed with Dr. Jones. ESTELA Marroquin PGY-2 Internal Medicine 8756 Subjective: Farheen Gutierres is a 68 y.o. [...] 20,000 Units/ sodium bicarbonate 650 mg(#) PRN (Pinked Edge Sewing Machine Operator from Rx) Associated attestation - Alem Jones [...] Assessment 1. Biventricular failure, etiology unclear, outside [facility] normal, endomyocardial biopsy negative for myocarditis, [...] and examining the patient. * Laura Rascon, - 03/22/2018 2:32 PM CDT Formatting of [...] Cell Crisis OR Anemia (<10) OR Acute MA (02 & oxim) Patient Assessment * Respiratory [...] Date: 03/22/2018 Fall AC=Airway clearance AM=Aerosolized medication BA=Branch aerosol DB&C=Deep breathe & cough FEV1=Forced expiratory volume in first second) IC=Inspiratory capacity LE=Lung expansion MDI=Metered dose inhaler Neb=Nebulizer O2=Oxygen Oxim=Oximetry PEFR=Peak expiratory flow rate ADVERTISING SALES ASSOCIATE=Rapid Response Team * Prisca Zapien RN - 03/22/2018 2:[address] Mehul at bedside due to right IJ dressing [...] Continue Treatment Daily. Prognosis: Good NOMS Dysphagia Ratin9-Wloxklaysy-Zuantu Dysphagia -Not able to swallow safely by mouth for nutrition/hydration but may take some consistency w/ consistent max cues in therapy only. Alternative method of feeding required. Results Reported to Physician: Yes Objective* Relevant Med Background: Farheen Gutierres is a 68 y.o. female who we are asked to see for evaluation of heart failure. Patient was transferred from [facility] for refractory heart failure. Patient is [...] ongoing swallow evalution provided min cues. Therapist:Micki Cates/CCC-GUEST RELATIONS AGENT (Pager [phone]; Voalte: [phone]) Date:03/22/2018 * Prisca Zapien RN - 03/22/2018 11:[address] Jones, Dr. Anaya and team at bedside. Order to decrease dobutamine to 4 mcg/kg/min now and decrease to 3 mcg/kg/min in 4 hours and leave it there today if tolerated. PT/OT and ST ordered. DC PA catheter and FICKs. * Karen Nichols, TREVOR - 03/22/2018 5:56 AM CDT Formatting of [...] 34 mm Hg RVSWI (Calculated) 10 Dr. Johnson notified of above results. Continue dobutamine at 5 mcg/kg/min. Continue to monitor. * Prisca Zapien RN - 03/21/2018 6:36 PM CDT RN spoke [...] fully evaluated, and discussed patient with the [facility] ICU team. The patient is critically ill [...] 15 mL 15 mL Swish & Spit BID( -) digoxin (LANOXIN) injection 250 mcg 250 [...] Units/ sodium bicarbonate 650 mg(# ) PRN (Pinked Edge Sewing Machine Operator from Rx) Vital Signs: Last Filed Vital Signs: 24 Hour Range BP: 114/58 (03/21 1124) ABP: 97/49 (03/21 1700) Temp: 36.6 C (97.9 F) (03/21 1700) Pulse: 141 (03/21 1700) Respirations: 15 PER MINUTE (03/21 1700) SpO2: 94 % (03/21 1700) O2 Delivery: Endotracheal Tube (Oral) (03/21 1500) Height: 167.6 cm (66") (03/21 1124) Weight: 115 kg (253 lb 8.5 oz) (03/21 1124) BP: (114)/(58) ABP: (92-150)/(45-101) Temp: [35.8 C [...] Care Vitals: Vigileo SVI (Calculated): 40 (03/21/18 152) SVRI (Calculated): (!) 1023 (03/21/181519) ICP Monitoring: PA Catheter: PA Catheter Only PA Pressure: (!) 49/ (03/21/181699) PA Mean (mm Hg): (!) 34 mm Hg (03/21/18 170) CO: (!) 8.9 (03/21/18 152) CO Method: Indirect Janay Calculation (03/21/181519) CI: 3.99 (03/21/18 1520) SVR (Calculated): (!) 470 (03/21/18 1520) SVRI (Calculated): (!) 1023 (03/21/18 152) SV (Calculated): 90 (03/21/18 1520) SVI (Calculated): 40 (03/21/18 1520) Hemodynamics/Oxycalcs: Hemodynamics/Oxycalcs Device Type: Standard PA Catheter (03/21/181519) PA Pressure: (!) 49/27 (04/26/18 1700) PA Mean (mm Hg): (!) 34 mm Hg (03/21/181699) CVP: (!) 15 MM HG (03/21/181699) CO: (!) 8.9 (03/21/181519) CO Method: Indirect Janay Calculation (03/21/181519) CI: 3.99 (03/21/181519) SVR (Calculated): (!) 470 (03/21/181519) SVRI (Calculated): (!) 1023 (03/21/181519) RVSWI (Calculated): 10 (03/21/181519) SV (Calculated): 90 (03/21/181519) SVI (Calculated): 40 (03/21/181519) Intake/Output Summary: (Last 24 hours) Intake/Output Summary (Last 24 hours) at 03/21/181742 Last data filed at 03/21/181699 Gross per 24 hour Intake 2153.43 ml [...] Pertinent radiology reviewed. Bravo Anaya MD Pager [phone] * Prisca Zapien RN - 03/21/2018 5:39 [...] 470 SVRI (Calculated) (!) 1023 * Prisca Zapein RN - 03/21/2018 4:29 PM CDT Pt in atrial fib/atrial tachy in 190s. Pt resting comfortably with no triggers to increase HR. SBP decreased to 80s and MAP mid-50s. Patches placed and amiodarone ordered by Dr. Carver. Pt placed on previous ventilator setting and propofol re-started. Will start amiodarone infusion after bolus is finished infusing. * Jessika Cruz - 03/21/2018 1:45 PM CDT General Office Associate Note: Admit Date: 03/18/2018 Reason for visit: Follow up spiritual support for family Synopsis of visit: General Office Associate talked with patient's , Niharika, in the hallway. seemed relieved as he talked about the progress patient is making. He also said that he has a cousin (Laura) who [place] who is helpful and supportive; she is also a nurse. seemed both in good spirits and hopeful about patient's situation. General Office Associate listened actively, offering support and words of encouragement. General Office Associate shared in 's positive news regarding patient's situation. General Office Associate will continue to follow for spiritual and emotional support. The spiritual care team is available as needed, 18/06, through the campus switchboard ([phone]). For immediate response, please page [phone]. For a response within 24 hours, please submit an order in O2 for a general manager land department consult or call the administrative voicemail at [phone]. Please page or use consult order if family requests visit. Date/Time: User: Pager: [phone] 03/22/2018 7:49 AM Jessika Cruz * Prisca Zapien RN - 03/21/2018 11:[address] Jones [...] on therapy due to hypotension DM - VISITOR SERVICES REPRESENTATIVE levemir 18 units BID, metformin and Januvia > Hold oral hypoglycemics > Continue insulin gtt for now > MDCF > A1c (03/19/18): 6.6% HLD - VISITOR SERVICES REPRESENTATIVE simvastatin > Continue > Lipid profile (03/19/18): total cholesterol 66, trigs 35, HDL 36, LDL 23 Fluids, Electrolytes, Nutrition: no IVF, replace prn, tube feeds Prophylaxis: prophylactic heparin Code: full Lines: PA catheter, arterial line, OG tube, ETT, Mc catheter, CVC Disposition: Continue admission to CICU Patient seen and discussed with Dr. Jones. Wayne Rivera M.D. Internal Medicine/Psychiatry PGY-1 Pager: [phone] Subjective: Farheen Gutierres is a 68 y.o. [...] nystatin Topical BID pantoprazole 40 mg Intravenous BID(11-) PARoxetine 40 [...] 20,000 Units/ sodium bicarbonate 650 mg(#) PRN (Pinked Edge Sewing Machine Operator from Rx) Associated attestation - Alem Jones [...] volume excess. Biopsy negative for myocarditis. Outside [facility] normal. Will continue supportive measures 2. [...] fully evaluated, and discussed patient with the [facility] ICU team. The patient is critically ill [...] 15 mL Swish & Spit BID(8 -20) levothyroxine (SYNTHROID) tablet 125 mcg 125 mcg [...] (D5W) infusion ( std conc) 25 mcg/hr (03/20/181919) furosemide (LASIX) 500 mg/ 50 mL IV [...] 20,000 Units/ sodium bicarbonate 650 mg(#) PRN (Pinked Edge Sewing Machine Operator from Rx) Vital Signs: Last Filed Vital [...] (not recorded) Vitals: 03/19/18 0808 03/19/18 0900 03/20/18599 Weight: 116.8 kg (257 lb 8 oz) 115.7 kg (255 lb) 114.9 kg (253 lb 4.9 oz) Critical Care Vitals: Vigileo SVI (Calculated): 52 (03/20/181214) SVRI (Calculated): (!) 1341 (03/19/182234) ICP Monitoring: PA Catheter: PA Catheter Only PA Pressure: (!) 43/ (03/20/181999) PA Mean (mm Hg): (!) 32 mm Hg (03/20/181999) CO: (!) 8.12 (03/20/181214) CO Method: Indirect Janay Calculation (03/20/181214) CI: 3.66 (03/20/181214) SVR (Calculated): (!) 610 (03/19/182234) SVRI (Calculated): (!) 1341 (03/19/182234) SV (Calculated): (!) 116 (03/20/181214) SVI (Calculated): 52 (03/20/181214) Hemodynamics/Oxycalcs: Hemodynamics/Oxycalcs Device Type: Standard PA Catheter (03/20/181214) PA Pressure: (!) 43/ (03/20/181999) PA Mean (mm Hg): (!) 32 [...] 137 (03/20/182009) POC Glucose (Download): (!) 128 (03/20/18 3472) Radiology and Other Diagnostic Procedures Review: Pertinent radiology reviewed. Bravo Anaya MD Pager [phone] * Jaycee Mcnair RN - 03/20/2018 4:30 [...] Hemostasis at 1743. Will monitor. * Jaycee Mcnair RN - 03/20/2018 12:47 PM CDT Formatting of [...] on therapy due to hypotension DM - VISITOR SERVICES REPRESENTATIVE levemir 18 units BID, metformin and Jaanuvia > Hold oral hypoglycemics, switch levemir to Lantus > MDCF > A1c ordered > start insulin gtt due to steroid induced hyperglycemia HLD - VISITOR SERVICES REPRESENTATIVE simva > Continue > Lipid profile Fluids, Electrolytes, Nutrition: no IVF, replace prn, tube feeds Prophylaxis: heparin gtt Code: full Lines: PA catheter, arterial line, OG tube, ETT, mc catheter, CVC Disposition: CICU Pt was seen and discussed with ESTELA Thomas PGY-2 Internal Medicine 5454 Subjective: Farheen Gutierres is a 68 y.o. female.intubated and sedated this AM Objective: Vital Signs: Last Filed Vital Signs: 24 Hour Range BP: 112/50 (03/19 900) Temp: 36 C (96.8 F) (03/20 0700) Pulse: 76 (03/20 0816) Respirations: 15 PER MINUTE (03/20 0816) SpO2: 95 % (03/20 0816) O2 Delivery: Endotracheal Tube (Oral) (03/20 0400) SpO2 Pulse: 129 (03/20 0700) Height: 167.6 cm (66") (03/19 09) BP: (112)/(50) ABP: (80)/(49) Temp: [35.8 C (96.4 F)-37.3 C (99.1 F)] Pulse: [50-82] Respirations: [0 PER MINUTE-16 PER MINUTE] SpO2: [92 %-100 %] O2 Delivery: Endotracheal Tube (Oral) Intake/Output Summary (Last 24 hours) at 03/20/18 0851 Last data filed at 03/20/18 0800 Gross per 24 hour Intake 2703.05 ml [...] 20,000 Units/ sodium bicarbonate 650 mg(#) PRN (Pinked Edge Sewing Machine Operator from Rx), polyethylene glycol 3350 BID PRN [...] family * Karen Nichols RN - 03/20/2018 12:52 AM CDT Formatting of this note may be different from the original. 03/19/18 9923 Basic Hemodynamic Monitoring Device Type Standard PA [...] vasopressin 2.4 units/hr. Continue to monitor. * [place]'Elieser Cadena PHARMD - 03/19/2018 8:32 PM CDT Formatting of [...] Elieser Valdivia, PHARMD 03/19/2018 * Prisca Zapien, RN - 03/19/2018 6:[address] Anaya [...] fully evaluated, and discussed patient with the [facility] ICU team. The patient is critically ill [...] 0.9% (NS) 100 mL IV infusion Stopped (03/19/184) DOBUTamine (DOBUTREX) 1,000 mg in sodium chloride 0.9% (NS) 250 mL IV drip ( std conc) 5 mcg/kg/min (03/19/181729) DOPamine 800 mg/D5W 250 mL infusion (dbl conc)(premade) fentaNYL citrate PF (SUBLIMAZE) 1,000 mcg in dextrose 5% (D5W) infusion ( std conc) 25 mcg/hr (03/19/181947) furosemide (LASIX) 500 mg/ 50 mL IV drip (max conc) 20 mg/hr (03/19/181729 ) heparin (porcine) 20,000 Units in dextrose [...] 20,000 Units/ sodium bicarbonate 650 mg(#) PRN (Pinked Edge Sewing Machine Operator from Rx), polyethylene glycol 3350 BID PRN Vital Signs: Last Filed Vital Signs: 24 Hour Range BP: 112/50 (03/19 09) ABP: 108/55 (03/19 0139) Temp: 37.3 C (99.1 F) (03/19 2002) [...] recorded) Vitals: 03/18/18 2300 03/19/18 0808 03/19/18 09 Weight: 116 kg (255 lb 11.7 oz) [...] Pertinent radiology reviewed. Bravo Anaya MD Pager [phone] * Shivani Bustos MBBS - 03/19/2018 5:36 [...] on therapy due to hypotension DM - VISITOR SERVICES REPRESENTATIVE levemir 18 units BID, metformin and Jaanuvia > Hold oral hypoglycemics, switch levemir to Lantus > MDCF > A1c ordered > start insulin gtt due to steroid induced hyperglycemia HLD - VISITOR SERVICES REPRESENTATIVE simva > Continue > Lipid profile Fluids, Electrolytes, Nutrition: no IVF, replace prn, tube feeds Prophylaxis: heparin gtt Code: full Lines: PA catheter, arterial line, OG tube, ETT, mc catheter, CVC Disposition: CICU Pt was seen and discussed with ESTELA Thomas PGY-2 Internal Medicine 5482 Subjective: Farheen Gutierres [...] mg Intravenous Q12H* pantoprazole 40 mg Intravenous BID(-) PARoxetine 40 [...] 20,000 Units/ sodium bicarbonate 650 mg(#) PRN (Pinked Edge Sewing Machine Operator from Rx), polyethylene glycol 3350 BID PRN * Alem Jones MD - 03/19/2018 5:26 PM CDT Update Patient to syrup machine laborer today for RHC, endomyocardial biopsy with [...] will consider ECMO as backup * Prisca Zapien, RN - 03/19/2018 4:59 PM CDT Spoke with RN from infection control about positive parainfluenza3 positive result. Instructed to put patient in contact isolation and wear mask if doing any open procedures or open suctioning with ET tube. * Prisca Zapien, RN - 03/19/2018 3:11 PM CDT Pt to [...] Jessika Cruz - 03/19/2018 1:57 PM CDT General Office Associate Note: Admit Date: 03/18/2018 Reason for Visit: General Office Associate referral (1). General Office Associate met with patient's , Niharika. Patient is on a vent and balloon pump, not able to participate in visit. Farheen/Faith: said that neither he nor patient have a sikh affiliation and that its not an important part of their life. Source of Purpose/Meaning: , who is an industrial hygiene engineer, said that he and patient met in the when they were both serving in the [employer]. 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 also talked about the importance of grandchildren in their lives. said that his son from a previous relationship about 4 years ago, when his own son was about 9 years old. said that patient was able to quit work and help with this grandson. Their mgkfmxjz-iv-laf has remarried and has had another child; [...] led to patient's hospitalization and transfer to [facility]. seems to be focusing on details that [...] helpful. Support System: Patient and live in [place], [place]. said he does not have friends or relatives in the area to stay with. He does have a friend who works in the area who will be stopping by to visit later today. said he is updating people via text message. Interventions/Plan: General Office Associate listened empathically, offering support and attempting to normalize 's feelings related to uncertainty and helplessness. General Office Associate explored sources of meaning and coping for patient and . General Office Associate guided life and health review and affirmed the love patient and share. General Office Associate also encouraged to be attentive to his own self care. General Office Associate will continue to follow for spiritual and emotional support. Please page or use consult order if family requests visit. Date/Time: User: Pager: [phone] 03/19/2018 1:57 PM Jessika Cruz * Prisca Zapien RN - 03/19/2018 1:[address] Jones at bedside to discuss cardiac biopsy with . Heparin has been off; procedure to be performed this afternoon. Dr. Jones updated on minimal urine output response to lasix bolus and increases. No further changes or interventions at this time. * Prisca Zapien RN - 03/19/2018 1:[address] [...] MAP 65. Increase lasix to 20 mg/hr. Assembler For Puller Over Hand requested orders for Nystatin for excoriation and [...] on diltiazem gtt. She was transferred to [facility] for higher level of care. At [facility] amiodarone was added to Diltiazem for rate [...] and she was taken to the cardiac syrup machine laborer for left heart catheterization. She was [...] heart failure therapies she was transferred to [facility] by helicopter. Physical Exam: General: Intubated/sedated. [...] failure Marco Antonio Johnson MD CV Fellow #[id number] * Eva Gao RN - 03/19/2018 2:49 [...] 10%. Unknown baseline Major Complications or Comorbidities (MCFP): acute respiratory failure and cardiogenic shock NYHA functional class None, ACC Stage D (refractory HF requiring specialized interventions). She presents with signs of hypovolemia with left ventricular failure with signs of low flow state. Admission BNP: 350 Prior to admission diuretic regimen: 5mg/hr lasix gtt (OSH), VISITOR SERVICES REPRESENTATIVE HCTZ 50mg Goal Output: 1-2L/24hr Intake/Output: Entire [...] Yes Strict I/O. Standing scale daily weight. Power Plant Electrician consultation to discuss sodium restricted diet recommended. [...] on therapy due to hypotension DM - VISITOR SERVICES REPRESENTATIVE levemir 18 units BID, metformin and Jaanuvia > Hold oral hypoglycemics, switch levemir to Lantus > MDCF > A1c ordered HLD - VISITOR SERVICES REPRESENTATIVE simva > Continue > Lipid profile Fluids, Electrolytes, Nutrition: Replacing as needed Prophylaxis: Heparin therapeutic, SCDs Code: Full code (default) Disposition: Admit to CCU Patient stated goal: None, unknown Patient discussed with curriculum coach fellow. Shar Yousif Internal Medicine / PGY-2 Pager [phone] Chief Complaint: Evaluation and recommendations re: heart failure History of Present Illness: Farheen Gutierres is a 68 y.o. female who we are asked to see for evaluation of heart failure. Patient was transferred from [facility] for refractory heart failure. Patient is currently intubated, hence the history is relied from records outside and ED/EMS personal. Patient was initially seen at OSH and was then subsequently transferred to [facility] for management of her Atrial Fibrillation [...] medications and hence she was taken to [facility]. An IABP was inserted. Patient was [...] 68-year-old female transferred from outside hospital, [facility] in [place], [place]. Her is in the room, history obtained from her . Patient was in "normal" condition as recently as 72 hours ago. She had increasing abdominal fullness, distention, bloating with lack of bowel movement for 3-4 days and decreased urine output. This prompted initial evaluation at local hospital, [facility] (patient lives in [facility]). Upon arrival she was found to be in atrial fibrillation with RVR, she was promptly transferred to the [facility] in [place]. She was started on amiodarone and diltiazem, [...] CARDIAC CATH REPORT [facility] at [facility] CARDIAC CATHETERIZATION REPORT Page 2 FARHEEN Stovall : 1950 #: [id number] MR #/Billing ID #: [id number] / [id number] DATE: 03/19/2018 SLEEVE WHEEL MAKER: Ila Gray MD DICTATING PROVIDER: Kristian Caputo MD REFERRING PHYSICIAN: INTERVENTIONAL CUSTOMER SERVICE SPECIALIST: Kristian Caputo MD PROCEDURES PERFORMED: 1. Left IJ ultrasound-guided venous access. 2. Left IJ central line placement. 3. Right IJ 8-Kenyan Fast-Cath venous access. 4. Right heart catheterization. [...] PROCEDURE: The patient was brought into the syrup machine laborer intubated and deeply sedated. We then [...] right IJ central venous catheter for an 8-Kenyan Fast-Cath. Following this, we introduced a 7.5-Kenyan [place]-Mikel catheter which was serially advanced into the [...] THE ENDOMYOCARDIAL BIOPSY: We then introduced a 7-Kenyan bioptome through the 8-Kenyan venous sheath under fluoroscopic guidance in the AP and HEBREW projections. We obtained a total of 3 [...] and subsequently transferred her out of the syrup machine laborer. Dr. Gray was scrubbed and performed fall portions of the procedure, and supervised the rest of it as well. The [place] was left at 54 cm at the level of the hub. She will be transported to the ICU for further inotropic and diuretic management. FINAL IMPRESSION: 1. Severely reduced cardiac index with very high filling pressures. 2. Moderate pulmonary hypertension, as outlined above. 3. Continued inotropic and diuretic support per the Heart Failure Team in the ICU. Ila Gray MD PCG/MedQ /[id number] cc: in this encounter Consult Notes * Tamy Cota MD - 03/30/2018 10:15 AM CDT Associated Order(s): CONSULT REHABILITATION MEDICINE PHYSICIAN Formatting of this note may be different from the original. Physical Medicine & Rehabilitation Consult Note Date of Service: 03/30/2018 Farheen Gutierres is a 68 y.o. female. : 1950 Primary Insurance: [employer] QUINCY Secondary Insurance: MEDICARE Tertiary Insurance: Financial Class: [employer] Date of Admission: 03/18/2018 Referring Physician: Philippe Aguero MD Reason for Consult: evaluate for Post-Acute Rehab/Placement Precautions: Fall, Weight bearing Precautions: Progressive mobility Active Problems Acute decompensated heart failure Takotsubos Afif w/ RVR s/p ICD Impaired ADLS Thrombocytopenia Assessment & Plan Farheen Gutierres is a 68 y.o. female admitted to [facility] on 03/18/2018 with the following issues: [...] acute inpatient rehabilitation program. Recommendations: Cognition: Recommend GUEST RELATIONS AGENT for cog screen. Bowel: Last BM documented [...] discharge. Mejia Barrientos MD Rehab Consult Pager: [phone] ATTESTATION I personally performed the fall portions [...] insulin, HTN/HLD, Hypothyroidism who was admitted to [facility] 03/19 for management of cardiogenic shock [...] (BUMEX) tablet 2 mg 2 mg Oral BID(-) digoxin (LANOXIN) injection 125 mcg 125 mcg Intravenous QDAY insulin aspart U-100 (NOVOLOG FLEXPEN) injection PEN 0-14 Units 0-14 Units Subcutaneous ACHS insulin aspart U-100 (NOVOLOG FLEXPEN) injection PEN 6 Units 6 Units Subcutaneous TID w/ meals insulin glargine (LANTUS SOLOSTAR, BASAGLAR) injection PEN 18 Units 18 Units Subcutaneous BID levothyroxine (SYNTHROID) tablet 125 mcg 125 mcg Per NG tube QDAY() melatonin tablet 3 mg 3 mg Oral [...] 03/23/18 Prior Level of Function Lives in [place], [place] w/ her in a house w/ [...] sat independently and able to feed herself. GUEST RELATIONS AGENT COGNITIVE EVALUATION SUMMARY PRAGMATICS: BEHAVIOR: AUDITORY COMPREHENSION: [...] noted per HPI Physical Exam BP: 139/46 (05/05 0828) Temp: 36.9 C (98.5 F) (03/30 828) [...] Finalized on 03/26/2018 12:15 PM. * Clare Mccarthy, TEST CLERK-CHIEF MEDICAL DIRECTOR - 03/25/2018 4:47 PM CDT Associated Order(s): [...] no known history per the patient - [id number] Score 5, on Eliquis 5 mg bid [...] make further recommendations post DCCV and diuresis. Clare Mccarthy NP-C (pgr [phone]) Heart Rhythm Management (pgr [phone]) Medicare attestation History of Present Illness: Farheen [...] rates in the 30's prompting transfer to [facility]. She was found to have severe LV [...] Units/ sodium bicarbonate 650 mg (#) PRN (Pinked Edge Sewing Machine Operator from Rx) Allergies: Allergies Allergen Reactions Latex [...] with rates in the 100's to 120's Clare Mccarthy NP-C [phone] Associated attestation - Bobby Durán MD - [...] ICD. Her QRS is narrow and therefore BRANCH DIRECTOR-D is not indicated but possible future upgrade [...] and pericarditis Clin Microbiol Rev v.16(2); 2002 [id number] J Clin Microbiol. 2010;49(5):2072-3 Urine culture positive [...] cardiology on 03/18/18 in transfer for from [facility] in [place], [place] for cardiogenic shock which occurred after [...] sought evaluation at her local hospital in [place], [place]. There she was noted to be in atrial fibrillation with RVR and was therefore promptly transferred to [facility] in [place], [place]. According to her while at [facility] the patient deteriorated abruptly with a blood [...] and a normal coronary angiogram (done at [facility]). At the time of ID consultation on 03/23/18, the most recent echocardiogram was on 03/21/18. This was a technically difficult study but showed severely reduced LV systolic function with an estimated EF of 20% and severe, global hypokinesis. The right ventricle was moderately enlarged and also showed decreased systolic function. There was trace mitral valve regurgitation and mtxr-mh-[id number] tricuspid valve regurgitation. Neither the AV nor [...] mL IV drip (std conc) 0.5 mg/hr (03/25/18799) DOBUTamine (DOBUTREX) 1,000 mg in sodium chloride 0.9% (NS) 250 mL IV drip ( std conc) 2 mcg/kg/min (03/25/18799) PRN and Respiratory Meds:acetaminophen Q4H PRN, aluminum/magnesium hydroxide Q4H PRN, carboxymethylcellulose PRN, pancrelipase 20,000 Units/ sodium bicarbonate 650 mg(#) PRN (Pinked Edge Sewing Machine Operator from Rx) Physical Examination Vital Signs: Last Vital Signs: 24 Hour Range BP: 116/78 (03/25 1000) Temp: 36.6 C (97.8 F) (03/25 0800) Pulse: 139 (03/25 1000) Respirations: 15 PER MINUTE (03/25 1000) SpO2: 96 % (03/25 1000) O2 Delivery: Nasal Cannula (03/25 0800) SpO2 Pulse: 138 (03/25 1000) BP: (101-140)/(48-101) [...] images viewed. Impression: Mejia Rivas MD Pager [phone] Infectious Diseases Faculty Complexity of medical decision-making [...] re diarrhea and heart failure treatment o * Mejia Rivas MD - 03/23/2018 1:02 PM CDT Associated [...] and pericarditis Clin Microbiol Rev v.16(2); 2002 [id number] J Clin Microbiol. 2010;49(5):2072-3 RYAN (cardiorenal syndrome) [...] cardiology on 03/18/18 in transfer for from [facility] in [place], [place] for cardiogenic shock which occurred after [...] sought evaluation at her local hospital in [place], [place]. There she was noted to be in atrial fibrillation with RVR and was therefore promptly transferred to [facility] in [place], [place]. According to her while at [facility] the patient deteriorated abruptly with a blood [...] and a normal coronary angiogram (done at [facility]). At the time of ID consultation on 03/23/18, the most recent echocardiogram was on 03/21/18. This was a technically difficult study but showed severely reduced LV systolic function with an estimated EF of 20% and severe, global hypokinesis. The right ventricle was moderately enlarged and also showed decreased systolic function. There was trace mitral valve regurgitation and uyaj-jt-risydpjx tricuspid valve regurgitation. Neither the AV nor [...] back a cold from a trip to [place] and on about 03/13 the patient told [...] when they were both serving in the [employer]. She's been to [place], [facility] and many other places. Social History Substance [...] 20,000 Units/ sodium bicarbonate 650 mg(#) PRN (Pinked Edge Sewing Machine Operator from Rx) Physical Examination Vital Signs: Last [...] images viewed. Impression: Mejia Rivas MD Pager [phone] Infectious Diseases Faculty Complexity of medical decision-making is high because of: ? RISK o immunosuppression placing the patient at increased risk of infection or difficulty in clearing infection (diabetes) o antimicrobial complications, risk of and need for assessment/monitoring for ( disturbances of blood counts, renal or liver function; rash; diarrhea (non-C difficile related or C difficile-related); neuropathy/MIDDLE CARD TENDER effects; o central line complications, risk of [...] Mejia Rivas MD Date: 03/23/2018 * Breanna Puckett RD - 03/19/2018 1:11 PM CDT Associated Order(s): CONSULT DIETITIAN CLINICAL NUTRITION Clinical Nutrition Assessment Summary Nutrition Assessment of Patient: BMI Categories Adult: Obesity Class III: 40 and over (BMI 41.16) Malnutrition Assessment: Does not meet criteria (will further assess pending subjective info) Current Oral Intake: NPO Estimated Calorie Needs: 3036-5486 (11-14 kcals/kg wt 115.7kg) Estimated Protein Needs: [...] Frame: Within 72 Hours Breanna Puckett MA, MYRIAM, LD, CNSC *[id number] in this encounter Miscellaneous Notes * Patient Education - Bob Mcgee, PHARMD - 04/03/2018 10:09 AM CDT On [...] and other pertinent medication information. Bob Mcgee, PHARMD 04/03/2018 * Case Mgmt DC Plan - Kyleigh Rojas - 04/03/2018 8:03 AM CDT Case Management Progress Note NAME:Farheen Gutierres :[birth year] AGE: 68 y.o. ADMISSION DATE: 03/18/2018 DAYS ADMITTED: LOS: 16 days Todays Date: 04/03/2018 Plan Discharge to [facility] around 9:30am/10am via family transport. Interventions ? Support Support: Pt/Family Updates re:POC or DC Plan, Patient Education ? Info or Referral Information or Referral to Community Resources: No Needs Identified ? Discharge Planning Discharge Planning: Inpatient Rehabilitation HF team confirmed patient is medically stable to discharge this morning to [facility]. MARYANN notified bedside RN of anticipated discharge time [...] and is able to safely transport to [facility] without oxygen. MARYANN provided RN report number, . MARYANN completed transfer packet and placed it outside patient's room. HF resident completed interfacility discharge orders. MARYANN faxed signed discharge orders to [facility], Attn: February, fax: [phone]. MARYANN requested HF resident call physician report to [facility] physician, Dr. Tejinder Christianson, and provided cell # [phone]. MARYANN met with patient and at bedside to review the above. Both in agreement with discharge plan; just awaiting nursing help to disconnect from monitor, etc. Both remain comfortable with providing discharge to facility. No other needs identified. MARYANN left voicemail message for February ([phone]) to confirm discharge; noted anticipated time for patient/ leaving hospital is around 10am. Per request of HF attending, SW encouraged [facility] contact HF Clinic with any concerns/signficant changes while patient is at facility as patient will follow with HF Clinic. SW will remain available. UPDATE 10:15am: MARYANN received a return call from February at [facility]. February confirmed discharge paperwork was received via fax; requested HF resident also call report to their lab support technician, Dr. Ramesh (cell [phone]) . MARYANN paged HF resident with request. [...] Psych discharges only) ? Discharge Disposition [facility]) - Inpatient Rehab [address] [place] [address] Facility ph: [phone] Liaison: February, cell [phone] or [phone] Kyleigh Rojas [facility] Inpatient Heart Failure Building Maintenance Repairer Phone: [phone] Pager: [phone] * Patient Education - Autumn Akbar PHARMD [...] pharmacist with any further questions. Autumn Akbar PHARMD Pgr: [phone] * Case Mgmt DC Plan - Kyleigh Rojas - 04/02/2018 11:05 AM CDT Case Management Progress Note NAME:Farheen Gutierres :[birth year] AGE: 68 y.o. ADMISSION DATE: 03/18/2018 DAYS ADMITTED: LOS: 15 days Todays Date: 04/02/2018 Plan Anticipate discharge to [facility]) inpatient rehab once medically stable, likely tomorrow. Interventions ? Support Support: Pt/Family Updates re:POC or DC Plan, Patient Education ? Info or Referral Information or Referral to Community Resources: No Needs Identified ? Discharge Planning Discharge Planning: Inpatient Rehabilitation MARYANN spoke with liaison at [facility], February (cell ). February did not receive clinical updates SW faxed yesterday late afternoon. February confirmed she will review updates once received and submit to insurance for authorization. MARYANN faxed clinical updates to February, fax: . MARYANN discussed patient's plan of care/discharge plans with NCM and HF team in huddle. HF team anticipates patient will be medically stable to discharge to [facility] tomorrow pending insurance authorization. Per EMR, patient no longer requires oxygen at rest or with activity. MARYANN received call from February stating insurance approved inpatient rehab stay. Per February, [facility] IPR prefers hospital discharge/IPR admit early enough in the day to allow for time for patient to participate in 3 hours of therapy upon arrival. February in agreement with tentative discharge time of 9:30am/10am. February confirmed facility does not provide transport at time of discharge or for important follow-up outpatient appointments. SW to reinforce no 'pit stops' between [facility] and [facility] if family provides transport. *Per February, RN report and physician report will need to be called upon discharge : RN report # : [phone] Physician report # : Dr. Tejinder Christianson, MARYANN spoke with bedside RN who feels transport via family vehicle is appropriate at time of discharge. MARYANN notified Rounding RN. MARYANN also notified HF resident (Jas Yousif) of above including tentative discharge time and requested he call IPR physician at time of discharge. HF resident in agreement. MARYANN met with patient and at bedside to discuss the above. Both in agreement with discharge plan and for family to provide transportation. MARYANN explained [facility] does not provide transportation at discharge or for follow -up appointments. MARYANN offered quote for wheelchair van ($300) as [...] transfer packet and fax discharge orders (fax: [phone]) once discharge is confirmed. ? Medication Needs [...] Psych discharges only) ? Discharge Disposition [facility] - Inpatient Rehab [address] [place] [address] Facility ph: [phone] Liaison: February, cell [phone] or [phone] Kyleigh Rojas [facility] Inpatient Heart Failure Building Maintenance Repairer Phone: [phone] Pager: [phone] * Case Mgmt DC Plan - Kyleigh Rojas - 04/01/2018 3:44 PM CDT Formatting of this note may be different from the original. Case Management Progress Note NAME:Farheen Gutierres :[birth year] AGE: 68 y.o. ADMISSION DATE: 03/18/2018 DAYS ADMITTED: LOS: 14 days Todays Date: 04/01/2018 Plan Discharge planning is ongoing. Anticipate discharge to [facility] pending acceptance and insurance approval. Interventions ? Support Support: Pt/Family Updates re:POC or DC Plan, Patient Education ? Info or Referral Information or Referral to Community Resources: No Needs Identified ? Discharge Planning Discharge Planning: Inpatient Rehabilitation PT/OT continue to recommend inpatient setting upon discharge. Additionally, per Rehab Medicine: "Post-acute rehabilitation needs/disposition: Patient currently w/ goals in therapies and likely medical complexity appropriate for acute inpatient rehab at discharge." MARYANN discussed patient's plan of care and discharge plans with NCM and HF team in huddle. MARYANN reiterated patient/family's preferred placement, [facility]) Inpatient Rehab (and swing bed), are unable to accept patient on IV inotrope. HF attending voiced plan to discontinue IV dobutamine today and monitor patient to determine if she tolerates discontinuation. MARYANN faxed updated clinicals to [facility] [place], Attn: February. . MARYANN left voicemail message for [facility] IPR liaison, February (cell [phone]) , notifying of incoming fax with clinical updates, discontinuation of IV dobutamine, and anticipated discharge date (like Sunday04/03/18). SW/NCM will remain available. ? Medication Needs Medication Needs: Medication Assistance Resources in the Community (Copay card ) ? Financial Financial: No Needs Identified ? Legal Legal: No Needs Identified ? Other Other/None: No needs identified Disposition ? Expected Discharge Date Expected Discharge Date: 04/03/18 ? Transportation Does the patient need discharge transport arranged?: No Transportation Name, Phone and Availability #1: [employer] [facility] Does the patient use Medicaid Transportation?: No ? Next Level of Care (Acute Psych discharges only) ? Discharge Disposition Durable Medical Equipment No service has been selected for the patient. [facility] Destination No service has been selected for the patient. Home Care No service has been selected for the patient. Dialysis/Infusion No service has been selected for the patient. Kyleigh Rojas, [facility] Inpatient Heart Failure Building Maintenance Repairer Phone: [phone] Pager: [phone] * Care Plan - Arthur Cruz RN [...] to IPR vs [facility] GARRETT working to wean IV dobutamine at this time. Interventions ? Support Support: Pt/Family Updates re:POC or DC Plan, Patient Education ? Info or Referral ? Discharge Planning Discharge Planning: Inpatient Rehabilitation Rehab consult placed for assistance with DC planning. ? Medication Needs Medication Needs: Medication Assistance Resources in the Community (Copay card ) Covering [facility] reviewed chart and discussed POC with primary SW/team. Plans to initiate Eliquis at [place]. [facility] provided 30-day free and $10/mo copay cards [...] patient. Mary Marin RN, BSN Integrated Nurse Facility Maintenance Mechanic Ph: [phone] Pager: [phone] * Patient Education - Autumn Akbar, PHARMD [...] she knows the medications she was on VISITOR SERVICES REPRESENTATIVE, however is not familiar with all the new medications and what has changed. Reports her previous water pill was hydrochlorothiazide. Patient denies missing doses of medication, however may take her AM medication 2 -3 hours late on some days. Patient was not weighing herself VISITOR SERVICES REPRESENTATIVE or recording weights. Barriers to medication adherence: [...] patient would like discharge medications sent to: [facility] ( [place], [place]) Recommended pharmacy f/u: HF medication education, [...] pharmacist with any further questions. Autumn Akbar, PHARMD Pgr: [phone] * Case Mgmt DC Plan - Kyleigh [...] of patient/family request to discharge to [facility]) inpatient rehab. SW contacted [facility] liaison, February (cell: [phone]), to discuss patient. February will confirm with facility regarding ability to manage IV dobutamine if patient is unable to tolerate weaning off medication. MARYANN sent referral via [employer]; faxed to [phone]. MARYANN discussed patient's plan of care and discharge plans with NCM and HF team in [facility]. HF attending is hopeful patient will not need IV dobutamine at discharge. Paula later contacted SW confirming their IPR unit [...] inotrope at discharge as facilities, including [facility], are unable to accept patients on IV intropes. Patient and Niharika voiced understanding. Patient and Niharika are hopeful patient will be able to tolerate being off IV inotrope and be a candidate for IPR. Patient confirmed preference for [facility] IPR; noted she is motivated to participate in 3 hours of therapy/day. Patient and Niharika agreeable to pursuing swing bed at [facility] if not a candidate for IPR. Patient agreeable to continuing to speak with [facility] regarding IPR vs swing bed placement. MARYANN called Paula at [facility] (cell: [phone]) to relay the above. February confirmed she received patient referral. Per February, patient appears to be an appropriate candidate for IPR at this time as long as she is unable to wean off of IV inotrope. MARYANN and Paula will follow-up on Sunday. ? Medication Needs ? Financial ? Legal ? Other Disposition ? Expected Discharge Date Expected Discharge Date: 03/29/18 ? Transportation Does the patient need discharge transport arranged?: No Transportation Name, Phone and Availability #1: [email or web address] Does the patient use Medicaid Transportation?: No ? Next Level of Care (Acute Psych discharges only) ? Discharge Disposition Kyleigh Rojas [facility] Inpatient Heart Failure Building Maintenance Repairer Phone: [phone] Pager: [phone] * Procedures (Immed Post or Bedside) - [...] place. * Case Mgmt DC Plan - Mary Marin RN - 03/25/2018 3:18 PM CDT [...] Pt states she and her live in [place], [place]. 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 Pt endorses local support from friends, but not family. VISITOR SERVICES REPRESENTATIVE, pt endorses no mobility concerns outside of fatigue and SOA. Owns no DME and denies h/o placements or HH. NCM briefly talked about sometimes pts consider placement for rehabilitation following long hospitalization. Pt states she has not thought about this or talked with her about this. NCM will continue to follow and discuss with SW. Patient Address/Phone [address] [facility] [id number] (home) [phone] (work) Emergency Contact Extended Emergency Contact Information Primary Emergency Contact: Niharika Gutierres Address: [address] [place] [address] [facility] Mobile Relation: Spouse Healthcare Directive Transportation Does [...] anticipated on discharge: Yes (No assistance needed VISITOR SERVICES REPRESENTATIVE - Anticipate need for assistance at discharge) Who provides assistance or could if needed?: / Friends (no local family) Are they in good health?: Yes Can support system provide 24/7 care if needed?: Maybe ( works aircraft time clerk) ? Level of Function Prior level of function: Independent (Pt endorses no mobility concerns VISITOR SERVICES REPRESENTATIVE - ambulated w/o device. Did endorse some fatigue/SOA VISITOR SERVICES REPRESENTATIVE. Pt drives, etc.) ? Cognitive Abilities Cognitive Abilities: Alert and Oriented, Engages in problem solving and planning Financial Resources ? Coverage Primary Insurance: Commercial insurance (BCBS of - through 's employer ) Secondary Insurance: Medicare (A) Additional Coverage: RX ? 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 Financial Assistance Needed? No Psychosocial Needs ? Mental Health Mental Health History: Yes (States she takes Rx prescribed by Dr. Cummings) Mental Health Symptoms: Feeling depressed ? Substance Use History Substance Use History Screen: Yes Comment: Denies tobacco, EOTH and illicit substances ? Other No Current/Previous Services ? PCP Brad Cummings, , ? Pharmacy [facility] #[id number] [facility] [address] [address] ? Durable Medical Equipment Durable Medical Equipment [...] ? Outpatient Therapy PT: No OT: No GUEST RELATIONS AGENT: No ? Long-Term Facility/Alf SNF: No NH: No ? Inpatient Rehab IPR: No ? [facility] LTACH: No ? Acute Hospital Stay Acute Hospital Stay: Yes (Interfacility transfer) Mary Marin RN, BSN Integrated Nurse Facility Maintenance Mechanic Ph: [phone] Pager: [phone] * Care Plan - Isa Hackett RN [...] value, and read back): PTT 139.7 Time MD/CHIEF MEDICAL DIRECTOR Notified: N/A, per protocol MD/CHIEF MEDICAL DIRECTOR Name: N/A MD/CHIEF MEDICAL DIRECTOR Response/Orders Given: N/A Infusion paused for 90 minutes * Case Mgmt DC Adolph - Mary Marin RN - 03/22/2018 9:14 AM CDT Patient remains intubated in ICU on multiple gtts/pressors. Pt not appropriate for assessment. NCM will to continue to follow. Mary Marin RN, BSN Integrated Nurse Facility Maintenance Mechanic Ph: [phone] Pager: [phone] * Care Plan - Karen Nichols RN [...] risk bundle implemented * Case Mgmt DC Mary Fine RN - 03/21/2018 1:03 PM CDT NCM attempted to meet with pt for assessment. Pt remains intubated - off unit at this time. Will continue to follow. Mary Marin RN, BSN Integrated Nurse Facility Maintenance Mechanic Ph: [phone] Pager: [phone] * Critical Results - Patti Solano RN - 03/19/2018 8:16 PM CDT Critical result or procedure called (document test and value, and read back): + BC from L AC @ 0200 01/19, Gram + Cocci in both bottles (strep), 1 bottle (staph) . Time MD/CHIEF MEDICAL DIRECTOR Notified: 2017 MD/CHIEF MEDICAL DIRECTOR Name: Dr Primitivo Johnson MD/CHIEF MEDICAL DIRECTOR Response/Orders Given: Will start abx. Continue to monitor closely. * Case Mgmt DC Plan - Mary Marin RN - 03/19/2018 4:19 [...] service has been selected for the patient. Destination No service has been selected for the patient. Home Care No service has been selected for the patient. Dialysis/Infusion No service has been selected for the patient. Mary [place], RN, BSN Integrated Nurse Facility Maintenance Mechanic Ph: [phone] Pager: [phone] * Advanced Care Planning/Resuscitation Status - Shar [...] Shar Yousif Internal Medicine / PGY-2 Pager [phone] in this encounter Plan of Treatment Name [...] MG/DL Specimen Performing Laboratory MAIN LAB [address] [place] [address] * MAGNESIUM (04/03/2018 4:05 AM) Component Value Ref Range Magnesium 2.1 1.6 - 2.6 mg/dL Specimen Performing Laboratory Blood MAIN LAB [address] [place] [address] * BASIC METABOLIC PANEL (04/03/2018 4:05 AM) [...] Pharmacist for questions. Specimen Performing Laboratory Blood [facility] [address] [place], [place] [id number] * CBC (04/03/2018 4:05 AM) Component Value [...] - 11 FL Specimen Performing Laboratory Blood [facility] [address] [place] [address] * POC GLUCOSE (04/02/2018 9:21 PM) Component Value Ref Range Glucose, POC 332 (H) 70 - 100 MG/DL Specimen Performing Laboratory [facility] [address] [place] [address] * POC GLUCOSE (04/02/2018 6:17 PM) Component Value Ref Range Glucose, POC 171 (H) 70 - 100 MG/DL Specimen Performing Laboratory [facility] [address] [place] [address] * POC GLUCOSE (04/02/2018 5:09 PM) Component Value Ref Range Glucose, POC 238 (H) 70 - 100 MG/DL Specimen Performing Laboratory [facility] [address] [place] [address] * POC GLUCOSE (04/02/2018 1:23 PM) Component Value Ref Range Glucose, POC 245 (H) 70 - 100 MG/DL Specimen Performing Laboratory MAIN LAB [address] [place] [address] * MAGNESIUM (04/02/2018 1:18 PM) Component Value Ref Range Magnesium 1.9 1.6 - 2.6 mg/dL Specimen Performing Laboratory Blood MAIN LAB [address] [place] [address] * BASIC METABOLIC PANEL (04/02/2018 1:18 PM) [...] questions. Specimen Performing Laboratory Blood MAIN LAB [address] [place] [address] * CBC (04/02/2018 1:18 PM) Component Value [...] FL Specimen Performing Laboratory Blood MAIN LAB [address] [place] [address] * 2-D + DOPPLER ECHOCARDIOGRAM (04/02/2018 12:58 [...] Index 32.14 16 - 34 AV index ([place]) 0.62 E/A ratio 3.51 E/E' ratio 24.60 CV ECHO PV PRODUCE TEAM MEMBER TAMI Medrano - David LV mass 173.90 66 - 150 g RWT 0.29 <=0.42 TV rest pulmonary artery 42 mmHg pressure Right Heart Systolic TDI 0.140 m/s S' Cardiology Ultrasound Siemens [id number] Machine Left Ventricle Mass Index 83.61 44 [...] MG/DL Specimen Performing Laboratory MAIN LAB [address] [place] [address] * POC GLUCOSE (04/01/2018 9:18 PM) Component Value Ref Range Glucose, POC 117 (H) 70 - 100 MG/DL Specimen Performing Laboratory MAIN LAB [address] [place] [address] * POC GLUCOSE (04/01/2018 4:51 PM) Component Value Ref Range Glucose, POC 256 (H) 70 - 100 MG/DL Specimen Performing Laboratory MAIN LAB [address] [place] [id number] * BASIC METABOLIC PANEL (04/01/2018 3:31 PM) [...] Specimen Performing Laboratory Blood MAIN LAB [address] [place] [id number] * PV GROIN DUPLEX SCAN RT ONLY (04/01/2018 9:44 AM) Component Value Ref Range RIGHT RAILROAD COOK PROX SYS MAX 1.80 m/s RIGHT GROIN RAILROAD COOK SYS 1.80 m/s RIGHT GROIN SFA SYS [...] MG/DL Specimen Performing Laboratory MAIN LAB [address] [place] [address] * CBC (04/01/2018 7:49 AM) Component Value [...] FL Specimen Performing Laboratory Blood MAIN LAB [address] [place] [address] * MAGNESIUM (04/01/2018 3:57 AM) Component Value Ref Range Magnesium 2.2Comment: SLT HEMOLYSIS 1.6 - 2.6 mg/dL Specimen Performing Laboratory MAIN LAB [address] [place] [address] * BASIC METABOLIC PANEL (04/01/2018 3:57 AM) [...] for questions. Specimen Performing Laboratory MAIN LAB [address] [place] [address] * DIGOXIN LEVEL (04/01/2018 3:57 AM) Component Value Ref Range Digoxin 1.3 (H) 0.5 - 1.0 NG/ML Specimen Performing Laboratory Blood MAIN LAB [address] [place] [address] * POC GLUCOSE (03/31/2018 9:20 PM) Component Value Ref Range Glucose, POC 329 (H) 70 - 100 MG/DL Specimen Performing Laboratory MAIN LAB [address] [place] [address] * POC GLUCOSE (03/31/2018 6:39 PM) Component Value Ref Range Glucose, POC 250 (H) 70 - 100 MG/DL Specimen Performing Laboratory MAIN LAB [address] [place] [address] * MAGNESIUM (03/31/2018 5:50 PM) Component Value Ref Range Magnesium 2.1 1.6 - 2.6 mg/dL Specimen Performing Laboratory Blood MAIN LAB [address] [place] [address] * BASIC METABOLIC PANEL (03/31/2018 5:50 PM) [...] questions. Specimen Performing Laboratory Blood MAIN LAB [address] [place] [address] * POC GLUCOSE (03/31/2018 3:09 PM) Component Value Ref Range Glucose, POC 170 (H) 70 - 100 MG/DL Specimen Performing Laboratory MAIN LAB [address] [place] [address] * POC GLUCOSE (03/31/2018 8:59 AM) Component Value Ref Range Glucose, POC 162 (H) 70 - 100 MG/DL Specimen Performing Laboratory MAIN LAB [address] [place] [address] * CBC (03/31/2018 4:18 AM) Component Value [...] 7 - 11 FL Specimen Performing Laboratory MAIN LAB [address] [place] [address] * MAGNESIUM (03/31/2018 4:18 AM) Component Value Ref Range Magnesium 1.9 1.6 - 2.6 mg/dL Specimen Performing Laboratory Blood [facility] [address] [place] [address] * BASIC METABOLIC PANEL (03/31/2018 4:18 AM) [...] Pharmacist for questions. Specimen Performing Laboratory Blood [facility] [address] [place] [address] * POC GLUCOSE (03/30/2018 9:42 PM) Component Value Ref Range Glucose, POC 343 (H) 70 - 100 MG/DL Specimen Performing Laboratory MAIN LAB [address] [place] [address] * POC GLUCOSE (03/30/2018 7:22 PM) Component Value Ref Range Glucose, POC 177 (H) 70 - 100 MG/DL Specimen Performing Laboratory [facility] MAIN [facility] [address] [place] [address] * POC GLUCOSE (03/30/2018 2:10 PM) Component Value Ref Range Glucose, POC 177 (H) 70 - 100 MG/DL Specimen Performing Laboratory MAIN LAB [address] [place] [address] * POC GLUCOSE (03/30/2018 7:52 AM) Component Value Ref Range Glucose, POC 135 (H) 70 - 100 MG/DL Specimen Performing Laboratory MAIN LAB [address] [place] [address] * MAGNESIUM (03/30/2018 3:50 AM) Component Value Ref Range Magnesium 2.0 1.6 - 2.6 mg/dL Specimen Performing Laboratory Blood [facility] [address] [place] [address] * BASIC METABOLIC PANEL (03/30/2018 3:50 AM) [...] Pharmacist for questions. Specimen Performing Laboratory Blood [facility] [address] [place] [address] * CBC (03/30/2018 3:49 AM) Component Value [...] FL Specimen Performing Laboratory Blood MAIN LAB [address] [place] [address] * POC GLUCOSE (03/29/2018 9:03 PM) Component Value Ref Range Glucose, POC 257 (H) 70 - 100 MG/DL Specimen Performing Laboratory MAIN LAB [address] [place] [address] * POC GLUCOSE (03/29/2018 6:17 PM) Component Value Ref Range Glucose, POC 154 (H) 70 - 100 MG/DL Specimen Performing Laboratory MAIN LAB [address] [place] [address] * MAGNESIUM (03/29/2018 5:20 PM) Component Value Ref Range Magnesium 2.1 1.6 - 2.6 mg/dL Specimen Performing Laboratory Blood [facility] [address] [place] [address] * BASIC METABOLIC PANEL (03/29/2018 5:20 PM) [...] questions. Specimen Performing Laboratory Blood MAIN LAB [address] [place], [place] [id number] * POC GLUCOSE (03/29/2018 11:23 AM) Component Value Ref Range Glucose, POC 177 (H) 70 - 100 MG/DL Specimen Performing Laboratory [facility] [address] [place] [address], [place] [address] * POC GLUCOSE (03/29/2018 7:22 AM) Component Value Ref Range Glucose, POC 149 (H) 70 - 100 MG/DL Specimen Performing Laboratory MAIN LAB [address] [place] [address] * MAGNESIUM (03/29/2018 4:31 AM) Component Value Ref Range Magnesium 2.1 1.6 - 2.6 mg/dL Specimen Performing Laboratory Blood MAIN LAB [address] [place] [address] * BASIC METABOLIC PANEL (03/29/2018 4:31 AM) [...] Specimen Performing Laboratory Blood MAIN LAB [address] [place] [address] * CBC (03/29/2018 4:30 AM) Component Value [...] FL Specimen Performing Laboratory Blood MAIN LAB [address] [place] [address] * POC GLUCOSE (03/29/2018 3:13 AM) Component Value Ref Range Glucose, POC 94 70 - 100 MG/DL Specimen Performing Laboratory MAIN LAB [address] [place], [place] [id number] * POC GLUCOSE (03/28/2018 10:17 PM) Component Value Ref Range Glucose, POC 79 70 - 100 MG/DL Specimen Performing Laboratory MAIN LAB [address] [place] [address] * POC GLUCOSE (03/28/2018 6:08 PM) Component Value Ref Range Glucose, POC 123 (H) 70 - 100 MG/DL Specimen Performing Laboratory MAIN LAB [address] [place], [place] [id number] * MAGNESIUM (03/28/2018 5:25 PM) Component Value Ref Range Magnesium 2.0 1.6 - 2.6 mg/dL Specimen Performing Laboratory Blood MAIN LAB [address] [place] [address] * BASIC METABOLIC PANEL (03/28/2018 5:25 PM) [...] questions. Specimen Performing Laboratory Blood MAIN LAB [address] [place] [address] * DEVICE EVALUATION - ICD (03/28/2018 4:10 PM) Component Value Ref Range Generator Firebrick And Refractory Tile Repairer [employer] Device Type DDD-ICD Wireless Generator Yes Generator MRI Conditional Yes Atrial Lead Firebrick And Refractory Tile [employer]r [employer] Atrial Lead Model # TENDRIL MRI [id number] 52cm Atrial Lead Serial # [id number] Atrial Lead Implant Date 03/27/2018 Atrial Lead Fixation active fixation Atrial Lead Polarity Bipolar Atrial Lead Pin Connector IS1 Atrial Lead MRI Yes Conditional RV Lead Firebrick And Refractory Tile Rep[employer]r [employer] RV Lead Model # OPTISURE [id number] RV Lead Serial # [id number] RV Lead Implant Date 03/27/2018 RV Lead Fixation active fixation RV Lead Coil Single RV Lead JESUSITA Conditional Yes Generator Model # NADINE GALLEGOS [id number] Generator Serial # [id number] Generator Implnat Date 03/27/2018 Remote Monitor Serial# [id number] Accssory Serial Number [id number] Device [place] On Demand Transmitter Compatible Device Mode DDD [...] 4-12weeks post implant Due Device Implanted By [facility] Pacemaker Dependant No Programming? Yes Date of [...] [facility] Device rep: - pre-discharge check audrey remote inserviced. Please see attached HRM data sheet for > detail as needed.No changes made by rep. Routed to Dr Fry for co-sign. * POC GLUCOSE (03/28/2018 1:46 PM) Component Value Ref Range Glucose, POC 104 (H) 70 - 100 MG/DL Specimen Performing Laboratory MAIN LAB [address] [place] [address] * POC GLUCOSE (03/28/2018 7:35 AM) Component Value Ref Range Glucose, POC 83 70 - 100 MG/DL Specimen Performing Laboratory [facility] MAIN [facility] [address] [place] [address] * CHEST 2 VIEWS (03/28/2018 5:29 AM) [...] Performing Laboratory Blood [facility] MAIN [facility] [address] [facility] [place] [address] * BASIC METABOLIC PANEL (03/28/2018 4:04 AM) [...] questions. Specimen Performing Laboratory Blood MAIN LAB [address] [place] [address] * CBC (03/28/2018 4:04 AM) Component Value [...] FL Specimen Performing Laboratory Blood MAIN LAB [address] [place] [address] * POC GLUCOSE (03/28/2018 3:59 AM) Component Value Ref Range Glucose, POC 75 70 - 100 MG/DL Specimen Performing Laboratory MAIN LAB [address] [place] [address] * POC GLUCOSE (03/27/2018 8:34 PM) Component Value Ref Range Glucose, POC 262 (H) 70 - 100 MG/DL Specimen Performing Laboratory MAIN LAB [address] [place] [id number] * MAGNESIUM (03/27/2018 6:15 PM) Component Value Ref Range Magnesium 2.0Comment: SLT HEMOLYSIS 1.6 - 2.6 mg/dL Specimen Performing Laboratory Blood MAIN LAB [address] [place] [address] * BASIC METABOLIC PANEL (03/27/2018 6:15 PM) [...] Specimen Performing Laboratory Blood MAIN LAB [address] [place] [address] * POC GLUCOSE (03/27/2018 4:50 PM) Component Value Ref Range Glucose, POC 276 (H) 70 - 100 MG/DL Specimen Performing Laboratory MAIN LAB [address] [place], [place] [id number] * POC GLUCOSE (03/27/2018 2:07 PM) Component Value Ref Range Glucose, POC 126 (H) 70 - 100 MG/DL Specimen Performing Laboratory MAIN LAB [address] [place], [place] [id number] * EP DEVICE (03/27/2018 1:15 PM) Component Value Ref Range Generator Firebrick And Refractory Tile [employer] [place] Device Type DDD-ICD Wireless Generator Yes Generator Location Left Generator MRI Conditional Yes Atrial Lead Firebrick And Refractory Tile Rep[employer]r [employer] [place] Atrial Lead Model # TENDRIL MRI [id number] 52cm Atrial Lead Serial # [id number] Atrial Lead Implant Date 03/27/2018 Atrial Lead Fixation active fixation Atrial Lead Polarity Bipolar Atrial Lead Pin Connector IS1 Atrial Lead MRI Yes Conditional RV Lead Firebrick And Refractory Tile Rep[employer]r [facility] [place] RV Lead Model # OPTISURE [id number] RV Lead Serial # [id number] RV Lead Implant Date 03/27/2018 RV Lead Fixation active fixation RV Lead Pin Connector PPM DF4 RV Lead Coil Single RV Lead JESUSITA Conditional Yes Generator Model # NADINE GALLEGOS [id number] Generator Serial # [id number] Generator Implnat Date 03/27/2018 Remote Monitor Serial# [id number] Accssory Serial Number [id number] Device [place] On Demand Transmitter Compatible Device Mode DDD [...] the skin was infiltrated with local anesthetic. [id number] ACCESS Ultrasound was utilized to confirm axillary [...] was monitored throughout the procedure by the syrup machine laborer staff and myself. The sedation duration [...] 100 MG/DL Specimen Performing Laboratory MAIN LAB [address] [place] [address] * PROTIME INR (PT) (03/27/2018 5:15 AM) Component Value Ref Range INR 1.3 (H) 0.8 - 1.2 Specimen Performing Laboratory Blood MAIN LAB [address] [place] [address] 9[address] * MAGNESIUM (03/27/2018 5:15 AM) Component Value Ref Range Magnesium 2.0 1.6 - 2.6 mg/dL Specimen Performing Laboratory Blood MAIN LAB [address] [place] [address] * COMPREHENSIVE METABOLIC PANEL (03/27/2018 5:15 AM) [...] Specimen Performing Laboratory Blood MAIN LAB [address] [place] [address] * CBC (03/27/2018 5:15 AM) Component Value [...] Specimen Performing Laboratory Blood MAIN LAB [address] [place] [address] * POC GLUCOSE (03/27/2018 4:41 AM) Component Value Ref Range Glucose, POC 109 (H) 70 - 100 MG/DL Specimen Performing Laboratory MAIN LAB [address] [place] [address] * POC GLUCOSE (03/26/2018 9:06 PM) Component Value Ref Range Glucose, POC 235 (H) 70 - 100 MG/DL Specimen Performing Laboratory MAIN LAB [address] [place] [address] * POC GLUCOSE (03/26/2018 7:10 PM) Component Value Ref Range Glucose, POC 167 (H) 70 - 100 MG/DL Specimen Performing Laboratory MAIN LAB [address] [place] [address] * MAGNESIUM (03/26/2018 5:00 PM) Component Value Ref Range Magnesium 2.1 1.6 - 2.6 mg/dL Specimen Performing Laboratory Blood MAIN LAB [address] [place] [address] * COMPREHENSIVE METABOLIC PANEL (03/26/2018 5:00 PM) [...] questions. Specimen Performing Laboratory Blood MAIN LAB [address] [place] [address], [place] [address] * POC GLUCOSE (03/26/2018 4:00 PM) Component Value Ref Range Glucose, POC 98 70 - 100 MG/DL Specimen Performing Laboratory MAIN LAB [address] [place] [address] * TRANSESOPHAGEAL ECHOCARDIOGRAM (03/26/2018 2:58 PM) Component Value Ref Range BSA 2.14 m2 CV ECHO PV PRODUCE TEAM MEMBER TREVOR Marinellitextile machine maintenance mechanic Ultrasound Siemens [id number] Machine ECHO EF 10 % Specimen Performing [...] MG/DL Specimen Performing Laboratory MAIN LAB [address] [place] [address] * NM PET HEART METABOLISM SARCOID (03/26/2018 [...] Specimen Performing Laboratory Blood MAIN LAB [address] [place] [address] * MAGNESIUM (03/26/2018 4:30 AM) Component Value Ref Range Magnesium 2.1 1.6 - 2.6 mg/dL Specimen Performing Laboratory Blood MAIN LAB [address] [place] [address] * COMPREHENSIVE METABOLIC PANEL (03/26/2018 4:30 AM) [...] questions. Specimen Performing Laboratory Blood MAIN LAB [address] [place] [address] * POC GLUCOSE (03/26/2018 4:00 AM) Component Value Ref Range Glucose, POC 146 (H) 70 - 100 MG/DL Specimen Performing Laboratory MAIN LAB [address] [place] [address] * POC GLUCOSE (03/25/2018 8:44 PM) Component Value Ref Range Glucose, POC 148 (H) 70 - 100 MG/DL Specimen Performing Laboratory MAIN LAB [address] [place], [place] [id number] * POC GLUCOSE (03/25/2018 5:54 PM) Component Value Ref Range Glucose, POC 135 (H) 70 - 100 MG/DL Specimen Performing Laboratory MAIN LAB [address] [place], [place] [id number] * MAGNESIUM (03/25/2018 4:40 PM) Component Value Ref Range Magnesium 2.2 1.6 - 2.6 mg/dL Specimen Performing Laboratory Blood [facility] [address] [place], [place] [id number] * COMPREHENSIVE METABOLIC PANEL (03/25/2018 4:40 PM) [...] Blood [facility] MAIN LAB [address] [place] [address] * CT CHEST WO CONTRAST (03/25/2018 3:46 PM) Specimen Performing Laboratory [facility] RAD RESULTS Impressions 1. Left IJ line malpositioning as described. Repositioning is suggested. This was discussed with the charge nurse on the patient's floor, Mable by telephone at 4:11 PM on [...] 70 - 100 MG/DL Specimen Performing Laboratory [facility] [address] [place] [address] * POC GLUCOSE (03/25/2018 10:06 AM) Component Value Ref Range Glucose, POC 192 (H) 70 - 100 MG/DL Specimen Performing Laboratory [address] [address] * POC GLUCOSE (03/25/2018 9:15 AM) Component Value Ref Range Glucose, POC 190 (H) 70 - 100 MG/DL Specimen Performing Laboratory [address] [address] * POC GLUCOSE (03/25/2018 8:38 AM) Component Value Ref Range Glucose, POC 109 (H) 70 - 100 MG/DL Specimen Performing Laboratory [address] [address] * POC GLUCOSE (03/25/2018 8:04 AM) Component Value Ref Range Glucose, POC 100 70 - 100 MG/DL Specimen Performing Laboratory [address] [address] * POC GLUCOSE (03/25/2018 6:06 AM) Component Value Ref Range Glucose, POC 132 (H) 70 - 100 MG/DL Specimen Performing Laboratory [address] [address] * POC GLUCOSE (03/25/2018 5:04 AM) Component Value Ref Range Glucose, POC 138 (H) 70 - 100 MG/DL Specimen Performing Laboratory [address] [address] * POC GLUCOSE (03/25/2018 3:55 AM) Component Value Ref Range Glucose, POC 133 (H) 70 - 100 MG/DL Specimen Performing Laboratory [address] [address] * POC GLUCOSE (03/25/2018 3:09 AM) Component Value Ref Range Glucose, POC 166 (H) 70 - 100 MG/DL Specimen Performing Laboratory [address] [address] * POC GLUCOSE (03/25/2018 3:06 AM) Component Value Ref Range Glucose, POC 217 (H) 70 - 100 MG/DL Specimen Performing Laboratory MAIN LAB [address] [place] [address] * CBC (03/25/2018 2:55 AM) Component Value [...] Specimen Performing Laboratory Blood MAIN LAB [address] [place] [id number] * MAGNESIUM (03/25/2018 2:55 AM) Component Value Ref Range Magnesium 2.3 1.6 - 2.6 mg/dL Specimen Performing Laboratory Blood MAIN LAB [address] [place] [id number] * COMPREHENSIVE METABOLIC PANEL (03/25/2018 2:55 AM) [...] Pharmacist for questions. Specimen Performing Laboratory Blood [facility] [address] [place] [address] * POC GLUCOSE (03/25/2018 2:50 AM) Component Value Ref Range Glucose, POC 71 70 - 100 MG/DL Specimen Performing Laboratory [facility] [address] [place] [address] * POC GLUCOSE (03/25/2018 12:49 AM) Component Value Ref Range Glucose, POC 129 (H) 70 - 100 MG/DL Specimen Performing Laboratory [facility] [address] [place] [address] * POC GLUCOSE (03/25/2018 12:15 AM) Component Value Ref Range Glucose, POC 136 (H) 70 - 100 MG/DL Specimen Performing Laboratory [facility] [address] [place] [address] * POC GLUCOSE (03/24/2018 11:01 PM) Component Value Ref Range Glucose, POC 144 (H) 70 - 100 MG/DL Specimen Performing Laboratory [facility] [address] [place] [address] * POC GLUCOSE (03/24/2018 10:03 PM) Component Value Ref Range Glucose, POC 164 (H) 70 - 100 MG/DL Specimen Performing Laboratory [facility] [address] [place], [place] [id number] * BASIC METABOLIC PANEL (03/24/2018 9:11 PM) [...] Pharmacist for questions. Specimen Performing Laboratory Blood [facility] [address] [place] [address] 60800 * POC GLUCOSE (03/24/2018 9:10 PM) Component Value Ref Range Glucose, POC 214 (H) 70 - 100 MG/DL Specimen Performing Laboratory [facility] [address] [place] [address] 78206 * POC GLUCOSE (03/24/2018 7:59 PM) Component Value Ref Range Glucose, POC 253 (H) 70 - 100 MG/DL Specimen Performing Laboratory [facility] [address] [place] [address] 04983 * POC GLUCOSE (03/24/2018 6:56 PM) Component Value Ref Range Glucose, POC 151 (H) 70 - 100 MG/DL Specimen Performing Laboratory [facility] [address] [place] [address] 18516 * POC GLUCOSE (03/24/2018 6:06 PM) Component Value Ref Range Glucose, POC 164 (H) 70 - 100 MG/DL Specimen Performing Laboratory [facility] [address] [place] [address] 37361 * POC GLUCOSE (03/24/2018 5:10 PM) Component Value Ref Range Glucose, POC 184 (H) 70 - 100 MG/DL Specimen Performing Laboratory [facility] [address] [place] [address] 16889 * POC GLUCOSE (03/24/2018 3:48 PM) Component Value Ref Range Glucose, POC 192 (H) 70 - 100 MG/DL Specimen Performing Laboratory [facility] [address] [place] [address] 69111 * MAGNESIUM (03/24/2018 3:45 PM) Component Value Ref Range Magnesium 2.1 1.6 - 2.6 mg/dL Specimen Performing Laboratory Blood [facility] [address] [place] [address] 57821 * COMPREHENSIVE METABOLIC PANEL (03/24/2018 3:45 PM) [...] Pharmacist for questions. Specimen Performing Laboratory Blood [facility] [address] [place] [address] 96913 * POC GLUCOSE (03/24/2018 2:06 PM) Component Value Ref Range Glucose, POC 143 (H) 70 - 100 MG/DL Specimen Performing Laboratory [facility] [address] [place] [address] 88429 * POC GLUCOSE (03/24/2018 12:11 PM) Component Value Ref Range Glucose, POC 159 (H) 70 - 100 MG/DL Specimen Performing Laboratory [facility] [address] [place] [address] 97595 * POC GLUCOSE (03/24/2018 10:56 AM) Component Value Ref Range Glucose, POC 145 (H) 70 - 100 MG/DL Specimen Performing Laboratory [facility] [address] [place] [address] 44836 * POC GLUCOSE (03/24/2018 9:56 AM) Component Value Ref Range Glucose, POC 158 (H) 70 - 100 MG/DL Specimen Performing Laboratory [facility] [address] [place] [address] 85715 * POC GLUCOSE (03/24/2018 9:17 AM) Component Value Ref Range Glucose, POC 167 (H) 70 - 100 MG/DL Specimen Performing Laboratory [facility] [address] [place] [address] 87234 * POC GLUCOSE (03/24/2018 8:00 AM) Component Value Ref Range Glucose, POC 157 (H) 70 - 100 MG/DL Specimen Performing Laboratory [facility] [address] [place] [address] 21131 * POC GLUCOSE (03/24/2018 6:47 AM) Component Value Ref Range Glucose, POC 160 (H) 70 - 100 MG/DL Specimen Performing Laboratory [facility] [address] [place] [address] 49561 * POC GLUCOSE (03/24/2018 5:48 AM) Component Value Ref Range Glucose, POC 151 (H) 70 - 100 MG/DL Specimen Performing Laboratory [facility] [address] [place] [address] 28181 * POC GLUCOSE (03/24/2018 4:59 AM) Component Value Ref Range Glucose, POC 148 (H) 70 - 100 MG/DL Specimen Performing Laboratory [facility] [address] [place] [address] 67829 * POC GLUCOSE (03/24/2018 4:00 AM) Component Value Ref Range Glucose, POC 163 (H) 70 - 100 MG/DL Specimen Performing Laboratory [facility] [address] [place] [address] 11383 * CBC (03/24/2018 4:00 AM) Component Value [...] - 11 FL Specimen Performing Laboratory Blood [facility] [address] [place] [address] 89304 * MAGNESIUM (03/24/2018 4:00 AM) Component Value Ref Range Magnesium 1.8 1.6 - 2.6 mg/dL Specimen Performing Laboratory Blood [facility] [address] [place] [address] 22704 * COMPREHENSIVE METABOLIC PANEL (03/24/2018 4:00 AM) [...] Pharmacist for questions. Specimen Performing Laboratory Blood [facility] [address] [place] [address] 55819 * POC GLUCOSE (03/24/2018 1:41 AM) Component Value Ref Range Glucose, POC 135 (H) 70 - 100 MG/DL Specimen Performing Laboratory [facility] [address] [place] [address] 89001 * POC GLUCOSE (03/23/2018 11:42 PM) Component Value Ref Range Glucose, POC 154 (H) 70 - 100 MG/DL Specimen Performing Laboratory MAIN LAB [address] [place] [address] 72607 * POC GLUCOSE (03/23/2018 10:00 PM) Component Value Ref Range Glucose, POC 149 (H) 70 - 100 MG/DL Specimen Performing Laboratory MAIN LAB [address] [place] [address] 69996 * POC GLUCOSE (03/23/2018 7:58 PM) Component Value Ref Range Glucose, POC 132 (H) 70 - 100 MG/DL Specimen Performing Laboratory MAIN LAB [address] [place] [address] 22774 * POC GLUCOSE (03/23/2018 5:57 PM) Component Value Ref Range Glucose, POC 141 (H) 70 - 100 MG/DL Specimen Performing Laboratory MAIN LAB [address] [place] [address] * POC GLUCOSE (03/23/2018 5:02 PM) Component Value Ref Range Glucose, POC 155 (H) 70 - 100 MG/DL Specimen Performing Laboratory MAIN LAB [address] [place] [address] * MAGNESIUM (03/23/2018 4:12 PM) Component Value Ref Range Magnesium 2.0 1.6 - 2.6 mg/dL Specimen Performing Laboratory Blood MAIN LAB [address] [place] [address] * COMPREHENSIVE METABOLIC PANEL (03/23/2018 4:12 PM) [...] Specimen Performing Laboratory Blood MAIN LAB [address] [place] [address] * POC GLUCOSE (03/23/2018 4:09 PM) Component Value Ref Range Glucose, POC 155 (H) 70 - 100 MG/DL Specimen Performing Laboratory [facility] [address] [place] [address] 23213 * POC GLUCOSE (03/23/2018 3:12 PM) Component Value Ref Range Glucose, POC 148 (H) 70 - 100 MG/DL Specimen Performing Laboratory [facility] [address] [place] [address] 01164 * POC GLUCOSE (03/23/2018 2:03 PM) Component Value Ref Range Glucose, POC 176 (H) 70 - 100 MG/DL Specimen Performing Laboratory [facility] [address] [place] [address] 40490 * POC GLUCOSE (03/23/2018 12:16 PM) Component Value Ref Range Glucose, POC 146 (H) 70 - 100 MG/DL Specimen Performing Laboratory [facility] [address] [place] [address] 41711 * HEPARIN INDUCED PLT AB (HIT) (03/23/2018 11:20 AM) Component Value Ref Range Heparin Induced Plt AB NEGATIVEComment: TEST PERFORMED [facility] Heparin AB OD 0.030 0.000 - 0.499 Specimen Performing Laboratory Blood [facility] [address] [place] [address] 03236 * POC GLUCOSE (03/23/2018 10:52 AM) Component Value Ref Range Glucose, POC 199 (H) 70 - 100 MG/DL Specimen Performing Laboratory [facility] [address] [place] [address] 59518 * POC GLUCOSE (03/23/2018 10:01 AM) Component Value Ref Range Glucose, POC 203 (H) 70 - 100 MG/DL Specimen Performing Laboratory [facility] [address] [place] [address] 53676 * POC GLUCOSE (03/23/2018 8:19 AM) Component Value Ref Range Glucose, POC 165 (H) 70 - 100 MG/DL Specimen Performing Laboratory [facility] [address] [place] [address] 03944 * POC GLUCOSE (03/23/2018 6:57 AM) Component Value Ref Range Glucose, POC 179 (H) 70 - 100 MG/DL Specimen Performing Laboratory [facility] [address] [place] [address] 52649 * POC GLUCOSE (03/23/2018 6:00 AM) Component Value Ref Range Glucose, POC 187 (H) 70 - 100 MG/DL Specimen Performing Laboratory [facility] [address] [place] [address] * PTT (APTT) (03/23/2018 5:05 AM) Component Value Ref Range APTT 101.5 (H) 21.0 - 39.0 SEC Specimen Performing Laboratory Blood [facility] [address] [place] [address] * POC GLUCOSE (03/23/2018 5:04 AM) Component Value Ref Range Glucose, POC 196 (H) 70 - 100 MG/DL Specimen Performing Laboratory [facility] [address] [place] [address] * CHEST SINGLE VIEW (03/23/2018 4:57 AM) [...] cuff tear. Left shoulder arthroplasty. Finalized by aMc Tolentino M.D. on 03/23/2018 7:59 AM. Dictated [...] Specimen Performing Laboratory Blood MAIN LAB [address] [place] [address] * COMPREHENSIVE METABOLIC PANEL (03/23/2018 4:02 AM) [...] Specimen Performing Laboratory Blood MAIN LAB [address] [place] [address] * CBC (03/23/2018 4:02 AM) Component Value [...] - 11 FL Specimen Performing Laboratory Blood [facility] [address] [place] [address] 01610 * POC GLUCOSE (03/23/2018 4:01 AM) Component Value Ref Range Glucose, POC 222 (H) 70 - 100 MG/DL Specimen Performing Laboratory [address] [address] * POC GLUCOSE (03/23/2018 3:01 AM) Component Value Ref Range Glucose, POC 196 (H) 70 - 100 MG/DL Specimen Performing Laboratory [facility] [address] [place] [address] 00103 * POC GLUCOSE (03/23/2018 2:03 AM) Component Value Ref Range Glucose, POC 187 (H) 70 - 100 MG/DL Specimen Performing Laboratory [address] [address] * POC GLUCOSE (03/23/2018 1:01 AM) Component Value Ref Range Glucose, POC 154 (H) 70 - 100 MG/DL Specimen Performing Laboratory [address] [address] * POC GLUCOSE (03/23/2018 12:10 AM) Component Value Ref Range Glucose, POC 175 (H) 70 - 100 MG/DL Specimen Performing Laboratory [address] [address] * POC GLUCOSE (03/22/2018 11:06 PM) Component Value Ref Range Glucose, POC 178 (H) 70 - 100 MG/DL Specimen Performing Laboratory [address] [address] * PTT (APTT) (03/22/2018 11:05 PM) Component Value Ref Range APTT 78.4 (H) 21.0 - 39.0 SEC Specimen Performing Laboratory Blood [facility] [address] [place] [address] 26210 * POC GLUCOSE (03/22/2018 9:20 PM) Component Value Ref Range Glucose, POC 154 (H) 70 - 100 MG/DL Specimen Performing Laboratory [facility] [address] [place] [address] 34845 * VANCOMYCIN TROUGH (03/22/2018 9:20 PM) Component Value Ref Range Vancomycin Trough 20.1 (H) 10.0 - 20.0 MCG/ML Specimen Performing Laboratory Blood, venous - Blood [facility] [address] [place] [address] 70221 * POC GLUCOSE (03/22/2018 6:46 PM) Component Value Ref Range Glucose, POC 122 (H) 70 - 100 MG/DL Specimen Performing Laboratory MAIN LAB [address] [place] [address] 32948 * POC GLUCOSE (03/22/2018 5:06 PM) Component Value Ref Range Glucose, POC 132 (H) 70 - 100 MG/DL Specimen Performing Laboratory [facility] [address] [place] [address] 40941 * POC GLUCOSE (03/22/2018 4:13 PM) Component Value Ref Range Glucose, POC 144 (H) 70 - 100 MG/DL Specimen Performing Laboratory [facility] [address] [place], [place] [address] * PTT (APTT) (03/22/2018 4:10 PM) Component Value Ref Range APTT 31.9 21.0 - 39.0 SEC Specimen Performing Laboratory Blood [facility] [address] [place] [address] 65822 * MAGNESIUM (03/22/2018 4:10 PM) Component Value Ref Range Magnesium 2.2 1.6 - 2.6 mg/dL Specimen Performing Laboratory Blood [facility] [address] [place] [address] 76915 * COMPREHENSIVE METABOLIC PANEL (03/22/2018 4:10 PM) [...] Pharmacist for questions. Specimen Performing Laboratory Blood [facility] [address] [place] [address] 66813 * POC GLUCOSE (03/22/2018 3:03 PM) Component Value Ref Range Glucose, POC 124 (H) 70 - 100 MG/DL Specimen Performing Laboratory [facility] [address] [place] [address] 21158 * POC GLUCOSE (03/22/2018 2:06 PM) Component Value Ref Range Glucose, POC 103 (H) 70 - 100 MG/DL Specimen Performing Laboratory [facility] [address] [place] [address] 30141 * POC ACTIVATED CLOTTING TIME (03/22/2018 1:59 PM) Component Value Ref Range Activated Clotting Time 213 s Specimen Performing Laboratory [facility] [address] [place] [address] 17530 * POC GLUCOSE (03/22/2018 1:06 PM) Component Value Ref Range Glucose, POC 115 (H) 70 - 100 MG/DL Specimen Performing Laboratory [facility] [address] [place] [address] 50040 * POC GLUCOSE (03/22/2018 12:01 PM) Component Value Ref Range Glucose, POC 107 (H) 70 - 100 MG/DL Specimen Performing Laboratory [facility] [address] [place] [address] 99021 * POC GLUCOSE (03/22/2018 10:58 AM) Component Value Ref Range Glucose, POC 106 (H) 70 - 100 MG/DL Specimen Performing Laboratory [facility] [address] [place] [address] 32253 * MAGNESIUM (03/22/2018 10:54 AM) Component Value Ref Range Magnesium 2.6 1.6 - 2.6 mg/dL Specimen Performing Laboratory Blood [facility] [address] [place] [address] 53027 * BASIC METABOLIC PANEL (03/22/2018 10:54 AM) [...] questions. Specimen Performing Laboratory Blood MAIN LAB [address] [place] [address] 47929 * PTT (APTT) (03/22/2018 10:54 AM) Component Value Ref Range APTT 139.7 (HH) 21.0 - 39.0 SEC Comment: Critical Result APTT:Called to VON Douglass at: 11:59:41 by: BLAYNE Read back by: VON Douglass Specimen Performing Laboratory Blood MAIN LAB [address] [place] [address] 67873 * BLOOD GASES, ARTERIAL (03/22/2018 9:40 AM) Component Value Ref Range pH-Arterial 7.34 (L) 7.35 - 7.45 pCO2-Arterial 53 (H) 35 - 45 MMHG pO2-Arterial 104 (H) 80 - 100 MMHG Base Excess-Arterial 1.8 MMOL/L O2 Sat-Arterial 97.5 95 - 99 % Clbgmftkwlq-XQM-Uod 26.0 21 - 28 MMOL/L Specimen Performing Laboratory Blood, arterial - Blood MAIN LAB [address] [place] [address] 95496 * POC GLUCOSE (03/22/2018 9:06 AM) Component Value Ref Range Glucose, POC 122 (H) 70 - 100 MG/DL Specimen Performing Laboratory MAIN LAB [address] [place] [address] 47034 * POC GLUCOSE (03/22/2018 7:49 AM) Component Value Ref Range Glucose, POC 125 (H) 70 - 100 MG/DL Specimen Performing Laboratory MAIN LAB [address] [place] [address] 10969 * POC GLUCOSE (03/22/2018 6:54 AM) Component Value Ref Range Glucose, POC 122 (H) 70 - 100 MG/DL Specimen Performing Laboratory MAIN LAB [address] [place] [address] 97615 * POC GLUCOSE (03/22/2018 6:00 AM) Component Value Ref Range Glucose, POC 149 (H) 70 - 100 MG/DL Specimen Performing Laboratory MAIN LAB [address] [place] [address] 25563 * BLOOD GASES, ARTERIAL (03/22/2018 5:00 AM) Component Value Ref Range pH-Arterial 7.39 7.35 - 7.45 pCO2-Arterial 47 (H) 35 - 45 MMHG pO2-Arterial 89 80 - 100 MMHG Base Excess-Arterial 2.4 MMOL/L O2 Sat-Arterial 97.0 95 - 99 % Ltsfifoelgq-YDO-Tny 26.5 21 - 28 MMOL/L Specimen Performing Laboratory Blood, arterial - Blood [facility] [address] [place] [address] 84524 * O2 SATURATION, MIXED VENOUS (03/22/2018 5:00 AM) Component Value Ref Range N8Dhs-Igbww Venous 79.2 % Specimen Performing Laboratory Blood [facility] [address] [place] [address] 42317 * MAGNESIUM (03/22/2018 5:00 AM) Component Value Ref Range Magnesium 1.9 1.6 - 2.6 mg/dL Specimen Performing Laboratory Blood [facility] [address] [place] [address] 18738 * COMPREHENSIVE METABOLIC PANEL (03/22/2018 5:00 AM) [...] questions. Specimen Performing Laboratory Blood MAIN LAB [address] [place] [address] * CBC (03/22/2018 5:00 AM) Component Value [...] FL Specimen Performing Laboratory Blood MAIN LAB [address] [place] [address] * POC GLUCOSE (03/22/2018 4:57 AM) Component Value Ref Range Glucose, POC 148 (H) 70 - 100 MG/DL Specimen Performing Laboratory MAIN LAB [address] [place] [address] 76952 * POC GLUCOSE (03/22/2018 4:12 AM) Component Value Ref Range Glucose, POC 147 (H) 70 - 100 MG/DL Specimen Performing Laboratory MAIN LAB [address] [place], [place] [address] * CHEST SINGLE VIEW (03/22/2018 3:57 AM) [...] 39.0 SEC Specimen Performing Laboratory Blood [facility] [address] [place] [address] * POC GLUCOSE (03/22/2018 2:59 AM) Component Value Ref Range Glucose, POC 178 (H) 70 - 100 MG/DL Specimen Performing Laboratory [facility] [address] [place] [address] 11716 * POC GLUCOSE (03/22/2018 1:54 AM) Component Value Ref Range Glucose, POC 169 (H) 70 - 100 MG/DL Specimen Performing Laboratory MAIN LAB [address] [place] [address] 28736 * POC GLUCOSE (03/21/2018 11:59 PM) Component Value Ref Range Glucose, POC 152 (H) 70 - 100 MG/DL Specimen Performing Laboratory [facility] [address] [place] [address] 55317 * BLOOD GASES, ARTERIAL (03/21/2018 10:00 PM) Component Value Ref Range pH-Arterial 7.42 7.35 - 7.45 pCO2-Arterial 41 35 - 45 MMHG pO2-Arterial 85 80 - 100 MMHG Base Excess-Arterial 1.5 MMOL/L O2 Sat-Arterial 97.2 95 - 99 % Qtbmneumsow-BNL-Xui 25.7 21 - 28 MMOL/L Specimen Performing Laboratory Blood, arterial - Blood [facility] [address] [place] [address] 16628 * POC GLUCOSE (03/21/2018 9:58 PM) Component Value Ref Range Glucose, POC 143 (H) 70 - 100 MG/DL Specimen Performing Laboratory [facility] [address] [place] [address] 37678 * POC GLUCOSE (03/21/2018 9:06 PM) Component Value Ref Range Glucose, POC 122 (H) 70 - 100 MG/DL Specimen Performing Laboratory MAIN LAB [address] [place] [address] 52180 * POC GLUCOSE (03/21/2018 8:02 PM) Component Value Ref Range Glucose, POC 131 (H) 70 - 100 MG/DL Specimen Performing Laboratory [facility] [address] [place] [address] 67490 * MAGNESIUM (03/21/2018 8:01 PM) Component Value Ref Range Magnesium 2.1 1.6 - 2.6 mg/dL Specimen Performing Laboratory Blood [facility] [address] [place] [address] 34937 * COMPREHENSIVE METABOLIC PANEL (03/21/2018 8:01 PM) [...] Performing Laboratory Blood [facility] [address] [place] [address] * US ABDOMEN COMPLETE (03/21/2018 7:00 PM) [...] 70 - 100 MG/DL Specimen Performing Laboratory [facility] [address] [place] [address] 62048 * POC GLUCOSE (03/21/2018 6:00 PM) Component Value Ref Range Glucose, POC 94 70 - 100 MG/DL Specimen Performing Laboratory [facility] [address] [place] [address] 75827 * POC GLUCOSE (03/21/2018 5:02 PM) Component Value Ref Range Glucose, POC 92 70 - 100 MG/DL Specimen Performing Laboratory [facility] [address] [place] [address] 15225 * POC GLUCOSE (03/21/2018 4:37 PM) Component Value Ref Range Glucose, POC 79 70 - 100 MG/DL Specimen Performing Laboratory [facility] [address] [place] [address] 49878 * O2 SATURATION, MIXED VENOUS (03/21/2018 3:20 PM) Component Value Ref Range H7Kqr-Lkmhv Venous 76.0 % Specimen Performing Laboratory Blood [facility] [address] [place] [address] 65324 * POC GLUCOSE (03/21/2018 2:09 PM) Component Value Ref Range Glucose, POC 111 (H) 70 - 100 MG/DL Specimen Performing Laboratory [facility] [address] [place] [address] 42210 * BLOOD GASES, ARTERIAL (03/21/2018 1:08 PM) Component Value Ref Range pH-Arterial 7.38 7.35 - 7.45 pCO2-Arterial 42 35 - 45 MMHG pO2-Arterial 115 (H) 80 - 100 MMHG Base Deficit-Arterial 0.1 MMOL/L O2 Sat-Arterial 98.5 95 - 99 % Mymwvjjqdma-BPK-Yan 24.4 21 - 28 MMOL/L Specimen Performing Laboratory Blood, arterial - Blood [facility] [address] [place] [address] * MAGNESIUM (03/21/2018 1:08 PM) Component Value Ref Range Magnesium 2.0 1.6 - 2.6 mg/dL Specimen Performing Laboratory Blood [facility] [address] [place] [address] * COMPREHENSIVE METABOLIC PANEL (03/21/2018 1:08 PM) [...] Specimen Performing Laboratory Blood MAIN LAB [address] [place] [address] * POC GLUCOSE (03/21/2018 12:07 PM) Component Value Ref Range Glucose, POC 155 (H) 70 - 100 MG/DL Specimen Performing Laboratory MAIN LAB [address] [place] [address] * 2-D + DOPPLER ECHOCARDIOGRAM (03/21/2018 11:24 [...] 1.78 E/E' ratio 8.08 CV ECHO PV PRODUCE TEAM MEMBER TREVOR Werner LV mass 154.54 66 - 150 g RWT 0.35 <=0.42 Cardiology Ultrasound Siemens [id number] Machine Left Ventricle Mass Index 66.90 44 [...] 100 MG/DL Specimen Performing Laboratory MAIN LAB [address] [place] [address] 58757 * POC GLUCOSE (03/21/2018 9:59 AM) Component Value Ref Range Glucose, POC 159 (H) 70 - 100 MG/DL Specimen Performing Laboratory MAIN LAB [address] [place] [address] 16147 * POC GLUCOSE (03/21/2018 8:25 AM) Component Value Ref Range Glucose, POC 198 (H) 70 - 100 MG/DL Specimen Performing Laboratory MAIN LAB [address] [place] [address] 33946 * POC GLUCOSE (03/21/2018 6:46 AM) Component Value Ref Range Glucose, POC 199 (H) 70 - 100 MG/DL Specimen Performing Laboratory [facility] [address] [place] [address] 09741 * PTT (APTT) (03/21/2018 6:46 AM) Component Value Ref Range APTT 74.2 (H) 21.0 - 39.0 SEC Specimen Performing Laboratory Blood [facility] [address] [place] [address] 20108 * POC GLUCOSE (03/21/2018 6:03 AM) Component Value Ref Range Glucose, POC 224 (H) 70 - 100 MG/DL Specimen Performing Laboratory MAIN LAB [address] [place] [address] 54498 * CHEST SINGLE VIEW (03/21/2018 5:53 AM) Specimen Performing Laboratory RAD RESULTS Impressions 1.Cardiomegaly with mild pulmonary [...] 100 MG/DL Specimen Performing Laboratory MAIN LAB [address] [place] [address] 17759 * BLOOD GASES, ARTERIAL (03/21/2018 4:10 AM) Component Value Ref Range pH-Arterial 7.43 7.35 - 7.45 pCO2-Arterial 39 35 - 45 MMHG pO2-Arterial 80 80 - 100 MMHG Base Excess-Arterial 1.2 MMOL/L O2 Sat-Arterial 96.3 95 - 99 % Efkohxutshj-PNE-Dka 25.4 21 - 28 MMOL/L Specimen Performing Laboratory Blood, arterial - Blood MAIN LAB [address] [place] [address] 88233 * O2 SATURATION, MIXED VENOUS (03/21/2018 4:10 AM) Component Value Ref Range F4Tla-Jbbri Venous 69.3 % Specimen Performing Laboratory Blood MAIN LAB [address] [place] [address] 86065 * MAGNESIUM (03/21/2018 4:10 AM) Component Value Ref Range Magnesium 2.0 1.6 - 2.6 mg/dL Specimen Performing Laboratory Blood MAIN LAB [address] [place] [address] 96753 * COMPREHENSIVE METABOLIC PANEL (03/21/2018 4:10 AM) [...] questions. Specimen Performing Laboratory Blood MAIN LAB [address] [place] [address] 47480 * CBC (03/21/2018 4:10 AM) Component Value [...] FL Specimen Performing Laboratory Blood MAIN LAB [address] [place] [address] 75385 * POC GLUCOSE (03/21/2018 4:07 AM) Component Value Ref Range Glucose, POC 196 (H) 70 - 100 MG/DL Specimen Performing Laboratory MAIN LAB [address] [place] [address] 50638 * POC GLUCOSE (03/21/2018 3:02 AM) Component Value Ref Range Glucose, POC 199 (H) 70 - 100 MG/DL Specimen Performing Laboratory [facility] [address] [place] [address] 96460 * POC GLUCOSE (03/21/2018 1:56 AM) Component Value Ref Range Glucose, POC 175 (H) 70 - 100 MG/DL Specimen Performing Laboratory MAIN LAB [address] [place] [address] 57080 * POC GLUCOSE (03/20/2018 11:58 PM) Component Value Ref Range Glucose, POC 153 (H) 70 - 100 MG/DL Specimen Performing Laboratory [facility] [address] [place] [address] 30251 * POC GLUCOSE (03/20/2018 10:04 PM) Component Value Ref Range Glucose, POC 162 (H) 70 - 100 MG/DL Specimen Performing Laboratory [facility] [address] [place] [address] 42819 * BLOOD GASES, ARTERIAL (03/20/2018 10:00 PM) Component Value Ref Range pH-Arterial 7.42 7.35 - 7.45 pCO2-Arterial 37 35 - 45 MMHG pO2-Arterial 90 80 - 100 MMHG Base Deficit-Arterial 0.0 MMOL/L O2 Sat-Arterial 97.3 95 - 99 % Vsiljijezfe-DMK-Ddx 24.4 21 - 28 MMOL/L Specimen Performing Laboratory Blood, arterial - Blood [facility] [address] [place] [address] 93367 * POC GLUCOSE (03/20/2018 9:06 PM) Component Value Ref Range Glucose, POC 128 (H) 70 - 100 MG/DL Specimen Performing Laboratory [facility] [address] [place] [address] 73236 * O2 SATURATION, MIXED VENOUS (03/20/2018 8:10 PM) Component Value Ref Range F6Efn-Yshvw Venous 74.2 % Specimen Performing Laboratory Blood [facility] [address] [place] [address] 44517 * MAGNESIUM (03/20/2018 8:10 PM) Component Value Ref Range Magnesium 2.0 1.6 - 2.6 mg/dL Specimen Performing Laboratory Blood [facility] [address] [place] [address] 01291 * COMPREHENSIVE METABOLIC PANEL (03/20/2018 8:10 PM) [...] questions. Specimen Performing Laboratory Blood MAIN LAB [address] [place], [place] [id number] * POC GLUCOSE (03/20/2018 8:04 PM) Component Value Ref Range Glucose, POC 130 (H) 70 - 100 MG/DL Specimen Performing Laboratory MAIN LAB [address] [place] [address] 92623 * POC GLUCOSE (03/20/2018 7:36 PM) Component Value Ref Range Glucose, POC 115 (H) 70 - 100 MG/DL Specimen Performing Laboratory MAIN LAB [address] [place] [address] 21630 * POC GLUCOSE (03/20/2018 7:03 PM) Component Value Ref Range Glucose, POC 117 (H) 70 - 100 MG/DL Specimen Performing Laboratory MAIN LAB [address] [place] [address] 59176 * POC GLUCOSE (03/20/2018 5:55 PM) Component Value Ref Range Glucose, POC 168 (H) 70 - 100 MG/DL Specimen Performing Laboratory MAIN LAB [address] [place] [address] * POC ACTIVATED CLOTTING TIME (03/20/2018 4:46 PM) Component Value Ref Range Activated Clotting Time 196 s Specimen Performing Laboratory MAIN LAB [address] [place] [address] * POC GLUCOSE (03/20/2018 3:59 PM) Component Value Ref Range Glucose, POC 179 (H) 70 - 100 MG/DL Specimen Performing Laboratory MAIN LAB [address] [place] [address] 61911 * POC GLUCOSE (03/20/2018 3:03 PM) Component Value Ref Range Glucose, POC 184 (H) 70 - 100 MG/DL Specimen Performing Laboratory MAIN LAB [address] [place] [address] 43954 * POC GLUCOSE (03/20/2018 2:00 PM) Component Value Ref Range Glucose, POC 206 (H) 70 - 100 MG/DL Specimen Performing Laboratory MAIN LAB [address] [place] [address] 22449 * ABDOMEN AP ONLY (03/20/2018 1:55 PM) [...] 100 MG/DL Specimen Performing Laboratory MAIN LAB [address] [place] [address] 16873 * O2 SATURATION, MIXED VENOUS (03/20/2018 12:15 PM) Component Value Ref Range M4Aci-Anmpj Venous 74.9 % Specimen Performing Laboratory Blood [facility] [address] [place] [address] 14683 * POC GLUCOSE (03/20/2018 12:06 PM) Component Value Ref Range Glucose, POC 234 (H) 70 - 100 MG/DL Specimen Performing Laboratory MAIN LAB [address] [place] [address] 00975 * MAGNESIUM (03/20/2018 12:05 PM) Component Value Ref Range Magnesium 2.0 1.6 - 2.6 mg/dL Specimen Performing Laboratory Blood [facility] [address] [place] [address] 65326 * COMPREHENSIVE METABOLIC PANEL (03/20/2018 12:05 PM) [...] questions. Specimen Performing Laboratory Blood MAIN LAB [address] [place] [address] 05141 * POC GLUCOSE (03/20/2018 10:59 AM) Component Value Ref Range Glucose, POC 231 (H) 70 - 100 MG/DL Specimen Performing Laboratory MAIN LAB [address] [place], [place] [id number] * PTT (APTT) (03/20/2018 7:23 AM) Component Value Ref Range APTT 109.8 (H) 21.0 - 39.0 SEC Specimen Performing Laboratory Blood MAIN LAB [address] [place], [place] [id number] * POC GLUCOSE (03/20/2018 6:00 AM) Component Value Ref Range Glucose, POC 232 (H) 70 - 100 MG/DL Specimen Performing Laboratory MAIN LAB [address] [place] [address] * CHEST SINGLE VIEW (03/20/2018 4:38 AM) [...] from one day prior Findings: Right IJ [place]-Mikel catheter has been placed with the tip [...] from one day prior Findings: Right IJ [place]-Mikel catheter has been placed with the tip [...] O2 Sat-Arterial 98.3 95 - 99 % Fwtnwbaubgd-TQT-Ioj 22.9 21 - 28 MMOL/L Specimen Performing Laboratory Blood, arterial - Blood MAIN LAB [address] [place] [address] * O2 SATURATION, MIXED VENOUS (03/20/2018 4:00 AM) Component Value Ref Range H3Ysf-Eaqgs Venous 78.2 % Specimen Performing Laboratory Blood [facility] MAIN LAB [address] [place] [address] * MAGNESIUM (03/20/2018 4:00 AM) Component Value Ref Range Magnesium 2.0 1.6 - 2.6 mg/dL Specimen Performing Laboratory Blood MAIN LAB [address] [place] [address] * COMPREHENSIVE METABOLIC PANEL (03/20/2018 4:00 AM) [...] Specimen Performing Laboratory Blood MAIN LAB [address] [place] [address] * LACTIC ACID(LACTATE) (03/20/2018 4:00 AM) Component Value Ref Range Lactic Acid 1.1 0.5 - 2.0 MMOL/L Specimen Performing Laboratory Blood MAIN LAB [address] [place] [address] * CBC (03/20/2018 4:00 AM) Component Value [...] FL Specimen Performing Laboratory Blood MAIN LAB [address] [place], [place] [id number] * PTT (APTT) (03/20/2018 12:45 AM) Component Value Ref Range APTT 84.2 (H) 21.0 - 39.0 SEC Specimen Performing Laboratory Blood MAIN LAB [address] [place], [place] [id number] * BLOOD GASES, ARTERIAL (03/20/2018 12:44 AM) Component Value Ref Range pH-Arterial 7.45 7.35 - 7.45 pCO2-Arterial 29 (L) 35 - 45 MMHG pO2-Arterial 105 (H) 80 - 100 MMHG Base Deficit-Arterial 2.1 MMOL/L O2 Sat-Arterial 98.6 95 - 99 % Lyqohoukhoy-YOC-Rvy 22.6 21 - 28 MMOL/L Specimen Performing Laboratory Blood, arterial - Blood MAIN LAB [address] [place] [address] 69725 * CULTURE-BLOOD W/SENSITIVITY (03/19/2018 11:34 PM) Component Value Ref Range Battery Name BLOOD CULTURE Specimen Description BLOOD RIGHT WRIST Special Requests NONE Culture NO GROWTH 5 DAYS Report Status FINAL 03/26/2018 Specimen Performing Laboratory Blood MAIN LAB [address] [place] [address] 80682 * BLOOD GASES, ARTERIAL (03/19/2018 11:25 PM) Component Value Ref Range pH-Arterial 7.45 7.35 - 7.45 pCO2-Arterial 28 (L) 35 - 45 MMHG pO2-Arterial 122 (H) 80 - 100 MMHG Base Deficit-Arterial 3.1 MMOL/L O2 Sat-Arterial 98.9 95 - 99 % Yqojzzylfmd-HLG-Dxx 21.9 21 - 28 MMOL/L Specimen Performing Laboratory Blood, arterial - Blood MAIN LAB [address] [place] [address] 82313 * O2 SATURATION, MIXED VENOUS (03/19/2018 11:25 PM) Component Value Ref Range P7Uew-Rwtac Venous 58.7 % Specimen Performing Laboratory Blood MAIN LAB [address] [place] [address] 91519 * POC BLOOD GAS ARTERIAL (03/19/2018 10:30 PM) Component Value Ref Range PH-ART-POC 7.41 7.35 - 7.45 OMY9-TSE-JSP 31 (L) 35 - 45 MMHG PO2-ART-POC 81 80 - 100 MMHG Base Def-ART-POC 5.0 MMOL/L O2 Sat-ART-POC 96.0 95 - 99 % Pxoedyhfane-VVB-BYB 19.6 (L) 21 - 28 MMOL/L Specimen Performing Laboratory MAIN LAB [address] [place] [address] 05067 * POC GLUCOSE (03/19/2018 9:38 PM) Component Value Ref Range Glucose, POC 230 (H) 70 - 100 MG/DL Specimen Performing Laboratory MAIN LAB [address] [place], [place] [id number] * MAGNESIUM (03/19/2018 9:31 PM) Component Value Ref Range Magnesium 2.1 1.6 - 2.6 mg/dL Specimen Performing Laboratory Blood MAIN LAB [address] [place] [address] * COMPREHENSIVE METABOLIC PANEL (03/19/2018 9:31 PM) [...] Performing Laboratory Blood [facility] MAIN [facility] [address] [place] [address] * POC GLUCOSE (03/19/2018 6:01 PM) Component Value Ref Range Glucose, POC 218 (H) 70 - 100 MG/DL Specimen Performing Laboratory [facility] MAIN [facility] [address] [place] [address] * CARDIAC CATH REPORT (03/19/2018 5:02 PM) Specimen Performing Laboratory OTHER OUTSIDE LAB Procedure Note Ila Gray MD - 03/19/2018 5:02 PM CDT [facility] CARDIAC CATHETERIZATION REPORT Page 2 FARHEEN Stovall : 1950 #: [id number] MR #/Billing ID #: [id number] / [id number] DATE: 03/19/2018 SLEEVE WHEEL MAKER: Ila Gray MD DICTATING PROVIDER: Kristian Caputo MD REFERRING PHYSICIAN: INTERVENTIONAL CUSTOMER SERVICE SPECIALIST: Kristian Caputo MD PROCEDURES PERFORMED: 1. Left IJ ultrasound-guided venous access. 2. Left IJ central line placement. 3. Right IJ 8-Kenyan Fast-Cath venous access. 4. Right heart catheterization. [...] PROCEDURE: The patient was brought into the syrup machine laborer intubated and deeply sedated. We then [...] right IJ central venous catheter for an 8-Kenyan Fast-Cath. Following this, we introduced a 7.5-Kenyan [place]-Mikel catheter which was serially advanced into the [...] THE ENDOMYOCARDIAL BIOPSY: We then introduced a 7-Kenyan bioptome through the 8-Kenyan venous sheath under fluoroscopic guidance in the AP and HEBREW projections. We obtained a total of 3 [...] and subsequently transferred her out of the syrup machine laborer. Dr. Gray was scrubbed and performed fall portions of the procedure, and supervised the rest of it as well. The [place] was left at 54 cm at the level of the hub. She will be transported to the ICU for further inotropic and diuretic management. FINAL IMPRESSION: 1. Severely reduced cardiac index with very high filling pressures. 2. Moderate pulmonary hypertension, as outlined above. 3. Continued inotropic and diuretic support per the Heart Failure Team in the ICU. Ila Gray MD PCG/MedQ /[id number] cc: * O2HGB SAT-VENOUS POC (03/19/2018 4:39 PM) Component Value Ref Range O2HGB SAT-Venous POC 66.0 55 - 71 % Specimen Performing Laboratory MAIN LAB [address] [place] [address] 81681 * SURGICAL PATHOLOGY (03/19/2018 4:36 PM) Component Value Ref Range PATHOLOGY REPORT [facility] [email or web address] Department of Pathology and Laboratory Medicine [address] [place] [address] Surgical Pathology Office:[phone]:[phone] SURGICAL PATHOLOGY REPORT NAME: FARHEEN GUTIERRES SURG PATH #: [id number] MR #: [id number] SPECIMEN CLASS: SR BILLING #: [id number] ALT ID #:LOCATION: [id number] DATE OF PROCEDURE: 03/19/2018 AGE:68 SEX: F DATE RECEIVED: 03/19/2018 : 1950TIME RECEIVED:16:36 PHYSICIAN: ALEM JONES DATE OF REPORT: 03/20/2018 COPY TO:DATE OF PRINTIN03/20/2018 ################################################## ###################### Final Diagnosis: A. Right ventricle ([place] endomyocardial biopsy): Myocardium with moderate fibrosis. See [...] of Pathology and Laboratory Medicine of the [facility] ([employer]) in compliance with [...] of Pathology and Laboratory Medicine of the [facility].It has not been cleared or approved by the FDA.The FDA has determined that such clearance or approval is not necessary. Specimen Performing Laboratory [facility] LAB RESULTS * O2HGB SAT-VENOUS POC (03/19/2018 4:21 PM) Component Value Ref Range O2HGB SAT-Venous POC 65.0 55 - 71 % Specimen Performing Laboratory MAIN LAB [address] [place] [address] 27778 * O2HGB SAT-VENOUS POC (03/19/2018 4:20 PM) Component Value Ref Range O2HGB SAT-Venous POC 64.1 55 - 71 % Specimen Performing Laboratory MAIN LAB [address] [place] [address] 91370 * MAGNESIUM (03/19/2018 1:55 PM) Component Value Ref Range Magnesium 2.3 1.6 - 2.6 mg/dL Specimen Performing Laboratory Blood MAIN LAB [address] [place] [address] 87889 * COMPREHENSIVE METABOLIC PANEL (03/19/2018 1:55 PM) [...] Specimen Performing Laboratory Blood [facility] MAIN LAB [address] [place] [address] 01482 * POC GLUCOSE (03/19/2018 11:37 AM) Component Value Ref Range Glucose, POC 262 (H) 70 - 100 MG/DL Specimen Performing Laboratory [facility] MAIN LAB [address] [place] [address] 74940 * PTT (APTT) (03/19/2018 11:36 AM) Component Value Ref Range APTT 128.2 (H) 21.0 - 39.0 SEC Specimen Performing Laboratory Blood [facility] MAIN LAB [address] [place] [address] 17613 * LACTIC ACID(LACTATE) (03/19/2018 11:36 AM) Component Value Ref Range Lactic Acid 1.5 0.5 - 2.0 MMOL/L Specimen Performing Laboratory Blood [facility] MAIN LAB [address] [place], [place] [phone] * ABDOMEN AP ONLY (03/19/2018 11:24 AM) [...] right hemiabdomen are not included in the gthja-jh-auee this study. Thoracolumbar spondylosis again appreciated. Procedure [...] right hemiabdomen are not included in the aktid-yd-lphz this study. Thoracolumbar spondylosis again appreciated. IMPRESSION Advancement of gastric tube as noted above. Finalized by Masoud Dozier M.D. on 03/19/2018 12:10 PM. Dictated by Masoud Dozier M.D. on 03/19/2018 12:08 PM. * O2 SATURATION, MIXED VENOUS (03/19/2018 9:35 AM) Component Value Ref Range D2Xme-Smbgo Venous 60.5 % Specimen Performing Laboratory Blood [facility] MAIN LAB [address] [place] [address] * 2-D + DOPPLER ECHOCARDIOGRAM (03/19/2018 9:33 AM) Component Value Ref Range BSA 2.32 m2 CV ECHO PV PRODUCE TEAM MEMBER TREVOR Werner LVIDD 5.5 3.8 - 5.2 [...] A Alisson 0.300 m/s Cardiology Ultrasound Siemens [id number] Machine Left Ventricle Mass Index 68.95 44 [...] MOS/KG Specimen Performing Laboratory Urine MAIN LAB [address] [place] [address] * RVP VIRAL PANEL PCR (03/19/2018 8:18 [...] Specimen Performing Laboratory Nasopharyngeal Swab MAIN LAB [address] [place] [address] * GRAM STAIN (03/19/2018 8:15 AM) Component Value Ref Range Battery Name GRAM STAIN Specimen Description SPUTUM Special Requests NONE Gram Stain GREATER THAN 25/LPF NEUTROPHILS LESS THAN 10/LPF SQUAMOUS EPITHELIAL CELLS FEW MIXED BACTERIA Report Status FINAL 03/19/2018 Specimen Performing Laboratory Sputum MAIN LAB [address] [place] [address] 68127 * CULTURE-RESP,LOWER W/SENSITIVITY (03/19/2018 8:15 AM) Component Value Ref Range Battery Name LOWER RESP CULTURE Specimen Description SPUTUM Special Requests NONE Direct Gram Stain GREATER THAN 25/LPF NEUTROPHILS LESS THAN 10/LPF SQUAMOUS EPITHELIAL CELLS FEW MIXED BACTERIA Culture Light growth NORMAL OROPHARYNGEAL REINIER Report Status FINAL 03/21/2018 Specimen Performing Laboratory Sputum MAIN LAB [address] [place] [address] 02608 * OSMOLALITY (03/19/2018 8:10 AM) Component Value Ref Range Osmolality 290 280 - 307 MOSMOL/KG Specimen Performing Laboratory Blood MAIN LAB [address] [place] [address] 94455 * CORTISOL,RANDOM (03/19/2018 8:10 AM) Component Value Ref Range Cortisol, Random 38.4 (H) 5.0 - 20.0 MCG/DL Specimen Performing Laboratory Blood MAIN LAB [address] [place] [address] 33073 * PTT (APTT) (03/19/2018 6:30 AM) Component Value Ref Range APTT 92.7 (H) 21.0 - 39.0 SEC Specimen Performing Laboratory Blood MAIN LAB [address] [place] [address] 70025 * BLOOD GASES, ARTERIAL (03/19/2018 4:20 AM) Component Value Ref Range pH-Arterial 7.35 7.35 - 7.45 pCO2-Arterial 37 35 - 45 MMHG pO2-Arterial 102 (H) 80 - 100 MMHG Base Deficit-Arterial 4.8 MMOL/L O2 Sat-Arterial 97.4 95 - 99 % Voxbsiothmw-WOT-Dec 20.5 (L) 21 - 28 MMOL/L Specimen Performing Laboratory Blood, arterial - Blood MAIN LAB [address] [place], [place] [id number] * LACTIC ACID (BG - RAPID LACTATE) (03/19/2018 4:20 AM) Component Value Ref Range Lactic Acid,BG 2.0 0.5 - 2.0 MMOL/L Specimen Performing Laboratory Blood MAIN LAB [address] [place] [address] 37982 * HEMOGLOBIN A1C (03/19/2018 4:00 AM) Component Value Ref Range Hemoglobin A1C 6.6 (H) 4.0 - 6.0 % Comment: The ADA recommends that most patients with type 1 and type 2 diabetes maintain an A1c level <7%. Specimen Performing Laboratory Blood MAIN LAB [address] [place] [address] * LIPID PROFILE (03/19/2018 4:00 AM) Component [...] Specimen Performing Laboratory Blood MAIN LAB [address] [place] [id number] * MAGNESIUM (03/19/2018 4:00 AM) Component Value Ref Range Magnesium 1.8 1.6 - 2.6 mg/dL Specimen Performing Laboratory Blood MAIN LAB [address] [place] [id number] * COMPREHENSIVE METABOLIC PANEL (03/19/2018 4:00 AM) [...] Specimen Performing Laboratory Blood MAIN LAB [address] [place] [address] * CBC (03/19/2018 4:00 AM) Component Value [...] Specimen Performing Laboratory Blood MAIN LAB [address] [place] [address] * AEROBIC BACTERIA, SUSCEPT (03/19/2018 2:40 AM) Component Value Ref Range Aerobic Bacteria, Suscept FINAL 03/27/2018 1445 SOURCE: BLOOD, BLOOD, STREP MITIS/ORALIS GROUP SUSCEPTIBILITY, AEROBIC, KAREN FINAL STREPTOCOCCUS MITIS/ORALIS Organism identified by client. -------- Organism STREPTOCOCCUS MITIS/ORALIS AntibioticMIC (mcg/mL)Interpretation -------- Penicillin 1 I Cefepime <=0.5 S Ceftriaxone<=0.5 S Meropenem <=0.25 S Levofloxacin <=2 S Erythromycin>0.5 R Vancomycin <=1 S S=SUSCEPTIBLEI=INTERMEDIATER=RESISTANT N=NONSUSCEPTIBLED=SUSCEPTIBLE DOSE DEPENDENT [facility] LABS Specimen Performing Laboratory MAIN LAB [address] [place] [address] 83760 * CULTURE-BLOOD W/SENSITIVITY (03/19/2018 2:40 AM) Component Value Ref Range Battery Name BLOOD CULTURE Specimen Description BLOOD aerobic bottle only LEFT FA Special Requests NONE Culture POSITIVE SMEAR: GRAM POSITIVE COCCI RESEMBLING STREPTOCOCCI STREPTOCOCCUS MITIS/ORALIS GROUP (A) Report Status FINAL 03/21/2018 Organism ID STREPTOCOCCUS MITIS/ORALIS GROUP Specimen Performing Laboratory Blood MAIN LAB [address] [place] [address] 90589 Organism Antibiotic Method Susceptibility Streptococcus Penicillin G [...] CRITICAL VALUE CALLED TO AND READ BACK BY/TIME/DEIDRE Armstrong at 2015 on 03.19.18 CB STREPTOCOCCUS MITIS/ORALIS GROUP See susceptibility on duplicate isolate GEMELLA HAEMOLYSANS , probable contaminant Report Status FINAL 03/22/2018 Specimen Performing Laboratory Blood MAIN LAB [address] [place] [address] 22465 * ABDOMEN AP ONLY (03/19/2018 2:30 AM) [...] AEROGENES Specimen Performing Laboratory Urine MAIN LAB [address] [place] [address] 89860 Organism Antibiotic Method Susceptibility >100,000 organisms/ml Ampicillin [...] LAB LABEL Specimen Performing Laboratory MAIN LAB [address] [place] [address] * URINALYSIS MICROSCOPIC REFLEX TO CULTURE (03/19/2018 1:55 AM) Component Value Ref Range WBCs,UA NONE 0 - 2 /HPF RBCs,UA NONE 0 - 3 /HPF Comment,UA Urine submitted for reflex culture if criteria are met:WBC>10, positive nitrite and/or >=1+ leukocyte esterase. If quantity is not sufficient, an addendum will follow. Specimen Performing Laboratory [facility] [address] [place] [address]28 * URINALYSIS DIPSTICK REFLEX TO CULTURE (03/19/2018 1:55 AM) Component Value Ref Range Color,UA LUZ Turbidity,UA 2+ (A) CLEAR-CLEAR Specific Mcgee-Urine 1.020 1.003 - 1.035 pH,UA 5.0 5.0 - 8.0 Protein,UA 2+ (A) NEG-NEG Glucose,UA 1+ (A) NEG-NEG Ketones,UA NEG NEG-NEG Bilirubin,UA NEG NEG-NEG Blood,UA 3+ (A) NEG-NEG Urobilinogen,UA NORMAL NORM-NORMAL Nitrite,UA NEG NEG-NEG Leukocytes,UA 2+ (A) NEG-NEG Urine Ascorbic Acid, UA NEG NEG-NEG Specimen Performing Laboratory [facility] [address] [place] [address] 57395 * UREA NITROGEN-URINE RANDOM (03/19/2018 1:55 AM) Component Value Ref Range Urea Nitrogen 236 MG/DL Specimen Performing Laboratory Urine [facility] [address] [place] [address] 28399 * SODIUM-URINE RANDOM (03/19/2018 1:55 AM) Component Value Ref Range Sodium, Random 30 MMOL/L Specimen Performing Laboratory Urine [facility] [address] [place] [address] 17556 * CREATININE-URINE RANDOM (03/19/2018 1:55 AM) Component Value Ref Range Creatinine, Random 111 MG/DL Specimen Performing Laboratory Urine [facility] [address] [place] [address] 19645 * CHEST SINGLE VIEW (03/19/2018 1:34 AM) Specimen Performing Laboratory RAD RESULTS Impressions 1.Placement of lines and [...] diaphragm with the tip not in the rnwxt-wh-lpug. Placement of an intra-aortic balloon pump catheter [...] diaphragm with the tip not in the dlydy-jn-spbr. Placement of an intra-aortic balloon pump catheter [...] 2.0 MMOL/L Specimen Performing Laboratory MAIN LAB [address] [place] [address] * BLOOD GASES, ARTERIAL (03/19/2018 12:55 AM) Component Value Ref Range pH-Arterial 7.32 (L) 7.35 - 7.45 pCO2-Arterial 36 35 - 45 MMHG pO2-Arterial 195 (H) 80 - 100 MMHG Base Deficit-Arterial 6.5 MMOL/L O2 Sat-Arterial 99.4 (H) 95 - 99 % Shbilgcvgzw-SPQ-Xqh 19.2 (L) 21 - 28 MMOL/L Specimen Performing Laboratory Blood, arterial - Blood MAIN LAB [address] [place] [address] * LACTIC ACID (BG - RAPID LACTATE) (03/19/2018 12:30 AM) Component Value Ref Range Lactic Acid,BG 2.9 (H) 0.5 - 2.0 MMOL/L Specimen Performing Laboratory MAIN LAB [address] [place], [place] [id number] * PROCALCITONIN (03/19/2018 12:15 AM) Component Value Ref Range Procalcitonin 1.08 (H) <0.10 NG/ML Specimen Performing Laboratory MAIN LAB [address] [place], [place] [address] * CREATINE KINASE-CPK (03/19/2018 12:15 AM) Component Value Ref Range Creatine Kinase 86 21 - 215 U/L Specimen Performing Laboratory MAIN LAB [address] [place] [address] 04475 * FREE T4-FREE THYROXINE (03/19/2018 12:15 AM) Component Value Ref Range T4-Free 1.1 0.6 - 1.6 NG/DL Specimen Performing Laboratory MAIN LAB [address] [place] [address] 69267 * TROPONIN-I (03/19/2018 12:15 AM) Component Value Ref Range Troponin-I 0.02 0.0 - 0.05 NG/ML Specimen Performing Laboratory Blood MAIN LAB [address] [place] [address] 13758 * TSH WITH FREE T4 REFLEX (03/19/2018 12:15 AM) Component Value Ref Range TSH 6.450 (H) 0.35 - 5.00 MCU/ML Specimen Performing Laboratory Blood MAIN LAB [address] [place] [address] * BNP (B-TYPE NATRIURETIC PEPTI) (03/19/2018 12:15 AM) Component Value Ref Range B Type Natriuretic 350.0 (H) 0 - 100 PG/ML Peptide Specimen Performing Laboratory Blood MAIN LAB [address] [place] [address] * MAGNESIUM (03/19/2018 12:15 AM) Component Value Ref Range Magnesium 1.6 1.6 - 2.6 mg/dL Specimen Performing Laboratory Blood MAIN LAB [address] [place] [address] * COMPREHENSIVE METABOLIC PANEL (03/19/2018 12:15 AM) [...] Specimen Performing Laboratory Blood MAIN LAB [address] [place] [address] * PROTIME INR (PT) (03/19/2018 12:15 AM) Component Value Ref Range INR 1.9 (H) 0.8 - 1.2 Specimen Performing Laboratory Blood MAIN LAB [address] [place] [address] * PTT (APTT) (03/19/2018 12:15 AM) Component Value Ref Range APTT 29.4 21.0 - 39.0 SEC Specimen Performing Laboratory Blood MAIN LAB [address] [place] [address] * CBC AND DIFF (03/19/2018 12:15 AM) [...] Specimen Performing Laboratory Blood MAIN LAB [address] [place] [address] * GENERAL RAD CHEST EXTERNAL IMAGING (03/18/2018) Narrative This order has been auto finalized and does not contain a result. in this encounter Visit Diagnoses Not on filein this encounter Admitting Diagnoses Diagnosis cardiogenic shock Cardiogenic shock [...] CDT Given 04/01/2018 650 mg 11:22 CDT aluminum/magnesium hydroxide (MAALOX) oral suspension 30 mL 30 mL, Oral, EVERY 4 HOURS PRN, Starting Sun03/19/18 at 1634, Until Sun04/03/18 at 1259, Indigestion/Heartburn amiodarone (CORDARONE) tablet 400 mg Given 04/02/2018 [...] 81 mg, Oral, DAILY, First dose on Sun 16:51 CDT 04/01/18 at 1700, Until Discontinued Given 04/02/2018 81 mg 09:54 CDT Given 04/03/2018 81 mg 09:44 CDT atorvastatin (LIPITOR) tablet 40 mg Given 04/01/2018 40 mg 40 mg, Oral, DAILY, First dose on Sun 16:51 CDT 04/01/18 at 1700, Until Discontinued Given 04/02/2018 40 mg 09:54 CDT Given 04/03/2018 40 mg 09:42 CDT bumetanide (BUMEX) tablet 2 mg Given 04/01/2018 2 mg 2 mg, Oral, DAILY, First dose on Sun 08:27 CDT 04/01/18 at 0900, Until Discontinued Given 04/02/2018 2 mg 09:52 CDT carboxymethylcellulose (REFRESH PLUS) Given 03/21/2018 1 drop 0.5 % ophthalmic solution 1 drop 13:03 CDT 1 drop, Both Eyes, NEEDED, Starting Anuradha 03/21/18 at 1314, Until Sun04/03/18 at 1259, Dry Eyes, Irritated Eyes Given 03/21/2018 1 drop 15:35 CDT Given 03/22/2018 1 drop 11:40 CDT digoxin (LANOXIN) tablet 62.5 mcg Given 04/03/2018 62.5 mcg 62.5 mcg, Oral, DAILY, First dose on Mon 09:43 CDT 04/01/18 at 1030, Until Discontinued, Hold for heart rate < 60 bpm NOTE: PHARMACOKINETIC MONITORING insulin aspart U-100 (NOVOLOG FLEXPEN) Given 04/01/2018 6 Units Arm, Right injection PEN 0-14 Units 17:42 CDT 0-14 Units, Subcutaneous, BEFORE MEALS AND AT BEDTIME, First dose on Anuradha 03/28/18 at 0815, Until Discontinued, -POC glucose 140-180mg/dL at , , administer 2 units insulin, at , 03* administer 0 units. -POC glucose 181-220mg/dL at , , administer 4 units insulin, at , * administer 2 units. -POC glucose 221-260mg/dL at , , administer 6 units insulin, at , * [...] 21:37 CDT insulin aspart U-100 (NOVOLOG FLEXPEN) injection [...] HIGH ALERT Medication. insulin glargine (LANTUS SOLOSTAR, BASAGLAR) injection PEN 22 Units 22 Units, Subcutaneous, AT BEDTIME DAILY, First dose on Sun04/03/18 at 2100, Until Discontinued, -- Do not mix with other insulins -- NOTE: This is a HIGH ALERT Medication. levothyroxine (SYNTHROID) tablet 125 mcg Given 04/01/2018 125 mcg 125 mcg, Per NG tube, DAILY, First dose 06:02 CDT on Sun03/19/18 at 0700, Until Discontinued, Give 1 hour [...] over 12 Hours, DAILY, First dose on Sun03/31/18 at 1330, Until Discontinued, NURSING PLEASE NOTE: Apply patch ONCE DAILY around groin area and REMOVE after designated duration. Apply only to intact skin. Patch may be cut to fit affected area. Patch/Topical Applied 04/02/2018 1 patch Leg, Right 09:49 CDT lidocaine PF 1% (10 mg/mL) injection 0.1-2 mL 0.1-2 mL, Injection, NEEDED, Starting Sun03/26/18 at 1500, Until Sun04/03/18 at 1259, Other..., for peripheral IV insertion lisinopril (PRINIVIL; ZESTRIL) tablet 10 Given 04/03/2018 10 mg mg 09:43 CDT 10 mg, Oral, DAILY, First dose on Sun04/03/18 at 0900, Until Discontinued melatonin tablet 3 mg Given 03/31/2018 3 mg 3 mg, Oral, AT BEDTIME DAILY, First dose 20:27 CDT on Sun03/27/18 at 2100, Until Discontinued Given 04/01/2018 3 mg 21:36 CDT Given 04/02/2018 3 mg 21:35 CDT nystatin (NYSTOP) topical powder Given 04/01/2018 Topical, TWICE DAILY, First dose on Sun 21:37 CDT 03/21/18 at 1315, Until Discontinued, Apply bilaterally under breasts and bilaterally in groins. Given 04/02/2018 09:52 CDT Given 04/02/2018 21:36 CDT PARoxetine (PAXIL) tablet 40 mg Given 04/01/2018 40 mg 40 mg, Per NG tube, DAILY, First dose on 08:27 CDT Sun03/19/18 at 0900, Until Discontinued Given 04/02/2018 40 mg 09:52 CDT Given 04/03/2018 40 mg 09:42 CDT potassium chloride SR (K-DUR) tablet 20 Given [...] CRUSH. Tablet may be split in half. spironolactone (ALDACTONE) tablet 25 mg Given 04/02/2018 25 mg 25 mg, Oral, DAILY, First dose on Tue 17:06 CDT 04/02/18 at 1745, Until Discontinued, NURSING: Please educate patient and document: Avoid using salt substitutes which have a high potassium content (Nu-Salt). in this encounter
--- OUTSIDE RECORDS SUMMARY | 2018-04-03 14:14 | XMS REPORT | Encounter Summary ---
Author Author [facility] Organization [facility] Address Unknown Phone Unavailable Care Team Providers Care Extrusion Die Template Maker Name Role Phone Brad Cummings MD PCP Encounter Details Date Type Department Care Team Description 03/25/2018 Procedure Pass [facility] [address] [place], [place] [id number] Social History Tobacco Use Types Packs/Day Years [...]
--- OUTSIDE RECORDS SUMMARY | 2018-04-03 14:14 | XMS REPORT | Encounter Summary ---
Author Author [facility] Organization [facility] Address Unknown Phone Unavailable Care Team Providers Care 911 Telecommunicator Name Role Phone Brad Cummings MD PCP Encounter Details Date Type Department Care Team Description 03/26/2018 Anesthesia [facility] Prateek Prakash CRNA Event [address] [place] [address] [place] [address] [place], [place] [id number] Anesthesia Record Procedure Name Responsible Anesthesia Start Time Anesthesia Stop Time Anesthesiologist TRANSESOPHAGEAL ECHOCARDIOGRAM No events on file. Meds * No agents on file. * No blood administrations on file. No LDAs on file. in this encounter Social History Tobacco Use [...]
--- OUTSIDE RECORDS SUMMARY | 2018-04-03 14:14 | XMS REPORT | Encounter Summary ---
Author Author [facility] Organization [facility] Address Unknown Phone Unavailable Care Team Providers Care Psychiatry Instructor Name Role Phone Brad Cummings MD PCP Encounter Details Date Type Department Care Team Description 03/25/2018 Procedure Pass [facility] [address] [place], [place] [id number] Social History Tobacco Use Types Packs/Day Years [...]
--- OUTSIDE RECORDS SUMMARY | 2018-04-03 14:15 | XMS REPORT | Encounter Summary ---
Author Author [facility] Organization [facility] Address Unknown Phone Unavailable Care Team Providers Care Animal Care Technician Name Role Phone No Pcp, Na PCP Unavailable Brad Cummings MD PCP Encounter Details Date Type Department Care Team Description 03/19/2018 Procedure Pass [facility] [address] [place] [address] Social History Tobacco Use Types Packs/Day Years Used Date Former Smoker Cigarettes 1 40 Comments: Quit 8 years ago Alcohol Use Drinks/Week oz/Week Comments Yes Occassionally Sex Assigned at Date Recorded Not on file as of this encounter Plan of Treatment Not on fileas of this encounter Visit Diagnoses Not on filein this encounter
--- OUTSIDE RECORDS SUMMARY | 2018-04-03 14:20 | XMS REPORT | Encounter Summary ---
Author Author [facility] Organization [facility] Address Unknown Phone Unavailable Care Team Providers Care Software Technical Lead Name Role Phone No Pcp, Na PCP Unavailable Reason for Visit * Auth/Cert Status Reason Specialty Diagnoses / Referred By Referred To Procedures Contact Contact Diagnoses cardiogenic shock Cardiogenic shock (HCC) Encounter Details Date Type Department Care Team Description 03/19/2018 Surgery Cardiac Catheterization Ila Gray MD CATHETERIZATION RIGHT Laboratory [address] [facility] [address] [place] [address] [place] [address] [phone] Social History Tobacco Use Types Packs/Day Years [...] PROGRESS NOTE Patient Name: Farheen Gutierres Room/Bed: [facility]/ Admitting Diagnosis: cardiogenic shock Cardiogenic shock (HCC) [...] Therapist: Dagmar Hernandez OTR/L Date: 04/02/2018 * aTmy Rose RN - 04/02/2018 1:14 AM CDT [...] the data was not accurate, but the counter intelligence technician stated later he thought it might [...] and provide intervention as indicated. Therapist: Dagmar Hernandez OTR/L [id number] Date: 04/01/2018 * Dana Gregg - 04/01/2018 12:58 PM CDT CLINICAL NUTRITION Clinical Nutrition Follow-Up Summary Nutrition Assessment of Patient: Malnutrition Assessment: Adequately nourished prior to admission Current Oral Intake: Improving, Marginally Adequate Estimated Calorie Needs: 4411-7385 (25-28 kcals/kg per DBW 69.9kg) Estimated Protein [...] for regular diet with thin liquids by PANEL COVERER on 03/25. Now on cardiac diet with thin liquids. Note weight is down 10.3 kg, but is net negative 29.4 L per I /Os. PO intakes continue to improve. She is eating 50-100% of her meals. Denies GI issues. Labs and meds reviewed. Note plans to [facility] Recommendation: Add on 60 g/meal consistent [...] met;Ongoing Dana Pemberton, MS, RD, LD Pager [phone] Office [phone] * Fabian Aaron, PT - 04/01/2018 11:55 [...] Minimal Assist;of 1st person;Standby Assist;of 2nd person (Groundskeeping Maintenance Worker provides chair follow today) Gait: Assistive Device: [...] dynamic balance activities as appropriate. Therapist: Fabian Aaron PT, DPT Date: 04/01/2018 * Toni Aly [...] Date: 03/31/2018 Fall AC=Airway clearance AM=Aerosolized medication BA=Oxford aerosol DB&C=Deep breathe & cough FEV1=Forced expiratory volume in first second) IC=Inspiratory capacity LE=Lung expansion MDI=Metered dose inhaler Neb=Nebulizer O2=Oxygen Oxim=Oximetry PEFR=Peak expiratory flow rate INSTALLATION AND SERVICE TECHNICIAN=Rapid Response Team * Philippe Aguero MD - [...] to go to the inpatient facility in [facility]. If she fails the dobutamine weaning she will need to transition to milrinone, which is possible to take at that facility in [place]. I understand dobutamine is not possible to [...] on 11/27 -2 lpm NC - no FACILITY OPERATIONS MANAGER supplemental oxygen requirement GPC bacteremia Klebsiella UTI - 1/ BCx bottle positive for Staph and 2/2 [...] on therapy due to hypotension DM - FACILITY OPERATIONS MANAGER levemir 18 units BID, metformin and Januvia - 24 hour insulin requirement 195 units, 75 % ~ 150 units, though was on steroids and had D5 infusion at the time > Will schedule for 22 units lantus QAM and QHS and 8 units novolog TID w/ meals, MDCF HLD - FACILITY OPERATIONS MANAGER simvastatin > Continue simvastatin > Lipid profile [...] inpatient rehab. Patient requesting a facility in [place], [place]. Will need to be on milrinone if inotrope needed Patient seen and discussed with Dr. Aguero. Myles Aziz Internal Medicine / PGY-2 Pager [phone] Subjective: Farheen Gutierres is a 68 y.o. [...] of. VSS, asymptomatic. Cardiology text paged (tracking #[id number]) with vitals and above info. * Naomi [...] Identified by patient (Short Term=during hospitalization): * Baudilio, Naomi - 03/30/2018 6:39 PM CDT Pt complained [...] on 11/27 -2 lpm NC - no FACILITY OPERATIONS MANAGER supplemental oxygen requirement GPC bacteremia Klebsiella UTI - 11/27 BCx bottle positive for Staph and /2 blood cx bottles positive for Strep - [...] on therapy due to hypotension DM - FACILITY OPERATIONS MANAGER levemir 18 units BID, metformin and Januvia - 24 hour insulin requirement 195 units, 75 % ~ 150 units, though was on steroids and had D5 infusion at the time > Will schedule for 18 units lantus QHS and 6 units novolog TID w/ meals, HDCF HLD - FACILITY OPERATIONS MANAGER simvastatin > Continue simvastatin > Lipid profile [...] inpatient rehab. Patient requesting a facility in [place], [place]. Patient seen and discussed with Dr. Aguero. Myles Nmobdulio Internal Medicine / PGY-2 Pager [phone] Subjective: Farheen Gutierres is a 68 y.o. [...] targeting transfer/discharge to the inpatient rehab in [facility] the [facility]. She needs ongoing nutritional support and physical [...] PROGRESS NOTE Patient Name: Farheen Gutierres Room/Bed: [place] [address] Admitting Diagnosis: cardiogenic shock Cardiogenic shock (HCC) [...] Bed mobility, Stairs, Ambulation Therapist: EMILEE Dunn/Micki [id number] Date: 03/29/2018 * Tomasa Costa, PT - [...] Score: 38.32 Basic Mobility CMS 0-100%: 47.12 [facility] G Code Modifier for Basic Mobility: CK [...] and make plans for discharge to the nursing home facility in [facility]. She remains in regular rhythm. Hemoglobin is [...] on 11/27 -2 lpm NC - no FACILITY OPERATIONS MANAGER supplemental oxygen requirement GPC bacteremia Klebsiella UTI [...] on therapy due to hypotension DM - FACILITY OPERATIONS MANAGER levemir 18 units BID, metformin and Januvia - 24 hour insulin requirement 195 units, 75 % ~ 150 units, though was on steroids and had D5 infusion at the time > Will schedule for 18 units lantus QHS and 6 units novolog TID w/ meals, HDCF HLD - FACILITY OPERATIONS MANAGER simvastatin > Continue simvastatin > Lipid profile [...] inpatient rehab. Patient requesting a facility in [place], [place]. Patient seen and discussed with Dr. Aguero. Wayne Rivera M.D. Internal Medicine/Psychiatry PGY-1 Pager: [phone] Subjective: Farheen Gutierres is a 68 y.o. [...] 20,000 Units/ sodium bicarbonate 650 mg(#) PRN (Web Site Developer from Rx) Associated attestation - Philippe Aguero [...] from the original. Progress Note Name: Farheen Taylor Abiodunronnie Admission Date: 03/18/2018 Admission Diagnosis: cardiogenic shock [...] on therapy due to hypotension DM - FACILITY OPERATIONS MANAGER levemir 18 units BID, metformin and Januvia - 24 hour insulin requirement 195 units, 75 % ~ 150 units > Will schedule for 35 units lantus and 23 units novolog TID w/ meals, HDCF until NPO HLD - FACILITY OPERATIONS MANAGER simvastatin > Continue > Lipid profile (03/19/18): [...] Patient seen and discussed with Dr. Aguero. [facility] Internal Medicine / PGY-2 Pager [phone] Subjective: Farheen Gutierres is a 68 y.o. [...] 20,000 Units/ sodium bicarbonate 650 mg(#) PRN (Web Site Developer from Rx) Associated attestation - Philippe Aguero [...] oral residue noted after swallow. Therapist: Micki Cates/LARRY-PANEL COVERER (Pager [phone]; Voalte: [phone]) Date: 03/28/2018 * Dana Gregg - 03/28/2018 11:36 AM CDT CLINICAL NUTRITION Clinical Nutrition Follow-Up Summary Nutrition Assessment of Patient: Malnutrition Assessment: Adequately nourished prior to admission Current Oral Intake: Improving, Marginally Adequate Estimated Calorie Needs: 5788-6682 (25-28 kcals/kg per DBW 69.9kg) Estimated Protein [...] for regular diet with thin liquids by PANEL COVERER on 03/25. Now on cardiac diet with thin liquids. Note weight is down 20.5 kg, but is net negative 23.4 L per I /Os. PO intakes have continued to improve. Yesterday she ate 90% of two meals and this morning 85% of her breakfast hungarian toast, sausage, orange juice, and fruit. She reports good appetite and she was eating well FACILITY OPERATIONS MANAGER. Denies GI issues. She avoids added sugars for her diabetes. Declines carb counting education today. POC BG x 24 hr ranging 75-279 mg/dL. Made pt aware Boost GC available upon request. Will continue to cox monett. Recommendation: Add on 60 g/meal consistent carb [...] Hours Dana Pemberton, MS, RD, LD Pager [phone] Office [phone] * Scarlett Joe RN - 03/28/2018 10:34 [...] ASSESSMENT NOTE Patient Name: Farheen Gutierres Room/Bed: [place] [address] Admitting Diagnosis: cardiogenic shock Cardiogenic shock (HCC) [...] Bathroom Toilet: Standard Prior Function Level Of [place]: Independent with ADLs and functional transfers Lives [...] Bed mobility, Stairs, Ambulation Therapist: Beth HEBERT/Micki [id number] Date: 03/28/2018 * Antonino Chand, RT - [...] Date: 03/28/2018 Fall AC=Airway clearance AM=Aerosolized medication BA=Oxford aerosol DB&C=Deep breathe & cough FEV1=Forced expiratory volume in first second) IC=Inspiratory capacity LE=Lung expansion MDI=Metered dose inhaler Neb=Nebulizer O2=Oxygen Oxim=Oximetry PEFR=Peak expiratory flow rate INSTALLATION AND SERVICE TECHNICIAN=Rapid Response Team * Tomasa Costa, PT - [...] questions or concerns. Monica Coello PA-C Pager [phone] * Philippe Aguero MD - 03/27/2018 4:26 [...] her and answered all the questions. Philippe Agureo MD * Jorge A Acosta MD - [...] fully evaluated, and discussed patient with the [facility] ICU team. The patient is critically [...] Acosta MD Date: 03/27/2018 __ Subjective: Farheen Gutireres is a 68 y.o. female. Stable night. [...] Units / sodium bicarbonate 650 mg(#) PRN (Web Site Developer from Rx) Vital Signs: Last Filed Vital [...] radiology reviewed. Jorge A Acosta MD Pager [phone] * Shar Yousif MBBS - 03/27/2018 11:59 [...] on therapy due to hypotension DM - FACILITY OPERATIONS MANAGER levemir 18 units BID, metformin and Januvia - 24 hour insulin requirement 195 units, 75 % ~ 150 units > Will schedule for 35 units lantus and 23 units novolog TID w/ meals, HDCF until NPO HLD - FACILITY OPERATIONS MANAGER simvastatin > Continue > Lipid profile (03/19/18): [...] Patient seen and discussed with Dr. Aguero. [facility] Internal Medicine / PGY-2 Pager [phone] Subjective: Farheen Gutierres is a 68 y.o. [...] PER MINUTE (03/27 1100) SpO2: 98 % (05/02 1100) O2 Delivery: Nasal Cannula (03/27 1100) [...] (DIPRIVAN) 10 mg/mL IV infusion Stopped (03/26/18 0755) sodium chloride 0.9 % infusion 1,000 mL (03/27/18 0822) Prnacetaminophen Q4H PRN, aluminum/magnesium hydroxide Q4H PRN, carboxymethylcellulose PRN, lidocaine PF PRN, pancrelipase 20,000 Units/ sodium bicarbonate 650 mg(#) PRN (Web Site Developer from Rx) Associated attestation - Philippe Aguero [...] patient 1 time Therapist: Coreen Eason MS, L/CCC-PANEL COVERER, [id number] Date: 03/27/2018 * Shahida Patterson, PT - [...] intervention as indicated. Therapist: Beth Ardon OTR/L [id number] Date: 03/27/2018 * Isa Hackett, RN - 03/27/2018 6:37 AM CDT [...] hospitalization): To get my ICD placed today. senior care heart failure goals identified by the patient: [...] and pericarditis Clin Microbiol Rev v.16(2); 2002 [id number] J Clin Microbiol. 2010;49(5):2072-3 Urine culture positive [...] cardiology on 03/18/18 in transfer for from [facility] in [place], [place] for cardiogenic shock which occurred after [...] sought evaluation at her local hospital in [place], [place]. There she was noted to be in atrial fibrillation with RVR and was therefore promptly transferred to [facility] in [place], [place]. According to her while at [facility] the patient deteriorated abruptly with a [...] and a normal coronary angiogram (done at [facility]). At the time of ID consultation on 03/23/18, the most recent echocardiogram was on 03/21/18. This was a technically difficult study but showed severely reduced LV systolic function with an estimated EF of 20% and severe, global hypokinesis. The right ventricle was moderately enlarged and also showed decreased systolic function. There was trace mitral valve regurgitation and [id number] tricuspid valve regurgitation. Neither the AV nor [...] back a cold from a trip to [place] and on about 03/13 the patient told [...] Units / sodium bicarbonate 650 mg(#) PRN (Web Site Developer from Rx) Physical Examination Vital Signs: Last [...] images viewed. Impression: Mejia Rivas MD Pager [phone] Infectious Diseases Faculty * Breanna Puckett, RD - 03/26/2018 1:53 PM CDT CLINICAL NUTRITION Clinical Nutrition Follow-Up Summary Nutrition Assessment of Patient: Malnutrition Assessment: Adequately nourished prior to admission Current Oral Intake: NPO Estimated Calorie Needs: 7866-9804 (25-28 kcals/kg per DBW 69.9kg) Estimated Protein [...] for regular diet with thin liquids by PANEL COVERER on 03/25. Pt was on FLD +nectar thick liquids yesterday; appears intake limited. Pt has been off unit during attempts to see today. NPO today for cardiac PET this AM and then planned YESI with cardioversion. Tentative plan for pacemaker/defibrillator tomorrow. Note weight down 17.5kg, but is net negative 21.9L per I/o. Recommendation: PO diet textures per PANEL COVERER recs; goal diet of 60g carb/meal consistent [...] 72 Hours Breanna Puckett MA, RD, LD, [facility] *[phone] * Philippe Aguero MD - 03/26/2018 [...] y.o. y.o. female. : 1950 MRN# : [id number] Procedure to be performed: YEIS and Cardioversion Expected Procedure Date: 03/26/18 Indication: [...] result Ordering provider: Shar Yousif MBBS 03/19/18 2231 Resulting lab: MAIN LAB Specimen Information Source Collected On Blood 03/19/18 3974 Components Component Value Flag Battery Name BLOOD [...] fully evaluated, and discussed patient with the [facility] ICU team. The patient is critically [...] 20,000 Units/ sodium bicarbonate 650 mg(#) PRN (Web Site Developer from Rx) Vital Signs: Last Filed Vital [...] radiology reviewed. Jorge A Acosta MD Pager [phone] * Clare Mccarthy, DIEGO-ASSISTANT PROFESSOR SCULPTURE - 03/26/2018 12:11 PM CDT Formatting of [...] no known history per the patient - [id number] Score 5, on Eliquis 5 mg bid [...] week). Will follow along with you. Clare Mccarthy, BERNARDINO-C ([facility] [phone]) Heart Rhythm Management ([facility] [phone]) Medicare attestation Subjective: Awake and alert up [...] 20,000 Units/ sodium bicarbonate 650 mg(#) PRN (Web Site Developer from Rx) Objective Vital Signs: Last Filed [...] in duration LUIS Lopez (pgr [phone]) * Jessika Cruz - 03/26/2018 12:06 PM CDT [employer] Note: Admit Date: 03/18/2018 Reason for visit: Follow up spiritual support Synopsis of visit: [employer] visited in the hallway with patient's , Niharika, who talked about the progress patient is making. is a mechanical systems engineer and talked about the importance of understanding patient's condition. seemed to be coping and appears positive about patient's progress. [employer] visited briefly with patient who was sitting in a chair. She talked about tests/procedures she is having today and her hope to be able to eat and drink soon. Patient expressed her hope that her situation is improving. [employer] listened empathically, offering support and words of encouragement. [employer] affirmed the strength of patient and 's relationship. [employer] will continue to follow for spiritual and emotional support. The spiritual care team is available as needed, 18/06, through the [employer] switchboard ([phone]). For immediate response, please page [phone]. For a response within 24 hours, please submit an order in O2 for a broomcorn scraper consult or call the administrative voicemail at [phone]. Please page or use consult order if patient or family requests visit. Date/Time: User: Pager: [phone] 03/26/2018 12:06 PM Jessika Cruz * Beth Ardon - 03/26/2018 11:05 AM CDT Formatting of this note may be different from the original. OCCUPATIONAL THERAPY PROGRESS NOTE Patient Name: [facility] Room/Bed: [place] [address] Admitting Diagnosis: cardiogenic shock Cardiogenic shock (HCC) [...] Bathroom Toilet: Standard Prior Function Level Of [place]: Independent with ADLs and functional transfers Lives [...] on therapy due to hypotension DM - FACILITY OPERATIONS MANAGER levemir 18 units BID, metformin and Januvia - 24 hour insulin requirement 195 units, 75 % ~ 150 units > Will schedule for 35 units lantus and 23 units novolog TID w/ meals, HDCF until NPO HLD - FACILITY OPERATIONS MANAGER simvastatin > Continue > Lipid profile (03/19/18): [...] Shar Yousif Internal Medicine / PGY-2 Pager [phone] Subjective: Farheen Gutierres is a 68 y.o. female. No overnight events. She was extubated 03/22 , no new symptoms reported today. Patient denied Chest pain, abdominal pain, changes with bowel movements or urine, weakness, dizziness, palpitations, headache and difficulty breathing. . 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 The patient is critically [...] 20,000 Units/ sodium bicarbonate 650 mg(#) PRN (Web Site Developer from Rx) Vital Signs: Last Filed Vital [...] Intake/Output Summary (Last 24 hours) at 03/25/18 170 Last data filed at 03/25/18 1700 Gross [...] radiology reviewed. Jorge A Acosta MD Pager [phone] * Mary Maguire RN - 03/25/2018 3:42 [...] on therapy due to hypotension DM - FACILITY OPERATIONS MANAGER levemir 18 units BID, metformin and Januvia - 24 hour insulin requirement 195 units, 75 % ~ 150 units > Will schedule for 35 units lantus and 23 units novolog TID w/ meals, HDCF until NPO HLD - FACILITY OPERATIONS MANAGER simvastatin > Continue > Lipid profile (03/19/18): [...] seen and discussed with Dr. Jones. Myles Nmobdulio Internal Medicine / PGY-2 Pager [phone] Subjective: Farheen Gutierres is a 68 y.o. [...] Units/ sodium bicarbonate 650 mg (#) PRN (Web Site Developer from Rx) Associated attestation - Philippe Aguero [...] YESI cardioversion tomorrow. Philippe Aguero MD * AjayTiffany rascon - 03/25/2018 10:44 AM CDT SPEECH-LANGUAGE PATHOLOGY [...] Pt declining to put dentures in during PANEL COVERER visit. Pt exhibits moderately prolonged yet thorough [...] / RECOMMENDATIONS: Continue treatment daily. Therapist: Micki Cates/LARRY-PANEL COVERER (Pager [phone]; Voalte: [phone]) Date: 03/25/2018 * Mulu Rodney, RT - [...] Date: 03/25/2018 Fall AC=Airway clearance AM=Aerosolized medication BA=Oxford aerosol DB&C=Deep breathe & cough FEV1=Forced expiratory volume in first second) IC=Inspiratory capacity LE=Lung expansion MDI=Metered dose inhaler Neb=Nebulizer O2=Oxygen Oxim=Oximetry PEFR=Peak expiratory flow rate INSTALLATION AND SERVICE TECHNICIAN=Rapid Response Team * Tomasa Costa, PT - [...] cardiomyopathy (HCC) 03/19/2018 Type II diabetes mellitus ([facility]) 03/19/2018 Mobility Progressive Mobility Level: Active transfer [...] Bathroom Toilet: Standard Prior Function Level Of [place]: Independent with ADLs and functional transfers Lives [...] Bed mobility, Stairs, Ambulation Therapist: Beth HEBERT/Micki [id number] Date: 03/25/2018 * Isa Hackett RN - [...] ordered: None Total Net loss this hospital stay:-15,8.3 Daily Assessment of Patient Stated Goals: Short Term Goal Identified by patient (Short Term=during hospitalization): To get more comfortable 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 The patient is critically [...] 200 mL infusion 0.5 mg/ min (03/24/18 1200) bumetanide (BUMEX) 24 mg in empty IV bag 96 mL IV drip (std conc) 0.5 mg/hr (03/24/18 1200) DOBUTamine (DOBUTREX) 1,000 mg in sodium chloride 0.9% (NS) 250 mL IV drip ( std conc) 3 mcg/kg/min (03/24/18 1200) insulin regular (NOVOLIN R) 100 Units in sodium chloride 0.9% (NS) 100 mL IV drip (std conc) 8.5 Units/hr (03/24/18 0919) PRN and Respiratory Meds:acetaminophen Q4H PRN, aluminum/magnesium hydroxide Q4H PRN, carboxymethylcellulose PRN, pancrelipase 20,000 Units/ sodium bicarbonate 650 mg(#) PRN (Web Site Developer from Rx) Vital Signs: Last Filed Vital [...] Pertinent radiology reviewed. Bravo Anaya MD Pager [phone] * Tiffany Moss - 03/24/2018 11:05 AM [...] / RECOMMENDATIONS: Continue treatment daily. Therapist: Micki Cates/LARRY-PANEL COVERER (Pager [phone]; Voalte: [phone]) Date: 03/24/2018 * Beth Ardon - 03/24/2018 10:29 AM CDT Formatting of this note may be different from the original. OCCUPATIONAL THERAPY ASSESSMENT NOTE Patient Name: [facility] Room/Bed: 90[facility] Admitting Diagnosis: cardiogenic shock Cardiogenic shock (HCC) [...] Bathroom Toilet: Standard Prior Function Level Of [place]: Independent with ADLs and functional transfers Lives [...] and clinical judgment. Therapist: Beth Ardon OTR/Micki [id number] Date: 03/24/2018 * Shivani Bustos MBBS - [...] on therapy due to hypotension DM - FACILITY OPERATIONS MANAGER levemir 18 units BID, metformin and Januvia > Hold oral hypoglycemics > Continue insulin gtt for now, transition to SC insulin tomorrow > A1c (03/19/18): 6.6% HLD - FACILITY OPERATIONS MANAGER simvastatin > Continue > Lipid profile (03/19/18): total cholesterol 66, trigs 35, HDL 36, LDL 23 Fluids, Electrolytes, Nutrition: no IVF, replace prn, FLD Prophylaxis:NO heparin products ,Eliquis Code: full Lines:arterial line, OG tube, Mc catheter, CVC, rectal tube Disposition: Continue admission to CICU ( transfer out tomorrow) Patient seen and discussed with Dr. Jones. ESTELA Marroquin PGY-2 Internal Medicine [id number] Subjective: Farheen Gutierres is a 68 y.o. [...] IV drip (std conc) 0.5 mg/hr (03/24/18 0800) DOBUTamine (DOBUTREX) 1,000 mg in sodium chloride 0.9% (NS) 250 mL IV drip ( std conc) 3 mcg/kg/min (03/24/18 0800) insulin regular (NOVOLIN R) 100 Units in sodium chloride 0.9% (NS) 100 mL IV drip (std conc) 7 Units/hr (03/24/18 0712) Prnacetaminophen Q4H PRN, aluminum/magnesium hydroxide Q4H PRN, carboxymethylcellulose PRN, pancrelipase 20,000 Units/ sodium bicarbonate 650 mg (#) PRN (Web Site Developer from Rx) Associated attestation - Alem Jones [...] dysfunction still not clear, LHC normal at [place], biopsy here negative 3. RV failure, suspect [...] Term=during hospitalization): "To be able to eat" senior care heart failure goals identified by the patient: [...] fully evaluated, and discussed patient with the [facility] ICU team. The patient is critically [...] 20,000 Units/ sodium bicarbonate 650 mg(#) PRN (Web Site Developer from Rx) Vital Signs: Last Filed Vital Signs: 24 Hour Range ABP: 122/65 (03/23 1600) Temp: 36.6 C (97.8 F) (03/23 1600) Pulse: 111 (03/23 1600) Respirations: 19 PER MINUTE (03/23 1600) SpO2: 96 % (03/23 1600) O2 Delivery: Nasal Cannula (04/28 1600) Weight: 111.1 kg (244 lb 14.9 [...] Pertinent radiology reviewed. Bravo Anaya MD Pager [phone] * Patti Singh RN - 03/23/2018 3:20 [...] Afib ' Acute Hypoxic Respiratory Failure- extubated 03/22. Pulmonary edema - continues on 2 Lpm [...] on therapy due to hypotension DM - FACILITY OPERATIONS MANAGER levemir 18 units BID, metformin and Januvia > Hold oral hypoglycemics > Continue insulin gtt for now > MDCF > A1c (03/19/18): 6.6% HLD - FACILITY OPERATIONS MANAGER simvastatin > Continue > Lipid profile (03/19/18): total cholesterol 66, trigs 35, HDL 36, LDL 23 Fluids, Electrolytes, Nutrition: no IVF, replace prn, swallow eval pending Prophylaxis:NO heparin products ,start on Eliquis Code: full Lines:arterial line, OG tube, Mc catheter, CVC Disposition: Continue admission to CICU Patient seen and discussed with Dr. Jones. ESTELA Marroquin PGY-2 Internal Medicine 5407 Subjective: Farheen Gutierres is a 68 y.o. [...] Units/ sodium bicarbonate 650 mg (#) PRN (Web Site Developer from Rx) Associated attestation - Alem Jones [...] fully evaluated, and discussed patient with the [facility] ICU team. The patient is critically [...] 15 mL 15 mL Swish & Spit BID() digoxin (LANOXIN) injection 250 mcg 250 mcg [...] Units/ sodium bicarbonate 650 mg(# ) PRN (Web Site Developer from Rx) Vital Signs: Last Filed Vital [...] (not recorded) Vitals: 03/21/18 0506 03/21/18 1124 03/22/180 Weight: 115 kg (253 lb 8.5 oz) 115 kg (253 lb 8.5 oz) 113.3 kg (249 lb 12.5 oz) Critical Care Vitals: Vigileo SVI (Calculated): 40 (03/22/180) SVRI (Calculated): (!) 918 (04/27/18 0500) ICP Monitoring: PA Catheter: PA Catheter Only PA Pressure: (!) 64/41 (03/22/18 1104) PA Mean (mm Hg): (!) 49 mm Hg (03/22/18 1104) CO: (!) 10.06 (03/22/18 0500) CO Method: Indirect Janay Calculation (03/22/18 0500) CI: (!) 4.53 (03/22/18 0500) SVR (Calculated): (!) 443 (03/22/18 0500) SVRI (Calculated): (!) 918 (03/22/18 0500) SV (Calculated): 90 (03/22/18 0500) SVI (Calculated): 40 (03/22/18 0500) Hemodynamics/Oxycalcs: Hemodynamics/Oxycalcs Device Type: Standard PA Catheter (03/22/180) PA Pressure: (!) 64/41 (03/22/18 1104) PA [...] Pertinent radiology reviewed. Bravo Anaya MD Pager [phone] * Iris Lyn, PHARMD - 03/22/2018 10:18 [...] Current Oral Intake: NPO Estimated Calorie Needs: 3143-2086 (25-28 kcals/kg per DBW 69.9kg) Estimated Protein [...] Not met;Ongoing Angelica Davis MS, RD, LD, [facility] Pager [phone] * Shivani Bustos MBBS - 03/22/2018 4:00 [...] on therapy due to hypotension DM - FACILITY OPERATIONS MANAGER levemir 18 units BID, metformin and Januvia > Hold oral hypoglycemics > Continue insulin gtt for now > MDCF > A1c (03/19/18): 6.6% HLD - FACILITY OPERATIONS MANAGER simvastatin > Continue > Lipid profile (03/19/18): total cholesterol 66, trigs 35, HDL 36, LDL 23 Fluids, Electrolytes, Nutrition: no IVF, replace prn, swallow eval pending Prophylaxis: heparin gtt Code: full Lines:arterial line, OG tube, Mc catheter, CVC Disposition: Continue admission to CICU Patient seen and discussed with Dr. Jones. ESTELA Marroquin PGY-2 Internal Medicine 5400 Subjective: Farheen Gutierres is a 68 y.o. [...] 20,000 Units/ sodium bicarbonate 650 mg(#) PRN (Web Site Developer from Rx) Associated attestation - Alem Jones [...] Assessment 1. Biventricular failure, etiology unclear, outside [facility] normal, endomyocardial biopsy negative for myocarditis, [...] hemodynamics and examining the patient. * Laura Rascon RT - 03/22/2018 2:32 PM CDT Formatting [...] Cell Crisis OR Anemia (<10) OR Acute CO (02 & oxim) Patient Assessment * Respiratory [...] Date: 03/22/2018 Fall AC=Airway clearance AM=Aerosolized medication BA=Oxford aerosol DB&C=Deep breathe & cough FEV1=Forced expiratory volume in first second) IC=Inspiratory capacity LE=Lung expansion MDI=Metered dose inhaler Neb=Nebulizer O2=Oxygen Oxim=Oximetry PEFR=Peak expiratory flow rate INSTALLATION AND SERVICE TECHNICIAN=Rapid Response Team * Prisca Zapien, RN - 03/22/2018 2:[address] [...] Continue Treatment Daily. Prognosis: Good NOMS Dysphagia Ratin6-Okbymvrrbv-Lbugcs Dysphagia -Not able to swallow safely by mouth for nutrition/hydration but may take some consistency w/ consistent max cues in therapy only. Alternative method of feeding required. Results Reported to Physician: Yes Objective* Relevant Med Background: Farheen Gutierres is a 68 y.o. female who we are asked to see for evaluation of heart failure. Patient was transferred from [facility] for refractory heart failure. Patient is currently [...] ongoing swallow evalution provided min cues. Therapist:Micki Cates/LARRY-PANEL COVERER (Pager [phone]; Voalte: [phone]) Date:03/22/2018 * Prisca Zapien RN - 03/22/2018 [...] 918 Advanced Hemodynamic Monitoring PA Pressure (!) PA Mean (mm Hg) (!) 34 mm [...] fully evaluated, and discussed patient with the [facility] ICU team. The patient is critically [...] (PROTONIX) injection 40 mg 40 mg Intravenous BID(-21) PARoxetine (PAXIL) tablet 40 mg 40 mg [...] Units/ sodium bicarbonate 650 mg(# ) PRN (Web Site Developer from Rx) Vital Signs: Last Filed Vital Signs: 24 Hour Range BP: 114/58 (03/21 1124) ABP: 97/49 (03/21 1700) Temp: 36.6 C (97.9 F) (03/21 1700) Pulse: 141 (03/21 1700) Respirations: 15 PER MINUTE (03/21 1700) SpO2: 94 % (03/21 170) O2 Delivery: Endotracheal Tube (Oral) (03/21 1500) [...] 1520) SVRI (Calculated): (!) 1023 (03/21/18 152) ICP Monitoring: PA Catheter: PA Catheter Only PA Pressure: (!) 49/ (03/21/181699) PA Mean (mm Hg): (!) 34 mm Hg (03/21/18 1700) CO: (!) 8.9 (03/21/18 152) CO Method: Indirect Janay Calculation (03/21/181519) CI: 3.99 (03/21/18 1520) SVR (Calculated): (!) 470 (03/21/18 1520) SVRI (Calculated): (!) 1023 (03/21/18 1520) SV (Calculated): 90 (03/21/18 1520) SVI (Calculated): 40 (03/21/18 1520) Hemodynamics/Oxycalcs: Hemodynamics/Oxycalcs Device Type: Standard PA Catheter (03/21/181519) PA Pressure: (!) 49/27 (03/21/181699) PA Mean (mm Hg): (!) 34 [...] Pertinent radiology reviewed. Bravo Anaya MD Pager [phone] * Prisca Zapien RN - 03/21/2018 5:39 [...] Jessika Cruz - 03/21/2018 1:45 PM CDT [employer] Note: Admit Date: 03/18/2018 Reason for visit: Follow up spiritual support for family Synopsis of visit: [employer] talked with patient's , Niharika, in the hallway. seemed relieved as he talked about the progress patient is making. He also said that he has a cousin (Laura) who lives in the [place] who is helpful and supportive; she is also a nurse. seemed both in good spirits and hopeful about patient's situation. [employer] listened actively, offering support and words of encouragement. [employer] shared in 's positive news regarding patient's situation. [employer] will continue to follow for spiritual and emotional support. The spiritual care team is available as needed, 18/06, through the [place] switchboard ([phone]). For immediate response, please page [phone]. For a response within 24 hours, please submit an order in O2 for a broomcorn scraper consult or call the administrative voicemail at [phone]. Please page or use consult order if family requests visit. Date/Time: User: Pager: [phone] 03/22/2018 7:49 AM Jessika Cruz * Prisca [...] on therapy due to hypotension DM - FACILITY OPERATIONS MANAGER levemir 18 units BID, metformin and Januvia > Hold oral hypoglycemics > Continue insulin gtt for now > MDCF > A1c (03/19/18): 6.6% HLD - FACILITY OPERATIONS MANAGER simvastatin > Continue > Lipid profile (03/19/18): total cholesterol 66, trigs 35, HDL 36, LDL 23 Fluids, Electrolytes, Nutrition: no IVF, replace prn, tube feeds Prophylaxis: prophylactic heparin Code: full Lines: PA catheter, arterial line, OG tube, ETT, Mc catheter, CVC Disposition: Continue admission to CICU Patient seen and discussed with Dr. Jones. Wayne Rivera M.D. Internal Medicine/Psychiatry PGY-1 Pager: [phone] Subjective: Farheen Gutierres is a 68 y.o. [...] 1355 03/19/18 2131 03/20/18 0400 03/20/18 1205 03/20/18 2010 03/21/18 0410 NA 124* 125* 124* 123* 124* [...] 20,000 Units/ sodium bicarbonate 650 mg(#) PRN (Web Site Developer from Rx) Associated attestation - Alem Jones [...] volume excess. Biopsy negative for myocarditis. Outside [facility] normal. Will continue supportive measures 2. [...] fully evaluated, and discussed patient with the [facility] ICU team. The patient is critically [...] mcg 125 mcg Per NG tube QDAY(07) pantoprazole (PROTONIX) injection 40 mg 40 mg Intravenous BID(11-21) PARoxetine (PAXIL) tablet 40 mg 40 mg [...] mL IV drip (std conc) Stopped (03/20/18 005) PRN and Respiratory Meds:acetaminophen Q4H PRN, aluminum/magnesium hydroxide Q4H PRN, diphenhydrAMINE Q4H PRN OR diphenhydrAMINE Q4H PRN, ondansetron ( ZOFRAN) IV Q6H PRN, pancrelipase 20,000 Units/ sodium bicarbonate 650 mg(#) PRN (Web Site Developer from Rx) Vital Signs: Last Filed Vital [...] 137 (03/20/182009) POC Glucose (Download): (!) 128 (04/25/18 2106) Radiology and Other Diagnostic Procedures Review: Pertinent radiology reviewed. Bravo Anaya MD Pager [phone] * Jaycee Mcnair RN - 03/20/2018 4:30 [...] on therapy due to hypotension DM - FACILITY OPERATIONS MANAGER levemir 18 units BID, metformin and Jaanuvia > Hold oral hypoglycemics, switch levemir to Lantus > MDCF > A1c ordered > start insulin gtt due to steroid induced hyperglycemia HLD - FACILITY OPERATIONS MANAGER simva > Continue > Lipid profile Fluids, Electrolytes, Nutrition: no IVF, replace prn, tube feeds Prophylaxis: heparin gtt Code: full Lines: PA catheter, arterial line, OG tube, ETT, mc catheter, CVC Disposition: CICU Pt was seen and discussed with ESTELA Thomas PGY-2 Internal Medicine 5467 Subjective: Farheen Gutierres is a 68 y.o. female.intubated and sedated this AM Objective: Vital Signs: Last Filed Vital Signs: 24 Hour Range BP: 112/50 (03/19 900) Temp: 36 C (96.8 F) (03/20 700) Pulse: 76 (03/20 816) Respirations: 15 PER MINUTE (03/20 816) SpO2: 95 % (03/20 816) O2 Delivery: Endotracheal Tube (Oral) (03/20 0400) SpO2 Pulse: 129 (03/20 07) Height: 167.6 cm (66") (03/19 900) BP: (112)/(50) ABP: (80)/(49) Temp: [35.8 C (96.4 F)-37.3 C (99.1 F)] Pulse: [50-82] Respirations: [0 PER MINUTE-16 PER MINUTE] SpO2: [92 %-100 %] O2 Delivery: Endotracheal Tube (Oral) Intake/Output Summary (Last 24 hours) at 03/20/18 08 Last data filed at 04/25/18 0800 Gross per 24 hour Intake 2703.05 [...] 20,000 Units/ sodium bicarbonate 650 mg(#) PRN (Web Site Developer from Rx), polyethylene glycol 3350 BID PRN [...] 2.4 units/hr. Continue to monitor. * Elieser Valdivia PHARMD - 03/19/2018 8:32 PM CDT Formatting [...] needed. Elieser Valdivia, PHARMD 03/19/2018 * Prisca Zapien RN - 03/19/2018 6:[address] Anaya updated on pt status. Order to hold tube feed starting this evening on current IV supports. Will re-assess in the morning. Heparin infusion to re-start at last rate adjustment. Will check PTT in 6 hours. * Prisca Zapien RN - 03/19/2018 6:07 PM CDT 1705 - [...] fully evaluated, and discussed patient with the [facility] ICU team. The patient is critically [...] 15 mL 15 mL Swish & Spit BID() insulin aspart U-100 (NOVOLOG FLEXPEN) injection PEN [...] 20,000 Units/ sodium bicarbonate 650 mg(#) PRN (Web Site Developer from Rx), polyethylene glycol 3350 BID PRN Vital Signs: Last Filed Vital Signs: 24 Hour Range BP: 112/50 (03/19 0900) ABP: 108/55 (03/19 0139) Temp: 37.3 C [...] Pertinent radiology reviewed. Bravo Anaya MD Pager [phone] * Shivani Bustos MBBS - 03/19/2018 5:36 [...] on therapy due to hypotension DM - FACILITY OPERATIONS MANAGER levemir 18 units BID, metformin and Jaanuvia > Hold oral hypoglycemics, switch levemir to Lantus > MDCF > A1c ordered > start insulin gtt due to steroid induced hyperglycemia HLD - FACILITY OPERATIONS MANAGER simva > Continue > Lipid profile Fluids, Electrolytes, Nutrition: no IVF, replace prn, tube feeds Prophylaxis: heparin gtt Code: full Lines: PA catheter, arterial line, OG tube, ETT, mc catheter, CVC Disposition: CICU Pt was seen and discussed with ESTELA Thomas PGY-2 Internal Medicine 5483 Subjective: Farheen Gutierres is a 68 y.o. [...] Intake/Output Summary (Last 24 hours) at 03/19/18 6556 Last data filed at 03/19/18 1500 Gross [...] 20,000 Units/ sodium bicarbonate 650 mg(#) PRN (Web Site Developer from Rx), polyethylene glycol 3350 BID PRN * Alem Jones MD - 03/19/2018 5:26 PM CDT Update Patient to rn cardiac cath today for RHC, endomyocardial biopsy with Dr. [...] consider ECMO as backup * Prisca Zapien, TREVOR - 03/19/2018 4:59 PM CDT Spoke with [...] Jessika Cruz - 03/19/2018 1:57 PM CDT [employer] Note: Admit Date: 03/18/2018 Reason for Visit: [employer] referral (1). [employer] met with patient's , Niharika. Patient is on a vent and balloon pump, not able to participate in visit. Farheen/Jew: said that neither he nor patient have a scientology affiliation and that its not an important part of their life. Source of Purpose/Meaning: , who is an senior linux systems engineer, said that he and patient met in the when they were both serving in the [employer]. 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 also talked about the importance of grandchildren in their lives. said that his son from a previous relationship about 4 years ago, when his own son was about 9 years old. said that patient was able to quit work and help with this grandson. Their kcijptra-ad-phm has remarried and has had another child; [...] led to patient's hospitalization and transfer to [facility]. seems to be focusing on details that [...] helpful. Support System: Patient and live in [place], [place]. said he does not have friends or relatives in the area to stay with. He does have a friend who works in the area who will be stopping by to visit later today. said he is updating people via text message. Interventions/Plan: [employer] listened empathically, offering support and attempting to normalize 's feelings related to uncertainty and helplessness. [employer] explored sources of meaning and coping for patient and . [employer] guided life and health review and affirmed the love patient and share. [employer] also encouraged to be attentive to his own self care. [employer] will continue to follow for spiritual and [...] MAP 65. Increase lasix to 20 mg/hr. [employer] requested orders for Nystatin for excoriation and [...] on diltiazem gtt. She was transferred to [facility] for higher level of care. At [facility] amiodarone was added to Diltiazem for [...] and she was taken to the cardiac rn cardiac cath for left heart catheterization. She was found [...] heart failure therapies she was transferred to [facility] by helicopter. Physical Exam: General: Intubated/sedated. [...] failure Marco Antonio Johnson MD CV Fellow #[id number] * Eva Gao RN - 03/19/2018 2:49 [...] 10%. Unknown baseline Major Complications or Comorbidities (SENIOR CARE): acute respiratory failure and cardiogenic shock NYHA functional class None, ACC Stage D (refractory HF requiring specialized interventions). She presents with signs of hypovolemia with left ventricular failure with signs of low flow state. Admission BNP: 350 Prior to admission diuretic regimen: 5mg/hr lasix gtt (OSH), FACILITY OPERATIONS MANAGER HCTZ 50mg Goal Output: 1-2L/24hr Intake/Output: Entire [...] Yes Strict I/O. Standing scale daily weight. Manager Cafe consultation to discuss sodium restricted diet recommended. Pharmacy/Medication counseling recommended. Case Management/Social Work recommended. Co-morbidities: No consult recommended at this time On CHF service Physical Therapy consult recommended. ordered Patient Adherence and self-management: No additional plans or changes. Follow Up: appointment with a member of the HF team or PCP within 7 calendar days of discharge. - [facility] on 03/18 with normal coronaries, aortic pressure [...] on therapy due to hypotension DM - FACILITY OPERATIONS MANAGER levemir 18 units BID, metformin and Jaanuvia > Hold oral hypoglycemics, switch levemir to Lantus > MDCF > A1c ordered HLD - FACILITY OPERATIONS MANAGER simva > Continue > Lipid profile Fluids, Electrolytes, Nutrition: Replacing as needed Prophylaxis: Heparin therapeutic, SCDs Code: Full code (default) Disposition: Admit to CCU Patient stated goal: None, unknown Patient discussed with surgical dressing maker fellow. Shar Yousif Internal Medicine / PGY-2 Pager [phone] Chief Complaint: Evaluation and recommendations re: heart failure History of Present Illness: Farheen Gutierres is a 68 y.o. female who we are asked to see for evaluation of heart failure. Patient was transferred from [facility] for refractory heart failure. Patient is currently intubated, hence the history is relied from records outside and ED/EMS personal. Patient was initially seen at OSH and was then subsequently transferred to [facility] for management of her Atrial Fibrillation with [...] medications and hence she was taken to [facility]. An IABP was inserted. Patient was [...] 68-year-old female transferred from outside hospital, [facility] in [place], [place]. Her is in the room, history obtained from her . Patient was in "normal" condition as recently as 72 hours ago. She had increasing abdominal fullness, distention, bloating with lack of bowel movement for 3-4 days and decreased urine output. This prompted initial evaluation at local hospital, [facility] (patient lives in [facility]). Upon arrival she was found to be in atrial fibrillation with RVR, she was promptly transferred to the [facility] in [place]. She was started on amiodarone and diltiazem, [...] CARDIAC CATH REPORT [facility] CARDIAC CATHETERIZATION REPORT Page 2 FARHEEN Stovall : 1950 #: [id number] MR #/Billing ID #: [id number] / [id number] DATE: 03/19/2018 LAW SECRETARY: Ila Gray MD DICTATING PROVIDER: Kristian Caputo MD REFERRING PHYSICIAN: INTERVENTIONAL ARCHITECTURAL ENGINEER: Kristian Caputo MD PROCEDURES PERFORMED: 1. Left IJ ultrasound-guided venous access. 2. Left IJ central line placement. 3. Right IJ 8-Tongan Fast-Cath venous access. 4. Right heart catheterization. [...] PROCEDURE: The patient was brought into the rn cardiac cath intubated and deeply sedated. We then noticed [...] right IJ central venous catheter for an 8-Tongan Fast-Cath. Following this, we introduced a 7.5-Tongan Almont-Mikel catheter which was serially advanced into the right atrium, right ventricle, pulmonary artery, and subsequently into the wedge position for assessment of saturations, measurement of pressures, and calculation of cardiac outputs and indices by thermodilution and Jaany methods respectively. DETAILS OF RIGHT HEART CATHETERIZATION: [...] THE ENDOMYOCARDIAL BIOPSY: We then introduced a 7-Tongan bioptome through the 8-Tongan venous sheath under fluoroscopic guidance in the AP and ENGLISH projections. We obtained a total of 3 [...] and subsequently transferred her out of the rn cardiac cath. Dr. Gray was scrubbed and performed fall portions of the procedure, and supervised the rest of it as well. The Almont was left at 54 cm at the level of the hub. She will be transported to the ICU for further inotropic and diuretic management. FINAL IMPRESSION: 1. Severely reduced cardiac index with very high filling pressures. 2. Moderate pulmonary hypertension, as outlined above. 3. Continued inotropic and diuretic support per the Heart Failure Team in the ICU. Ila Gray MD PCG/MedQ /[id number] cc: in this encounter Consult Notes * Tamy Cota MD - 03/30/2018 10:15 AM CDT Associated Order(s): CONSULT REHABILITATION MEDICINE PHYSICIAN Formatting of this note may be different from the original. Physical Medicine & Rehabilitation Consult Note Date of Service: 03/30/2018 Farheen Gutierres is a 68 y.o. female. : 1950 Primary Insurance: Spotted Secondary Insurance: MEDICARE Tertiary Insurance: Financial Class: [facility] Date of Admission: 03/18/2018 Referring Physician: Philippe Aguero MD Reason for Consult: evaluate for Post-Acute Rehab/Placement Precautions: Fall, Weight bearing Precautions: Progressive mobility Active Problems Acute decompensated heart failure Takotsubos Afif w/ RVR s/p ICD Impaired ADLS Thrombocytopenia Assessment & Plan Farheen Gutierres is a 68 y.o. female admitted to [facility] on 03/18/2018 with the following issues: debility [...] acute inpatient rehabilitation program. Recommendations: Cognition: Recommend PANEL COVERER for cog screen. Bowel: Last BM documented [...] discharge. Mejia Barrientos MD Rehab Consult Pager: [phone] ATTESTATION I personally performed the fall portions [...] insulin, HTN/HLD, Hypothyroidism who was admitted to [facility] 03/19 for management of cardiogenic shock and acute decompensated Heart failure secondary to Takotsubos. [facility] 03/18 w / normal coronaries. Echo 03/18 [...] 03/23/18 Prior Level of Function Lives in [place], [place] w/ her in a house w/ [...] sat independently and able to feed herself. PANEL COVERER COGNITIVE EVALUATION SUMMARY PRAGMATICS: BEHAVIOR: AUDITORY COMPREHENSION: [...] on 03/26/2018 12:15 PM. * Clare Mccarthy, THREADING MACHINE FEEDER AUTOMATIC-ASSISTANT PROFESSOR SCULPTURE - 03/25/2018 4:47 PM CDT Associated Order(s): [...] no known history per the patient - [id number] Score 5, on Eliquis 5 mg bid [...] further recommendations post DCCV and diuresis. Clare Mccarthy, BERNARDINO-C (pgr [phone]) Heart Rhythm Management (pgr [phone]) Medicare attestation History of Present Illness: Farheen [...] rates in the 30's prompting transfer to [facility]. She was found to have severe LV [...] Units/ sodium bicarbonate 650 mg (#) PRN (Web Site Developer from Rx) Allergies: Allergies Allergen Reactions Latex [...] the 100's to 120's Clare Mccarthy NP-C [phone] Associated attestation - Bobby Durán MD - [...] ICD. Her QRS is narrow and therefore MACHINE CLOTH TRIMMER-D is not indicated but possible future upgrade [...] and pericarditis Clin Microbiol Rev v.16(2); 2002 [id number] J Clin Microbiol. 2010;49(5):2072-3 Urine culture positive [...] cardiology on 03/18/18 in transfer for from [facility] in [place], [place] for cardiogenic shock which occurred after [...] sought evaluation at her local hospital in [place], [place]. There she was noted to be in atrial fibrillation with RVR and was therefore promptly transferred to [facility] in [place], [place]. According to her while at [facility] the patient deteriorated abruptly with a [...] and a normal coronary angiogram (done at [facility]). At the time of ID consultation on 03/23/18, the most recent echocardiogram was on 03/21/18. This was a technically difficult study but showed severely reduced LV systolic function with an estimated EF of 20% and severe, global hypokinesis. The right ventricle was moderately enlarged and also showed decreased systolic function. There was trace mitral valve regurgitation and ihnt-rc-smycmids tricuspid valve regurgitation. Neither the AV nor [...] back a cold from a trip to [place] and on about 03/13 the patient told [...] 20,000 Units/ sodium bicarbonate 650 mg(#) PRN (Web Site Developer from Rx) Physical Examination Vital Signs: Last Vital Signs: 24 Hour Range BP: 116/78 (03/25 1000) Temp: 36.6 C (97.8 F) (03/25 800) Pulse: 139 (03/25 1000) Respirations: 15 PER MINUTE (03/25 1000) SpO2: 96 % (03/25 1000) O2 Delivery: Nasal Cannula (04/30 0800) SpO2 Pulse: 138 (03/25 1000) BP: [...] images viewed. Impression: Mejia Rivas MD Pager [phone] Infectious Diseases Faculty Complexity of medical decision-making [...] diarrhea and heart failure treatment o * Meija Rivas MD - 03/23/2018 1:02 PM CDT [...] and pericarditis Clin Microbiol Rev v.16(2); 2002 [id number] J Clin Microbiol. 2010;49(5):2072-3 RYAN (cardiorenal syndrome) [...] cardiology on 03/18/18 in transfer for from [place], [place] for cardiogenic shock which occurred after [...] sought evaluation at her local hospital in [place], [place]. There she was noted to be in atrial fibrillation with RVR and was therefore promptly transferred to [facility] in [place], [place]. According to her while at [facility] the patient deteriorated abruptly with a [...] and a normal coronary angiogram (done at [facility]). At the time of ID consultation on 03/23/18, the most recent echocardiogram was on 03/21/18. This was a technically difficult study but showed severely reduced LV systolic function with an estimated EF of 20% and severe, global hypokinesis. The right ventricle was moderately enlarged and also showed decreased systolic function. There was trace mitral valve regurgitation and [id number] tricuspid valve regurgitation. Neither the AV nor [...] back a cold from a trip to [place] and on about 03/13 the patient told [...] when they were both serving in the [employer]. She's been to [place], [facility] and many other places. Social History Substance [...] 20,000 Units/ sodium bicarbonate 650 mg(#) PRN (Web Site Developer from Rx) Physical Examination Vital Signs: Last [...] images viewed. Impression: Mejia Rivas MD Pager [phone] Infectious Diseases Faculty Complexity of medical decision-making is high because of: ? RISK o immunosuppression placing the patient at increased risk of infection or difficulty in clearing infection (diabetes) o antimicrobial complications, risk of and need for assessment/monitoring for ( disturbances of blood counts, renal or liver function; rash; diarrhea (non-C difficile related or C difficile-related); neuropathy/BUSINESS ADMINISTRATOR effects; o central line complications, risk of [...] Current Oral Intake: NPO Estimated Calorie Needs: [id number] (11-14 kcals/kg wt 115.7kg) Estimated Protein Needs: [...] 72 Hours Breanna Puckett MA, RD, LD, [facility] *[id number] in this encounter Miscellaneous Notes * Patient Education - Bob Mcgee, PHARMD - 04/03/2018 10:09 AM CDT On 04/03/2018, Farheen Brandon Taichano was counseled and provided with a list [...] days Todays Date: 04/03/2018 Plan Discharge to [facility] around 9:30am/10am via family transport. Interventions ? Support Support: Pt/Family Updates re:POC or DC Plan, Patient Education ? Info or Referral Information or Referral to Community Resources: No Needs Identified ? Discharge Planning Discharge Planning: Inpatient Rehabilitation HF team confirmed patient is medically stable to discharge this morning to [facility]. MARYANN notified bedside RN of anticipated discharge [...] and is able to safely transport to [facility] without oxygen. MARYANN provided RN report number, . MARYANN completed transfer packet and placed it outside patient's room. HF resident completed interfacility discharge orders. MARYANN faxed signed discharge orders to [facility], Attn: February, fax: [phone]. MARYANN requested HF resident call physician report to [facility] physician, Dr. Tejinder Christianson, and provided cell # [phone]. MARYANN met with patient and at bedside to review the above. Both in agreement with discharge plan; just awaiting nursing help to disconnect from monitor, etc. Both remain comfortable with providing discharge to facility. No other needs identified. MARYANN left voicemail message for February ([phone]) to confirm discharge; noted anticipated time for patient/ leaving hospital is around 10am. Per request of HF attending, MARYANN encouraged [facility] contact HF Clinic with any concerns/signficant changes while patient is at facility as patient will follow with HF Clinic. SW will remain available. UPDATE 10:15am: MARYANN received a return call from February at [facility]. February confirmed discharge paperwork was received via fax; requested HF resident also call report to their human resources hr representative, Dr. Ramesh (cell [phone]) . MARYANN paged HF resident with request. [...] Psych discharges only) ? Discharge Disposition [facility]) - Inpatient Rehab [address] [place] [address] Facility ph: [phone] Liaison: February, cell [phone] or [phone] Kyleihg Rojas [facility] [place] [facility] Failure Bag Worker Phone: [phone] Pager: [phone] * Patient Education - Autumn Akbar PHARMD [...] any further questions. Autumn Akbar PHARMD Pgr: [phone] * Case Mgmt DC Plan - Kyleigh Rojas - 04/02/2018 11:05 AM CDT Case Management Progress Note NAME:Farheen Gutierres :[birth year] AGE: 68 y.o. ADMISSION DATE: 03/18/2018 DAYS ADMITTED: LOS: 15 days Todays Date: 04/02/2018 Plan Anticipate discharge to [facility]) inpatient rehab once medically stable, likely tomorrow. Interventions ? Support Support: Pt/Family Updates re:POC or DC Plan, Patient Education ? Info or Referral Information or Referral to Community Resources: No Needs Identified ? Discharge Planning Discharge Planning: Inpatient Rehabilitation MARYANN spoke with liaison at [facility], February (cell ). February did not receive clinical updates SW faxed yesterday late afternoon. February confirmed she will review updates once received and submit to insurance for authorization. MARYANN faxed clinical updates to February, fax: . MARYANN discussed patient's plan of care/discharge plans with NCM and HF team in huddle. HF team anticipates patient will be medically stable to discharge to [facility] tomorrow pending insurance authorization. Per EMR, patient no longer requires oxygen at rest or with activity. MARYANN received call from February stating insurance approved inpatient rehab stay. Per February, [facility] IPR prefers hospital discharge/IPR admit early enough in the day to allow for time for patient to participate in 3 hours of therapy upon arrival. February in agreement with tentative discharge time of 9:30am/10am. February confirmed facility does not provide transport at time of discharge or for important follow-up outpatient appointments. MARYANN to reinforce no 'pit stops' between [facility] and [facility] if family provides transport. *Per February, RN report and physician report will need to be called upon discharge : RN report # : [phone] Physician report # : Dr. Tejinder Christianson, [...] family to provide transportation. MARYANN explained [facility] does not provide transportation at discharge or [...] transfer packet and fax discharge orders (fax: [phone]) once discharge is confirmed. ? Medication Needs [...] Psych discharges only) ? Discharge Disposition [facility] - Inpatient Rehab [address] [place] [address] Facility ph: [phone] Liaison: February, cell [phone] or [phone] Kyleigh Rojas [facility] [place] Heart Failure Bag Worker Phone: [phone] Pager: [phone] * Case Mgmt DC Plan - Kyleigh Rojas - 04/01/2018 3:44 PM CDT Formatting of this note may be different from the original. Case Management Progress Note NAME:Farheen Gutierres :[birth year] AGE: 68 y.o. ADMISSION DATE: 03/18/2018 DAYS ADMITTED: LOS: 14 days Todays Date: 04/01/2018 Plan Discharge planning is ongoing. Anticipate discharge to [facility] pending acceptance and insurance approval. Interventions [...] huddle. MARYANN reiterated patient/family's preferred placement, [facility] (and swing bed), are unable to accept patient on IV inotrope. HF attending voiced plan to discontinue IV dobutamine today and monitor patient to determine if she tolerates discontinuation. MARYANN faxed updated clinicals to [facility], Attn: February. . MARYANN left voicemail message for [facility] liaison, February (cell [phone]) , notifying of incoming fax with clinical [...] been selected for the patient. Kyleigh Rojas, [facility]patient Heart Failure Bag Worker Phone: [phone] Pager: [phone] * Care Plan - Arthur Cruz RN [...] to IPR vs Swing Bed at [facility]. working to wean IV dobutamine at this time. Interventions ? Support Support: Pt/Family Updates re:POC or DC Plan, Patient Education ? Info or Referral ? Discharge Planning Discharge Planning: Inpatient Rehabilitation Rehab consult placed for assistance with DC planning. ? Medication Needs Medication Needs: Medication Assistance Resources in the Community (Copay card ) Covering [facility] reviewed chart and discussed POC with primary SW/team. Plans to initiate Eliquis at [facility]. [facility] provided 30-day free and $10/mo [...] has been selected for the patient. 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 Reports her previous water pill was hydrochlorothiazide. Patient denies missing doses of medication, however may take her AM medication 2 -3 hours late on some days. Patient was not weighing herself FACILITY OPERATIONS MANAGER or recording weights. Barriers to medication adherence: [...] patient would like discharge medications sent to: [facility] ( [place], [place]) Recommended pharmacy f/u: HF medication education, [...] any further questions. Autumn Akbar, PHARMD Pgr: [phone] * Case Mgmt DC Plan - Kyleigh Rojas - 03/29/2018 10:17 AM CDT Case Management Progress Note NAME:Farheen Gutierres :[birth year] AGE: 68 y.o. ADMISSION DATE: 03/18/2018 DAYS ADMITTED: LOS: 11 days Todays Date: 03/29/2018 Plan Anticipate discharge to [facility] inpatient rehab pending insurance approval and patient's ability to wean off IV dobutamine. Interventions ? Support Support: Pt/Family Updates re:POC or DC Plan, Patient Education ? Info or Referral ? Discharge Planning Discharge Planning: Inpatient Rehabilitation Rounding RN notified SW of patient/family request to discharge to [facility] inpatient rehab. SW contacted [facility] liaison, February (cell: [phone]), to discuss patient. February will confirm with facility regarding ability to manage IV dobutamine if patient is unable to tolerate weaning off medication. MARYANN sent referral via [employer]; faxed to [phone]. MARYANN discussed patient's plan of care and discharge plans with NCM and HF team in [facility]. HF attending is hopeful patient [...] inotrope at discharge as facilities, including [facility], are unable to accept patients on IV intropes. Patient and Niharika voiced understanding. Patient and Niharika are hopeful patient will be able to tolerate being off IV inotrope and be a candidate for IPR. Patient confirmed preference for [facility]; noted she is motivated to participate in 3 hours of therapy/day. Patient and Niharika agreeable to pursuing swing bed at [facility] if not a candidate for IPR. Patient agreeable to continuing to speak with [facility] regarding IPR vs swing bed placement. MARYANN called Paula at [facility] (cell: [phone]) to relay the above. February confirmed she [...] discharges only) ? Discharge Disposition Kyleigh Rojas [facility] Inpatient Heart Failure Bag Worker Phone: [phone] Pager: [phone] * Procedures (Immed Post or Bedside) - [...] Pt states she and her live in [place], [place]. 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 Pt endorses local support from friends, but not family. FACILITY OPERATIONS MANAGER, pt endorses no mobility concerns outside of fatigue and SOA. Owns no DME and denies h/o placements or HH. NCM briefly talked about sometimes pts consider placement for rehabilitation following long hospitalization. Pt states she has not thought about this or talked with her about this. NCM will continue to follow and discuss with SW. Patient Address/Phone [address] [phone] (home) [phone] (work) Emergency Contact Extended Emergency Contact Information Primary Emergency Contact: Niharika Gutierres Address: [address] [place] [address] [facility] Mobile Relation: Spouse Healthcare Directive [...] anticipated on discharge: Yes (No assistance needed FACILITY OPERATIONS MANAGER - Anticipate need for assistance at discharge) Who provides assistance or could if needed?: / Friends (no local family) Are they in good health?: Yes Can support system provide 24/7 care if needed?: Maybe ( works 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 Level of Function Prior level of function: Independent (Pt endorses no mobility concerns FACILITY OPERATIONS MANAGER - ambulated w/o device. Did endorse some fatigue/SOA FACILITY OPERATIONS MANAGER. Pt drives, etc.) ? Cognitive Abilities Cognitive Abilities: Alert and Oriented, Engages in problem solving and planning Financial Resources ? Coverage Primary Insurance: Commercial insurance (BCBS of - through 's employer ) Secondary Insurance: Medicare (A) Additional Coverage: RX ? 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 Financial Assistance Needed? No Psychosocial Needs ? Mental Health Mental Health History: Yes (States she takes Rx prescribed by Dr. Cummings) Mental Health Symptoms: Feeling depressed ? Substance Use History Substance Use History Screen: Yes Comment: Denies tobacco, EOTH and illicit substances ? Other No Current/Previous Services ? PCP Brad Cummings, , ? Pharmacy [facility] #[id number] [facility] [place] [address] [facility] [address] ? Durable Medical Equipment Durable Medical Equipment [...] ? Outpatient Therapy PT: No OT: No PANEL COVERER: No ? Senior Care Facility/Detention SNF: No NH: No ? Inpatient Rehab IPR: No ? [facility] LTACH: No ? Acute Hospital Stay Acute Hospital Stay: Yes (Interfacility transfer) Mary Marin RN, BSN Integrated Nurse Director Music Ph: [phone] Pager: [phone] * Care Plan - Isa Hackett RN [...] value, and read back): PTT 139.7 Time MD/ASSISTANT PROFESSOR SCULPTURE Notified: N/A, per protocol MD/ASSISTANT PROFESSOR SCULPTURE Name: N/A MD/ASSISTANT PROFESSOR SCULPTURE Response/Orders Given: N/A Infusion paused for 90 minutes * Case Mgmt DC Adolph - Mary Marin RN - 03/22/2018 9:14 AM CDT Patient remains intubated in ICU on multiple gtts/pressors. Pt not appropriate for assessment. NCM will to continue to follow. Mary Marin RN, BSN Integrated Nurse Director Music Ph: [phone] Pager: [phone] * Care Plan - Karen Nichols RN [...] follow. Mary Marin RN, BSN Integrated Nurse Director Music Ph: [phone] Pager: [phone] * Critical Results - Patti Solano RN - 03/19/2018 8:16 PM CDT Critical result or procedure called (document test and value, and read back): + BC from L AC @ 0200 01/19, Gram + Cocci in both bottles (strep), 1 bottle (staph) . Time MD/ASSISTANT PROFESSOR SCULPTURE Notified: 2017 MD/ASSISTANT PROFESSOR SCULPTURE Name: Dr Primitivo Johnson MD/ASSISTANT PROFESSOR SCULPTURE Response/Orders Given: Will start abx. Continue to [...] patient. Mary Marin RN, BSN Integrated Nurse Director Music Ph: [phone] Pager: [phone] * Advanced Care Planning/Resuscitation Status - Shar YousifESTELA - 2017 1:47 AM CDT Advance Care [...] Shar Yousif Internal Medicine / PGY-2 Pager [phone] in this encounter Plan of Treatment Name [...] MG/DL Specimen Performing Laboratory MAIN LAB [address] [place] [address] * MAGNESIUM (04/03/2018 4:05 AM) Component Value Ref Range Magnesium 2.1 1.6 - 2.6 mg/dL Specimen Performing Laboratory Blood MAIN LAB [address] [place] [address] * BASIC METABOLIC PANEL (04/03/2018 4:05 AM) [...] Pharmacist for questions. Specimen Performing Laboratory Blood [facility] [address] [place] [address] * CBC (04/03/2018 4:05 AM) Component Value [...] - 11 FL Specimen Performing Laboratory Blood [facility] [address] [place] [address] * POC GLUCOSE (04/02/2018 9:21 PM) Component Value Ref Range Glucose, POC 332 (H) 70 - 100 MG/DL Specimen Performing Laboratory [facility] [address] [place] [address] * POC GLUCOSE (04/02/2018 6:17 PM) Component Value Ref Range Glucose, POC 171 (H) 70 - 100 MG/DL Specimen Performing Laboratory [facility] [address] [place] [address] * POC GLUCOSE (04/02/2018 5:09 PM) Component Value Ref Range Glucose, POC 238 (H) 70 - 100 MG/DL Specimen Performing Laboratory [facility] [address] [place] [address] * POC GLUCOSE (04/02/2018 1:23 PM) Component Value Ref Range Glucose, POC 245 (H) 70 - 100 MG/DL Specimen Performing Laboratory MAIN LAB [address] [place] [address] * MAGNESIUM (04/02/2018 1:18 PM) Component Value Ref Range Magnesium 1.9 1.6 - 2.6 mg/dL Specimen Performing Laboratory Blood MAIN LAB [address] [place] [address] * BASIC METABOLIC PANEL (04/02/2018 1:18 PM) [...] questions. Specimen Performing Laboratory Blood MAIN LAB [address] [place] [address] * CBC (04/02/2018 1:18 PM) Component Value [...] FL Specimen Performing Laboratory Blood MAIN LAB [address] [place] [address] * 2-D + DOPPLER ECHOCARDIOGRAM (04/02/2018 12:58 [...] Index 32.14 16 - 34 AV index ([place]) 0.62 E/A ratio 3.51 E/E' ratio 24.60 CV ECHO PV MOBILE SALES EXPERT Mitchell, [facility] LV mass 173.90 66 - 150 g RWT 0.29 <=0.42 TV rest pulmonary artery 42 mmHg pressure Right Heart Systolic TDI 0.140 m/s S' Cardiology Ultrasound Siemens [id number] Machine Left Ventricle Mass Index 83.61 44 [...] MG/DL Specimen Performing Laboratory MAIN LAB [address] [place] [address] * POC GLUCOSE (04/01/2018 9:18 PM) Component Value Ref Range Glucose, POC 117 (H) 70 - 100 MG/DL Specimen Performing Laboratory MAIN LAB [address] [place] [address] * POC GLUCOSE (04/01/2018 4:51 PM) Component Value Ref Range Glucose, POC 256 (H) 70 - 100 MG/DL Specimen Performing Laboratory MAIN LAB [address] [place] [address] * BASIC METABOLIC PANEL (04/01/2018 3:31 PM) [...] Specimen Performing Laboratory Blood MAIN LAB [address] [place] [address] * PV GROIN DUPLEX SCAN RT ONLY (04/01/2018 9:44 AM) Component Value Ref Range RIGHT POKER SUPERVISOR PROX SYS MAX 1.80 m/s RIGHT GROIN POKER SUPERVISOR SYS 1.80 m/s RIGHT GROIN SFA SYS [...] MG/DL Specimen Performing Laboratory MAIN LAB [address] [place] [address] * CBC (04/01/2018 7:49 AM) Component Value [...] FL Specimen Performing Laboratory Blood MAIN LAB [address] [place] [address] * MAGNESIUM (04/01/2018 3:57 AM) Component Value Ref Range Magnesium 2.2Comment: SLT HEMOLYSIS 1.6 - 2.6 mg/dL Specimen Performing Laboratory MAIN LAB [address] [place] [address] * BASIC METABOLIC PANEL (04/01/2018 3:57 AM) [...] for questions. Specimen Performing Laboratory MAIN LAB [address] [place] [address] * DIGOXIN LEVEL (04/01/2018 3:57 AM) Component Value Ref Range Digoxin 1.3 (H) 0.5 - 1.0 NG/ML Specimen Performing Laboratory Blood MAIN LAB [address] [place] [address] * POC GLUCOSE (03/31/2018 9:20 PM) Component Value Ref Range Glucose, POC 329 (H) 70 - 100 MG/DL Specimen Performing Laboratory MAIN LAB [address] [place] [address] * POC GLUCOSE (03/31/2018 6:39 PM) Component Value Ref Range Glucose, POC 250 (H) 70 - 100 MG/DL Specimen Performing Laboratory MAIN LAB [address] [place] [address] * MAGNESIUM (03/31/2018 5:50 PM) Component Value Ref Range Magnesium 2.1 1.6 - 2.6 mg/dL Specimen Performing Laboratory Blood [facility] [address] [place] [address] * BASIC METABOLIC PANEL (03/31/2018 5:50 PM) [...] Pharmacist for questions. Specimen Performing Laboratory Blood [facility] [address] [place] [address] * POC GLUCOSE (03/31/2018 3:09 PM) Component Value Ref Range Glucose, POC 170 (H) 70 - 100 MG/DL Specimen Performing Laboratory [facility] [address] [place] [address] * POC GLUCOSE (03/31/2018 8:59 AM) Component Value Ref Range Glucose, POC 162 (H) 70 - 100 MG/DL Specimen Performing Laboratory [facility] [address] [place] [address] * CBC (03/31/2018 4:18 AM) Component Value [...] 11 FL Specimen Performing Laboratory MAIN LAB [address] [place] [address] * MAGNESIUM (03/31/2018 4:18 AM) Component Value Ref Range Magnesium 1.9 1.6 - 2.6 mg/dL Specimen Performing Laboratory Blood [facility] [address] [place] [address] * BASIC METABOLIC PANEL (03/31/2018 4:18 AM) [...] questions. Specimen Performing Laboratory Blood MAIN LAB [address] [place] [address] * POC GLUCOSE (03/30/2018 9:42 PM) Component Value Ref Range Glucose, POC 343 (H) 70 - 100 MG/DL Specimen Performing Laboratory MAIN LAB [address] [place] [address] * POC GLUCOSE (03/30/2018 7:22 PM) Component Value Ref Range Glucose, POC 177 (H) 70 - 100 MG/DL Specimen Performing Laboratory MAIN LAB [address] [place] [address] * POC GLUCOSE (03/30/2018 2:10 PM) Component Value Ref Range Glucose, POC 177 (H) 70 - 100 MG/DL Specimen Performing Laboratory MAIN LAB [address] [place] [address] * POC GLUCOSE (03/30/2018 7:52 AM) Component Value Ref Range Glucose, POC 135 (H) 70 - 100 MG/DL Specimen Performing Laboratory MAIN LAB [address] [place] [address] * MAGNESIUM (03/30/2018 3:50 AM) Component Value Ref Range Magnesium 2.0 1.6 - 2.6 mg/dL Specimen Performing Laboratory Blood MAIN LAB [address] [place] [address] * BASIC METABOLIC PANEL (03/30/2018 3:50 AM) [...] questions. Specimen Performing Laboratory Blood MAIN LAB [address] [place] [address] * CBC (03/30/2018 3:49 AM) Component Value [...] FL Specimen Performing Laboratory Blood MAIN LAB [address] [place] [address] * POC GLUCOSE (03/29/2018 9:03 PM) Component Value Ref Range Glucose, POC 257 (H) 70 - 100 MG/DL Specimen Performing Laboratory MAIN LAB [address] [place] [address] * POC GLUCOSE (03/29/2018 6:17 PM) Component Value Ref Range Glucose, POC 154 (H) 70 - 100 MG/DL Specimen Performing Laboratory MAIN LAB [address] [place] [address] * MAGNESIUM (03/29/2018 5:20 PM) Component Value Ref Range Magnesium 2.1 1.6 - 2.6 mg/dL Specimen Performing Laboratory Blood MAIN LAB [address] [place] [address] * BASIC METABOLIC PANEL (03/29/2018 5:20 PM) [...] Pharmacist for questions. Specimen Performing Laboratory Blood [facility] [address] [place] [address] * POC GLUCOSE (03/29/2018 11:23 AM) Component Value Ref Range Glucose, POC 177 (H) 70 - 100 MG/DL Specimen Performing Laboratory MAIN LAB [address] [place] [address] 11852 * POC GLUCOSE (03/29/2018 7:22 AM) Component Value Ref Range Glucose, POC 149 (H) 70 - 100 MG/DL Specimen Performing Laboratory MAIN LAB [address] [place] [address] * MAGNESIUM (03/29/2018 4:31 AM) Component Value Ref Range Magnesium 2.1 1.6 - 2.6 mg/dL Specimen Performing Laboratory Blood MAIN LAB [address] [place] [address] * BASIC METABOLIC PANEL (03/29/2018 4:31 AM) [...] questions. Specimen Performing Laboratory Blood MAIN LAB [address] [place] [address] * CBC (03/29/2018 4:30 AM) Component Value [...] FL Specimen Performing Laboratory Blood MAIN LAB [address] [place] [address] * POC GLUCOSE (03/29/2018 3:13 AM) Component Value Ref Range Glucose, POC 94 70 - 100 MG/DL Specimen Performing Laboratory MAIN LAB [address] [place] [address] * POC GLUCOSE (03/28/2018 10:17 PM) Component Value Ref Range Glucose, POC 79 70 - 100 MG/DL Specimen Performing Laboratory MAIN LAB [address] [place] [address] * POC GLUCOSE (03/28/2018 6:08 PM) Component Value Ref Range Glucose, POC 123 (H) 70 - 100 MG/DL Specimen Performing Laboratory MAIN LAB [address] [place] [address] * MAGNESIUM (03/28/2018 5:25 PM) Component Value Ref Range Magnesium 2.0 1.6 - 2.6 mg/dL Specimen Performing Laboratory Blood MAIN LAB [address] [place] [address] 36489 * BASIC METABOLIC PANEL (03/28/2018 5:25 PM) [...] questions. Specimen Performing Laboratory Blood MAIN LAB [address] [place] [address] 47143 * DEVICE EVALUATION - ICD (03/28/2018 4:10 PM) Component Value Ref Range Generator [employer] [facility] [facility] Device Type DDD-ICD Wireless Generator Yes Generator MRI Conditional Yes Atrial Lead Publishing Manager [facility] [facility] Atrial Lead Model # TENDRIL MRI [id number] 52cm Atrial Lead Serial # [id number] Atrial Lead Implant Date 03/27/2018 Atrial Lead Fixation active fixation Atrial Lead Polarity Bipolar Atrial Lead Pin Connector IS1 Atrial Lead MRI Yes Conditional RV Lead Publishing Manager [facility] [facility] RV Lead Model # OPTISURE [id number] RV Lead Serial # [id number] RV Lead Implant Date 03/27/2018 RV Lead Fixation active fixation RV Lead Coil Single RV Lead JESUSITA Conditional Yes Generator Model # NADINE GALLEGOS [id number] Generator Serial # [id number] Generator Implnat Date 03/27/2018 Remote Monitor Serial# [id number] Accssory Serial Number [id number] Device [employer]rock Igor On Demand Transmitter Compatible Device Mode [...] 4-12weeks post implant Due Device Implanted By [facility] Pacemaker Dependant No Programming? Yes Date of Last Programming 03/28/18 Interrogation? Yes Date of Last 03/28/18 Interrogation Device Check by Rep Yes HF Patient Yes Remote Monitoring? Yes Date of Last Remote Check TBA Known Diagnosed AFib Yes Specimen Performing Laboratory OTHER OUTSIDE LAB Narrative In-patient "next-day" check (rep) [03/28/2018 4:12:27 PM - MICHELLE LAYNE] Device checked by Renae Valencia [facility] Device rep: - pre-discharge check [place] remote inserviced. Please see attached HRM data sheet for > detail as needed.No changes made by rep. Routed to Dr Fry for co-sign. * POC GLUCOSE (03/28/2018 1:46 PM) Component Value Ref Range Glucose, POC 104 (H) 70 - 100 MG/DL Specimen Performing Laboratory MAIN LAB [address] [place] [address] * POC GLUCOSE (03/28/2018 7:35 AM) Component Value Ref Range Glucose, POC 83 70 - 100 MG/DL Specimen Performing Laboratory MAIN LAB [address] [place] [address] * CHEST 2 VIEWS (03/28/2018 5:29 AM) [...] Performing Laboratory Blood [facility] MAIN LAB [address] [place] [address] * BASIC METABOLIC PANEL (03/28/2018 4:04 AM) [...] questions. Specimen Performing Laboratory Blood MAIN LAB [address] [place] [address] 52192 * CBC (03/28/2018 4:04 AM) Component Value [...] [place] Specimen Performing Laboratory Blood MAIN LAB [address] [place] [address] 51427 * POC GLUCOSE (03/28/2018 3:59 AM) Component Value Ref Range Glucose, POC 75 70 - 100 MG/DL Specimen Performing Laboratory MAIN LAB [address] [place] [address] 55686 * POC GLUCOSE (03/27/2018 8:34 PM) Component Value Ref Range Glucose, POC 262 (H) 70 - 100 MG/DL Specimen Performing Laboratory MAIN LAB [address] [place] [address] 01949 * MAGNESIUM (03/27/2018 6:15 PM) Component Value Ref Range Magnesium 2.0Comment: SLT HEMOLYSIS 1.6 - 2.6 mg/dL Specimen Performing Laboratory Blood MAIN LAB [address] [place] [address] 87729 * BASIC METABOLIC PANEL (03/27/2018 6:15 PM) [...] questions. Specimen Performing Laboratory Blood MAIN LAB [address] [place], [place] [id number] * POC GLUCOSE (03/27/2018 4:50 PM) Component Value Ref Range Glucose, POC 276 (H) 70 - 100 MG/DL Specimen Performing Laboratory MAIN LAB [address] [place] [address] 57433 * POC GLUCOSE (03/27/2018 2:07 PM) Component Value Ref Range Glucose, POC 126 (H) 70 - 100 MG/DL Specimen Performing Laboratory MAIN LAB [address] [place] [address] 82596 * EP DEVICE (03/27/2018 1:15 PM) Component Value Ref Range Generator Publishing Manager [employer] [facility] Device Type DDD-ICD Wireless Generator Yes Generator Location Left Generator MRI Conditional Yes Atrial Lead Publishing Manager [facility] [facility] Atrial Lead Model # TENDRIL MRI [id number] 52cm Atrial Lead Serial # [id number] Atrial Lead Implant Date 03/27/2018 Atrial Lead Fixation active fixation Atrial Lead Polarity Bipolar Atrial Lead Pin Connector IS1 Atrial Lead MRI Yes Conditional RV Lead Publishing Manager [facility] [facility] RV Lead Model # OPTISURE [id number] RV Lead Serial # [id number] RV Lead Implant Date 03/27/2018 RV Lead Fixation active fixation RV Lead Pin Connector PPM DF4 RV Lead Coil Single RV Lead JESUSITA Conditional Yes Generator Model # ALLYSSAIFY EL [id number] Generator Serial # [id number] Generator Implnat Date 03/27/2018 Remote Monitor Serial# [id number] Accssory Serial Number [id number] Device [employer] [place] On Demand Transmitter Compatible Device Mode DDD [...] the skin was infiltrated with local anesthetic. [id number] ACCESS Ultrasound was utilized to confirm axillary [...] was monitored throughout the procedure by the rn cardiac cath staff and myself. The sedation duration was [...] 100 MG/DL Specimen Performing Laboratory MAIN LAB [address] [place] [address] 87127 * PROTIME INR (PT) (03/27/2018 5:15 AM) Component Value Ref Range INR 1.3 (H) 0.8 - 1.2 Specimen Performing Laboratory Blood [facility] LAB [address] [place] [address] 55827 * MAGNESIUM (03/27/2018 5:15 AM) Component Value Ref Range Magnesium 2.0 1.6 - 2.6 mg/dL Specimen Performing Laboratory Blood [facility] LAB [address] [place] [address] 18079 * COMPREHENSIVE METABOLIC PANEL (03/27/2018 5:15 AM) [...] Specimen Performing Laboratory Blood MAIN LAB [address] [place] [id number] * CBC (03/27/2018 5:15 AM) Component Value [...] Specimen Performing Laboratory Blood MAIN LAB [address] [place] [address] * POC GLUCOSE (03/27/2018 4:41 AM) Component Value Ref Range Glucose, POC 109 (H) 70 - 100 MG/DL Specimen Performing Laboratory MAIN LAB [address] [place] [address] 91969 * POC GLUCOSE (03/26/2018 9:06 PM) Component Value Ref Range Glucose, POC 235 (H) 70 - 100 MG/DL Specimen Performing Laboratory MAIN LAB [address] [place] [address]114 * POC GLUCOSE (03/26/2018 7:10 PM) Component Value Ref Range Glucose, POC 167 (H) 70 - 100 MG/DL Specimen Performing Laboratory MAIN LAB [address] [place] [address] 14322 * MAGNESIUM (03/26/2018 5:00 PM) Component Value Ref Range Magnesium 2.1 1.6 - 2.6 mg/dL Specimen Performing Laboratory Blood [facility] LAB [address] [place], [place] [phone] * COMPREHENSIVE METABOLIC PANEL (03/26/2018 5:00 PM) [...] questions. Specimen Performing Laboratory Blood MAIN LAB [address] [place], [place] [phone] * POC GLUCOSE (03/26/2018 4:00 PM) Component Value Ref Range Glucose, POC 98 70 - 100 MG/DL Specimen Performing Laboratory MAIN LAB [address] [place] [address] * TRANSESOPHAGEAL ECHOCARDIOGRAM (03/26/2018 2:58 PM) Component Value Ref Range BSA 2.14 m2 CV ECHO PV MOBILE SALES EXPERT TREVOR [employer] operator Ultrasound Siemens [id number] Machine ECHO EF 10 % Specimen Performing [...] MG/DL Specimen Performing Laboratory MAIN LAB [address] [place] [address] * NM PET HEART METABOLISM SARCOID (03/26/2018 [...] Specimen Performing Laboratory Blood MAIN LAB [address] [place] [address] * MAGNESIUM (03/26/2018 4:30 AM) Component Value Ref Range Magnesium 2.1 1.6 - 2.6 mg/dL Specimen Performing Laboratory Blood MAIN LAB [address] [place] [address] * COMPREHENSIVE METABOLIC PANEL (03/26/2018 4:30 AM) [...] questions. Specimen Performing Laboratory Blood MAIN LAB [address] [place] [address] 94838 * POC GLUCOSE (03/26/2018 4:00 AM) Component Value Ref Range Glucose, POC 146 (H) 70 - 100 MG/DL Specimen Performing Laboratory MAIN LAB [address] [place] [address] 24106 * POC GLUCOSE (03/25/2018 8:44 PM) Component Value Ref Range Glucose, POC 148 (H) 70 - 100 MG/DL Specimen Performing Laboratory MAIN LAB [address] [place] [address] 44778 * POC GLUCOSE (03/25/2018 5:54 PM) Component Value Ref Range Glucose, POC 135 (H) 70 - 100 MG/DL Specimen Performing Laboratory MAIN LAB [address] [place], [place] [phone] * MAGNESIUM (03/25/2018 4:40 PM) Component Value Ref Range Magnesium 2.2 1.6 - 2.6 mg/dL Specimen Performing Laboratory Blood [facility] [address] [place] [address] 67291 * COMPREHENSIVE METABOLIC PANEL (03/25/2018 4:40 PM) [...] Blood [facility] MAIN LAB [address] [place] [address] * CT CHEST WO CONTRAST (03/25/2018 3:46 [...] 70 - 100 MG/DL Specimen Performing Laboratory [address] [address] * POC GLUCOSE (03/25/2018 10:06 AM) Component Value Ref Range Glucose, POC 192 (H) 70 - 100 MG/DL Specimen Performing Laboratory [address] [address] * POC GLUCOSE (03/25/2018 9:15 AM) Component Value Ref Range Glucose, POC 190 (H) 70 - 100 MG/DL Specimen Performing Laboratory [address] [address] * POC GLUCOSE (03/25/2018 8:38 AM) Component Value Ref Range Glucose, POC 109 (H) 70 - 100 MG/DL Specimen Performing Laboratory [address] [address] * POC GLUCOSE (03/25/2018 8:04 AM) Component Value Ref Range Glucose, POC 100 70 - 100 MG/DL Specimen Performing Laboratory [address] [address] * POC GLUCOSE (03/25/2018 6:06 AM) Component Value Ref Range Glucose, POC 132 (H) 70 - 100 MG/DL Specimen Performing Laboratory [address] [address] * POC GLUCOSE (03/25/2018 5:04 AM) Component Value Ref Range Glucose, POC 138 (H) 70 - 100 MG/DL Specimen Performing Laboratory [address] [address] * POC GLUCOSE (03/25/2018 3:55 AM) Component Value Ref Range Glucose, POC 133 (H) 70 - 100 MG/DL Specimen Performing Laboratory [address] [address] * POC GLUCOSE (03/25/2018 3:09 AM) Component Value Ref Range Glucose, POC 166 (H) 70 - 100 MG/DL Specimen Performing Laboratory [facility] [address] [place] [address] 80269 * POC GLUCOSE (03/25/2018 3:06 AM) Component Value Ref Range Glucose, POC 217 (H) 70 - 100 MG/DL Specimen Performing Laboratory MAIN LAB [address] [place] [address] * CBC (03/25/2018 2:55 AM) Component Value [...] [place] Specimen Performing Laboratory Blood MAIN LAB [address] [place], [place] [phone] * MAGNESIUM (03/25/2018 2:55 AM) Component Value Ref Range Magnesium 2.3 1.6 - 2.6 mg/dL Specimen Performing Laboratory Blood MAIN LAB [address] [place], [place] [phone] * COMPREHENSIVE METABOLIC PANEL (03/25/2018 2:55 AM) [...] Pharmacist for questions. Specimen Performing Laboratory Blood [facility] [address] [place] [address] 28822 * POC GLUCOSE (03/25/2018 2:50 AM) Component Value Ref Range Glucose, POC 71 70 - 100 MG/DL Specimen Performing Laboratory [facility] [address] [place] [address] 49861 * POC GLUCOSE (03/25/2018 12:49 AM) Component Value Ref Range Glucose, POC 129 (H) 70 - 100 MG/DL Specimen Performing Laboratory [facility] [address] [place] [address] 64557 * POC GLUCOSE (03/25/2018 12:15 AM) Component Value Ref Range Glucose, POC 136 (H) 70 - 100 MG/DL Specimen Performing Laboratory [facility] [address] [place] [address] 13900 * POC GLUCOSE (03/24/2018 11:01 PM) Component Value Ref Range Glucose, POC 144 (H) 70 - 100 MG/DL Specimen Performing Laboratory [facility] [address] [place] [address] 87666 * POC GLUCOSE (03/24/2018 10:03 PM) Component Value Ref Range Glucose, POC 164 (H) 70 - 100 MG/DL Specimen Performing Laboratory [facility] [address] [place], [place] [phone] * BASIC METABOLIC PANEL (03/24/2018 9:11 PM) [...] Pharmacist for questions. Specimen Performing Laboratory Blood [facility] [address] [place] [address] 69114 * POC GLUCOSE (03/24/2018 9:10 PM) Component Value Ref Range Glucose, POC 214 (H) 70 - 100 MG/DL Specimen Performing Laboratory [facility] [address] [place] [address] 09410 * POC GLUCOSE (03/24/2018 7:59 PM) Component Value Ref Range Glucose, POC 253 (H) 70 - 100 MG/DL Specimen Performing Laboratory [facility] [address] [place] [address] 47550 * POC GLUCOSE (03/24/2018 6:56 PM) Component Value Ref Range Glucose, POC 151 (H) 70 - 100 MG/DL Specimen Performing Laboratory [facility] [address] [place] [address] 29897 * POC GLUCOSE (03/24/2018 6:06 PM) Component Value Ref Range Glucose, POC 164 (H) 70 - 100 MG/DL Specimen Performing Laboratory [facility] [address] [place] [address] 04289 * POC GLUCOSE (03/24/2018 5:10 PM) Component Value Ref Range Glucose, POC 184 (H) 70 - 100 MG/DL Specimen Performing Laboratory [facility] [address] [place] [address] 48819 * POC GLUCOSE (03/24/2018 3:48 PM) Component Value Ref Range Glucose, POC 192 (H) 70 - 100 MG/DL Specimen Performing Laboratory [facility] [address] [place] [address] 63924 * MAGNESIUM (03/24/2018 3:45 PM) Component Value Ref Range Magnesium 2.1 1.6 - 2.6 mg/dL Specimen Performing Laboratory Blood [facility] [address] [place] [address] 34941 * COMPREHENSIVE METABOLIC PANEL (03/24/2018 3:45 PM) [...] Pharmacist for questions. Specimen Performing Laboratory Blood [facility] [address] [place] [address] 47204 * POC GLUCOSE (03/24/2018 2:06 PM) Component Value Ref Range Glucose, POC 143 (H) 70 - 100 MG/DL Specimen Performing Laboratory [facility] [address] [place] [address] 23188 * POC GLUCOSE (03/24/2018 12:11 PM) Component Value Ref Range Glucose, POC 159 (H) 70 - 100 MG/DL Specimen Performing Laboratory [facility] [address] [place] [address] 44875 * POC GLUCOSE (03/24/2018 10:56 AM) Component Value Ref Range Glucose, POC 145 (H) 70 - 100 MG/DL Specimen Performing Laboratory [facility] [address] [place] [address] 75045 * POC GLUCOSE (03/24/2018 9:56 AM) Component Value Ref Range Glucose, POC 158 (H) 70 - 100 MG/DL Specimen Performing Laboratory [facility] [address] [place] [address] 32384 * POC GLUCOSE (03/24/2018 9:17 AM) Component Value Ref Range Glucose, POC 167 (H) 70 - 100 MG/DL Specimen Performing Laboratory [facility] [address] [place] [address] 34131 * POC GLUCOSE (03/24/2018 8:00 AM) Component Value Ref Range Glucose, POC 157 (H) 70 - 100 MG/DL Specimen Performing Laboratory [facility] [address] [place] [address] 56796 * POC GLUCOSE (03/24/2018 6:47 AM) Component Value Ref Range Glucose, POC 160 (H) 70 - 100 MG/DL Specimen Performing Laboratory [facility] [address] [place] [address] 28820 * POC GLUCOSE (03/24/2018 5:48 AM) Component Value Ref Range Glucose, POC 151 (H) 70 - 100 MG/DL Specimen Performing Laboratory [facility] [address] [place] [address] 61953 * POC GLUCOSE (03/24/2018 4:59 AM) Component Value Ref Range Glucose, POC 148 (H) 70 - 100 MG/DL Specimen Performing Laboratory [facility] [address] [place] [address] 67033 * POC GLUCOSE (03/24/2018 4:00 AM) Component Value Ref Range Glucose, POC 163 (H) 70 - 100 MG/DL Specimen Performing Laboratory [facility] [address] [place] [address] 84612 * CBC (03/24/2018 4:00 AM) Component Value [...] - 11 FL Specimen Performing Laboratory Blood [facility] [address] [place] [address] 67198 * MAGNESIUM (03/24/2018 4:00 AM) Component Value Ref Range Magnesium 1.8 1.6 - 2.6 mg/dL Specimen Performing Laboratory Blood [facility] [address] [place] [address] 09080 * COMPREHENSIVE METABOLIC PANEL (03/24/2018 4:00 AM) [...] Pharmacist for questions. Specimen Performing Laboratory Blood [facility] [address] [place], [place] [phone] * POC GLUCOSE (03/24/2018 1:41 AM) Component Value Ref Range Glucose, POC 135 (H) 70 - 100 MG/DL Specimen Performing Laboratory [facility] [address] [place] [address] 41547 * POC GLUCOSE (03/23/2018 11:42 PM) Component Value Ref Range Glucose, POC 154 (H) 70 - 100 MG/DL Specimen Performing Laboratory MAIN LAB [address] [place] [address] 17048 * POC GLUCOSE (03/23/2018 10:00 PM) Component Value Ref Range Glucose, POC 149 (H) 70 - 100 MG/DL Specimen Performing Laboratory [facility] [address] [place] [address] 45458 * POC GLUCOSE (03/23/2018 7:58 PM) Component Value Ref Range Glucose, POC 132 (H) 70 - 100 MG/DL Specimen Performing Laboratory MAIN LAB [address] [place] [address] 91526 * POC GLUCOSE (03/23/2018 5:57 PM) Component Value Ref Range Glucose, POC 141 (H) 70 - 100 MG/DL Specimen Performing Laboratory MAIN LAB [address] [place] [address] 61921 * POC GLUCOSE (03/23/2018 5:02 PM) Component Value Ref Range Glucose, POC 155 (H) 70 - 100 MG/DL Specimen Performing Laboratory MAIN LAB [address] [place] [address] 81934 * MAGNESIUM (03/23/2018 4:12 PM) Component Value Ref Range Magnesium 2.0 1.6 - 2.6 mg/dL Specimen Performing Laboratory Blood MAIN LAB [address] [place] [address] 57404 * COMPREHENSIVE METABOLIC PANEL (03/23/2018 4:12 PM) [...] questions. Specimen Performing Laboratory Blood MAIN LAB [address] [place] [address] 28370 * POC GLUCOSE (03/23/2018 4:09 PM) Component Value Ref Range Glucose, POC 155 (H) 70 - 100 MG/DL Specimen Performing Laboratory MAIN LAB [address] [place] [address] 59668 * POC GLUCOSE (03/23/2018 3:12 PM) Component Value Ref Range Glucose, POC 148 (H) 70 - 100 MG/DL Specimen Performing Laboratory [facility] [address] [place] [address] 60584 * POC GLUCOSE (03/23/2018 2:03 PM) Component Value Ref Range Glucose, POC 176 (H) 70 - 100 MG/DL Specimen Performing Laboratory [facility] [address] [place] [address] 65471 * POC GLUCOSE (03/23/2018 12:16 PM) Component Value Ref Range Glucose, POC 146 (H) 70 - 100 MG/DL Specimen Performing Laboratory [facility] [address] [place] [address] 92402 * HEPARIN INDUCED PLT AB (HIT) (03/23/2018 11:20 AM) Component Value Ref Range Heparin Induced Plt AB NEGATIVEComment: TEST PERFORMED BY [facility] NEGA- NEGATIVE [facility] Heparin AB OD 0.030 0.000 - 0.499 Specimen Performing Laboratory Blood [facility] [address] [place] [address] 00047 * POC GLUCOSE (03/23/2018 10:52 AM) Component Value Ref Range Glucose, POC 199 (H) 70 - 100 MG/DL Specimen Performing Laboratory [facility] [address] [place] [address] 73209 * POC GLUCOSE (03/23/2018 10:01 AM) Component Value Ref Range Glucose, POC 203 (H) 70 - 100 MG/DL Specimen Performing Laboratory [facility] [address] [place] [address] 24095 * POC GLUCOSE (03/23/2018 8:19 AM) Component Value Ref Range Glucose, POC 165 (H) 70 - 100 MG/DL Specimen Performing Laboratory [facility] [address] [place] [address] 58660 * POC GLUCOSE (03/23/2018 6:57 AM) Component Value Ref Range Glucose, POC 179 (H) 70 - 100 MG/DL Specimen Performing Laboratory [facility] [address] [place] [address] 54248 * POC GLUCOSE (03/23/2018 6:00 AM) Component Value Ref Range Glucose, POC 187 (H) 70 - 100 MG/DL Specimen Performing Laboratory [facility] [address] [place] [address] 64938 * PTT (APTT) (03/23/2018 5:05 AM) Component Value Ref Range APTT 101.5 (H) 21.0 - 39.0 SEC Specimen Performing Laboratory Blood [facility] MAIN LAB [address] [place] [address] * POC GLUCOSE (03/23/2018 5:04 AM) Component Value Ref Range Glucose, POC 196 (H) 70 - 100 MG/DL Specimen Performing Laboratory [facility] MAIN LAB [address] [place] [address] * CHEST SINGLE VIEW (03/23/2018 4:57 AM) [...] Specimen Performing Laboratory Blood MAIN LAB [address] [place] [address] * COMPREHENSIVE METABOLIC PANEL (03/23/2018 4:02 AM) [...] Specimen Performing Laboratory Blood MAIN LAB [address] [place] [address] * CBC (03/23/2018 4:02 AM) Component Value [...] Specimen Performing Laboratory Blood [facility] MAIN LAB [address] [place] [address] 26922 * POC GLUCOSE (03/23/2018 4:01 AM) Component Value Ref Range Glucose, POC 222 (H) 70 - 100 MG/DL Specimen Performing Laboratory [facility] [address] [place] [address] 99228 * POC GLUCOSE (03/23/2018 3:01 AM) Component Value Ref Range Glucose, POC 196 (H) 70 - 100 MG/DL Specimen Performing Laboratory [facility] [address] [place] [address] 91154 * POC GLUCOSE (03/23/2018 2:03 AM) Component Value Ref Range Glucose, POC 187 (H) 70 - 100 MG/DL Specimen Performing Laboratory [address] [address] * POC GLUCOSE (03/23/2018 1:01 AM) Component Value Ref Range Glucose, POC 154 (H) 70 - 100 MG/DL Specimen Performing Laboratory [address] [address] * POC GLUCOSE (03/23/2018 12:10 AM) Component Value Ref Range Glucose, POC 175 (H) 70 - 100 MG/DL Specimen Performing Laboratory [address] [address] * POC GLUCOSE (03/22/2018 11:06 PM) Component Value Ref Range Glucose, POC 178 (H) 70 - 100 MG/DL Specimen Performing Laboratory [address] [address] * PTT (APTT) (03/22/2018 11:05 PM) Component Value Ref Range APTT 78.4 (H) 21.0 - 39.0 SEC Specimen Performing Laboratory Blood [address] [address] * POC GLUCOSE (03/22/2018 9:20 PM) Component Value Ref Range Glucose, POC 154 (H) 70 - 100 MG/DL Specimen Performing Laboratory [address] [address] * VANCOMYCIN TROUGH (03/22/2018 9:20 PM) Component Value Ref Range Vancomycin Trough 20.1 (H) 10.0 - 20.0 MCG/ML Specimen Performing Laboratory Blood, venous - Blood [facility] [address] [place] [address] 93829 * POC GLUCOSE (03/22/2018 6:46 PM) Component Value Ref Range Glucose, POC 122 (H) 70 - 100 MG/DL Specimen Performing Laboratory MAIN LAB [address] [place] [address] 96094 * POC GLUCOSE (03/22/2018 5:06 PM) Component Value Ref Range Glucose, POC 132 (H) 70 - 100 MG/DL Specimen Performing Laboratory MAIN LAB [address] [place] [address] 61138 * POC GLUCOSE (03/22/2018 4:13 PM) Component Value Ref Range Glucose, POC 144 (H) 70 - 100 MG/DL Specimen Performing Laboratory MAIN LAB [address] [place] [address] 79096 * PTT (APTT) (03/22/2018 4:10 PM) Component Value Ref Range APTT 31.9 21.0 - 39.0 SEC Specimen Performing Laboratory Blood MAIN LAB [address] [place] [address] 03019 * MAGNESIUM (03/22/2018 4:10 PM) Component Value Ref Range Magnesium 2.2 1.6 - 2.6 mg/dL Specimen Performing Laboratory Blood MAIN LAB [address] [place] [address] 57669 * COMPREHENSIVE METABOLIC PANEL (03/22/2018 4:10 PM) [...] Pharmacist for questions. Specimen Performing Laboratory Blood [facility] [address] [place], [place] [phone] * POC GLUCOSE (03/22/2018 3:03 PM) Component Value Ref Range Glucose, POC 124 (H) 70 - 100 MG/DL Specimen Performing Laboratory [facility] [address] [place] [address] 85029 * POC GLUCOSE (03/22/2018 2:06 PM) Component Value Ref Range Glucose, POC 103 (H) 70 - 100 MG/DL Specimen Performing Laboratory [facility] [address] [place], [place] [phone] * POC ACTIVATED CLOTTING TIME (03/22/2018 1:59 PM) Component Value Ref Range Activated Clotting Time 213 s Specimen Performing Laboratory [facility] [address] [place] [address] 38999 * POC GLUCOSE (03/22/2018 1:06 PM) Component Value Ref Range Glucose, POC 115 (H) 70 - 100 MG/DL Specimen Performing Laboratory [facility] LAB [address] [place] [address] 8[address]39 * POC GLUCOSE (03/22/2018 12:01 PM) Component Value Ref Range Glucose, POC 107 (H) 70 - 100 MG/DL Specimen Performing Laboratory [facility] [address] [place] [address] 00674 * POC GLUCOSE (03/22/2018 10:58 AM) Component Value Ref Range Glucose, POC 106 (H) 70 - 100 MG/DL Specimen Performing Laboratory [facility] [address] [place] [address] 60086 * MAGNESIUM (03/22/2018 10:54 AM) Component Value Ref Range Magnesium 2.6 1.6 - 2.6 mg/dL Specimen Performing Laboratory Blood [facility] [address] [place], [place] [id number] * BASIC METABOLIC PANEL (03/22/2018 10:54 AM) [...] questions. Specimen Performing Laboratory Blood MAIN LAB [address] [place] [address] * PTT (APTT) (03/22/2018 10:54 AM) Component Value Ref Range APTT 139.7 (HH) 21.0 - 39.0 SEC Comment: Critical Result APTT:Called to VON Douglass at: 11:59:41 by: BLAYNE Read back by: VON Douglass Specimen Performing Laboratory Blood [facility] [address] [place] [address] 24180 * BLOOD GASES, ARTERIAL (03/22/2018 9:40 AM) Component Value Ref Range pH-Arterial 7.34 (L) 7.35 - 7.45 pCO2-Arterial 53 (H) 35 - 45 MMHG pO2-Arterial 104 (H) 80 - 100 MMHG Base Excess-Arterial 1.8 MMOL/L O2 Sat-Arterial 97.5 95 - 99 % Mpbnjgneagm-ZNO-Ujz 26.0 21 - 28 MMOL/L Specimen Performing Laboratory Blood, arterial - Blood [facility] [address] [place] [address] 18958 * POC GLUCOSE (03/22/2018 9:06 AM) Component Value Ref Range Glucose, POC 122 (H) 70 - 100 MG/DL Specimen Performing Laboratory MAIN LAB [address] [place] [address] 42001 * POC GLUCOSE (03/22/2018 7:49 AM) Component Value Ref Range Glucose, POC 125 (H) 70 - 100 MG/DL Specimen Performing Laboratory MAIN LAB [address] [place] [address] 75171 * POC GLUCOSE (03/22/2018 6:54 AM) Component Value Ref Range Glucose, POC 122 (H) 70 - 100 MG/DL Specimen Performing Laboratory MAIN LAB [address] [place], [place] [id number] * POC GLUCOSE (03/22/2018 6:00 AM) Component Value Ref Range Glucose, POC 149 (H) 70 - 100 MG/DL Specimen Performing Laboratory MAIN LAB [address] [place], [place] [id number] * BLOOD GASES, ARTERIAL (03/22/2018 5:00 AM) Component Value Ref Range pH-Arterial 7.39 7.35 - 7.45 pCO2-Arterial 47 (H) 35 - 45 MMHG pO2-Arterial 89 80 - 100 MMHG Base Excess-Arterial 2.4 MMOL/L O2 Sat-Arterial 97.0 95 - 99 % Sxqktffbcpq-GPT-Pxj 26.5 21 - 28 MMOL/L Specimen Performing Laboratory Blood, arterial - Blood MAIN LAB [address] [place], [place] [id number] * O2 SATURATION, MIXED VENOUS (03/22/2018 5:00 AM) Component Value Ref Range O2Jvu-Garjs Venous 79.2 % Specimen Performing Laboratory Blood MAIN LAB [address] [place], [place] [phone] * MAGNESIUM (03/22/2018 5:00 AM) Component Value Ref Range Magnesium 1.9 1.6 - 2.6 mg/dL Specimen Performing Laboratory Blood MAIN LAB [address] [place], [place] [id number] * COMPREHENSIVE METABOLIC PANEL (03/22/2018 5:00 AM) [...] questions. Specimen Performing Laboratory Blood MAIN LAB [address] [place] [address] 24986 * CBC (03/22/2018 5:00 AM) Component Value [...] [place] Specimen Performing Laboratory Blood MAIN LAB [address] [place] [address] 58433 * POC GLUCOSE (03/22/2018 4:57 AM) Component Value Ref Range Glucose, POC 148 (H) 70 - 100 MG/DL Specimen Performing Laboratory MAIN LAB [address] [place] [address] 25298 * POC GLUCOSE (03/22/2018 4:12 AM) Component Value Ref Range Glucose, POC 147 (H) 70 - 100 MG/DL Specimen Performing Laboratory MAIN LAB [address] [place] [address] 10337 * CHEST SINGLE VIEW (03/22/2018 3:57 AM) [...] Performing Laboratory Blood [facility] MAIN [facility] [address] [place] [address] * POC GLUCOSE (03/22/2018 2:59 AM) Component Value Ref Range Glucose, POC 178 (H) 70 - 100 MG/DL Specimen Performing Laboratory MAIN LAB [address] [place] [address] 61000 * POC GLUCOSE (03/22/2018 1:54 AM) Component Value Ref Range Glucose, POC 169 (H) 70 - 100 MG/DL Specimen Performing Laboratory MAIN LAB [address] [place] [address] 41635 * POC GLUCOSE (03/21/2018 11:59 PM) Component Value Ref Range Glucose, POC 152 (H) 70 - 100 MG/DL Specimen Performing Laboratory MAIN LAB [address] [place] [address] 73306 * BLOOD GASES, ARTERIAL (03/21/2018 10:00 PM) Component Value Ref Range pH-Arterial 7.42 7.35 - 7.45 pCO2-Arterial 41 35 - 45 MMHG pO2-Arterial 85 80 - 100 MMHG Base Excess-Arterial 1.5 MMOL/L O2 Sat-Arterial 97.2 95 - 99 % Ylmffgaxrdp-YPW-Jey 25.7 21 - 28 MMOL/L Specimen Performing Laboratory Blood, arterial - Blood MAIN LAB [address] [place] [address] 91745 * POC GLUCOSE (03/21/2018 9:58 PM) Component Value Ref Range Glucose, POC 143 (H) 70 - 100 MG/DL Specimen Performing Laboratory [facility] [address] [place] [address] 37073 * POC GLUCOSE (03/21/2018 9:06 PM) Component Value Ref Range Glucose, POC 122 (H) 70 - 100 MG/DL Specimen Performing Laboratory MAIN LAB [address] [place] [address] 51226 * POC GLUCOSE (03/21/2018 8:02 PM) Component Value Ref Range Glucose, POC 131 (H) 70 - 100 MG/DL Specimen Performing Laboratory [facility] [address] [place] [address] 35869 * MAGNESIUM (03/21/2018 8:01 PM) Component Value Ref Range Magnesium 2.1 1.6 - 2.6 mg/dL Specimen Performing Laboratory Blood [facility] [address] [place] [address] 13979 * COMPREHENSIVE METABOLIC PANEL (03/21/2018 8:01 PM) [...] Performing Laboratory Blood [facility] MAIN [facility] [address] [place] [address] * US ABDOMEN COMPLETE (03/21/2018 7:00 PM) [...] 70 - 100 MG/DL Specimen Performing Laboratory [facility] [address] [place] [address] 66497 * POC GLUCOSE (03/21/2018 6:00 PM) Component Value Ref Range Glucose, POC 94 70 - 100 MG/DL Specimen Performing Laboratory [facility] [address] [place] [address] 34363 * POC GLUCOSE (03/21/2018 5:02 PM) Component Value Ref Range Glucose, POC 92 70 - 100 MG/DL Specimen Performing Laboratory [facility] [address] [place] [address] 13210 * POC GLUCOSE (03/21/2018 4:37 PM) Component Value Ref Range Glucose, POC 79 70 - 100 MG/DL Specimen Performing Laboratory [facility] [address] [place] [address] 92486 * O2 SATURATION, MIXED VENOUS (03/21/2018 3:20 PM) Component Value Ref Range R1Sqy-Mkmnd Venous 76.0 % Specimen Performing Laboratory Blood [facility] [address] [place] [address] 13141 * POC GLUCOSE (03/21/2018 2:09 PM) Component Value Ref Range Glucose, POC 111 (H) 70 - 100 MG/DL Specimen Performing Laboratory [facility] [address] [place] [address] 91380 * BLOOD GASES, ARTERIAL (03/21/2018 1:08 PM) Component Value Ref Range pH-Arterial 7.38 7.35 - 7.45 pCO2-Arterial 42 35 - 45 MMHG pO2-Arterial 115 (H) 80 - 100 MMHG Base Deficit-Arterial 0.1 MMOL/L O2 Sat-Arterial 98.5 95 - 99 % Ndtovgwmhwv-JPZ-Nso 24.4 21 - 28 MMOL/L Specimen Performing Laboratory Blood, arterial - Blood MAIN LAB [address] [place] [address] * MAGNESIUM (03/21/2018 1:08 PM) Component Value Ref Range Magnesium 2.0 1.6 - 2.6 mg/dL Specimen Performing Laboratory Blood MAIN LAB [address] [place] [address] * COMPREHENSIVE METABOLIC PANEL (03/21/2018 1:08 PM) [...] Specimen Performing Laboratory Blood MAIN LAB [address] [place] [address] * POC GLUCOSE (03/21/2018 12:07 PM) Component Value Ref Range Glucose, POC 155 (H) 70 - 100 MG/DL Specimen Performing Laboratory [facility] MAIN [facility] [address] [place] [address] * 2-D + DOPPLER ECHOCARDIOGRAM (03/21/2018 11:24 [...] 1.78 E/E' ratio 8.08 CV ECHO PV [employer] TREVOR Werner LV mass 154.54 66 - 150 g RWT 0.35 <=0.42 Cardiology Ultrasound Siemens [id number] Machine Left Ventricle Mass Index 66.90 44 [...] 100 MG/DL Specimen Performing Laboratory MAIN LAB [address] [place] [address] 93710 * POC GLUCOSE (03/21/2018 9:59 AM) Component Value Ref Range Glucose, POC 159 (H) 70 - 100 MG/DL Specimen Performing Laboratory MAIN LAB [address] [place] [address] 14673 * POC GLUCOSE (03/21/2018 8:25 AM) Component Value Ref Range Glucose, POC 198 (H) 70 - 100 MG/DL Specimen Performing Laboratory MAIN LAB [address] [place] [address] 78490 * POC GLUCOSE (03/21/2018 6:46 AM) Component Value Ref Range Glucose, POC 199 (H) 70 - 100 MG/DL Specimen Performing Laboratory MAIN LAB [address] [place] [address] 45162 * PTT (APTT) (03/21/2018 6:46 AM) Component Value Ref Range APTT 74.2 (H) 21.0 - 39.0 SEC Specimen Performing Laboratory Blood [facility] [address] [place] [address] 73537 * POC GLUCOSE (03/21/2018 6:03 AM) Component Value Ref Range Glucose, POC 224 (H) 70 - 100 MG/DL Specimen Performing Laboratory MAIN LAB [address] [place] [address] 99368 * CHEST SINGLE VIEW (03/21/2018 5:53 AM) [...] 100 MG/DL Specimen Performing Laboratory MAIN LAB [address] [place] [address] 73423 * BLOOD GASES, ARTERIAL (03/21/2018 4:10 AM) Component Value Ref Range pH-Arterial 7.43 7.35 - 7.45 pCO2-Arterial 39 35 - 45 MMHG pO2-Arterial 80 80 - 100 MMHG Base Excess-Arterial 1.2 MMOL/L O2 Sat-Arterial 96.3 95 - 99 % Nxgclbdhrls-RBI-Qax 25.4 21 - 28 MMOL/L Specimen Performing Laboratory Blood, arterial - Blood MAIN LAB [address] [place] [address] 72437 * O2 SATURATION, MIXED VENOUS (03/21/2018 4:10 AM) Component Value Ref Range G3Vru-Ovsnv Venous 69.3 % Specimen Performing Laboratory Blood MAIN LAB [address] [place] [address] 10131 * MAGNESIUM (03/21/2018 4:10 AM) Component Value Ref Range Magnesium 2.0 1.6 - 2.6 mg/dL Specimen Performing Laboratory Blood MAIN LAB [address] [place] [address] 07475 * COMPREHENSIVE METABOLIC PANEL (03/21/2018 4:10 AM) [...] questions. Specimen Performing Laboratory Blood MAIN LAB [address] [place] [address] 50628 * CBC (03/21/2018 4:10 AM) Component Value [...] Specimen Performing Laboratory Blood MAIN LAB [address] [place] [address] * POC GLUCOSE (03/21/2018 4:07 AM) Component Value Ref Range Glucose, POC 196 (H) 70 - 100 MG/DL Specimen Performing Laboratory MAIN LAB [address] [place] [address] * POC GLUCOSE (03/21/2018 3:02 AM) Component Value Ref Range Glucose, POC 199 (H) 70 - 100 MG/DL Specimen Performing Laboratory MAIN LAB [address] [place] [address] 26735 * POC GLUCOSE (03/21/2018 1:56 AM) Component Value Ref Range Glucose, POC 175 (H) 70 - 100 MG/DL Specimen Performing Laboratory MAIN LAB [address] [place] [address] 81648 * POC GLUCOSE (03/20/2018 11:58 PM) Component Value Ref Range Glucose, POC 153 (H) 70 - 100 MG/DL Specimen Performing Laboratory MAIN LAB [address] [place] [address] 06411 * POC GLUCOSE (03/20/2018 10:04 PM) Component Value Ref Range Glucose, POC 162 (H) 70 - 100 MG/DL Specimen Performing Laboratory MAIN LAB [address] [place] [address] 32158 * BLOOD GASES, ARTERIAL (03/20/2018 10:00 PM) Component Value Ref Range pH-Arterial 7.42 7.35 - 7.45 pCO2-Arterial 37 35 - 45 MMHG pO2-Arterial 90 80 - 100 MMHG Base Deficit-Arterial 0.0 MMOL/L O2 Sat-Arterial 97.3 95 - 99 % Hqdwfseueeg-UQS-Rhi 24.4 21 - 28 MMOL/L Specimen Performing Laboratory Blood, arterial - Blood MAIN LAB [address] [place] [address] 51978 * POC GLUCOSE (03/20/2018 9:06 PM) Component Value Ref Range Glucose, POC 128 (H) 70 - 100 MG/DL Specimen Performing Laboratory MAIN LAB [address] [place] [address] 15957 * O2 SATURATION, MIXED VENOUS (03/20/2018 8:10 PM) Component Value Ref Range R9Uwv-Cyuwg Venous 74.2 % Specimen Performing Laboratory Blood MAIN LAB [address] [place] [address] 50215 * MAGNESIUM (03/20/2018 8:10 PM) Component Value Ref Range Magnesium 2.0 1.6 - 2.6 mg/dL Specimen Performing Laboratory Blood MAIN LAB [address] [place] [address] 53790 * COMPREHENSIVE METABOLIC PANEL (03/20/2018 8:10 PM) [...] Pharmacist for questions. Specimen Performing Laboratory Blood [facility] [address] [place] [address] 05517 * POC GLUCOSE (03/20/2018 8:04 PM) Component Value Ref Range Glucose, POC 130 (H) 70 - 100 MG/DL Specimen Performing Laboratory [facility] [address] [place] [address] 21912 * POC GLUCOSE (03/20/2018 7:36 PM) Component Value Ref Range Glucose, POC 115 (H) 70 - 100 MG/DL Specimen Performing Laboratory MAIN LAB [address] [place] [address] 56236 * POC GLUCOSE (03/20/2018 7:03 PM) Component Value Ref Range Glucose, POC 117 (H) 70 - 100 MG/DL Specimen Performing Laboratory MAIN LAB [address] [place] [address] 81806 * POC GLUCOSE (03/20/2018 5:55 PM) Component Value Ref Range Glucose, POC 168 (H) 70 - 100 MG/DL Specimen Performing Laboratory MAIN LAB [address] [place] [address] * POC ACTIVATED CLOTTING TIME (03/20/2018 4:46 PM) Component Value Ref Range Activated Clotting Time 196 s Specimen Performing Laboratory MAIN LAB [address] [place] [address] * POC GLUCOSE (03/20/2018 3:59 PM) Component Value Ref Range Glucose, POC 179 (H) 70 - 100 MG/DL Specimen Performing Laboratory MAIN LAB [address] [place] [address] 85428 * POC GLUCOSE (03/20/2018 3:03 PM) Component Value Ref Range Glucose, POC 184 (H) 70 - 100 MG/DL Specimen Performing Laboratory MAIN LAB [address] [place] [address] 35274 * POC GLUCOSE (03/20/2018 2:00 PM) Component Value Ref Range Glucose, POC 206 (H) 70 - 100 MG/DL Specimen Performing Laboratory MAIN LAB [address] [place] [address] 94958 * ABDOMEN AP ONLY (03/20/2018 1:55 PM) [...] distal esophagus. Results were called to [facility], at the time of interpretation at 12:10 PM on March 20, 2018. Finalized by Violette Moura M.D. on 03/20/2018 2:09 PM. Dictated by Violette Moura M.D. on 03/20/2018 2:04 PM. * POC GLUCOSE (03/20/2018 1:05 PM) Component Value Ref Range Glucose, POC 221 (H) 70 - 100 MG/DL Specimen Performing Laboratory MAIN LAB [address] [place] [address] * O2 SATURATION, MIXED VENOUS (03/20/2018 12:15 PM) Component Value Ref Range H3Ymn-Orljv Venous 74.9 % Specimen Performing Laboratory Blood [facility] [address] [place] [address] * POC GLUCOSE (03/20/2018 12:06 PM) Component Value Ref Range Glucose, POC 234 (H) 70 - 100 MG/DL Specimen Performing Laboratory MAIN LAB [address] [place] [address] * MAGNESIUM (03/20/2018 12:05 PM) Component Value Ref Range Magnesium 2.0 1.6 - 2.6 mg/dL Specimen Performing Laboratory Blood [facility] [address] [place] [address] * COMPREHENSIVE METABOLIC PANEL (03/20/2018 12:05 PM) [...] questions. Specimen Performing Laboratory Blood MAIN LAB [address] [place] [address] 56921 * POC GLUCOSE (03/20/2018 10:59 AM) Component Value Ref Range Glucose, POC 231 (H) 70 - 100 MG/DL Specimen Performing Laboratory MAIN LAB [address] [place] [address] 09653 * PTT (APTT) (03/20/2018 7:23 AM) Component Value Ref Range APTT 109.8 (H) 21.0 - 39.0 SEC Specimen Performing Laboratory Blood MAIN LAB [address] [place] [address] 85522 * POC GLUCOSE (03/20/2018 6:00 AM) Component Value Ref Range Glucose, POC 232 (H) 70 - 100 MG/DL Specimen Performing Laboratory MAIN LAB [address] [place] [address] 77084 * CHEST SINGLE VIEW (03/20/2018 4:38 AM) [...] from one day prior Findings: Right IJ Almont-Mikel catheter has been placed with the tip [...] from one day prior Findings: Right IJ Almont-Mikel catheter has been placed with the tip [...] O2 Sat-Arterial 98.3 95 - 99 % Ymadtwrwipy-EPK-Wfo 22.9 21 - 28 MMOL/L Specimen Performing Laboratory Blood, arterial - Blood [facility] MAIN [facility] [address] [place] [address] * O2 SATURATION, MIXED VENOUS (03/20/2018 4:00 AM) Component Value Ref Range F3Zpw-Ukjet Venous 78.2 % Specimen Performing Laboratory Blood [facility] MAIN [facility] [address] [place] [address] * MAGNESIUM (03/20/2018 4:00 AM) Component Value Ref Range Magnesium 2.0 1.6 - 2.6 mg/dL Specimen Performing Laboratory Blood MAIN LAB [address] [place] [address] * COMPREHENSIVE METABOLIC PANEL (03/20/2018 4:00 AM) [...] Specimen Performing Laboratory Blood MAIN LAB [address] [place] [address] * LACTIC ACID(LACTATE) (03/20/2018 4:00 AM) Component Value Ref Range Lactic Acid 1.1 0.5 - 2.0 MMOL/L Specimen Performing Laboratory Blood MAIN LAB [address] [place] [address] * CBC (03/20/2018 4:00 AM) Component Value [...] [place] Specimen Performing Laboratory Blood MAIN LAB [address] [place] [address] 27967 * PTT (APTT) (03/20/2018 12:45 AM) Component Value Ref Range APTT 84.2 (H) 21.0 - 39.0 SEC Specimen Performing Laboratory Blood MAIN LAB [address] [place] [address] 66513 * BLOOD GASES, ARTERIAL (03/20/2018 12:44 AM) Component Value Ref Range pH-Arterial 7.45 7.35 - 7.45 pCO2-Arterial 29 (L) 35 - 45 MMHG pO2-Arterial 105 (H) 80 - 100 MMHG Base Deficit-Arterial 2.1 MMOL/L O2 Sat-Arterial 98.6 95 - 99 % Vvetsgfewsc-FLK-Qxk 22.6 21 - 28 MMOL/L Specimen Performing Laboratory Blood, arterial - Blood MAIN LAB [address] [place] [address] 91366 * CULTURE-BLOOD W/SENSITIVITY (03/19/2018 11:34 PM) Component Value Ref Range Battery Name BLOOD CULTURE Specimen Description BLOOD RIGHT WRIST Special Requests NONE Culture NO GROWTH 5 DAYS Report Status FINAL 03/26/2018 Specimen Performing Laboratory Blood MAIN LAB [address] [place] [address] 24187 * BLOOD GASES, ARTERIAL (03/19/2018 11:25 PM) Component Value Ref Range pH-Arterial 7.45 7.35 - 7.45 pCO2-Arterial 28 (L) 35 - 45 MMHG pO2-Arterial 122 (H) 80 - 100 MMHG Base Deficit-Arterial 3.1 MMOL/L O2 Sat-Arterial 98.9 95 - 99 % Yuqemjruimi-FRF-Wgb 21.9 21 - 28 MMOL/L Specimen Performing Laboratory Blood, arterial - Blood MAIN LAB [address] [place] [address] 95121 * O2 SATURATION, MIXED VENOUS (03/19/2018 11:25 PM) Component Value Ref Range Y1Jth-Tjrkg Venous 58.7 % Specimen Performing Laboratory Blood MAIN LAB [address] [place] [id number] * POC BLOOD GAS ARTERIAL (03/19/2018 10:30 PM) Component Value Ref Range PH-ART-POC 7.41 7.35 - 7.45 BGW7-HCH-AHV 31 (L) 35 - 45 MMHG PO2-ART-POC 81 80 - 100 MMHG Base Def-ART-POC 5.0 MMOL/L O2 Sat-ART-POC 96.0 95 - 99 % Ezgomlnlkvf-QPX-GCN 19.6 (L) 21 - 28 MMOL/L Specimen Performing Laboratory MAIN LAB [address] [place], [place] [id number] * POC GLUCOSE (03/19/2018 9:38 PM) Component Value Ref Range Glucose, POC 230 (H) 70 - 100 MG/DL Specimen Performing Laboratory MAIN LAB [address] [place], [place] [id number] * MAGNESIUM (03/19/2018 9:31 PM) Component Value Ref Range Magnesium 2.1 1.6 - 2.6 mg/dL Specimen Performing Laboratory Blood MAIN LAB [address] [place] [id number] * COMPREHENSIVE METABOLIC PANEL (03/19/2018 9:31 PM) [...] Specimen Performing Laboratory Blood MAIN LAB [address] [place] [address] * POC GLUCOSE (03/19/2018 6:01 PM) Component Value Ref Range Glucose, POC 218 (H) 70 - 100 MG/DL Specimen Performing Laboratory MAIN LAB [address] [place] [address] * CARDIAC CATH REPORT (03/19/2018 5:02 PM) Specimen Performing Laboratory OTHER OUTSIDE LAB Procedure Note Ila Gray MD - 03/19/2018 5:02 PM CDT [facility] at [facility] CARDIAC CATHETERIZATION REPORT Page 2 FARHEEN Stovall : 1950 #: [id number] MR #/Billing ID #: [id number] / [id number] DATE: 03/19/2018 LAW SECRETARY: Ila Gray MD DICTATING PROVIDER: Kristian Caputo MD REFERRING PHYSICIAN: INTERVENTIONAL ARCHITECTURAL ENGINEER: Kristian Caputo MD PROCEDURES PERFORMED: 1. Left IJ ultrasound-guided venous access. 2. Left IJ central line placement. 3. Right IJ 8-Tongan Fast-Cath venous access. 4. Right heart catheterization. [...] PROCEDURE: The patient was brought into the rn cardiac cath intubated and deeply sedated. We then noticed [...] right IJ central venous catheter for an 8-Tongan Fast-Cath. Following this, we introduced a 7.5-Tongan Almont-Mikel catheter which was serially advanced into the [...] THE ENDOMYOCARDIAL BIOPSY: We then introduced a 7-Tongan bioptome through the 8-Tongan venous sheath under fluoroscopic guidance in the AP and ENGLISH projections. We obtained a total of 3 [...] and subsequently transferred her out of the rn cardiac cath. Dr. Gray was scrubbed and performed fall portions of the procedure, and supervised the rest of it as well. The Almont was left at 54 cm at the level of the hub. She will be transported to the ICU for further inotropic and diuretic management. FINAL IMPRESSION: 1. Severely reduced cardiac index with very high filling pressures. 2. Moderate pulmonary hypertension, as outlined above. 3. Continued inotropic and diuretic support per the Heart Failure Team in the ICU. Ila Gray MD PCG/MedQ /[id number] cc: * O2HGB SAT-VENOUS POC (03/19/2018 4:39 PM) Component Value Ref Range O2HGB SAT-Venous POC 66.0 55 - 71 % Specimen Performing Laboratory MAIN LAB [address] [place] [address] 70851 * SURGICAL PATHOLOGY (03/19/2018 4:36 PM) Component Value Ref Range PATHOLOGY REPORT [facility] [email or web address] Department of Pathology and Laboratory Medicine [address] [place] [address]017 Surgical Pathology Office:[phone]:[phone] SURGICAL PATHOLOGY REPORT NAME: FARHEEN GUTIERRES SURG PATH #: [id number] MR #: [id number] SPECIMEN CLASS: SR BILLING #: [id number] ALT ID #:LOCATION: [id number] DATE OF PROCEDURE: 03/19/2018 AGE:68 SEX: F DATE RECEIVED: 03/19/2018 : 1950TIME RECEIVED:16:36 PHYSICIAN: ALEM JONES DATE OF REPORT: 03/20/2018 COPY TO:DATE OF PRINTIN03/20/2018 ################################################## ###################### Final Diagnosis: A. Right ventricle ([place] endomyocardial biopsy): Myocardium with moderate fibrosis. See [...] 71 % Specimen Performing Laboratory MAIN LAB [address] [place] [address] * O2HGB SAT-VENOUS POC (03/19/2018 4:20 PM) Component Value Ref Range O2HGB SAT-Venous POC 64.1 55 - 71 % Specimen Performing Laboratory MAIN LAB [address] [place], [place] [id number] * MAGNESIUM (03/19/2018 1:55 PM) Component Value Ref Range Magnesium 2.3 1.6 - 2.6 mg/dL Specimen Performing Laboratory Blood MAIN LAB [address] [place] [address] * COMPREHENSIVE METABOLIC PANEL (03/19/2018 1:55 PM) [...] Specimen Performing Laboratory Blood [facility] MAIN [facility] [address] [place] [address] 90163 * POC GLUCOSE (03/19/2018 11:37 AM) Component Value Ref Range Glucose, POC 262 (H) 70 - 100 MG/DL Specimen Performing Laboratory MAIN LAB [address] [place] [address] 93922 * PTT (APTT) (03/19/2018 11:36 AM) Component Value Ref Range APTT 128.2 (H) 21.0 - 39.0 SEC Specimen Performing Laboratory Blood MAIN LAB [address] [place] [address] 55512 * LACTIC ACID(LACTATE) (03/19/2018 11:36 AM) Component Value Ref Range Lactic Acid 1.5 0.5 - 2.0 MMOL/L Specimen Performing Laboratory Blood MAIN LAB [address] [place] [address] * ABDOMEN AP ONLY (03/19/2018 11:24 AM) [...] right hemiabdomen are not included in the bjvvg-ta-ihfx this study. Thoracolumbar spondylosis again appreciated. Procedure [...] right hemiabdomen are not included in the hpiix-kq-rbcs this study. Thoracolumbar spondylosis again appreciated. IMPRESSION Advancement of gastric tube as noted above. Finalized by Masoud Dozier M.D. on 03/19/2018 12:10 PM. Dictated by Masoud Dozier M.D. on 03/19/2018 12:08 PM. * O2 SATURATION, MIXED VENOUS (03/19/2018 9:35 AM) Component Value Ref Range M4Mzj-Uuxkd Venous 60.5 % Specimen Performing Laboratory Blood [facility] MAIN LAB [address] [place] [address] * 2-D + DOPPLER ECHOCARDIOGRAM (03/19/2018 9:33 AM) Component Value Ref Range BSA 2.32 m2 CV ECHO PV [employer] TREVOR Werner LVIDD 5.5 3.8 - 5.2 [...] A Alisson 0.300 m/s Cardiology Ultrasound Siemens [id number] Machine Left Ventricle Mass Index 68.95 44 [...] Specimen Performing Laboratory Urine MAIN LAB [address] [place] [address] * RVP VIRAL PANEL PCR (03/19/2018 8:18 [...] Performing Laboratory Nasopharyngeal Swab MAIN LAB [address] [place] [address] * GRAM STAIN (03/19/2018 8:15 AM) Component Value Ref Range Battery Name GRAM STAIN Specimen Description SPUTUM Special Requests NONE Gram Stain GREATER THAN 25/LPF NEUTROPHILS LESS THAN 10/LPF SQUAMOUS EPITHELIAL CELLS FEW MIXED BACTERIA Report Status FINAL 03/19/2018 Specimen Performing Laboratory Sputum MAIN LAB [address] [place] [address] * CULTURE-RESP,LOWER W/SENSITIVITY (03/19/2018 8:15 AM) Component Value Ref Range Battery Name LOWER RESP CULTURE Specimen Description SPUTUM Special Requests NONE Direct Gram Stain GREATER THAN 25/LPF NEUTROPHILS LESS THAN 10/LPF SQUAMOUS EPITHELIAL CELLS FEW MIXED BACTERIA Culture Light growth NORMAL OROPHARYNGEAL REINIER Report Status FINAL 03/21/2018 Specimen Performing Laboratory Sputum MAIN LAB [address] [place] [address] * OSMOLALITY (03/19/2018 8:10 AM) Component Value Ref Range Osmolality 290 280 - 307 MOSMOL/KG Specimen Performing Laboratory Blood MAIN LAB [address] [place] [address] * CORTISOL,RANDOM (03/19/2018 8:10 AM) Component Value Ref Range Cortisol, Random 38.4 (H) 5.0 - 20.0 MCG/DL Specimen Performing Laboratory Blood MAIN LAB [address] [place] [address] * PTT (APTT) (03/19/2018 6:30 AM) Component Value Ref Range APTT 92.7 (H) 21.0 - 39.0 SEC Specimen Performing Laboratory Blood MAIN LAB [address] [place] [address] * BLOOD GASES, ARTERIAL (03/19/2018 4:20 AM) Component Value Ref Range pH-Arterial 7.35 7.35 - 7.45 pCO2-Arterial 37 35 - 45 MMHG pO2-Arterial 102 (H) 80 - 100 MMHG Base Deficit-Arterial 4.8 MMOL/L O2 Sat-Arterial 97.4 95 - 99 % Ohlptzkuqyk-FKI-Ndp 20.5 (L) 21 - 28 MMOL/L Specimen Performing Laboratory Blood, arterial - Blood MAIN LAB [address] [place] [address] * LACTIC ACID (BG - RAPID LACTATE) (03/19/2018 4:20 AM) Component Value Ref Range Lactic Acid,BG 2.0 0.5 - 2.0 MMOL/L Specimen Performing Laboratory Blood MAIN LAB [address] [place] [address] * HEMOGLOBIN A1C (03/19/2018 4:00 AM) Component Value Ref Range Hemoglobin A1C 6.6 (H) 4.0 - 6.0 % Comment: The ADA recommends that most patients with type 1 and type 2 diabetes maintain an A1c level <7%. Specimen Performing Laboratory Blood MAIN LAB [address] [place] [address] * LIPID PROFILE (03/19/2018 4:00 AM) Component [...] Specimen Performing Laboratory Blood MAIN LAB [address] [place] [address] * MAGNESIUM (03/19/2018 4:00 AM) Component Value Ref Range Magnesium 1.8 1.6 - 2.6 mg/dL Specimen Performing Laboratory Blood MAIN LAB [address] [place] [address] * COMPREHENSIVE METABOLIC PANEL (03/19/2018 4:00 AM) [...] Specimen Performing Laboratory Blood MAIN LAB [address] [place] [address] * CBC (03/19/2018 4:00 AM) Component Value [...] Specimen Performing Laboratory Blood MAIN LAB [address] [place] [address] * AEROBIC BACTERIA, SUSCEPT (03/19/2018 2:40 AM) Component Value Ref Range Aerobic Bacteria, Suscept FINAL 03/27/2018 1445 SOURCE: BLOOD, BLOOD, STREP MITIS/ORALIS GROUP SUSCEPTIBILITY, AEROBIC, KAREN FINAL STREPTOCOCCUS MITIS/ORALIS Organism identified by client. -------- Organism STREPTOCOCCUS MITIS/ORALIS AntibioticMIC (mcg/mL)Interpretation -------- Penicillin 1 I Cefepime <=0.5 S Ceftriaxone<=0.5 S Meropenem <=0.25 S Levofloxacin <=2 S Erythromycin>0.5 R Vancomycin <=1 S S=SUSCEPTIBLEI=INTERMEDIATER=RESISTANT N=NONSUSCEPTIBLED=SUSCEPTIBLE DOSE [facility] Specimen Performing Laboratory MAIN LAB [address] [place] [address] * CULTURE-BLOOD W/SENSITIVITY (03/19/2018 2:40 AM) Component Value Ref Range Battery Name BLOOD CULTURE Specimen Description BLOOD aerobic bottle only LEFT FA Special Requests NONE Culture POSITIVE SMEAR: GRAM POSITIVE COCCI RESEMBLING STREPTOCOCCI STREPTOCOCCUS MITIS/ORALIS GROUP (A) Report Status FINAL 03/21/2018 Organism ID STREPTOCOCCUS MITIS/ORALIS GROUP Specimen Performing Laboratory Blood MAIN LAB [address] [place] [id number] Organism Antibiotic Method Susceptibility Streptococcus Penicillin G [...] TO AND READ BACK BY/TIME/DEIDRE Armstrong at 2014 on 03.19.18 CB STREPTOCOCCUS MITIS/ORALIS GROUP See susceptibility on duplicate isolate GEMELLA HAEMOLYSANS , probable contaminant Report Status FINAL 03/22/2018 Specimen Performing Laboratory Blood MAIN LAB [address] [place] [address] * ABDOMEN AP ONLY (03/19/2018 2:30 AM) [...] (formerly Enterobacter) AEROGENES Specimen Performing Laboratory Urine [facility] MAIN LAB [address] [place] [address] Organism Antibiotic Method Susceptibility >100,000 organisms/ml Ampicillin [...] LABEL Specimen Performing Laboratory MAIN LAB [address] [place] [address] * URINALYSIS MICROSCOPIC REFLEX TO CULTURE (03/19/2018 1:55 AM) Component Value Ref Range WBCs,UA NONE 0 - 2 /HPF RBCs,UA NONE 0 - 3 /HPF Comment,UA Urine submitted for reflex culture if criteria are met:WBC>10, positive nitrite and/or >=1+ leukocyte esterase. If quantity is not sufficient, an addendum will follow. Specimen Performing Laboratory [facility] MAIN LAB [address] [place], [place] [id number] * URINALYSIS DIPSTICK REFLEX TO CULTURE (03/19/2018 1:55 AM) Component Value Ref Range Color,UA LUZ Turbidity,UA 2+ (A) CLEAR-CLEAR Specific [place]-Urine 1.020 1.003 - 1.035 pH,UA 5.0 5.0 - 8.0 Protein,UA 2+ (A) NEG-NEG Glucose,UA 1+ (A) NEG-NEG Ketones,UA NEG NEG-NEG Bilirubin,UA NEG NEG-NEG Blood,UA 3+ (A) NEG-NEG Urobilinogen,UA NORMAL NORM-NORMAL Nitrite,UA NEG NEG-NEG Leukocytes,UA 2+ (A) NEG-NEG Urine Ascorbic Acid, UA NEG NEG-NEG Specimen Performing Laboratory [facility] [address] [place] [address] * UREA NITROGEN-URINE RANDOM (03/19/2018 1:55 AM) Component Value Ref Range Urea Nitrogen 236 MG/DL Specimen Performing Laboratory Urine [facility] [address] [place] [address] * SODIUM-URINE RANDOM (03/19/2018 1:55 AM) Component Value Ref Range Sodium, Random 30 MMOL/L Specimen Performing Laboratory Urine [facility] [address] [place] [address] * CREATININE-URINE RANDOM (03/19/2018 1:55 AM) Component Value Ref Range Creatinine, Random 111 MG/DL Specimen Performing Laboratory Urine [facility] [address] [place] [address] * CHEST SINGLE VIEW (03/19/2018 1:34 AM) [...] diaphragm with the tip not in the texae-vu-wpad. Placement of an intra-aortic balloon pump catheter [...] diaphragm with the tip not in the gyyem-wl-jzhy. Placement of an intra-aortic balloon pump catheter [...] 2.0 MMOL/L Specimen Performing Laboratory MAIN LAB [address] [place] [address] * BLOOD GASES, ARTERIAL (03/19/2018 12:55 AM) Component Value Ref Range pH-Arterial 7.32 (L) 7.35 - 7.45 pCO2-Arterial 36 35 - 45 MMHG pO2-Arterial 195 (H) 80 - 100 MMHG Base Deficit-Arterial 6.5 MMOL/L O2 Sat-Arterial 99.4 (H) 95 - 99 % Evhmljxykqq-FBA-Rha 19.2 (L) 21 - 28 MMOL/L Specimen Performing Laboratory Blood, arterial - Blood MAIN LAB [address] [place] [address] * LACTIC ACID (BG - RAPID LACTATE) (03/19/2018 12:30 AM) Component Value Ref Range Lactic Acid,BG 2.9 (H) 0.5 - 2.0 MMOL/L Specimen Performing Laboratory MAIN LAB [address] [place] [address] * PROCALCITONIN (03/19/2018 12:15 AM) Component Value Ref Range Procalcitonin 1.08 (H) <0.10 NG/ML Specimen Performing Laboratory MAIN LAB [address] [place] [address] * CREATINE KINASE-CPK (03/19/2018 12:15 AM) Component Value Ref Range Creatine Kinase 86 21 - 215 U/L Specimen Performing Laboratory [facility] [address] [place] [address] * FREE T4-FREE THYROXINE (03/19/2018 12:15 AM) Component Value Ref Range T4-Free 1.1 0.6 - 1.6 NG/DL Specimen Performing Laboratory MAIN LAB [address] [place] [address] * TROPONIN-I (03/19/2018 12:15 AM) Component Value Ref Range Troponin-I 0.02 0.0 - 0.05 NG/ML Specimen Performing Laboratory Blood [facility] [address] [place] [address] * TSH WITH FREE T4 REFLEX (03/19/2018 12:15 AM) Component Value Ref Range TSH 6.450 (H) 0.35 - 5.00 MCU/ML Specimen Performing Laboratory Blood MAIN LAB [address] [place] [id number] * BNP (B-TYPE NATRIURETIC PEPTI) (03/19/2018 12:15 AM) Component Value Ref Range B Type Natriuretic 350.0 (H) 0 - 100 PG/ML Peptide Specimen Performing Laboratory Blood MAIN LAB [address] [place] [address] * MAGNESIUM (03/19/2018 12:15 AM) Component Value Ref Range Magnesium 1.6 1.6 - 2.6 mg/dL Specimen Performing Laboratory Blood MAIN LAB [address] [place] [address] * COMPREHENSIVE METABOLIC PANEL (03/19/2018 12:15 AM) [...] Specimen Performing Laboratory Blood MAIN LAB [address] [place] [id number] * PROTIME INR (PT) (03/19/2018 12:15 AM) Component Value Ref Range INR 1.9 (H) 0.8 - 1.2 Specimen Performing Laboratory Blood MAIN LAB [address] [place] [address] * PTT (APTT) (03/19/2018 12:15 AM) Component Value Ref Range APTT 29.4 21.0 - 39.0 SEC Specimen Performing Laboratory Blood [facility] MAIN LAB [address] [place] [address] * CBC AND DIFF (03/19/2018 12:15 AM) [...] Specimen Performing Laboratory Blood MAIN LAB [address] [place] [address] * GENERAL RAD CHEST EXTERNAL IMAGING (03/18/2018) [...] , administer 4 units insulin, at , 03* administer 2 units. -POC glucose 221-260mg/dL [...] , administer 12 units insulin, at , * [...]
--- OUTSIDE RECORDS SUMMARY | 2018-04-03 14:20 | XMS REPORT | Encounter Summary ---
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 Take with food. hydroCHLOROthiazide Take 50 mg by mouth every 04/03/2018 (HYDRODIURIL) 50 mg morning. tablet simvastatin (ZOCOR) 40 mg Take 40 mg by mouth at 04/03/2018 tablet bedtime daily. as of this encounter Plan of Treatment Not on fileas of this encounter Procedures Procedure Name Priority Date/Time Associated Diagnosis Comments ECG-SCAN 03/24/2018 Results for this 4:40 PM CDT procedure are in the results section. ECG-SCAN 03/22/2018 Results for this 10:25 AM CDT procedure are in the results section. ECG-SCAN 03/22/2018 Results for this 10:25 AM CDT procedure are in the results section. in this encounter Results * ECG-SCAN (03/24/2018 4:40 PM) Narrative Ordered by an unspecified provider. * ECG-SCAN (03/22/2018 10:25 AM) Narrative Ordered by an unspecified provider. * ECG-SCAN (03/22/2018 10:25 AM) Narrative Ordered by an unspecified provider. in this encounter Visit Diagnoses Not on filein this encounter
--- OUTSIDE RECORDS SUMMARY | 2018-04-03 14:21 | XMS REPORT | Continuity of Care Document ---
Author Author [facility] Organization [facility] Address Unknown Phone Unavailable Allergies Active Description Code Type Severity Reaction Onset Reported/Identified Relationship to Patient Clinical Status Yes LATEX [id number] ENVIRONMENTAL N/ A HIVES Yes PCN (penicillin) 95336633 CLASS N/A SNYCOPE Yes SOY [id number] FOOD N/A HIVES Yes LATEX MODERATE OTHER Yes PENICILLIN G SODIUM MILD OTHER Yes SOY MILD OTHER Yes SULFA (SULFONAMIDE ANTIBIOTICS) MILD DERMATOLOGICAL - HILARY Yes latex [id number] Drug Allergy Moderate HIVES 04/13/2009 Yes Penicillins [id number] Drug Allergy Mild "I GO TO SLEEP" 04/13/2009 Medications Medication Packaging Start Date Stop Date Route Dosage Sig NORMAL SALINE 1000CC IV BAG INJ 0.9 % (NS 1000CC IV BAG) ml 06/29/2017 06/30/2017 CONTINUOUSEVERY 0 Hour D5 NORMAL SALINE 500CC INJ (D5NS 500CC IV BAG) ml 03/17/2018 03/17/2018 ONCE&1655 NORMAL SALINE 1000CC IV BAG INJ 0.9 % (NS 1000CC IV BAG) ml 03/17/2018 03/17/2018 ONCE&1710 Normal SALINE 0.9 % (NS 100cc) (plain bag) ml 03/17/2018 03/17/2018 ONCE&1747 DILTIAZEM BOLUS VIAL INJ 25 MG/5CC (CARDIZEM BOLUS VIAL) MG 03/17/2018 03/17/2018 ONCE&1747 Problems Date Dx Coded Attending Type Code Diagnosis Diagnosed By 11/02/2014 BREEZY MASCORRO MD Ot 793.89 11/02/2014 BREEZY MASCORRO MD Ot V76.12 12/01/2014 BREEZY MASCORRO MD Ot 793.89 12/01/2014 BREEZY MASCORRO MD, Ot V76.12 12/24/2014 BREEZY MASCORRO MD Ot 610.0 10/29/2015 BREEZY MASCORRO MD, Ot Z12.31 01/04/2017 BREEZY MASCORRO MD, Ot 793.89 OTH (ABN) FINDINGS ON RADIOLOGICAL EXAMI 01/04/2017 BREEZY MASCORRO MD, Ot V76.12 OTH SCREEN MAMMO-MALIGN NEOPLASM OF URSULA 01/04/2017 BREEZY MASCORRO MD, Ot 610.0 SOLITARY CYST OF BREAST 01/04/2017 BREEZY MASCORRO MD, Ot Z12.31 ENCNTR SCREEN MAMMOGRAM FOR MALIGNANT NE 01/09/2017 BREEZY MASCORRO MD, Ot Z12.31 ENCNTR SCREEN MAMMOGRAM FOR MALIGNANT NE 01/25/2017 BREEZY MASCORRO MD, Ot Z12.31 ENCNTR SCREEN MAMMOGRAM FOR MALIGNANT NE 06/29/2017 Ace Myers A 214.1 LIPOMA OF OTHER SKIN AND SUBCUTANEOUS TISSUE 06/29/2017 Ace Myers D17.1 BENIGN LIPOMATOUS NEOPLASM OF SKIN, SUBCU OF TRUNK 10/23/2017 OSEAS MCMULLEN 715.11 OSTEOARTHROSIS, LOCALIZED, PRIMARY, INVOLVING SHOULDER REGION 10/23/2017 OSEAS MCMULLEN M19.012 PRIMARY OSTEOARTHRITIS, LEFT SHOULDER 10/25/2017 Miryam Eastman W 250.00 DIABETES MELLITUS WITHOUT MENTION OF COMPLICATION, TYPE II OR UNSPECIFIED TYPE, NOT STATED UNCONTROLLED 10/25/2017 Miryam Eastman E11.9 TYPE 2 DIABETES MELLITUS WITHOUT COMPLICATIONS 10/25/2017 Miryam Eastman W 250.00 DIABETES MELLITUS WITHOUT MENTION OF COMPLICATION, TYPE II OR UNSPECIFIED TYPE, NOT STATED UNCONTROLLED 10/25/2017 Miryam Eastman W 272.8 OTHER DISORDERS OF LIPOID METABOLISM 10/25/2017 Miryam Eastman W E11.9 TYPE 2 DIABETES MELLITUS WITHOUT COMPLICATIONS 10/25/2017 Miryam Eastman E78.5 HYPERLIPIDEMIA, UNSPECIFIED 10/25/2017 Miryam Eastman W 244.9 UNSPECIFIED HYPOTHYROIDISM 10/25/2017 Miryam Eastman W 250.00 DIABETES MELLITUS WITHOUT MENTION OF COMPLICATION, TYPE II OR UNSPECIFIED TYPE, NOT STATED UNCONTROLLED 10/25/2017 Miryam Eastman W 272.8 OTHER DISORDERS OF LIPOID METABOLISM 10/25/2017 Miryam Eastman 401.9 UNSPECIFIED ESSENTIAL HYPERTENSION 10/25/2017 Miryam Eastman E03.9 HYPOTHYROIDISM, UNSPECIFIED 10/25/2017 Miryam Eastman E11.9 TYPE 2 DIABETES MELLITUS WITHOUT COMPLICATIONS 10/25/2017 Miryam Eastman E78.5 HYPERLIPIDEMIA, UNSPECIFIED 10/25/2017 Miryam Eastman I10 ESSENTIAL (PRIMARY) HYPERTENSION 11/22/2017 S E039 Hypothyroidism , unspecified 11/22/2017 S E1165 Type 2 diabetes mellitus with hyperglycemia 11/22/2017 S E6601 Morbid (severe ) obesity due to excess calories 11/22/2017 S I10 Essential ( primary) hypertension 11/22/2017 S L299 Pruritus, unspecified 11/22/2017 P [id number] Primary osteoarthritis, left shoulder 11/22/2017 S Z6841 Body mass index (BMI) 40.0-44.9, adult 11/22/2017 S 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 11/22/2017 S [id number] Other 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11 OSTEOARTHROSIS, LOCALIZED, PRIMARY, INVOLVING SHOULDER REGION 02/13/2018 CUCO TALAVERA M19.012 PRIMARY OSTEOARTHRITIS, LEFT SHOULDER 02/13/2018 CUCO TALAVERA V43.61 SHOULDER JOINT REPLACED BY OTHER MEANS 02/13/2018 CUCO TALAVERA V54.81 AFTERCARE FOLLOWING JOINT REPLACEMENT 02/13/2018 CUCO TALAVERA Z47.1 AFTERCARE FOLLOWING JOINT REPLACEMENT SURGERY 02/13/2018 CUCO TALAVERA W 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 02/20/2018 SUBHA GARRETT, BREEZY Douglass Ot Z12.31 ENCNTR SCREEN MAMMOGRAM FOR MALIGNANT NE 03/17/2018 Drew Perez 244.9 UNSPECIFIED HYPOTHYROIDISM 03/17/2018 Drew Perez 250.00 DIABETES MELLITUS WITHOUT MENTION OF COMPLICATION, TYPE II OR UNSPECIFIED TYPE, NOT STATED UNCONTROLLED 03/17/2018 Drew Perez 276.1 03/17/2018 Drew Perez 401.0 MALIGNANT ESSENTIAL HYPERTENSION 03/17/2018 Drew Perez 427.31 ATRIAL FIBRILLATION 03/17/2018 Drew Perez E03.9 HYPOTHYROIDISM, UNSPECIFIED 03/17/2018 Drew Perez E11.9 TYPE 2 DIABETES MELLITUS WITHOUT COMPLICATIONS 03/17/2018 Drew Perez E87.1 HYPO-OSMOLALITY AND HYPONATREMIA 03/17/2018 Drew Perez I10 ESSENTIAL (PRIMARY) HYPERTENSION 03/17/2018 Drew Perez I48.91 UNSPECIFIED ATRIAL FIBRILLATION 03/18/2018 HUGH BARFIELD MD Ot E87.1 HYPO-OSMOLALITY AND HYPONATREMIA 03/18/2018 HUGH BARFIELD MD Ot I48.0 PAROXYSMAL ATRIAL FIBRILLATION 03/18/2018 HUGH BARFIELD MD Ot E87.1 HYPO-OSMOLALITY AND HYPONATREMIA 03/18/2018 HUGH BARFIELD MD Ot I48.0 PAROXYSMAL ATRIAL FIBRILLATION 03/18/2018 HUGH BARFIELD MD Ot E87.1 HYPO-OSMOLALITY AND HYPONATREMIA 03/18/2018 HUGH BARFIELD MD Ot I48.0 PAROXYSMAL ATRIAL FIBRILLATION 03/18/2018 HUGH BARFIELD MD Ot E11.9 TYPE 2 DIABETES MELLITUS WITHOUT COMPLIC 03/18/2018 HUGH BARFIELD MD Ot E78.5 HYPERLIPIDEMIA, UNSPECIFIED 03/18/2018 HUGH BARFIELD MD Ot E87.1 HYPO-OSMOLALITY AND HYPONATREMIA 03/18/2018 HUGH BARFIELD MD Ot I11.0 HYPERTENSIVE HEART DISEASE WITH HEART FA 03/18/2018 HUGH BARFIELD MD Ot I48.0 PAROXYSMAL ATRIAL FIBRILLATION 03/18/2018 HUGH BARFIELD MD Ot I50.21 ACUTE SYSTOLIC (CONGESTIVE) HEART FAILUR 03/18/2018 HUGH BARFIELD MD Ot J96.00 ACUTE RESPIRATORY FAILURE, UNSP W HYPOXI 03/18/2018 HUGH BARFIELD MD Ot 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 03/18/2018 HUGH BARFIELD MD Ot Z87.891 PERSONAL HISTORY OF NICOTINE DEPENDENCE Procedures Code Description Performed By Performed On [id number] Replacement of Left Shoulder Joint with Reverse Ball and Socket Synthetic Substitute, Open Approach 11/20/2017 [id number] ASSIST WITH CARDIAC OUTPUT USING BALLOON 03/18/2018 [id number] RESPIRATORY VENTILATION, LESS THAN 24 CO 03/18/2018 [id number] FLUOROSCOPY OF LEFT HEART USING LOW OSMO 03/18/2018 Results Test Result Range CBC with Auto Diff - 11/07/16 10:48 Baso% 0.50 % 0.00-2.50 Eos 0.3 K/uL 0.0-0.7 Eos% 5.5 % 0.0-7.0 Hct 44.9 % 36.0-46.0 Hgb 14.4 g/dL 13.0-15.0 Lym 1.21 K/uL 0.60-3.40 Lym% 19.5 % 10.0-50.0 MCH 28.9 pg 27.0-31.0 MCHC 32.1 g/dL 32.0-36.0 MCV 90.2 fL 80.0-97.0 Fallon% 7.3 % 0.0-12.0 MPV 12.2 fL 7.4-10.0 Turner% 67.2 % 37.0-80.0 Plt 183 K/uL 150-400 RBC 4.98 M/uL 3.60-5.00 RDW 14.3 % 11.6-14.8 WBC 6.19 K/uL 5.00-10.00 Turner 4.16 K/uL 2.00-6.90 Fallon 0.5 K/uL 0.0-0.9 Baso 0.0 K/uL 0.0-0.2 Creatinine - 05/23/17 09:49 Creat 1.01 mg/dL 0.50-1.50 eGFR 55 mL/min/1.73m2 >59 Renal Panel - 06/13/17 08:59 Albumin 4.2 g/dL 3.6-5.1 BUN 17 mg/dL 5-25 Calcium 10.1 mg/dL 8.3-10.4 Chloride 97 mmol/L 95-114 CO2 28 mEq/L 22-33 Creat 1.02 mg/dL 0.50-1.50 eGFR 54 mL/min/1.73m2 >59 Glucose 195 mg/dL 70-110 Phosphorus 4.4 mg/dL 2.5-4.8 Potassium 4.1 mmol/L 3.5-5.3 Sodium 137 mmol/L 134-148 Comprehensive Metabolic Panel - 06/26/17 12:41 Albumin 4.1 g/dL 3.6-5.1 ALP 36 U/L 35-130 ALT 12 U/L 6-45 Anion Gap 19 6-14 AST 12 U/L 2-40 BUN 22 mg/dL 5-25 Calcium 9.9 mg/dL 8.3-10.4 Chloride 99 mmol/L 95-114 CO2 25 mEq/L 22-33 Creat 0.99 mg/dL 0.50-1.50 eGFR 56 mL/min/1.73m2 >59 Globulin 2.6 g/dL 2.3-3.5 Glucose 116 mg/dL 70-110 Osmo 289 280-295 Potassium 4.7 mmol/L 3.5-5.3 Sodium 138 mmol/L 134-148 TBil 0.7 mg/dL 0.2-1.2 TP 6.7 g/dL 6.0-8.3 MRSA Screen - 06/26/17 12:41 FINAL CULTURE RESULTS MRSA Negative Nasal Culture MEDIA PLATED Setup at 13:54 on 06/26/2017 Surgical Pathology - 06/29/17 13:27 Surg Path Sent to [facility] Thyroid Stimulating Hormone - 10/25/17 10:30 TSH 2.01 mIU/mL 0.32-5.00 Hemoglobin A1C - 10/31/17 16:52 % A1C 6.60 % 5.40-6.60 AvGlu 159 mg/dL 70-110 BNP - 03/17/18 17:13 BNP 324.80 pg/ml 0.00-100.00 Lactic Acid - 03/17/18 18:45 Lactic Acid 14.0 mg/dL 4.5-19.8 Blood Culture - 03/17/18 18:45 PRELIM CULTURE RESULTS Blood Culture Negative, No Growth Day 1 FINAL CULTURE RESULTS Blood Culture Negative, No Growth Day 5 CULTURE SOURCE LEFT [id number] Blood Culture - 03/17/18 18:50 PRELIM CULTURE RESULTS Blood Culture Negative, No Growth Day 1 FINAL CULTURE RESULTS Blood Culture Negative, No Growth Day 5 CULTURE SOURCE LEFT [id number] Methicillin resistant Staphylococcus aureus (MRSA) screening culture - 21:00 Methicillin resistant Staphylococcus aureus (MRSA) screening culture NEG NRG Capillary blood glucose measurement by glucometer (mass/volume) - 03/17/18 21: 38 Capillary blood glucose measurement by glucometer (mass/volume) 83 mg/dL 70-110 Complete blood count (CBC) with automated white blood cell (WBC) differential - 03/18/18 03:15 Blood leukocytes automated count (number/volume) 9.3 10*3/uL 4.3-11.0 Blood erythrocytes automated count (number/volume) 4.99 10*6/uL 4.35-5.85 Venous blood hemoglobin measurement (mass/volume) 14.1 g/dL 11.5-16.0 Blood hematocrit (volume fraction) 41 % 35-52 Automated erythrocyte mean corpuscular volume 83 [foz_us] 80-99 Automated erythrocyte mean corpuscular hemoglobin (mass per erythrocyte) 28 pg 25-34 Automated erythrocyte mean corpuscular hemoglobin concentration measurement ( mass/volume) 34 g/dL 32-36 Automated erythrocyte distribution width ratio 15.9 % 10.0-14.5 Automated blood platelet count (count/volume) 216 10*3/uL 130-400 Automated blood platelet mean volume measurement 11.6 [foz_us] 7.4-10.4 Automated blood neutrophils/100 leukocytes 85 % 42-75 Automated blood lymphocytes/100 leukocytes 7 % 12-44 Blood monocytes/100 leukocytes 7 % 0-12 Automated blood eosinophils/100 leukocytes 1 % 0-10 Automated blood basophils/100 leukocytes 0 % 0-10 Blood neutrophils automated count (number/volume) 7.9 10*3 1.8-7.8 Blood lymphocytes automated count (number/volume) 0.7 10*3 1.0-4.0 Blood monocytes automated count (number/volume) 0.7 10*3 0.0-1.0 Automated eosinophil count 0.1 10*3/uL 0.0-0.3 Automated blood basophil count (count/volume) 0.0 10*3/uL 0.0-0.1 Comprehensive metabolic panel - 03/18/18 03:15 Serum or plasma sodium measurement (moles/volume) 124 mmol/L 135-145 Serum or plasma potassium measurement (moles/volume) 5.1 mmol/L 3.6-5.0 Serum or plasma chloride measurement (moles/volume) 92 mmol/L 98-107 Carbon dioxide 18 mmol/L 21-32 Serum or plasma anion gap determination (moles/volume) 14 mmol/L 5-14 Serum or plasma urea nitrogen measurement (mass/volume) 41 mg/dL 7-18 Serum or plasma creatinine measurement (mass/volume) 1.37 mg/dL 0.60-1.30 Serum or plasma urea nitrogen/creatinine mass ratio 30 NRG Serum or plasma creatinine measurement with calculation of estimated glomerular filtration rate 39 NRG Serum or plasma glucose measurement (mass/volume) 165 mg/dL 70-105 Serum or plasma calcium measurement (mass/volume) 8.7 mg/dL 8.5-10.1 Serum or plasma total bilirubin measurement (mass/volume) 0.9 mg/dL 0.1-1.0 Serum or plasma alkaline phosphatase measurement (enzymatic activity/volume) 46 U/L 40-136 Serum or plasma aspartate aminotransferase measurement (enzymatic activity/ volume) 50 U/L 5-34 Serum or plasma alanine aminotransferase measurement (enzymatic activity/volume ) 33 U/L 0-55 Serum or plasma protein measurement (mass/volume) 6.7 g/dL 6.4-8.2 Serum or plasma albumin measurement (mass/volume) 3.8 g/dL 3.2-4.5 Serum or plasma phosphate measurement (mass/volume) - 03/18/18 03:15 Serum or plasma phosphate measurement (mass/volume) 5.0 mg/dL 2.3-4.7 Magnesium - 03/18/18 03:15 Magnesium 2.8 mg/dL 1.8-2.4 PT panel in platelet poor plasma by coagulation assay - 03/18/18 03:15 Prothrombin time (PT) in platelet poor plasma by coagulation assay 16.3 s 12.2-14.7 INR in platelet poor plasma or blood by coagulation assay 1.3 0.8-1.4 Serum or plasma sodium measurement (moles/volume) - 03/18/18 08:10 Serum or plasma sodium measurement (moles/volume) 124 mmol/L 135-145 Blood lactic acid measurement (moles/volume) - 03/18/18 10:04 Blood lactic acid measurement (moles/volume) 1.73 mmol/L 0.50-2.00 Capillary blood glucose measurement by glucometer (mass/volume) - 03/18/18 10: 37 Capillary blood glucose measurement by glucometer (mass/volume) 195 mg/dL 70-110 Serum or plasma sodium measurement (moles/volume) - 03/18/18 12:05 Serum or plasma sodium measurement (moles/volume) 123 mmol/L 135-145 Sputum Gram stain - 03/18/18 13:27 GRAM STAIN SPUTUM AND MIXED BACTERIAL REINIER NRG Bacterial sputum culture - 03/18/18 13:27 QUANTITY OF GROWTH Moderate Growth NRG Bacterial sputum culture [id number] NRG Arterial blood gas measurement - 03/18/18 13:50 Blood pCO2 36 mm[Hg] 35-45 Blood pO2 78 mm[Hg] 79-93 Arterial blood bicarbonate measurement (moles/volume) 16 mmol/L 23-27 Arterial blood base excess by calculation -9.5 mmol/L - 2.5-2.5 Arterial blood oxygen saturation measurement 92 % 94-100 * Inhaled oxygen flow rate 60% NRG Arterial blood pH measurement with patient temperature correction 7.27 7.37-7.43 Arterial blood carbon dioxide, total measurement (moles/volume) 17.5 mmol/L 21.0-31.0 Body site ART LINE NRG Assessment of wrist artery patency prior to arterial puncture ART LINE NRG Setting of ventilation mode YES NRG Measurement of body temperature 96.7 NRG Arterial blood gas measurement - 03/18/18 17:04 Blood pCO2 38 mm[Hg] 35-45 Blood pO2 78 mm[Hg] 79-93 Arterial blood bicarbonate measurement (moles/volume) 19 mmol/L 23-27 Arterial blood base excess by calculation -6.8 mmol/L - 2.5-2.5 Arterial blood oxygen saturation measurement 93 % 94-100 * Inhaled oxygen flow rate 60% NRG Arterial blood pH measurement with patient temperature correction 7.31 7.37-7.43 Arterial blood carbon dioxide, total measurement (moles/volume) 19.8 mmol/L 21.0-31.0 Body site ARTLINE NRG Assessment of wrist artery patency prior to arterial puncture NA NRG Setting of ventilation mode YES NRG Measurement of body temperature 96.4 NRG Encounters ACCT No. Visit Date/Time Discharge Status Pt. Type Provider Facility Loc./Unit Complaint [id number] 03/17/2018 19:50:00 03/18/2018 22:22:00 DIS Inpatient HUGH BARFIELD MD [facility] ICU AFIB W/ RVR [id number] 02/19/2018 10:04:00 02/19/2018 23:59:59 CLS Outpatient BREEZY MASCORRO MD [facility] RAD ROUTINE SCREENING [id number] 01/04/2017 10:55:00 01/04/2017 23:59:59 CLS Outpatient BREEZY MASCORRO MD [facility] RAD SCREENING [id number] 10/12/2015 14:06:00 10/12/2015 23:59:59 CLS Outpatient BREEZY MASCORRO MD [facility] RAD ROUTINE SCREENING [id number] 12/01/2014 11:32:00 12/01/2014 23:59:59 CLS Outpatient BREEZY MASCORRO MD [facility] RAD ABNORMAL MAMMO [id number] 10/08/2014 10:23:00 10/08/2014 23:59:59 CLS Outpatient BREEZY MASCORRO MD [facility] RAD SCREENING [id number] 09/30/2013 10:31:00 09/30/2013 23:59:59 CLS Outpatient [id number] 03/17/2018 16:54:00 03/17/2018 19:20:00 DIS Outpatient [facility] [id number] 11/23/2017 12:20:00 02/13/2018 11:46:00 DIS Outpatient CUCO TALAVERA [id number] 10/31/2017 00:00:00 10/31/2017 23:59:00 DIS Outpatient Miryam Eastman [id number] 10/25/2017 11:54:00 10/25/2017 23:59:00 DIS Outpatient Miryam Eastman [id number] 09/11/2017 13:28:00 10/23/2017 14:54:00 DIS Outpatient OSEAS MCMULLEN [id number] 08/31/2017 10:36:00 08/31/2017 23:59:00 DIS Outpatient OSEAS MCMULLEN [id number] 06/29/2017 00:00:00 06/29/2017 14:57:00 DIS Outpatient Ace Myers [id number] 06/26/2017 12:12:00 06/26/2017 23:59:00 DIS Outpatient Ace Myers [id number] 06/13/2017 08:55:00 06/13/2017 23:59:00 DIS Outpatient Ace Myers [id number] 06/11/2017 08:06:00 06/11/2017 23:59:00 DIS Outpatient Nabor Myerswaqas [id number] 05/25/2017 10:58:00 05/25/2017 23:59:00 DIS Outpatient Ace Myers [id number] 05/23/2017 09:36:00 05/23/2017 23:59:00 DIS Outpatient Aixa Myersmaribel [id number] 05/21/2017 09:41:00 05/21/2017 23:59:00 DIS Outpatient Ace Myers [id number] 11/07/2016 10:43:00 11/07/2016 23:59:00 DIS Outpatient Miryam Eastman [id number] 06/29/2017 09:58:39 Document Registration [id number] 11/23/2017 12:01:53 11/23/2017 23:59:59 CLS Outpatient Symone Stephen [facility] 12/01/2014 11:33:49 ACT Document Registration [id number] 11/08/2017 06:58:38 Document Registration [id number] 11/06/2017 11:43:27 Document Registration
--- NOTE | 2018-04-03 14:39 | Physical Therapy Evaluation ---
PT Evaluation-General Medical Diagnosis Admission Date April 03, 2018 at 13:15 Medical Diagnosis: Acute respiratory failure/pacemaker Onset Date: March 27, 2018 Therapy Diagnosis Therapy Diagnosis: impaired mobility, strength, endurance Height/Weight Height (Feet): 5 Height (Inches): 0.00 Weight (Pounds): 247 Weight (Ounces): 0.0 Precautions Precautions/Isolations: Droplet Isolation Referral Physician: Sammy Reason for Referral: Evaluation/Treatment Social History Home: Single Level Current Living Status: Spouse Entry Into Home: Stairs With Railing PT Steps Into Home: 3 Prior/Core FIM Prior Level of Function Functional [place] Measure 0=Not Assessed/NA 4=Minimal Assistance 1=Total Assistance 5=Supervision or Setup 2=Maximal Assistance 6=Modified [place] 3=Moderate Assistance 7=Complete [place] Bed Mobility: 7 Transfers (B,C,W/C) (FIM): 7 Gait: 7 PT Evaluation-Current Subjective Patient in recliner pre tx, agrees to PT, no complaints of pain at rest, but she does say that she has pain in her chest in surgery area with activity. Pt/Family Goals "to get stronger and be able to go home and take care of herself" Objective Patient Orientation: Person, Place, Situation ROM/Strength ROM Lower Extremities WNL Strenght Lower Extremities 4/5 gross bilateral lower extremities, except for right hip flexion, patient apparently had an angioplasty or something similar in that area and has too much pain for right side hip strength testing Neuromuscular (Tone, Coordination, Reflexes) NT Sensory Vision: Wears Glasses Hearing: Functional Sensation Right Lower Extremit: Intact Sensation Left Lower Extremity: Intact Transfers Functional [place] Measure 0=Not Assessed/NA 4=Minimal Assistance 1=Total Assistance 5=Supervision or Setup 2=Maximal Assistance 6=Modified [place] 3=Moderate Assistance 7=Complete IndependenceIRFPAI Quality Coding Scale 6 Independent with activity with or without an assistive device 5 Patient requires set up or clean up by helper. Patient completes activity by themselves 4 Supervision or touching assist (CGA). [place] provide cues , steadying assist 3 The helper provides less than half the effort to complete the activity 2 The helper provides more than half the effort to complete the activity 1 Dependent. The helper does all the effort to complete an activity 7 Patient refused to complete or attempt activity 9 The patient did not perform the activity before the current illness or injury 88 Not attempted due to Medical conditions or safety concerns Transfers (B, C, W/C) (FIM): 4 Scootin Rollin Roll Left to Right (QC): 4 Supine to/from Sit: 4 Sit to/from Stand: 4 bed t/f WC(FIM only if WC use): 4 Sit to Lying (QC): 3 Lying to Sitting/Side of Bed(Q: 3 Sit to Stand (QC): 4 Chair/Lar-bh-Mieed Xfer(QC): 4 Car Transfer (QC): 4 Patient performs bed mobility with CGA, supine to sit with min assist, stand pivot transfer with CGA, sit to stand CGA, car transfer with CGA Gait Does the Patient Walk?: Yes Mode of Locomotion: Walk Anticipated Mode of Locomotion: Walk Gait (FIM): 2 Walk 10 feet (QC): 4 Walk 50 ft with 2 Turns(QC): 4 Walk 150 ft (QC): 88 Walking 10ft/uneven surface-QC: 4 Distance: 70'x4 Gait Level of Assist: 4 Gait Persons Needed: 1 Gait Assistive Device: FWW Comments/Gait Description Patient ambulates very slowly and needs cues for purse lip breathing and may take occasional standing rests breaks. Her O2 stays within normal limits. Wheelchair Training Does the Pt Use a Wheelchair?: No Stairs 1 Step (curb) (QC): 88 4 Steps (QC): 88 12 Steps (QC): 88 Not performed for safety concerns due to poor patient endurance. Balance Sitting Static: Normal Sitting Dynamic: Normal Standing Static: Fair Standing Dynamic: Fair Picking up an Object (QC): 88 Treatment seated exercises x20 (AP, LAQ, hip flexion) Assessment/Needs Patient has extremely poor endurance and she struggles to ambulate 70 feet, she ambulates very slowly and needs standing rest breaks. Rehab Potential: Fair PT Short Term Goals Short Term Goals Time Frame: April 10, 2018 Transfers (B,C,W/C) (FIM): 5 Gait (FIM): 4 Gait Distance Comment: 150' Gait Level of Assist: 4 Gait Assistive Device: FWW PT Chief Customer Officer Goals Chief Customer Officer Goals PT Care Home Goals Time Frame: April 24, 2018 Transfers (B,C,W/C) (FIM): 6 Sit to Lying (QC): 6 Lying-Sitting on Side/Bed(QC): 6 Sit to Stand (QC): 6 Rollin Roll Left to Right (QC): 6 Chair/Vjp-zh-Bfohu Xfer(QC): 6 Car Transfer (QC): 6 Gait (FIM): 5 Distance: 150' Walk 10 feet (QC): 4 Walk 10ft-Uneven Surface(QC): 4 Walk 50ft with 2 Turns (QC): 4 Walk 150 ft (QC): 4 Gait Level of Assist: 5 Gait Assistive Device: FWW Stairs (FIM): 2 # of Steps: 4 1 Step (curb) (QC): 4 4 Steps (QC): 4 Stairs Level Of Assist: 4 PT Plan Problem List Problem List: Activity Tolerance, Functional Strength, Safety, Balance, Gait, Transfer, Bed Mobility Treatment/Plan Treatment Plan: Continue Plan of Care Treatment Plan: Bed Mobility, Education, Functional Activity [place], Functional Strength, Group Therapy, Gait, Safety, Therapeutic Exercise, Transfers Treatment Duration: April 24, 2018 Frequency: At least 5 of 7 days/Wk (IRF) Estimated Hrs Per Day: 1.5 hours per day Patient and/or Family Agrees t: Yes Safety Risks/Education Patient Education: Gait Training, Transfer Techniques, Correct Positioning, Safety Issues Teaching Recipient: Patient Teaching Methods: Demonstration, Discussion Response to Teaching: Reinforcement Needed Discharge Recommendations Plan Patient will perform bed mobility and transfer training, balance and endurance training, functional strengthening, stair training, gait training, and education , to improve functional mobility and independence at home. Therapy D/C Recommendations: Home w/ Family Support Time/GCodes Time In: 1300 Time Out: 1430 Total Billed Treatment Time: 90 Total Billed Treatment 1 visit EVM 30' EX 15' FA 15' GT 30' BRETT DICKENS PT April 03, 2018 14:39
--- NOTE | 2018-04-03 15:45 | Occupational Therapy Eval ---
OT Evaluation-General/PLF Medical Diagnosis Admission Date April 03, 2018 at 13:15 Medical Diagnosis: Acute respiratory failure/pacemaker Onset Date: March 27, 2018 Therapy Diagnosis Therapy Diagnosis: Weakness Height/Weight Height (Feet): 5 Height (Inches): 0.00 Weight (Pounds): 247 Weight (Ounces): 0.0 Precautions Precautions/Isolations: Droplet Isolation Weight Bear Status Pacemaker precautions, no lifting higher than 90 degrees left UE, no lifting more than 5 lbs. Referral Physician: Sammy Referral Reason: Activity Tolerance, Self Care, Evaluation/Treatment, Strengthening/ROM Medical History Pertinent Medical History: HTN Additional Medical History Pulmonary edema, reverse total shoulder Left UE. Current History Pt. experienced heart attack. Pacemaker placed at [facility]. Reviewed History: Yes Social History Home: Single Level Current Living Status: Spouse Entry Into Home: Stairs With Railing Steps Into Home: 3 ADL-Prior Level of Function ADL PLOF Comments Pt. was independent with all basic self care skills. DME/Equipment: Tub/Shower DME/Equipment Comments Pt. does not have a walker or shower chair. Drive Self: Yes OT Current Status Subjective No pain reported. Pt. states that she is tired. Appearance Pt. is up in chair. Mental Status/Objective Patient Orientation: Person, Place Current Glasses/Contacts: Yes Dentures/Partials: Yes Hand Dominance: Left Upper Extremity ROM Pt. is only allowed to raise left UE to 90 degrees. States that she is supposed to have shoulder replacement on right UE. ADL-Treatment Functional [place] Measure 0=Not Assessed/NA 4=Minimal Assistance 1=Total Assistance 5=Supervision or Setup 2=Maximal Assistance 6=Modified [place] 3=Moderate Assistance 7=Complete IndependenceIRFPAI Quality Coding Scale 6 Independent with activity with or without an assistive device 5 Patient requires set up or clean up by helper. Patient completes activity by themselves 4 Supervision or touching assist (CGA). Steward provide cues , steadying assist 3 The helper provides less than half the effort to complete the activity 2 The helper provides more than half the effort to complete the activity 1 Dependent. The helper does all the effort to complete an activity 7 Patient refused to complete or attempt activity 9 The patient did not perform the activity before the current illness or injury 88 Not attempted due to Medical conditions or safety concerns Eating (FIM): 6 Eating (QC): 6 Lower Body Dressing (FIM): 3 Lower Body Dressing (QC): 3 On/Off Footwear (QC): 2 Transfers (B, C, W/C) (FIM): 4 (CGA sit-stand.) Other Treatments Pt. states that she has always has had difficulty getting socks and shoes on, but is able to do it. Pt. is educated on and issued adaptive equipment. Verbalizes understanding and states that she has a generator mechanic at home. Pt. is educated regarding inpatient rehab and goals. Verbalizes understanding. Education OT Patient Education: Modified ADL techniques, Progress toward Goal/Update tx plan, Purpose of tx/functional activities, Reviewed precautions, Rehab process, Transfer techniques, Use of adapted equipment Teaching Recipient: Patient Teaching Methods: Demonstration, Discussion Response to Teaching: Verbalize Understanding, Return Demonstration OT Short Term Goals Short Term Goals Transfers (B,C,W/C) (FIM): 5 1=Demonstrate adherence to instructed precautions during ADL tasks. 2=Patient will verbalize/demonstrate understanding of assistive devices/ modifications for ADL. 3=Patient will improve strength/tolerance for activity to enable patient to perform ADL's. OT Tube Winder Goals Halfway Goals Time Frame: April 17, 2018 Eating (FIM): 6 Eating (QC): 6 Groomin Oral Hygiene (QC): 6 Bathing(FIM): 5 Shower/Bathe Self (QC): 5 Upper Body Dressing(FIM): 6 Upper Body Dressing (QC): 6 Lower Body Dressing(FIM): 6 Lower Body Dressing (QC): 6 On/Off Footwear (QC): 6 Toileting(FIM): 6 Toileting Hygiene (QC): 6 Transfers (B,C,W/C) (FIM): 6 Toilet/Commode Transfer(FIM): 6 Toilet/Commode Transfer (QC): 6 Shower Transfer(FIM): 5 Additional Goals: 1-Demonstrate ADL Tasks, 2-Verbalize Understanding, 3- ImproveStrength/[place] 1=Demonstrate adherence to instructed precautions during ADL tasks. 2=Patient will verbalize/demonstrate understanding of assistive devices/ modifications for ADL. 3=Patient will improve strength/tolerance for activity to enable patient to perform ADL's. OT Education/Plan Problem List/Assessment Assessment: Decreased Activ Tolerance, Decreased UE Strength, Dependent Transfers, Impaired I ADL's, Impaired Self-Care Skills, Restricted Funct UE ROM Discharge Recommendations Plan/Recommendations: Continue POC Therapy D/C Recommendations: Home w/ Family Support, Occupational Therapy Home Care Equpiment Recommendations-D/C: Extended Bath Bench, Hip Kit Comment Pt. will likely need a walker. Treatment Plan/Plan of Care Treatment,Training & Education: Yes Patient would benefit from OT for education, treatment and training to promote independence in ADL's, mobility, safety and/or upper extremity function for ADL' s. Plan of Care: ADL Retraining, Functional Mobility, Group Exercise/Act as Ind, UE Funct Exercise/Act Treatment Duration: April 17, 2018 Frequency: At least 5 of 7 days/Wk (IRF) Estimated Hrs Per Day: 1.5 hours per day Agreement: Yes Rehab Potential: Good Time/GCodes Start Time: 14:30 Stop Time: 15:30 Total Time Billed (hr/min): 60 Billed Treatment Time 1, EVM x 15minutes, ADL x 15minutes, FA x 30minutes SHAR STEWART OT April 03, 2018 15:45
--- NOTE | 2018-04-03 16:03 | PM&R Post Admission Assessment ---
Post Admission Physician Asses Date seen by provider: April 03, 2018 Time seen by provider: 15:30 Admisison Dx: (1) PAF (paroxysmal atrial fibrillation) The preadmission screen agrees with the post admission assessment that the patient is a good candidate for inpatient rehabilitation. The patient will have a comprehensive program of inpatient rehabilitation with a goal of maximizing level of functional independence prior to discharge home with spouse. The patient will have PT/OT ninety minutes per day, each discipline, five days a week for 14 days for gait, strengthening, conditioning, balance, ADLs, any patient/family/caregiver training as necessary. Speech therapy to do cognitive assessment and treat as indicated. Rehabilitation nursing to assist with bowel, bladder, skin, wound care, medication administration, pain management. Bilingual Customer Service Specialist to assist with discharge planning, community reentry. SCD's for DVT prophylaxis. She appears to be well motivated to participate in three hours of therapy a day. She should be able to tolerate three hours of therapy a day from a medical standpoint. She should benefit from the three hours of therapy a day. She has a reasonable discharge plan, reasonable discharge rehabilitation goals and a supportive family. She has various comorbidities that need to be closely monitored with medications and treatments adjusted on a daily basis as needed. These include: HTN DM Nonischemic cardiomyopathy S/P pacemanker Barriers to discharge for this patient who had been independent prior to this are for her to be modified independent to supervision for ADLs and mobility skills prior to discharge home with spouse, so as to lessen the burden of the caregivers. Risks for this patient include: 1. Fall 2. Fracture 3. DVT 4. Pulmonary embolism 5. Wound infection 6. Skin breakdown 7. Contractures 8. Poorly controlled pain 9. Urinary retention 10. UTI 11. Respiratory infection 12. Aspiration 13, Recurrent A FIB 14. CHF 15. Hyponatremia Estimated Length of Stay: 14 days Prognosis: Rehab prognosis appears good for goal of discharge home with spouse modified independent to supervision for ADLs and mobility skills. General: Alert, Oriented X3, Cooperative, No Acute Distress HEENT: Atraumatic, PERRLA, EOMI, Mucous Memb Moist/[place] Neck: Supple, No JVD Lungs: Clear to Auscultation Heart: Regular Rate Abdomen: Normal Bowel Sounds, Soft, No Tenderness Extremities: No Edema Skin: Other (Pacemaker incision site healing well) Neuro: Other (Generalized weakness) DOUG MAX MD April 03, 2018 16:03
--- NOTE | 2018-04-03 16:04 | ST Cognitive Linguistic Eval ---
Speech Evaluation-General Medical Diagnosis Acute respiratory failure/pacemaker Onset Date: March 27, 2018 Therapy Diagnosis Therapy Diagnosis: Cognitive Linguistic Skills WNL Precautions Precautions/Isolations: Droplet Isolation Referral Referring Physician: Dr. Tejinder Christianson Reason for Referral: Evaluation/Treatment Cognitive Evaluation Medical History Pertinent Medical History: HTN Current History The patient was recently admitted to [facility] with a diagnosis of cardiogenic shock. Reviewed History: Yes Social History Current Living Status: Spouse Speech PLF-Current Status Prior Level of Function The patient denied prior challenges with speech, language or cognition. Subjective The patient was seated upright in chair upon entrance. The patient greeted the clinician and was agreeable to participation in the cognitive evaluation. Language Eval: Auditory Comprehends Simple Yes/No Ques: Functional Indent/Objects Multiple Hernandez: Functional Ident/Pics in Multiple Hernandez: Functional Follows 1-Step Commands: Functional Follows Complex Directions: Functional Follows General Conversations: Functional Language Eval: Verbal Language Completes Spontaneous Greeting: Functional Produces Auto, Serial Info: Functional Imitates Simple Words/Phrases: Functional Word Finding: Functional Requests Basic Needs: Functional States Basic Personal Info: Functional Expresses Complex Ideas: Functional Cognitive Patient Orientation The patient was independently oriented to self, location, month, day of week, and year. Objective Cognitive Domain Attention: WNL Memory: WNL Problem Solving: Functional Executive Functions: WNL Objective Impression The patient displayed cognitive linguistic skills within normal limits. Communication/Social Cognition Comprehension: 6 (The patient wears glasses.) Expression: 7 Social Interaction: 6 (The patient is on an anti-depressant.) Problem Solvin Memory: 7 Speech Patient Assess Expression of Ideas/Wants: Expression (4) Understanding [place] Content: Understands (4) Brief Interview-Mental Status: Yes Repetition of Three Words: Three (3) Temporal Orientation: Year: Correct (3) Temporal Orientation: Month: Accurate within 5 days(2) Temporal Orientation: Day: Correct (1) Recall : Wear to say "Sock": Yes,after cueing (1) Recall : Color: Yes, no cue required (2) Recall : Bed: Yes,after cueing (1) Speech-Plan Treatment Plan Speech Therapy Treatment Plan: Discontinue ST Evaluation, only. Frequency: Modified Program (IRF) (No ST warranted.) Estimated Hrs Per Day: Other (No ST warranted.) Rehab Potential: Good Safety Risks/Education Teaching Recipient: Patient Teaching Methods: Discussion Response to Teaching: Verbalize Understanding Education Topics Provided: Results, Recommendations, Plan of Care Time Speech Therapy Time In: 15:30 Speech Therapy Time Out: 16:00 Total Billed Time: 30 Billed Treatment Time 1, SAUL JACOBS April 03, 2018 16:04
[2018-04-03] MEDS ORDERED: SPIRONOLACTONE 25 MG (ALDACTONE) TAB ONE (17:48)
--- NOTE | 2018-04-03 17:57 | HISTORY AND PHYSICAL ---
DATE OF SERVICE: CHIEF COMPLAINT: Difficulty with walking. HISTORY OF PRESENT ILLNESS: The patient is a 68-year-old female who presented to [facility] and was transferred from [facility] on 03/17/2018 due to atrial fibrillation with rapid ventricular response. The patient went on to develop cardiogenic shock, refractory to vasopressors and had intraaortic balloon pump placement by Dr. Ramesh, cardiology. The patient was subsequently transferred the next day to [facility] for ongoing care at that facility. The patient was treated for the cardiogenic shock, acute respiratory failure with hypoxia, acute systolic heart failure, acute kidney injury, hyponatremia, cardiomyopathy and paroxysmal atrial fibrillation as well as junctional bradycardia. The patient had a pacemaker and defibrillator placed, medically stabilized. Medications adjusted and now referred to inpatient rehabilitation unit for ongoing care. She lives in [place], [place] with her spouse. Her PCP does not attend at this facility. She had been independent prior to this, but considering having a left total knee replacement. Currently, she requires assistance for her ADLs and mobility skills.She is Modified Independent for eating and mod assist for Lower body dressing She is Min assist for transfers.She is min assist for gait with FWW. PAST MEDICAL HISTORY: Hypertension, type 2 diabetes mellitus, hyperlipidemia, morbid obesity with BMI of 45. PAST SURGICAL HISTORY: Thyroid surgery.Left shoulder surgery ALLERGIES: LATEX, PENICILLIN. FAMILY HISTORY: Noncontributory. SOCIAL HISTORY: History of tobaccoism. Denies any prior spinal or hip,knee surgery in the past. REVIEW OF SYSTEMS: A 10-point review of systems significant for limited endurance. Some arthritic knee pain. MEDICATIONS: Amiodarone 200 mg p.o. daily, Eliquis 5 mg p.o. b.i.d., ASA 81 mg p.o. daily, Bumex 2 mg p.o. daily, digoxin 62.5 mcg p.o. daily, KCl 20 mEq p.o. daily, Aldactone 25 mg p.o. daily, Zocor 20 mg p.o. at bedtime, Tylenol 650 mg p.o. q.6 hours as needed for pain, Amaryl 2 mg p.o. b.i.d., Levemir insulin 16 units subcu b.i.d. before meals, Synthroid 125 mcg p.o. daily, Zestril 10 mg p.o. daily, Glucophage 1000 mg p.o. b.i.d., Paxil 40 mg p.o. daily, Januvia 100 mg p.o. daily. PHYSICAL EXAMINATION: GENERAL: Significant for a female, somewhat obese, appearing his stated age, sitting in chair, in no acute distress. VITAL SIGNS: Pulse 60, respirations 18, blood pressure 118/64, O2 sat 96% on room air. She is afebrile. HEENT: Vision, speech, hearing grossly intact. Tongue coated white. NECK: Supple without mass. HEART: Regular rhythm. CHEST: Clear. She has a well healed scar left anterior chest from pacemaker placement. ABDOMEN: Soft, nontender, bowel sounds present. EXTREMITIES: Trace edema both ankles, no calf tenderness. MUSCULOSKELETAL: She has functional active range of motion in all 4 limbs.There is Range to 90 degrees left shoulder with well healed anterior scar NEUROLOGIC: She has 4/5 strength Both lower limbs except for rt hip flex due to recent Cardiac procedure.She is left hand dominant with functional strength in Upper limbs Sensation grossly intact to touch. Cognition grossly intact. IMPRESSION: 1. General debilitation secondary to atrial fibrillation with rapid ventricular rate with associated cardiogenic shock refractory to vasopressors status post intraaortic balloon pump placement by Dr. Ramesh. 2. Acute respiratory failure, treated. 3. Hypothyroidism, on replacement. 4. PAF, treated. 5. Morbid obesity with BMI of 45. 6. Nonischemic cardiomyopathy. 7. Acute systolic heart failure, treated. 8. Hyponatremia, treated. 9. Hyperlipidemia, on statin. 10.DM poorly controlled 11. Oral Thrush Diflucan ordered 12. S/P left shoulder surgery PLAN: The patient will have a comprehensive program of inpatient rehabilitation wit goal of maximizing level of functional independence prior to discharge home with spouse. The patient will have PT, OT 90 minutes per day each discipline, 5 days a week for 14 days. Please see post-admission physician evaluation which is a separate document for details of plan of care. Speech therapy to do cognitive assessment and treat as indicated. Rehabilitation nursing assist with bowel, bladder, skin, wound care, medication administration, pain management and community mental health social worker assist with discharge planning, community reentry. Consult Dr. Ramesh for cardiology followup, consult hospitalist for general medical followup, therapy with cardiac and fall precautions.Check Labs. ESTIMATED LENGTH OF STAY: 14 days. PROGNOSIS: Rehab progress appears good for goal of discharging home with spouse, modified independent to supervision for ADLs and mobility skills. DIET: Heart healthy. CODE STATUS: Full code. Accu-Cheks b.i.d. or more frequently as needed. SCDs for DVT prophylaxis. Job ID: [id number] DocumentID: [id number] Dictated Date: 04/03/2018 15:57:37 Solar Energy Sales Specialist Date: 04/03/2018 17:56:32 Dictated By: DOUG MAX MD MTDD
[2018-04-03 18:35] VITALS: BP 102/49
[2018-04-03] MEDS: metFORMIN 500 MG (GLUCOPHAGE) TAB PO SCH (18:42)
[2018-04-03] MEDS: GLIMEPIRIDE 2 MG (AMARYL) TAB PO SCH (18:42)
[2018-04-03] MEDS: inSUlin DETERMIR 1 UNIT/0.01 ML (LEVEMIR) CHARGE PER UNIT SQ SCH (18:42)
[2018-04-03] MEDS ORDERED: BUMETANIDE 1 MG (BUMEX) TAB ONE (20:09)
[2018-04-03] MEDS: SIMvastatin 20 MG (ZOCOR) TAB PO SCH (20:15)
[2018-04-03] MEDS: APIXABAN 5 MG (ELIQUIS) TABLET PO SCH (20:16)
[2018-04-03] MEDS: fluCOnazole (DIFLUCAN) 100 MG TAB PO SCH (20:16)
[2018-04-03] MEDS: SPIRONOLACTONE 25 MG (ALDACTONE) TAB PO SCH (20:16)
[2018-04-03] MEDS ORDERED: inSUlin ASPART (NovoLOG) 1 UNIT/0.01 ML (CHARGE PER UNIT) SC SCH (21:15)
[2018-04-04 05:33] VITALS: BP 114/73
[2018-04-04] MEDS: LEVOTHYROXINE 125 MCG (LEVOTHROID) TABLET PO SCH (06:24)
[2018-04-04] MEDS: KCL 20 MEQ TAB (K-DUR) PO SCH (06:24)
[2018-04-04] MEDS: metFORMIN 500 MG (GLUCOPHAGE) TAB PO SCH ×2 (06:24→16:02)
[2018-04-04] MEDS: GLIMEPIRIDE 2 MG (AMARYL) TAB PO SCH ×2 (06:24→16:02)
[2018-04-04] MEDS: inSUlin DETERMIR 1 UNIT/0.01 ML (LEVEMIR) CHARGE PER UNIT SQ SCH ×2 (06:25→16:02)
[2018-04-04 07:10] LABS: BASOPHILS # (AUTO) 0.1 10^3/uL (0.0-0.1); BASOPHILS % (AUTO) 1 % (0-10); EOSINOPHILS # (AUTO) 0.3 10^3/uL (0.0-0.3); EOSINOPHILS % (AUTO) 5 % (0-10); HEMATOCRIT 36 % (35-52); HEMOGLOBIN 11.2 G/DL (11.5-16.0); LYMPHOCYTES # (AUTO) 0.7 X 10^3 (1.0-4.0); LYMPHOCYTES % (AUTO) 15 % (12-44); MEAN CORPUSCULAR HEMOGLOBIN 27 PG (25-34); MEAN CORPUSCULAR HGB CONC 32 G/DL (32-36); MEAN CORPUSCULAR VOLUME 87 FL (80-99); MEAN PLATELET VOLUME 10.9 FL (7.4-10.4); MONOCYTES # (AUTO) 0.6 X 10^3 (0.0-1.0); MONOCYTES % (AUTO) 13 % (0-12); NEUTROPHILS # (AUTO) 3.3 X 10^3 (1.8-7.8); NEUTROPHILS % (AUTO) 67 % (42-75); PLATELET COUNT 144 10^3/uL (130-400); RED CELL DISTRIBUTION WIDTH 16.4 % (10.0-14.5); WHITE BLOOD COUNT 4.9 10^3/uL (4.3-11.0)
[2018-04-04 07:35] LABS: ALBUMIN 3.3 GM/DL (3.2-4.5); BILIRUBIN,TOTAL 1.2 MG/DL (0.1-1.0); CALCIUM 8.9 MG/DL (8.5-10.1); CREATININE SERUM 0.98 MG/DL (0.60-1.30); POTASSIUM 4.6 MMOL/L (3.6-5.0); TOTAL PROTEIN 6.3 GM/DL (6.4-8.2)
[2018-04-04] MEDS: APIXABAN 5 MG (ELIQUIS) TABLET PO SCH ×2 (09:07→19:36)
[2018-04-04] MEDS: lisINopril 10 MG (PRINIVIL) TABLET PO SCH (09:07)
[2018-04-04] MEDS: PARoxetine 20 MG (PAXIL) TAB PO SCH (09:07)
[2018-04-04] MEDS: BUMETANIDE 1 MG (BUMEX) TAB PO SCH (09:08)
[2018-04-04] MEDS: AMIODARONE 200 MG (CORDARONE) TAB PO SCH (09:08)
[2018-04-04] MEDS: ASPIRIN E.C. 81 MG (ECOTRIN) TAB PO SCH (09:08)
[2018-04-04] MEDS: SPIRONOLACTONE 25 MG (ALDACTONE) TAB PO SCH (09:08)
[2018-04-04] MEDS: LINAGLIPTIN (TRADJENTA) 5 MG TABLET PO SCH (09:08)
--- NOTE | 2018-04-04 09:36 | Physical Therapy Daily Note ---
PT Daily Note-Current Subjective Agreeable to PT. Reports she was up and down all night after taking her water pill. Pain Numeric Pain Scale: 0-No Pain Location: No Pain Reported Mental Status Patient Orientation: Person, Place, Time, Situation Transfers Functional [place] Measure 0=Not Assessed/NA 4=Minimal Assistance 1=Total Assistance 5=Supervision or Setup 2=Maximal Assistance 6=Modified [place] 3=Moderate Assistance 7=Complete IndependenceIRFPAI Quality Coding Scale 6 Independent with activity with or without an assistive device 5 Patient requires set up or clean up by helper. Patient completes activity by themselves 4 Supervision or touching assist (CGA). [place] provide cues , steadying assist 3 The helper provides less than half the effort to complete the activity 2 The helper provides more than half the effort to complete the activity 1 Dependent. The helper does all the effort to complete an activity 7 Patient refused to complete or attempt activity 9 The patient did not perform the activity before the current illness or injury 88 Not attempted due to Medical conditions or safety concerns Transfers (B, C, W/C) (FIM): 4 Supine to/from Sit: 4 Sit to/from Stand: 4 Toilet transfer with min assist. Skilled cues for use of hand placement correctly. Reminders of limits left UE due to pacemaker Gait Training Does the Patient Walk?: Yes Gait Assistive Device: FWW Pt walked in room this date approx 50 ft x 2 wtih FWW with CGA. Treatments Pt got out of bed; toileted and then stood at sink to wash her hands and brush her teeth, focused on static and dynamic balance at sink as well as increasing functional activity tolerance for standing. Assessment Limited functional activity tolerance at this time and needs light assist with all tranfers. PT Short Term Goals Short Term Goals Time Frame: April 10, 2018 Transfers (B,C,W/C) (FIM): 5 Gait (FIM): 4 Gait Distance Comment: 150' Gait Level of Assist: 4 Gait Assistive Device: FWW PT Intermediate Goals Hoisting Pile Driving Engineer Goals PT Hoisting Pile Driving Engineer Goals Time Frame: April 24, 2018 Transfers (B,C,W/C) (FIM): 6 Sit to Lying (QC): 6 Lying-Sitting on Side/Bed(QC): 6 Sit to Stand (QC): 6 Rollin Roll Left to Right (QC): 6 Chair/Yxx-ze-Kdyqu Xfer(QC): 6 Car Transfer (QC): 6 Gait (FIM): 5 Distance: 150' Walk 10 feet (QC): 4 Walk 10ft-Uneven Surface(QC): 4 Walk 50ft with 2 Turns (QC): 4 Walk 150 ft (QC): 4 Gait Level of Assist: 5 Gait Assistive Device: FWW Stairs (FIM): 2 # of Steps: 4 1 Step (curb) (QC): 4 4 Steps (QC): 4 Stairs Level Of Assist: 4 PT Plan Problem List Problem List: Activity Tolerance, Functional Strength, Safety, Balance, Gait, Transfer, Bed Mobility Treatment/Plan Treatment Plan: Continue Plan of Care Treatment Plan: Bed Mobility, Education, Functional Activity [place], Functional Strength, Group Therapy, Gait, Safety, Therapeutic Exercise, Transfers Treatment Duration: April 24, 2018 Frequency: At least 5 of 7 days/Wk (IRF) Estimated Hrs Per Day: 1.5 hours per day Patient and/or Family Agrees t: Yes Safety Risks/Education Patient Education: Transfer Techniques, Safety Issues Teaching Recipient: Patient Teaching Methods: Discussion Time/GCodes Time In: 900 Time Out: 930 Total Billed Treatment Time: 30 Total Billed Treatment visit FA 15 Neuro 15 DAREN POWERS PT April 04, 2018 09:36
[2018-04-04] MEDS: DIGOXIN 62.5 MCG (LANOXIN) TAB PO SCH (09:48)
--- NOTE | 2018-04-04 10:23 | PM & R (SOAP) Progress Note ---
Subjective This was a face to face visit with the patient. Date Seen by Provider: April 04, 2018 Time Seen by Provider: 08:05 Subjective/Events-last exam Patient was seen in her room this AM Accuchek high last evening Discussed with RN Sliding scale Insulin regimen ordered Adjusting well to unit Patient Min assist for transfers Review of Systems Neurological: Weakness Objective Physician Exam Last Set of Vital Signs Vital Signs Date Time Temp Pulse Resp B/P (MAP) Pulse Ox O2 Delivery O2 Flow Rate FiO2 04/04/18 09:00 Room Air 04/04/18 07:10 2.00 04/04/18 05:33 97.5 67 16 114/73 (87) 96 Capillary Refill : I&O Intake and Output 04/04/18 00:00 Intake Total 300 ml Balance 300 ml Intake Oral 300 ml # Voids 2 Daily Weight Change No General: Alert, Oriented X3, Cooperative, No Acute Distress HEENT: Atraumatic, PERRLA, EOMI, Mucous Memb Moist/[place], Other (whitish discoloration on tongue) Neck: Supple, No JVD Lungs: Clear to Auscultation Heart: Regular Rate Abdomen: Normal Bowel Sounds, Soft, No Tenderness Extremities: No Edema Skin: Other (Pacemaker incision site healing well) Neuro: Other (Generalized weakness) Results Lab Data Laboratory Tests 04/03/18 17:55: Glucometer 337H 04/04/18 05:06: Glucometer 121H 04/04/18 06:49: White Blood Count 4.9, Red Blood Count 4.10L, Hemoglobin 11.2L, Hematocrit 36, Mean Corpuscular Volume 87, Mean Corpuscular Hemoglobin 27, Mean Corpuscular Hemoglobin Concent 32, Red Cell Distribution Width 16.4H, Platelet Count 144, Mean Platelet Volume 10.9H, Neutrophils (%) (Auto) 67, Lymphocytes (%) (Auto) 15 , Monocytes (%) (Auto) 13H, Eosinophils (%) (Auto) 5, Basophils (%) (Auto) 1, Neutrophils # (Auto) 3.3, Lymphocytes # (Auto) 0.7L, Monocytes # (Auto) 0.6, Eosinophils # (Auto) 0.3, Basophils # (Auto) 0.1, Sodium Level 137, Potassium Level 4.6, Chloride Level 101, Carbon Dioxide Level 28, Anion Gap 8, Blood Urea Nitrogen 33H, Creatinine 0.98, Estimat Glomerular Filtration Rate 57, BUN/ Creatinine Ratio 34, Glucose Level 109H, Calcium Level 8.9, Total Bilirubin 1.2H , Aspartate Amino Transf (AST/SGOT) 22, Alanine Aminotransferase (ALT/SGPT) 33, Alkaline Phosphatase 64, Total Protein 6.3L, Albumin 3.3 Assessment/Plan Assessment and Plan General debil secondary to A FIB with RVR with associated Cardiogenic shock Acute resp failure treated Hypothyroidism on replacement PAF treated Morbid obesity with BMI 45 Non ischemic cardiomyopathy Acute Systolic HT Failure treated Hyponatremia -resolved-current albs noted HLP-nstatin DM better controlled Oral Thrush on diflucan S/P left shoulder surgery Plan Continue Pt/OT F/U with Hospitalist and Cardiology (1) PAF (paroxysmal atrial fibrillation) Status: Acute Co-Morbidities that are continuing to impact the rehab process: (include details ) DOUG AMX MD April 04, 2018 10:23
--- NOTE | 2018-04-04 10:28 | Individualized Plan of Care ---
Individualized Plan of Care Rehab Nursing IPOC Order Admission Date April 03, 2018 at 13:15 Current Orders Orders Heart Healthy (04/03/18 Lunch) Consult Physician (04/03/18 15:01) Admission Order(Inpt,Obs,Sdc) (04/03/18 15:18) Vital Signs: Routine (Order) 08,16,00 (04/03/18 15:18) Sequential Compression Device 08,20 (04/03/18 15:18) Personal Care Home Administrator-Inpt Rehab Con (04/03/18 15:18) Rehab Nursing Orders-Ipoc (04/03/18 15:18) Physical Therapy Rehab Orders (04/03/18 15:18) Occupational Therapy Rehab Ord (04/03/18 15:18) Speech Therapy Rehab Orders (04/03/18 15:18) Turn And Reposition Q2HR (04/03/18 15:18) Intake & Output 06,14,22 (04/03/18 15:18) Weekly Weight (Lbs) WEEK (04/03/18 15:18) Amiodarone Tablet (Cordarone Tablet) (04/04/18 09:00) Apixaban Tablet (Eliquis Tablet) (04/03/18 21:00) Aspirin Enteric Coated Tablet (Ecotrin T (04/04/18 09:00) Bumetanide Tablet (Bumex Tablet) (04/04/18 09:00) Digoxin Tablet (Lanoxin Tablet) (04/04/18 09:00) Potassium Chloride (Tablet) (K Dur Table (04/04/18 07:00) Spironolactone Tablet (Aldactone Tablet) (04/04/18 09:00) Simvastatin Tablet (Zocor Tablet) (04/03/18 21:00) Acetaminophen Tablet (Tylenol Tablet) (04/03/18 15:30) Glimepiride Tablet (Amaryl Tablet) (04/03/18 17:00) Insulin Determir (Per Unit) (Levemir (Pe (04/03/18 16:00) Levothyroxine Tablet (Synthroid Tablet) (04/04/18 06:30) Lisinopril Tablet (Zestril Tablet) (04/04/18 09:00) Metformin Tablet (Glucophage Tablet) (04/03/18 17:00) Paroxetine Tablet (Paxil Tablet) (04/04/18 09:00) Pharmacy Communication (Pharmacy Communi (04/03/18 15:45) Accucheck Bid DBID (04/03/18 15:38) Consult Physician (04/03/18 15:41) Patient Visit (04/03/18 ) Speech Sound Lang Comp (04/03/18 ) Patient Visit (04/03/18 ) Pt Eval Moderate Complexity (04/03/18 ) Exercise Therap, Ea 15 Min (04/03/18 ) Functional Activities, Ea 15 (04/03/18 ) Gait Training, Ea 15 Min (04/03/18 ) Spironolactone Tablet (Aldactone Tablet) (04/03/18 17:48) Fluconazole Tablet (Diflucan Tablet) (04/03/18 21:00) Bumetanide Tablet (Bumex Tablet) (04/03/18 20:09) Insulin Aspart (Novolog) (Novolog (Charg (04/03/18 21:15) Cbc With Automated Diff (04/04/18 06:00) Comprehensive Metabolic Panel (04/04/18 06:00) Rt Request For Service (04/04/18 05:05) Rehab Nursing Orders: Ongoing Assess. of Function Status, DVT Prophylaxis, Fall Prevention, Fluid/Electrolyte/Nutrition Mgmt, Infection Prevention, Medication Management & Education, Management of Risks & Complications, Management of Skin Intergrity, Nutrition Management, Pain Management, Patient/ Family Support Other Nursing Orders: Monitor for constipation and urinary retention PT IPOC Problem List: Activity Tolerance, Functional Strength, Safety, Balance, Gait, Transfer, Bed Mobility Treatment Plan: Continue Plan of Care Bed Mobility, Education, Functional Activity [place], Functional Strength, Group Therapy, Gait, Safety, Therapeutic Exercise, Transfers Treatment Duration: April 24, 2018 Frequency: At least 5 of 7 days/Wk (IRF) Estimated Hrs Per Day: 1.5 hours per day OT IPOC Problems: Decreased Activ Tolerance, Decreased UE Strength, Dependent Transfers , Impaired I ADL's, Impaired Self-Care Skills, Restricted Funct UE ROM OT Treatment, Training and Edu: Yes Plan of Care: ADL Retraining, Functional Mobility, Group Exercise/Act as Ind, UE Funct Exercise/Act Treatment Duration: April 17, 2018 Frequency: At least 5 of 7 days/Wk (IRF) Estimated Hrs Per Day: 1.[address] IPOC Speech Therapy Treatment Plan: Discontinue ST Treatment Duration: April 04, 2018 Frequency: Modified Program (IRF) (No ST warranted.) Estimated Hrs Per Day: Other (No ST warranted.) Personal Care Home Administrator/Case Mgmt Personal Care Home Administrator/Case Managemen: Discharge Planning, Patient/Family Counseling Dietitian/Welding Setter Dietitian/Welding Setter to monitor nutritional status and make changes and/or recommendations as needed and work with speech pathology on dietary upgrades as the occur. Physician IPOC Medical Issues being managed closely and that require the 24 hour availability of a physician: Oral Thrush Nonischemic cardiomypathy Poorly controlled DM PAF Medical Issues: Bowel/Bladder Function, DVT Prophylaxis, Falls Precautions, Fluid/Electrolyte/Nutrition Balance, Infection Protection, Pain Management, Wound Care, Other (List) (as per above) Brief Synthesis of Preadmission Screen, Post-Admission Evaluation, and Therapy Evaluations:68 yo female who had been Independent prior to cardiogenic shock with PAF and resp failure treated at OSH referred to IRU for ongoing care and Therapies PMH DM Hypothyroidism Medical Prognosis: good Anticipated Length of Stay: 04-17-18 Modified Independent for adls and mobility skills Anticipated d/c Destination: Home with [facility] DOUG MAX MD April 04, 2018 10:28
--- NOTE | 2018-04-04 11:42 | Occupational Ther Daily Note ---
OT Current Status-Daily Note Subjective No pain reported. Pt. does state that she has difficulty brushing and washing hair due to precautions on left UE, and arthritis in right shoulder. Appearance Pt. up in chair. Agrees to work with OT. Mental Status/Objective Patient Orientation: Person, Place, Time, Situation Functional [place] Measure 0=Not Assessed/NA 4=Minimal Assistance 1=Total Assistance 5=Supervision or Setup 2=Maximal Assistance 6=Modified [place] 3=Moderate Assistance 7=Complete [place] ADL-Treatment Functional [place] Measure 0=Not Assessed/NA 4=Minimal Assistance 1=Total Assistance 5=Supervision or Setup 2=Maximal Assistance 6=Modified [place] 3=Moderate Assistance 7=Complete IndependenceIRFPAI Quality Coding Scale 6 Independent with activity with or without an assistive device 5 Patient requires set up or clean up by helper. Patient completes activity by themselves 4 Supervision or touching assist (CGA). [place] provide cues , steadying assist 3 The helper provides less than half the effort to complete the activity 2 The helper provides more than half the effort to complete the activity 1 Dependent. The helper does all the effort to complete an activity 7 Patient refused to complete or attempt activity 9 The patient did not perform the activity before the current illness or injury 88 Not attempted due to Medical conditions or safety concerns Grooming (FIM): 3 (Pt. requires assist to brush hair and put up. ) Bathing (FIM): 4 (Pt. requires assist to wash rear sourav area. Pt. able to wash feet with LH sponge.) Shower/Bathe Self (QC): 4 Upper Body (FIM): 3 (Pt. requires assist to don shirt due to limited ROM in bilateral shoulders.) Upper Body Dressing (QC): 3 Lower Body Dressing (FIM): 3 (Pt. able to thread underwear and shorts over feet , but has difficulty pulling over hips.) Lower Body Dressing (QC): 3 On/Off Footwear (QC): 2 (Max assist to don socks.) Toileting (FIM): 2 (Max assist to cleanse rear sourav area. Pt. states that she has used toilet tongs before and that they dont work for her.) Toileting Hygiene (QC): 2 Transfers (B, C, W/C) (FIM): 5 (SBA to stand and ambulate.) Toilet/Commode Transfer (FIM): 5 Shower Transfer(FIM): 5 Education OT Patient Education: Correct positioning, Modified ADL techniques, Progress toward Goal/Update tx plan, Purpose of tx/functional activities, Reviewed precautions, Rehab process, Transfer techniques, Use of adapted equipment Teaching Recipient: Patient Teaching Methods: Demonstration, Discussion Response to Teaching: Verbalize Understanding, Return Demonstration OT Short Term Goals Short Term Goals Transfers (B,C,W/C) (FIM): 5 1=Demonstrate adherence to instructed precautions during ADL tasks. 2=Patient will verbalize/demonstrate understanding of assistive devices/ modifications for ADL. 3=Patient will improve strength/tolerance for activity to enable patient to perform ADL's. OT Bulker Goals Fdc Goals Time Frame: April 17, 2018 Eating (FIM): 6 Eating (QC): 6 Groomin Oral Hygiene (QC): 6 Bathing(FIM): 5 Shower/Bathe Self (QC): 5 Upper Body Dressing(FIM): 6 Upper Body Dressing (QC): 6 Lower Body Dressing(FIM): 6 Lower Body Dressing (QC): 6 On/Off Footwear (QC): 6 Toileting(FIM): 6 Toileting Hygiene (QC): 6 Transfers (B,C,W/C) (FIM): 6 Toilet/Commode Transfer(FIM): 6 Toilet/Commode Transfer (QC): 6 Shower Transfer(FIM): 5 Additional Goals: 1-Demonstrate ADL Tasks, 2-Verbalize Understanding, 3- ImproveStrength/[place] 1=Demonstrate adherence to instructed precautions during ADL tasks. 2=Patient will verbalize/demonstrate understanding of assistive devices/ modifications for ADL. 3=Patient will improve strength/tolerance for activity to enable patient to perform ADL's. OT Education/Plan Problem List/Assessment Assessment: Decreased Activ Tolerance, Decreased UE Strength, Impaired I ADL's , Impaired Self-Care Skills, Restricted Funct UE ROM Discharge Recommendations Plan/Recommendations: Continue POC Therapy D/C Recommendations: Home w/ Family Support, Occupational Therapy Home Care Equpiment Recommendations-D/C: Hip Kit Treatment Plan/Plan of Care Treatment,Training & Education: Yes Patient would benefit from OT for education, treatment and training to promote independence in ADL's, mobility, safety and/or upper extremity function for ADL' s. Plan of Care: ADL Retraining, Functional Mobility, Group Exercise/Act as Ind, UE Funct Exercise/Act Treatment Duration: April 17, 2018 Frequency: At least 5 of 7 days/Wk (IRF) Estimated Hrs Per Day: 1.5 hours per day Agreement: Yes Rehab Potential: Good Time/GCodes Start Time: 10:00 Stop Time: 11:05 Total Time Billed (hr/min): 65 Billed Treatment Time 1, ADL x 65 minutes SHAR STEWART OT April 04, 2018 11:42
--- NOTE | 2018-04-04 12:01 | Physical Therapy Daily Note ---
PT Daily Note-Current Subjective Agreeable. reports she is tired after showering with OT. Mental Status Patient Orientation: Person, Place, Time, Situation Transfers Functional [place] Measure 0=Not Assessed/NA 4=Minimal Assistance 1=Total Assistance 5=Supervision or Setup 2=Maximal Assistance 6=Modified [place] 3=Moderate Assistance 7=Complete IndependenceIRFPAI Quality Coding Scale 6 Independent with activity with or without an assistive device 5 Patient requires set up or clean up by helper. Patient completes activity by themselves 4 Supervision or touching assist (CGA). [place] provide cues , steadying assist 3 The helper provides less than half the effort to complete the activity 2 The helper provides more than half the effort to complete the activity 1 Dependent. The helper does all the effort to complete an activity 7 Patient refused to complete or attempt activity 9 The patient did not perform the activity before the current illness or injury 88 Not attempted due to Medical conditions or safety concerns Transfers (B, C, W/C) (FIM): 4 Sit to/from Stand: 4 Sit to stand multiple attempts with min to CGA and skilled cues for hand placement. Gait Training Does the Patient Walk?: Yes Gait (FIM): 2 Distance (FIM): 0=478-42 ft Gait Assistive Device: FWW 50 ft x 3; 100 ft x 1 Wheelchair Training Does the Pt Use a Wheelchair?: No Stair Training Stairs (FIM): 2 #of Steps: 1 1 Step (curb) (QC): 4 (CGA) 4 Steps (QC): 88 12 Steps (QC): 88 Stairs: Pattern: Step to Exercises Seated Therapy Exercises: Ankle pumps, Sit to stand, Long arc quads, Hip flexion, Hip abd/add Seated Reps: 10 (functional strengthening to improve gait and transfers) Assessment Current Status: Good Progress LImited functional activity tolerance. PT Short Term Goals Short Term Goals Time Frame: April 10, 2018 Transfers (B,C,W/C) (FIM): 5 Gait (FIM): 4 Gait Distance Comment: 150' Gait Level of Assist: 4 Gait Assistive Device: FWW PT Group Home Goals Group Home Goals PT Group Home Goals Time Frame: April 24, 2018 Transfers (B,C,W/C) (FIM): 6 Sit to Lying (QC): 6 Lying-Sitting on Side/Bed(QC): 6 Sit to Stand (QC): 6 Rollin Roll Left to Right (QC): 6 Chair/Vco-dh-[place] Xfer(QC): 6 Car Transfer (QC): 6 Gait (FIM): 5 Distance: 150' Walk 10 feet (QC): 4 Walk 10ft-Uneven Surface(QC): 4 Walk 50ft with 2 Turns (QC): 4 Walk 150 ft (QC): 4 Gait Level of Assist: 5 Gait Assistive Device: FWW Stairs (FIM): 2 # of Steps: 4 1 Step (curb) (QC): 4 4 Steps (QC): 4 Stairs Level Of Assist: 4 PT Plan Problem List Problem List: Activity Tolerance, Functional Strength, Safety Treatment/Plan Treatment Plan: Continue Plan of Care Treatment Plan: Bed Mobility, Education, Functional Activity [place], Functional Strength, Group Therapy, Gait, Safety, Therapeutic Exercise, Transfers Treatment Duration: April 24, 2018 Frequency: At least 5 of 7 days/Wk (IRF) Estimated Hrs Per Day: 1.5 hours per day Patient and/or Family Agrees t: Yes Time/GCodes Time In: 1100 Time Out: 1130 Total Billed Treatment Time: 30 Total Billed Treatment visit EX 15 GT 15 DAREN POWERS PT April 04, 2018 12:01
--- NOTE | 2018-04-04 12:34 | Consultation-Hospitalist ---
HPI History of Present Illness: HPI/Chief Complaint CC: Recovery from critical illness HPI: This is a 68yoWF who suffered a critical illness 4 weeks prior that started at atrial fibrillation with rapid ventricular response at [facility] transferred to [facility] for higher level of care when into cardiogenic shock required balloon pump and several intensive critical management modalities and eventually sent up to who survived was able to be weaned off the ventilator and has since returned back to [facility] for inpatient rehabilitation. At this current time her pain is much improved and she was just completing physical therapy and is overall doing well. She feels like she has slow progress but otherwise she has no significant concerns. I review her prior hospital stay along with hospital stay along with reconciliation of her home medication. Source: patient Exam Limitations: no limitations Date Seen 04/04/18 Attending Physician Tejinder Christianson MD PCP No,Local Physician Referring Physician Date of Admission April 03, 2018 at 13:15 Home Medications & Allergies Home Medications Reviewed patient Home Medication Reconciliation performed by pharmacy medication reconciliations paint laboratory technician and/or nursing. Patients Allergies have been reviewed. Allergies Allergies Coded Allergies Latex (Verified Allergy, Intermediate, HIVES, 04/13/09) Penicillins (Verified Allergy, Mild, "I GO TO SLEEP", 04/13/09) Past Rjzjrxx-Povpxu-Spifra Hx Past Med/Social Hx: Reviewed Nursing Past Med/Soc Hx, Reviewed and Corrections made Patient Social History Marrital Status: Employed/Student: retired Smoking Status: Former Smoker Type Used: Cigarettes Recent Foreign Travel: No Contact w/other who traveled: No Recent Hopitalizations: Yes Recent Infectious Disease Expo: No Immunizations Up To Date Pediatric: Yes Seasonal Allergies Seasonal Allergies: No Past Medical History Cardiac: Atrial Fibrillation, Chronic Edema/Swelling, Coronary Artery Disease, High Cholesterol, Hypertension Reproductive: Yes Sexually Transmitted Disease: No Gastrointestinal: Liver Disease/Jaundice Psychosocial: Depression History of Blood Disorders: No Family History Patient reports no known family medical history. Review of Systems Constitutional: see HPI EENTM: no symptoms reported Respiratory: dyspnea on exertion Cardiovascular: no symptoms reported Gastrointestinal: no symptoms reported Genitourinary: no symptoms reported Musculoskeletal: no symptoms reported Skin: no symptoms reported Psychiatric/Neurological: No Symptoms Reported All Other Systems Reviewed Negative Unless Noted: Yes Physical Exam Physical Exam Vital Signs Vital Signs - First Documented 04/03/18 04/03/18 13:00 20:00 Temp 97.6 Pulse 60 Resp 18 B/P (MAP) 118/64 (82) Pulse Ox 96 O2 Delivery Room Air O2 Flow Rate 2.00 Capillary Refill : General Appearance: No Apparent Distress, WD/WN, Chronically ill, Obese Eyes: Bilateral Eye Normal Inspection, Bilateral Eye PERRL HEENT: PERRL/EOMI, Normal ENT Inspection, Pharynx Normal Neck: Full Range of Motion, Normal Inspection, Non Tender, Supple, Carotid Bruit Respiratory: Chest Non Tender, Lungs Clear, Normal Breath Sounds, No Accessory Muscle Use, No Respiratory Distress Cardiovascular: No Edema, No Gallop, No JVD, No Murmur, Normal Peripheral Pulses, Irregularly Irregular Gastrointestinal: Normal Bowel Sounds, No Organomegaly, No Pulsatile Mass, Non Tender, Soft Back: Normal Inspection, No CVA Tenderness, No Vertebral Tenderness Extremity: Normal Capillary Refill, Normal Inspection, Normal Range of Motion, Non Tender, No Calf Tenderness, No Pedal Edema Neurologic/Psychiatric: Alert, Oriented x3, No Motor/Sensory Deficits, Depressed Affect Skin: Normal Color, Warm/Dry Lymphatic: No Adenopathy Results Results/Procedures Labs Laboratory Tests 04/04/18 06:49 Patient resulted labs reviewed. Assessment/Plan Assessment and Plan Assess & Plan/Chief Complaint Assessment: Status post survival after critical illness of cardiogenic shock requiring balloon pump and multiple aggressive critical care management modalities Diabetes mellitus CAD Severe debility Plan: Home meds Consult cardiology Monitor closely Diagnosis/Problems Diagnosis/Problems (1) Cardiogenic shock Status: Resolved (2) Atrial fibrillation with RVR Status: Chronic (3) PAF (paroxysmal atrial fibrillation) Status: Acute (4) Diabetes mellitus Status: Chronic Qualifiers: Diabetes mellitus type: type 2 Diabetes mellitus intermediate insulin use: without research specialist use Diabetes mellitus complication status: with circulatory complication Diabetes mellitus complication detail: with other circulatory complications Qualified Codes: E11.59 - Type 2 diabetes mellitus with other circulatory complications (5) Hypertension Status: Chronic Qualifiers: Hypertension type: essential hypertension Qualified Codes: I10 - Essential (primary) hypertension (6) Hypothyroidism Status: Chronic Qualifiers: Hypothyroidism type: acquired Qualified Codes: E03.9 - Hypothyroidism, unspecified Clinical Quality Measures DVT/VTE Risk/Contraindication: Risk Factor Score Per Nursin RFS Level Per Nursing on Admit: 4+=Very High BEATRICE CAMACHO DO April 04, 2018 12:34
--- NOTE | 2018-04-04 14:11 | Occupational Ther Daily Note ---
OT Current Status-Daily Note Subjective No pain reported. Appearance Pt. in chair. Agrees to work with OT. Mental Status/Objective Patient Orientation: Person, Place, Time, Situation Functional [place] Measure 0=Not Assessed/NA 4=Minimal Assistance 1=Total Assistance 5=Supervision or Setup 2=Maximal Assistance 6=Modified [place] 3=Moderate Assistance 7=Complete [place] ADL-Treatment Functional [place] Measure 0=Not Assessed/NA 4=Minimal Assistance 1=Total Assistance 5=Supervision or Setup 2=Maximal Assistance 6=Modified [place] 3=Moderate Assistance 7=Complete IndependenceIRFPAI Quality Coding Scale 6 Independent with activity with or without an assistive device 5 Patient requires set up or clean up by helper. Patient completes activity by themselves 4 Supervision or touching assist (CGA). [place] provide cues , steadying assist 3 The helper provides less than half the effort to complete the activity 2 The helper provides more than half the effort to complete the activity 1 Dependent. The helper does all the effort to complete an activity 7 Patient refused to complete or attempt activity 9 The patient did not perform the activity before the current illness or injury 88 Not attempted due to Medical conditions or safety concerns Transfers (B, C, W/C) (FIM): 5 (SBA with walker to ambulate) Other Treatment Pt. ambulates to therapy gym. Requires increased time. Completed 5 minutes on armbike at min resistance. Pt. states that her shoulders feel week. Made sure pt. no flexing above 90 degrees. HR at 65, oxygen saturation at 95%. OT donned 1 lb. wrist weights to complete fine motor activity. Pt. states that weights are too much. Doffed weights and worked on peg task at tabletop with increased time needed. Pt. states that she feels her hand strength is good, although it does seem difficult for her to push pegs down. Ambulated back to room. Required one rest break in which pt. had to sit and rest in chair. Ambulated back to room and all needs met. Transferred to bed with min assist needed. Education OT Patient Education: Correct positioning, Exercise program, Progress toward Goal/Update tx plan, Purpose of tx/functional activities, Reviewed precautions, Rehab process Teaching Recipient: Patient Teaching Methods: Demonstration, Discussion Response to Teaching: Verbalize Understanding, Return Demonstration OT Short Term Goals Short Term Goals Transfers (B,C,W/C) (FIM): 5 1=Demonstrate adherence to instructed precautions during ADL tasks. 2=Patient will verbalize/demonstrate understanding of assistive devices/ modifications for ADL. 3=Patient will improve strength/tolerance for activity to enable patient to perform ADL's. OT Pulmonologist Goals [facility] Goals Time Frame: April 17, 2018 Eating (FIM): 6 Eating (QC): 6 Groomin Oral Hygiene (QC): 6 Bathing(FIM): 5 Shower/Bathe Self (QC): 5 Upper Body Dressing(FIM): 6 Upper Body Dressing (QC): 6 Lower Body Dressing(FIM): 6 Lower Body Dressing (QC): 6 On/Off Footwear (QC): 6 Toileting(FIM): 6 Toileting Hygiene (QC): 6 Transfers (B,C,W/C) (FIM): 6 Toilet/Commode Transfer(FIM): 6 Toilet/Commode Transfer (QC): 6 Shower Transfer(FIM): 5 Additional Goals: 1-Demonstrate ADL Tasks, 2-Verbalize Understanding, 3- ImproveStrength/[place] 1=Demonstrate adherence to instructed precautions during ADL tasks. 2=Patient will verbalize/demonstrate understanding of assistive devices/ modifications for ADL. 3=Patient will improve strength/tolerance for activity to enable patient to perform ADL's. OT Education/Plan Problem List/Assessment Assessment: Decreased Activ Tolerance, Decreased UE Strength, Impaired Coordination, Impaired I ADL's, Impaired Self-Care Skills, Restricted Funct UE ROM Discharge Recommendations Plan/Recommendations: Continue POC Therapy D/C Recommendations: Home w/ Family Support, Occupational Therapy Home Care Treatment Plan/Plan of Care Treatment,Training & Education: Yes Patient would benefit from OT for education, treatment and training to promote independence in ADL's, mobility, safety and/or upper extremity function for ADL' s. Plan of Care: ADL Retraining, Functional Mobility, Group Exercise/Act as Ind, UE Funct Exercise/Act Treatment Duration: April 17, 2018 Frequency: At least 5 of 7 days/Wk (IRF) Estimated Hrs Per Day: 1.5 hours per day Agreement: Yes Rehab Potential: Good Time/GCodes Start Time: 13:00 Stop Time: 13:35 Total Time Billed (hr/min): 35 Billed Treatment Time 1, EX x 15minutes, FA x 20minutes SHAR STEWART OT April 04, 2018 14:11
[2018-04-04] MEDS: fluCOnazole (DIFLUCAN) 100 MG TAB PO SCH (16:02)
[2018-04-04] MEDS: inSUlin ASPART (NovoLOG) 1 UNIT/0.01 ML (CHARGE PER UNIT) SC SCH ×2 (16:07→21:32)
--- NOTE | 2018-04-04 17:52 | Consultation-Cardiology ---
HPI-Cardiology Cardiology Consultation: Date of Consultation 04/04/18 Date of Admission Attending Physician Tejinder Christianson MD Admitting Physician No,Local Physician Consulting Physician Jonny RAMESH MD HPI: Time Seen by Provider: 10:00 Chief Complaint: Atrial fibrillation, severe symptomatic cardiomyopathy This is a 68-year-old lady who was transferred from [facility] to our hospital recently for atrial fibrillation with rapid ventricular rate. She was found to have severe LV systolic dysfunction and went into cardiogenic shock , refractory to inotropes. Coronary angiography was performed which did not show significant CAD. Intra-aortic balloon pump was placed. Patient was severely acidotic with acute respiratory failure and was intubated and ventilated. Patient was transferred to [facility] for possible LVAD due to borderline blood pressure even on intra-aortic balloon pump and multiple vasopressors. She has been transferred back to us yesterday for inpatient rehabilitation. Notes available to us demonstrate that she was gradually weaned off inotropes, intra-aortic balloon pump was taken out after the patient became more stable. She was subsequently extubated. She also had a defibrillator placed, details are not available as far as indication and type of ICD is concerned. However she was ambulating and not in significant shortness of breath when I saw her today. She denies complaining of any significant cardiac symptoms. Review of Systems-Cardiology Review of Systems Constitutional: As described under HPI; No As described under HPI, No no symptoms reported, No chills, No fever, No lightheadedness Eyes: No As described under HPI, No no symptoms reported, No blindness, No blurred vision, No contact lenses, No drainage, No decreased acuity, No foreign body sensation, No pain, No vision change Ears/Nose/Throat: No As described under HPI, No no symptoms reported, No chronic hearing loss, No ear discharge, No ear pain, No nasal drainage, No ulcerations Respiratory: No no symptoms reported; As described under HPI; No As described under HPI, No cough, No orthopnea, No shortness of breath, No SOB with excertion Cardiovascular: No no symptoms reported; As described under HPI; No As described under HPI, No chest pain, No edema, No irregular heart rate, No lightheadedness, No palpitations Gastrointestinal: No no symptoms reported, No As described under HPI, No abdomen distended, No abdominal pain, No blood streaked bowels, No constipation , No diarrhea, No nausea, No vomiting, No stool coloration changes Genitourinary: No As described under HPI, No burning, No dysuria, No discharge , No frequency, No flank pain, No hematuria, No urgency : Yes : No Musculoskeletal: No no symptoms reported, No As describe under HPI, No back pain, No gout, No joint pain, No joint swelling, No muscle pain, No muscle stiffness, No neck pain, No other Skin: No no symptoms reported, No As described under HPI, No change in color, No change in hair/nails, No dryness, No lesions, No lumps, No rash, No other, No skin related problems, No ulcerations, No rash on exposed areas, No ulcerations on exposed areas Psychiatric/Neurological: No anxiety, No depression, No seizure, No focal weakness, No syncope Hematologic: No bleeding abnormalities [id number]-[id number] Hx Patient Social History Smoking Status: Former Smoker Type Used: Cigarettes Recent Foreign Travel: No Recent Infectious Disease Expo: No Hospitalization with Isolation: Droplet Past Medical History PMH As described under Assessment. Family Medical History Family History: Patient reports no known family medical history. Allergies and Home Medications Allergies Coded Allergies: Latex (Verified Allergy, Intermediate, HIVES, 04/13/09) Penicillins (Verified Allergy, Mild, "I GO TO SLEEP", 04/13/09) Home Medications Acetaminophen 650 Mg Tablet.er, 650 MG PO Q6H PRN for PAIN-MILD, (Reported) Glimepiride 2 Mg Tablet, 2 MG PO BID, (Reported) Hydrochlorothiazide 50 Mg Tablet, 50 MG PO DAILY, (Reported) Insulin Detemir 100 Unit/1 Ml Insuln.pen, 16 UNITS SC BID, (Reported) Levothyroxine Sodium 125 Mcg Tablet, 125 MCG PO DAILY, (Reported) Lisinopril 10 Mg Tablet, 10 MG PO DAILY, (Reported) Metformin HCl 1,000 Mg Tablet, 1,000 MG PO BID WITH MEALS, (Reported) Paroxetine HCl 40 Mg Tablet, 40 MG PO DAILY, (Reported) Simvastatin 40 Mg Tablet, 40 MG PO HS, (Reported) Sitagliptin Phosphate 100 Mg Tablet, 100 MG PO DAILY, (Reported) Patient Home Medication List Home Medication List Reviewed: Yes Physical Exam-Cardiology Physical Exam Vital Signs/I&O 04/04/18 04/04/18 07:10 09:00 O2 Delivery Nasal Cannula Room Air O2 Flow Rate 2.00 04/04/18 00:00 Intake Total 300 ml Balance 300 ml Capillary Refill : Constitutional: appears stated age, AAO x 3; No apparent distress; well- developed, well-nourished HEENT: PERRL; No discharge; hearing is well preserved, oral hygience is good; No ulceration, No xanthelasmas are seen Neck: No non-tender, No full range of motion, No supple, No normal inspection, No carotid bruit, No limited range of motion, No lymphadenopathy (R), No lymphadenopathy (L), No tender lateral, No tender midline, No thyromegaly, No other; carotid pulses are 2 + bilaterally; No with good upstrokes Respiratory: No accessory muscle use, No respiratory distress, No chest tender , No chest expansion is symmetric; chest is bilaterally symmetric; No lungs clear to percussion; lungs clear to auscultation; No crackles, No rhonchi, No rales, No stridor, No wheezing, No pleural rub, No other Cardiovascular: regular rate-rhythm; No irregularly irregular, No extra beats, No parasternal heave is noted, No JVD, No edema, No bradycardia, No tachycardia , No point of maximal impulse, No cardiac thrills are palpable; S1 and S2; No gallop/S3, No gallop/S4, No diastolic murmur, No systolic murmur, No friction rub, No click, No other Gastrointestinal: No tender, No soft, No round, No distended, No pulsatile mass , No organomegaly, No guarding, No rebound, No tenderness, No hernia, No mass, No audible bowel sounds, No abnormal bowel sounds, No abdominal bruits, No spleenomegaly, No other Rectal: deferred Extremities: No normal range of motion, No non-tender, No normal inspection, No pedal edema, No calf tenderness, No normal capillary refill, No pelvis stable , No calf tenderness, No inflammation, No pedal edema, No slow capillary refill , No swelling, No other, No abrasion, No clubbing, No cyanosis, No ecchymosis, No laceration, No no lower extremity edema bilateral, No significant edema, No tenderness, No wound Neurologic/Psychiatric: no motor/sensory deficits, alert, normal mood/affect, oriented x 3, power is 5/5 both on sides Skin: No rash, No ulcerations Data Review Labs Laboratory Tests 04/04/18 05:06: Glucometer 121H 04/04/18 06:49: White Blood Count 4.9, Red Blood Count 4.10L, Hemoglobin 11.2L, Hematocrit 36, Mean Corpuscular Volume 87, Mean Corpuscular Hemoglobin 27, Mean Corpuscular Hemoglobin Concent 32, Red Cell Distribution Width 16.4H, Platelet Count 144, Mean Platelet Volume 10.9H, Neutrophils (%) (Auto) 67, Lymphocytes (%) (Auto) 15 , Monocytes (%) (Auto) 13H, Eosinophils (%) (Auto) 5, Basophils (%) (Auto) 1, Neutrophils # (Auto) 3.3, Lymphocytes # (Auto) 0.7L, Monocytes # (Auto) 0.6, Eosinophils # (Auto) 0.3, Basophils # (Auto) 0.1, Sodium Level 137, Potassium Level 4.6, Chloride Level 101, Carbon Dioxide Level 28, Anion Gap 8, Blood Urea Nitrogen 33H, Creatinine 0.98, Estimat Glomerular Filtration Rate 57, BUN/ Creatinine Ratio 34, Glucose Level 109H, Calcium Level 8.9, Total Bilirubin 1.2H , Aspartate Amino Transf (AST/SGOT) 22, Alanine Aminotransferase (ALT/SGPT) 33, Alkaline Phosphatase 64, Total Protein 6.3L, Albumin 3.3 04/04/18 11:05: Glucometer 150H 04/04/18 16:06: Glucometer 81 A/P-Cardiology Assessment/Admission Diagnosis Severe cardiomyopathy, chronic systolic congestive heart failure, Atrial fibrillation, Status post ICD, Inpatient rehabilitation. Plan Severe cardiomyopathy, acute systolic congestive heart failure, significantly improved. Continue medications from [facility] including diuretics. Atrial fibrillation: We'll continue to follow. ICD: Details not available, as to whether this was a biventricular ICD or not. Inpatient rehabilitation Thank you for your consultation. Please call me if you have any questions. Jas Ramesh MD, FACP, FACC, FSCAI, FHRS, CCDS Interventional Cardiology Cardiac Electrophysiology Vascular Medicine and Endovascular Interventions Clinical Quality Measures DVT/VTE Risk/Contraindication: Risk Factor Score Per Nursin RFS Level Per Nursing on Admit: 4+=Very High Jonny RAMESH MD April 04, 2018 17:52
[2018-04-04] MEDS: NYSTATIN CREAM (MYCOSTATIN) 30 GM TUBE TP SCH (19:36)
[2018-04-04] MEDS: SIMvastatin 20 MG (ZOCOR) TAB PO SCH (19:36)
[2018-04-04 21:18] VITALS: BP 112/67
[2018-04-05] MEDS: LEVOTHYROXINE 125 MCG (LEVOTHROID) TABLET PO SCH (06:05)
[2018-04-05] MEDS: GLIMEPIRIDE 2 MG (AMARYL) TAB PO SCH ×2 (06:05→17:40)
[2018-04-05] MEDS: KCL 20 MEQ TAB (K-DUR) PO SCH (06:06)
[2018-04-05] MEDS: metFORMIN 500 MG (GLUCOPHAGE) TAB PO SCH ×2 (06:06→17:41)
[2018-04-05] MEDS: inSUlin DETERMIR 1 UNIT/0.01 ML (LEVEMIR) CHARGE PER UNIT SQ SCH ×2 (06:07→17:45)
[2018-04-05] MEDS: inSUlin ASPART (NovoLOG) 1 UNIT/0.01 ML (CHARGE PER UNIT) SC SCH ×4 (06:07→21:29)
[2018-04-05 06:36] VITALS: BP 117/68
[2018-04-05] MEDS: ASPIRIN E.C. 81 MG (ECOTRIN) TAB PO SCH (08:14)
[2018-04-05] MEDS: DIGOXIN 62.5 MCG (LANOXIN) TAB PO SCH (08:14)
[2018-04-05] MEDS: PARoxetine 20 MG (PAXIL) TAB PO SCH (08:14)
[2018-04-05] MEDS: BUMETANIDE 1 MG (BUMEX) TAB PO SCH (08:14)
[2018-04-05] MEDS: AMIODARONE 200 MG (CORDARONE) TAB PO SCH (08:15)
[2018-04-05] MEDS: LINAGLIPTIN (TRADJENTA) 5 MG TABLET PO SCH (08:15)
[2018-04-05] MEDS: SPIRONOLACTONE 25 MG (ALDACTONE) TAB PO SCH (08:15)
[2018-04-05] MEDS: lisINopril 10 MG (PRINIVIL) TABLET PO SCH (08:15)
[2018-04-05] MEDS: APIXABAN 5 MG (ELIQUIS) TABLET PO SCH ×2 (08:15→21:07)
--- NOTE | 2018-04-05 08:44 | PM & R (SOAP) Progress Note ---
Subjective This was a face to face visit with the patient. Date Seen by Provider: April 05, 2018 Time Seen by Provider: 07:50 Subjective/Events-last exam Patient was seen in her room this AM Accucheks trending down will monitor may need to have Meds adjusted Appreciate cardiology note Patient min assist for transfers Objective Physician Exam Last Set of Vital Signs Vital Signs Date Time Temp Pulse Resp B/P (MAP) Pulse Ox O2 Delivery O2 Flow Rate FiO2 04/05/18 06:36 97.6 58 17 117/68 (84) 95 Nasal Cannula 2.00 Capillary Refill : I&O Intake and Output 04/05/18 00:00 Intake Total 800 ml Output Total 1300 ml Balance -500 ml Intake Oral 800 ml Output Urine Total 1300 ml # Voids 4 General: Alert, Oriented X3, Cooperative, No Acute Distress HEENT: Atraumatic, PERRLA, EOMI, Mucous Memb Moist/[place], Other (whitish discoloration on tongue) Neck: Supple, No JVD Lungs: Clear to Auscultation Heart: Regular Rate Abdomen: Normal Bowel Sounds, Soft, No Tenderness Extremities: No Edema Skin: Other (Pacemaker incision site healing well) Neuro: Other (Generalized weakness) Results Lab Data Laboratory Tests 04/03/18 17:55: Glucometer 337H 04/04/18 05:06: Glucometer 121H 04/04/18 06:49: White Blood Count 4.9, Red Blood Count 4.10L, Hemoglobin 11.2L, Hematocrit 36, Mean Corpuscular Volume 87, Mean Corpuscular Hemoglobin 27, Mean Corpuscular Hemoglobin Concent 32, Red Cell Distribution Width 16.4H, Platelet Count 144, Mean Platelet Volume 10.9H, Neutrophils (%) (Auto) 67, Lymphocytes (%) (Auto) 15 , Monocytes (%) (Auto) 13H, Eosinophils (%) (Auto) 5, Basophils (%) (Auto) 1, Neutrophils # (Auto) 3.3, Lymphocytes # (Auto) 0.7L, Monocytes # (Auto) 0.6, Eosinophils # (Auto) 0.3, Basophils # (Auto) 0.1, Sodium Level 137, Potassium Level 4.6, Chloride Level 101, Carbon Dioxide Level 28, Anion Gap 8, Blood Urea Nitrogen 33H, Creatinine 0.98, Estimat Glomerular Filtration Rate 57, BUN/ Creatinine Ratio 34, Glucose Level 109H, Calcium Level 8.9, Total Bilirubin 1.2H , Aspartate Amino Transf (AST/SGOT) 22, Alanine Aminotransferase (ALT/SGPT) 33, Alkaline Phosphatase 64, Total Protein 6.3L, Albumin 3.3 04/04/18 11:05: Glucometer 150H 04/04/18 16:06: Glucometer 81 04/04/18 21:12: Glucometer 74 04/05/18 05:31: Glucometer 79 Assessment/Plan Assessment and Plan General debil secondary to A FIB with RVR with associated cardiogenic shock Acute resp failure treated Hypothyroidism on replacement PAF treated Morbid obesity with BMI 45 Nonischemic cardiomyopathy Acute systolic heart failure treated Hyponatremia rsolved Current Labs noted HLP statin 'DM accuchels trending down adjust meds as needed Oral Thrush on diflucan S/P left shoulder surgery Plan Continue PT/OT [place]ace improving F/U with Hospitalist service and Cardiology Team Conference next week 04-10-18 (1) PAF (paroxysmal atrial fibrillation) Status: Acute Co-Morbidities that are continuing to impact the rehab process: (include details ) DOUG MAX MD April 05, 2018 08:44
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
--- NOTE | 2018-04-05 10:52 | Occupational Ther Daily Note ---
OT Current Status-Daily Note Subjective Pt sitting in recliner with present. Pt agreed to therapy. No c/o pain. Mental Status/Objective Patient Orientation: Person, Place, Time, Situation Functional [place] Measure 0=Not Assessed/NA 4=Minimal Assistance 1=Total Assistance 5=Supervision or Setup 2=Maximal Assistance 6=Modified [place] 3=Moderate Assistance 7=Complete [place] ADL-Treatment Pt agrees to shower. Pt ambulated into bathroom and transferred using FWW to toilet. Pt able to complete own toileting with supervision. Pt then transferred into shower using FWW, shower bench and grabbars. Pt bathed/rinsed/ dried self using shower bench, grabbar and hand held shower with supervision. After set up, pt was able to complete upper/lower body dressing by self. Pt had completed grooming prior to therapy session. Functional [place] Measure 0=Not Assessed/NA 4=Minimal Assistance 1=Total Assistance 5=Supervision or Setup 2=Maximal Assistance 6=Modified [place] 3=Moderate Assistance 7=Complete IndependenceIRFPAI Quality Coding Scale 6 Independent with activity with or without an assistive device 5 Patient requires set up or clean up by helper. Patient completes activity by themselves 4 Supervision or touching assist (CGA). [place] provide cues , steadying assist 3 The helper provides less than half the effort to complete the activity 2 The helper provides more than half the effort to complete the activity 1 Dependent. The helper does all the effort to complete an activity 7 Patient refused to complete or attempt activity 9 The patient did not perform the activity before the current illness or injury 88 Not attempted due to Medical conditions or safety concerns Bathing (FIM): 5 Shower/Bathe Self (QC): 4 Upper Body (FIM): 5 Upper Body Dressing (QC): 5 Lower Body Dressing (FIM): 5 Lower Body Dressing (QC): 4 On/Off Footwear (QC): 5 Toileting (FIM): 5 Toileting Hygiene (QC): 5 Toilet/Commode Transfer (FIM): 5 Toilet Transfer (QC): 5 Shower Transfer(FIM): 5 Other Treatment Pt given light resistance theraband for UE exercises. Pt verbalized understanding of exercises. Theraband given to pt for use in room. After therapy, pt sitting in recliner with call light/phone in reach. OT Short Term Goals Short Term Goals Transfers (B,C,W/C) (FIM): 5 1=Demonstrate adherence to instructed precautions during ADL tasks. 2=Patient will verbalize/demonstrate understanding of assistive devices/ modifications for ADL. 3=Patient will improve strength/tolerance for activity to enable patient to perform ADL's. OT Telephone Betting Clerk Goals Telephone Betting Clerk Goals Time Frame: April 17, 2018 Eating (FIM): 6 Eating (QC): 6 Groomin Oral Hygiene (QC): 6 Bathing(FIM): 5 Shower/Bathe Self (QC): 5 Upper Body Dressing(FIM): 6 Upper Body Dressing (QC): 6 Lower Body Dressing(FIM): 6 Lower Body Dressing (QC): 6 On/Off Footwear (QC): 6 Toileting(FIM): 6 Toileting Hygiene (QC): 6 Transfers (B,C,W/C) (FIM): 6 Toilet/Commode Transfer(FIM): 6 Toilet/Commode Transfer (QC): 6 Shower Transfer(FIM): 5 Additional Goals: 1-Demonstrate ADL Tasks, 2-Verbalize Understanding, 3- ImproveStrength/[place] 1=Demonstrate adherence to instructed precautions during ADL tasks. 2=Patient will verbalize/demonstrate understanding of assistive devices/ modifications for ADL. 3=Patient will improve strength/tolerance for activity to enable patient to perform ADL's. OT Education/Plan Discharge Recommendations Plan/Recommendations: Continue POC Treatment Plan/Plan of Care Patient would benefit from OT for education, treatment and training to promote independence in ADL's, mobility, safety and/or upper extremity function for ADL' s. Plan of Care: ADL Retraining, Functional Mobility, Group Exercise/Act as Ind, UE Funct Exercise/Act Treatment Duration: April 17, 2018 Frequency: At least 5 of 7 days/Wk (IRF) Estimated Hrs Per Day: 1.5 hours per day Agreement: Yes Rehab Potential: Good Time/GCodes Start Time: 10:00 Stop Time: 11:00 Total Time Billed (hr/min): 60 Billed Treatment Time 1 visit-ADL 4 (60 min) DAREN CORDOBA April 05, 2018 10:52
--- NOTE | 2018-04-05 11:16 | Progress Note-Hospitalist ---
Subjective HPI/CC On Admission Date Seen by Provider: April 05, 2018 Time Seen by Provider: 11:00 CC: Recovery from critical illness HPI: This is a 68yoWF who suffered a critical illness 4 weeks prior that started at atrial fibrillation with rapid ventricular response at [facility] transferred to [facility] for higher level of care when into cardiogenic shock required balloon pump and several intensive critical management modalities and eventually sent up to who survived was able to be weaned off the ventilator and has since returned back to [facility] for inpatient rehabilitation. At this current time her pain is much improved and she was just completing physical therapy and is overall doing well. She feels like she has slow progress but otherwise she has no significant concerns. I review her prior hospital stay along with hospital stay along with reconciliation of her home medication. Subjective/Events-last exam Patient doing well overall Participating in physical therapy Just took a shower Under right abdominal fold there is an ulcer and consistent with complication from [place] infection Agreeable to see Dr. Kincaid Patient overall doing well otherwise She reports a dry cough so will initiate Mucinex and Lillie Roman Review of Systems Pulmonary: Cough Objective Exam Vital Signs Vital Signs Date Time Temp Pulse Resp B/P (MAP) Pulse Ox O2 Delivery O2 Flow Rate FiO2 04/05/18 18:00 98.0 59 16 146/63 (90) 92 Room Air 04/05/18 10:52 2.00 Capillary Refill : General Appearance: No Apparent Distress, WD/WN, Chronically ill Respiratory: Lungs Clear, Normal Breath Sounds Cardiovascular: Regular Rate, Rhythm, No Edema Skin: Other (right ulceration in abd fold) Results/Procedures Lab Patient resulted labs reviewed. Assessment/Plan Assessment and Plan Assess & Plan/Chief Complaint Assessment: Status post survival after critical illness of cardiogenic shock requiring balloon pump and multiple aggressive critical care management modalities Diabetes mellitus CAD Severe debility Right abdominal fold ulcer Cough Plan: Home meds Consult cardiology Monitor closely Dr Kincaid wound care evaluation Cody Roman Diagnosis/Problems Diagnosis/Problems (1) Cardiogenic shock Status: Resolved (2) Atrial fibrillation with RVR Status: Chronic (3) PAF (paroxysmal atrial fibrillation) Status: Acute (4) Diabetes mellitus Status: Chronic Qualifiers: Diabetes mellitus type: type 2 Diabetes mellitus prison insulin use: without roasterman use Diabetes mellitus complication status: with circulatory complication Diabetes mellitus complication detail: with other circulatory complications Qualified Codes: E11.59 - Type 2 diabetes mellitus with other circulatory complications (5) Hypertension Status: Chronic Qualifiers: Hypertension type: essential hypertension Qualified Codes: I10 - Essential (primary) hypertension (6) Hypothyroidism Status: Chronic Qualifiers: Hypothyroidism type: acquired Qualified Codes: E03.9 - Hypothyroidism, unspecified Clinical Quality Measures DVT/VTE Risk/Contraindication: Risk Factor Score Per Nursin RFS Level Per Nursing on Admit: 4+=Very High BEATRICE CAMACHO DO April 05, 2018 11:16
[2018-04-05] MEDS: guaiFENesin (MUCINEX) 600 MG TAB PO SCH ×2 (12:11→21:07)
[2018-04-05] MEDS: NYSTATIN CREAM (MYCOSTATIN) 30 GM TUBE TP SCH ×2 (12:11→13:09)
--- NOTE | 2018-04-05 12:50 | Cardiology Progress Note ---
Cardiology SOAP Progress Note Subjective: No cardiac symptoms Objective: I&O/Vital Signs 04/05/18 04/05/18 06:36 10:52 Temp 97.6 Pulse 58 Resp 17 B/P (MAP) 117/68 (84) Pulse Ox 95 O2 Delivery Nasal Cannula Nasal Cannula O2 Flow Rate 2.00 2.00 04/05/18 00:00 Intake Total 800 ml Balance 800 ml Weight (Pounds): 201 Weight (Ounces): 4.0 Weight (Calculated Kilograms): 91.496621 Constitutional: appears stated age, AAO x 3; No apparent distress; well- developed, well-nourished Respiratory: No accessory muscle use, No respiratory distress, No chest tender , No chest expansion is symmetric; chest is bilaterally symmetric; No lungs clear to percussion; lungs clear to auscultation; No crackles, No rhonchi, No rales, No stridor, No wheezing, No pleural rub, No other Cardiovascular: regular rate-rhythm; No irregularly irregular, No extra beats, No parasternal heave is noted, No JVD, No edema, No bradycardia, No tachycardia , No point of maximal impulse, No cardiac thrills are palpable; S1 and S2; No gallop/S3, No gallop/S4, No diastolic murmur, No systolic murmur, No friction rub, No click, No other Gastrointestional: No tender, No soft, No round, No distended, No pulsatile mass, No organomegaly, No guarding, No rebound, No tenderness, No hernia, No mass, No audible bowel sounds, No abnormal bowel sounds, No abdominal bruits, No spleenomegaly, No other Extremities: No normal range of motion, No non-tender, No normal inspection, No pedal edema, No calf tenderness, No normal capillary refill, No pelvis stable , No calf tenderness, No inflammation, No pedal edema, No slow capillary refill , No swelling, No other, No abrasion, No clubbing, No cyanosis, No ecchymosis, No laceration, No no lower extremity edema bilateral, No significant edema, No tenderness, No wound Neurologic/Psychiatric: no motor/sensory deficits, alert, normal mood/affect, oriented x 3, power is 5/5 both on sides Skin: No rash, No ulcerations Results/Procedures: Labs Laboratory Tests 04/04/18 16:06: Glucometer 81 04/04/18 21:12: Glucometer 74 04/05/18 05:31: Glucometer 79 04/05/18 11:09: Glucometer 95 A/P: Assessment/Dx: Severe cardiomyopathy, chronic systolic congestive heart failure, Atrial fibrillation, Status post ICD, Inpatient rehabilitation. Plan: Severe cardiomyopathy, acute systolic congestive heart failure, significantly improved. Continue medications from [facility] including diuretics. Atrial fibrillation: We'll continue to follow. ICD: Details not available, as to whether this was a biventricular ICD or not. Inpatient rehabilitation Thank you for your consultation. Please call me if you have any questions. Jas Ramesh MD, FACP, FACC, FSCAI, FHRS, CCDS Interventional Cardiology Cardiac Electrophysiology Vascular Medicine and Endovascular Interventions Jonny RAMESH MD April 05, 2018 12:50 pm
[2018-04-05] MEDS: BENZONATATE 100 MG (TESSALON) CAPSULE PO SCH ×2 (13:09→21:07)
--- NOTE | 2018-04-05 15:03 | Therapy Group Daily Note ---
Therapy Daily Group Note Patient Education Topic Other List Below (fall prevention) Exercises LE Seated Exercise, UE Exercise Other/Notes Pt ambulated with FWW to OT/PT group. Group consisted of introductions (name, place living, favorite pie), socialization, seated UE/LE exercises (peer led), education of fall prevention and memory activity. Pt introduced self appropriately and actively listened to peers. Pt was able to do UE/LE seated exercises without difficulty. Pt verbalized ways to prevent falls after educational topic was discussed. Pt was able to remember one word from previous , 2 days ago, memory activity. After group, pt was lying in bed with call light /phone in reach. All needs met in room. Start Time: 13:00 Stop Time: 14:15 Total Billed Treatment Time: 75 Total Billed Treatment 1-DAREN HINDS April 05, 2018 15:03
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
[2018-04-05] MEDS: fluCOnazole (DIFLUCAN) 100 MG TAB PO SCH (17:41)
[2018-04-05 18:00] VITALS: BP 146/63
[2018-04-05] MEDS: MICONAZOLE 2% POWDER (DESENEX AF) 90 GM TOP SCH ×2 (19:05→21:29)
[2018-04-05] MEDS: SIMvastatin 20 MG (ZOCOR) TAB PO SCH (21:08)
[2018-04-06 06:00] VITALS: BP 116/73
[2018-04-06] MEDS: GLIMEPIRIDE 2 MG (AMARYL) TAB PO SCH ×2 (06:39→16:50)
[2018-04-06] MEDS: inSUlin DETERMIR 1 UNIT/0.01 ML (LEVEMIR) CHARGE PER UNIT SQ SCH ×2 (06:39→16:50)
[2018-04-06] MEDS: KCL 20 MEQ TAB (K-DUR) PO SCH (06:39)
[2018-04-06] MEDS: LEVOTHYROXINE 125 MCG (LEVOTHROID) TABLET PO SCH (06:39)
[2018-04-06] MEDS: metFORMIN 500 MG (GLUCOPHAGE) TAB PO SCH ×2 (06:39→16:50)
[2018-04-06] MEDS: inSUlin ASPART (NovoLOG) 1 UNIT/0.01 ML (CHARGE PER UNIT) SC SCH ×4 (06:39→22:14)
[2018-04-06] MEDS: guaiFENesin (MUCINEX) 600 MG TAB PO SCH ×2 (09:11→21:07)
[2018-04-06] MEDS: LINAGLIPTIN (TRADJENTA) 5 MG TABLET PO SCH (09:11)
[2018-04-06] MEDS: AMIODARONE 200 MG (CORDARONE) TAB PO SCH (09:11)
[2018-04-06] MEDS: DIGOXIN 62.5 MCG (LANOXIN) TAB PO SCH (09:11)
[2018-04-06] MEDS: BENZONATATE 100 MG (TESSALON) CAPSULE PO SCH ×3 (09:11→21:07)
[2018-04-06] MEDS: BUMETANIDE 1 MG (BUMEX) TAB PO SCH (09:11)
[2018-04-06] MEDS: SPIRONOLACTONE 25 MG (ALDACTONE) TAB PO SCH (09:12)
[2018-04-06] MEDS: APIXABAN 5 MG (ELIQUIS) TABLET PO SCH ×2 (09:12→21:07)
[2018-04-06] MEDS: ASPIRIN E.C. 81 MG (ECOTRIN) TAB PO SCH (09:12)
[2018-04-06] MEDS: lisINopril 10 MG (PRINIVIL) TABLET PO SCH (09:12)
[2018-04-06] MEDS: PARoxetine 20 MG (PAXIL) TAB PO SCH (09:12)
[2018-04-06] MEDS: MICONAZOLE 2% POWDER (DESENEX AF) 90 GM TOP SCH ×2 (09:15→21:10)
--- NOTE | 2018-04-06 12:32 | Physical Therapy Daily Note ---
PT Daily Note-Current Subjective Pt. agrees to Rx. Declines use of gait belt. Pain Numeric Pain Scale: 5-Moderate Pain Location: Right Location Body Site: Shoulder Pain Description: Ache Mental Status Patient Orientation: Normal For Age Transfers Functional Major Measure 0=Not Assessed/NA 4=Minimal Assistance 1=Total Assistance 5=Supervision or Setup 2=Maximal Assistance 6=Modified [place] 3=Moderate Assistance 7=Complete IndependenceIRFPAI Quality Coding Scale 6 Independent with activity with or without an assistive device 5 Patient requires set up or clean up by helper. Patient completes activity by themselves 4 Supervision or touching assist (CGA). [place] provide cues , steadying assist 3 The helper provides less than half the effort to complete the activity 2 The helper provides more than half the effort to complete the activity 1 Dependent. The helper does all the effort to complete an activity 7 Patient refused to complete or attempt activity 9 The patient did not perform the activity before the current illness or injury 88 Not attempted due to Medical conditions or safety concerns Transfers (B, C, W/C) (FIM): 5 Scootin Rollin Supine to/from Sit: 5 (requires bed rails and some instruction, shoulder pain ensues) Sit to/from Stand: 5 Gait Training Does the Patient Walk?: Yes Gait (FIM): 5 Distance (FIM): 3=150 ft (170x2) Gait Level of Assist: 5 Gait Persons Needed: 1 Gait Assistive Device: FWW low, no LOB Exercises Seated Therapy Exercises: Ankle pumps, Sit to stand, Long arc quads, Hip flexion Seated Reps: 15 Assessment Current Status: Good Progress needs some rest breaks PT Short Term Goals Short Term Goals Time Frame: April 10, 2018 Transfers (B,C,W/C) (FIM): 5 Gait (FIM): 4 (met) Gait Distance Comment: 150' Gait Level of Assist: 4 Gait Assistive Device: FWW PT Software Licensing Executive Goals Prison Goals PT Software Licensing Executive Goals Time Frame: April 24, 2018 Transfers (B,C,W/C) (FIM): 6 Sit to Lying (QC): 6 Lying-Sitting on Side/Bed(QC): 6 Sit to Stand (QC): 6 Rollin Roll Left to Right (QC): 6 Chair/[id number] Xfer(QC): 6 Car Transfer (QC): 6 Gait (FIM): 5 Distance: 150' Walk 10 feet (QC): 4 Walk 10ft-Uneven Surface(QC): 4 Walk 50ft with 2 Turns (QC): 4 Walk 150 ft (QC): 4 Gait Level of Assist: 5 Gait Assistive Device: FWW Stairs (FIM): 2 # of Steps: 4 1 Step (curb) (QC): 4 4 Steps (QC): 4 Stairs Level Of Assist: 4 PT Plan Treatment/Plan Treatment Plan: Continue Plan of Care Treatment Plan: Bed Mobility, Education, Functional Activity [place], Functional Strength, Group Therapy, Gait, Safety, Therapeutic Exercise, Transfers Treatment Duration: April 24, 2018 Frequency: At least 5 of 7 days/Wk (IRF) Estimated Hrs Per Day: 1.5 hours per day Patient and/or Family Agrees t: Yes Safety Risks/Education Patient Education: Gait Training, Transfer Techniques Teaching Recipient: Patient Teaching Methods: Demonstration, Discussion Response to Teaching: Verbalize Understanding, Unable to Return Demonstration, Return Demonstration, Reinforcement Needed Time/GCodes Time In: 1105 Time Out: 1125 Total Billed Treatment Time: 20 Total Billed Treatment 1,FA20m G Codes Necessary: CROW Alvarez BAKER DOUGHNUT April 06, 2018 12:32
--- NOTE | 2018-04-06 14:35 | Cardiology Progress Note ---
Cardiology SOAP Progress Note Subjective: No significant cardiac complaints Objective: I&O/Vital Signs 04/06/18 04/06/18 06:00 09:00 Temp 97.2 Pulse 58 Resp 16 B/P (MAP) 116/73 (87) Pulse Ox 96 O2 Delivery Room Air Room Air 04/06/18 00:00 Intake Total 1300 ml Output Total 500 ml Balance 800 ml Weight (Pounds): 205 Weight (Ounces): 11.2 Weight (Calculated Kilograms): 93.789917 Constitutional: appears stated age, AAO x 3; No apparent distress; well- developed, well-nourished Respiratory: No accessory muscle use, No respiratory distress, No chest tender , No chest expansion is symmetric; chest is bilaterally symmetric; No lungs clear to percussion; lungs clear to auscultation; No crackles, No rhonchi, No rales, No stridor, No wheezing, No pleural rub, No other Cardiovascular: regular rate-rhythm; No irregularly irregular, No extra beats, No parasternal heave is noted, No JVD, No edema, No bradycardia, No tachycardia , No point of maximal impulse, No cardiac thrills are palpable; S1 and S2; No gallop/S3, No gallop/S4, No diastolic murmur, No systolic murmur, No friction rub, No click, No other Gastrointestional: No tender, No soft, No round, No distended, No pulsatile mass, No organomegaly, No guarding, No rebound, No tenderness, No hernia, No mass, No audible bowel sounds, No abnormal bowel sounds, No abdominal bruits, No spleenomegaly, No other Extremities: No normal range of motion, No non-tender, No normal inspection, No pedal edema, No calf tenderness, No normal capillary refill, No pelvis stable , No calf tenderness, No inflammation, No pedal edema, No slow capillary refill , No swelling, No other, No abrasion, No clubbing, No cyanosis, No ecchymosis, No laceration, No no lower extremity edema bilateral, No significant edema, No tenderness, No wound Neurologic/Psychiatric: no motor/sensory deficits, alert, normal mood/affect, oriented x 3, power is 5/5 both on sides Skin: No rash, No ulcerations Results/Procedures: Labs Laboratory Tests 04/05/18 16:48: Glucometer 147H 04/05/18 21:14: Glucometer 143H 04/06/18 11:12: Glucometer 81 A/P: Assessment/Dx: Severe cardiomyopathy, chronic systolic congestive heart failure, Atrial fibrillation, Status post ICD, Inpatient rehabilitation. Plan: Severe cardiomyopathy, acute systolic congestive heart failure, significantly improved. Continue medications from [facility] including diuretics. Atrial fibrillation: We'll continue to follow. ICD: Details not available, as to whether this was a biventricular ICD or not. Inpatient rehabilitation Thank you for your consultation. Please call me if you have any questions. Jas Ramesh MD, FACP, FACC, FSCAI, FHRS, CCDS Interventional Cardiology Cardiac Electrophysiology Vascular Medicine and Endovascular Interventions Jonny RAMESH MD April 06, 2018 2:35 pm
[2018-04-06 16:16] VITALS: BP 99/65
[2018-04-06] MEDS: fluCOnazole (DIFLUCAN) 100 MG TAB PO SCH (16:50)
[2018-04-06] MEDS: SIMvastatin 20 MG (ZOCOR) TAB PO SCH (21:07)
[2018-04-07 05:23] VITALS: BP 142/72
[2018-04-07] MEDS: KCL 20 MEQ TAB (K-DUR) PO SCH (06:13)
[2018-04-07] MEDS: metFORMIN 500 MG (GLUCOPHAGE) TAB PO SCH ×2 (06:13→17:52)
[2018-04-07] MEDS: LEVOTHYROXINE 125 MCG (LEVOTHROID) TABLET PO SCH (06:13)
[2018-04-07] MEDS: GLIMEPIRIDE 2 MG (AMARYL) TAB PO SCH ×2 (06:13→17:52)
[2018-04-07] MEDS: inSUlin DETERMIR 1 UNIT/0.01 ML (LEVEMIR) CHARGE PER UNIT SQ SCH ×2 (06:14→17:52)
[2018-04-07] MEDS: inSUlin ASPART (NovoLOG) 1 UNIT/0.01 ML (CHARGE PER UNIT) SC SCH ×4 (06:14→21:00)
[2018-04-07] MEDS: BENZONATATE 100 MG (TESSALON) CAPSULE PO SCH ×3 (08:43→21:22)
[2018-04-07] MEDS: PARoxetine 20 MG (PAXIL) TAB PO SCH (08:43)
[2018-04-07] MEDS: BUMETANIDE 1 MG (BUMEX) TAB PO SCH (08:43)
[2018-04-07] MEDS: LINAGLIPTIN (TRADJENTA) 5 MG TABLET PO SCH (08:43)
[2018-04-07] MEDS: ASPIRIN E.C. 81 MG (ECOTRIN) TAB PO SCH (08:43)
[2018-04-07] MEDS: DIGOXIN 62.5 MCG (LANOXIN) TAB PO SCH (08:43)
[2018-04-07] MEDS: lisINopril 10 MG (PRINIVIL) TABLET PO SCH (08:43)
[2018-04-07] MEDS: AMIODARONE 200 MG (CORDARONE) TAB PO SCH (08:43)
[2018-04-07] MEDS: guaiFENesin (MUCINEX) 600 MG TAB PO SCH ×2 (08:43→21:22)
[2018-04-07] MEDS: SPIRONOLACTONE 25 MG (ALDACTONE) TAB PO SCH (08:43)
[2018-04-07] MEDS: APIXABAN 5 MG (ELIQUIS) TABLET PO SCH ×2 (08:43→21:22)
[2018-04-07] MEDS: MICONAZOLE 2% POWDER (DESENEX AF) 90 GM TOP SCH ×2 (08:44→21:30)
[2018-04-07] MEDS: MICONAZOLE 2% POWDER (DESENEX AF) 90 GM TOP PRN ×4 (08:44→21:33)
--- NOTE | 2018-04-07 12:18 | Cardiology Progress Note ---
Cardiology SOAP Progress Note Subjective: No significant shortness of breath Objective: I&O/Vital Signs 04/07/18 04/07/18 04/07/18 05:23 07:54 09:54 Temp 96.8 Pulse 60 Resp 19 B/P (MAP) 142/72 (95) Pulse Ox 92 O2 Delivery Nasal Cannula Nasal Cannula Room Air O2 Flow Rate 2.00 1.00 04/07/18 00:00 Intake Total 1060 ml Output Total 400 ml Balance 660 ml Weight (Pounds): 204 Weight (Ounces): 9.6 Weight (Calculated Kilograms): 92.261941 Constitutional: appears stated age, AAO x 3; No apparent distress; well- developed, well-nourished Respiratory: No accessory muscle use, No respiratory distress, No chest tender , No chest expansion is symmetric; chest is bilaterally symmetric; No lungs clear to percussion; lungs clear to auscultation; No crackles, No rhonchi, No rales, No stridor, No wheezing, No pleural rub, No other Cardiovascular: regular rate-rhythm; No irregularly irregular, No extra beats, No parasternal heave is noted, No JVD, No edema, No bradycardia, No tachycardia , No point of maximal impulse, No cardiac thrills are palpable; S1 and S2; No gallop/S3, No gallop/S4, No diastolic murmur, No systolic murmur, No friction rub, No click, No other Gastrointestional: No tender, No soft, No round, No distended, No pulsatile mass, No organomegaly, No guarding, No rebound, No tenderness, No hernia, No mass, No audible bowel sounds, No abnormal bowel sounds, No abdominal bruits, No spleenomegaly, No other Extremities: No normal range of motion, No non-tender, No normal inspection, No pedal edema, No calf tenderness, No normal capillary refill, No pelvis stable , No calf tenderness, No inflammation, No pedal edema, No slow capillary refill , No swelling, No other, No abrasion, No clubbing, No cyanosis, No ecchymosis, No laceration, No no lower extremity edema bilateral, No significant edema, No tenderness, No wound Neurologic/Psychiatric: no motor/sensory deficits, alert, normal mood/affect, oriented x 3, power is 5/5 both on sides Skin: No rash, No ulcerations Results/Procedures: Labs Laboratory Tests 04/06/18 16:14: Glucometer 141H 04/06/18 20:22: Glucometer 204H 04/06/18 21:59: Glucometer 153H 04/07/18 04:48: Glucometer 79 04/07/18 12:05: Glucometer 66L A/P: Assessment/Dx: Severe cardiomyopathy, chronic systolic congestive heart failure, Atrial fibrillation, Status post ICD, Inpatient rehabilitation. Plan: Severe cardiomyopathy, acute systolic congestive heart failure, significantly improved. Aspirin, lisinopril, Aldactone, Bumex. Hopefully we can gradually start low-dose beta lana as well. Atrial fibrillation: We'll continue to follow. Amiodarone, Eliquis. Hyperlipidemia: Continue simvastatin ICD: Details not available, as to whether this was a biventricular ICD or not. Inpatient rehabilitation Thank you for your consultation. Please call me if you have any questions. Jas Ramesh MD, FACP, FACC, FSCAI, FHRS, CCDS Interventional Cardiology Cardiac Electrophysiology Vascular Medicine and Endovascular Interventions Jonny RAMESH MD April 07, 2018 12:18 pm
[2018-04-07 16:36] VITALS: BP 113/72
[2018-04-07] MEDS: fluCOnazole (DIFLUCAN) 100 MG TAB PO SCH (17:52)
[2018-04-07] MEDS: SIMvastatin 20 MG (ZOCOR) TAB PO SCH (21:22)
[2018-04-08 04:31] VITALS: BP 114/68
[2018-04-08] MEDS: inSUlin ASPART (NovoLOG) 1 UNIT/0.01 ML (CHARGE PER UNIT) SC SCH ×4 (06:00→21:10)
[2018-04-08] MEDS: GLIMEPIRIDE 2 MG (AMARYL) TAB PO SCH ×2 (06:55→17:00)
[2018-04-08] MEDS: LEVOTHYROXINE 125 MCG (LEVOTHROID) TABLET PO SCH (06:55)
[2018-04-08] MEDS: metFORMIN 500 MG (GLUCOPHAGE) TAB PO SCH ×2 (06:55→17:00)
[2018-04-08] MEDS: inSUlin DETERMIR 1 UNIT/0.01 ML (LEVEMIR) CHARGE PER UNIT SQ SCH ×2 (06:57→17:00)
[2018-04-08] MEDS: KCL 20 MEQ TAB (K-DUR) PO SCH (07:00)
[2018-04-08] MEDS: DIGOXIN 62.5 MCG (LANOXIN) TAB PO SCH (08:28)
[2018-04-08] MEDS: BUMETANIDE 1 MG (BUMEX) TAB PO SCH (08:28)
[2018-04-08] MEDS: PARoxetine 20 MG (PAXIL) TAB PO SCH (08:28)
[2018-04-08] MEDS: APIXABAN 5 MG (ELIQUIS) TABLET PO SCH ×2 (08:29→21:02)
[2018-04-08] MEDS: LINAGLIPTIN (TRADJENTA) 5 MG TABLET PO SCH (08:29)
[2018-04-08] MEDS: ASPIRIN E.C. 81 MG (ECOTRIN) TAB PO SCH (08:29)
[2018-04-08] MEDS: BENZONATATE 100 MG (TESSALON) CAPSULE PO SCH ×3 (08:29→21:02)
[2018-04-08] MEDS: SPIRONOLACTONE 25 MG (ALDACTONE) TAB PO SCH (08:29)
[2018-04-08] MEDS: guaiFENesin (MUCINEX) 600 MG TAB PO SCH ×2 (08:29→21:03)
[2018-04-08] MEDS: AMIODARONE 200 MG (CORDARONE) TAB PO SCH (08:29)
[2018-04-08] MEDS: lisINopril 10 MG (PRINIVIL) TABLET PO SCH (08:29)
[2018-04-08] MEDS: MICONAZOLE 2% POWDER (DESENEX AF) 90 GM TOP SCH ×2 (08:33→21:12)
--- NOTE | 2018-04-08 09:19 | Cardiology Progress Note ---
Cardiology SOAP Progress Note Subjective: No chest pain or shortness of breath Objective: I&O/Vital Signs 04/08/18 04:31 Temp 96.4 Pulse 60 Resp 16 B/P (MAP) 114/68 (83) Pulse Ox 95 04/08/18 00:00 Intake Total 800 ml Balance 800 ml Weight (Pounds): 215 Weight (Ounces): 0.6 Weight (Calculated Kilograms): 97.710615 Constitutional: appears stated age, AAO x 3; No apparent distress; well- developed, well-nourished Respiratory: No accessory muscle use, No respiratory distress, No chest tender , No chest expansion is symmetric; chest is bilaterally symmetric; No lungs clear to percussion; lungs clear to auscultation; No crackles, No rhonchi, No rales, No stridor, No wheezing, No pleural rub, No other Cardiovascular: regular rate-rhythm; No irregularly irregular, No extra beats, No parasternal heave is noted, No JVD, No edema, No bradycardia, No tachycardia , No point of maximal impulse, No cardiac thrills are palpable; S1 and S2; No gallop/S3, No gallop/S4, No diastolic murmur, No systolic murmur, No friction rub, No click, No other Gastrointestional: No tender, No soft, No round, No distended, No pulsatile mass, No organomegaly, No guarding, No rebound, No tenderness, No hernia, No mass, No audible bowel sounds, No abnormal bowel sounds, No abdominal bruits, No spleenomegaly, No other Extremities: No normal range of motion, No non-tender, No normal inspection, No pedal edema, No calf tenderness, No normal capillary refill, No pelvis stable , No calf tenderness, No inflammation, No pedal edema, No slow capillary refill , No swelling, No other, No abrasion, No clubbing, No cyanosis, No ecchymosis, No laceration, No no lower extremity edema bilateral, No significant edema, No tenderness, No wound Neurologic/Psychiatric: no motor/sensory deficits, alert, normal mood/affect, oriented x 3, power is 5/5 both on sides Skin: No rash, No ulcerations Results/Procedures: Labs Laboratory Tests 04/07/18 12:05: Glucometer 66L 04/07/18 16:34: Glucometer 124H 04/07/18 20:18: Glucometer 155H 04/08/18 05:35: Glucometer 75 A/P: Assessment/Dx: Severe cardiomyopathy, chronic systolic congestive heart failure, Atrial fibrillation, Status post ICD, Inpatient rehabilitation. Plan: Severe cardiomyopathy, acute systolic congestive heart failure, significantly improved. Aspirin, lisinopril, Aldactone, Bumex. Hopefully we can gradually start low-dose beta lana as well; currently heart rate is 60 BPM therefore not starting yet. Atrial fibrillation: We'll continue to follow. Amiodarone, Eliquis. Hyperlipidemia: Continue simvastatin ICD: [place] device. Inpatient rehabilitation Thank you for your consultation. Please call me if you have any questions. Jas Ramesh MD, FACP, FACC, FSCAI, FHRS, CCDS Interventional Cardiology Cardiac Electrophysiology Vascular Medicine and Endovascular Interventions Jonny RAMESH MD April 08, 2018 9:19 am
--- NOTE | 2018-04-08 13:20 | Occupational Ther Daily Note ---
OT Current Status-Daily Note Subjective No pain reported. Appearance Pt. up in chair. Agrees to shower. Mental Status/Objective Patient Orientation: Person, Place, Time, Situation Functional [place] Measure 0=Not Assessed/NA 4=Minimal Assistance 1=Total Assistance 5=Supervision or Setup 2=Maximal Assistance 6=Modified [place] 3=Moderate Assistance 7=Complete [place] ADL-Treatment Functional [place] Measure 0=Not Assessed/NA 4=Minimal Assistance 1=Total Assistance 5=Supervision or Setup 2=Maximal Assistance 6=Modified [place] 3=Moderate Assistance 7=Complete IndependenceIRFPAI Quality Coding Scale 6 Independent with activity with or without an assistive device 5 Patient requires set up or clean up by helper. Patient completes activity by themselves 4 Supervision or touching assist (CGA). [place] provide cues , steadying assist 3 The helper provides less than half the effort to complete the activity 2 The helper provides more than half the effort to complete the activity 1 Dependent. The helper does all the effort to complete an activity 7 Patient refused to complete or attempt activity 9 The patient did not perform the activity before the current illness or injury 88 Not attempted due to Medical conditions or safety concerns Grooming (FIM): 5 (SBA to brush teeth at sink.) Oral Hygiene (QC): 4 Bathing (FIM): 4 (Min assist to wash rear sourav area.) Shower/Bathe Self (QC): 4 Upper Body (FIM): 5 Upper Body Dressing (QC): 4 Lower Body Dressing (FIM): 5 Lower Body Dressing (QC): 4 On/Off Footwear (QC): 4 Toileting (FIM): 2 (Pt. had BM. Unable to cleanse rear sourav area. OT did this for her.) Toileting Hygiene (QC): 2 Transfers (B, C, W/C) (FIM): 5 Toilet/Commode Transfer (FIM): 5 Toilet Transfer (QC): 5 Shower Transfer(FIM): 5 Education OT Patient Education: Correct positioning, Modified ADL techniques, Progress toward Goal/Update tx plan, Purpose of tx/functional activities, Reviewed precautions, Rehab process, Transfer techniques Teaching Recipient: Patient Teaching Methods: Demonstration, Discussion Response to Teaching: Verbalize Understanding, Return Demonstration OT Short Term Goals Short Term Goals Transfers (B,C,W/C) (FIM): 5 1=Demonstrate adherence to instructed precautions during ADL tasks. 2=Patient will verbalize/demonstrate understanding of assistive devices/ modifications for ADL. 3=Patient will improve strength/tolerance for activity to enable patient to perform ADL's. OT Engineering Design Manager Goals Engineering Design Manager Goals Time Frame: April 17, 2018 Eating (FIM): 6 Eating (QC): 6 Groomin Oral Hygiene (QC): 6 Bathing(FIM): 5 Shower/Bathe Self (QC): 5 Upper Body Dressing(FIM): 6 Upper Body Dressing (QC): 6 Lower Body Dressing(FIM): 6 Lower Body Dressing (QC): 6 On/Off Footwear (QC): 6 Toileting(FIM): 6 Toileting Hygiene (QC): 6 Transfers (B,C,W/C) (FIM): 6 Toilet/Commode Transfer(FIM): 6 Toilet/Commode Transfer (QC): 6 Shower Transfer(FIM): 5 Additional Goals: 1-Demonstrate ADL Tasks, 2-Verbalize Understanding, 3- ImproveStrength/[place] 1=Demonstrate adherence to instructed precautions during ADL tasks. 2=Patient will verbalize/demonstrate understanding of assistive devices/ modifications for ADL. 3=Patient will improve strength/tolerance for activity to enable patient to perform ADL's. OT Education/Plan Problem List/Assessment Assessment: Decreased Activ Tolerance, Impaired I ADL's, Impaired Self-Care Skills Discharge Recommendations Plan/Recommendations: Continue POC Therapy D/C Recommendations: Home w/ Family Support, Occupational Therapy Home Care Target Placement Home with spouse support. Treatment Plan/Plan of Care Treatment,Training & Education: Yes Patient would benefit from OT for education, treatment and training to promote independence in ADL's, mobility, safety and/or upper extremity function for ADL' s. Plan of Care: ADL Retraining, Functional Mobility, Group Exercise/Act as Ind, UE Funct Exercise/Act Treatment Duration: April 17, 2018 Frequency: At least 5 of 7 days/Wk (IRF) Estimated Hrs Per Day: 1.5 hours per day Agreement: Yes Rehab Potential: Good Time/GCodes Start Time: 09:15 Stop Time: 10:15 Total Time Billed (hr/min): 60 Billed Treatment Time 1, ADL x 4 SHAR STEWART OT April 08, 2018 13:20
--- NOTE | 2018-04-08 14:31 | Physical Therapy Daily Note ---
PT Daily Note-Current Subjective Pt. agrees to Rx. States her personal goal is to be able to walk without a FWW when she leaves here. States she doesnt like to wear shoes b/c she cant feel things under or near her feet with them on. Pain Numeric Pain Scale: 0-No Pain Mental Status Patient Orientation: Normal For Age Transfers Functional [place] Measure 0=Not Assessed/NA 4=Minimal Assistance 1=Total Assistance 5=Supervision or Setup 2=Maximal Assistance 6=Modified [place] 3=Moderate Assistance 7=Complete IndependenceIRFPAI Quality Coding Scale 6 Independent with activity with or without an assistive device 5 Patient requires set up or clean up by helper. Patient completes activity by themselves 4 Supervision or touching assist (CGA). Mobile provide cues , steadying assist 3 The helper provides less than half the effort to complete the activity 2 The helper provides more than half the effort to complete the activity 1 Dependent. The helper does all the effort to complete an activity 7 Patient refused to complete or attempt activity 9 The patient did not perform the activity before the current illness or injury 88 Not attempted due to Medical conditions or safety concerns Transfers (B, C, W/C) (FIM): 6 Scootin Rollin Supine to/from Sit: 6 Sit to/from Stand: 6 Bed to/from Chair: 6 Gait Training Does the Patient Walk?: Yes Gait (FIM): 5 Distance (FIM): 3=150 ft (160x3) Gait Level of Assist: 5 Gait Persons Needed: 1 Gait Assistive Device: FWW 150 ft with FWW, 150 ft without AD as pt. scored 51/56 on CHAUDHRY and has desire to be without AD at [place] if possible Wheelchair Training Does the Pt Use a Wheelchair?: No Stair Training Stair Training: Handrails/: 2 handrails Stairs (FIM): 4 #of Steps: 12 Stairs: Pattern: Reciprocal Level of Assist: 4 pt. unsure about which LE feels weaker and how to manage sequence of steps Exercises Supine Ex: Bridging, Ankle pumps, Quad Set, Rolling, Heel Slides, Short Arc Quads, Scooting, Straight leg raise, Hip abd/add Supine Reps: 12 Treatments CHAUDHRY completed at 51/56. full test in hard chart Assessment Current Status: Good Progress PT Short Term Goals Short Term Goals Time Frame: April 10, 2018 Transfers (B,C,W/C) (FIM): 5 Gait (FIM): 4 (met) Gait Distance Comment: 150' Gait Level of Assist: 4 Gait Assistive Device: FWW PT Shelter Goals Shelter Goals PT Shelter Goals Time Frame: April 24, 2018 Transfers (B,C,W/C) (FIM): 6 Sit to Lying (QC): 6 Lying-Sitting on Side/Bed(QC): 6 Sit to Stand (QC): 6 Rollin Roll Left to Right (QC): 6 Chair/Muu-fe-Qcknj Xfer(QC): 6 Car Transfer (QC): 6 Gait (FIM): 5 Distance: 150' Walk 10 feet (QC): 4 Walk 10ft-Uneven Surface(QC): 4 Walk 50ft with 2 Turns (QC): 4 Walk 150 ft (QC): 4 Gait Level of Assist: 5 Gait Assistive Device: FWW Stairs (FIM): 2 # of Steps: 4 1 Step (curb) (QC): 4 4 Steps (QC): 4 Stairs Level Of Assist: 4 PT Plan Treatment/Plan Treatment Plan: Continue Plan of Care Treatment Plan: Bed Mobility, Education, Functional Activity [place], Functional Strength, Group Therapy, Gait, Safety, Therapeutic Exercise, Transfers Treatment Duration: April 24, 2018 Frequency: At least 5 of 7 days/Wk (IRF) Estimated Hrs Per Day: 1.5 hours per day Patient and/or Family Agrees t: Yes Safety Risks/Education Patient Education: Gait Training, Transfer Techniques, Steps Teaching Recipient: Patient Teaching Methods: Demonstration, Discussion Response to Teaching: Return Demonstration, Reinforcement Needed Time/GCodes Time In: 1015 Time Out: 1100 Total Billed Treatment Time: 45 Total Billed Treatment 1,GT20m,NM25m G Codes Necessary: CROW Alvarez ETL SOFTWARE ENGINEER April 08, 2018 14:31
--- NOTE | 2018-04-08 15:02 | Therapy Group Daily Note ---
Therapy Daily Group Note Patient Education Topic Home Safety, Fall Prevention Other/Notes [facility]. Group consisted of introductions (name, place from, word of advice for people starting out in the field they worked in), socialization and home safety education. Pt was able to introduce self appropriately then actively listened to peers. Pt was able to contribute to surrounding conversations with peers. Pt verbalized strategies for home safety and gave examples of safety in the home. Pt then ambulated back to room using FWW. After group, pt lying in bed with call light/phone in reach. All needs met in room. Start Time: 13:00 Stop Time: 14:20 Total Billed Treatment Time: 80 Total Billed Treatment 1-GRP DAREN CORDOBA April 08, 2018 15:01
[2018-04-08 18:45] VITALS: BP 95/52
[2018-04-08] MEDS: SIMvastatin 20 MG (ZOCOR) TAB PO SCH (21:02)
--- NOTE | 2018-04-08 21:08 | PM & R (SOAP) Progress Note ---
Subjective This was a face to face visit with the patient. Date Seen by Provider: April 08, 2018 Time Seen by Provider: 20:50 Subjective/Events-last exam Patient was seen in her room this evening Patient Modified Independent for transfers Appreciate Dr Love note and orders Objective Physician Exam Last Set of Vital Signs Vital Signs Date Time Temp Pulse Resp B/P (MAP) Pulse Ox O2 Delivery O2 Flow Rate FiO2 04/08/18 09:00 Room Air 04/08/18 04:31 96.4 60 16 114/68 (83) 95 04/07/18 07:54 1.00 Capillary Refill : I&O Intake and Output 04/08/18 00:00 Intake Total 1150 ml Balance 1150 ml Intake Oral 1150 ml # Voids 9 # Bowel Movements 2 General: Alert, Oriented X3, Cooperative, No Acute Distress HEENT: Atraumatic, PERRLA, EOMI, Mucous Memb Moist/[place], Other (whitish discoloration on tongue) Neck: Supple, No JVD Lungs: Clear to Auscultation Heart: Regular Rate Abdomen: Normal Bowel Sounds, Soft, No Tenderness Extremities: No Edema Skin: Other (Pacemaker incision site healing well) Neuro: Other (Generalized weakness) Results Lab Data Laboratory Tests 04/05/18 21:14: Glucometer 143H 04/06/18 11:12: Glucometer 81 04/06/18 16:14: Glucometer 141H 04/06/18 20:22: Glucometer 204H 04/06/18 21:59: Glucometer 153H 04/07/18 04:48: Glucometer 79 04/07/18 12:05: Glucometer 66L 04/07/18 16:34: Glucometer 124H 04/07/18 20:18: Glucometer 155H 04/08/18 05:35: Glucometer 75 04/08/18 11:58: Glucometer 102 04/08/18 16:12: Glucometer 139H Assessment/Plan Assessment and Plan General debil secondary to A FIB with RVR with associated Cardiogenic shock Acute resp failure treated Hypothroidism on replacement PAF treated Morbid obesity Nonischemic cardiomyopathy Acute systolic heart failure treated Hyponatremia resolved HLP statin DM controlled Oral Thrush treated S/P left shoulder surgery Maceration/ulcer RT Lower abdominal wall-Dr Kincaid has addressed Plan Continue PT/OT/Wound care care Team Conference 04/10/18 (1) PAF (paroxysmal atrial fibrillation) Status: Acute Co-Morbidities that are continuing to impact the rehab process: (include details ) DOUG MAX MD April 08, 2018 21:08
[2018-04-08 21:13] VITALS: BP 113/65
[2018-04-09 06:18] VITALS: BP 129/72
[2018-04-09] MEDS: inSUlin ASPART (NovoLOG) 1 UNIT/0.01 ML (CHARGE PER UNIT) SC SCH ×4 (06:18→21:00)
[2018-04-09] MEDS: inSUlin DETERMIR 1 UNIT/0.01 ML (LEVEMIR) CHARGE PER UNIT SQ SCH ×2 (06:30→17:01)
[2018-04-09] MEDS: metFORMIN 500 MG (GLUCOPHAGE) TAB PO SCH ×2 (06:30→17:00)
[2018-04-09] MEDS: LEVOTHYROXINE 125 MCG (LEVOTHROID) TABLET PO SCH (06:30)
[2018-04-09] MEDS: GLIMEPIRIDE 2 MG (AMARYL) TAB PO SCH ×2 (06:30→17:00)
[2018-04-09] MEDS: KCL 20 MEQ TAB (K-DUR) PO SCH (06:30)
[2018-04-09] MEDS: APIXABAN 5 MG (ELIQUIS) TABLET PO SCH ×2 (07:45→20:31)
[2018-04-09] MEDS: BUMETANIDE 1 MG (BUMEX) TAB PO SCH (07:45)
[2018-04-09] MEDS: DIGOXIN 62.5 MCG (LANOXIN) TAB PO SCH (07:45)
[2018-04-09] MEDS: lisINopril 10 MG (PRINIVIL) TABLET PO SCH (07:45)
[2018-04-09] MEDS: BENZONATATE 100 MG (TESSALON) CAPSULE PO SCH ×3 (07:46→20:31)
[2018-04-09] MEDS: guaiFENesin (MUCINEX) 600 MG TAB PO SCH ×2 (07:46→20:31)
[2018-04-09] MEDS: LINAGLIPTIN (TRADJENTA) 5 MG TABLET PO SCH (07:46)
[2018-04-09] MEDS: ASPIRIN E.C. 81 MG (ECOTRIN) TAB PO SCH (07:46)
[2018-04-09] MEDS: PARoxetine 20 MG (PAXIL) TAB PO SCH (07:46)
[2018-04-09] MEDS: AMIODARONE 200 MG (CORDARONE) TAB PO SCH (07:46)
[2018-04-09] MEDS: SPIRONOLACTONE 25 MG (ALDACTONE) TAB PO SCH (07:46)
[2018-04-09] MEDS: MICONAZOLE 2% POWDER (DESENEX AF) 90 GM TOP PRN (07:47)
[2018-04-09] MEDS: MICONAZOLE 2% POWDER (DESENEX AF) 90 GM TOP SCH ×2 (07:47→20:31)
--- NOTE | 2018-04-09 08:24 | Physical Therapy Daily Note ---
PT Daily Note-Current Subjective Agreeable to PT. No complaints. Pain Numeric Pain Scale: 0-No Pain Location: No Pain Reported Mental Status Patient Orientation: Person, Place, Time, Situation Transfers Functional [place] Measure 0=Not Assessed/NA 4=Minimal Assistance 1=Total Assistance 5=Supervision or Setup 2=Maximal Assistance 6=Modified [place] 3=Moderate Assistance 7=Complete IndependenceIRFPAI Quality Coding Scale 6 Independent with activity with or without an assistive device 5 Patient requires set up or clean up by helper. Patient completes activity by themselves 4 Supervision or touching assist (CGA). [place] provide cues , steadying assist 3 The helper provides less than half the effort to complete the activity 2 The helper provides more than half the effort to complete the activity 1 Dependent. The helper does all the effort to complete an activity 7 Patient refused to complete or attempt activity 9 The patient did not perform the activity before the current illness or injury 88 Not attempted due to Medical conditions or safety concerns Transfers (B, C, W/C) (FIM): 4 sit to stand multiple times for transfers on/off chairs for gait preparation. Pt toileted with min -CGa for transfers. Gait Training Does the Patient Walk?: Yes Gait (FIM): 4 Distance (FIM): 3=150 ft Distance: 150 ft x 2 50 ft x 2 Gait Assistive Device: FWW slow gait and needs rest breaks periodically. Treatments Functional mobility to progress functional activity tolerance. Assessment Current Status: Good Progress Progressing in strength and mobility. PT Short Term Goals Short Term Goals Time Frame: April 10, 2018 Transfers (B,C,W/C) (FIM): 5 Gait (FIM): 4 (met) Gait Distance Comment: 150' Gait Level of Assist: 4 Gait Assistive Device: FWW PT Critical Power Technician Goals Prison Goals PT Prison Goals Time Frame: April 24, 2018 Transfers (B,C,W/C) (FIM): 6 Sit to Lying (QC): 6 Lying-Sitting on Side/Bed(QC): 6 Sit to Stand (QC): 6 Rollin Roll Left to Right (QC): 6 Chair/Nab-yz-Hsjog Xfer(QC): 6 Car Transfer (QC): 6 Gait (FIM): 5 Distance: 150' Walk 10 feet (QC): 4 Walk 10ft-Uneven Surface(QC): 4 Walk 50ft with 2 Turns (QC): 4 Walk 150 ft (QC): 4 Gait Level of Assist: 5 Gait Assistive Device: FWW Stairs (FIM): 2 # of Steps: 4 1 Step (curb) (QC): 4 4 Steps (QC): 4 Stairs Level Of Assist: 4 PT Plan Problem List Problem List: Activity Tolerance, Functional Strength, Safety Treatment/Plan Treatment Plan: Continue Plan of Care Treatment Plan: Bed Mobility, Education, Functional Activity Chap[place], Functional Strength, Group Therapy, Gait, Safety, Therapeutic Exercise, Transfers Treatment Duration: April 24, 2018 Frequency: At least 5 of 7 days/Wk (IRF) Estimated Hrs Per Day: 1.5 hours per day Patient and/or Family Agrees t: Yes Safety Risks/Education Patient Education: Transfer Techniques, Safety Issues Teaching Recipient: Patient Teaching Methods: Demonstration, Discussion Response to Teaching: Reinforcement Needed Time/GCodes Time In: 1400 Time Out: 1430 Total Billed Treatment Time: 30 Total Billed Treatment this is a late entry for 04/04/18 visit FA 30 DAREN POWERS PT April 09, 2018 08:24
--- NOTE | 2018-04-09 09:52 | Cardiology Progress Note ---
Cardiology SOAP Progress Note Subjective: No shortness of breath. Objective: I&O/Vital Signs 04/08/18 04/09/18 22:55 06:18 Temp 97.9 Pulse 60 Resp 17 B/P (MAP) 129/72 (91) Pulse Ox 94 O2 Delivery Room Air Room Air 04/09/18 00:00 Intake Total 1020 ml Output Total 1000 ml Balance 20 ml Weight (Pounds): 207 Weight (Ounces): 6.4 Weight (Calculated Kilograms): 94.658050 Constitutional: appears stated age, AAO x 3; No apparent distress; well- developed, well-nourished Respiratory: No accessory muscle use, No respiratory distress, No chest tender , No chest expansion is symmetric; chest is bilaterally symmetric; No lungs clear to percussion; lungs clear to auscultation; No crackles, No rhonchi, No rales, No stridor, No wheezing, No pleural rub, No other Cardiovascular: regular rate-rhythm; No irregularly irregular, No extra beats, No parasternal heave is noted, No JVD, No edema, No bradycardia, No tachycardia , No point of maximal impulse, No cardiac thrills are palpable; S1 and S2; No gallop/S3, No gallop/S4, No diastolic murmur, No systolic murmur, No friction rub, No click, No other Gastrointestional: No tender, No soft, No round, No distended, No pulsatile mass, No organomegaly, No guarding, No rebound, No tenderness, No hernia, No mass, No audible bowel sounds, No abnormal bowel sounds, No abdominal bruits, No spleenomegaly, No other Extremities: No normal range of motion, No non-tender, No normal inspection, No pedal edema, No calf tenderness, No normal capillary refill, No pelvis stable , No calf tenderness, No inflammation, No pedal edema, No slow capillary refill , No swelling, No other, No abrasion, No clubbing, No cyanosis, No ecchymosis, No laceration, No no lower extremity edema bilateral, No significant edema, No tenderness, No wound Neurologic/Psychiatric: no motor/sensory deficits, alert, normal mood/affect, oriented x 3, power is 5/5 both on sides Skin: No rash, No ulcerations Results/Procedures: Labs Laboratory Tests 04/08/18 11:58: Glucometer 102 04/08/18 16:12: Glucometer 139H 04/08/18 21:03: Glucometer 266H 04/09/18 06:15: Glucometer 83 A/P: Assessment/Dx: Severe cardiomyopathy, chronic systolic congestive heart failure, Atrial fibrillation, Status post ICD, Inpatient rehabilitation. Plan: Severe cardiomyopathy, acute systolic congestive heart failure, significantly improved. Aspirin, lisinopril, Aldactone, Bumex. Hopefully we can gradually start low-dose beta lana as well; currently heart rate is 60 BPM therefore not starting yet. Atrial fibrillation: We'll continue to follow. Amiodarone, Eliquis. Hyperlipidemia: Continue simvastatin ICD: [place] device. Inpatient rehabilitation Thank you for your consultation. Please call me if you have any questions. Jas Ramesh MD, FACP, FACC, FSCAI, FHRS, CCDS Interventional Cardiology Cardiac Electrophysiology Vascular Medicine and Endovascular Interventions Jonny RAMESH MD April 09, 2018 9:52 am
--- NOTE | 2018-04-09 09:53 | Physical Therapy Daily Note ---
PT Daily Note-Current Subjective Pt sitting in recliner upon arrival. Pt agrees to PT. Pain Location: No Pain Reported Mental Status Patient Orientation: Person, Place, Time, Situation Transfers Functional [place] Measure 0=Not Assessed/NA 4=Minimal Assistance 1=Total Assistance 5=Supervision or Setup 2=Maximal Assistance 6=Modified [place] 3=Moderate Assistance 7=Complete IndependenceIRFPAI Quality Coding Scale 6 Independent with activity with or without an assistive device 5 Patient requires set up or clean up by helper. Patient completes activity by themselves 4 Supervision or touching assist (CGA). [place] provide cues , steadying assist 3 The helper provides less than half the effort to complete the activity 2 The helper provides more than half the effort to complete the activity 1 Dependent. The helper does all the effort to complete an activity 7 Patient refused to complete or attempt activity 9 The patient did not perform the activity before the current illness or injury 88 Not attempted due to Medical conditions or safety concerns Scootin Sit to/from Stand: 6 Sit to Stand (QC): 6 Weight Bearing Right Lower Extremity: Right Full Weight Bearing Left Lower Extremity: Left Full Weight Bearing Gait Training Does the Patient Walk?: Yes Distance (FIM): 3=150 ft Distance: 250' Walk 10 feet (QC): 6 Walk 50 ft with 2 Turns(QC): 6 Walk 150 ft (QC): 6 Gait Level of Assist: 6 Gait Persons Needed: 1 Gait Assistive Device: None Pt has slow naman, steady w/ no LOB. Wheelchair Training Does the Pt Use a Wheelchair?: No Stair Training Stair Training: Handrails/: 2 handrails #of Steps: 12 1 Step (curb) (QC): 6 4 Steps (QC): 6 12 Steps (QC): 6 Stairs: Pattern: Step to Level of Assist: 6 Treatments Pt transfers from recliner w/o AD at Mod I. Pt ambulates about room to get clothes and then to restroom. After toileting & dressing, Pt ambulates in hallway then to Therapy Gym using FWW at Mod I. Pt completes 3 sets of stairs with both handrails at Mod I. Pt takes short rest then ambulates in hallway before returning to room to rest in recliner. Pt has all needs met, including call light in hand at end of tx. Assessment Current Status: Good Progress Pt ambulates well w/o AD and is wanting to discharge w/o AD. Pt fatigues a little after 3 sets of stairs but recovers quickly. PT Short Term Goals Short Term Goals Time Frame: April 10, 2018 Transfers (B,C,W/C) (FIM): 5 Gait (FIM): 4 (met) Gait Distance Comment: 150' Gait Level of Assist: 4 Gait Assistive Device: FWW PT Snf Goals Snf Goals PT Diesel Service Apprentice Goals Time Frame: April 24, 2018 Transfers (B,C,W/C) (FIM): 6 Sit to Lying (QC): 6 Lying-Sitting on Side/Bed(QC): 6 Sit to Stand (QC): 6 Rollin Roll Left to Right (QC): 6 Chair/Lvt-ke-Gxtsx Xfer(QC): 6 Car Transfer (QC): 6 Gait (FIM): 5 Distance: 150' Walk 10 feet (QC): 4 Walk 10ft-Uneven Surface(QC): 4 Walk 50ft with 2 Turns (QC): 4 Walk 150 ft (QC): 4 Gait Level of Assist: 5 Gait Assistive Device: FWW Stairs (FIM): 2 # of Steps: 4 1 Step (curb) (QC): 4 4 Steps (QC): 4 Stairs Level Of Assist: 4 PT Plan Problem List Problem List: Activity Tolerance Treatment/Plan Treatment Plan: Continue Plan of Care Treatment Plan: Bed Mobility, Education, Functional Activity [place], Functional Strength, Group Therapy, Gait, Safety, Therapeutic Exercise, Transfers Treatment Duration: April 24, 2018 Frequency: At least 5 of 7 days/Wk (IRF) Estimated Hrs Per Day: 1.5 hours per day Patient and/or Family Agrees t: Yes Safety Risks/Education Patient Education: Gait Training, Steps, Correct Positioning, Safety Issues Teaching Recipient: Patient Teaching Methods: Discussion Response to Teaching: Verbalize Understanding Time/GCodes Time In: 845 Time Out: 930 Total Billed Treatment Time: 45 Total Billed Treatment 1, GT (20m) & FA x2 (25m) G Codes Necessary: JIM Bautista BACKBREAKER April 09, 2018 09:53
--- NOTE | 2018-04-09 15:19 | Physical Therapy Daily Note ---
PT Daily Note-Current Subjective Pt sitting in recliner upon arrival. Pt agrees to PT. Pain Location: No Pain Reported Mental Status Patient Orientation: Person, Place, Time, Situation Transfers Functional [place] Measure 0=Not Assessed/NA 4=Minimal Assistance 1=Total Assistance 5=Supervision or Setup 2=Maximal Assistance 6=Modified [place] 3=Moderate Assistance 7=Complete IndependenceIRFPAI Quality Coding Scale 6 Independent with activity with or without an assistive device 5 Patient requires set up or clean up by helper. Patient completes activity by themselves 4 Supervision or touching assist (CGA). [place] provide cues , steadying assist 3 The helper provides less than half the effort to complete the activity 2 The helper provides more than half the effort to complete the activity 1 Dependent. The helper does all the effort to complete an activity 7 Patient refused to complete or attempt activity 9 The patient did not perform the activity before the current illness or injury 88 Not attempted due to Medical conditions or safety concerns Scootin Sit to/from Stand: 6 Sit to Stand (QC): 6 Weight Bearing Right Lower Extremity: Right Full Weight Bearing Left Lower Extremity: Left Full Weight Bearing Gait Training Does the Patient Walk?: Yes Distance (FIM): 3=150 ft Distance: 250' Walk 10 feet (QC): 5 Walk 50 ft with 2 Turns(QC): 5 Walk 150 ft (QC): 5 Gait Level of Assist: 5 Gait Persons Needed: 1 Gait Assistive Device: None Pt has slow but steady naman, no LOB. Pt fatigues and takes rest break before continuing ambulation. Wheelchair Training Does the Pt Use a Wheelchair?: No Exercises Seated Therapy Exercises: Ankle pumps, Long arc quads, Hip flexion, Kicking activity, Hip abd/add Seated Reps: 20 Treatments Pt transfers from recliner to standing w/o AD at Mod I. Pt ambulates in hallway w/o AD at SBA for fatigue. Pt takes rest break during ambulation before continuing. Pt completes Seated Ex in chair. Pt returns to room to use restroom and rest in recliner. Pt has all needs met at end of tx, including call light in hand. Assessment Current Status: Good Progress Pt fatigues during walk but recovers quickly. PT Short Term Goals Short Term Goals Time Frame: April 10, 2018 Transfers (B,C,W/C) (FIM): 5 Gait (FIM): 4 (met) Gait Distance Comment: 150' Gait Level of Assist: 4 Gait Assistive Device: FWW PT Alf Goals Applied Research Director Goals PT Alf Goals Time Frame: April 24, 2018 Transfers (B,C,W/C) (FIM): 6 Sit to Lying (QC): 6 Lying-Sitting on Side/Bed(QC): 6 Sit to Stand (QC): 6 Rollin Roll Left to Right (QC): 6 Chair/Cuo-pj-Leqfk Xfer(QC): 6 Car Transfer (QC): 6 Gait (FIM): 5 Distance: 150' Walk 10 feet (QC): 4 Walk 10ft-Uneven Surface(QC): 4 Walk 50ft with 2 Turns (QC): 4 Walk 150 ft (QC): 4 Gait Level of Assist: 5 Gait Assistive Device: FWW Stairs (FIM): 2 # of Steps: 4 1 Step (curb) (QC): 4 4 Steps (QC): 4 Stairs Level Of Assist: 4 PT Plan Problem List Problem List: Activity Tolerance Treatment/Plan Treatment Plan: Continue Plan of Care Treatment Plan: Bed Mobility, Education, Functional Activity [place], Functional Strength, Group Therapy, Gait, Safety, Therapeutic Exercise, Transfers Treatment Duration: April 24, 2018 Frequency: At least 5 of 7 days/Wk (IRF) Estimated Hrs Per Day: 1.5 hours per day Patient and/or Family Agrees t: Yes Safety Risks/Education Patient Education: Gait Training, Transfer Techniques, Correct Positioning, Safety Issues Teaching Recipient: Patient Teaching Methods: Discussion Response to Teaching: Verbalize Understanding Time/GCodes Time In: 1345 Time Out: 1430 Total Billed Treatment Time: 45 Total Billed Treatment 1, GT (20m), EX (15m) & FA (10m) G Codes Necessary: JIM Bautista MIDDLE SCHOOL DIRECTOR April 09, 2018 15:19
--- NOTE | 2018-04-09 15:23 | PM & R (SOAP) Progress Note ---
Subjective This was a face to face visit with the patient. Date Seen by Provider: April 09, 2018 Time Seen by Provider: 08:05 Subjective/Events-last exam Patient was seen in her room this AM Endurance improving PatienT Modified Independent for transfers Accuccheks noted will trend Discussed case with DR Ramesh this AM Discharge possible by end of week Appreciate Dr Mchugh note and Orders re Toprol Objective Physician Exam Last Set of Vital Signs Vital Signs Date Time Temp Pulse Resp B/P (MAP) Pulse Ox O2 Delivery O2 Flow Rate FiO2 04/09/18 08:00 Room Air 04/09/18 06:18 97.9 60 17 129/72 (91) 94 04/07/18 07:54 1.00 Capillary Refill : I&O Intake and Output 04/09/18 00:00 Intake Total 1560 ml Output Total 1000 ml Balance 560 ml Intake Oral 1560 ml Output Urine Total 1000 ml # Voids 2 # Bowel Movements 1 General: Alert, Oriented X3, Cooperative, No Acute Distress HEENT: Atraumatic, PERRLA, EOMI, Mucous Memb Moist/[place], Other (whitish discoloration on tongue) Neck: Supple, No JVD Lungs: Clear to Auscultation Heart: Regular Rate Abdomen: Normal Bowel Sounds, Soft, No Tenderness Extremities: No Edema Skin: Other (Pacemaker incision site healing well) Neuro: Other (Generalized weakness) Results Lab Data Laboratory Tests 04/06/18 16:14: Glucometer 141H 04/06/18 20:22: Glucometer 204H 04/06/18 21:59: Glucometer 153H 04/07/18 04:48: Glucometer 79 04/07/18 12:05: Glucometer 66L 04/07/18 16:34: Glucometer 124H 04/07/18 20:18: Glucometer 155H 04/08/18 05:35: Glucometer 75 04/08/18 11:58: Glucometer 102 04/08/18 16:12: Glucometer 139H 04/08/18 21:03: Glucometer 266H 04/09/18 06:15: Glucometer 83 04/09/18 11:14: Glucometer 109 Assessment/Plan Assessment and Plan General debil secondary to A FIB with RVR with associated cardiogenic shock Acute resp failure treated Hypothyroidism on replacement PAF treated Morbid obesity Nonischemic cardiomyopathy Acute Systolic heart Failure treated Hyponatremia resolved HLP on statin DM controlled with varying Accucheks adjust as needed Oral Thrush treated S/P left shoulder surgery Maceration with ulcer RT Lower Abdominal wall DR Kincaid has addressed with topical care Plan Continue PT/Ot/Wound care F/U with Cardiology Team Conference tomorrow Probable discharge by end of week (1) PAF (paroxysmal atrial fibrillation) Status: Acute Co-Morbidities that are continuing to impact the rehab process: (include details ) DOUG MAX MD April 09, 2018 15:23
--- NOTE | 2018-04-09 16:00 | Occupational Ther Daily Note ---
OT Current Status-Daily Note Subjective No pain reported. Appearance Pt. made up ad angie in room as discussed with PT and pt. Mental Status/Objective Patient Orientation: Person, Place, Time, Situation Functional [place] Measure 0=Not Assessed/NA 4=Minimal Assistance 1=Total Assistance 5=Supervision or Setup 2=Maximal Assistance 6=Modified [place] 3=Moderate Assistance 7=Complete [place] ADL-Treatment Functional [place] Measure 0=Not Assessed/NA 4=Minimal Assistance 1=Total Assistance 5=Supervision or Setup 2=Maximal Assistance 6=Modified [place] 3=Moderate Assistance 7=Complete IndependenceIRFPAI Quality Coding Scale 6 Independent with activity with or without an assistive device 5 Patient requires set up or clean up by helper. Patient completes activity by themselves 4 Supervision or touching assist (CGA). [place] provide cues , steadying assist 3 The helper provides less than half the effort to complete the activity 2 The helper provides more than half the effort to complete the activity 1 Dependent. The helper does all the effort to complete an activity 7 Patient refused to complete or attempt activity 9 The patient did not perform the activity before the current illness or injury 88 Not attempted due to Medical conditions or safety concerns Transfers (B, C, W/C) (FIM): 7 (Pt. demonstrated ability to walk around therapy area without walker, with independence.) Pt. up in therapy area. Completed 15 minutes on armbike at min resistance. Pt. stopped at each 5 minutes, and OT checked sats. Sats always at 94-96%. HR at 60. Tolerated this well. Pt. then practiced kitchen task with independence. Educated pt. on kitchen safety, energy conservation, and making tasks easier. Pt. verbalizes understanding. Pt. and OT then ambulated with multiple rest breaks, to [facility] area, as well as gift shop area on first floor. Pt. sat to regain endurance, and able to finish all tasks. Pt. ambulated back to room. All needs met back in room. Education OT Patient Education: Correct positioning, Exercise program, Modified ADL techniques, Progress toward Goal/Update tx plan, Purpose of tx/functional activities, Reviewed precautions, Rehab process, Transfer techniques Teaching Recipient: Patient Teaching Methods: Demonstration, Discussion Response to Teaching: Verbalize Understanding, Return Demonstration OT Short Term Goals Short Term Goals Transfers (B,C,W/C) (FIM): 5 1=Demonstrate adherence to instructed precautions during ADL tasks. 2=Patient will verbalize/demonstrate understanding of assistive devices/ modifications for ADL. 3=Patient will improve strength/tolerance for activity to enable patient to perform ADL's. OT Scalloper Goals Retirement Goals Time Frame: April 17, 2018 Eating (FIM): 6 Eating (QC): 6 Groomin Oral Hygiene (QC): 6 Bathing(FIM): 5 Shower/Bathe Self (QC): 5 Upper Body Dressing(FIM): 6 Upper Body Dressing (QC): 6 Lower Body Dressing(FIM): 6 Lower Body Dressing (QC): 6 On/Off Footwear (QC): 6 Toileting(FIM): 6 Toileting Hygiene (QC): 6 Transfers (B,C,W/C) (FIM): 6 Toilet/Commode Transfer(FIM): 6 Toilet/Commode Transfer (QC): 6 Shower Transfer(FIM): 5 Additional Goals: 1-Demonstrate ADL Tasks, 2-Verbalize Understanding, 3- ImproveStrength/[place] 1=Demonstrate adherence to instructed precautions during ADL tasks. 2=Patient will verbalize/demonstrate understanding of assistive devices/ modifications for ADL. 3=Patient will improve strength/tolerance for activity to enable patient to perform ADL's. OT Education/Plan Problem List/Assessment Assessment: Decreased Activ Tolerance Discharge Recommendations Plan/Recommendations: Continue POC Therapy D/C Recommendations: Home w/ Family Support Treatment Plan/Plan of Care Treatment,Training & Education: Yes Patient would benefit from OT for education, treatment and training to promote independence in ADL's, mobility, safety and/or upper extremity function for ADL' s. Plan of Care: ADL Retraining, Functional Mobility, Group Exercise/Act as Ind, UE Funct Exercise/Act Treatment Duration: April 17, 2018 Frequency: At least 5 of 7 days/Wk (IRF) Estimated Hrs Per Day: 1.5 hours per day Agreement: Yes Rehab Potential: Good Time/GCodes Start Time: 09:45 Stop Time: 11:15 Total Time Billed (hr/min): 90 Billed Treatment Time 1, Ex x 30minutes, FA x 30minutes, ADL x 30minutes SHAR STEWART OT April 09, 2018 16:00
[2018-04-09 16:27] VITALS: BP 125/66
[2018-04-09] MEDS: SIMvastatin 20 MG (ZOCOR) TAB PO SCH (20:31)
[2018-04-09] MEDS: ACETAMINOPHEN 500 MG TAB (TYLENOL) PO PRN (20:37)
[2018-04-10 06:03] VITALS: BP 103/66
[2018-04-10] MEDS: inSUlin ASPART (NovoLOG) 1 UNIT/0.01 ML (CHARGE PER UNIT) SC SCH ×4 (06:09→21:07)
[2018-04-10] MEDS: metFORMIN 500 MG (GLUCOPHAGE) TAB PO SCH ×2 (06:10→16:30)
[2018-04-10] MEDS: GLIMEPIRIDE 2 MG (AMARYL) TAB PO SCH ×2 (06:10→16:30)
[2018-04-10] MEDS: LEVOTHYROXINE 125 MCG (LEVOTHROID) TABLET PO SCH (06:11)
[2018-04-10] MEDS: KCL 20 MEQ TAB (K-DUR) PO SCH (06:12)
[2018-04-10] MEDS: inSUlin DETERMIR 1 UNIT/0.01 ML (LEVEMIR) CHARGE PER UNIT SQ SCH ×2 (06:14→16:32)
[2018-04-10 07:08] LABS: CALCIUM 10.1 MG/DL (8.5-10.1); CREATININE SERUM 1.49 MG/DL (0.60-1.30); MAGNESIUM 1.8 MG/DL (1.8-2.4); POTASSIUM 5.3 MMOL/L (3.6-5.0)
--- NOTE | 2018-04-10 09:00 | Physical Therapy Daily Note ---
PT Daily Note-Current Subjective Pt. in bed upon arrival. Agrees to Rx. States she still has pain in left reverse total shoulder and has some difficulty coming up from side to sit on it but even more from right shoulder Pain Numeric Pain Scale: 3 Location: Left Location Body Site: Shoulder Pain Description: Ache Comment: during TRF Mental Status Patient Orientation: Normal For Age Transfers Functional [place] Measure 0=Not Assessed/NA 4=Minimal Assistance 1=Total Assistance 5=Supervision or Setup 2=Maximal Assistance 6=Modified [place] 3=Moderate Assistance 7=Complete IndependenceIRFPAI Quality Coding Scale 6 Independent with activity with or without an assistive device 5 Patient requires set up or clean up by helper. Patient completes activity by themselves 4 Supervision or touching assist (CGA). [place] provide cues , steadying assist 3 The helper provides less than half the effort to complete the activity 2 The helper provides more than half the effort to complete the activity 1 Dependent. The helper does all the effort to complete an activity 7 Patient refused to complete or attempt activity 9 The patient did not perform the activity before the current illness or injury 88 Not attempted due to Medical conditions or safety concerns Transfers (B, C, W/C) (FIM): 6 Scootin Rollin Supine to/from Sit: 6 Sit to/from Stand: 6 Bed to/from Chair: 6 Weight Bearing Right Lower Extremity: Right Full Weight Bearing Left Lower Extremity: Left Full Weight Bearing Gait Training Does the Patient Walk?: Yes Gait (FIM): 6 Distance (FIM): 3=150 ft (160x3) Gait Level of Assist: 6 Gait Persons Needed: 0 Gait Assistive Device: None up ad angie, figure 8s, side steps etc, Stair Training Stair Training: Handrails/: 2 handrails Stairs (FIM): 6 #of Steps: 12 Stairs: Pattern: Step to Level of Assist: 6 discussed safest sequence Exercises Supine Ex: Bridging, Ankle pumps, Quad Set, Rolling, Glut sets, Heel Slides, Short Arc Quads, Scooting, Straight leg raise, Hip abd/add Supine Reps: 12 NuStep Minutes: 12 NuStep Workload: 5 Assessment Current Status: Good Progress no LOB PT Short Term Goals Short Term Goals Time Frame: April 10, 2018 Transfers (B,C,W/C) (FIM): 5 Gait (FIM): 4 (met) Gait Distance Comment: 150' Gait Level of Assist: 4 Gait Assistive Device: FWW PT [employer] Sales Representative Goals Halfway Goals PT [employer] Sales Representative Goals Time Frame: April 24, 2018 Transfers (B,C,W/C) (FIM): 6 Sit to Lying (QC): 6 Lying-Sitting on Side/Bed(QC): 6 Sit to Stand (QC): 6 Rollin Roll Left to Right (QC): 6 Chair/Ias-wo-Ftusb Xfer(QC): 6 Car Transfer (QC): 6 Gait (FIM): 5 Distance: 150' Walk 10 feet (QC): 4 Walk 10ft-Uneven Surface(QC): 4 Walk 50ft with 2 Turns (QC): 4 Walk 150 ft (QC): 4 Gait Level of Assist: 5 Gait Assistive Device: FWW Stairs (FIM): 2 # of Steps: 4 1 Step (curb) (QC): 4 4 Steps (QC): 4 Stairs Level Of Assist: 4 PT Plan Treatment/Plan Treatment Plan: Continue Plan of Care Treatment Plan: Bed Mobility, Education, Functional Activity [place], Functional Strength, Group Therapy, Gait, Safety, Therapeutic Exercise, Transfers Treatment Duration: April 24, 2018 Frequency: At least 5 of 7 days/Wk (IRF) Estimated Hrs Per Day: 1.5 hours per day Patient and/or Family Agrees t: Yes Safety Risks/Education Patient Education: Gait Training, Transfer Techniques, Steps Teaching Recipient: Patient Teaching Methods: Demonstration Response to Teaching: Verbalize Understanding, Return Demonstration Time/GCodes Time In: 800 Time Out: 900 Total Billed Treatment Time: 60 Total Billed Treatment 1,[id number] G Codes Necessary: CROW Alvarez VINEYARD WORKER April 10, 2018 09:00
[2018-04-10] MEDS: LINAGLIPTIN (TRADJENTA) 5 MG TABLET PO SCH (09:09)
[2018-04-10] MEDS: ASPIRIN E.C. 81 MG (ECOTRIN) TAB PO SCH (09:09)
[2018-04-10] MEDS: BENZONATATE 100 MG (TESSALON) CAPSULE PO SCH ×3 (09:09→21:11)
[2018-04-10] MEDS: DIGOXIN 62.5 MCG (LANOXIN) TAB PO SCH (09:09)
[2018-04-10] MEDS: guaiFENesin (MUCINEX) 600 MG TAB PO SCH ×2 (09:09→21:11)
[2018-04-10] MEDS: lisINopril 10 MG (PRINIVIL) TABLET PO SCH (09:09)
[2018-04-10] MEDS: BUMETANIDE 1 MG (BUMEX) TAB PO SCH (09:09)
[2018-04-10] MEDS: AMIODARONE 200 MG (CORDARONE) TAB PO SCH (09:10)
[2018-04-10] MEDS: PARoxetine 20 MG (PAXIL) TAB PO SCH (09:10)
[2018-04-10] MEDS: APIXABAN 5 MG (ELIQUIS) TABLET PO SCH ×2 (09:10→21:11)
[2018-04-10] MEDS: SPIRONOLACTONE 25 MG (ALDACTONE) TAB PO SCH (09:10)
[2018-04-10] MEDS: MICONAZOLE 2% POWDER (DESENEX AF) 90 GM TOP SCH ×2 (09:13→21:11)
--- NOTE | 2018-04-10 09:29 | PM & R (SOAP) Progress Note ---
Subjective This was a face to face visit with the patient. Date Seen by Provider: April 10, 2018 Time Seen by Provider: 08:10 Subjective/Events-last exam Patient was seen in her room this AM Patient Modified Independent for transfers Objective Physician Exam Last Set of Vital Signs Vital Signs Date Time Temp Pulse Resp B/P (MAP) Pulse Ox O2 Delivery O2 Flow Rate FiO2 04/10/18 08:16 Nasal Cannula 1.00 04/10/18 06:03 97.4 60 19 103/66 (78) 91 Capillary Refill : I&O Intake and Output 04/10/18 00:00 Intake Total 1110 ml Output Total 650 ml Balance 460 ml Intake Oral 1110 ml Output Urine Total 650 ml # Voids 4 # Bowel Movements 2 General: Alert, Oriented X3, Cooperative, No Acute Distress HEENT: Atraumatic, PERRLA, EOMI, Mucous Memb Moist/[place], Other (whitish discoloration on tongue) Neck: Supple, No JVD Lungs: Clear to Auscultation Heart: Regular Rate Abdomen: Normal Bowel Sounds, Soft, No Tenderness Extremities: No Edema Skin: Other (Pacemaker incision site healing well) Neuro: Other (Generalized weakness) Results Lab Data Laboratory Tests 04/07/18 12:05: Glucometer 66L 04/07/18 16:34: Glucometer 124H 04/07/18 20:18: Glucometer 155H 04/08/18 05:35: Glucometer 75 04/08/18 11:58: Glucometer 102 04/08/18 16:12: Glucometer 139H 04/08/18 21:03: Glucometer 266H 04/09/18 06:15: Glucometer 83 04/09/18 11:14: Glucometer 109 04/09/18 16:26: Glucometer 126H 04/09/18 20:42: Glucometer 123H 04/10/18 05:46: Glucometer 71 04/10/18 06:37: Sodium Level 135, Potassium Level 5.3H, Chloride Level 97L, Carbon Dioxide Level 26, Anion Gap 12, Blood Urea Nitrogen 54H, Creatinine 1.49H, Estimat Glomerular Filtration Rate 35, BUN/Creatinine Ratio 36, Glucose Level 85, Calcium Level 10.1, Magnesium Level 1.8 Assessment/Plan Assessment and Plan General debil secondary to A FIB with RVR with associated Cardiogenic shock Acute resp failure treated Hypothyroidism on replacement PAF Treated Morbid obesity Nonischemic cardiomyopathy Acute syslolic heart failure treated Hyponatremia resolved HLP on statin DM controlled Oral Thrush treated S/P left shoulder surgery Maceration /ulcer Rt Lower abdominal wall Dr Kincaid has adreesed with topical care. Plan Continue PT/Ot/WOUND care Team Conference later today-See report for full functional update and POC and ELOS Probable discharge by end of week (1) PAF (paroxysmal atrial fibrillation) Status: Acute Co-Morbidities that are continuing to impact the rehab process: (include details ) DOUG MAX MD April 10, 2018 09:29
--- NOTE | 2018-04-10 13:29 | Occupational Ther Daily Note ---
OT Current Status-Daily Note Subjective No pain reported. Appearance Pt. is up on side of bed. Declines showering, but agrees to work with OT. Mental Status/Objective Patient Orientation: Person, Place, Time, Situation Functional [place] Measure 0=Not Assessed/NA 4=Minimal Assistance 1=Total Assistance 5=Supervision or Setup 2=Maximal Assistance 6=Modified [place] 3=Moderate Assistance 7=Complete [place] ADL-Treatment Functional [place] Measure 0=Not Assessed/NA 4=Minimal Assistance 1=Total Assistance 5=Supervision or Setup 2=Maximal Assistance 6=Modified [place] 3=Moderate Assistance 7=Complete IndependenceIRFPAI Quality Coding Scale 6 Independent with activity with or without an assistive device 5 Patient requires set up or clean up by helper. Patient completes activity by themselves 4 Supervision or touching assist (CGA). [place] provide cues , steadying assist 3 The helper provides less than half the effort to complete the activity 2 The helper provides more than half the effort to complete the activity 1 Dependent. The helper does all the effort to complete an activity 7 Patient refused to complete or attempt activity 9 The patient did not perform the activity before the current illness or injury 88 Not attempted due to Medical conditions or safety concerns Toileting (FIM): 6 Toileting Hygiene (QC): 6 Transfers (B, C, W/C) (FIM): 7 Toilet/Commode Transfer (FIM): 6 Toilet Transfer (QC): 6 Other Treatment Pt. is already dressed. Pt. is up ad angie in room. Pt. ambulates to bathroom and completed toileting task. Ambulated to therapy gym with increased time needed. Completed 3 sets of 5 minutes at min resistance on armbike. Tolerated these well with no shortness of breath. Did require several rest breaks. Ambulated back to room. Talked with pt. about discharge home. Pt. would like to discharge on Sunday, as her spouse will be home. Pt. does not feel that she needs to work on anything in particular for training before discharge. Pt. is educated about taking care of herself. Educated on importance of energy conservation, exercise, and heart healthy diet. All needs met in room. Education OT Patient Education: Correct positioning, Exercise program, Progress toward Goal/Update tx plan, Purpose of tx/functional activities, Reviewed precautions, Rehab process, Transfer techniques Teaching Recipient: Patient Teaching Methods: Demonstration, Discussion Response to Teaching: Verbalize Understanding, Return Demonstration OT Short Term Goals Short Term Goals Transfers (B,C,W/C) (FIM): 5 1=Demonstrate adherence to instructed precautions during ADL tasks. 2=Patient will verbalize/demonstrate understanding of assistive devices/ modifications for ADL. 3=Patient will improve strength/tolerance for activity to enable patient to perform ADL's. OT Button Grader Goals Mcc Goals Time Frame: April 17, 2018 Eating (FIM): 6 Eating (QC): 6 Groomin Oral Hygiene (QC): 6 Bathing(FIM): 5 Shower/Bathe Self (QC): 5 Upper Body Dressing(FIM): 6 Upper Body Dressing (QC): 6 Lower Body Dressing(FIM): 6 Lower Body Dressing (QC): 6 On/Off Footwear (QC): 6 Toileting(FIM): 6 Toileting Hygiene (QC): 6 Transfers (B,C,W/C) (FIM): 6 Toilet/Commode Transfer(FIM): 6 Toilet/Commode Transfer (QC): 6 Shower Transfer(FIM): 5 Additional Goals: 1-Demonstrate ADL Tasks, 2-Verbalize Understanding, 3- ImproveStrength/[place] 1=Demonstrate adherence to instructed precautions during ADL tasks. 2=Patient will verbalize/demonstrate understanding of assistive devices/ modifications for ADL. 3=Patient will improve strength/tolerance for activity to enable patient to perform ADL's. OT Education/Plan Problem List/Assessment Assessment: Decreased Activ Tolerance Discharge Recommendations Plan/Recommendations: Continue POC Therapy D/C Recommendations: Home w/ Family Support Treatment Plan/Plan of Care Treatment,Training & Education: Yes Patient would benefit from OT for education, treatment and training to promote independence in ADL's, mobility, safety and/or upper extremity function for ADL' s. Plan of Care: ADL Retraining, Functional Mobility, Group Exercise/Act as Ind, UE Funct Exercise/Act Treatment Duration: April 17, 2018 Frequency: At least 5 of 7 days/Wk (IRF) Estimated Hrs Per Day: 1.5 hours per day Agreement: Yes Rehab Potential: Good Time/GCodes Start Time: 10:45 Stop Time: 11:45 Total Time Billed (hr/min): 60 Billed Treatment Time 1, Ex x 30minutes, FA x 30minutes SHAR STEWART OT April 10, 2018 13:29
--- NOTE | 2018-04-10 13:43 | Cardiology Progress Note ---
Cardiology SOAP Progress Note Subjective: No shortness of breath Objective: I&O/Vital Signs 04/10/18 04/10/18 06:03 08:16 Temp 97.4 Pulse 60 Resp 19 B/P (MAP) 103/66 (78) Pulse Ox 91 O2 Delivery Room Air Nasal Cannula O2 Flow Rate 1.00 04/10/18 00:00 Intake Total 960 ml Balance 960 ml Weight (Pounds): 205 Weight (Ounces): 14.4 Weight (Calculated Kilograms): 93.986372 Constitutional: appears stated age, AAO x 3; No apparent distress; well- developed, well-nourished Respiratory: No accessory muscle use, No respiratory distress, No chest tender , No chest expansion is symmetric; chest is bilaterally symmetric; No lungs clear to percussion; lungs clear to auscultation; No crackles, No rhonchi, No rales, No stridor, No wheezing, No pleural rub, No other Cardiovascular: regular rate-rhythm; No irregularly irregular, No extra beats, No parasternal heave is noted, No JVD, No edema, No bradycardia, No tachycardia , No point of maximal impulse, No cardiac thrills are palpable; S1 and S2; No gallop/S3, No gallop/S4, No diastolic murmur, No systolic murmur, No friction rub, No click, No other Gastrointestional: No tender, No soft, No round, No distended, No pulsatile mass, No organomegaly, No guarding, No rebound, No tenderness, No hernia, No mass, No audible bowel sounds, No abnormal bowel sounds, No abdominal bruits, No spleenomegaly, No other Extremities: No normal range of motion, No non-tender, No normal inspection, No pedal edema, No calf tenderness, No normal capillary refill, No pelvis stable , No calf tenderness, No inflammation, No pedal edema, No slow capillary refill , No swelling, No other, No abrasion, No clubbing, No cyanosis, No ecchymosis, No laceration, No no lower extremity edema bilateral, No significant edema, No tenderness, No wound Neurologic/Psychiatric: no motor/sensory deficits, alert, normal mood/affect, oriented x 3, power is 5/5 both on sides Skin: No rash, No ulcerations Results/Procedures: Labs Laboratory Tests 04/09/18 16:26: Glucometer 126H 04/09/18 20:42: Glucometer 123H 04/10/18 05:46: Glucometer 71 04/10/18 06:37: Sodium Level 135, Potassium Level 5.3H, Chloride Level 97L, Carbon Dioxide Level 26, Anion Gap 12, Blood Urea Nitrogen 54H, Creatinine 1.49H, Estimat Glomerular Filtration Rate 35, BUN/Creatinine Ratio 36, Glucose Level 85, Calcium Level 10.1, Magnesium Level 1.8 04/10/18 11:02: Glucometer 104 A/P: Assessment/Dx: Severe cardiomyopathy, chronic systolic congestive heart failure, Atrial fibrillation, Status post ICD, Inpatient rehabilitation. Plan: Severe cardiomyopathy, acute systolic congestive heart failure, significantly improved. Aspirin, lisinopril, Aldactone, Bumex. Hopefully we can gradually start low-dose beta lana as well; currently heart rate is 60 BPM therefore not starting yet. Atrial fibrillation: We'll continue to follow. Amiodarone, Eliquis. Hyperlipidemia: Continue simvastatin ICD: [place] device. Inpatient rehabilitation Thank you for your consultation. Please call me if you have any questions. Jas Ramesh MD, FACP, FACC, FSCAI, FHRS, CCDS Interventional Cardiology Cardiac Electrophysiology Vascular Medicine and Endovascular Interventions Jonny RAMESH MD April 10, 2018 1:43 pm
--- NOTE | 2018-04-10 14:32 | Therapy Group Daily Note ---
Therapy Daily Group Note Patient Education Topic Other List Below (Spine anatomy, health, posture and strengthening and stretching exercises) Other/Notes Pt. participated in group PT OT session. Pt. came/went with FWW and SBA. Education regarding spinal health, anatomy and posture was taught utilizing glenda line and spine model. Pts. contributed personal experiences and participated in spine and trunk exercises and stretches. Pt. to room after with anglin at hand. Start Time: 13:00 Stop Time: 14:10 Total Billed Treatment Time: 70 Total Billed Treatment 1,GRP CROW [place] MACHINE OPERATOR April 10, 2018 14:32
[2018-04-10 17:30] VITALS: BP 118/74
[2018-04-10] MEDS: ACETAMINOPHEN 500 MG TAB (TYLENOL) PO PRN (17:49)
[2018-04-10] MEDS: SIMvastatin 20 MG (ZOCOR) TAB PO SCH (21:11)
[2018-04-11 05:48] VITALS: BP 109/67
[2018-04-11] MEDS: inSUlin ASPART (NovoLOG) 1 UNIT/0.01 ML (CHARGE PER UNIT) SC SCH ×2 (05:48→12:21)
[2018-04-11] MEDS: LEVOTHYROXINE 125 MCG (LEVOTHROID) TABLET PO SCH (06:02)
[2018-04-11] MEDS: KCL 20 MEQ TAB (K-DUR) PO SCH (06:02)
[2018-04-11] MEDS: metFORMIN 500 MG (GLUCOPHAGE) TAB PO SCH (06:02)
[2018-04-11] MEDS: GLIMEPIRIDE 2 MG (AMARYL) TAB PO SCH (06:02)
[2018-04-11] MEDS: inSUlin DETERMIR 1 UNIT/0.01 ML (LEVEMIR) CHARGE PER UNIT SQ SCH (06:02)
--- NOTE | 2018-04-11 08:48 | PM & R (SOAP) Progress Note ---
Subjective This was a face to face visit with the patient. Date Seen by Provider: April 11, 2018 Time Seen by Provider: 08:10 Subjective/Events-last exam Patient was seen in her room this AM Has progressed well Discharge set for tomorrow to home with [facility] in [place] Labs noted DM beter controlled Serum K elevated and patient on K and Spironolactone will recheck labs Patient Modified Independent for transfers and gait Objective Physician Exam Last Set of Vital Signs Vital Signs Date Time Temp Pulse Resp B/P (MAP) Pulse Ox O2 Delivery O2 Flow Rate FiO2 04/11/18 08:25 Nasal Cannula 1.00 04/11/18 05:48 97.6 62 19 109/67 (81) 90 Capillary Refill : I&O Intake and Output 04/11/18 00:00 Intake Total 1730 ml Output Total 600 ml Balance 1130 ml Intake Oral 1730 ml Output Urine Total 600 ml # Voids 8 General: Alert, Oriented X3, Cooperative, No Acute Distress HEENT: Atraumatic, PERRLA, EOMI, Mucous Memb Moist/[place], Other (whitish discoloration on tongue) Neck: Supple, No JVD Lungs: Clear to Auscultation Heart: Regular Rate Abdomen: Normal Bowel Sounds, Soft, No Tenderness Extremities: No Edema Skin: Other (Pacemaker incision site healing well) Neuro: Other (Generalized weakness) Results Lab Data Laboratory Tests 04/08/18 11:58: Glucometer 102 04/08/18 16:12: Glucometer 139H 04/08/18 21:03: Glucometer 266H 04/09/18 06:15: Glucometer 83 04/09/18 11:14: Glucometer 109 04/09/18 16:26: Glucometer 126H 04/09/18 20:42: Glucometer 123H 04/10/18 05:46: Glucometer 71 04/10/18 06:37: Sodium Level 135, Potassium Level 5.3H, Chloride Level 97L, Carbon Dioxide Level 26, Anion Gap 12, Blood Urea Nitrogen 54H, Creatinine 1.49H, Estimat Glomerular Filtration Rate 35, BUN/Creatinine Ratio 36, Glucose Level 85, Calcium Level 10.1, Magnesium Level 1.8 04/10/18 11:02: Glucometer 104 04/10/18 16:12: Glucometer 122H 04/10/18 20:53: Glucometer 150H 04/11/18 05:45: Glucometer 63L Assessment/Plan Assessment and Plan OA left knee s/p Left TKR DR Venegas Postop anemia Postop resp insufficiency weaned Postop nausea resolved DM better controlled DVT Prophylaxis on Lovenox SubCUT Hyperkalemia on K supplement and K sparing Diuretic Plan Continue PT/OT/CPM Discharge tomorrow with [facility] Recheck Chem See orders (1) PAF (paroxysmal atrial fibrillation) Status: Acute Co-Morbidities that are continuing to impact the rehab process: (include details ) DOUG MAX MD April 11, 2018 08:48
--- NOTE | 2018-04-11 08:57 | Physical Therapy Daily Note ---
PT Daily Note-Current Subjective Pt. agrees to rx. States she wants to go home today. Has been away from home for over 30 days and her will be here at noon and she would like to leave with him. Pain Numeric Pain Scale: 3 Location: Left Location Body Site: Shoulder Pain Description: Ache Mental Status Patient Orientation: Normal For Age Transfers Functional [place] Measure 0=Not Assessed/NA 4=Minimal Assistance 1=Total Assistance 5=Supervision or Setup 2=Maximal Assistance 6=Modified [place] 3=Moderate Assistance 7=Complete IndependenceIRFPAI Quality Coding Scale 6 Independent with activity with or without an assistive device 5 Patient requires set up or clean up by helper. Patient completes activity by themselves 4 Supervision or touching assist (CGA). [place] provide cues , steadying assist 3 The helper provides less than half the effort to complete the activity 2 The helper provides more than half the effort to complete the activity 1 Dependent. The helper does all the effort to complete an activity 7 Patient refused to complete or attempt activity 9 The patient did not perform the activity before the current illness or injury 88 Not attempted due to Medical conditions or safety concerns Transfers (B, C, W/C) (FIM): 6 Scootin Rollin Roll Left to Right (QC): 6 Supine to/from Sit: 6 Sit to/from Stand: 6 Sit to Lying (QC): 6 Sit to Stand (QC): 6 Chair/Dyx-jk-Vybds Xfer(QC): 6 Bed to/from Chair: 6 Car Transfer (QC): 6 Weight Bearing Right Lower Extremity: Right Full Weight Bearing Left Lower Extremity: Left Full Weight Bearing Gait Training Does the Patient Walk?: Yes Gait (FIM): 6 Distance (FIM): 3=150 ft (200,150) Walk 10 feet (QC): 6 Walk 50 ft with 2 Turns(QC): 6 Walk 150 ft (QC): 6 Walking 10ft/uneven surface-QC: 6 Gait Level of Assist: 6 Gait Persons Needed: 0 Gait Assistive Device: FWW safest mode of gait with FWW, energy conserving, pt. ambulated on grades and sidewalks this date as well as carpets and threshholds with no LOB or incident Stair Training Stair Training: Handrails/: 2 handrails Stairs (FIM): 5 #of Steps: 4 1 Step (curb) (QC): 5 4 Steps (QC): 5 Stairs: Pattern: Step to Level of Assist: 5 SBA and cues only Balance Picking up an Object (QC): 4 Exercises Seated Therapy Exercises: Ankle pumps, Sit to stand, Long arc quads, Hip flexion, Hip abd/add Seated Reps: 10 Treatments manuevered on off elevators, gait on grades and sidewalks , up/ down curb Assessment Current Status: Good Progress meets goals PT Short Term Goals Short Term Goals Time Frame: April 10, 2018 Transfers (B,C,W/C) (FIM): 5 Gait (FIM): 4 (met) Gait Distance Comment: 150' Gait Level of Assist: 4 Gait Assistive Device: FWW PT Epic Anesthesia Analyst Goals Mcfp Goals PT Epic Anesthesia Analyst Goals Time Frame: April 24, 2018 Transfers (B,C,W/C) (FIM): 6 Sit to Lying (QC): 6 Lying-Sitting on Side/Bed(QC): 6 Sit to Stand (QC): 6 Rollin Roll Left to Right (QC): 6 Chair/Jgq-on-Synlp Xfer(QC): 6 Car Transfer (QC): 6 Gait (FIM): 5 Distance: 150' Walk 10 feet (QC): 4 Walk 10ft-Uneven Surface(QC): 4 Walk 50ft with 2 Turns (QC): 4 Walk 150 ft (QC): 4 Gait Level of Assist: 5 Gait Assistive Device: FWW Stairs (FIM): 2 # of Steps: 4 1 Step (curb) (QC): 4 4 Steps (QC): 4 Stairs Level Of Assist: 4 PT Plan Treatment/Plan Treatment Plan: Continue Plan of Care Treatment Plan: Bed Mobility, Education, Functional Activity [place], Functional Strength, Group Therapy, Gait, Safety, Therapeutic Exercise, Transfers Treatment Duration: April 24, 2018 Frequency: At least 5 of 7 days/Wk (IRF) Estimated Hrs Per Day: 1.5 hours per day Patient and/or Family Agrees t: Yes Safety Risks/Education Patient Education: Gait Training, Transfer Techniques, Steps, Correct Positioning, Disease Process, Safety Issues Teaching Recipient: Patient Teaching Methods: Demonstration, Discussion Response to Teaching: Verbalize Understanding, Return Demonstration Time/GCodes Time In: 800 Time Out: 900 Total Billed Treatment Time: 60 Total Billed Treatment 1,FA35m,GT25m G Codes Necessary: No LUEBBER, CROW A INSPECTOR AND CLIPPER April 11, 2018 08:57
--- NOTE | 2018-04-11 09:13 | PM & R (SOAP) Progress Note ---
Subjective This was a face to face visit with the patient. Date Seen by Provider: April 11, 2018 Time Seen by Provider: 08:10 Subjective/Events-last exam Patient was seen in her room this AM Patient Modified Independent for transfers and gait with FWW Has progressed well Discharge set for tomorrow to home with spouse patient states that PCP is DR Cummings in [facility] Current labs reviewed K elevated will receheck patient on K replacement and K sparing diuretic Objective Physician Exam Last Set of Vital Signs Vital Signs Date Time Temp Pulse Resp B/P (MAP) Pulse Ox O2 Delivery O2 Flow Rate FiO2 04/11/18 08:25 Nasal Cannula 1.00 04/11/18 05:48 97.6 62 19 109/67 (81) 90 Capillary Refill : I&O Intake and Output 04/11/18 00:00 Intake Total 1730 ml Output Total 600 ml Balance 1130 ml Intake Oral 1730 ml Output Urine Total 600 ml # Voids 8 General: Alert, Oriented X3, Cooperative, No Acute Distress HEENT: Atraumatic, PERRLA, EOMI, Mucous Memb Moist/[place], Other (whitish discoloration on tongue) Neck: Supple, No JVD Lungs: Clear to Auscultation Heart: Regular Rate Abdomen: Normal Bowel Sounds, Soft, No Tenderness Extremities: No Edema Skin: Other (Pacemaker incision site healing well) Neuro: Other (Generalized weakness) Results Lab Data Laboratory Tests 04/08/18 11:58: Glucometer 102 04/08/18 16:12: Glucometer 139H 04/08/18 21:03: Glucometer 266H 04/09/18 06:15: Glucometer 83 04/09/18 11:14: Glucometer 109 04/09/18 16:26: Glucometer 126H 04/09/18 20:42: Glucometer 123H 04/10/18 05:46: Glucometer 71 04/10/18 06:37: Sodium Level 135, Potassium Level 5.3H, Chloride Level 97L, Carbon Dioxide Level 26, Anion Gap 12, Blood Urea Nitrogen 54H, Creatinine 1.49H, Estimat Glomerular Filtration Rate 35, BUN/Creatinine Ratio 36, Glucose Level 85, Calcium Level 10.1, Magnesium Level 1.8 04/10/18 11:02: Glucometer 104 04/10/18 16:12: Glucometer 122H 04/10/18 20:53: Glucometer 150H 04/11/18 05:45: Glucometer 63L Assessment/Plan Assessment and Plan General debil secondary to A FIB with RVR with associated Cardiogenic shock Acute resp failure treated Hypothroidism on replacement PAF treated Morbid obesity Nonischemic cardiomyopathy Acute systolic heart failure treated Hyponatremia resolved Hyperkalemia will recheck labas per above see orders HLP on statin DM controlled Oral thrush treated S/P left sholuder surgery Maceration/Ulcer Rt Lower abdominal wall Dr Kincaid has addressed with topical care Plan Continue PT/OT Team Conference held yesterday see report for full functional update and POC Discharge set for tomorrow to home with spouse with C Current meds reviewed. Recheck Chem See orders F/U with DR Cummings PCP and Cardiology. (1) PAF (paroxysmal atrial fibrillation) Status: Acute Co-Morbidities that are continuing to impact the rehab process: (include details ) DOUG MAX MD April 11, 2018 09:13
[2018-04-11] MEDS ORDERED: SPIR25TA3 PO (09:22)
[2018-04-11] MEDS ORDERED: APIX5TAB PO (09:22)
[2018-04-11] MEDS ORDERED: AMIO200T2 PO (09:22)
[2018-04-11] MEDS ORDERED: MICO90PO TOP (09:22)
[2018-04-11] MEDS ORDERED: DIGO-20 PO (09:22)
[2018-04-11] MEDS ORDERED: ASPI-983 PO (09:22)
[2018-04-11] MEDS ORDERED: POTA20TA8 PO (09:22)
[2018-04-11] MEDS ORDERED: BUME1TAB4 PO (09:22)
[2018-04-11] MEDS ORDERED: METO-387 PO (09:22)
[2018-04-11] MEDS: BENZONATATE 100 MG (TESSALON) CAPSULE PO SCH (09:45)
[2018-04-11] MEDS: APIXABAN 5 MG (ELIQUIS) TABLET PO SCH (09:45)
[2018-04-11] MEDS: LINAGLIPTIN (TRADJENTA) 5 MG TABLET PO SCH (09:46)
[2018-04-11] MEDS: ASPIRIN E.C. 81 MG (ECOTRIN) TAB PO SCH (09:46)
[2018-04-11] MEDS: guaiFENesin (MUCINEX) 600 MG TAB PO SCH (09:46)
[2018-04-11] MEDS: BUMETANIDE 1 MG (BUMEX) TAB PO SCH (09:46)
[2018-04-11] MEDS: AMIODARONE 200 MG (CORDARONE) TAB PO SCH (09:46)
[2018-04-11] MEDS: DIGOXIN 62.5 MCG (LANOXIN) TAB PO SCH (09:46)
[2018-04-11] MEDS: lisINopril 10 MG (PRINIVIL) TABLET PO SCH (09:46)
[2018-04-11] MEDS: PARoxetine 20 MG (PAXIL) TAB PO SCH (09:48)
[2018-04-11] MEDS: MICONAZOLE 2% POWDER (DESENEX AF) 90 GM TOP SCH (09:52)
[2018-04-11] MEDS: SPIRONOLACTONE 25 MG (ALDACTONE) TAB PO SCH (09:52)
--- NOTE | 2018-04-11 11:13 | D/C HH Face to Face Order ---
D/C Face to Face Orders Instructions for Patient Discharge Diet for Home: Regular Diet Patient Data-Allergies,Ht & Wt Patient Allergies: Coded Allergies: Latex (Verified Allergy, Intermediate, HIVES, 04/13/09) Penicillins (Verified Allergy, Mild, "I GO TO SLEEP", 04/13/09) Height (Feet): 5 Height (Inches): 0.00 Weight (Pounds): 205 Weight (Ounces): 12.8 Home Health Need/Face to Face Clinical Findings: Generalized weakness and fatigue, Muscle weakness, Unsteady gait I have seen Pt pwry-iu-[id number]: Yes Discharged To: Home Patient is Homebound due to: Muscle weakness Homebound Status Due to the above stated illness, injury or surgical procedure (medical condition or diagnosis) and associated clinical findings, the patient is homebound because of his/her inability to leave home except with aid of a supportive device and/or person AND leaving the home requires a considerable and taxing effort or is medically contraindicated. Pt req the following assistanc: Cane, Walker Home Health Nursing Orders Home Health Services Order: Physical Therapy-Evaluate & Treat Therapy Orders Therapy Orders: Physical Therapy Therapy Specific Orders: Eval assistive deivces, Teach enviro modifications/ safety, Gait training, Increase strength/endurance Certify Stmt I certify that this patient is under my care and that I, a nurse practitioner or a physician; a assistant baseball coach working with me, had a face to face encounter that - meets the physician face to face encounter requirements with this patient as dated. I personally scribed for DOUG MAX MD) on 04/11/18 at 11:13. Electronically submitted by Angelica Gamez ([id number]). I personally scribed for DOUG MAX MD) on 04/11/18 at 11:16. Electronically submitted by Angelica Gamez ([id number]). DOUG MAX MD April 11, 2018 11:13
--- NOTE | 2018-04-11 11:15 | D/C HH Face to Face Order ---
D/C Face to Face Orders Instructions for Patient Patient Instructions/FollowUp: [facility] Physician to follow Patient: [facility] Discharge Diet for Home: Cardiac Diet, Low Sodium Diet Patient Data-Allergies,Ht & Wt Patient Allergies: Coded Allergies: Latex (Verified Allergy, Intermediate, HIVES, 04/13/09) Penicillins (Verified Allergy, Mild, "I GO TO SLEEP", 04/13/09) Height (Feet): 5 Height (Inches): 0.00 Weight (Pounds): 205 Weight (Ounces): 12.8 Home Health Need/Face to Face Date of Face to Face: April 11, 2018 Clinical Findings: Generalized weakness and fatigue, Muscle weakness, Unsteady gait I have seen Pt [id number]: Yes Discharged To: Home Diagnosis/Conditions: Debility post cardiogenic shock Patient is Homebound due to: Muscle weakness Homebound Status Due to the above stated illness, injury or surgical procedure (medical condition or diagnosis) and associated clinical findings, the patient is homebound because of his/her inability to leave home except with aid of a supportive device and/or person AND leaving the home requires a considerable and taxing effort or is medically contraindicated. Pt req the following assistanc: Walker Home Health Nursing Orders Home Health Services Order: Physical Therapy-Evaluate & Treat PT eval only Therapy Orders Therapy Orders: Physical Therapy Therapy Specific Orders: Eval assistive deivces, Teach enviro modifications/ safety, Gait training, Increase strength/endurance Certify Stmt I certify that this patient is under my care and that I, a nurse practitioner or a physician; a project construction assistant manager working with me, had a face to face encounter that - meets the physician face to face encounter requirements with this patient as dated. I personally scribed for DOUG MAX MD) on 04/11/18 at 11:15. Electronically submitted by Angelica Gamez ([id number]). I personally scribed for DOUG MAX MD) on 04/11/18 at 11:17. Electronically submitted by Angelica Gamez ([id number]). I personally scribed for DOUG MAX MD) on 04/11/18 at 11:22. Electronically submitted by Angelica Gamez ([id number]). DOUG MAX MD April 11, 2018 11:15
[2018-04-11 11:24] LABS: ALBUMIN 4.1 GM/DL (3.2-4.5); BILIRUBIN,TOTAL 0.8 MG/DL (0.1-1.0); CALCIUM 10.1 MG/DL (8.5-10.1); CREATININE SERUM 1.69 MG/DL (0.60-1.30); POTASSIUM 5.6 MMOL/L (3.6-5.0); TOTAL PROTEIN 7.5 GM/DL (6.4-8.2)
--- NOTE | 2018-04-11 11:48 | Therapy Team Discharge Summary ---
Therapy Discharge Summary Discharge Recommendations Date of Discharge 04/11/18 Therapy D/C Recommendations: Home w/ Family Support Physical Therapy This patient was transferred to our facility from an outside hospital post acute stay for cardiogenic shock. Prior to her acute hospital stay, she was living at home with her spouse and indep with all mobility. Upon admission she was min assist with transfers, ambulated short distances with an AD and min assist, unable/unsafe to attempt steps. Treatment focused on functional strength that progressed her functional mobilyt, safety and balance. she has made excellent progress and has achieved all goals to a satisfactory level. She is mod indep with gait and transfers; able to go up household distance stairs without assist. She is anxious to discharge home and voiced that she feels ready to go today. Pt to discharge home with [facility] support to follow as needed. DC PT. Occupational Therapy Decreased Activ Tolerance PT Manager Audit Goals [facility] Goals PT Manager Audit Goals Time Frame: April 24, 2018 Transfers (B,C,W/C) (FIM): 6 Roll Left to Right (QC): 6 Sit to Lying (QC): 6 Lying-Sitting on Side/Bed(QC): 6 Sit to Stand (QC): 6 Chair/Mqv-qw-Ysdyt Xfer(QC): 6 Car Transfer (QC): 6 Gait (FIM): 5 Distance: 150' Walk 10 feet (QC): 4 Walk 10ft-Uneven Surface(QC): 4 Walk 50ft with 2 Turns (QC): 4 Walk 150 ft (QC): 4 Gait Level of Assist: 5 Gait Assistive Device: FWW Stairs (FIM): 2 # of Steps: 4 1 Step (curb) (QC): 4 4 Steps (QC): 4 Stairs Level Of Assist: 4 pt has met or exceeded all goals set at evaluation. She is walking some times without an AD but prefers the FWW for safety longer distances. OT Manager Audit Goals Manager Audit Goals Time Frame: April 17, 2018 Eating (FIM): 6 Eating (QC): 6 Oral Hygiene (QC): 6 Grooming(FIM): 6 Bathing(FIM): 5 Shower/Bathe Self (QC): 5 Upper Body Dressing(FIM): 6 Upper Body Dressing (QC): 6 Lower Body Dressing(FIM): 6 Lower Body Dressing (QC): 6 On/Off Footwear (QC): 6 Toileting(FIM): 6 Toileting Hygiene (QC): 6 Transfers (B,C,W/C) (FIM): 6 Toilet/Commode Transfer(FIM): 6 Toilet/Commode Transfer (QC): 6 Shower Transfer(FIM): 5 Additional Goals: 1-Demonstrate ADL Tasks, 2-Verbalize Understanding, 3- ImproveStrength/[place] 1=Demonstrate adherence to instructed precautions during ADL tasks. 2=Patient will verbalize/demonstrate understanding of assistive devices/ modifications for ADL. 3=Patient will improve strength/tolerance for activity to enable patient to perform ADL's. DAREN POWERS PT April 11, 2018 11:48
--- NOTE | 2018-04-11 11:58 | Occupational Ther Daily Note ---
OT Current Status-Daily Note Subjective Pt. has already showered and dressed. Would like to leave today. Appearance Pt. up in chair. OT talks with her about discharge home and goals. Mental Status/Objective Patient Orientation: Person, Place, Time, Situation Functional [place] Measure 0=Not Assessed/NA 4=Minimal Assistance 1=Total Assistance 5=Supervision or Setup 2=Maximal Assistance 6=Modified [place] 3=Moderate Assistance 7=Complete [place] ADL-Treatment Functional [place] Measure 0=Not Assessed/NA 4=Minimal Assistance 1=Total Assistance 5=Supervision or Setup 2=Maximal Assistance 6=Modified [place] 3=Moderate Assistance 7=Complete IndependenceIRFPAI Quality Coding Scale 6 Independent with activity with or without an assistive device 5 Patient requires set up or clean up by helper. Patient completes activity by themselves 4 Supervision or touching assist (CGA). [place] provide cues , steadying assist 3 The helper provides less than half the effort to complete the activity 2 The helper provides more than half the effort to complete the activity 1 Dependent. The helper does all the effort to complete an activity 7 Patient refused to complete or attempt activity 9 The patient did not perform the activity before the current illness or injury 88 Not attempted due to Medical conditions or safety concerns Eating (FIM): 6 Eating (QC): 6 Grooming (FIM): 6 (per pt. report.) Oral Hygiene (QC): 6 Bathing (FIM): 6 (per pt. report. Pt. showered on her own this date. Pt. states that she has not had any issues or assist.) Shower/Bathe Self (QC): 6 Upper Body (FIM): 6 Upper Body Dressing (QC): 6 Lower Body Dressing (FIM): 9 Lower Body Dressing (QC): 6 On/Off Footwear (QC): 6 Transfers (B, C, W/C) (FIM): 7 Shower Transfer(FIM): 6 Other Treatment Pt. has been up and showered already. Has done this completely on her own, with use of the shower chair. Pt. would like to leave today. Have informed social work regarding this. Spoke with pt. regarding techniques to brush hair and put into ponytail, as pt. has limited shoulder movement. Education Response to Teaching: Verbalize Understanding OT Short Term Goals Short Term Goals Transfers (B,C,W/C) (FIM): 5 1=Demonstrate adherence to instructed precautions during ADL tasks. 2=Patient will verbalize/demonstrate understanding of assistive devices/ modifications for ADL. 3=Patient will improve strength/tolerance for activity to enable patient to perform ADL's. OT Manager Solution Goals Snf Goals Time Frame: April 17, 2018 Eating (FIM): 6 Eating (QC): 6 Groomin Oral Hygiene (QC): 6 Bathing(FIM): 5 Shower/Bathe Self (QC): 5 Upper Body Dressing(FIM): 6 Upper Body Dressing (QC): 6 Lower Body Dressing(FIM): 6 Lower Body Dressing (QC): 6 On/Off Footwear (QC): 6 Toileting(FIM): 6 Toileting Hygiene (QC): 6 Transfers (B,C,W/C) (FIM): 6 Toilet/Commode Transfer(FIM): 6 Toilet/Commode Transfer (QC): 6 Shower Transfer(FIM): 5 Additional Goals: 1-Demonstrate ADL Tasks, 2-Verbalize Understanding, 3- ImproveStrength/[place] 1=Demonstrate adherence to instructed precautions during ADL tasks. 2=Patient will verbalize/demonstrate understanding of assistive devices/ modifications for ADL. 3=Patient will improve strength/tolerance for activity to enable patient to perform ADL's. OT Education/Plan Problem List/Assessment Assessment: Decreased Activ Tolerance Discharge Recommendations Plan/Recommendations: Discharge/Goals Met Therapy D/C Recommendations: Home w/ Family Support Treatment Plan/Plan of Care Patient would benefit from OT for education, treatment and training to promote independence in ADL's, mobility, safety and/or upper extremity function for ADL' s. Plan of Care: ADL Retraining, Functional Mobility, Group Exercise/Act as Ind, UE Funct Exercise/Act Treatment Duration: April 17, 2018 Frequency: At least 5 of 7 days/Wk (IRF) Estimated Hrs Per Day: 1.5 hours per day Agreement: Yes Rehab Potential: Good Time/GCodes Start Time: 09:00 Stop Time: 09:25 Total Time Billed (hr/min): 25 Billed Treatment Time 1, ADL x 2 SHAR STEWART OT April 11, 2018 11:58
--- NOTE | 2018-04-11 14:37 | Therapy Team Discharge Summary ---
Therapy Discharge Summary Discharge Recommendations Date of Discharge April 11, 2018 at 13:10 Therapy D/C Recommendations: Home w/ Family Support Occupational Therapy Pt. has been seen by occupational therapy to increase overall strength and independence with daily tasks. Pt. has met all goals. Pt. is able to bathe/ dress with mod I/I. Pt. is discharging home with spouse. No further OT recommended at this time. Decreased Activ Tolerance PT Halfway Goals Account Services Representative Goals PT Halfway Goals Time Frame: April 24, 2018 Transfers (B,C,W/C) (FIM): 6 Roll Left to Right (QC): 6 Sit to Lying (QC): 6 Lying-Sitting on Side/Bed(QC): 6 Sit to Stand (QC): 6 Chair/Izd-vy-Jkvqi Xfer(QC): 6 Car Transfer (QC): 6 Gait (FIM): 5 Distance: 150' Walk 10 feet (QC): 4 Walk 10ft-Uneven Surface(QC): 4 Walk 50ft with 2 Turns (QC): 4 Walk 150 ft (QC): 4 Gait Level of Assist: 5 Gait Assistive Device: FWW Stairs (FIM): 2 # of Steps: 4 1 Step (curb) (QC): 4 4 Steps (QC): 4 Stairs Level Of Assist: 4 OT Account Services Representative Goals Halfway Goals Time Frame: April 17, 2018 Eating (FIM): 6 (met) Eating (QC): 6 (met) Oral Hygiene (QC): 6 (met) Grooming(FIM): 6 (met) Bathing(FIM): 5 (met) Shower/Bathe Self (QC): 5 (met) Upper Body Dressing(FIM): 6 (met) Upper Body Dressing (QC): 6 (met) Lower Body Dressing(FIM): 6 (met) Lower Body Dressing (QC): 6 (met) On/Off Footwear (QC): 6 (met) Toileting(FIM): 6 (met) Toileting Hygiene (QC): 6 (met) Transfers (B,C,W/C) (FIM): 6 (met) Toilet/Commode Transfer(FIM): 6 (met) Toilet/Commode Transfer (QC): 6 (met) Shower Transfer(FIM): 5 (met) Additional Goals: 1-Demonstrate ADL Tasks, 2-Verbalize Understanding, 3- ImproveStrength/[place] 1=Demonstrate adherence to instructed precautions during ADL tasks. 2=Patient will verbalize/demonstrate understanding of assistive devices/ modifications for ADL. 3=Patient will improve strength/tolerance for activity to enable patient to perform ADL's. SHAR STEWART OT April 11, 2018 14:37
--- NOTE | 2018-05-01 04:32 | DISCHARGE SUMMARY ---
DATE OF SERVICE: 04/11/2018 HISTORY OF PRESENT ILLNESS: The patient is a 68-year-old female who presented to [facility] and was transferred from [facility] on 03/17/2018 due to atrial fibrillation with rapid ventricular response. The patient went on to develop cardiogenic shock, refractory to vasopressors and had intraaortic balloon pump placement by Dr. Ramesh, cardiology. The patient was subsequently transferred the next day to [facility] for ongoing care at that facility. The patient was treated for the cardiogenic shock, acute respiratory failure with hypoxia, acute systolic heart failure, acute kidney injury, hyponatremia, cardiomyopathy and paroxysmal atrial fibrillation as well as junctional bradycardia. The patient had a pacemaker and defibrillator placed and was medically stabilized. Medications were adjusted and the patient was referred to inpatient rehabilitation unit at [facility] for ongoing care. She lives in [place], [place] with her spouse. Her PCP does not attend at this facility. She had been independent prior to this by considering having a left total knee replacement. PAST MEDICAL HISTORY: Hypertension, type 2 diabetes mellitus, hyperlipidemia, morbid obesity with BMI of 45, osteoarthritis. She has had thyroid surgery and left shoulder surgery. She has a history of tobaccoism. MEDICAL COURSE: The patient was followed by Dr. Max, Cardiology and Dr. Padilla. While on rehab unit, medications were adjusted. She was afebrile during her stay. Her pulse on 04/11/2018 was 62, respirations 19, blood pressure 109/67, O2 sat 90% on room air. She continued on her amiodarone, metoprolol, digoxin, Bumex. Her CBC on 04/04/2018 showed H and H 7.2/36, platelet count 144K. Chemistry on 04/11/2018 showed elevated serum potassium of 5.6. She was on a potassium-sparing diuretic and this was adjusted. She may have followup labs with her PCP. Glucometer readings from 04/09/2018 to 04/11/2018 varied between 63 and 150. She will have followup Accu-Cheks at home and further adjustments of her insulin and metformin as needed as well as Januvia. The patient was seen by Dr. Kincaid, event specialist food demonstrator. Diagnosis was erythema intertrigo with ulceration full-thickness. Fungal powder was provided. REHABILITATION COURSE: She was assessed by speech therapy upon admission to rehab unit, found to be cognitively intact. They signed off. PT notes prior to her acute hospital stay, she was living at home with her spouse and independent with all mobility. Upon admission to rehab, she was min assist with transfers, could ambulate short distances with min assist and gait aid. Upon discharge, she is modified independent with gait and transfers, able to go up household distance stairs without assistance. OT notes the patient upon admission was mod assist for lower body dressing, min assist for transfers, mod I for eating. Upon discharge, the patient has met all goals and is able to bathe, dress with modified independence. She will have assistance at home with spouse as needed.. DISCHARGE INSTRUCTIONS: Continue current diet and home Accu-Cheks. She will follow up with her PCP and cardiology. Her potassium supplement was discontinued and she will have a followup chem B through home health with report to cardiology or her PCP. DISCHARGE MEDICATIONS: Amiodarone 200 mg p.o. daily, Eliquis 5 mg p.o. b.i.d., ASA 81 mg p.o. daily. Bumex 2 mg p.o. daily, digoxin 62.5 mcg p.o. daily, metoprolol 25 mg p.o. daily, miconazole topically b.i.d., KCl 20 mEq p.o. daily, spironolactone 25 mg p.o. daily, Tylenol Arthritis 650 mg p.o. q.6 hours p.r.n. mild pain, glimepiride 2 mg p.o. b.i.d., Levemir FlexPen 16 units subQ b.i.d., levothyroxine 120 mcg p.o. daily, lisinopril 10 mg p.o. daily, metformin 1000 mg p.o. b.i.d., paroxetine 20 mg p.o. daily, simvastatin 40 mg p.o. each day at bedtime, Januvia 100 mg p.o. daily. DISCHARGE DIAGNOSES: 1. Rehabilitation, general debilitation secondary to paroxysmal atrial fibrillation. 2. Cardiogenic shock. 3. Acute respiratory failure/hypoxia. 4. Acute systolic congestive heart failure. 5. Acute kidney injury. 6. Nonischemic cardiomyopathy. 7. Hypertension with acute systolic congestive heart failure. 8. Diabetes type 2. 9. Long-term insulin use. 10. Hyperlipidemia. 11. Oral thrush, treated. 12. Morbid obesity 40.2. 13. Hypothyroidism, on replacement. 14. Status post defibrillator. 15. Erythema intertrigo with ulceration full thickness right lower abdominal wall, improved. CONDITION AT DISCHARGE: Improved and stable. PROGNOSIS: Rehab prognosis appears good for continued improvement at home with home health care and return to independent living with spouse. Job ID: [id number] DocumentID: [id number] Dictated Date: 04/30/2018 16:17:15 [employer] Vending Mechanic Date: 05/01/2018 04:30:47 Dictated By: DOUG MAX MD [facility]
== END 2018-04-11 13:10 | disposition home health service (06) | DRG 309 ==
LOC: EDPENDDISTM 04-11 15:00 → EDPENDDISDT 04-11 15:00
PROVIDERS: ADMIT Physical Medicine & Rehabilitation; ATTEND Physical Medicine & Rehabilitation
DX: I48.0 Paroxysmal atrial fibrillation (principal); I42.9 Cardiomyopathy, unspecified; I11.0 Hypertensive heart disease with heart failure; I50.22 Chronic systolic (congestive) heart failure; B37.0 Candidal stomatitis; Z68.41 Body mass index [BMI] 40.0-44.9, adult; E66.01 Morbid (severe) obesity due to excess calories; E11.59 Type 2 diabetes mellitus with other circulatory complications; I25.10 Atherosclerotic heart disease of native coronary artery without angina pectoris; E78.00 Pure hypercholesterolemia, unspecified; E03.9 Hypothyroidism, unspecified; L30.4 Erythema intertrigo; Z95.810 Presence of automatic (implantable) cardiac defibrillator; Z79.4 Long term (current) use of insulin; Z87.891 Personal history of nicotine dependence
CPT/HCPCS: 36415; 80048; 80053; 82962; 83735; 85025; 93005

== ENCOUNTER → 2018-04-16 | Outpatient (CLI) | payer BC, MEDICARE ==
[~2018-04-16] MED LIST changes: +AMIO200T2 PO; +APIX5TAB PO; +ASPI-983 PO; +BUME1TAB4 PO; +DIGO-20 PO; +METO-387 PO; +MICO90PO TOP; +POTA20TA8 PO; +SPIR25TA3 PO
[2018-04-16 10:16] LABS: BASOPHILS # (AUTO) 0.1 10^3/uL (0.0-0.1); BASOPHILS % (AUTO) 1 % (0-10); EOSINOPHILS # (AUTO) 0.2 10^3/uL (0.0-0.3); EOSINOPHILS % (AUTO) 3 % (0-10); HEMATOCRIT 39 % (35-52); HEMOGLOBIN 12.6 G/DL (11.5-16.0); LYMPHOCYTES # (AUTO) 0.9 X 10^3 (1.0-4.0); LYMPHOCYTES % (AUTO) 14 % (12-44); MEAN CORPUSCULAR HEMOGLOBIN 28 PG (25-34); MEAN CORPUSCULAR HGB CONC 32 G/DL (32-36); MEAN CORPUSCULAR VOLUME 88 FL (80-99); MEAN PLATELET VOLUME 11.5 FL (7.4-10.4); MONOCYTES # (AUTO) 0.7 X 10^3 (0.0-1.0); MONOCYTES % (AUTO) 11 % (0-12); NEUTROPHILS # (AUTO) 4.6 X 10^3 (1.8-7.8); NEUTROPHILS % (AUTO) 71 % (42-75); PLATELET COUNT 193 10^3/uL (130-400); RED BLOOD COUNT 4.46 10^6/uL (4.35-5.85); RED CELL DISTRIBUTION WIDTH 19.4 % (10.0-14.5); WHITE BLOOD COUNT 6.4 10^3/uL (4.3-11.0)
[2018-04-16 10:40] LABS: CREATININE SERUM 3.17 MG/DL (0.60-1.30); MAGNESIUM 1.6 MG/DL (1.8-2.4); POTASSIUM 5.7 MMOL/L (3.6-5.0)
[2018-04-16 10:49] LABS: DIGOXIN 0.61 NG/ML (0.80-2.00)
== END ==
LOC: HH 04-15 08:00
PROVIDERS: ATTEND Family Medicine
DX: I50.9 Heart failure, unspecified (principal); Z79.899 Other long term (current) drug therapy
CPT/HCPCS: 80048; 80162; 83735; 85025

== ENCOUNTER → 2018-04-17 | Outpatient (CLI) | payer BC | LOC: HH 08:00 | PROVIDERS: ATTEND Family Medicine | DX: E87.5 Hyperkalemia (principal) ==

== ENCOUNTER 2018-04-19 22:59 | Emergency (ER) | payer BC ==
[~2018-04-19] VITALS: Ht 152.4 cm; Wt 93.3 kg
--- NOTE | 2018-04-19 23:21 | ED General ---
General Chief Complaint: Glucose Problems Stated Complaint: SUGAR IS LOW Source of Information: Patient Exam Limitations: No Limitations History of Present Illness Date Seen by Provider: April 19, 2018 Time Seen by Provider: 23:11 Initial Comments The patient presents to ER by private conveyance with her and a chief complaint that she has been having problems with her blood sugars being low all day for the last couple days. Today she has eaten several sugary things, ice cream, orange juice, soda etc. trying to get her blood sugar above 60 and will only go up a few points each time. Historically she's been on Januvia, glimepiride, metformin and insulin but a few days ago when she was having low blood sugars they took her off the insulin. Last month she was in the hospital for Afib and transferred up to with some heart failure. They put a AICD pacemaker in her. She is known to Dr. Ramesh. She's not having any pain but she is having some nausea and she's vomited once or twice today. She's been eating despite the nausea. She says she has some troubles with urine and some soft loose stools but not diarrhea. She also has a nagging cough but no shortness of breath. No pain anywhere. No headache, runny nose, ear pain, rash, boils etc. Allergies and Home Medications Allergies Coded Allergies: Latex (Verified Allergy, Intermediate, HIVES, 04/13/09) Penicillins (Verified Allergy, Mild, "I GO TO SLEEP", 04/13/09) Home Medications Acetaminophen 650 Mg Tablet.er, 650 MG PO Q6H PRN for PAIN-MILD, (Reported) Amiodarone HCl 200 Mg Tablet, 200 MG PO DAILY Prescribed by: DOUG MAX on 04/11/18921 Apixaban 5 Mg Tablet, 5 MG PO BID Prescribed by: DOUG MAX on 04/11/18921 Aspirin 81 Mg Tablet.dr, 81 MG PO DAILY Prescribed by: DOUG MAX on 04/11/18921 Bumetanide 1 Mg Tablet, 2 MG PO DAILY Prescribed by: DOUG MAX on 04/11/18921 Digoxin 125 Mcg Tablet, 62.5 MCG PO DAILY Prescribed by: DOUG MAX on 04/11/18921 Glimepiride 2 Mg Tablet, 2 MG PO BID, (Reported) Insulin Detemir 100 Unit/1 Ml Insuln.pen, 16 UNITS SC BID, (Reported) Levothyroxine Sodium 125 Mcg Tablet, 125 MCG PO DAILY, (Reported) Lisinopril 10 Mg Tablet, 10 MG PO DAILY, (Reported) Metformin HCl 1,000 Mg Tablet, 1,000 MG PO BID WITH MEALS, (Reported) Metoprolol Succinate 25 Mg Tab.er.24h, 25 MG PO DAILY Prescribed by: DOUG MAX on 04/11/18921 Miconazole Nitrate 90 Gm Powder, 0 GM TOP BID Prescribed by: DOUG MAX on 04/11/18921 Paroxetine HCl 40 Mg Tablet, 40 MG PO DAILY, (Reported) Potassium Chloride 20 Meq Tab.er.prt, 20 MEQ PO DAILY@0700 Prescribed by: DOUG MAX on 04/11/18921 Simvastatin 40 Mg Tablet, 40 MG PO HS, (Reported) Sitagliptin Phosphate 100 Mg Tablet, 100 MG PO DAILY, (Reported) Spironolactone 25 Mg Tablet, 25 MG PO DAILY Prescribed by: DOUG MAX on 04/11/18921 Patient Home Medication List Home Medication List Reviewed: Yes Review of Systems Constitutional: chills; No diaphoresis, No malaise EENTM: No ear discharge, No hearing loss, No ear pain Respiratory: cough; No phlegm; short of breath; No wheezing Cardiovascular: No chest pain, No edema; Hx of Intervention; No palpitations Gastrointestinal: No abdominal pain, No constipation, No diarrhea Genitourinary: decreased output; No discharge, No dysuria : No Musculoskeletal: No back pain, No joint pain Skin: No pruritus, No rash Past Ecopnxk-Mstzyw-Hgthpy Hx Patient Social History Alcohol Use: Denies Use Recreational Drug Use: No Type Used: Cigarettes Recent Foreign Travel: No Contact w/Someone Who Travel: No Recent Hopitalizations: Yes Immunizations Up To Date PED Vaccines UTD: Yes Seasonal Allergies Seasonal Allergies: No Past Medical History Surgeries: Yes (LUMPS FOR HER HEAD REMOVED, CARPAL TUNNEL) Respiratory: Yes (requires 02 at HS-post vent) Pneumonia Cardiac: Yes (pacemaker and defib cpnbze-zgkpdfmjxjl-wqzhgddyjif shock) Atrial Fibrillation, Chronic Edema/Swelling, Coronary Artery Disease, High Cholesterol, Hypertension Neurological: No Reproductive Disorders: Yes Sexually Transmitted Disease: No Genitourinary: Yes (acute kidney injury) Gastrointestinal: Yes (liver shock;acute) Liver Disease/Jaundice Musculoskeletal: Yes (BURSITIS LEFT FOOT;OSTEOARTHRITIS ) Endocrine: Yes HEENT: No Cancer: No Psychosocial: Yes Depression Integumentary: No Blood Disorders: No Family Medical History Patient reports no known family medical history. Physical Exam Vital Signs Vital Signs - First Documented 04/19/18 23:05 Temp 96.5 Pulse 106 Resp 18 B/P (MAP) 130/72 (91) Pulse Ox 92 O2 Delivery Room Air Capillary Refill : General Appearance: No Apparent Distress, Obese Eyes: Bilateral Eye Normal Inspection, Bilateral Eye PERRL, Bilateral Eye EOMI HEENT: PERRL/EOMI, TMs Normal, Normal ENT Inspection, Pharynx Normal Neck: Full Range of Motion, Normal Inspection, Non Tender, Supple Respiratory: Chest Non Tender, Lungs Clear, Normal Breath Sounds, No Accessory Muscle Use, No Respiratory Distress Cardiovascular: Regular Rate, Rhythm, No Edema, No Gallop Gastrointestinal: Normal Bowel Sounds, No Organomegaly, Non Tender, Soft Extremity: Normal Capillary Refill, Non Tender, No Calf Tenderness, No Pedal Edema Neurologic/Psychiatric: Alert, Oriented x3, No Motor/Sensory Deficits Skin: Other (well-healing surgical wound over the left chest where the pacemaker AICD was placed without area of fluctuance, discharge, erythema or tenderness.) Procedures/Interventions Date of ETT Placement: Mar 18, 2018 Time of ETT Placement: 1318 Progress/Results/Core Measures Suspected Sepsis SIRS Temperature: Pulse: Respiratory Rate: Laboratory Tests 04/19/18 23:25: White Blood Count 7.4 Blood Pressure / Mean: Laboratory Tests 04/19/18 23:25: Creatinine 5.13#H, Platelet Count 151, Total Bilirubin 0.6 Results/Orders Lab Results Laboratory Tests Test 04/19/18 23:25 04/19/18 23:28 04/20/18 00:31 Range/Units White Blood Count 7.4 4.3-11.0 10^3/uL Red Blood Count 4.45 4.35-5.85 10^6/uL Hemoglobin 12.8 11.5-16.0 G/DL Hematocrit 38 35-52 % Mean Corpuscular Volume 86 80-99 FL Mean Corpuscular Hemoglobin 29 25-34 PG Mean Corpuscular Hemoglobin Concent 34 32-36 G/DL Red Cell Distribution Width 19.4 H 10.0-14.5 % Platelet Count 151 130-400 10^3/uL Mean Platelet Volume 11.1 H 7.4-10.4 FL Neutrophils (%) (Auto) 72 42-75 % Lymphocytes (%) (Auto) 16 12-44 % Monocytes (%) (Auto) 11 0-12 % Eosinophils (%) (Auto) 1 0-10 % Basophils (%) (Auto) 0 0-10 % Neutrophils # (Auto) 5.3 1.8-7.8 X 10^3 Lymphocytes # (Auto) 1.2 1.0-4.0 X 10^3 Monocytes # (Auto) 0.8 0.0-1.0 X 10^3 Eosinophils # (Auto) 0.1 0.0-0.3 10^3/uL Basophils # (Auto) 0.0 0.0-0.1 10^3/uL Sodium Level 128 L 135-145 MMOL/L Potassium Level 6.4 H 3.6-5.0 MMOL/L Chloride Level 89 L 98-107 MMOL/L Carbon Dioxide Level 20 L 21-32 MMOL/L Anion Gap 19 H 5-14 MMOL/L Blood Urea Nitrogen 83 H 7-18 MG/DL Creatinine 5.13 #H 0.60-1.30 MG/DL Estimat Glomerular Filtration Rate 8 BUN/Creatinine Ratio 16 Glucose Level 45 *L 70-105 MG/DL Calcium Level 10.2 H 8.5-10.1 MG/DL Magnesium Level 1.7 L 1.8-2.4 MG/DL Total Bilirubin 0.6 0.1-1.0 MG/DL Aspartate Amino Transf (AST/SGOT) 42 H 5-34 U/L Alanine Aminotransferase (ALT/SGPT) 73 H 0-55 U/L Alkaline Phosphatase 46 40-136 U/L C-Reactive Protein High Sensitivity 0.36 0.00-0.50 MG/DL Total Protein 7.2 6.4-8.2 GM/DL Albumin 4.2 3.2-4.5 GM/DL Glucometer 54 *L 69 L 70-110 MG/DL My Orders Orders - MESSI VILLALOBOS Cbc With Automated Diff (04/19/18 23:18) Comprehensive Metabolic Panel (04/19/18 23:18) Hs C Reactive Protein (04/19/18 23:18) Magnesium (04/19/18 23:18) Ua Culture If Indicated (04/19/18 23:18) Chest Pa/Lat (2 View) (04/19/18 23:18) Saline Lock/Iv-Start (04/19/18 23:18) Ns Iv 1000 Ml (Sodium Chloride 0.9%) (04/19/18 23:18) Ondansetron Injection (Zofran Injectio (04/19/18 23:30) Continuous Ekg Monitoring (04/20/18 00:17) Ekg Tracing (04/20/18 00:17) D5 Ns 1000 Ml Iv Solution (Dextrose 5%/0 (04/20/18 00:30) Accucheck Stat ONCE (04/20/18 00:22) D5 Ns 1000 Ml Iv Solution (Dextrose 5%/0 (04/20/18 01:39) Medications Given in ED Current Medications Medications Dose Ordered Sig/Marielena Route Start Time Stop Time Status Last Admin Dose Admin Ondansetron HCl 4 mg ONCE ONCE IVP 04/19/18 23:30 04/19/18 23:31 DC 04/19/18 23:28 4 MG Vital Signs/I&O 04/19/18 04/20/18 23:05 01:36 Temp 96.5 97.1 Pulse 106 99 Resp 18 14 B/P (MAP) 130/72 (91) 125/76 (91) Pulse Ox 92 98 O2 Delivery Room Air Room Air Capillary Refill : Progress Note #1: Time: 00:03 Progress Note She is hyperglycemic but she is alert and oriented so we will allow her to eat some different high-protein foods such as an ensure shake etc. We'll look for reasons for her low blood sugar such as infection. Her labs indicate her creatinine is steadily getting worse and she is acute kidney failure tonight with a GFR of 8 mL per hour. Between the Bumex, glimepiride, heart failure etc. her kidneys not tolerated this well. We will switch her IV fluids over to D5 water at 100 cc an hour. She is probably still covered by Eliquis and they can rearrange her anticoagulation tomorrow. Labs on file from [facility] demonstrate that on 04/16 she had a creatinine of 3.1 with a potassium of 5.7 and BUNs 69. This morning her creatinine was 4.35 with a potassium of 6.2 and BUN of 77. Magnesium is 1.7. Severe cardiomyopathy, chronic systolic congestive heart failure, Atrial fibrillation, Status post ICD, On Aspirin, lisinopril, Aldactone, Bumex. Amiodarone, Eliquis. Echocardiogram by Dr. Ramesh March 18, 2018: Left ventricle: Wall thickness is normal. Cavity size is normal. Systolic function is reduced. It EF of 10-15%. There were no regional wall motion abnormalities noted. Right ventricle cavity size is increased and wall thickness is normal. Systolic function is reduced. Systolic pressure is mildly increased with estimated peak pressure 32 mmHg. Left atrium is dilated diameter 4.5 cm. Right atrium is dilated. Mitral valve is with mild regurgitation. Tricuspid valve with mild to moderate regurgitation. Cardiac catheterization 03/18/18; Dr Ramesh: Left main patent LAD patent Left circumflex artery patent RCA nondominant, small. No disease. Left heart catheterization aortic pressure 72/46 mmHg. Left ventricular end- diastolic pressure 22 mmHg, left ventricle 71 over 15 mmHg, no gradient across the aortic valve. Left ventriculogram not done. IABP placed. Cardiogenic shock refractory to vasopressor therapy. Patent epicardial coronary arteries. Progress Note #2: Time: 01:08 Progress Note The patient did produce a urine specimen however it was inadvertently discarded prior to obtaining sample for lab. ECG Initial ECG Impression Date: April 20, 2018 Initial ECG Impression Time: 00:23 Initial ECG Rate: 101 Initial ECG Rhythm: S.Tach (atrial paced tachycardia) Initial ECG Intervals: Normal Initial ECG Impression: Normal, Nonspecific Changes Initial ECG Comparisson: Unchanged Comment Respiratory artifact. No ST-T wave elevation or depression. Diagnostic Imaging Diagonstic Imaging: Xray Plain Films/CT/US/NM/MRI: chest Comments No acute cardiopulmonary process noted. Reviewed: Reviewed by Me Departure Impression Primary Impression: Hypoglycemia associated with diabetes Additional Impression: Acute kidney failure, unspecified Qualified Codes: N17.9 - Acute kidney failure, unspecified Disposition: 02 XFER SHT-TRM HOSP Condition: Stable Transfer Time Spoke to Accepting Phy: 00:30 Transfer Progress Notes Niall; Dr Valdez, IM. accepted the pt. Transfer Time: 01:45 Transfer Facility: [place], [place]. Method of Transfer: EMS ([facility]) Departure-Patient Inst. Referrals: DEMAR HILLS (PCP/Family) Primary Care Physician Copy Copies To 1: Jonny RAMESH MD, TITUS J April 19, 2018 23:21
[2018-04-19] MEDS: ONDANSETRON 4 MG/2 ML (SDV) Z0FRAN IVP ONE (23:28)
[2018-04-19] MEDS: NS IV 1000 ML 1,000 ML IV SCH (23:28)
[2018-04-19 23:32] LABS: BASOPHILS % (AUTO) 0 % (0-10); EOSINOPHILS # (AUTO) 0.1 10^3/uL (0.0-0.3); EOSINOPHILS % (AUTO) 1 % (0-10); HEMATOCRIT 38 % (35-52); HEMOGLOBIN 12.8 G/DL (11.5-16.0); LYMPHOCYTES # (AUTO) 1.2 X 10^3 (1.0-4.0); LYMPHOCYTES % (AUTO) 16 % (12-44); MEAN CORPUSCULAR HEMOGLOBIN 29 PG (25-34); MEAN CORPUSCULAR HGB CONC 34 G/DL (32-36); MEAN CORPUSCULAR VOLUME 86 FL (80-99); MEAN PLATELET VOLUME 11.1 FL (7.4-10.4); MONOCYTES # (AUTO) 0.8 X 10^3 (0.0-1.0); MONOCYTES % (AUTO) 11 % (0-12); NEUTROPHILS # (AUTO) 5.3 X 10^3 (1.8-7.8); NEUTROPHILS % (AUTO) 72 % (42-75); PLATELET COUNT 151 10^3/uL (130-400); RED BLOOD COUNT 4.45 10^6/uL (4.35-5.85); RED CELL DISTRIBUTION WIDTH 19.4 % (10.0-14.5); WHITE BLOOD COUNT 7.4 10^3/uL (4.3-11.0)
[2018-04-19 23:52] LABS: ALBUMIN 4.2 GM/DL (3.2-4.5); BILIRUBIN,TOTAL 0.6 MG/DL (0.1-1.0); CALCIUM 10.2 MG/DL (8.5-10.1); CREATININE SERUM 5.13 MG/DL (0.60-1.30); MAGNESIUM 1.7 MG/DL (1.8-2.4); POTASSIUM 6.4 MMOL/L (3.6-5.0); TOTAL PROTEIN 7.2 GM/DL (6.4-8.2)
[2018-04-20] MEDS: D5 NS 1000 ML IV SOLUTION 1,000 ML IV SCH (00:31)
[2018-04-20 01:36] VITALS: BP 125/76
[2018-04-20] MEDS: D5 NS 1000 ML IV SOLUTION 1,000 ML IV ONE (01:42)
--- NOTE | 2018-04-20 06:40 | Diagnostic Imaging Report ---
EXAM: PA and lateral chest at 12:07 INDICATION: Weakness FINDINGS: The heart is borderline enlarged but the heart does seem less prominent than noted on the prior exam of 03/18/2018. The lungs are clear. There is no sign of failure, pneumonia or of pleural effusion. The mediastinum is not widened. The osseous structures are intact. The total shoulder prosthesis on the left seen previously is again evident and no different. In the interval since the prior exam, the patient has been extubated. Also, since the previous study, a left-sided defibrillator device has been inserted. IMPRESSION: 1. There is borderline cardiomegaly but there is no evidence for an acute cardiopulmonary abnormality. 2. There has been interval insertion of a left-sided defibrillator device. Dictated by: Dictated on workstation # [id number]
== END 2018-04-20 01:38 | disposition short-term general hospital (02) ==
LOC: EDUNIT# 22:59 → ER 23:00
DX: E11.649 Type 2 diabetes mellitus with hypoglycemia without coma (principal); N17.9 Acute kidney failure, unspecified; I48.91 Unspecified atrial fibrillation; R60.0 Localized edema; I25.10 Atherosclerotic heart disease of native coronary artery without angina pectoris; E78.00 Pure hypercholesterolemia, unspecified; I10 Essential (primary) hypertension; F32.9 Major depressive disorder, single episode, unspecified; Z87.19 Personal history of other diseases of the digestive system; Z87.01 Personal history of pneumonia (recurrent); Z79.82 Long term (current) use of aspirin; Z79.4 Long term (current) use of insulin; Z95.810 Presence of automatic (implantable) cardiac defibrillator; Z91.040 Latex allergy status; Z88.0 Allergy status to penicillin
CPT/HCPCS: 36415; 71046; 80053; 82962; 83735; 85025; 86141; 93005; 96361; 96374

== ENCOUNTER → 2018-04-19 | Outpatient (CLI) | payer BC ==
[2018-04-19 10:03] LABS: CALCIUM 10.1 MG/DL (8.5-10.1); CREATININE SERUM 4.35 MG/DL (0.60-1.30); POTASSIUM 6.2 MMOL/L (3.6-5.0)
== END ==
LOC: HH 10:46
PROVIDERS: ATTEND Family Medicine
DX: E87.5 Hyperkalemia (principal)
CPT/HCPCS: 80048

== ENCOUNTER → 2018-06-10 | Outpatient (CLI) | payer BC ==
[~2018-06-10] MED LIST changes: -AMIO200T2 PO; +AMIO200T4 PO; -SPIR25TA3 PO; +SPIR25TA5 PO
== END ==
LOC: CARD 12:28
PROVIDERS: ATTEND Internal Medicine Interventional Cardiology
DX: I48.91 Unspecified atrial fibrillation (principal); I50.9 Heart failure, unspecified; I42.9 Cardiomyopathy, unspecified
CPT/HCPCS: 93306

== ENCOUNTER 2018-07-12 17:31 | Inpatient (IN) | payer BC, MEDICARE ==
[~2018-07-12] VITALS: Ht 154.9 cm; Wt 93.0 kg
[2018-07-12] VITALS (8 sets, daily range): BP systolic 96–121; BP diastolic 61–96
[~2018-07-12 17:31] MED LIST changes: +METF-399 PO; -METF10002 PO
[2018-07-12] MEDS ORDERED: DILTIAZEM 25 MG/5 ML INJ (CARDIZEM) VIAL ONE (17:40)
[2018-07-12] MEDS ORDERED: DILTIAZEM 25 MG/5 ML INJ (CARDIZEM) VIAL IVP ONE (18:00)
[2018-07-12] MEDS ORDERED: DILTIAZEM INJECTION 125 MG in D5W 100 ML IVPB 100 ML IV SCH (18:00)
[2018-07-12 18:01] LABS: BASOPHILS % (AUTO) 0 % (0-10); EOSINOPHILS # (AUTO) 0.2 10^3/uL (0.0-0.3); EOSINOPHILS % (AUTO) 3 % (0-10); HEMATOCRIT 42 % (35-52); HEMOGLOBIN 13.7 G/DL (11.5-16.0); LYMPHOCYTES # (AUTO) 1.3 X 10^3 (1.0-4.0); LYMPHOCYTES % (AUTO) 21 % (12-44); MEAN CORPUSCULAR HEMOGLOBIN 29 PG (25-34); MEAN CORPUSCULAR HGB CONC 33 G/DL (32-36); MEAN CORPUSCULAR VOLUME 90 FL (80-99); MEAN PLATELET VOLUME 11.1 FL (7.4-10.4); MONOCYTES # (AUTO) 0.5 X 10^3 (0.0-1.0); MONOCYTES % (AUTO) 8 % (0-12); NEUTROPHILS # (AUTO) 4.4 X 10^3 (1.8-7.8); NEUTROPHILS % (AUTO) 69 % (42-75); PLATELET COUNT 156 10^3/uL (130-400); RED BLOOD COUNT 4.69 10^6/uL (4.35-5.85); RED CELL DISTRIBUTION WIDTH 14.5 % (10.0-14.5); WHITE BLOOD COUNT 6.4 10^3/uL (4.3-11.0)
[2018-07-12 18:15] LABS: ALANINE AMINOTRANSFERASE 13 U/L (0-55); ALBUMIN 4.1 GM/DL (3.2-4.5); ALKALINE PHOSPHATASE 39 U/L (40-136); BILIRUBIN,TOTAL 0.5 MG/DL (0.1-1.0); BUN/CREATININE RATIO 35; CALCIUM 9.6 MG/DL (8.5-10.1); CARBON DIOXIDE 26 MMOL/L (21-32); CHLORIDE 102 MMOL/L (98-107); CREATININE SERUM 0.99 MG/DL (0.60-1.30); GFR ESTIMATED 56; GLUCOSE 185 MG/DL (70-105); POTASSIUM 4.1 MMOL/L (3.6-5.0); SODIUM 138 MMOL/L (135-145); TOTAL PROTEIN 6.6 GM/DL (6.4-8.2)
[2018-07-12] MEDS ORDERED: ENOXAPARIN 100 MG/1 ML (LOVENOX) SYR SC SCH (18:30)
--- NOTE | 2018-07-12 18:32 | ED Cardiac General ---
History of Present Illness General Chief Complaint: Cardiac/General Problems Stated Complaint: DEFIBRILLATOR WENT OFF Nursing Triage Note: PT REPORTS SHE WAS SHOPPING AND STOPPED TO USE THE RESTROOM AT THE MALL. WHILE SITTING DOWN HER DEFIBULATOR WENT OFF. PT REPORTS IT HAPPENED AROUND 1300. PT REPORTS SHE HAS HX OF AFIB AND WAS IN IT LAST WEEK. PT STATES SHE FELT FINE THIS AM AND HER HR THIS MORNING 67. PT DENIES CP. Source: patient, family Exam Limitations: no limitations History of Present Illness Date Seen by Provider: Jul 12, 2018 Time Seen by Provider: 18:26 Initial Comments This 68-year-old white female presents with acute onset of A. fib with RVR that began this afternoon. Patient has a history of congestive heart failure. She' s had defibrillator pacer implanted. Patient also had a cardiac catheter approximately [address] Underwood which was normal. Patient denies associated chest pain or orthostatic symptoms. She denies associated fever or chill. She has had no cough or shortness of breath. Dr. Ramesh is her health care legal assistant. Allergies and Home Medications Allergies Coded Allergies: latex (Verified Allergy, Intermediate, HIVES, 04/13/09) Penicillins (Verified Allergy, Mild, "I GO TO SLEEP", 04/13/09) Home Medications Acetaminophen 650 Mg Tablet.er, 650 MG PO Q6H PRN for PAIN-MILD, (Reported) Amiodarone HCl 200 Mg Tablet, 200 MG PO DAILY Prescribed by: DOUG MAX on 04/11/18921 Apixaban 5 Mg Tablet, 5 MG PO BID Prescribed by: DOUG MAX on 04/11/18921 Aspirin 81 Mg Tablet.dr, 81 MG PO DAILY Prescribed by: DOUG MAX on 04/11/18921 Bumetanide 1 Mg Tablet, 2 MG PO DAILY Prescribed by: DOUG MAX on 04/11/18921 Digoxin 125 Mcg Tablet, 62.5 MCG PO DAILY Prescribed by: DOUG MAX on 04/11/18921 Glimepiride 2 Mg Tablet, 2 MG PO BID, (Reported) Insulin Detemir 100 Unit/1 Ml Insuln.pen, 16 UNITS SC BID, (Reported) Levothyroxine Sodium 125 Mcg Tablet, 125 MCG PO DAILY, (Reported) Lisinopril 10 Mg Tablet, 10 MG PO DAILY, (Reported) Metformin HCl 1,000 Mg Tablet, 1,000 MG PO BID WITH MEALS, (Reported) Metoprolol Succinate 25 Mg Tab.er.24h, 25 MG PO DAILY Prescribed by: DOUG MAX on 04/11/18921 Miconazole Nitrate 90 Gm Powder, 0 GM TOP BID Prescribed by: DOUG MAX on 04/11/18921 Paroxetine HCl 40 Mg Tablet, 40 MG PO DAILY, (Reported) Potassium Chloride 20 Meq Tab.er.prt, 20 MEQ PO DAILY@0700 Prescribed by: DOUG MAX on 04/11/18921 Simvastatin 40 Mg Tablet, 40 MG PO HS, (Reported) Sitagliptin Phosphate 100 Mg Tablet, 100 MG PO DAILY, (Reported) Spironolactone 25 Mg Tablet, 25 MG PO DAILY Prescribed by: DOUG MAX on 04/11/18921 Patient Home Medication List Home Medication List Reviewed: Yes Review of Systems Constitutional: No chills EENTM: No Double Vision Respiratory: Denies Cough Cardiovascular: Denies Chest Pain; Irregular Heart Rate; Denies Palpitations Gastrointestinal: No Symptoms Reported Genitourinary: No Symptoms Reported Musculoskeletal: no symptoms reported Skin: no symptoms reported Psychiatric/Neurological: No Symptoms Reported Endocrine: No Symptoms Reported Hematologic/Lymphatic: No Symptoms Reported Past Fvejfjx-Qzqhbb-Bffwku Hx Past Med/Social Hx: Reviewed Nursing Past Med/Soc Hx Patient Social History Alcohol Use: Rarely Uses Recreational Drug Use: No Smoking Status: Former Smoker Type Used: Cigarettes Former Smoker, Quit: Jul 12, 2004 Recent Foreign Travel: No Contact w/Someone Who Travel: No Recent Infectious Disease Expo: No Recent Hopitalizations: Yes (ppm placement) Physical Abuse: No Sexual Abuse: No Mistreated: No Fear: No Immunizations Up To Date Tetanus Booster (TDap): Unknown PED Vaccines UTD: Yes Seasonal Allergies Seasonal Allergies: No Past Medical History Surgeries: Yes (DENTAL, CARPAL TUNNEL, L SHOUDER,L KNEE) Defibrillator, Hysterectomy, Oophorectomy, Tonsillectomy Respiratory: No Pneumonia Cardiac: Yes (pacemaker and defib hzfwmw-pclntubmiuz-buzsqzyapqq shock) Atrial Fibrillation, Chronic Edema/Swelling, Coronary Artery Disease, High Cholesterol, Hypertension Neurological: No Reproductive Disorders: Yes Sexually Transmitted Disease: No Genitourinary: Yes (acute kidney injury) Gastrointestinal: Yes (liver shock;acute) Liver Disease/Jaundice Musculoskeletal: Yes (BURSITIS LEFT FOOT;OSTEOARTHRITIS ) Endocrine: Yes Diabetes, Insulin dep, Hypothyroidsim HEENT: No Cancer: No Psychosocial: Yes Depression Nursing Suicide Risk Score: 0 Integumentary: No Blood Disorders: No Family Medical History Patient reports no known family medical history. Physical Exam Vital Signs Vital Signs - First Documented 07/12/18 17:52 Temp 96.6 Pulse 125 Resp 16 B/P (MAP) 133/94 (107) Pulse Ox 94 O2 Delivery Room Air Capillary Refill : Less Than 3 Seconds Height, Weight, BMI Height: 5'1.00" Weight: 196lbs. 12.8oz. 88.985227ut; 49.8 BMI Method:Stated General Appearance: No Apparent Distress, WD/WN HEENT: Normal ENT Inspection Neck: Normal Inspection Respiratory: Lungs Clear Cardiovascular: Irregularly Irregular, Tachycardia Gastrointestinal: Normal Bowel Sounds Extremity: Normal Capillary Refill, Normal Inspection, Normal Range of Motion Neurologic/Psychiatric: Alert, Oriented x3, No Motor/Sensory Deficits Skin: Normal Color, Warm/Dry Procedures/Interventions Date of ETT Placement: Mar 18, 2018 Time of ETT Placement: 1318 Progress/Results/Core Measures Results/Orders Lab Results Laboratory Tests Test 07/12/18 17:46 Range/Units White Blood Count 6.4 4.3-11.0 10^3/uL Red Blood Count 4.69 4.35-5.85 10^6/uL Hemoglobin 13.7 11.5-16.0 G/DL Hematocrit 42 35-52 % Mean Corpuscular Volume 90 80-99 FL Mean Corpuscular Hemoglobin 29 25-34 PG Mean Corpuscular Hemoglobin Concent 33 32-36 G/DL Red Cell Distribution Width 14.5 10.0-14.5 % Platelet Count 156 130-400 10^3/uL Mean Platelet Volume 11.1 H 7.4-10.4 FL Neutrophils (%) (Auto) 69 42-75 % Lymphocytes (%) (Auto) 21 12-44 % Monocytes (%) (Auto) 8 0-12 % Eosinophils (%) (Auto) 3 0-10 % Basophils (%) (Auto) 0 0-10 % Neutrophils # (Auto) 4.4 1.8-7.8 X 10^3 Lymphocytes # (Auto) 1.3 1.0-4.0 X 10^3 Monocytes # (Auto) 0.5 0.0-1.0 X 10^3 Eosinophils # (Auto) 0.2 0.0-0.3 10^3/uL Basophils # (Auto) 0.0 0.0-0.1 10^3/uL Sodium Level 138 135-145 MMOL/L Potassium Level 4.1 3.6-5.0 MMOL/L Chloride Level 102 98-107 MMOL/L Carbon Dioxide Level 26 21-32 MMOL/L Anion Gap 10 5-14 MMOL/L Blood Urea Nitrogen 35 H 7-18 MG/DL Creatinine 0.99 0.60-1.30 MG/DL Estimat Glomerular Filtration Rate 56 BUN/Creatinine Ratio 35 Glucose Level 185 H 70-105 MG/DL Calcium Level 9.6 8.5-10.1 MG/DL Corrected Calcium 9.5 8.5-10.1 MG/DL Total Bilirubin 0.5 0.1-1.0 MG/DL Aspartate Amino Transf (AST/SGOT) 13 5-34 U/L Alanine Aminotransferase (ALT/SGPT) 13 0-55 U/L Alkaline Phosphatase 39 L 40-136 U/L Total Protein 6.6 6.4-8.2 GM/DL Albumin 4.1 3.2-4.5 GM/DL My Orders Orders - SADA DANIELLE MD Diltiazem Injection (Cardizem Injection) (07/12/18 17:40) Diltiazem Injection (Cardizem Injection) (07/12/18 18:00) D5w 100 Ml Ivpb (De... W/Diltiazem Injec (07/12/18 18:00) Cbc With Automated Diff (07/12/18 17:48) Comprehensive Metabolic Panel (07/12/18 17:48) Troponin I (07/12/18 17:48) Chest 1 View, Ap/Pa Only (07/12/18 17:48) Enoxaparin Injection (Lovenox Injection) (07/12/18 18:30) Medications Given in ED Current Medications Medications Dose Ordered Sig/Marielena Route Start Time Stop Time Status Last Admin Dose Admin Diltiazem HCl 10 mg ONCE ONCE IVP 07/12/18 18:00 07/12/18 18:01 DC 07/12/18 18:05 10 MG Vital Signs/I&O 07/12/18 17:52 Temp 96.6 Pulse 125 Resp 16 B/P (MAP) 133/94 (107) Pulse Ox 94 O2 Delivery Room Air Blood Pressure Mean: 107 Progress Progress Note : Time: 18:29 Progress Note Patient received a Cardizem bolus and drip of 10 mg and 10 mg. Patient's ventricular rate slowed to approximately 100. Telephone consultation was undertaken with Dr. Wyatt who is kind enough to admit the patient. Departure Communication (Admissions) Time/Spoke to Admitting Phy: 18:30 Yoselin Clemons. Impression Primary Impression: Atrial fibrillation with RVR Disposition: ADMITTED INPATIENT Condition: Improved Admissions Decision to Admit Reason: Admit from ER (General) Decision to Admit/Date: Jul 12, 2018 Time/Decision to Admit Time: 18:31 Departure-Patient Inst. Referrals: RICARDO FERNANDEZ MD (PCP) Primary Care Physician DEMAR HILLS (Family) Primary Care Physician SADA DANIELLE MD Jul 12, 2018 18:31
--- NOTE | 2018-07-12 18:39 | Diagnostic Imaging Report ---
INDICATION: Defibrillator went off. TECHNIQUE: Single view chest 6:29 PM. CORRELATION STUDY: 04/20/2018 FINDINGS: Left-sided AICD remains in place. The orientation and appearance is generally stable. Heart size is enlarged. Vasculature overall within normal limits. Lung magallon demonstrate no focal infiltrate. IMPRESSION: 1. Left-sided AICD appearing generally stable. Cardiac enlargement without failure otherwise acute findings of the chest. Dictated by: Dictated on workstation # [id number]
[2018-07-12] MEDS ORDERED: NS (IVPB) 250 ML ONE (18:48)
[2018-07-12] MEDS ORDERED: NS (IVPB) 250 ML IV ONE (19:00)
--- OUTSIDE RECORDS SUMMARY | 2018-07-12 19:34 | XMS REPORT | Encounter Summary ---
Author Author [facility] Organization [facility] Address Unknown Phone Unavailable Care Team Providers Care Retouching Operator Name Role Phone Brad Cummings MD PCP Encounter Details Date Type Department Care Team Description 04/18/2018 Ancillary [facility] Cardiology Jovanny Fry MD Cardiac defibrillator in [facility] [place] [address] [place] [address] [phone] Social History Tobacco Use Types Packs/Day Years [...] Treatment Not on fileas of this encounter Results * DEVICE EVALUATION - REMOTE ICD (04/18/2018 11:16 AM) Generator Cloth Finishing Range Back Tender [place] OTHER OUTSIDE LAB Device Type DDD-ICD OTHER OUTSIDE LAB Wireless Generator Yes OTHER OUTSIDE LAB Generator MRI Conditional Yes OTHER OUTSIDE LAB Atrial Lead Cloth Finishing Range Back Tender [place] OTHER OUTSIDE LAB Atrial Lead Model # TENDRIL MRI [id number] 52cm OTHER OUTSIDE LAB Atrial Lead Serial # [id number] OTHER OUTSIDE LAB Atrial Lead Implant Date 03/27/2018 OTHER OUTSIDE LAB Atrial Lead Fixation active fixation OTHER OUTSIDE LAB Atrial Lead Polarity Bipolar OTHER OUTSIDE LAB Atrial Lead Pin Connector IS1 OTHER OUTSIDE LAB Atrial Lead MRI Yes OTHER OUTSIDE LAB Conditional RV Lead Cloth Finishing Range Back Tender [place] OTHER OUTSIDE LAB RV Lead Model # OPTISURE [id number] OTHER OUTSIDE LAB RV Lead Serial # [id number] OTHER OUTSIDE LAB RV Lead Implant Date 03/27/2018 OTHER OUTSIDE LAB RV Lead Fixation active fixation OTHER OUTSIDE LAB RV Lead Coil Single OTHER OUTSIDE LAB RV Lead MRI Conditional Yes OTHER OUTSIDE LAB Generator Model # NADINE GALLEGOS [id number] OTHER OUTSIDE LAB Generator Serial # [id number] OTHER OUTSIDE LAB Generator Implnat Date 03/27/2018 OTHER OUTSIDE LAB Remote Monitor Serial# [id number] OTHER OUTSIDE LAB Accssory Serial Number [id number] OTHER OUTSIDE LAB Device [place] On Demand OTHER OUTSIDE LAB Transmitter Compatible Device Mode DDDR OTHER OUTSIDE LAB Mode Switch Status On OTHER OUTSIDE LAB Lower Rate Limit 60 OTHER OUTSIDE LAB Mode Switch (bpm) 150 OTHER OUTSIDE LAB Upper Rate Limit 130 OTHER OUTSIDE LAB Pace AV Delay 200 OTHER OUTSIDE LAB Sense AV Delay 170 OTHER OUTSIDE LAB VT Monitor 171 OTHER OUTSIDE LAB High A Rate Detect 150 OTHER OUTSIDE LAB FVT Detect Rate Tx ATP/SHOCK OTHER OUTSIDE LAB VF Detect Rate Tx ATP/SHOCK OTHER OUTSIDE LAB VT Detect Rate (bpm) NA OTHER OUTSIDE LAB FVT Detect Rate (bpm) 190 OTHER OUTSIDE LAB VF Detect Rate (bpm) 250 OTHER OUTSIDE LAB High V Rate Detect 171 OTHER OUTSIDE LAB Atrial Lead Diaph. 10 OTHER OUTSIDE LAB Stimulation RV Lead Diaph. 10 OTHER OUTSIDE LAB Stimulation Next Programming Check 4-12weeks post implant OTHER OUTSIDE LAB Due Device Implanted By [facility] OTHER OUTSIDE LAB Pacemaker Dependant No OTHER OUTSIDE LAB Date of Last Programming 04/02/18 OTHER OUTSIDE LAB Date of Last 04/02/18 OTHER OUTSIDE LAB Interrogation HF Patient Yes OTHER OUTSIDE LAB Remote Monitoring? Yes OTHER OUTSIDE LAB Date of Last Remote Check TBA OTHER OUTSIDE LAB Known Diagnosed AFib Yes OTHER OUTSIDE LAB On Anticoagulation Yes OTHER OUTSIDE LAB Narrative Performed At OTHER OUTSIDE LAB Current Montioring Period - 03/27/18 through 06/28/18 Initial Remote - no charge Known AF and anticoagulated Released on 04/28 via Sp[employer] for [facility] Yung to pickler helper remote [06/20/2018 9:42:43 AM - BI MEDINA] Alert driven remote received for AF burden exceeded. AFL/Afib event started 06/19/18 @ 620 pm and lasted until ~215am. Peak A/V 640/157 bpm. High V rates noted with V rate > 110 bpm ~ 30 % of time in AF. [place] 5.6% since 04/02/18. 2 prior events since last remote show short AT. Pt has HX and is anticoagulated. Presenting strip @ 0515 this am was ASVS with NSR part of time and bigeminy for 18 sec. PVC burden listed as 2.3%, but probable undercounted as ASVS. Corvue shows fluid much of month with improvement in last few days. See attached for more information. Per record and Igor, pt follow with Dr Oliver in [place]. Call to pt and she confirms this. Says she was unaware of AF. Call to Dr Oliver's office and spoke with member of device team and provided them with device info needed to transfer pt and remote summary. They agree to transfer today. Routed to Dr Durán on servie. [04/28/2018 8:44:53 PM - ALKA BLAIR] Remote alert of AF. Presenting EGM shows ASVS 75 bpm. Multiple AMS events since 04/19, longest on 04/22 lasting 3 hours - EGM's show AT and some Flutter, none since 04/24/18. [place] now 16%. See attached for details. Remote released to [facility] in [place] per physician request. Routed to [facility] for cosign. [04/19/2018 10:47:30 AM - JAMSHID VAUGHN] EP Nurse Pool was flagged yesterday morning for abnormal AF events. Igor Alert received today for exceeded AT/AF burden as well as high V. Rates during AT/AF events. Presenting EGM shows Aflutter with 2:1 ration with V rates ~100-105 bpm on 04/19/18 at 02:00. Known AF and anticoagulated. 87 new AMS episodes noted since 04/18/18 02:00 remote. Last on 04/19/18. Longest duration listed at ~3hr 53 min. Overall burden of 9.7%. EGMs show AFL with VS rate of 113-128 bpm. Results routed to Dr. Fry for signature and review. [04/18/2018 11:17:26 AM - ALKA BLAIR] MAC NURSE EP Pool notified of abnormal remote for AF events Please see scanned data sheets for further review. Scheduled IGOR transmission received forDual chamber ICD. Device function appears appropriate. Presenting EGM shows Aflutter with 2:1 ration with V rates at 90-110 bpm on 04/18/18 at 0200. Battery longevity 5.5 years. Known AF and anticoagulated. Events noted since 04/02/18: Atrial:26 AMS events with a AT/AF burden of 3.5%, pt looks to have gone into AFlutter on 04/17/18 at 1:33pm and is currently in Aflutter. Ventricular:None. Next follow up appt not scheduled yet. Next remote scheduled for 3 mo. Results routed to Dr. Fry for signature and review. __ Performing Organization Address City/State/Zipcode Phone Number OTHER OUTSIDE LAB in this encounter Visit Diagnoses Diagnosis Cardiac defibrillator in situ Automatic implantable cardiac defibrillator in situ
--- OUTSIDE RECORDS SUMMARY | 2018-07-12 19:34 | XMS REPORT | Clinical Summary ---
Author Author [facility] Organization [facility] Address Unknown Phone Unavailable Care Team Providers Care Hand Grinder Name Role Phone Brad Cummings MD PCP Source Comments Some departments are not documenting in the electronic medical record. If you do not see the information that you expected, contact Release of Information in the Health Information Management department at [phone] for further assistance in locating additional records.[facility] Allergies Active Allergy Reactions Severity Noted Date [...] tablet 3 Active tablet bedtime daily. 18 Active Problems Problem Noted Date HLD (hyperlipidemia) 03/19/2018 Type II diabetes mellitus (HCC) 03/19/2018 Essential hypertension 03/19/2018 Hypothyroidism 03/19/2018 Morbid obesity with BMI of 45.0-49.9, adult ([facility]) 03/19/2018 Nonischemic cardiomyopathy (HCC) 03/19/2018 Overview: 03/18/18: Cath at [facility] - normal coronaries Resolved Problems Problem Noted Date Resolved Date Cardiorenal syndrome 03/25/2018 04/03/2018 Infection due to parainfluenza virus 3 03/20/2018 04/03/2018 RYAN (acute kidney injury) ([facility]) 03/19/2018 04/03/2018 PAF (paroxysmal atrial fibrillation) ([facility]) 03/19/2018 04/03/2018 Junctional bradycardia 03/19/2018 04/03/2018 Acute systolic heart failure (HCC) 03/19/2018 04/03/2018 Pulmonary edema 03/19/2018 04/03/2018 Acute respiratory failure with hypoxia ([facility]) 03/19/2018 04/03/2018 Shock liver 03/19/2018 04/03/2018 Hyponatremia 03/19/2018 04/03/2018 Cardiogenic shock (HCC) 03/18/2018 04/03/2018 Encounters Date Type Specialty Care Team Description 04/25/2018 Documentation Cardiology Tyron Heaton LPN Lab Results 04/18/2018 Hospital Cardiology Jovanny Fry MD Encounter 04/18/2018 Telephone Cardiology Mariela Montelongo RN Follow-up Phone Call 04/18/2018 Ancillary Cardiology Jovanny Fry MD Cardiac defibrillator in Orders situ from Last 3 Months Social History Tobacco [...] SCREENING 1992 COLORECTAL CANCER 02/11/2002 SCREENING SHINGLES RECOMBINANT 02/11/2002 VACCINE (1 of 2) OSTEOPOROSIS SCREENING 02/11/2017 PNEUMONIA (PCV13/PPSV23) 02/11/2017 VACCINES (1 of 2 - PCV13) INFLUENZA VACCINE 08/26/2018 HBA1C 09/18/2018 03/19/2018 Procedures Procedure Name Priority Date/Time Associated Diagnosis Comments ECG-SCAN 04/14/2018 Results for this 4:15 PM CDT procedure are in the results section. from Last 3 Months Results * DEVICE EVALUATION - REMOTE ICD (04/18/2018 11:16 AM) Generator [place] OTHER OUTSIDE LAB Device Type DDD-ICD OTHER OUTSIDE LAB Wireless Generator Yes OTHER OUTSIDE LAB Generator MRI Conditional Yes OTHER OUTSIDE LAB Atrial Lead [place] [employer] OTHER OUTSIDE LAB Atrial Lead Model # TENDRIL MRI [id number] 52cm OTHER OUTSIDE LAB Atrial Lead Serial # [id number] OTHER OUTSIDE LAB Atrial Lead Implant Date 03/27/2018 OTHER OUTSIDE LAB Atrial Lead Fixation active fixation OTHER OUTSIDE LAB Atrial Lead Polarity Bipolar OTHER OUTSIDE LAB Atrial Lead Pin Connector IS1 OTHER OUTSIDE LAB Atrial Lead MRI Yes OTHER OUTSIDE LAB Conditional RV Lead [place] OTHER OUTSIDE LAB RV Lead Model # OPTISURE [id number] OTHER OUTSIDE LAB RV Lead Serial # [id number] OTHER OUTSIDE LAB RV Lead Implant Date 03/27/2018 OTHER OUTSIDE LAB RV Lead Fixation active fixation OTHER OUTSIDE LAB RV Lead Coil Single OTHER OUTSIDE LAB RV Lead MRI Conditional Yes OTHER OUTSIDE LAB Generator Model # ALLYSSAIFY EL HERNÁNDEZ [id number] OTHER OUTSIDE LAB Generator Serial # [id number] OTHER OUTSIDE LAB Generator Implnat Date 03/27/2018 OTHER OUTSIDE LAB Remote Monitor Serial# [id number] OTHER OUTSIDE LAB Accssory Serial Number [id number] OTHER OUTSIDE LAB Device [place] On Demand OTHER OUTSIDE LAB Transmitter Compatible [...] AF and anticoagulated Released on 04/28 via Igor for [employer] 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 AFL/Afib event started 06/19/18 @ 620 pm and lasted until ~215am. Peak A/V 640/157 bpm. High V rates noted with V rate > 110 bpm ~ 30 % of time in AF. [place] 5.6% since 04/02/18. 2 prior events since [...] Igor, pt follow with Dr Oliver in [place]. Call to pt and she confirms this. Says she was unaware of AF. Call to Dr Oliver's office and spoke with member of device team and provided them with device info needed to transfer pt and remote summary. They agree to transfer today. Routed to Dr Durán on servRL[employer] Entertainment. [04/28/2018 8:44:53 PM - ALKA BLAIR] Remote alert of AF. Presenting EGM shows ASVS 75 bpm. Multiple AMS events since 04/19, longest on 04/22 lasting 3 hours - EGM's show AT and some Flutter, none since 04/24/18. [place] now 16%. See attached for details. Remote released to [facility] in [place] per physician request. Routed to [facility] for cosign. [04/19/2018 10:47:30 AM - JAMSHID [...] Address City/State/Zipcode Phone Number OTHER OUTSIDE LAB * ECG-SCAN (04/14/2018 4:15 PM) Narrative Performed At Ordered by an unspecified provider. from Last 3 Months
--- OUTSIDE RECORDS SUMMARY | 2018-07-12 19:34 | XMS REPORT | Encounter Summary ---
Author Author [facility] Organization [facility] Address Unknown Phone Unavailable Care Team Providers Care Communication Studies Professor Name Role Phone Brad Cummings MD PCP Reason for Visit * Reason Comments Lab Results Encounter Details Date Type Department Care Team Description 04/25/2018 Documentation [facility] Tyron Heaton LPN Lab Results [facility] [place] [id number] Social History Tobacco Use Types Packs/Day Years [...] on fileas of this encounter Results * POC GLUCOSE (04/09/2018) Glucose POC 126 (A) 65 - 110 mg/dL OTHER OUTSIDE LAB Specimen Blood - Blood Performing Organization Address City/State/Zipcode Phone Number OTHER OUTSIDE LAB in this encounter Visit Diagnoses Not on filein this encounter
--- OUTSIDE RECORDS SUMMARY | 2018-07-12 19:34 | XMS REPORT | Encounter Summary ---
Author Author [facility] Organization [facility] Address Unknown Phone Unavailable Care Team Providers Care Science Professor Name Role Phone Brad Cummings MD PCP Reason for Visit * Reason Comments Follow-up Phone Call Encounter Details Date Type Department Care Team Description 04/18/2018 Telephone [facility] Cardiology Mariela Montelongo RN Follow- up Phone Call [place] [address] [address] [place] [address] Social History Tobacco Use Types Packs/Day Years Used Date Former Smoker Cigarettes 1 40 Comments: Quit 8 years ago Alcohol Use Drinks/Week oz/Week Comments Yes Occassionally Sex Assigned at Date Recorded Not on file as of this encounter Functional Status Functional Status Response Date of Assessment Does the patient have a hearing impairment: No 03/22/2018 as of this encounter Miscellaneous Notes * Telephone Encounter - Mariela Montelongo RN - 04/18/2018 4:23 PM CDT Formatting of this note may be different from the original. Alka Blair RN P Mac Nurse Ep [04/18/2018 11:17:26 AM - ALKA BLAIR] MAC NURSE EP Pool notified of abnormal remote for AF events Please see scanned data sheets for further review. Scheduled THIAGO transmission received for Dual chamber ICD. Device function appears appropriate. Presenting EGM shows Aflutter with 2:1 ration with V rates at 90-110 bpm on 04/18 at 0200. Battery longevity 5.5 years. Known AF and anticoagulated. Events noted since 04/02/18: Atrial: 26 AMS events with a AT/AF burden of 3.5%, pt looks to have gone into AFlutter on 04/17/18 at 1:33pm and is currently in Aflutter. Ventricular: None. Next follow up appt not scheduled yet. Next remote scheduled for 3 mo. Results routed to Dr. Fry for signature and review. Called patient to go over symptoms, patient is not having any at this time. Patient is going to be following cardiology at [facility] in [place] and would like her device transmissions sent to them instead. Patient has no further concerns or questions and was very abrupt on phone. in this encounter Plan of Treatment Not on fileas of this encounter Visit Diagnoses Not on filein this encounter
--- OUTSIDE RECORDS SUMMARY | 2018-07-12 19:34 | XMS REPORT | Encounter Summary ---
Author Author [facility] Organization [facility] Address Unknown Phone Unavailable Care Team Providers Care Stopper Maker Name Role Phone Brad Cummings MD PCP Encounter Details Date Type Department Care Team Description 04/18/2018 [facility] Cardiology Jovanny Fry MD Encounter Remote Device Check [address] [phone] [place], [place] [id number] Social History Tobacco Use Types Packs/Day Years [...] Take with food. as of this encounter Plan of Treatment Not on fileas of this encounter Results * DEVICE EVALUATION - REMOTE ICD (04/18/2018 11:16 AM) Generator [employer] [facility] OTHER OUTSIDE LAB Device Type DDD-ICD OTHER OUTSIDE LAB Wireless Generator Yes OTHER OUTSIDE LAB Generator MRI Conditional Yes OTHER OUTSIDE LAB Atrial Lead [employer] [facility] [facility] OTHER OUTSIDE LAB Atrial Lead Model # TENDRIL MRI [id number] 52cm OTHER OUTSIDE LAB Atrial Lead Serial # [id number] OTHER OUTSIDE LAB Atrial Lead Implant Date 03/27/2018 OTHER OUTSIDE LAB Atrial Lead Fixation active fixation OTHER OUTSIDE LAB Atrial Lead Polarity Bipolar OTHER OUTSIDE LAB Atrial Lead Pin Connector IS1 OTHER OUTSIDE LAB Atrial Lead MRI Yes OTHER OUTSIDE LAB Conditional RV Lead [employer] [facility] OTHER OUTSIDE LAB RV Lead Model # OPTISURE [id number] OTHER OUTSIDE LAB RV Lead Serial # [id number] OTHER OUTSIDE LAB RV Lead Implant Date 03/27/2018 OTHER OUTSIDE LAB RV Lead Fixation active fixation OTHER OUTSIDE LAB RV Lead Coil Single OTHER OUTSIDE LAB RV Lead MRI Conditional Yes OTHER OUTSIDE LAB Generator Model # NADINE GALLEGOS DR [id number] OTHER OUTSIDE LAB Generator Serial # [id number] OTHER OUTSIDE LAB Generator Implnat Date 03/27/2018 OTHER OUTSIDE LAB Remote Monitor Serial# [id number] OTHER OUTSIDE LAB Accssory Serial Number [id number] OTHER OUTSIDE LAB Device [employer]ing Thiago On [employer] OTHER OUTSIDE LAB Transmitter Compatible [...] AF and anticoagulated Released on 04/28 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 AFL/Afib event started 06/19/18 @ 620 pm and lasted until ~215am. Peak A/V 640/157 bpm. High V rates noted with V rate > 110 bpm ~ 30 % of time in AF. [place] 5.6% since 04/02/18. 2 prior events since [...] attached for more information. Per record and Thiago, pt follow with Dr Oliver in [place]. Call to pt and she confirms this. [...] AT and some Flutter, none since 04/24/18. [place] now 16%. See attached for details. Remote released to [facility] in [place] per physician request. Routed to [facility] for cosign. [04/19/2018 10:47:30 AM - JAMSHID VAUGHN] EP Nurse Pool was flagged yesterday morning for abnormal AF events. Grace Alert received today for exceeded AT/AF burden [...] for further review. Scheduled THIAGO transmission received forDual chamber ICD. Device function [...]
--- OUTSIDE RECORDS SUMMARY | 2018-07-12 19:35 | XMS REPORT | Continuity of Care Document ---
Author Author [facility] Address Unknown Phone Unavailable Allergies Active Description Code Type Severity Reaction Onset Reported/Identified Relationship to Patient Clinical Status Yes LATEX 27222413 ENVIRONMENTAL N/ A HIVES Yes PCN (penicillin) 45697712 CLASS N/A SNYCOPE Yes SOY [id number] FOOD N/A HIVES Yes LATEX MODERATE OTHER Yes PENICILLIN G SODIUM MILD OTHER Yes SOY MILD OTHER Yes SULFA (SULFONAMIDE ANTIBIOTICS) MILD DERMATOLOGICAL - HILARY Yes latex [id number] Drug Allergy Moderate HIVES 04/13/2009 Yes Penicillins [id number] Drug Allergy Mild "I GO TO SLEEP" [...] MASCORRO MD Ot 793.89 11/02/2014 BREEZY MASCORRO MD, Ot V76.12 12/01/2014 BREEZY MASCORRO MD, Ot 793.89 12/01/2014 BREEZY MASCORRO MD, Ot [...] PRIMARY OSTEOARTHRITIS, LEFT SHOULDER 10/25/2017 Miryam Eastman 250.00 DIABETES MELLITUS WITHOUT MENTION OF COMPLICATION, TYPE II OR UNSPECIFIED TYPE, NOT STATED UNCONTROLLED 10/25/2017 Miryam Eastman E11.9 TYPE 2 DIABETES MELLITUS WITHOUT COMPLICATIONS 10/25/2017 Miryam Eastman W 250.00 DIABETES MELLITUS WITHOUT MENTION OF COMPLICATION, TYPE II OR UNSPECIFIED TYPE, NOT STATED UNCONTROLLED 10/25/2017 Miryam Eastman 272.8 OTHER DISORDERS OF LIPOID METABOLISM 10/25/2017 [...] 11/22/2017 S L299 Pruritus, unspecified 11/22/2017 P [id number] Primary osteoarthritis, left shoulder 11/22/2017 S Z6841 Body mass index (BMI) 40.0-44.9, adult 11/22/2017 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 11/22/2017 S [id number] Other emt intermediate (current) drug therapy 11/22/2017 S Z880 Allergy status to penicillin 11/22/2017 S [id number] Latex allergy status 11/28/2017 [facility] TALAVERA 715.11 [...] FOLLOWING JOINT REPLACEMENT SURGERY 02/13/2018 [facility] TALAV[facility]A Z96.612 PRESENCE OF LEFT ARTIFICIAL [...] I48.0 PAROXYSMAL ATRIAL FIBRILLATION 03/18/2018 HUGH BARFIELD MD, Ot E11.9 TYPE 2 DIABETES MELLITUS WITHOUT [...] Ot Z87.891 PERSONAL HISTORY OF NICOTINE DEPENDENCE 04/11/2018 DOUG MAX MD Ot B37.0 CANDIDAL STOMATITIS 04/11/2018 DOUG MAX MD Ot E03.9 HYPOTHYROIDISM, UNSPECIFIED 04/11/2018 DOUG MAX MD Ot E11.59 TYPE 2 DIABETES MELLITUS WITH OTH CIRCUL 04/11/2018 DOUG MAX MD Ot E11.9 TYPE 2 DIABETES MELLITUS WITHOUT COMPLIC 04/11/2018 DOUG MAX MD Ot E66.01 MORBID (SEVERE) OBESITY DUE TO EXCESS CA 04/11/2018 DOUG MAX MD Ot E78.00 PURE HYPERCHOLESTEROLEMIA, UNSPECIFIED 04/11/2018 DOUG MAX MD Ot E78.5 HYPERLIPIDEMIA, UNSPECIFIED 04/11/2018 DOUG MAX MD Ot I10 ESSENTIAL (PRIMARY) HYPERTENSION 04/11/2018 DOUG MAX MD Ot I11.0 HYPERTENSIVE HEART DISEASE WITH HEART FA 04/11/2018 DOUG MAX MD Ot I25.10 ATHSCL HEART DISEASE OF [place] CORONARY 04/11/2018 DOUG MAX MD Ot I42.9 CARDIOMYOPATHY, UNSPECIFIED 04/11/2018 DOUG MAX MD Ot I48.0 PAROXYSMAL ATRIAL FIBRILLATION 04/11/2018 DOUG MAX MD Ot I50.22 CHRONIC SYSTOLIC (CONGESTIVE) HEART FAIL 04/11/2018 DOUG MAX MD Ot L30.4 ERYTHEMA INTERTRIGO 04/11/2018 DOUG MAX MD Ot Z68.41 BODY MASS INDEX (BMI) 40.0-44.9, ADULT 04/11/2018 DOUG MAX MD Ot Z79.4 DETENTION (CURRENT) USE OF INSULIN 04/11/2018 DOUG MAX MD Ot Z87.891 PERSONAL HISTORY OF NICOTINE DEPENDENCE 04/11/2018 DOUG MAX MD Ot Z95.810 PRESENCE OF AUTOMATIC (IMPLANTABLE) CARD 04/17/2018 RICARDO FERNANDEZ MD Ot I50.9 HEART FAILURE, UNSPECIFIED 04/17/2018 RICARDO FERNANDEZ MD Ot Z79.899 OTHER PRINT CUTTER (CURRENT) DRUG THERAPY 04/18/2018 RICARDO FERNANDEZ MD Ot E87.5 HYPERKALEMIA 04/18/2018 RICARDO FERNANDEZ MD Ot E87.5 HYPERKALEMIA 04/20/2018 MESSI VILLALOBOS MD Ot E11.649 TYPE 2 DIABETES MELLITUS WITH HYPOGLYCEM 04/20/2018 MESSI VILLALOBOS MD Ot E78.00 PURE HYPERCHOLESTEROLEMIA, UNSPECIFIED 04/20/2018 MESSI VILLALOBOS MD Ot F32.9 MAJOR DEPRESSIVE DISORDER, SINGLE EPISOD 04/20/2018 MESSI VILLALOBOS MD Ot I10 ESSENTIAL (PRIMARY) HYPERTENSION 04/20/2018 MESSI VILLALOBOS MD Ot I25.10 ATHSCL HEART DISEASE OF [place] CORONARY 04/20/2018 MESSI VILLALOBOS MD Ot I48.91 UNSPECIFIED ATRIAL FIBRILLATION 04/20/2018 MESSI VILLALOBOS MD Ot N17.9 ACUTE KIDNEY FAILURE, UNSPECIFIED 04/20/2018 MESSI VILLALOBOS MD Ot R60.0 LOCALIZED EDEMA 04/20/2018 MESSI VILLALOBOS MD Ot Z79.4 DETENTION (CURRENT) USE OF INSULIN 04/20/2018 MESSI VILLALOBOS MD Ot Z79.82 DETENTION (CURRENT) USE OF ASPIRIN 04/20/2018 MESSI VILLALOBOS MD Ot Z87.01 PERSONAL HISTORY OF PNEUMONIA (RECURRENT 04/20/2018 MESSI VILLALOBOS MD Ot Z87.19 PERSONAL HISTORY OF OTHER DISEASES OF TH 04/20/2018 MESSI VILLALOBOS MD Ot Z88.0 ALLERGY STATUS TO PENICILLIN 04/20/2018 MESSI VILLALOBOS MD Ot Z91.040 LATEX ALLERGY STATUS 04/20/2018 MESSI VILLALOBOS MD Ot Z95.810 PRESENCE OF AUTOMATIC (IMPLANTABLE) CARD 04/22/2018 MESSI VILLALOBOS MD Ot E11.649 TYPE 2 DIABETES MELLITUS WITH HYPOGLYCEM 04/22/2018 MESSI VILLALOBOS MD Ot E78.00 PURE HYPERCHOLESTEROLEMIA, UNSPECIFIED 04/22/2018 MESSI VILLALOBOS MD Ot F32.9 MAJOR DEPRESSIVE DISORDER, SINGLE EPISOD 04/22/2018 MESSI VILLALOBOS MD Ot I10 ESSENTIAL (PRIMARY) HYPERTENSION 04/22/2018 MESSI VILLALOBOS MD Ot I25.10 ATHSCL HEART DISEASE OF [place] CORONARY 04/22/2018 MESSI VILLALOBOS MD Ot I48.91 UNSPECIFIED ATRIAL FIBRILLATION 04/22/2018 MESSI VILLALOBOS MD Ot N17.9 ACUTE KIDNEY FAILURE, UNSPECIFIED 04/22/2018 MESSI VILLALOBOS MD Ot R60.0 LOCALIZED EDEMA 04/22/2018 MESSI VILLALOBOS MD Ot Z79.4 PRINT CUTTER (CURRENT) USE OF INSULIN 04/22/2018 MESSI VILLALOBOS MD Ot Z79.82 PRINT CUTTER (CURRENT) USE OF ASPIRIN 04/22/2018 MESSI VILLALOBOS MD Ot Z87.01 PERSONAL HISTORY OF PNEUMONIA (RECURRENT 04/22/2018 MESSI VILLALOBOS MD Ot Z87.19 PERSONAL HISTORY OF OTHER DISEASES OF TH 04/22/2018 MESSI VILLALOBOS MD Ot Z88.0 ALLERGY STATUS TO PENICILLIN 04/22/2018 MESSI VILLALOBOS MD Ot Z91.040 LATEX ALLERGY STATUS 04/22/2018 MESSI VILLALOBOS MD Ot Z95.810 PRESENCE OF AUTOMATIC (IMPLANTABLE) CARD 04/25/2018 REBECCA GARRETT, RICARDO Ot E87.5 HYPERKALEMIA 04/26/2018 MESSI VILLALOBOS MD Ot E11.649 TYPE 2 DIABETES MELLITUS WITH HYPOGLYCEM 04/26/2018 MESSI VILLALOBOS MD Ot E78.00 PURE HYPERCHOLESTEROLEMIA, UNSPECIFIED 04/26/2018 MESSI VILLALOBOS MD Ot F32.9 MAJOR DEPRESSIVE DISORDER, SINGLE EPISOD 04/26/2018 MESSI VILLALOBOS MD Ot I10 ESSENTIAL (PRIMARY) HYPERTENSION 04/26/2018 MESSI VILLALOBOS MD Ot I25.10 ATHSCL HEART DISEASE OF [place] CORONARY 04/26/2018 MESSI VILLALOBOS MD Ot I48.91 UNSPECIFIED ATRIAL FIBRILLATION 04/26/2018 MESSI VILLALOBOS MD Ot N17.9 ACUTE KIDNEY FAILURE, UNSPECIFIED 04/26/2018 MESSI VILLALOBOS MD Ot R60.0 LOCALIZED EDEMA 04/26/2018 MESSI VILLALOBOS MD Ot Z79.4 DETENTION (CURRENT) USE OF INSULIN 04/26/2018 MESSI VILLALOBOS MD Ot Z79.82 PRINT CUTTER (CURRENT) USE OF ASPIRIN 04/26/2018 WILFREDO GARRETT, MESSI Savage Ot Z87.01 PERSONAL HISTORY OF PNEUMONIA (RECURRENT 04/26/2018 WILFREDO GARRETT, MESSI Savage Ot Z87.19 PERSONAL HISTORY OF OTHER DISEASES OF TH 04/26/2018 WILFREDO GARRETT, MESSI Savage Ot Z88.0 ALLERGY STATUS TO PENICILLIN 04/26/2018 MESSI VILLALOBOS MD Ot Z91.040 LATEX ALLERGY STATUS 04/26/2018 MESSI VILLALOBOS MD Ot Z95.810 PRESENCE OF AUTOMATIC (IMPLANTABLE) CARD 04/29/2018 RICARDO FERNANDEZ MD, Ot E87.5 HYPERKALEMIA 04/30/2018 SUBHA GARRETT, BREEZY Douglass Ot Z12.31 ENCNTR SCREEN MAMMOGRAM FOR MALIGNANT NE 05/02/2018 RICARDO FERNANDEZ MD, Ot I50.9 HEART FAILURE, UNSPECIFIED 05/02/2018 RICARDO FERNANDEZ MD, Ot Z79.899 OTHER DETENTION (CURRENT) DRUG THERAPY 05/09/2018 RICARDO FERNANDEZ MD, Ot E87.5 HYPERKALEMIA Procedures Code Description Performed By Performed On [id number] Replacement of Left Shoulder Joint with Reverse Ball and Socket Synthetic Substitute, Open Approach 11/20/2017 [id number] ASSIST WITH CARDIAC OUTPUT USING BALLOON 03/18/2018 [id number] RESPIRATORY VENTILATION, LESS THAN 24 CO 03/18/2018 [id number] FLUOROSCOPY OF LEFT HEART USING LOW OSMO 03/18/2018 Results Test Result Range CBC with Auto Diff - 11/07/16 10:48 Baso% 0.50 % 0.00-2.50 Eos 0.3 K/uL 0.0-0.7 Eos% 5.5 % 0.0-7.0 Hct 44.9 % 36.0-46.0 Hgb 14.4 g/dL 13.0-15.0 Lym 1.21 K/uL 0.60-3.40 Lym% 19.5 % 10.0-50.0 MCH 28.9 pg 27.0-31.0 MCHC 32.1 g/dL 32.0-36.0 MCV 90.2 fL 80.0-97.0 Stark% 7.3 % 0.0-12.0 MPV 12.2 fL 7.4-10.0 Turner% 67.2 % 37.0-80.0 Plt 183 K/uL 150-400 RBC 4.98 M/uL 3.60-5.00 RDW 14.3 % 11.6-14.8 WBC 6.19 K/uL 5.00-10.00 Turner 4.16 K/uL 2.00-6.90 Stark 0.5 K/uL 0.0-0.9 Baso 0.0 K/uL 0.0-0.2 [...] at 13:54 on 06/26/2017 Surgical Pathology - 08/04/17 13:27 Surg Path Sent to [facility] Thyroid Stimulating Hormone - 10/25/17 10:30 [...] No Growth Day 5 CULTURE SOURCE LEFT [id number] Blood Culture - 03/17/18 18:50 PRELIM CULTURE RESULTS Blood Culture Negative, No Growth Day 1 FINAL CULTURE RESULTS Blood Culture Negative, No Growth Day 5 CULTURE SOURCE LEFT [id number] Methicillin resistant Staphylococcus aureus (MRSA) screening [...] GROWTH Moderate Growth NRG Bacterial sputum culture [id number] NRG Arterial blood gas measurement - 03/18/18 [...] NRG Measurement of body temperature 96.4 NRG Capillary blood glucose measurement by glucometer (mass/volume) - 04/03/18 17: 55 Capillary blood glucose measurement by glucometer (mass/volume) 337 mg/dL 70-110 Capillary blood glucose measurement by glucometer (mass/volume) - 04/04/18 05: 06 Capillary blood glucose measurement by glucometer (mass/volume) 121 mg/dL 70-110 Complete blood count (CBC) with automated white blood cell (WBC) differential - 04/04/18 06:49 Blood leukocytes automated count (number/volume) 4.9 10*3/uL 4.3-11.0 Blood erythrocytes automated count (number/volume) 4.10 10*6/uL 4.35-5.85 Venous blood hemoglobin measurement (mass/volume) 11.2 g/dL 11.5-16.0 Blood hematocrit (volume fraction) 36 % 35-52 Automated erythrocyte mean corpuscular volume 87 [foz_us] 80-99 Automated erythrocyte mean corpuscular hemoglobin (mass per erythrocyte) 27 pg 25-34 Automated erythrocyte mean corpuscular hemoglobin concentration measurement ( mass/volume) 32 g/dL 32-36 Automated erythrocyte distribution width ratio 16.4 % 10.0-14.5 Automated blood platelet count (count/volume) 144 10*3/uL 130-400 Automated blood platelet mean volume measurement 10.9 [foz_us] 7.4-10.4 Automated blood neutrophils/100 leukocytes 67 % 42-75 Automated blood lymphocytes/100 leukocytes 15 % 12-44 Blood monocytes/100 leukocytes 13 % 0-12 Automated blood eosinophils/100 leukocytes 5 % 0-10 Automated blood basophils/100 leukocytes 1 % 0-10 Blood neutrophils automated count (number/volume) 3.3 10*3 1.8-7.8 Blood lymphocytes automated count (number/volume) 0.7 10*3 1.0-4.0 Blood monocytes automated count (number/volume) 0.6 10*3 0.0-1.0 Automated eosinophil count 0.3 10*3/uL 0.0-0.3 Automated blood basophil count (count/volume) 0.1 10*3/uL 0.0-0.1 Comprehensive metabolic panel - 04/04/18 06:49 Serum or plasma sodium measurement (moles/volume) 137 mmol/L 135-145 Serum or plasma potassium measurement (moles/volume) 4.6 mmol/L 3.6-5.0 Serum or plasma chloride measurement (moles/volume) 101 mmol/L 98-107 Carbon dioxide 28 mmol/L 21-32 Serum or plasma anion gap determination (moles/volume) 8 mmol/L 5-14 Serum or plasma urea nitrogen measurement (mass/volume) 33 mg/dL 7-18 Serum or plasma creatinine measurement (mass/volume) 0.98 mg/dL 0.60-1.30 Serum or plasma urea nitrogen/creatinine mass ratio 34 NRG Serum or plasma creatinine measurement with calculation of estimated glomerular filtration rate 57 NRG Serum or plasma glucose measurement (mass/volume) 109 mg/dL 70-105 Serum or plasma calcium measurement (mass/volume) 8.9 mg/dL 8.5-10.1 Serum or plasma total bilirubin measurement (mass/volume) 1.2 mg/dL 0.1-1.0 Serum or plasma alkaline phosphatase measurement (enzymatic activity/volume) 64 U/L 40-136 Serum or plasma aspartate aminotransferase measurement (enzymatic activity/ volume) 22 U/L 5-34 Serum or plasma alanine aminotransferase measurement (enzymatic activity/volume ) 33 U/L 0-55 Serum or plasma protein measurement (mass/volume) 6.3 g/dL 6.4-8.2 Serum or plasma albumin measurement (mass/volume) 3.3 g/dL 3.2-4.5 Capillary blood glucose measurement by glucometer (mass/volume) - 04/04/18 11: 05 Capillary blood glucose measurement by glucometer (mass/volume) 150 mg/dL 70-110 Capillary blood glucose measurement by glucometer (mass/volume) - 04/04/18 16: 06 Capillary blood glucose measurement by glucometer (mass/volume) 81 mg/dL 70-110 Capillary blood glucose measurement by glucometer (mass/volume) - 04/04/18 21: 12 Capillary blood glucose measurement by glucometer (mass/volume) 74 mg/dL 70-110 Capillary blood glucose measurement by glucometer (mass/volume) - 04/05/18 05: 31 Capillary blood glucose measurement by glucometer (mass/volume) 79 mg/dL 70-110 Capillary blood glucose measurement by glucometer (mass/volume) - 04/05/18 11: 09 Capillary blood glucose measurement by glucometer (mass/volume) 95 mg/dL 70-110 Capillary blood glucose measurement by glucometer (mass/volume) - 04/05/18 16: 48 Capillary blood glucose measurement by glucometer (mass/volume) 147 mg/dL 70-110 Capillary blood glucose measurement by glucometer (mass/volume) - 04/05/18 21: 14 Capillary blood glucose measurement by glucometer (mass/volume) 143 mg/dL 70-110 Capillary blood glucose measurement by glucometer (mass/volume) - 04/06/18 05: 49 Capillary blood glucose measurement by glucometer (mass/volume) 69 mg/dL 70-110 Capillary blood glucose measurement by glucometer (mass/volume) - 04/06/18 11: 12 Capillary blood glucose measurement by glucometer (mass/volume) 81 mg/dL 70-110 Capillary blood glucose measurement by glucometer (mass/volume) - 04/06/18 16: 14 Capillary blood glucose measurement by glucometer (mass/volume) 141 mg/dL 70-110 Capillary blood glucose measurement by glucometer (mass/volume) - 04/06/18 20: 22 Capillary blood glucose measurement by glucometer (mass/volume) 204 mg/dL 70-110 Capillary blood glucose measurement by glucometer (mass/volume) - 04/06/18 21: 59 Capillary blood glucose measurement by glucometer (mass/volume) 153 mg/dL 70-110 Capillary blood glucose measurement by glucometer (mass/volume) - 04/07/18 04: 48 Capillary blood glucose measurement by glucometer (mass/volume) 79 mg/dL 70-110 Capillary blood glucose measurement by glucometer (mass/volume) - 04/07/18 12: 05 Capillary blood glucose measurement by glucometer (mass/volume) 66 mg/dL 70-110 Capillary blood glucose measurement by glucometer (mass/volume) - 04/07/18 16: 34 Capillary blood glucose measurement by glucometer (mass/volume) 124 mg/dL 70-110 Capillary blood glucose measurement by glucometer (mass/volume) - 04/07/18 20: 18 Capillary blood glucose measurement by glucometer (mass/volume) 155 mg/dL 70-110 Capillary blood glucose measurement by glucometer (mass/volume) - 04/08/18 05: 35 Capillary blood glucose measurement by glucometer (mass/volume) 75 mg/dL 70-110 Capillary blood glucose measurement by glucometer (mass/volume) - 04/08/18 11: 58 Capillary blood glucose measurement by glucometer (mass/volume) 102 mg/dL 70-110 Capillary blood glucose measurement by glucometer (mass/volume) - 04/08/18 16: 12 Capillary blood glucose measurement by glucometer (mass/volume) 139 mg/dL 70-110 Capillary blood glucose measurement by glucometer (mass/volume) - 04/08/18 21: 03 Capillary blood glucose measurement by glucometer (mass/volume) 266 mg/dL 70-110 Capillary blood glucose measurement by glucometer (mass/volume) - 04/09/18 06: 15 Capillary blood glucose measurement by glucometer (mass/volume) 83 mg/dL 70-110 Capillary blood glucose measurement by glucometer (mass/volume) - 04/09/18 11: 14 Capillary blood glucose measurement by glucometer (mass/volume) 109 mg/dL 70-110 Capillary blood glucose measurement by glucometer (mass/volume) - 04/09/18 16: 26 Capillary blood glucose measurement by glucometer (mass/volume) 126 mg/dL 70-110 Capillary blood glucose measurement by glucometer (mass/volume) - 04/09/18 20: 42 Capillary blood glucose measurement by glucometer (mass/volume) 123 mg/dL 70-110 Capillary blood glucose measurement by glucometer (mass/volume) - 04/10/18 05: 46 Capillary blood glucose measurement by glucometer (mass/volume) 71 mg/dL 70-110 Whole blood basic metabolic panel - 04/10/18 06:37 Serum or plasma sodium measurement (moles/volume) 135 mmol/L 135-145 Serum or plasma potassium measurement (moles/volume) 5.3 mmol/L 3.6-5.0 Serum or plasma chloride measurement (moles/volume) 97 mmol/L 98-107 Carbon dioxide 26 mmol/L -32 Serum or plasma anion gap determination (moles/volume) 12 mmol/L 5-14 Serum or plasma urea nitrogen measurement (mass/volume) 54 mg/dL 7-18 Serum or plasma creatinine measurement (mass/volume) 1.49 mg/dL 0.60-1.30 Serum or plasma urea nitrogen/creatinine mass ratio 36 NRG Serum or plasma creatinine measurement with calculation of estimated glomerular filtration rate 35 NRG Serum or plasma glucose measurement (mass/volume) 85 mg/dL 70-105 Serum or plasma calcium measurement (mass/volume) 10.1 mg/dL 8.5-10.1 Magnesium - 04/10/18 06:37 Magnesium 1.8 mg/dL 1.8-2.4 Capillary blood glucose measurement by glucometer (mass/volume) - 04/10/18 11: 02 Capillary blood glucose measurement by glucometer (mass/volume) 104 mg/dL 70-110 Capillary blood glucose measurement by glucometer (mass/volume) - 04/10/18 16: 12 Capillary blood glucose measurement by glucometer (mass/volume) 122 mg/dL 70-110 Capillary blood glucose measurement by glucometer (mass/volume) - 04/10/18 20: 53 Capillary blood glucose measurement by glucometer (mass/volume) 150 mg/dL 70-110 Capillary blood glucose measurement by glucometer (mass/volume) - 04/11/18 05: 45 Capillary blood glucose measurement by glucometer (mass/volume) 63 mg/dL 70-110 Comprehensive metabolic panel - 04/11/18 10:25 Serum or plasma sodium measurement (moles/volume) 135 mmol/L 135-145 Serum or plasma potassium measurement (moles/volume) 5.6 mmol/L 3.6-5.0 Serum or plasma chloride measurement (moles/volume) 98 mmol/L 98-107 Carbon dioxide 25 mmol/L -32 Serum or plasma anion gap determination (moles/volume) 12 mmol/L 5-14 Serum or plasma urea nitrogen measurement (mass/volume) 59 mg/dL 7-18 Serum or plasma creatinine measurement (mass/volume) 1.69 mg/dL 0.60-1.30 Serum or plasma urea nitrogen/creatinine mass ratio 35 NRG Serum or plasma creatinine measurement with calculation of estimated glomerular filtration rate 30 NRG Serum or plasma glucose measurement (mass/volume) 109 mg/dL 70-105 Serum or plasma calcium measurement (mass/volume) 10.1 mg/dL 8.5-10.1 Serum or plasma total bilirubin measurement (mass/volume) 0.8 mg/dL 0.1-1.0 Serum or plasma alkaline phosphatase measurement (enzymatic activity/volume) 64 U/L 40-136 Serum or plasma aspartate aminotransferase measurement (enzymatic activity/ volume) 35 U/L 5-34 Serum or plasma alanine aminotransferase measurement (enzymatic activity/volume ) 53 U/L 0-55 Serum or plasma protein measurement (mass/volume) 7.5 g/dL 6.4-8.2 Serum or plasma albumin measurement (mass/volume) 4.1 g/dL 3.2-4.5 Capillary blood glucose measurement by glucometer (mass/volume) - 04/11/18 11: 12 Capillary blood glucose measurement by glucometer (mass/volume) 89 mg/dL 70-110 Complete blood count (CBC) with automated white blood cell (WBC) differential - 04/16/18 09:32 Blood leukocytes automated count (number/volume) 6.4 10*3/uL 4.3-11.0 Blood erythrocytes automated count (number/volume) 4.46 10*6/uL 4.35-5.85 Venous blood hemoglobin measurement (mass/volume) 12.6 g/dL 11.5-16.0 Blood hematocrit (volume fraction) 39 % 35-52 Automated erythrocyte mean corpuscular volume 88 [foz_us] 80-99 Automated erythrocyte mean corpuscular hemoglobin (mass per erythrocyte) 28 pg 25-34 Automated erythrocyte mean corpuscular hemoglobin concentration measurement ( mass/volume) 32 g/dL 32-36 Automated erythrocyte distribution width ratio 19.4 % 10.0-14.5 Automated blood platelet count (count/volume) 193 10*3/uL 130-400 Automated blood platelet mean volume measurement 11.5 [foz_us] 7.4-10.4 Automated blood neutrophils/100 leukocytes 71 % 42-75 Automated blood lymphocytes/100 leukocytes 14 % 12-44 Blood monocytes/100 leukocytes 11 % 0-12 Automated blood eosinophils/100 leukocytes 3 % 0-10 Automated blood basophils/100 leukocytes 1 % 0-10 Blood neutrophils automated count (number/volume) 4.6 10*3 1.8-7.8 Blood lymphocytes automated count (number/volume) 0.9 10*3 1.0-4.0 Blood monocytes automated count (number/volume) 0.7 10*3 0.0-1.0 Automated eosinophil count 0.2 10*3/uL 0.0-0.3 Automated blood basophil count (count/volume) 0.1 10*3/uL 0.0-0.1 Whole blood basic metabolic panel - 04/16/18 09:32 Serum or plasma sodium measurement (moles/volume) 136 mmol/L 135-145 Serum or plasma potassium measurement (moles/volume) 5.7 mmol/L 3.6-5.0 Serum or plasma chloride measurement (moles/volume) 99 mmol/L 98-107 Carbon dioxide 24 mmol/L Serum or plasma anion gap determination (moles/volume) 13 mmol/L 5-14 Serum or plasma urea nitrogen measurement (mass/volume) 69 mg/dL 18 Serum or plasma creatinine measurement (mass/volume) 3.17 mg/dL 0.60-1.30 Serum or plasma urea nitrogen/creatinine mass ratio 22 NRG Serum or plasma creatinine measurement with calculation of estimated glomerular filtration rate 15 NRG Serum or plasma glucose measurement (mass/volume) 74 mg/dL 70-105 Serum or plasma calcium measurement (mass/volume) 10.0 mg/dL 8.5-10.1 Magnesium - 04/16/18 09:32 Magnesium 1.6 mg/dL 1.8-2.4 Digoxin - 04/16/18 09:32 Digoxin 0.61 ng/mL 0.80-2.00 Whole blood basic metabolic panel - 04/19/18 09:15 Serum or plasma sodium measurement (moles/volume) 127 mmol/L 135-145 Serum or plasma potassium measurement (moles/volume) 6.2 mmol/L 3.6-5.0 Serum or plasma chloride measurement (moles/volume) 91 mmol/L 98-107 Carbon dioxide 20 mmol/L Serum or plasma anion gap determination (moles/volume) 16 mmol/L 5-14 Serum or plasma urea nitrogen measurement (mass/volume) 77 mg/dL -18 Serum or plasma creatinine measurement (mass/volume) 4.35 mg/dL 0.60-1.30 Serum or plasma urea nitrogen/creatinine mass ratio 18 NRG Serum or plasma creatinine measurement with calculation of estimated glomerular filtration rate 10 NRG Serum or plasma glucose measurement (mass/volume) 95 mg/dL 70-105 Serum or plasma calcium measurement (mass/volume) 10.1 mg/dL 8.5-10.1 Complete blood count (CBC) with automated white blood cell (WBC) differential - 04/19/18 23:25 Blood leukocytes automated count (number/volume) 7.4 10*3/uL 4.3-11.0 Blood erythrocytes automated count (number/volume) 4.45 10*6/uL 4.35-5.85 Venous blood hemoglobin measurement (mass/volume) 12.8 g/dL 11.5-16.0 Blood hematocrit (volume fraction) 38 % 35-52 Automated erythrocyte mean corpuscular volume 86 [foz_us] 80-99 Automated erythrocyte mean corpuscular hemoglobin (mass per erythrocyte) 29 pg 25-34 Automated erythrocyte mean corpuscular hemoglobin concentration measurement ( mass/volume) 34 g/dL 32-36 Automated erythrocyte distribution width ratio 19.4 % 10.0-14.5 Automated blood platelet count (count/volume) 151 10*3/uL 130-400 Automated blood platelet mean volume measurement 11.1 [foz_us] 7.4-10.4 Automated blood neutrophils/100 leukocytes 72 % 42-75 Automated blood lymphocytes/100 leukocytes 16 % 12-44 Blood monocytes/100 leukocytes 11 % 0-12 Automated blood eosinophils/100 leukocytes 1 % 0-10 Automated blood basophils/100 leukocytes 0 % 0-10 Blood neutrophils automated count (number/volume) 5.3 10*3 1.8-7.8 Blood lymphocytes automated count (number/volume) 1.2 10*3 1.0-4.0 Blood monocytes automated count (number/volume) 0.8 10*3 0.0-1.0 Automated eosinophil count 0.1 10*3/uL 0.0-0.3 Automated blood basophil count (count/volume) 0.0 10*3/uL 0.0-0.1 Comprehensive metabolic panel - 04/19/18 23:25 Serum or plasma sodium measurement (moles/volume) 128 mmol/L 135-145 Serum or plasma potassium measurement (moles/volume) 6.4 mmol/L 3.6-5.0 Serum or plasma chloride measurement (moles/volume) 89 mmol/L 98-107 Carbon dioxide 20 mmol/L 21-32 Serum or plasma anion gap determination (moles/volume) 19 mmol/L 5-14 Serum or plasma urea nitrogen measurement (mass/volume) 83 mg/dL 7-18 Serum or plasma creatinine measurement (mass/volume) 5.13 mg/dL 0.60-1.30 Serum or plasma urea nitrogen/creatinine mass ratio 16 NRG Serum or plasma creatinine measurement with calculation of estimated glomerular filtration rate 8 NRG Serum or plasma glucose measurement (mass/volume) 45 mg/dL 70-105 Serum or plasma calcium measurement (mass/volume) 10.2 mg/dL 8.5-10.1 Serum or plasma total bilirubin measurement (mass/volume) 0.6 mg/dL 0.1-1.0 Serum or plasma alkaline phosphatase measurement (enzymatic activity/volume) 46 U/L 40-136 Serum or plasma aspartate aminotransferase measurement (enzymatic activity/ volume) 42 U/L 5-34 Serum or plasma alanine aminotransferase measurement (enzymatic activity/volume ) 73 U/L 0-55 Serum or plasma protein measurement (mass/volume) 7.2 g/dL 6.4-8.2 Serum or plasma albumin measurement (mass/volume) 4.2 g/dL 3.2-4.5 Magnesium - 04/19/18 23:25 Magnesium 1.7 mg/dL 1.8-2.4 Serum or plasma C reactive protein measurement (mass/volume) - 04/19/18 23:25 Serum or plasma C reactive protein measurement (mass/volume) 0.36 mg /dL 0.00-0.50 Capillary blood glucose measurement by glucometer (mass/volume) - 04/19/18 23: 28 Capillary blood glucose measurement by glucometer (mass/volume) 54 mg/dL 70-110 Capillary blood glucose measurement by glucometer (mass/volume) - 04/20/18 00: 31 Capillary blood glucose measurement by glucometer (mass/volume) 69 mg/dL 70-110 Encounters ACCT No. Visit Date/Time Discharge Status Pt. Type Provider Facility Loc./Unit Complaint [id number] 11/23/2017 12:01:53 11/23/2017 23:59:59 CLS Outpatient Symone Stephen [id number] 03/17/2018 16:54:00 03/17/2018 19:20:[id number]2017 12:20:00 02/13/2018 11:46:00 DIS Outpatient CUCO TALAVERA [id number] 10/31/2017 00:00:00 10/31/2017 23:59:00 DIS Outpatient Miryam Eastman [id number] 10/25/2017 11:54:00 10/25/2017 23:59:00 DIS Outpatient ReinierRadhahy [id number] 09/11/2017 13:28:00 10/23/2017 14:54:00 DIS Outpatient KEMI, OSEAS [id number] 08/31/2017 10:36:00 08/31/2017 23:59:00 DIS Outpatient OSEAS MCMULLEN [id number] 06/29/2017 00:00:00 06/29/2017 14:57:00 DIS Outpatient Ace Myers [id number] 06/26/2017 12:12:00 06/26/2017 23:59:00 DIS Outpatient Ace Myers [id number] 06/13/2017 08:55:00 06/13/2017 23:59:00 DIS Outpatient Ace Myers [id number] 06/11/2017 08:06:00 06/11/2017 23:59:00 DIS Outpatient Ace Myers [id number] 05/25/2017 10:58:00 05/25/2017 23:59:00 DIS Outpatient Ace Myers [id number] 05/23/2017 09:36:00 05/23/2017 23:59:00 DIS Outpatient Ace Myers [id number] 05/21/2017 09:41:00 05/21/2017 23:59:00 DIS Outpatient Ace Myers [id number] 11/07/2016 10:43:00 11/07/2016 23:59:00 DIS Outpatient Miryam Eastman [id number] 06/29/2017 09:58:39 Document Registration [id number] 06/10/2018 12:28:00 06/10/2018 23:59:59 CLS Outpatient Jonny CHOE MD [facility] CARD ATRIAL FIBRILLATION, CONGESTIVE HEART DISEASE [id number] 04/19/2018 23:00:00 04/20/2018 01:38:00 DIS Emergency WILFREDO GARRETT, MESSI Savage [facility] ER SUGAR IS LOW [id number] 04/19/2018 10:46:00 04/19/2018 23:59:59 CLS Outpatient RICARDO FERNANDEZ MD [facility] ELEVATED POTASIUM [id number] 04/17/2018 08:00:00 04/17/2018 23:59:59 CLS Outpatient RICARDO FERNANDEZ MD [facility] ELEVATED POTASSIUM [id number] 04/16/2018 08:00:00 04/16/2018 23:59:59 CLS Outpatient RICARDO FERNANDEZ MD [facility] CHF DIGORIN THERAPY [id number] 04/03/2018 13:15:00 04/11/2018 13:10:00 DIS Inpatient MANSOOR GARRETT, DOUG Molina [facility] IRF CARDIOGENIC SHOCK [id number] 03/17/2018 19:50:00 03/18/2018 22:22:00 DIS Inpatient CAROLYNE GARRETT, HUGH Fuller [facility] ICU AFIB W/ RVR [id number] 02/19/2018 10:04:00 02/19/2018 23:59:59 CLS Outpatient BREEZY MASCORRO MD [facility] RAD ROUTINE SCREENING [id number] 01/04/2017 10:55:00 01/04/2017 23:59:59 CLS Outpatient BREEZY MASCORRO MD [facility] RAD SCREENING [id number] 10/12/2015 14:06:00 10/12/2015 23:59:59 CLS Outpatient BREEZY MASCORRO MD [facility] RAD ROUTINE SCREENING [id number] 12/01/2014 11:32:00 12/01/2014 23:59:59 CLS Outpatient BREEZY MASCORRO MD [facility] RAD ABNORMAL MAMMO [id number] 10/08/2014 10:23:00 10/08/2014 23:59:59 CLS Outpatient SUBHA GARRETT, BREEZY Douglass [facility] RAD SCREENING [id number] 09/30/2013 10:31:00 09/30/2013 23:59:59 CLS Outpatient [id number] 12/01/2014 11:33:49 ACT Document Registration [id number] 11/08/2017 06:58:38 Document Registration [id number] 11/06/2017 11:43:27 Document Registration
[2018-07-12] MEDS ORDERED: NS IV 1000 ML 1,000 ML ONE (19:58)
[2018-07-12] MEDS: NS IV 1000 ML 1,000 ML IV SCH (21:09)
[2018-07-12] MEDS ORDERED: NS IV 1000 ML 1,000 ML IV SCH (21:30)
[2018-07-12] MEDS ORDERED: CATHETER FLUSH 10 ML SYR IV PRN (21:30)
[2018-07-12] MEDS ORDERED: DILTIAZEM 125 MG/D5W 100 ML DRIP IV SCH ×2 (21:30)
[2018-07-12] MEDS: CATHETER FLUSH 10 ML SYR IV SCH (22:00)
[2018-07-13] VITALS (59 sets, daily range): BP systolic 99–167; BP diastolic 56–133
[2018-07-13 04:12] LABS: BASOPHILS % (AUTO) 1 % (0-10); EOSINOPHILS # (AUTO) 0.2 10^3/uL (0.0-0.3); EOSINOPHILS % (AUTO) 4 % (0-10); HEMATOCRIT 42 % (35-52); HEMOGLOBIN 13.4 G/DL (11.5-16.0); LYMPHOCYTES # (AUTO) 1.4 X 10^3 (1.0-4.0); LYMPHOCYTES % (AUTO) 24 % (12-44); MEAN CORPUSCULAR HEMOGLOBIN 29 PG (25-34); MEAN CORPUSCULAR HGB CONC 32 G/DL (32-36); MEAN CORPUSCULAR VOLUME 92 FL (80-99); MEAN PLATELET VOLUME 11.8 FL (7.4-10.4); MONOCYTES # (AUTO) 0.5 X 10^3 (0.0-1.0); MONOCYTES % (AUTO) 8 % (0-12); NEUTROPHILS # (AUTO) 3.6 X 10^3 (1.8-7.8); NEUTROPHILS % (AUTO) 64 % (42-75); PLATELET COUNT 141 10^3/uL (130-400); RED BLOOD COUNT 4.58 10^6/uL (4.35-5.85); RED CELL DISTRIBUTION WIDTH 14.5 % (10.0-14.5); WHITE BLOOD COUNT 5.7 10^3/uL (4.3-11.0)
[2018-07-13 04:32] LABS: ALBUMIN 3.8 GM/DL (3.2-4.5); BILIRUBIN,TOTAL 0.4 MG/DL (0.1-1.0); CALCIUM 9.5 MG/DL (8.5-10.1); CREATININE SERUM 0.95 MG/DL (0.60-1.30); POTASSIUM 3.9 MMOL/L (3.6-5.0); TOTAL PROTEIN 6.4 GM/DL (6.4-8.2)
[2018-07-13 04:57] LABS: MAGNESIUM 2.1 MG/DL (1.8-2.4); PHOSPHORUS 3.9 MG/DL (2.3-4.7)
[2018-07-13] MEDS: MAGNESIUM 1 GM/100 ML IVPB 100 ML IV SCH (05:00)
[2018-07-13] MEDS: KCL 20 MEQ TAB (K-DUR) PO SCH (05:00)
[2018-07-13] MEDS: POTASSIUM CL 10MEQ/50ML IVPB 50 ML IV SCH (05:00)
[2018-07-13] MEDS: CATHETER FLUSH 10 ML SYR IV SCH ×3 (05:01→21:23)
[2018-07-13] MEDS ORDERED: ENOXAPARIN 100 MG/1 ML (LOVENOX) SYR SC SCH (06:30)
[2018-07-13] MEDS ORDERED: SPIRONOLACTONE 25 MG (ALDACTONE) TAB PO ONE (10:00)
[2018-07-13] MEDS ORDERED: AMIODARONE FOR BOLUS 150 MG in D5W 100 ML IVPB 100 ML IV ONE (10:00)
[2018-07-13] MEDS ORDERED: APIXABAN 5 MG (ELIQUIS) TABLET PO ONE (10:00)
[2018-07-13] MEDS: AMIODARONE 200 MG (CORDARONE) TAB PO SCH ×2 (10:38→21:22)
[2018-07-13] MEDS: CARVEDILOL 6.25 MG (COREG) TAB PO SCH ×2 (10:39→21:22)
--- NOTE | 2018-07-13 10:45 | Diagnostic Imaging Report ---
INDICATION: Shortness of breath. Comparison made with prior examination 07/12/2018. FINDINGS: There is cardiomegaly. There is no pleural effusion or pneumothorax. Mediastinum is unremarkable. Pacemaker overlies left hemithorax. IMPRESSION: No acute cardiopulmonary abnormality. Cardiomegaly. Dictated by: Dictated on workstation # [id number]
[2018-07-13] MEDS: AMIODARONE INJECTION 450 MG in D5W IV SOLUTION (EXCEL) 250 ML IV SCH ×2 (11:02→21:23)
[2018-07-13] MEDS ORDERED: IRON18TA PO (11:50)
--- NOTE | 2018-07-13 12:30 | Consultation-Hospitalist ---
HPI History of Present Illness: HPI/Chief Complaint Mrs. Kebede is a pleasant 68-year-old white female with over 10 year history of type II diabetes mellitus who is feeling well up until she underwent defibrillator shock while walking the day of her admission. Should not been having any problems with chest discomfort shortness of breath or dyspnea on exertion prior. When she presented emergency room she was in a fibrillation with a rapid ventricular response. Her defibrillator was interrogated and she reportedly had runs of ventricular tachycardia. She's had a past history of paroxysmal fibrillation with nonischemic cardiomyopathy and a reported ejection fraction the 20 percent range. After her workup for heart failure which included negative heart catheter she underwent defibrillator placement at . She had an admission in February for acute kidney injury likely due to acute tubular necrosis from hypotension and severe hypoglycemia likely brought on by ongoing liver IV therapy in the face of renal failure. Since that admission she had been doing relatively well. She reports her diabetes has been under better control and they've actually cut back on her insulin as her last glycosylated hemoglobin was 5.3 percent. She missed last night's Levemir as well as this morning's Levemir and is only on additional Januvia 100 mg now. She denies any recent hypoglycemic symptoms or low blood sugar levels since her last admission toward the end of February. She denies numbness or pain in her feet and reports no past history of laser therapy for diabetic eye disease. This is questionable however as she states that they have seen some blood spots on the back of her eyes so she likely does have some background diabetic retinopathy. Date Seen 07/13/18 Attending Physician Sarah Wyatt MD PCP Portia Pablo MD Referring Physician Date of Admission Jul 12, 2018 at 18:23 Home Medications & Allergies Home Medications Reviewed patient Home Medication Reconciliation performed by pharmacy medication reconciliations sales service technician and/or nursing. Patients Allergies have been reviewed. Allergies Allergies Coded Allergies latex (Verified Allergy, Intermediate, HIVES, 04/13/09) Penicillins (Verified Allergy, Mild, "I GO TO SLEEP", 04/13/09) Past Iqgjeke-Gekmek-Tbjsie Hx Past Med/Social Hx: Reviewed Nursing Past Med/Soc Hx, Reviewed and Corrections made Patient Social History Alcohol Use: Rarely Uses Number of Drinks Today: 0 Alcohol Beverage of Choice: Other Recreational Drug Use: No Smoking Status: Former Smoker Former Smoker, Quit: Jul 12, 2004 Type Used: Cigarettes Physical Abuse Screen: No Sexual Abuse: No Recent Foreign Travel: No Contact w/other who traveled: No Recent Hopitalizations: Yes (ppm placement-here, [facility], ARU here, [facility]) Recent Infectious Disease Expo: No Immunizations Up To Date Tetanus Booster (TDap): Unknown Pediatric: No Seasonal Allergies Seasonal Allergies: No Past Medical History Surgeries: Defibrillator, Hysterectomy, Oophorectomy, Tonsillectomy Currently Using CPAP: No Currently Using BIPAP: No Cardiac: Atrial Fibrillation, Chronic Edema/Swelling, Coronary Artery Disease, High Cholesterol, Hypertension Reproductive: Yes Sexually Transmitted Disease: No Gastrointestinal: Liver Disease/Jaundice Musculoskeletal: Arthritis Endocrine: Diabetes, Insulin dep, Hypothyroidsim Are Your Blood Sugars Over 250: No HEENT: Cataract Psychosocial: Depression History of Blood Disorders: No Family History Cardiovascular disease 19 FATHER, Onset:50's - 60 Review of Systems Constitutional: no symptoms reported, see HPI; No chills, No diaphoresis, No dizziness, No fever, No malaise, No weakness, No weight gain, No weight loss Respiratory: no symptoms reported; No cough, No dyspnea on exertion, No hemoptysis, No orthopnea, No phlegm, No short of breath, No stridor, No wheezing Cardiovascular: see HPI; No chest pain, No edema; Hx of Intervention; No palpitations, No syncope, No vascular heart diseas, No other Physical Exam Physical Exam Vital Signs Vital Signs - First Documented 07/12/18 07/12/18 17:52 19:45 Temp 96.6 Pulse 125 Resp 16 B/P (MAP) 133/94 (107) Pulse Ox 94 O2 Delivery Room Air O2 Flow Rate 3.00 Capillary Refill : Less Than 3 Seconds Height, Weight, BMI Height: 5'1.00" Weight: 203lbs. 8.0oz. 92.967528mh; 37.8 BMI Method:Stated General Appearance: No Apparent Distress, Obese Neck: Full Range of Motion, Normal Inspection, Non Tender, Supple, Carotid Bruit Respiratory: Chest Non Tender, Lungs Clear, Normal Breath Sounds, No Accessory Muscle Use, No Respiratory Distress Cardiovascular: No Edema, No Gallop, No JVD, No Murmur, Normal Peripheral Pulses, Irregularly Irregular (Rate in the 70s to 80s) Gastrointestinal: Normal Bowel Sounds, No Organomegaly, No Pulsatile Mass, Non Tender, Soft Extremity: Normal Capillary Refill, Normal Inspection, Normal Range of Motion, Non Tender, No Calf Tenderness, No Pedal Edema, Other (No callus formation sores or evidence for tenia pedis) Neurologic/Psychiatric: Alert, Oriented x3, No Motor/Sensory Deficits, Normal Mood/Affect Results Results/Procedures Labs Laboratory Tests 07/12/18 17:46 07/13/18 03:32 Patient resulted labs reviewed. Assessment/Plan Assessment and Plan Assess & Plan/Chief Complaint 1. Type II diabetes mellitus on basal insulin therapy. She has missed 2 doses so we'll initiate sliding scale regular insulin and resume basal therapy at this evening at 10 units Levemir twice a day. As we do not carry Januvia will hold this medication and the patient can resume it as an outpatient. Her control reportedly has been good as of late. 2. Nonischemic dilated cardiomyopathy with reported ventricular tachycardia post ICD discharge complicated by paroxysmal atrial fibrillation management per Dr. Campos rate currently controlled being switched to oral therapy. 3. Recent history of acute kidney injury likely acute tubular necrosis from hypotension resolved. Critical Care Critical Care: Critically Ill Patient Clinical Quality Measures DVT/VTE Risk/Contraindication: Risk Factor Score Per Nursin RFS Level Per Nursing on Admit: 3=High SADA BAUGH MD Jul 13, 2018 12:30
[2018-07-13] MEDS: inSUlin ASPART (NovoLOG) 1 UNIT/0.01 ML (CHARGE PER UNIT) SC SCH ×2 (16:17→21:23)
[2018-07-13] MEDS: NS IV 1000 ML 1,000 ML IV SCH (16:41)
[2018-07-13] MEDS ORDERED: CARVEDILOL 6.25 MG (COREG) TAB PO SCH (21:00)
[2018-07-13] MEDS: APIXABAN 5 MG (ELIQUIS) TABLET PO SCH (21:22)
[2018-07-13] MEDS: inSUlin DETERMIR 1 UNIT/0.01 ML (LEVEMIR) CHARGE PER UNIT SQ SCH (21:23)
[2018-07-13] MEDS: ACETAMINOPHEN 325 MG TABLET PO PRN (22:04)
[2018-07-14] VITALS (47 sets, daily range): BP systolic 103–183; BP diastolic 56–111
[2018-07-14] MEDS ORDERED: BUMETANIDE 1 MG/4 ML (BUMEX) VIAL IV ONE (01:00)
[2018-07-14 03:45] LABS: HEMOGLOBIN 14.7 G/DL (11.5-16.0); MEAN PLATELET VOLUME 11.1 FL (7.4-10.4); RED BLOOD COUNT 5.06 10^6/uL (4.35-5.85); RED CELL DISTRIBUTION WIDTH 14.9 % (10.0-14.5); WHITE BLOOD COUNT 11.8 10^3/uL (4.3-11.0)
[2018-07-14 04:17] LABS: ALBUMIN 4.1 GM/DL (3.2-4.5); BILIRUBIN,TOTAL 0.5 MG/DL (0.1-1.0); CALCIUM 9.4 MG/DL (8.5-10.1); CREATININE SERUM 1.04 MG/DL (0.60-1.30); POTASSIUM 4.8 MMOL/L (3.6-5.0); TOTAL PROTEIN 6.8 GM/DL (6.4-8.2)
[2018-07-14 04:51] LABS: MAGNESIUM 2.1 MG/DL (1.8-2.4); PHOSPHORUS 4.5 MG/DL (2.3-4.7)
[2018-07-14 05:05] LABS: ABG BASE EXCESS -1.7 MMOL/L (-2.5-2.5); ABG OXYGEN SATURATION 89 % (94-100); ABG PCO2 62 MMHG (35-45); ABG PO2 63 MMHG (79-93); ABG TCO2 58.5 MMOL/L (21.0-31.0)
[2018-07-14 05:06] LABS: ALLENS TEST POSITIVE; INSPIRED O2 12L HFNC; PATIENT TEMP 96.3; VENTILATOR NO
[2018-07-14 05:08] LABS: ABG PH 7.23 (7.37-7.43)
[2018-07-14] MEDS ORDERED: NITROGLYCERIN 0.4 MG SL TABS BTL 25'S SL ONE ×2 (05:14→06:00)
--- NOTE | 2018-07-14 05:26 | Pulmonary Consultation ---
History of Present Illness History of Present Illness Date of Consultation 07/14/18 05:19 Time Seen by Provider: 05:19 Date of Admission Reason for Visit: Shock from the defibrillator History of Present Illness 68yo with hx of DM II, severe cardiomyopathy she was recently transferred to 04/12 secondary to cardiogenic shock and a defibrillator/pacemaker was placed. She presented to ED after she received a shock from her defibrillator. Pt was found to have Afib RVR. After her defibrillator was interrogated it showed that she was having runs of V tach. This AM patient started to have worsening SOB and hypoxia. She was placed on Vapotherm at 95% and Sp02 93%. ABG just resulted and shows acute respiratory acidosis. PT denies productive cough. She is complaining of nonradiating/nonpleuritic Chest pressure and feeling very hot. I am being consulted for respiratory distress/hypoxia. Allergies and Home Medications Allergies Coded Allergies: latex (Verified Allergy, Intermediate, HIVES, 04/13/09) Penicillins (Verified Allergy, Mild, "I GO TO SLEEP", 04/13/09) Home Medications Acetaminophen 650 Mg Tablet.er, 650 MG PO Q6H PRN for PAIN-MILD, (Reported) Apixaban 5 Mg Tablet, 5 MG PO BID Prescribed by: DOUG MAX on 04/11/18921 Bumetanide 1 Mg Tablet, 2 MG PO DAILY Prescribed by: DOUG MAX on 04/11/18921 Glimepiride 2 Mg Tablet, 2 MG PO BID, (Reported) Insulin Detemir 100 Unit/1 Ml Insuln.pen, 8 UNITS SC BID, (Reported) Iron 18 Mg Tablet, 28 MG PO DAILY, (Reported) Levothyroxine Sodium 125 Mcg Tablet, 125 MCG PO DAILY, (Reported) Lisinopril 10 Mg Tablet, 5 MG PO DAILY, (Reported) Metformin HCl 1,000 Mg Tablet, 1,000 MG PO BID WITH MEALS, (Reported) Paroxetine HCl 40 Mg Tablet, 40 MG PO DAILY, (Reported) Simvastatin 40 Mg Tablet, 40 MG PO HS, (Reported) Sitagliptin Phosphate 100 Mg Tablet, 100 MG PO DAILY, (Reported) Past Rnyshfr-Begljw-Zpsufc Hx Past Med/Social Hx: Reviewed Nursing Past Med/Soc Hx, Reviewed and Corrections made Patient Social History Alcohol Use: Rarely Uses Number of Drinks Today: 0 Alcohol Beverage of Choice: Other Recreational Drug Use: No Smoking Status: Former Smoker Type Used: Cigarettes Former Smoker, Quit: Jul 12, 2004 Recent Foreign Travel: No Contact w/Someone Who Travel: No Recent Infectious Disease Expo: No Recent Hopitalizations: Yes (ppm placement-here, [facility], ARU here, [facility]) Physical Abuse: No Sexual Abuse: No Mistreated: No Fear: No Immunizations Up To Date Tetanus Booster (TDap): Unknown PED Vaccines UTD: No Seasonal Allergies Seasonal Allergies: No Past Medical History Surgeries: Yes (DENTAL, CARPAL TUNNEL, L SHOUDER,L KNEE) Defibrillator, Hysterectomy, Oophorectomy, Tonsillectomy Respiratory: Yes Pneumonia Currently Using CPAP: No Currently Using BIPAP: No Cardiac: Yes (pacemaker and defib vhmifd-lwbgejnrjgz-fkhoosqlrnm shock) Atrial Fibrillation, Chronic Edema/Swelling, Coronary Artery Disease, High Cholesterol, Hypertension Neurological: No Reproductive Disorders: Yes Sexually Transmitted Disease: No Genitourinary: Yes (acute kidney injury) Gastrointestinal: No Liver Disease/Jaundice Musculoskeletal: Yes (left knee bone on bone) Arthritis Endocrine: Yes Diabetes, Insulin dep, Hypothyroidsim Are Your Blood Sugars Over 250: No HEENT: Yes Cataract Cancer: No Psychosocial: Yes Depression Nursing Suicide Risk Score: 0 Integumentary: No Blood Disorders: No Family Medical History Cardiovascular disease 19 FATHER, Onset:50's - 60 Review of Systems Time Seen by Provider: 05:37 Constitutional: Sweats, Weakness, Malaise; No: Fever, Chills Eyes: No: Pain, Vision change, Conjunctivae inflammation, Eyelid inflammation, Other, Redness ENT: No: Ear pain, Ear discharge, Nose pain, Nose discharge, Nose congestion, Mouth pain, Mouth swelling, Throat pain, Throat swelling, Other Respiratory: Dry, Shortness of breath, SOB with excertion; No: Cough, Wheezing , Hemoptysis, Pleuritic Pain, Sputum Cardiovascular: Chest Pain, Palpitations, Paroxysmal Noc. Dyspnea; No: Edema Gastrointestinal: Nausea; No: Vomiting, Abdominal Pain, Diarrhea, Constipation Genitourinary: No Dysuria, No Frequency, No Incontinence Neurological: Weakness, Confusion Sepsis Event Evaluation Height, Weight, BMI Height: 5'1.00" Weight: 203lbs. 8.0oz. 92.721927ed; 37.8 BMI Method:Stated Exam Exam Vital Signs Date Time Temp Pulse Resp B/P (MAP) Pulse Ox O2 Delivery O2 Flow Rate FiO2 07/14/18 04:59 92 Vapotherm 40.00 95 07/14/18 04:00 60 18 169/93 (118) 93 High Flow N/C 12.00 07/14/18 03:59 62 14 95 High Flow N/C 12.00 07/14/18 03:45 71 14 176/95 (122) 89 Nasal Cannula 6.00 07/14/18 03:30 60 15 127/83 (98) 87 Nasal Cannula 6.00 07/14/18 03:15 60 12 158/93 (114) 86 Nasal Cannula 6.00 07/14/18 03:00 61 21 176/101 (126) 88 Nasal Cannula 6.00 07/14/18 02:45 60 16 159/86 (110) 86 Nasal Cannula 6.00 07/14/18 02:30 60 15 161/89 (113) 88 Nasal Cannula 6.00 07/14/18 02:15 60 14 155/89 (111) 89 Nasal Cannula 6.00 07/14/18 02:00 63 21 156/82 (106) 89 Nasal Cannula 6.00 07/14/18 01:45 60 15 161/82 (108) 90 Nasal Cannula 6.00 07/14/18 01:30 60 14 163/85 (111) 90 Nasal Cannula 6.00 07/14/18 01:26 60 18 164/85 (111) 86 Nasal Cannula 6.00 07/14/18 01:15 60 18 166/95 (118) 91 Nasal Cannula 5.00 07/14/18 01:00 61 20 170/92 (118) 89 Nasal Cannula 5.00 07/14/18 01:00 61 07/14/18 00:45 71 14 166/84 (111) 86 Nasal Cannula 5.00 07/14/18 00:30 63 11 157/79 (105) 85 Nasal Cannula 5.00 07/14/18 00:15 61 14 146/78 (100) 90 Nasal Cannula 5.00 07/14/18 00:00 89 Nasal Cannula 5.00 07/14/18 00:00 96.8 60 15 133/111 (118) 97 Nasal Cannula 5.00 07/13/18 23:45 59 20 130/78 (95) 87 Nasal Cannula 3.00 1818 23:30 60 16 129/71 (90) 88 Nasal Cannula 3.00 81818 23:15 60 15 147/72 (97) 88 Nasal Cannula 3.00 81818 23:00 60 15 138/77 (97) 89 Nasal Cannula 3.00 81818 22:45 60 21 142/80 (100) 89 Nasal Cannula 3.00 81818 22:30 60 26 138/80 (99) 90 Nasal Cannula 3.00 81818 22:15 62 14 134/83 (100) 90 Nasal Cannula 3.00 81818 22:00 60 15 166/87 (113) 89 Nasal Cannula 3.00 818 21:45 60 27 145/81 (102) 89 Nasal Cannula 3.00 81818 21:30 59 22 135/117 (123) 89 Nasal Cannula 3.00 81818 21:15 60 19 145/78 (100) 90 Nasal Cannula 3.00 818 21:00 60 10 167/89 (115) 90 Nasal Cannula 3.00 818/18 20:45 60 34 129/117 (121) 93 Nasal Cannula 3.00 81818 20:30 60 33 163/84 (110) 90 Nasal Cannula 3.00 818 20:15 60 31 142/79 (100) 90 Nasal Cannula 3.00 81818 20:00 60 28 146/79 (101) 89 Nasal Cannula 3.00 18 20:00 92 Nasal Cannula 3.00 818 19:45 60 22 136/81 (99) 90 Nasal Cannula 2.00 81818 19:30 60 23 144/77 (99) 87 Nasal Cannula 2.00 81818 19:15 60 29 147/72 (97) 91 Nasal Cannula 2.00 81818 19:04 60 18 19:00 110 818/18 19:00 110 13 151/133 (139) 90 Nasal Cannula 2.00 81818 18:45 112 14 151/102 (118) 93 Nasal Cannula 2.00 81818 18:00 91 37 134/97 (109) 92 Nasal Cannula 2.00 81818 17:00 87 11 139/79 (99) 90 Nasal Cannula 2.00 18 16:25 Nasal Cannula 2.00 18 16:15 97.2 88 20 144/98 (113) 94 Nasal Cannula 2.00 1818 16:00 74 14 138/103 (115) 93 Nasal Cannula 2.00 07/13/18 15:00 99 18 117/86 (96) 95 Nasal Cannula 2.00 07/13/18 14:00 89 40 137/92 (107) 94 Nasal Cannula 2.00 07/13/18 13:00 89 28 109/76 (87) 93 Nasal Cannula 2.00 07/13/18 13:00 86 07/13/18 12:45 102 19 111/73 (86) 92 Nasal Cannula 2.00 07/13/18 12:30 101 9 130/100 (110) 86 Nasal Cannula 2.00 07/13/18 12:15 72 21 123/98 (106) 94 Nasal Cannula 2.00 07/13/18 12:00 74 15 115/79 (91) 96 Nasal Cannula 2.00 07/13/18 11:45 85 21 112/102 (105) 94 Nasal Cannula 2.00 07/13/18 11:40 Nasal Cannula 2.00 07/13/18 11:31 Nasal Cannula 3.00 07/13/18 11:31 97.5 07/13/18 11:30 70 8 114/70 (85) 98 Nasal Cannula 2.00 07/13/18 11:15 69 15 115/81 (92) 88 Nasal Cannula 2.00 07/13/18 11:00 65 13 119/99 (106) 90 Nasal Cannula 2.00 18 10:45 75 9 124/91 (102) 94 Nasal Cannula 2.00 07/13/18 10:30 63 12 136/83 (100) 92 Nasal Cannula 2.00 18 10:15 90 11 120/68 (85) 94 Nasal Cannula 2.00 1818 10:00 90 11 120/68 (85) 94 Nasal Cannula 2.00 07/13/18 09:45 79 9 115/80 (92) 98 Nasal Cannula 2.00 07/13/18 09:30 67 9 110/101 (104) 96 Nasal Cannula 2.00 8/18/18 09:15 80 19 135/77 (96) 95 Nasal Cannula 2.00 07/13/18 09:00 66 10 116/70 (85) 96 Nasal Cannula 2.00 07/13/18 08:45 73 11 99/56 (70) 93 Nasal Cannula 2.00 07/13/18 08:30 97 20 132/107 (115) 88 Nasal Cannula 2.00 07/13/18 08:15 72 9 119/80 (93) 95 Nasal Cannula 3.00 07/13/18 08:00 86 13 143/105 (118) 97 Nasal Cannula 3.00 07/13/18 07:45 66 13 165/94 (117) 94 Nasal Cannula 3.00 07/13/18 07:30 66 10 160/96 (117) 96 Nasal Cannula 3.00 07/13/18 07:22 97.4 07/13/18 07:22 Nasal Cannula 3.00 07/13/18 07:15 71 13 139/78 (98) 95 Nasal Cannula 3.00 07/13/18 07:00 59 11 131/89 (103) 95 Nasal Cannula 3.00 07/13/18 07:00 59 07/13/18 06:00 61 11 116/66 (83) 94 Nasal Cannula 3.00 I & O 07/14/18 07:00 Intake Total 2592 ml Output Total 1825 ml Balance 767 ml Height & Weight Height: 5'1.00" Weight: 203lbs. 8.0oz. 92.040177po; 37.8 BMI Method:Stated General Appearance: Moderate Distress, Obese HEENT: PERRL/EOMI, TMs Normal, Normal ENT Inspection, Pharynx Normal Neck: Full Range of Motion, Normal Inspection, Non Tender, Supple, Carotid Bruit Respiratory: Chest Non Tender, Accessory Muscle Use, Crackles, Decreased Breath Sounds, Respiratory Distress; No Wheezing Cardiovascular: No Edema, No Gallop, No JVD, No Murmur, Normal Peripheral Pulses, Irregularly Irregular (Rate in the 70s to 80s) Capillary Refill: Less Than 3 Seconds Extremity: Normal Capillary Refill, Normal Inspection, Normal Range of Motion, Non Tender, No Calf Tenderness, No Pedal Edema, Other (No callus formation sores or evidence for tenia pedis) Neurologic/Psychiatric: Alert, Oriented x3, No Motor/Sensory Deficits, Normal Mood/Affect Skin: Normal Color, Warm/Dry Lymphatic: No Adenopathy Results Lab Laboratory Tests 07/12/18 17:46 07/13/18 03:32 07/14/18 03:37 Assessment/Plan Assessment/Plan Acute respiratory failure -Marie vapotherm to BiPAP -Bumex -Hep lock IVF -Check troponins X 3 -Will give SL nitro Leukocytosis - no fever -check [place] cultures and LA Cardiomyopathy with EF 20% with ICD/pacemaker - Cardiology is following Afib/V tach -Amio gtt currently CAD Hypothyroid -Restart home Synthroid and check TSH Critical Care: Critically Ill Patient JAMI CHANG DO Jul 14, 2018 05:26
[2018-07-14] MEDS: POTASSIUM CL 10MEQ/50ML IVPB 50 ML IV SCH (05:58)
[2018-07-14] MEDS: CATHETER FLUSH 10 ML SYR IV SCH ×3 (05:58→21:24)
[2018-07-14] MEDS: KCL 20 MEQ TAB (K-DUR) PO SCH (05:59)
[2018-07-14] MEDS: inSUlin ASPART (NovoLOG) 1 UNIT/0.01 ML (CHARGE PER UNIT) SC SCH ×4 (05:59→21:26)
[2018-07-14] MEDS: MAGNESIUM 1 GM/100 ML IVPB 100 ML IV SCH (05:59)
[2018-07-14 07:18] LABS: BILIRUBIN,URINE NEGATIVE (NEGATIVE); CLARITY,URINE SLIGHTLY CLOUDY; COLOR,URINE YELLOW; GLUCOSE, URINE (UA) NEGATIVE (NEGATIVE); KETONES,URINE NEGATIVE (NEGATIVE); LEUKOCYTE ESTERASE ,URINE NEGATIVE (NEGATIVE); NITRITE,URINE NEGATIVE (NEGATIVE); PH,URINE 5 (5-9); PROTEIN,URINE 2+ (NEGATIVE); UROBILINOGEN,URINE NORMAL (NORMAL)
[2018-07-14 07:33] LABS: BACTERIA,URINE TRACE /HPF; SQUAMOUS EPITHELIAL CELL,UR 0-2 /HPF
[2018-07-14] MEDS ORDERED: FUROSEMIDE 40 MG/4 ML INJ (LASIX) IVP ONE (08:15)
--- NOTE | 2018-07-14 08:19 | Cardiology Progress Note ---
Subjective Date Seen by Provider: Jul 14, 2018 Time Seen by Provider: 08:16 Subjective/Events-last exam Patient is on Vapotherm, was in respiratory failure, has been improving. Back to sinus/atrial paced rhythm Review of Systems General: No Chills, No Night Sweats; Fatigue, Malaise; No Appetite, No Other HEENT: No Head Aches, No Visual Changes, No Eye Pain, No Ear Pain, No Dysphasia , No Sinus Congestion, No Post Nasal Drip, No Sore Throat, No Other Pulmonary: Dyspnea; No Cough, No Pleuritic Chest Pain, No Other Cardiovascular: Edema; No: Chest Pain, Palpitations, Orthopnea, Paroxysmal Noc. Dyspnea, Lt Headedness, Other Focused Exam Lactate Level 07/14/18 06:27: Lactic Acid Level 1.27 Lactic Acid Level Laboratory Tests Test 07/14/18 06:27 Lactic Acid Level 1.27 MMOL/L (0.50-2.00) Objective-Cardiology Exam Last Set of Vital Signs Vital Signs 07/14/18 07/14/18 07/14/18 07/14/18 07/14/18 00:00 04:59 06:15 06:45 07:00 Temp 96.8 Pulse 60 Resp 16 B/P (MAP) 156/78 (104) Pulse Ox 96 O2 Delivery NIV Bilevel O2 Flow Rate 70.00 FiO2 95 Capillary Refill : Less Than 3 Seconds I&O Intake and Output 07/14/18 00:00 Intake Total 3267 ml Output Total 2100 ml Balance 1167 ml Intake Oral 1780 ml IV Total 1487 ml Output Urine Total 2100 ml General: Alert, Oriented X3, Cooperative, Moderate Distress HEENT: Atraumatic, PERRLA Neck: Supple, No JVD, No Thyromegaly Lungs: Normal Air Movement, Other (Bilateral rhonchi) Heart: Regular Rate, Normal S1, Normal S2, Other (Systolic murmur) Abdomen: Normal Bowel Sounds, Soft, No Tenderness, No Hepatosplenomegaly, No Masses Extremities: No Clubbing, No Cyanosis, Normal Pulses, No Tenderness/Swelling, Other (Mild edema) Skin: No Rashes, No Breakdown, No Significant Lesion Neuro: Normal Gait, Normal Speech, Strength at 5/5 X4 Ext, Normal Tone, Sensation Intact Psych/Mental Status: Mental Status NL, Mood NL Results Lab Laboratory Tests 07/14/18 03:37 A/P-Cardiology Admission Diagnosis Atrial fibrillation Ventricular tachycardia Congestive heart failure, chronic compensated left ventricular systolic dysfunction, nonischemic cardiomyopathy Hyperlipidemia Assessment/Plan Acute respiratory failure, on Vapotherm, given Bumex, I will give additional dose of Lasix IV and monitor closely. Status post atrial fibrillation with rapid ventricular response, treated with Cardizem and amiodarone, back to atrial paced rhythm. Continue to monitor at this time. Ventricular tachycardia, patient received a shock from her defibrillator, given loading dose of amiodarone and started on amiodarone orally. History of ICD, send Rommel, interrogation was done in the emergency room, multiple episodes of atrial fibrillation, episodes of ventricular tachycardia, could be due to rapid ventricular response of the atrial fibrillation. Back to atrial paced rhythm Severe cardiomyopathy nonischemic, acute on chronic left ventricular systolic dysfunction, ejection fraction 20 percent, I discontinued lisinopril and planning to start Entresto tomorrow Diabetes mellitus, followed and managed by primary care physician Hypertension, history of hypotensive shock in March 2018 resistant to multiple medications, blood pressure is better at this time. Continue to monitor Hyperlipidemia, has been on simvastatin. History of mild coronary artery disease per cardiac catheterization in March [address] Ramesh Status post renal failure. Improved. Continue to monitor renal function. Hypothyroidism, followed and managed by primary care physician. BMI is 39, we discussed weight loss. Clinical Quality Measures DVT/VTE Risk/Contraindication: Risk Factor Score Per Nursin RFS Level Per Nursing on Admit: 3=High MARY DAVENPORT MD Jul 14, 2018 08:19
[2018-07-14] MEDS: CARVEDILOL 6.25 MG (COREG) TAB PO SCH ×2 (08:31→21:24)
[2018-07-14] MEDS: LEVOTHYROXINE 125 MCG (LEVOTHROID) TABLET PO SCH (08:31)
[2018-07-14] MEDS: SPIRONOLACTONE 25 MG (ALDACTONE) TAB PO SCH (08:31)
[2018-07-14] MEDS: APIXABAN 5 MG (ELIQUIS) TABLET PO SCH ×2 (08:31→21:24)
[2018-07-14] MEDS: AMIODARONE 200 MG (CORDARONE) TAB PO SCH ×2 (08:31→21:25)
[2018-07-14] MEDS: inSUlin DETERMIR 1 UNIT/0.01 ML (LEVEMIR) CHARGE PER UNIT SQ SCH ×2 (08:32→21:27)
--- NOTE | 2018-07-14 08:53 | Diagnostic Imaging Report ---
INDICATION: Hypoxemia EXAMINATION: Chest 07/14/2018 COMPARISON: 07/13/18 FINDINGS: Heart is prominent and there is pulmonary vascular congestion with findings of edema throughout both lungs. Left effusion is small. Adjacent atelectasis versus infiltrate possible. Left-sided pacemaker stable. IMPRESSION: 1. Pulmonary edema with small left pleural effusion noted. 2. Possible left base infiltrate. Followup recommended to assure resolution. Other findings as above. Dictated by: Dictated on workstation # [id number]
[2018-07-14] MEDS ORDERED: SIMV20TA3 PO ×2 (09:20→09:21)
[2018-07-14] MEDS ORDERED: BUME2TAB3 PO (09:22)
[2018-07-14] MEDS ORDERED: IRON18TA PO (10:56)
[2018-07-14] MEDS ORDERED: CARV12.53 PO (10:56)
[2018-07-14] MEDS ORDERED: CARV6.252 PO (10:56)
--- NOTE | 2018-07-14 11:32 | Progress Note-Hospitalist ---
Subjective HPI/CC On Admission Date Seen by Provider: Jul 14, 2018 Time Seen by Provider: 09:30 Mrs. Kebede is a pleasant 68-year-old white female with over 10 year history of type II diabetes mellitus who is feeling well up until she underwent defibrillator shock while walking the day of her admission. Should not been having any problems with chest discomfort shortness of breath or dyspnea on exertion prior. When she presented emergency room she was in a fibrillation with a rapid ventricular response. Her defibrillator was interrogated and she reportedly had runs of ventricular tachycardia. She's had a past history of paroxysmal fibrillation with nonischemic cardiomyopathy and a reported ejection fraction the 20 percent range. After her workup for heart failure which included negative heart catheter she underwent defibrillator placement at . She had an admission in February for acute kidney injury likely due to acute tubular necrosis from hypotension and severe hypoglycemia likely brought on by ongoing liver IV therapy in the face of renal failure. Since that admission she had been doing relatively well. She reports her diabetes has been under better control and they've actually cut back on her insulin as her last glycosylated hemoglobin was 5.3 percent. She missed last night's Levemir as well as this morning's Levemir and is only on additional Januvia 100 mg now. She denies any recent hypoglycemic symptoms or low blood sugar levels since her last admission toward the end of February. She denies numbness or pain in her feet and reports no past history of laser therapy for diabetic eye disease. This is questionable however as she states that they have seen some blood spots on the back of her eyes so she likely does have some background diabetic retinopathy. Subjective/Events-last exam Despite converting to sinus rhythm ventricularly paced yesterday evening following this she developed progressive shortness of breath with chest pressure. Due to hypoxia she is converted to Vapotherm and then ultimately switched to BiPAP per Dr. Guerra. This morning she was sleeping with BiPAP on upon my arrival around 9 in no acute distress. Upon awakening she reports no chest pain cough and is had no chills or fever. She denies any sputum production. Echo done yesterday sounds as though was relatively stable from her last study with ejection fraction severely depressed around 20 percent with known dilated nonischemic cardiomyopathy. There've been no in-hospital defibrillator discharges. Focused Exam Lactate Level 07/14/18 06:27: Lactic Acid Level 1.27 Objective Exam Vital Signs Vital Signs Date Time Temp Pulse Resp B/P (MAP) Pulse Ox O2 Delivery O2 Flow Rate FiO2 07/14/18 11:00 61 18 103/83 (90) 91 High Flow N/C 6.00 07/14/18 08:37 60 07/14/18 08:30 97.3 Capillary Refill : Less Than 3 Seconds General Appearance: No Apparent Distress (Although last night she was in distress with hypoxia) Respiratory: Chest Non Tender, No Accessory Muscle Use, No Respiratory Distress , Other (Rales the midlung magallon noted bilaterally no wheezing rubs or rhonchi appreciated.) Cardiovascular: Regular Rate, Rhythm, No Edema, No Gallop, No JVD, No Murmur Extremity: Normal Capillary Refill, Normal Inspection, Normal Range of Motion, Non Tender, No Calf Tenderness, No Pedal Edema Results/Procedures Lab Laboratory Tests 07/14/18 03:37 Patient resulted labs reviewed. Assessment/Plan Assessment and Plan Assess & Plan/Chief Complaint 1. Acute on chronic systolic heart failure with underlying dilated nonischemic cardiomyopathy patient currently requiring BiPAP and is received an IV dose of bumetanide as well as Lasix per Dr. Musa continue to monitor. Chest x-ray reveals pulmonary vascular congestion there is atelectasis versus infiltrate in the right base. Patient has no symptoms at this time to suggest pneumonia but if her white count remains elevated or she has any other symptoms to suggest infection we will need to reconsider antibiotic therapy. Continue daily blood tests chest x-ray monitoring.. 2. Nonischemic dilated cardiomyopathy with reported ventricular tachycardia post ICD discharge complicated by paroxysmal atrial fibrillation management per Dr. Campos rate currently controlled being switched to oral therapy. 3. Recent history of acute kidney injury likely acute tubular necrosis from hypotension resolved. 4. Type II diabetes mellitus last several blood sugars of been right around 200 aggravated by stress number 1 we will increase basal insulin continue sliding scale regular for now. Critical Care Critical Care: Critically Ill Patient Clinical Quality Measures DVT/VTE Risk/Contraindication: Risk Factor Score Per Nursin RFS Level Per Nursing on Admit: 3=High SADA BAUGH MD Jul 14, 2018 11:32
[2018-07-15] VITALS (12 sets, daily range): BP systolic 91–149; BP diastolic 60–87
[2018-07-15 03:39] LABS: BASOPHILS % (AUTO) 0 % (0-10); EOSINOPHILS # (AUTO) 0.2 10^3/uL (0.0-0.3); EOSINOPHILS % (AUTO) 2 % (0-10); HEMATOCRIT 41 % (35-52); HEMOGLOBIN 13.1 G/DL (11.5-16.0); LYMPHOCYTES % (AUTO) 13 % (12-44); MEAN CORPUSCULAR HEMOGLOBIN 30 PG (25-34); MEAN CORPUSCULAR HGB CONC 32 G/DL (32-36); MEAN CORPUSCULAR VOLUME 93 FL (80-99); MEAN PLATELET VOLUME 11.4 FL (7.4-10.4); MONOCYTES # (AUTO) 0.6 X 10^3 (0.0-1.0); MONOCYTES % (AUTO) 7 % (0-12); NEUTROPHILS # (AUTO) 6.3 X 10^3 (1.8-7.8); NEUTROPHILS % (AUTO) 78 % (42-75); PLATELET COUNT 124 10^3/uL (130-400); RED BLOOD COUNT 4.44 10^6/uL (4.35-5.85); RED CELL DISTRIBUTION WIDTH 14.4 % (10.0-14.5); WHITE BLOOD COUNT 8.1 10^3/uL (4.3-11.0)
[2018-07-15 03:55] LABS: CALCIUM 9.4 MG/DL (8.5-10.1); CREATININE SERUM 1.02 MG/DL (0.60-1.30); MAGNESIUM 1.9 MG/DL (1.8-2.4); PHOSPHORUS 3.1 MG/DL (2.3-4.7); POTASSIUM 4.6 MMOL/L (3.6-5.0)
--- NOTE | 2018-07-15 05:19 | Pulmonary Progress Note ---
Subjective Time Seen by Provider: 05:17 Subjective/Events-last exam PT is doing better this AM. She is not requiring BiPAP now. Sepsis Event Evaluation Height, Weight, BMI Height: 5'1.00" Weight: 209lbs. 5.0oz. 94.431375zv; 37.8 BMI Method:Stated Focused Exam Lactate Level 07/14/18 06:27: Lactic Acid Level 1.27 Exam Exam Vital Signs Date Time Temp Pulse Resp B/P (MAP) Pulse Ox O2 Delivery O2 Flow Rate FiO2 07/15/18 05:00 69 13 91/87 (88) 94 High Flow N/C 4.00 07/15/18 04:00 92 High Flow N/C 4.00 07/15/18 04:00 66 27 116/65 (82) 95 High Flow N/C 4.00 07/15/18 03:00 60 13 121/65 (83) 94 High Flow N/C 4.00 07/15/18 02:00 61 11 128/65 (86) 94 High Flow N/C 4.00 07/15/18 01:00 61 14 120/60 (80) 95 High Flow N/C 4.00 07/15/18 00:00 63 07/15/18 00:00 92 High Flow N/C 4.00 07/15/18 00:00 97.1 63 12 129/65 (86) 95 High Flow N/C 4.00 07/14/18 23:00 60 14 119/56 (77) 95 High Flow N/C 4.00 07/14/18 22:00 65 9 118/60 (79) 94 High Flow N/C 4.00 07/14/18 21:00 63 15 121/61 (81) 93 High Flow N/C 4.00 07/14/18 20:00 97 High Flow N/C 4.00 07/14/18 20:00 96.9 60 15 137/72 (93) 99 High Flow N/C 4.00 07/14/18 19:00 60 16 122/82 (95) 96 High Flow N/C 4.00 07/14/18 19:00 60 07/14/18 18:00 60 14 137/73 (94) 97 High Flow N/C 4.00 07/14/18 17:30 High Flow N/C 4.00 07/14/18 17:00 60 15 118/65 (82) 99 High Flow N/C 6.00 07/14/18 16:29 97.5 07/14/18 16:00 60 22 105/86 (92) 98 High Flow N/C 6.00 07/14/18 15:32 High Flow N/C 6.00 07/14/18 15:00 60 14 135/80 (98) 97 High Flow N/C 6.00 07/14/18 14:00 60 22 123/98 (106) 95 High Flow N/C 6.00 07/14/18 13:00 60 20 151/73 (99) 93 High Flow N/C 6.00 07/14/18 13:00 60 07/14/18 12:16 98.2 07/14/18 12:00 High Flow N/C 6.00 07/14/18 12:00 60 14 142/78 (99) 95 High Flow N/C 6.00 07/14/18 11:00 61 18 103/83 (90) 91 High Flow N/C 6.00 07/14/18 10:59 High Flow N/C 6.00 07/14/18 10:56 High Flow N/C 5.00 07/14/18 10:23 NIV Bilevel 50.00 07/14/18 10:20 60 15 98 60.00 07/14/18 10:00 60 14 141/82 (101) 98 NIV Bilevel 60.00 07/14/18 09:00 60 14 134/77 (96) 95 NIV Bilevel 60.00 07/14/18 08:37 NIV Bilevel 60.00 07/14/18 08:37 97 NIV Bilevel 60 07/14/18 08:36 60 18 97 70.00 07/14/18 08:30 97.3 60 13 167/88 (114) 96 NIV Bilevel 70.00 07/14/18 08:00 60 14 156/90 (112) 95 NIV Bilevel 70.00 07/14/18 07:00 60 07/14/18 07:00 62 14 167/85 (112) 95 NIV Bilevel 70.00 07/14/18 06:45 60 16 96 NIV Bilevel 70.00 07/14/18 06:30 60 16 97 NIV Bilevel 70.00 07/14/18 06:20 60 16 96 70.00 07/14/18 06:15 60 14 156/78 (104) 94 NIV Bilevel 70.00 07/14/18 06:00 60 20 165/81 (109) 94 NIV Bilevel 70.00 07/14/18 05:45 72 18 156/83 (107) 93 NIV Bilevel 70.00 07/14/18 05:40 62 16 90 NIV Bilevel 70.00 07/14/18 05:30 64 16 165/91 (115) 91 NIV Bilevel 60.00 07/14/18 05:15 60 17 94 60.00 07/14/18 05:15 62 17 155/94 (114) 94 High Flow N/C 12.00 I & O 07/15/18 07:00 Intake Total 1605 ml Output Total 1885 ml Balance -280 ml Height & Weight Height: 5'1.00" Weight: 209lbs. 5.0oz. 94.437516cd; 37.8 BMI Method:Stated General Appearance: No Apparent Distress HEENT: PERRL/EOMI, TMs Normal, Normal ENT Inspection, Pharynx Normal Neck: Full Range of Motion, Normal Inspection, Non Tender, Supple, Carotid Bruit Respiratory: Chest Non Tender, No Accessory Muscle Use, No Respiratory Distress , Other (Rales the midlung magallon noted bilaterally no wheezing rubs or rhonchi appreciated.) Cardiovascular: Regular Rate, Rhythm, No Edema, No Gallop, No JVD, No Murmur Capillary Refill: Less Than 3 Seconds Extremity: Normal Capillary Refill, Normal Inspection, Normal Range of Motion, Non Tender, No Calf Tenderness, No Pedal Edema Neurologic/Psychiatric: Alert, Oriented x3, No Motor/Sensory Deficits, Normal Mood/Affect Skin: Normal Color, Warm/Dry Lymphatic: No Adenopathy Results Lab Laboratory Tests 07/14/18 03:37 07/15/18 03:28 Assessment/Plan Assessment/Plan Acute respiratory failure -Now on NC -Bumex -IVF are hep locked Cardiomyopathy with EF 20% with ICD/pacemaker - Cardiology is following Afib/V tach -Amio gtt is now off. CAD Hypothyroid -Synthroid JAMI CHANG DO Jul 15, 2018 05:19
[2018-07-15] MEDS: inSUlin ASPART (NovoLOG) 1 UNIT/0.01 ML (CHARGE PER UNIT) SC SCH ×4 (05:23→21:22)
[2018-07-15] MEDS: KCL 20 MEQ TAB (K-DUR) PO SCH (05:25)
[2018-07-15] MEDS: CATHETER FLUSH 10 ML SYR IV SCH ×3 (06:10→21:24)
[2018-07-15] MEDS: LEVOTHYROXINE 125 MCG (LEVOTHROID) TABLET PO SCH (06:10)
--- NOTE | 2018-07-15 07:34 | Progress Note-Hospitalist ---
Subjective HPI/CC On Admission Date Seen by Provider: Jul 15, 2018 Time Seen by Provider: 07:28 Mrs. Kebede is a pleasant 68-year-old white female with over 10 year history of type II diabetes mellitus who is feeling well up until she underwent defibrillator shock while walking the day of her admission. Should not been having any problems with chest discomfort shortness of breath or dyspnea on exertion prior. When she presented emergency room she was in a fibrillation with a rapid ventricular response. Her defibrillator was interrogated and she reportedly had runs of ventricular tachycardia. She's had a past history of paroxysmal fibrillation with nonischemic cardiomyopathy and a reported ejection fraction the 20 percent range. After her workup for heart failure which included negative heart catheter she underwent defibrillator placement at . She had an admission in February for acute kidney injury likely due to acute tubular necrosis from hypotension and severe hypoglycemia likely brought on by ongoing liver IV therapy in the face of renal failure. Since that admission she had been doing relatively well. She reports her diabetes has been under better control and they've actually cut back on her insulin as her last glycosylated hemoglobin was 5.3 percent. She missed last night's Levemir as well as this morning's Levemir and is only on additional Januvia 100 mg now. She denies any recent hypoglycemic symptoms or low blood sugar levels since her last admission toward the end of February. She denies numbness or pain in her feet and reports no past history of laser therapy for diabetic eye disease. This is questionable however as she states that they have seen some blood spots on the back of her eyes so she likely does have some background diabetic retinopathy. Subjective/Events-last exam Pt reports feeling much better. She is still on 4lpm NC and normally does not wear oxygen at home. No other complaints. Focused Exam Lactate Level 07/14/18 06:27: Lactic Acid Level 1.27 Objective Exam Vital Signs Vital Signs Date Time Temp Pulse Resp B/P (MAP) Pulse Ox O2 Delivery O2 Flow Rate FiO2 07/15/18 06:00 73 11 149/70 (96) 91 High Flow N/C 4.00 07/15/18 00:00 97.1 07/14/18 08:37 60 Capillary Refill : Less Than 3 Seconds General Appearance: No Apparent Distress, WD/WN Respiratory: Lungs Clear, No Respiratory Distress Cardiovascular: No Murmur, Irregularly Irregular Gastrointestinal: Normal Bowel Sounds, Non Tender, Soft Extremity: No Calf Tenderness, No Pedal Edema Neurologic/Psychiatric: Alert, Oriented x3 Results/Procedures Lab Laboratory Tests 07/15/18 03:28 Patient resulted labs reviewed. Assessment/Plan Assessment and Plan Assess & Plan/Chief Complaint a-fib with RVR Critical Care Critical Care: Critically Ill Patient Diagnosis/Problems Diagnosis/Problems (1) Acute respiratory failure Assessment & Plan: Improving Now only on nasal cannula Does not wear oxygen at baseline Will need home study prior to DC Qualifiers: Respiratory failure complication: hypoxia and hypercapnia Qualified Codes: J96.01 - Acute respiratory failure with hypoxia; J96.02 - Acute respiratory failure with hypercapnia (2) Atrial fibrillation with RVR Status: Chronic Assessment & Plan: Off gtts Continue on Coreg Interrogation showed V-tach as well Continue amio Monitor on Telemetry Management per cardiology (3) Diabetes mellitus Status: Chronic Assessment & Plan: Fasting BS 129 this AM Continue current regimen Qualifiers: Diabetes mellitus type: type 2 Diabetes mellitus custodial insulin use: with custodial use Diabetes mellitus complication status: with unspecified complications Qualified Codes: E11.8 - Type 2 diabetes mellitus with unspecified complications; Z79.4 - penitentiary (current) use of insulin (4) Hypothyroidism Status: Chronic Assessment & Plan: Continue current dose as TSH WNL Qualifiers: Hypothyroidism type: acquired Qualified Codes: E03.9 - Hypothyroidism, unspecified (5) Hypertension Status: Chronic Assessment & Plan: Continue current regimen as BP relatively well controlled Qualifiers: Hypertension type: essential hypertension Qualified Codes: I10 - Essential (primary) hypertension Clinical Quality Measures DVT/VTE Risk/Contraindication: Risk Factor Score Per Nursin RFS Level Per Nursing on Admit: 3=High HUGH BARFIELD MD Jul 15, 2018 7:34 am
--- NOTE | 2018-07-15 07:47 | Cardiology Progress Note ---
Subjective Date Seen by Provider: Jul 15, 2018 Time Seen by Provider: 07:46 Subjective/Events-last exam Patient is breathing better, feeling better, still on 4 L nasal cannula, trying to wean her off oxygen. Denied any chest pain Review of Systems General: No Chills, No Night Sweats, No Fatigue, No Malaise, No Appetite, No Other HEENT: No Head Aches, No Visual Changes, No Eye Pain, No Ear Pain, No Dysphasia , No Sinus Congestion, No Post Nasal Drip, No Sore Throat, No Other Pulmonary: Dyspnea; No Cough, No Pleuritic Chest Pain, No Other Cardiovascular: No: Chest Pain, Palpitations, Orthopnea, Paroxysmal Noc. Dyspnea, Edema, Lt Headedness, Other Focused Exam Lactate Level 07/14/18 06:27: Lactic Acid Level 1.27 Objective-Cardiology Exam Last Set of Vital Signs Vital Signs 07/14/18 07/15/18 07/15/18 08:37 00:00 06:00 Temp 97.1 Pulse 73 Resp 11 B/P (MAP) 149/70 (96) Pulse Ox 91 O2 Delivery High Flow N/C O2 Flow Rate 4.00 FiO2 60 Capillary Refill : Less Than 3 Seconds I&O Intake and Output 07/15/18 00:00 Intake Total 1480 ml Output Total 2010 ml Balance -530 ml Intake Oral 1480 ml Output Urine Total 2010 ml # Bowel Movements 2 General: Alert, Oriented X3, Cooperative, Moderate Distress HEENT: Atraumatic, PERRLA Neck: Supple, No JVD, No Thyromegaly Lungs: Normal Air Movement, Other (Bilateral rhonchi) Heart: Regular Rate, Normal S1, Normal S2, Other (Systolic murmur) Abdomen: Normal Bowel Sounds, Soft, No Tenderness, No Hepatosplenomegaly, No Masses Extremities: No Clubbing, No Cyanosis, Normal Pulses, No Tenderness/Swelling, Other (Mild edema) Skin: No Rashes, No Breakdown, No Significant Lesion Neuro: Normal Gait, Normal Speech, Strength at 5/5 X4 Ext, Normal Tone, Sensation Intact Psych/Mental Status: Mental Status NL, Mood NL Results Lab Laboratory Tests 07/15/18 03:28 A/P-Cardiology Admission Diagnosis Atrial fibrillation Ventricular tachycardia Congestive heart failure, chronic compensated left ventricular systolic dysfunction, nonischemic cardiomyopathy Hyperlipidemia Assessment/Plan Acute respiratory failure, improving, on 4 L nasal cannula at this time. Trying to wean her off oxygen, I'll give additional dose of Lasix Status post atrial fibrillation with rapid ventricular response, treated with Cardizem and amiodarone, back to atrial paced rhythm. Continue to monitor at this time. Ventricular tachycardia, patient received a shock from her defibrillator, given loading dose of amiodarone and started on amiodarone orally. History of ICD, send Rommel, interrogation was done in the emergency room, multiple episodes of atrial fibrillation, episodes of ventricular tachycardia, could be due to rapid ventricular response of the atrial fibrillation. Back to atrial paced rhythm Severe cardiomyopathy nonischemic, acute on chronic left ventricular systolic dysfunction, ejection fraction 20 percent, I discontinued lisinopril and planning to start Entresto tomorrow Diabetes mellitus, followed and managed by primary care physician Hypertension, history of hypotensive shock in March 2018 resistant to multiple medications, blood pressure is better at this time. Continue to monitor Hyperlipidemia, has been on simvastatin, I will discontinue simvastatin and start Crestor History of mild coronary artery disease per cardiac catheterization in March [address] Ramesh Status post renal failure. Improved. Continue to monitor renal function. Hypothyroidism, followed and managed by primary care physician. BMI is 39, we discussed weight loss. Clinical Quality Measures DVT/VTE Risk/Contraindication: Risk Factor Score Per Nursin RFS Level Per Nursing on Admit: 3=High MARY DAVENPORT MD Jul 15, 2018 07:47
[2018-07-15] MEDS ORDERED: FUROSEMIDE 40 MG/4 ML INJ (LASIX) IVP NR (08:10)
--- NOTE | 2018-07-15 08:40 | Diagnostic Imaging Report ---
INDICATION: Hypoxia. Frontal chest obtained at 3:58 a.m. and compared to 07/14/2018. FINDINGS: There is cardiomegaly with central vascular congestion unchanged compared to the prior study. Pacemaker is stable. There is some mild left basilar infiltrate versus atelectasis. There is no pneumothorax. IMPRESSION: Cardiomegaly with central vascular congestion is present unchanged compared to the prior study. There is some left basilar atelectatic change versus infiltrate. Pacemaker is stable. Dictated by: Dictated on workstation # [id number]
[2018-07-15] MEDS ORDERED: NON-FORMULARY MEDICATION 1 EA EA (Bumetanide 2 MG) PO SCH (09:00)
[2018-07-15] MEDS: APIXABAN 5 MG (ELIQUIS) TABLET PO SCH ×2 (09:04→21:22)
[2018-07-15] MEDS: inSUlin DETERMIR 1 UNIT/0.01 ML (LEVEMIR) CHARGE PER UNIT SQ SCH ×2 (09:04→21:24)
[2018-07-15] MEDS: CARVEDILOL 6.25 MG (COREG) TAB PO SCH ×2 (09:04→21:22)
[2018-07-15] MEDS: SPIRONOLACTONE 25 MG (ALDACTONE) TAB PO SCH (09:04)
[2018-07-15] MEDS: AMIODARONE 200 MG (CORDARONE) TAB PO SCH ×2 (09:04→21:22)
[2018-07-15] MEDS: BUMETANIDE 1 MG (BUMEX) TAB PO SCH (10:10)
[2018-07-15] MEDS ORDERED: ROSUVASTATIN 5 MG (CRESTOR) TABLET PO SCH (21:00)
[2018-07-15] MEDS: ACETAMINOPHEN 325 MG TABLET PO PRN (22:38)
[2018-07-16] VITALS: BP 128/60
[2018-07-16 04:10] VITALS: BP 130/79
[2018-07-16 04:42] LABS: BASOPHILS % (AUTO) 0 % (0-10); EOSINOPHILS # (AUTO) 0.2 10^3/uL (0.0-0.3); EOSINOPHILS % (AUTO) 3 % (0-10); HEMATOCRIT 40 % (35-52); HEMOGLOBIN 12.9 G/DL (11.5-16.0); LYMPHOCYTES # (AUTO) 1.2 X 10^3 (1.0-4.0); LYMPHOCYTES % (AUTO) 17 % (12-44); MEAN CORPUSCULAR HEMOGLOBIN 29 PG (25-34); MEAN CORPUSCULAR HGB CONC 32 G/DL (32-36); MEAN CORPUSCULAR VOLUME 92 FL (80-99); MEAN PLATELET VOLUME 10.9 FL (7.4-10.4); MONOCYTES # (AUTO) 0.5 X 10^3 (0.0-1.0); MONOCYTES % (AUTO) 7 % (0-12); NEUTROPHILS # (AUTO) 5.4 X 10^3 (1.8-7.8); NEUTROPHILS % (AUTO) 73 % (42-75); PLATELET COUNT 134 10^3/uL (130-400); RED CELL DISTRIBUTION WIDTH 14.5 % (10.0-14.5); WHITE BLOOD COUNT 7.4 10^3/uL (4.3-11.0)
[2018-07-16 05:01] LABS: MAGNESIUM 1.8 MG/DL (1.8-2.4); PHOSPHORUS 3.8 MG/DL (2.3-4.7)
[2018-07-16] MEDS: KCL 20 MEQ TAB (K-DUR) PO SCH (05:09)
[2018-07-16] MEDS: inSUlin ASPART (NovoLOG) 1 UNIT/0.01 ML (CHARGE PER UNIT) SC SCH ×3 (05:56→11:33)
[2018-07-16] MEDS: CATHETER FLUSH 10 ML SYR IV SCH ×2 (05:57→13:39)
[2018-07-16 06:01] LABS: ALANINE AMINOTRANSFERASE 17 U/L (0-55); ALBUMIN 3.8 GM/DL (3.2-4.5); ALKALINE PHOSPHATASE 44 U/L (40-136); BILIRUBIN,TOTAL 0.8 MG/DL (0.1-1.0); BUN/CREATININE RATIO 34; CALCIUM 9.4 MG/DL (8.5-10.1); CARBON DIOXIDE 27 MMOL/L (21-32); CHLORIDE 100 MMOL/L (98-107); CREATININE SERUM 0.85 MG/DL (0.60-1.30); GFR ESTIMATED > 60; GLUCOSE 121 MG/DL (70-105); POTASSIUM 3.9 MMOL/L (3.6-5.0); SODIUM 137 MMOL/L (135-145); TOTAL PROTEIN 6.3 GM/DL (6.4-8.2)
[2018-07-16] MEDS: LEVOTHYROXINE 125 MCG (LEVOTHROID) TABLET PO SCH (06:21)
--- NOTE | 2018-07-16 07:42 | Diagnostic Imaging Report ---
INDICATION: Hypoxia. History of atrial fibrillation. COMPARISON: 07/15/2018 FINDINGS: Single frontal radiographic view of the chest was obtained and demonstrates significant interval improved aeration of the left base. Lungs are otherwise clear. There is no large effusion or pneumothorax. Cardiac silhouette remain mildly prominent. Pulmonary vasculature, however, is within normal limits. Left-sided AICD is noted. Bony structures show no gross acute abnormalities. IMPRESSION: 1. Interval resolution of left basilar atelectasis 2. Mild cardiomegaly. No evidence of overt failure. Dictated by: Dictated on workstation # [id number]
[2018-07-16 08:00] VITALS: BP 147/73
[2018-07-16] MEDS: BUMETANIDE 1 MG (BUMEX) TAB PO SCH (08:20)
[2018-07-16] MEDS: SPIRONOLACTONE 25 MG (ALDACTONE) TAB PO SCH (08:20)
[2018-07-16] MEDS: CARVEDILOL 6.25 MG (COREG) TAB PO SCH (08:20)
[2018-07-16] MEDS: APIXABAN 5 MG (ELIQUIS) TABLET PO SCH (08:20)
[2018-07-16] MEDS: inSUlin DETERMIR 1 UNIT/0.01 ML (LEVEMIR) CHARGE PER UNIT SQ SCH (08:20)
[2018-07-16] MEDS: AMIODARONE 200 MG (CORDARONE) TAB PO SCH (08:20)
--- NOTE | 2018-07-16 09:14 | Cardiology Progress Note ---
Subjective Date Seen by Provider: Jul 16, 2018 Time Seen by Provider: 09:13 Subjective/Events-last exam Patient is feeling better, still on 1 L nasal cannula. Denied any chest pain, breathing better. Review of Systems General: No Chills, No Night Sweats, No Fatigue, No Malaise, No Appetite, No Other HEENT: No Head Aches, No Visual Changes, No Eye Pain, No Ear Pain, No Dysphasia , No Sinus Congestion, No Post Nasal Drip, No Sore Throat, No Other Pulmonary: Dyspnea; No Cough, No Pleuritic Chest Pain, No Other Cardiovascular: No: Chest Pain, Palpitations, Orthopnea, Paroxysmal Noc. Dyspnea, Edema, Lt Headedness, Other Focused Exam Lactate Level 07/14/18 06:27: Lactic Acid Level 1.27 Objective-Cardiology Exam Last Set of Vital Signs Vital Signs 07/14/18 07/16/18 07/16/18 08:37 04:10 07:00 Temp 97.1 Pulse 65 Resp 20 B/P (MAP) 130/79 (96) Pulse Ox 94 O2 Delivery High Flow N/C O2 Flow Rate 4.00 FiO2 60 Capillary Refill : Less Than 3 Seconds I&O Intake and Output 07/16/18 00:00 Intake Total 2530 ml Output Total 4100 ml Balance -1570 ml Intake Oral 2530 ml Output Urine Total 4100 ml General: Alert, Oriented X3, Cooperative, Moderate Distress HEENT: Atraumatic, PERRLA Neck: Supple, No JVD, No Thyromegaly Lungs: Normal Air Movement, Other (Bilateral rhonchi) Heart: Regular Rate, Normal S1, Normal S2, Other (Systolic murmur) Abdomen: Normal Bowel Sounds, Soft, No Tenderness, No Hepatosplenomegaly, No Masses Extremities: No Clubbing, No Cyanosis, Normal Pulses, No Tenderness/Swelling, Other (Mild edema) Skin: No Rashes, No Breakdown, No Significant Lesion Neuro: Normal Gait, Normal Speech, Strength at 5/5 X4 Ext, Normal Tone, Sensation Intact Psych/Mental Status: Mental Status NL, Mood NL Results Lab Laboratory Tests 07/16/18 04:25 A/P-Cardiology Admission Diagnosis Atrial fibrillation Ventricular tachycardia Congestive heart failure, chronic compensated left ventricular systolic dysfunction, nonischemic cardiomyopathy Hyperlipidemia Assessment/Plan Status post Acute respiratory failure, better at this time, trying to wean her off oxygen. Status post atrial fibrillation with rapid ventricular response, treated with Cardizem and amiodarone, back to atrial paced rhythm. I am decreasing amiodarone to 200 mg twice daily and continue to monitor Ventricular tachycardia, patient received a shock from her defibrillator, continue to monitor at this time History of ICD, send Rommel, interrogation was done in the emergency room, multiple episodes of atrial fibrillation, episodes of ventricular tachycardia, could be due to rapid ventricular response of the atrial fibrillation. Back to atrial paced rhythm Severe cardiomyopathy nonischemic, acute on chronic left ventricular systolic dysfunction, ejection fraction 20 percent, starting Entresto Diabetes mellitus, followed and managed by primary care physician Hypertension, history of hypotensive shock in March 2018 resistant to multiple medications, blood pressure is better at this time. Continue to monitor Hyperlipidemia, has been on simvastatin, I will discontinue simvastatin and start Crestor History of mild coronary artery disease per cardiac catheterization in March [address] Ramesh Status post renal failure. Improved. Continue to monitor renal function. Hypothyroidism, followed and managed by primary care physician. BMI is 39, we discussed weight loss. Clinical Quality Measures DVT/VTE Risk/Contraindication: Risk Factor Score Per Nursin RFS Level Per Nursing on Admit: 3=High MARY DAVENPORT MD Jul 16, 2018 09:14
[2018-07-16] MEDS ORDERED: SACUBITRIL/VALSARTAN 24/26 MG (ENTRESTO) TABLET PO SCH (09:15)
[2018-07-16] MEDS ORDERED: AMIO200T4 PO (09:46)
[2018-07-16] MEDS ORDERED: SPIR25TA5 PO (09:46)
[2018-07-16] MEDS ORDERED: ROSU5TAB12 PO (09:46)
[2018-07-16] MEDS ORDERED: SACU1TAB PO (09:46)
--- NOTE | 2018-07-16 10:01 | Discharge Summary-Hospitalist ---
Diagnosis/Chief Complaint Date of Admission Jul 12, 2018 at 18:23 Date of Discharge Discharge Date: Jul 16, 2018 Discharge Diagnosis (1) Acute respiratory failure Status: Resolved Assessment & Plan: Improving Does not wear oxygen at baseline Home study prior to DC revealed requirement (2) Atrial fibrillation with RVR Status: Chronic Assessment & Plan: Continue on Coreg Interrogation showed V-tach as well Continue amio orally Will follow up with Dr Ramesh on 07/22 Management per cardiology EF of 20%, started on Entresto (3) Diabetes mellitus Status: Chronic Assessment & Plan: Continue current regimen (4) Hypothyroidism Status: Chronic Assessment & Plan: Continue current dose as TSH WNL (5) Hypertension Status: Chronic Assessment & Plan: Continue current regimen as BP relatively well controlled Discharge Summary Procedures/Consulations Dr Wyatt- Cardiology Dr Guerra- Pulmonology Discharge Physical Exam Allergies: Coded Allergies: latex (Verified Allergy, Intermediate, HIVES, 04/13/09) Penicillins (Verified Allergy, Mild, "I GO TO SLEEP", 04/13/09) Vitals & I&Os Vital Signs Date Time Temp Pulse Resp B/P (MAP) Pulse Ox O2 Delivery O2 Flow Rate FiO2 07/16/18 16:06 07/16/18 13:00 59 07/16/18 12:00 98.3 20 95 High Flow N/C 2.00 07/14/18 08:37 60 General Appearance: Alert, Oriented X3 Respiratory: Clear to Auscultation Psych/Mental Status: Mental Status NL Hospital Course Pt was admitted after defibrillator fired while she was out for a walk and she was found to be in a-fib with RVR. She was admitted to the ICU on an amiodarone gtt and his AICD was interrogated and revealed runs of v-tach. She was transitioned to oral Amiodarone. She is to follow up with Dr Ramesh on 07/22. She also developed acute respiratory failure that required BiPAP and IV diuresis. She responded well and was quickly transitioned to nasal cannula. She underwent home oxygen testing and required 3lpm with exertion which was arranged prior to DC. Labs (last 24 hrs) Microbiology 07/14/18 Blood Culture - Preliminary, Resulted No growth 07/12/18 MRSA Screen - Final, Complete MRSA not isolated Patient resulted labs reviewed. Pending Labs Discussion & Recommendations Discharge Planning: >30 minutes discharge planning Discharge Home Medications: Active Scripts Active Spironolactone 25 Mg Tablet 25 Mg PO DAILY Entresto 24 mg-26 mg Tablet (Sacubitril/Valsartan) 1 Each Tablet 1 Tab PO BID Rosuvastatin Calcium 5 Mg Tablet 5 Mg PO HS Amiodarone HCl 200 Mg Tablet 200 Mg PO BID Eliquis (Apixaban) 5 Mg Tablet 5 Mg PO BID 30 Days Reported Carvedilol 6.25 Mg Tablet 6.25 Mg PO DAILY Bumetanide 2 Mg Tablet 2 Mg PO DAILY Iron 18 Mg Tablet 28 Mg PO DAILY Tylenol Arthritis (Acetaminophen) 650 Mg Tablet.er 650 Mg PO Q6H PRN Levemir Flextouch (Insulin Detemir) 100 Unit/1 Ml Insuln.pen 8 Units SC BID Januvia (Sitagliptin Phosphate) 100 Mg Tablet 100 Mg PO DAILY Metformin HCl 1,000 Mg Tablet 1,000 Mg PO BID WITH MEALS Levothyroxine Sodium 125 Mcg Tablet 125 Mcg PO DAILY Paroxetine HCl 40 Mg Tablet 40 Mg PO DAILY Instructions to patient/family Please see electronic discharge instructions given to patient. 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
--- NOTE | 2018-07-16 10:04 | Discharge Inst-Simple/Standard ---
Discharge Inst-Standard Discharge Medications New, Converted or Re-Newed RX: Transmitted to Pharmacy Patient Instructions/Follow Up Plan of Care/Instructions/FU: Please continue to take your medications as written. Please follow up with your doctor's as scheduled. Activity as Tolerated: Yes Discharge Diet: Low Sodium Diet, ADA Diet, Cardiac Diet Return to The Hospital For: Shortness of breath, palpitations, chest pain, AICD firing, if you feel your symptoms are getting worse. Planned Outpatient Orders/Ref. Pneu Vac Indicated: Yes HUGH BARFIELD MD Jul 16, 2018 10:04
[2018-07-16 12:00] VITALS: BP 135/67
[2018-07-16] MEDS ORDERED: AMIODARONE 200 MG (CORDARONE) TAB PO SCH (21:00)
--- NOTE | 2018-07-18 15:46 | Physician Query Clarification ---
PQ-CHF Specificity The medical record reflects the following clinical scenario: History/Risk Factors: CHF, cardiomyopathy Clinical Findings: CHF, acute on chronic systolic "dysfunction" Treatment: Entresto Question: Can you further specify the acuity &/or type of CHF per the clinical indicators above? Please document a response below PHYSICIAN RESPONSE Acuity: Acute on Chronic Type: Systolic In responding to this query, please exercise your independent professional judgment. The purpose of this communication is to more accurately reflect the complexity of your patients condition. The fact that a question is asked does not imply that any particular answer is desired or expected. Thank you for your timely response to this clarification. Requestors name: [ ] Phone # [ ] THIS PHYSICIAN QUERY FORM IS A PERMANENT PART OF THE MEDICAL RECORD FELICE MIRANDA Jul 18, 2018 15:45 HUGH BARFIELD MD Jul 30, 2018 13:06
[2018-07-25] MEDS ORDERED: ACET-2422 PO (10:03)
[2018-07-25] MEDS ORDERED: CARV12.53 PO (10:05)
[2018-07-25] MEDS ORDERED: AMIO200T4 PO (10:05)
[2018-07-25] MEDS ORDERED: SACU1TAB PO (10:06)
[2018-07-25] MEDS ORDERED: SPIR25TA5 PO (10:06)
[2018-07-25] MEDS ORDERED: APIX5TAB PO (10:07)
[2018-07-25] MEDS ORDERED: MAGN400C PO (10:07)
[2018-07-25] MEDS ORDERED: OMG1KC PO (10:08)
[2018-07-25] MEDS ORDERED: CHOL100045 PO (10:08)
[2018-07-25] MEDS ORDERED: SIMV20TA3 PO (10:08)
[2018-07-25] MEDS ORDERED: LISI-556 PO (10:09)
[2018-07-25] MEDS ORDERED: ASPI-999 PO (10:09)
[2018-07-25] MEDS ORDERED: ROSU5TAB12 PO (10:10)
== END 2018-07-16 15:53 | disposition home or self-care (01) | DRG 308 ==
LOC: EDUNIT# 17:31 → ER 17:32 → ICU 18:23 → 4TH 07-15 11:09
PROVIDERS: ADMIT Internal Medicine Cardiovascular Disease; ATTEND Internal Medicine Cardiovascular Disease
DX: I48.0 Paroxysmal atrial fibrillation (principal); I47.2 Ventricular tachycardia; I11.0 Hypertensive heart disease with heart failure; I50.23 Acute on chronic systolic (congestive) heart failure; J96.01 Acute respiratory failure with hypoxia; J96.02 Acute respiratory failure with hypercapnia; E87.2 Acidosis; I42.0 Dilated cardiomyopathy; E11.319 Type 2 diabetes mellitus with unspecified diabetic retinopathy without macular edema; E78.00 Pure hypercholesterolemia, unspecified; I25.10 Atherosclerotic heart disease of native coronary artery without angina pectoris; E03.9 Hypothyroidism, unspecified; F32.9 Major depressive disorder, single episode, unspecified; K76.9 Liver disease, unspecified; M19.91 Primary osteoarthritis, unspecified site; Z95.810 Presence of automatic (implantable) cardiac defibrillator; Z87.891 Personal history of nicotine dependence; Z79.4 Long term (current) use of insulin; Z68.39 Body mass index [BMI] 39.0-39.9, adult
CPT/HCPCS: 36415; 36600; 71045; 80048; 80053; 81000; 82805; 82962; 83605; 83735; 83880; 84100; 84443; 84484; 85025; 85027; 87040; 87081; 93005; 93306; 94660; 94760; 94761; 96372; 96374

== ENCOUNTER → 2018-08-14 | Outpatient (CLI) | payer BC ==
[~2018-08-14] MED LIST changes: +ACET-2422 PO; +ASPI-999 PO; +BUME2TAB3 PO; +CARV12.53 PO; +CARV6.252 PO; +CHOL100045 PO; +IRON18TA PO; +LISI-556 PO; +MAGN400C PO; +OMG1KC PO; +ROSU5TAB12 PO; +RT-ALBUTEROL SULF 2.5 MG/3 ML PRE-MIX VIAL INH ONE; +SACU1TAB PO; +SIMV20TA3 PO
--- NOTE | 2018-08-14 14:23 | Diagnostic Imaging Report ---
PROCEDURE: CT chest without contrast. TECHNIQUE: Multiple contiguous axial images were obtained through the chest without the use of intravenous contrast. INDICATION: Dyspnea and atrial fibrillation. COMPARISON: No prior CT studies of the chest are available for comparison. FINDINGS: Left chest wall cardiac pacemaker is in place. No axillary lymphadenopathy is seen. Mediastinal and hilar evaluation is limited without intravenous contrast, but there is a paratracheal lymph node with short axis measurement of 9 mm. There are coronary arterial calcifications present. No pleural fluid is seen. There is a juerc-et-ftagtlur pericardial effusion. The central airways are patent. There is a micronodule in superior segment left lower lobe, image 23 measuring 2 mm. There is some atelectasis or infiltrate in the right middle lobe and right lower lobe. No other nodules or masses are seen. The upper abdomen is unremarkable. IMPRESSION: 1. Pericardial effusion. 2. Right middle lobe and right lower lobe infiltrate/atelectasis. In addition, there is a micronodule in the left lower lobe. No other significant abnormality is seen. Dictated by: Dictated on workstation # [id number]
== END ==
LOC: RT 12:37
PROVIDERS: ATTEND Nurse Practitioner Family
DX: J30.9 Allergic rhinitis, unspecified (principal); J98.11 Atelectasis; R06.00 Dyspnea, unspecified; I48.91 Unspecified atrial fibrillation; I42.8 Other cardiomyopathies; Z87.891 Personal history of nicotine dependence
CPT/HCPCS: 71250; 94060; 94640; 94726; 94729

== ENCOUNTER → 2018-10-07 | Outpatient (CLI) | payer BC ==
[~2018-10-07] MED LIST changes: -RT-ALBUTEROL SULF 2.5 MG/3 ML PRE-MIX VIAL INH ONE
--- NOTE | 2018-10-07 10:26 | Diagnostic Imaging Report ---
PROCEDURE: CT chest without contrast. TECHNIQUE: Multiple contiguous axial images were obtained through the chest without the use of intravenous contrast. INDICATION: Restrictive lung disease. Comparison is made with prior CT from 08/14/2018. A left chest wall cardiac pacemaker again noted. Previously noted right paratracheal lymph node is again noted and demonstrates a short axis measurement of 9 mm, unchanged from prior. No other abnormality in the mediastinum or sandhya is seen. There are coronary arterial calcifications detected. The axillae are unremarkable. A small pericardial effusion is noted. No pleural effusion is detected. Tiny nodule superior segment left lower lobe is stable at 2 mm. Minimal atelectasis in lingula is unchanged. Upper abdomen is unremarkable. IMPRESSION: Stable noncontrast CT chest when compared to examination from 08/14/2018. Dictated by: Dictated on workstation # [id number]
== END ==
LOC: RAD 09:25
PROVIDERS: ATTEND Nurse Practitioner Family
DX: J98.4 Other disorders of lung (principal); R91.8 Other nonspecific abnormal finding of lung field
CPT/HCPCS: 71250

== ENCOUNTER → 2018-10-14 | Outpatient (CLI) | payer BC | LOC: CARD 10:18 | PROVIDERS: ATTEND Internal Medicine Interventional Cardiology | DX: I51.9 Heart disease, unspecified (principal) | CPT/HCPCS: 93306 ==

== ENCOUNTER 2018-12-23 20:39 | Outpatient (CLI) | payer BC | END 2018-12-24 07:08 | disposition home or self-care (01) | LOC: SLEEP 20:39 | PROVIDERS: ATTEND Nurse Practitioner Family | DX: G47.10 Hypersomnia, unspecified (principal); G47.30 Sleep apnea, unspecified; I42.8 Other cardiomyopathies; J98.11 Atelectasis; I51.9 Heart disease, unspecified; J98.4 Other disorders of lung; J30.9 Allergic rhinitis, unspecified; I48.91 Unspecified atrial fibrillation; J96.20 Acute and chronic respiratory failure, unspecified whether with hypoxia or hypercapnia; Z87.891 Personal history of nicotine dependence | CPT/HCPCS: 95810 ==

== ENCOUNTER → 2019-02-20 | Outpatient (CLI) | payer BC ==
--- NOTE | 2019-02-20 18:57 | Diagnostic Imaging Report ---
INDICATION: Routine screening. COMPARISON: Comparison is made with prior mammograms from 02/19/2018 and 01/04/2017. TECHNIQUE: 2D and 3D bilateral screening mammography was performed with computer-aided detection (CAD) system. FINDINGS: Scattered fibroglandular densities are identified bilaterally. There are benign calcifications bilaterally. No dominant mass or malignant appearing microcalcifications are seen. The axillae are unremarkable apart from pacemaker battery pack in the left axilla. IMPRESSION: No mammographic features suspicious for malignancy are identified. ACR BI-RADS Category 2: Benign findings. Result letter will be mailed to the patient. Note: At least 10% of breast cancer is not imaged by mammography. Dictated by: Dictated on workstation # [id number]
== END ==
LOC: RAD 11:21
PROVIDERS: ATTEND Obstetrics & Gynecology
DX: Z12.31 Encounter for screening mammogram for malignant neoplasm of breast (principal)
CPT/HCPCS: 77067

== ENCOUNTER → 2019-04-03 | Outpatient (CLI) | payer BC ==
--- NOTE | 2019-04-03 17:34 | Diagnostic Imaging Report ---
PROCEDURE: CT chest without contrast. TECHNIQUE: Multiple contiguous axial images were obtained through the chest without the use of intravenous contrast. Auto Exposure Controls were utilized during the CT exam to meet ALARA standards for radiation dose reduction. INDICATION: Restrictive lung disease, cardiomyopathy. COMPARISON: October 07, 2018 and August 14, 2018. FINDINGS: Pacemaker is present with the battery pack overlying the left chest. No pathologically enlarged lymph nodes within the chest, though examination is slightly limited secondary to lack of intravenous contrast. No aneurysmal dilatation of the thoracic aorta. The heart is within normal limits in size. No significant pericardial effusion. No pleural effusion. No pneumothorax. 2 mm pulmonary nodule within the left lower lobe is again identified and stable. Additional 3 mm subpleural pulmonary nodule within the left lower lobe is present, appearing new from the prior examination. New mild reticular opacities are present within the medial aspect of the left lower lobe. New 4 mm ground-glass pulmonary nodule within the left lower lobe, series 3, image 26. New 0.5 cm subpleural pulmonary nodule within the left lower lobe, series 3, image 30. Minimal reticular interstitial opacities are identified within the peripheral right upper lobe, series 3, image 7, new from the prior examination. 3 mm subpleural ground-glass pulmonary nodule within the peripheral right upper lobe, series 3, image 9, new from the prior exam. New reticular and ground-glass opacities within the azygoesophageal recess. Cholecystectomy. The visualized upper abdomen is otherwise unremarkable. Scattered osseous degenerative changes without acute osseous abnormality. IMPRESSION: A few 4 mm and smaller bilateral pulmonary nodules have developed since the prior examination. This is nonspecific, though followup is recommended with additional imaging in six months. New reticular and ground-glass opacities, particularly within the azygoesophageal recess, peripheral right upper lobe, and medial left lower lobe. This is favored to relate to new regions of atelectasis and/or pneumonitis. Additional stable findings as above. Dictated by: Dictated on workstation # [id number]
== END ==
LOC: RAD 14:36
PROVIDERS: ATTEND Nurse Practitioner Family
DX: J96.20 Acute and chronic respiratory failure, unspecified whether with hypoxia or hypercapnia (principal); J98.11 Atelectasis; I42.8 Other cardiomyopathies; I48.91 Unspecified atrial fibrillation; J30.9 Allergic rhinitis, unspecified; I51.9 Heart disease, unspecified; R91.8 Other nonspecific abnormal finding of lung field; Z95.0 Presence of cardiac pacemaker; Z87.891 Personal history of nicotine dependence
CPT/HCPCS: 71250

== ENCOUNTER → 2019-07-30 | Outpatient (CLI) | payer BC ==
[~2019-07-30] MED LIST changes: -BUME1TAB4 PO; +BUME1TAB8 PO; -BUME2TAB3 PO; +BUME2TAB7 PO; -ROSU5TAB12 PO; +ROSU5TAB13 PO; +RT-ALBUTEROL SULF 2.5 MG/3 ML PRE-MIX VIAL INH ONE
== END ==
LOC: RT 09:05
PROVIDERS: ATTEND Nurse Practitioner Family
DX: J96.20 Acute and chronic respiratory failure, unspecified whether with hypoxia or hypercapnia (principal); J30.9 Allergic rhinitis, unspecified; J98.4 Other disorders of lung; I42.8 Other cardiomyopathies; J98.11 Atelectasis; I48.91 Unspecified atrial fibrillation; Z87.891 Personal history of nicotine dependence
CPT/HCPCS: 94060; 94726; 94729

== ENCOUNTER → 2019-09-30 | Outpatient (CLI) | payer BC ==
[~2019-09-30] MED LIST changes: -RT-ALBUTEROL SULF 2.5 MG/3 ML PRE-MIX VIAL INH ONE
[2019-09-30 11:06] LABS: CREATININE SERUM 1.67 MG/DL (0.60-1.30)
--- NOTE | 2019-09-30 11:32 | Diagnostic Imaging Report ---
PROCEDURE: CT chest without contrast. TECHNIQUE: Multiple contiguous axial images were obtained through the chest without the use of intravenous contrast. Auto Exposure Controls were utilized during the CT exam to meet ALARA standards for radiation dose reduction. INDICATION: Acute respiratory failure with dyspnea. Allergic rhinitis. Cardiomyopathy. FINDINGS: There are no discrete pulmonary nodules, masses or infiltrates. There is no pleural or pericardial fluid. There is no pneumothorax. The heart size is normal. Thoracic aorta is normal in caliber. There are coronary artery calcifications. There is no pathologically enlarged adenopathy in the chest. The visualized intra-abdominal structures are unremarkable. There are degenerative changes in the spine. IMPRESSION: No acute cardiopulmonary abnormality. Coronary artery calcification. Degenerative changes in the spine. Dictated by: Dictated on workstation # [id number]
== END ==
LOC: RAD 10:39
PROVIDERS: ATTEND Nurse Practitioner Family
DX: J96.20 Acute and chronic respiratory failure, unspecified whether with hypoxia or hypercapnia (principal); I25.10 Atherosclerotic heart disease of native coronary artery without angina pectoris; M47.819 Spondylosis without myelopathy or radiculopathy, site unspecified; I51.7 Cardiomegaly; J30.9 Allergic rhinitis, unspecified; J98.11 Atelectasis; Z87.891 Personal history of nicotine dependence
CPT/HCPCS: 36415; 71250; 82565; 84520

== ENCOUNTER 2020-01-12 05:47 | Outpatient (CLI) | payer BC ==
[~2020-01-12] VITALS: Ht 160 cm; Wt 103.0 kg
[~2020-01-12 05:47] MED LIST changes: -GLIM2TAB PO; +GLIM2TAB2 PO; -METO-387 PO; +MTP25TSR PO; -SACU1TAB PO; +SACU1TAB2 PO; +SIMV20TA26 PO; -SIMV20TA3 PO; +SIMV40TA25 PO; -SIMV40TA4 PO
[2020-01-12] MEDS ORDERED: INSU100I48 SQ (15:19)
[2020-01-12] MEDS ORDERED: LEVO5TAB12 PO (15:19)
[2020-01-12] MEDS ORDERED: INSU100V37 SQ (15:19)
[2020-01-12] MEDS ORDERED: MONT10TA24 PO (15:19)
[2020-01-12] MEDS ORDERED: SEMA0.25 SQ (15:19)
[2020-01-12] MEDS ORDERED: FERR-84 PO (15:19)
[2020-01-12] MEDS ORDERED: CHOL10007 PO (15:19)
== END 2020-01-12 15:26 | disposition home or self-care (01) ==
LOC: PREOP 05:47
PROVIDERS: ATTEND Specialist
DX: Z01.818 Encounter for other preprocedural examination (principal)

== ENCOUNTER 2020-01-16 06:25 | Day surgery (SDC) | payer BC ==
[~2020-01-16] VITALS: Ht 160 cm; Wt 103.0 kg
[~2020-01-16 06:25] MED LIST changes: +CHOL10007 PO; +FERR-84 PO; -GLIM2TAB2 PO; +GLIM2TAB4 PO; +INSU100I48 SQ; +INSU100V37 SQ; +LEVO5TAB12 PO; +MONT10TA26 PO; +SEMA0.25 SQ
[2020-01-16 06:44] VITALS: BP 132/72
[2020-01-16] MEDS ORDERED: LIDOCAINE PF 1% 2 ML VIAL IR PRN (06:45)
[2020-01-16] MEDS ORDERED: TIMOLOL MALEATE 0.5% 5 ML (TIMOPTIC) BTL OU PRN (06:45)
[2020-01-16] MEDS ORDERED: MOXIFLOXACIN OPHTH SOLN 5 MG/ML 0.3 ML SYRINGE OP ONE (06:45)
[2020-01-16] MEDS ORDERED: POVIDONE (BETADINE) OPHTH SOLN 5% 30 ML OP ONE (06:45)
[2020-01-16] MEDS: TETRACAINE 0.5% OPHTH SOLN 4 ML BTL (SINGLE DOSE ONLY) OU PRN ×4 (06:47→07:12)
[2020-01-16] MEDS: PHENYLEPHRINE 10% OPHTH (NEO-SYN) 5 ML BTL OU SCH ×3 (07:02→07:12)
[2020-01-16] MEDS: CYCLOPENTOLATE 1% (CYCLOGYL) 2 ML DROPS OP SCH ×3 (07:02→07:12)
--- NOTE | 2020-01-16 07:57 | Ophthalmologist Pre-Op Note ---
Pre-Operative Progress Note H&P Reviewed The H&P was reviewed, patient examined and no changes noted. Date H&P Reviewed: Jan 16, 2020 Time H&P Reviewed: 07:57 Pre-Op Dx Cataract, Right Eye LYNDA MIRANDA MD Jan 16, 2020 07:57
[2020-01-16] MEDS ORDERED: MIDAZOLAM 2 MG/2 ML (VERSED) VIAL ONE (07:59)
[2020-01-16] MEDS ORDERED: acetaZOLAMIDE ER 500 MG CAP (DIAMOX SEQUELS) PO ONE (08:00)
--- NOTE | 2020-01-16 08:23 | Ophthalmology Operative Report ---
Cataract removal/placement IOL PREOPERATIVE DIAGNOSIS: Cataract Right Eye POSTOPERATIVE DIAGNOSIS: Cataract Right Eye PROCEDURE: Cataract removal and placement of posterior chamber implant, right eye SURGEON: Britton Miranda ANESTHESIA: Topical with sedation COMPLICATIONS: None ESTIMATED BLOOD LOSS: Minimal DESCRIPTION OF PROCEDURE: After proper informed consent was obtained, the patient, a 69 female, was taken to the Operating Room and the right eye was anesthetized with tetracaine. The right eye was then prepped and draped in the usual manner. A wire lid speculum was placed. A paracentesis was made at the left hand position. Preservative free lidocaine was injected into the anterior chamber followed by viscoelastic. A clear corneal incision was made in the temporal position. A capsulorrhexis was preformed and the central nuclear and cortical material were removed. The posterior capsule was polished and Cuco 18.5 AU00T0 IOL was placed into the capsular bag. The residual viscoelastic was aspirated and balanced saline solution was injected into the anterior chamber. Moxifloxacin was injected into the anterior chamber. The wound was checked and found to be water tight. The patient tolerated the procedure well without complications. BRITTON MIRANDA MD Jan 16, 2020 08:23
[2020-01-16 08:35] VITALS: BP 159/73
== END 2020-01-16 08:35 | disposition home or self-care (01) ==
LOC: SDC 06:25
PROVIDERS: ATTEND Specialist
DX: E11.36 Type 2 diabetes mellitus with diabetic cataract (principal); H25.11 Age-related nuclear cataract, right eye; E78.5 Hyperlipidemia, unspecified; E66.9 Obesity, unspecified; E03.9 Hypothyroidism, unspecified; E78.00 Pure hypercholesterolemia, unspecified; G47.33 Obstructive sleep apnea (adult) (pediatric); M19.90 Unspecified osteoarthritis, unspecified site; I11.9 Hypertensive heart disease without heart failure; F32.9 Major depressive disorder, single episode, unspecified; Z88.0 Allergy status to penicillin; Z91.040 Latex allergy status; Z99.89 Dependence on other enabling machines and devices; Z68.41 Body mass index [BMI] 40.0-44.9, adult; Z79.899 Other long term (current) drug therapy; Z79.01 Long term (current) use of anticoagulants; Z90.710 Acquired absence of both cervix and uterus; Z87.891 Personal history of nicotine dependence
CPT/HCPCS: 82962

== ENCOUNTER 2020-01-23 06:55 | Day surgery (SDC) | payer BC ==
[~2020-01-23] VITALS: Ht 157.5 cm; Wt 103.0 kg
[2020-01-23] MEDS ORDERED: TIMOLOL MALEATE 0.5% 5 ML (TIMOPTIC) BTL OU PRN (07:00)
[2020-01-23] MEDS ORDERED: POVIDONE (BETADINE) OPHTH SOLN 5% 30 ML OP ONE (07:00)
[2020-01-23] MEDS ORDERED: LIDOCAINE PF 1% 2 ML VIAL IR PRN (07:00)
[2020-01-23] MEDS ORDERED: MOXIFLOXACIN OPHTH SOLN 5 MG/ML 0.3 ML SYRINGE OP ONE (07:00)
[2020-01-23 07:08] VITALS: BP 127/54
[2020-01-23] MEDS: TETRACAINE 0.5% OPHTH SOLN 4 ML BTL (SINGLE DOSE ONLY) OU PRN ×4 (07:08→07:34)
[2020-01-23] MEDS: CYCLOPENTOLATE 1% (CYCLOGYL) 2 ML DROPS OP SCH ×3 (07:24→07:34)
[2020-01-23] MEDS: PHENYLEPHRINE 10% OPHTH (NEO-SYN) 5 ML BTL OU SCH ×3 (07:24→07:34)
--- NOTE | 2020-01-23 07:43 | Ophthalmologist Pre-Op Note ---
Pre-Operative Progress Note H&P Reviewed The H&P was reviewed, patient examined and no changes noted. Date H&P Reviewed: Jan 23, 2020 Time H&P Reviewed: 07:42 Pre-Op Dx Cataract, Left Eye LYNDA MIRANDA MD Jan 23, 2020 07:43
[2020-01-23] MEDS ORDERED: MIDAZOLAM 2 MG/2 ML (VERSED) VIAL ONE (07:53)
[2020-01-23] MEDS ORDERED: acetaZOLAMIDE ER 500 MG CAP (DIAMOX SEQUELS) PO ONE (08:00)
--- NOTE | 2020-01-23 08:08 | Ophthalmology Operative Report ---
Cataract removal/placement IOL PREOPERATIVE DIAGNOSIS: Cataract Left Eye POSTOPERATIVE DIAGNOSIS: Cataract Left Eye PROCEDURE: Cataract removal and placement of posterior chamber implant, left eye SURGEON: Britton Miranda ANESTHESIA: Topical with sedation COMPLICATIONS: None ESTIMATED BLOOD LOSS: Minimal DESCRIPTION OF PROCEDURE: After proper informed consent was obtained, the patient, a 69 female, was taken to the Operating Room and the left eye was anesthetized with tetracaine. The left eye was then prepped and draped in the usual manner. A wire lid speculum was placed. A paracentesis was made at the left hand position. Preservative free lidocaine was injected into the anterior chamber followed by viscoelastic. A clear corneal incision was made in the temporal position. A capsulorrhexis was preformed and the central nuclear and cortical material were removed. The posterior capsule was polished and an Cuco 18.0 AU00T0 was placed into the capsular bag. The residual viscoelastic was aspirated and balanced saline solution was injected into the anterior chamber. Moxifloxacin was injected into the anterior chamber. The wound was checked and found to be water tight. The patient tolerated the procedure well without complications. BRITTON MIRANDA MD Jan 23, 2020 08:08
[2020-01-23 08:15] VITALS: BP 160/94
--- NOTE | 2020-01-23 11:31 | Anesthesia-General Post-Op ---
MAC Patient Condition Mental Status/LOC: Same as Preop Cardiovascular: Satisfactory Nausea/Vomiting: Absent Respiratory: Satisfactory Pain: Controlled Complications: Absent Post Op Complications Complications None Follow Up Care/Instructions Patient Instructions None needed. Anesthesiology Discharge Order Discharge Order Patient was seen after the procedure this morning and she was doing well, no complaints, stable vital signs, no apparent adverse anesthesia problems. TOBY OSPINA DO Jan 23, 2020 11:31
== END 2020-01-23 08:15 | disposition home or self-care (01) ==
LOC: SDC 06:55
PROVIDERS: ATTEND Specialist
DX: E11.36 Type 2 diabetes mellitus with diabetic cataract (principal); H25.12 Age-related nuclear cataract, left eye; E03.9 Hypothyroidism, unspecified; E66.01 Morbid (severe) obesity due to excess calories; E78.00 Pure hypercholesterolemia, unspecified; M19.90 Unspecified osteoarthritis, unspecified site; I11.9 Hypertensive heart disease without heart failure; G47.33 Obstructive sleep apnea (adult) (pediatric); F32.9 Major depressive disorder, single episode, unspecified; Z68.41 Body mass index [BMI] 40.0-44.9, adult; Z99.89 Dependence on other enabling machines and devices; Z90.710 Acquired absence of both cervix and uterus; Z88.0 Allergy status to penicillin; Z91.040 Latex allergy status; Z87.891 Personal history of nicotine dependence

== ENCOUNTER → 2020-03-31 | Outpatient (CLI) | payer BC ==
--- NOTE | 2020-03-31 12:07 | Diagnostic Imaging Report ---
EXAMINATION: Digital mammogram bilateral screening with CAD. INDICATION: Screening. COMPARISON: This study was compared to the prior exams of 02/20/2019, 02/19/2018, and 01/04/2017. PERSONAL HISTORY: At this time, there are no current complaints. FINDINGS: There are scattered fibroglandular densities in both breasts which could obscure a lesion. In the far medial aspect of the right breast approximately 18 cm from the nipple, there is a small 5 mm fairly well-defined nodular density. This finding has a generally benign appearance but has increased in size since the previous study. This may represent a lymph node. I would recommend that ultrasound be performed for further evaluation. The overall appearance of the breasts has not changed significantly otherwise. There is no primary or secondary sign of malignancy identified. The left-sided pacemaker seen previously is again evident. IMPRESSION: Ultrasound would be recommended for further evaluation of the nodular density in the far medial aspect of the right breast. ACR BI-RADS Category 0: Incomplete. (Needs additional imaging evaluation). Result letter will be mailed to the patient. Note: At least 10% of breast cancer is not imaged by mammography. Dictated by: Dictated on workstation # [id number]
== END ==
LOC: RAD 09:19
PROVIDERS: ATTEND Obstetrics & Gynecology
DX: Z12.31 Encounter for screening mammogram for malignant neoplasm of breast (principal); R92.8 Other abnormal and inconclusive findings on diagnostic imaging of breast; Z95.0 Presence of cardiac pacemaker
CPT/HCPCS: 77063; 77067

== ENCOUNTER → 2020-04-08 | Outpatient (CLI) | payer BC, MEDICARE ==
--- NOTE | 2020-04-08 20:36 | Diagnostic Imaging Report ---
INDICATION: Right breast density. COMPARISON: Correlation is made with the recent screening mammogram from 03/31/2020. EXAMINATION: Sonographic interrogation of the medial right breast was performed. FINDINGS: No sonographic abnormality is seen. No solid or cystic mass is detected. IMPRESSION: No sonographic abnormality is seen. The density noted mammographically is fairly well-circumscribed and has benign features. Even so, follow-up right mammogram in six months is recommended to show continued stability. ACR BI-RADS Category 3: Probably benign findings. Result letter will be mailed to the patient. Note: At least 10% of breast cancer is not imaged by mammography. Dictated by: Dictated on workstation # [id number]
== END ==
LOC: RAD 13:26
PROVIDERS: ATTEND Obstetrics & Gynecology
DX: R92.2 Inconclusive mammogram (principal)

== ENCOUNTER → 2021-03-18 | Outpatient (CLI) | payer BC ==
[~2021-03-18] MED LIST changes: -AMIO200T4 PO; +AMIO200T6 PO; +ASPI-1238 PO; -ASPI-983 PO; -HYDR50TA3 PO; +HYDR50TA6 PO; -LISI-556 PO; +LISI-729 PO; -LISI10TA2 PO; +LISI10TA25 PO; -MONT10TA26 PO; +MONT10TA32 PO
== END ==
LOC: CARD 14:13
PROVIDERS: ATTEND Internal Medicine Cardiovascular Disease
DX: I35.1 Nonrheumatic aortic (valve) insufficiency (principal); I35.8 Other nonrheumatic aortic valve disorders; I10 Essential (primary) hypertension
CPT/HCPCS: 93306

== ENCOUNTER 2021-11-20 17:53 | Inpatient (IN) | payer BC, MEDICARE ==
[~2021-11-20] VITALS: Ht 157 cm; Wt 106.1 kg
[~2021-11-20 17:53] MED LIST changes: -AMIO200T6 PO; +AMIO200T65 PO; +INSU100I48 SC; -INSU100I48 SQ; -LISI-729 PO; +LISI5TAB20 PO; +MONT-40 PO; -MONT10TA32 PO; +POTA-169 PO; -POTA20TA8 PO
[2021-11-20] MEDS ORDERED: dilTIAZem DRIP PRE-MIX 125 ML IV SCH (18:15)
[2021-11-20 18:25] LABS: BASOPHILS % (AUTO) 1 % (0-10); EOSINOPHILS # (AUTO) 0.2 10^3/uL (0.0-0.3); EOSINOPHILS % (AUTO) 3 % (0-10); HEMATOCRIT 47 % (35-52); HEMOGLOBIN 14.7 g/dL (11.5-16.0); LYMPHOCYTES # (AUTO) 1.3 10^3/uL (1.0-4.0); LYMPHOCYTES % (AUTO) 18 % (12-44); MEAN CORPUSCULAR HEMOGLOBIN 30 pg (25-34); MEAN CORPUSCULAR HGB CONC 31 g/dL (32-36); MEAN CORPUSCULAR VOLUME 96 fL (80-99); MEAN PLATELET VOLUME 11.7 fL (9.0-12.2); MONOCYTES # (AUTO) 0.4 10^3/uL (0.0-1.0); MONOCYTES % (AUTO) 5 % (0-12); NEUTROPHILS # (AUTO) 5.4 10^3/uL (1.8-7.8); NEUTROPHILS % (AUTO) 73 % (42-75); PLATELET COUNT 154 10^3/uL (130-400); WHITE BLOOD COUNT 7.4 10^3/uL (4.3-11.0)
[2021-11-20 18:34] LABS: INR 1.2 (0.8-1.4); PROTHROMBIN TIME PATIENT 15.7 SEC (12.2-14.7)
[2021-11-20 18:53] LABS: ALBUMIN 4.1 GM/DL (3.2-4.5); CHLORIDE 104 MMOL/L (98-107); POTASSIUM 4.2 MMOL/L (3.6-5.0); SODIUM 140 MMOL/L (135-145)
[2021-11-20 18:54] LABS: CALCIUM 9.3 MG/DL (8.5-10.1)
[2021-11-20 18:55] LABS: GLUCOSE 141 MG/DL (70-105); TOTAL PROTEIN 7.1 GM/DL (6.4-8.2)
[2021-11-20 18:56] LABS: CARBON DIOXIDE 24 MMOL/L (21-32)
[2021-11-20 18:57] LABS: BILIRUBIN,TOTAL 0.9 MG/DL (0.1-1.0)
[2021-11-20 18:59] LABS: ALKALINE PHOSPHATASE 48 U/L (40-136); CREATININE SERUM 1.51 MG/DL (0.60-1.30); GFR ESTIMATED 34
[2021-11-20 19:00] LABS: BUN/CREATININE RATIO 13
[2021-11-20 19:02] LABS: ALANINE AMINOTRANSFERASE 14 U/L (0-55)
[2021-11-20 19:23] LABS: FREE T4 (FREE THYROXINE) 1.1 NG/DL (0.70-1.48)
--- NOTE | 2021-11-20 19:27 | Diagnostic Imaging Report ---
EXAMINATION: Chest radiograph, portable AP view. DATE: 11/20/2021 7:23 PM. INDICATION: 71-year-old female, chest pain. COMPARISON: July 16, 2018. FINDINGS: There is a left-sided cardiac assist device with leads. Heart size and mediastinal contours are unchanged. There are bilateral shoulder prostheses. There is no identified pneumothorax. There is nonspecific bibasilar airspace consolidation. There are mildly prominent pulmonary vascular markings. IMPRESSION: 1. Nonspecific bibasilar airspace consolidation which may relate to effusions, atelectasis and/or infiltrate. 2. Bilateral interstitial opacities which may reflect edema, atypical infection and/or pneumonitis. Dictated by: Dictated on workstation # [id number]
--- NOTE | 2021-11-20 19:37 | ED Chest Pain ---
General Chief Complaint: Cardiac/General Problems Stated Complaint: CHEST PRESSURE - AFIB Nursing Triage Note: PT STATES CHEST PRESSURE FOR ABOUT 2 DAYS, HX OF A-FIB. Source: patient Exam Limitations: no limitations History of Present Illness Date Seen by Provider: Nov 20, 2021 Time Seen by Provider: 18:00 Initial Comments This is 71-year-old woman presents to emergency room with 2 days of chest pressure, dyspnea on exertion, shortness of breath and tachycardia. She has a history of severe nonischemic cardiomyopathy. She had at 1 point an EF of 10 to 15% in 2018. Heart cath showed patent arteries. Echocardiogram February of this year demonstrated an EF of 30 to 35%. She is in atrial fibrillation with RVR on the monitor. She has a pacemaker. Oxygen saturation is noted to be 88% on room air during assessment. She uses CPAP and oxygen at night but not continuous oxygen at home. She has had a subtle cough recently but denies any fever, m yalgia, vomiting, diarrhea, or other symptoms of acute infectious illness. She has been Covid vaccinated. Her primary care provider is [place]. She previously saw Dr. Ramesh for cardiology but now believes her accountant tax is Dr. Wyatt. She takes carvedilol for rate control and Eliquis for stroke prophylaxis. Her , she has not been in atrial fibrillation since 2017. Allergies and Home Medications Allergies Coded Allergies: latex (Verified Allergy, Intermediate, HIVES, 01/12/20) Penicillins (Verified Allergy, Mild, "I GO TO SLEEP", 01/12/20) Patient Home Medication List Home Medication List Reviewed: Yes Amiodarone HCl (Amiodarone HCl) 200 Mg Tablet, 100 MG PO DAILY, (Reported) Entered as Reported by: PARADISE MCKEON on 07/25/18 1005 Apixaban (Eliquis) 5 Mg Tablet, 5 MG PO BID, (Reported) Entered as Reported by: PARADISE MCKEON on 07/25/18 1007 Bumetanide (Bumetanide) 2 Mg Tablet, 1 MG PO DAILY PRN for SWELLING, (Reported) Entered as Reported by: PARADISE MCKEON on 07/14/18 0922 Carvedilol (Carvedilol) 12.5 Mg Tablet, 12.5 MG PO BID, (Reported) Entered as Reported by: PARADISE MCKEON on 07/25/18 1005 Cholecalciferol (Vitamin D3) (Vitamin D3) 25 Mcg Capsule, 25 MCG PO DAILY, (Reported) Entered as Reported by: SAUL GARNICA on 01/12/20 151 Ferrous Sulfate (Iron) 325 Mg Tablet, 325 MG PO DAILY, (Reported) Entered as Reported by: SAUL GARNICA on 01/12/20 151 Insulin Degludec (Tresiba) 100 Unit/1 Ml Vial, 24 UNIT SQ DAILY, (Reported) Entered as Reported by: SAUL GARNICA on 01/12/201518 Insulin Lispro (Insulin Lispro Kwikpen U-100) Unknown Strength Insuln.pen, Unknown Dose SQ, (Reported) Entered as Reported by: SAUL GARNICA on 01/12/20 151 Levocetirizine Dihydrochloride (Levocetirizine Dihydrochloride) 5 Mg Tablet, 5 MG PO DAILY, (Reported) Entered as Reported by: SAUL GARNICA on 01/12/201518 Levothyroxine Sodium (Levothyroxine Sodium) 125 Mcg Tablet, 125 MCG PO DAILY, (Reported) Entered as Reported by: NEFTALY MALONEY on 03/18/18 0910 Magnesium Oxide (Magnesium) 400 Mg Capsule, 400 MG PO DAILY, (Reported) Entered as Reported by: PARADISE MCKEON on 07/25/18 1007 Montelukast Sodium (Montelukast Sodium) 10 Mg Tablet, 10 MG PO DAILY, (Reported) Entered as Reported by: SAUL GARNICA on 01/12/20 151 [place] 3 Polyunsat Fatty Acids (Fish Oil 1,000 mg Capsule) 1,000 Mg Cap, 1,000 MG PO DAILY, (Reported) Entered as Reported by: PARADISE MCKEON on 07/25/18 1008 Paroxetine HCl (Paroxetine HCl) 40 Mg Tablet, 40 MG PO DAILY, (Reported) Entered as Reported by: NEFTALY MALONEY on 03/18/18 0910 Rosuvastatin Calcium (Rosuvastatin Calcium) 5 Mg Tablet, 5 MG PO HS, (Reported) Entered as Reported by: PARADISE MCKEON on 07/25/18 1010 Semaglutide (Ozempic) 0.25 Mg/0.2 Ml Pen.injctr, 0.25 MG SQ WEEK, (Reported) Entered as Reported by: SAUL GARNICA on 01/12/20 1519 Spironolactone (Spironolactone) 25 Mg Tablet, 25 MG PO DAILY, (Reported) Entered as Reported by: PARADISE MCKEON on 07/25/18 1006 Review of Systems Review of Systems Constitutional: see HPI, malaise, weakness EENTM: No Symptoms Reported Respiratory: See HPI Cardiovascular: See HPI Gastrointestinal: No Symptoms Reported Genitourinary: No Symptoms Reported Musculoskeletal: no symptoms reported Skin: no symptoms reported Psychiatric/Neurological: No Symptoms Reported Endocrine: No Symptoms Reported Hematologic/Lymphatic: No Symptoms Reported Past Yqdfllv-Hkwszq-Ytqqes Hx Patient Social History Tobacco Use?: Yes Tobacco type used: Cigarettes Smoking Status: Former Smoker Substance use?: No Alcohol Use?: Yes Alcohol type: Wine Alcohol Frequency: Rarely Immunizations Up To Date Tetanus Booster (TDap): Unknown PED Vaccines UTD: No Third COVID19 Vaccination Date: 11/03/21 COVID19 Vaccine Glazier Stained Glass: NextInput Seasonal Allergies Seasonal Allergies: No Past Medical History Surgeries: Yes (DENTAL, CARPAL TUNNEL, L SHOUDER,L KNEE) Cardiac (History of cardioversion), Defibrillator, Hysterectomy, Oophorectomy, Orthopedic, Pacemaker, Tonsillectomy Respiratory: Yes Pneumonia Currently Using CPAP: No Currently Using BIPAP: No Cardiac: Yes (pacemaker and defib pgrpdx-gypetsnplgo-vbpasxabzxn shock) Atrial Fibrillation, Chronic Edema/Swelling, Coronary Artery Disease, High Cholesterol, Hypertension Neurological: No Reproductive Disorders: Yes Sexually Transmitted Disease: No Genitourinary: Yes (acute kidney injury) Gastrointestinal: Yes Liver Disease/Jaundice Musculoskeletal: Yes (left knee bone on bone) Arthritis Endocrine: Yes Diabetes, Insulin dep, Hypothyroidsim HEENT: Yes Cataract Cancer: No Psychosocial: Yes Depression Integumentary: No Blood Disorders: No Family Medical History Cardiovascular disease 19 FATHER, Onset:50's - 60 Physical Exam Vital Signs Vital Signs - First Documented 11/20/21 11/20/21 18:06 18:08 Temp 37.1 Pulse 144 Resp 20 B/P (MAP) 145/82 (103) Pulse Ox 98 O2 Delivery Nasal Cannula O2 Flow Rate 2.00 Capillary Refill : Less Than 3 Seconds Height, Weight, BMI Height: 5'1.00" Weight: 193lbs. 0.0oz. 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 Norm as Tested Skin: Normal Color, Warm/Dry Procedures/Interventions Date of ETT Placement: Mar 18, 2018 Time of ETT Placement: 1318 Progress/Results/Core Measures Results/Orders Lab Results Laboratory Tests Test 11/20/21 18:15 11/20/21 19:15 Range/Units White Blood Count 7.4 4.3-11.0 10^3/uL Red Blood Count 4.93 3.80-5.11 10^6/uL Hemoglobin 14.7 11.5-16.0 g/dL Hematocrit 47 35-52 % Mean Corpuscular Volume 96 80-99 fL Mean Corpuscular Hemoglobin 30 25-34 pg Mean Corpuscular Hemoglobin Concent 31 L 32-36 g/dL Red Cell Distribution Width 14.0 10.0-14.5 % Platelet Count 154 130-400 10^3/uL Mean Platelet Volume 11.7 9.0-12.2 fL Immature Granulocyte % (Auto) 0 % Neutrophils (%) (Auto) 73 42-75 % Lymphocytes (%) (Auto) 18 12-44 % Monocytes (%) (Auto) 5 0-12 % Eosinophils (%) (Auto) 3 0-10 % Basophils (%) (Auto) 1 0-10 % Neutrophils # (Auto) 5.4 1.8-7.8 10^3/uL Lymphocytes # (Auto) 1.3 1.0-4.0 10^3/uL Monocytes # (Auto) 0.4 0.0-1.0 10^3/uL Eosinophils # (Auto) 0.2 0.0-0.3 10^3/uL Basophils # (Auto) 0.0 0.0-0.1 10^3/uL Immature Granulocyte # (Auto) 0.0 0.0-0.1 10^3/uL Prothrombin Time 15.7 H 12.2-14.7 SEC INR Comment 1.2 0.8-1.4 Activated Partial Thromboplast Time 34 24-35 SEC Sodium Level 140 135-145 MMOL/L Potassium Level 4.2 3.6-5.0 MMOL/L Chloride Level 104 98-107 MMOL/L Carbon Dioxide Level 24 21-32 MMOL/L Anion Gap 12 5-14 MMOL/L Blood Urea Nitrogen 20 H 7-18 MG/DL Creatinine 1.51 H 0.60-1.30 MG/DL Estimat Glomerular Filtration Rate 34 BUN/Creatinine Ratio 13 Glucose Level 141 H 70-105 MG/DL Calcium Level 9.3 8.5-10.1 MG/DL Corrected Calcium 9.2 8.5-10.1 MG/DL Magnesium Level 2.0 1.6-2.4 MG/DL Total Bilirubin 0.9 0.1-1.0 MG/DL Aspartate Amino Transf (AST/SGOT) 13 5-34 U/L Alanine Aminotransferase (ALT/SGPT) 14 0-55 U/L Alkaline Phosphatase 48 40-136 U/L Myoglobin 103.3 H 10.0-92.0 NG/ML Troponin I < 0.028 <0.028 NG/ML C-Reactive Protein High Sensitivity 0.91 H 0.00-0.50 MG/DL B-Type Natriuretic Peptide 257.9 H <100.0 PG/ML Total Protein 7.1 6.4-8.2 GM/DL Albumin 4.1 3.2-4.5 GM/DL Thyroid Stimulating Hormone (TSH) 3.32 0.35-4.94 UIU/ML Free Thyroxine 1.10 0.70-1.48 NG/DL Influenza Type A (RT-PCR) Not Detected Not Detecte Influenza Type B (RT-PCR) Not Detected Not Detecte SARS-CoV-2 RNA (RT-PCR) Not Detected Not Detecte My Orders Orders - GLEN COYLE MD Cbc With Automated Diff (11/20/21 18:01) Magnesium (11/20/21 18:01) Chest 1 View, Ap/Pa Only (11/20/21 18:01) Ekg Tracing (11/20/21 18:01) Comprehensive Metabolic Panel (11/20/21 18:01) Myoglobin Serum (11/20/21 18:01) Protime With Inr (11/20/21 18:01) Partial Thromboplastin Time (11/20/21 18:01) O2 (11/20/21 18:01) Monitor-Rhythm Ecg Trace Only (11/20/21 18:01) Ed Iv/Invasive Line Start (11/20/21 18:01) Diltiazem Drip Pre-Mix (Cardizem Drip Pr (11/20/21 18:15) Diltiazem Injection (Cardizem Injection) (11/20/21 18:15) Bnp Cross (11/20/21 18:25) Hs C Reactive Protein (11/20/21 18:25) Thyroid Stimulating Hormone (11/20/21 18:25) Free T4 (Free Thyroxine) (11/20/21 18:25) Troponin I Sherry (11/20/21 18:15) Covid 19 Inhouse Test (11/20/21 18:59) Influenza A And B By Pcr (11/20/21 18:59) Medications Given in ED Vital Signs/I&O 11/20/21 11/20/21 18:06 18:08 Temp 37.1 Pulse 144 Resp 20 B/P (MAP) 145/82 (103) Pulse Ox 98 97 O2 Delivery Nasal Cannula Nasal Cannula O2 Flow Rate 2.00 2.00 Blood Pressure Mean: 103 Progress Progress Note #1: Time: 19:42 Progress Note Patient was started on Cardizem bolus and drip shortly after assessment. Oxygen saturation resuscitated on 4 L by nasal cannula. Infiltrates were seen on chest x-ray. Covid and influenza swabs are pending. Progress Note #2: Progress Note Influenza and Covid screens were negative. Although there were possible infiltrates or consolidations seen on x-ray, she did not have fever or notable elevation in WBC or CRP. Infection is unlikely. Patient has already been taking Eliquis for anticoagulation and stroke prophylaxis. Case was discussed with Dr. Banks and Dr. Morrison. Initial ECG Impression Date: Nov 20, 2021 Initial ECG Impression Time: 18:04 Initial ECG Rate: 131 Initial ECG Rhythm: A Fib/Flutter Initial ECG Impression: Atrial Fibrillation w/RVR Comment Atrial fibrillation with RVR. No ST elevation or depression to suggest ischemia. Diagnostic Imaging Diagonstic Imaging: Xray Plain Films/CT/US/NM/MRI: chest Comments Chest x-ray viewed by me and report reviewed. See report below NAME: FARHEEN GUTIERRES [facility] REC#: [id number] PT STATUS: REG ER : 1950 PHYSICIAN: GLEN COYLE MD ADMIT DATE: 11/20/21/ER Draft Date of Exam:11/20/21 CHEST 1 VIEW, AP/PA ONLY EXAMINATION: Chest radiograph, portable AP view. DATE: 11/20/2021 7:23 PM. INDICATION: 71-year-old female, chest pain. COMPARISON: July 16, 2018. FINDINGS: There is a left-sided cardiac assist device with leads. Heart size and mediastinal contours are unchanged. There are bilateral shoulder prostheses. There is no identified pneumothorax. There is nonspecific bibasilar airspace consolidation. There are mildly prominent pulmonary vascular markings. IMPRESSION: 1. Nonspecific bibasilar airspace consolidation which may relate to effusions, atelectasis and/or infiltrate. 2. Bilateral interstitial opacities which may reflect edema, atypical infection and/or pneumonitis. Dictated on workstation # [id number] Dict: 11/20/211923 Trans: 11/20/211925 [facility] [id number] Interpreted by: PERRY COTA MD Departure Communication (Admissions) Time/Spoke to Admitting Phy: 20:50 Dr. Morrison Time/Spoke to Consulting Phy: 20:15 Dr. Banks Impression Primary Impression: Atrial fibrillation with RVR Additional Impressions: Cardiomyopathy Qualified Codes: I42.9 - Cardiomyopathy, unspecified Diastolic heart failure Qualified Codes: I50.33 - Acute on chronic diastolic (congestive) heart failure Hypoxia Disposition: ADMITTED INPATIENT Condition: Improved Admissions Decision to Admit Reason: Admit from ER (General) Decision to Admit/Date: Nov 20, 2021 Time/Decision to Admit Time: 18:10 Departure-Patient Inst. Referrals: VIKASH BUI MD (PCP) Primary Care Physician DEMAR HILLS (Family) Primary Care Physician GLEN COYLE MD Nov 20, 2021 19:36
[2021-11-20] MEDS ORDERED: APIXABAN 5 MG (ELIQUIS) TABLET PO ONE (21:00)
[2021-11-20 21:13] VITALS: BP 126/65
[2021-11-20] MEDS ORDERED: FUROSEMIDE 40 MG/4 ML INJ (LASIX) IVP ONE (23:00)
--- NOTE | 2021-11-20 23:13 | Tele-ICU Consult ---
Progress Note TeleICU (Pt video, monitor , chart review and nursing communication) S/O: 71 yo woman admitted through ED with c/c 2 days chest pressure, DEXTER, tachycardia. Found to be in afib with rapid RVR and stated on diltiazem bolus and drip . Currently afib rate 101 BP 157/111- cuff not fitting well on arm per nursing- on cardizem 10 mg/hr PMHx: Nonischemic cardiomyopathy , Afib on carvedilol, Eliquis, amiodarone, diuretics, DM on insulin and semaglutide , hypothyroidism on levothyroxine,COPD -home CPAP and montelukast CXR: PPM, infiltrates bilaterally, mainly lower lung magallon. Labs: WBCs 7400 Hgb 14.7 Plts 154,000 INR 1.2 BUN 20 Creat 1.5 Na 149 K 4.2 Cl 10 Bicarb 24 Mg 2.0 Gluc 141 Myoglobin 103.3 CPR 0.91 Trop <0.028 BNP 257 Flu A, B, and COVID-by PCR neg TSH 3.32 T4 1.10 A/P: 1. Atrial fibrillation w/ RVR- Cardiology is consulted and managing with cardizem drip and continuing Eliquis 2. Hypertension- as above , d/w nursing to titrate up the cardizem for better rate control and will affect BP. Add Lasix 40 mg IV x1 now. 3. COPD/ JOVANI- sats acceptable on NC O2- is bringing in her home CPAP for later use. 4. CHF- cardiology has ordered ECHO for Am, will repeat CBC, Procal in AM- no abx at present, pt reports no sputum production. 5. DVT prophylaxis- SCDs, Eliquis 6. GIB -prophylaxis- is on PO diet. 7. DM - Primary service is managng diabetes- added Hgb A1C to AM labs. Focused Exam Height, Weight, BMI Height: 5'1.00" Weight: 193lbs. 0.0oz. 87.991117la; 43.85 BMI Method:Stated LAUREANO MESSER DO Nov 20, 2021 23:13
[2021-11-20] MEDS ORDERED: CATHETER FLUSH 10 ML SYR IV PRN (23:45)
[2021-11-21] MEDS: dilTIAZem DRIP PRE-MIX 125 ML IV SCH ×3 (03:39→20:46)
[2021-11-21 04:38] LABS: MEAN CORPUSCULAR HEMOGLOBIN 30 pg (25-34)
[2021-11-21 04:40] LABS: BASOPHILS # (AUTO) 0.1 10^3/uL (0.0-0.1); BASOPHILS % (AUTO) 1 % (0-10); EOSINOPHILS # (AUTO) 0.3 10^3/uL (0.0-0.3); EOSINOPHILS % (AUTO) 4 % (0-10); HEMATOCRIT 43 % (35-52); HEMOGLOBIN 13.8 g/dL (11.5-16.0); LYMPHOCYTES # (AUTO) 0.9 10^3/uL (1.0-4.0); LYMPHOCYTES % (AUTO) 13 % (12-44); MEAN CORPUSCULAR HGB CONC 32 g/dL (32-36); MEAN CORPUSCULAR VOLUME 94 fL (80-99); MEAN PLATELET VOLUME 11.6 fL (9.0-12.2); MONOCYTES # (AUTO) 0.5 10^3/uL (0.0-1.0); MONOCYTES % (AUTO) 6 % (0-12); NEUTROPHILS # (AUTO) 5.6 10^3/uL (1.8-7.8); NEUTROPHILS % (AUTO) 76 % (42-75); PLATELET COUNT 129 10^3/uL (130-400); WHITE BLOOD COUNT 7.4 10^3/uL (4.3-11.0)
[2021-11-21 04:50] LABS: ALBUMIN 3.8 GM/DL (3.2-4.5); POTASSIUM 4.1 MMOL/L (3.6-5.0)
[2021-11-21 04:51] LABS: CALCIUM 9.2 MG/DL (8.5-10.1)
[2021-11-21 04:53] LABS: TOTAL PROTEIN 6.6 GM/DL (6.4-8.2)
[2021-11-21 04:54] LABS: BILIRUBIN,TOTAL 1.2 MG/DL (0.1-1.0)
[2021-11-21 04:56] LABS: CREATININE SERUM 1.46 MG/DL (0.60-1.30); PHOSPHORUS 3.8 MG/DL (2.3-4.7)
[2021-11-21 04:59] LABS: MAGNESIUM 1.8 MG/DL (1.6-2.4)
[2021-11-21] MEDS: inSUlin ASPART (NovoLOG) 1 UNIT/0.01 ML (CHARGE PER UNIT) SC SCH ×4 (05:17→20:44)
[2021-11-21] MEDS: CATHETER FLUSH 10 ML SYR IV SCH ×3 (05:18→21:42)
[2021-11-21] MEDS: LEVOTHYROXINE 125 MCG (LEVOTHROID) TABLET PO SCH (06:04)
--- NOTE | 2021-11-21 06:45 | Diagnostic Imaging Report ---
EXAMINATION: Chest 1 view HISTORY: Atrial fibrillation. COMPARISON: 11/20/2021. FINDINGS: There is continued cardiomegaly and central pulmonary vascular congestion. Stable left pectoral ICD. There is increasing interstitial and alveolar opacities throughout the right lung and in the left perihilar region. No large pleural effusion or pneumothorax. IMPRESSION: 1. Continued cardiomegaly and central pulmonary vessel congestion with mildly increased edema. Dictated by: Dictated on workstation # [id number]
[2021-11-21] MEDS ORDERED: FLU QUAD HIGH DOSE 240 MCG/0.7 ML 2021-22 (FLUZONE) IM ONE (07:15)
[2021-11-21] MEDS: APIXABAN 5 MG (ELIQUIS) TABLET PO SCH ×2 (08:39→20:34)
[2021-11-21] MEDS: lisINopril 10 MG (PRINIVIL) TABLET PO SCH (08:39)
[2021-11-21] MEDS: PARoxetine 20 MG (PAXIL) TAB PO SCH (08:39)
[2021-11-21] MEDS ORDERED: CHOL20003 PO (09:11)
[2021-11-21] MEDS ORDERED: MAGN250T35 PO (09:11)
[2021-11-21] MEDS ORDERED: OMEG-109 PO (09:11)
[2021-11-21] MEDS ORDERED: INSU100I32 SC (09:11)
[2021-11-21] MEDS ORDERED: CICL6.6S22 TOP (09:11)
[2021-11-21] MEDS ORDERED: LISI10TA25 PO (09:11)
[2021-11-21] MEDS ORDERED: SEMA1PEN3 INJ (09:11)
--- NOTE | 2021-11-21 11:35 | Tele-ICU Progress Note ---
Subjective Date Seen by a Provider: Nov 21, 2021 Time Seen by a Provider: 11:00 Subjective/Events-last exam This virtual visit was conducted using real time audio/video. Thank you for asking us to see this patient for respiratory insufficiency due to COPD. Admitted w afib/RVR, Recent events: None. PE: Morbidly obese. VSS. O2 sat 94% on 5LPM NC. HEENT: No obvious masses, adenopathy or JVD. Chest: clear to auscultation. CV: Irreg 75-85/min afib. S1 S2 No murmur or added sounds. Abd: Non-tender. Bowel sounds Y. : Unremarkable. [place]. PLUMBER PIPE FITTING/psychiatric: Grossly intact. No obvious focal findings. Extremities: 1+ edema. Capillary refill < 3 seconds. Skin: unremarkable. Results: Elevated BUN 19, creat 1.46, BNP 257.9. CXR: Cardiomegaly, congestion, hyperinflation. Available chart/ vitals / labs / images reviewed. Video assessment done using teleICU camera, rest of exam as per RN. A/P: Respiratory insufficiency: Continue present management with NC, awaiting home CPAP. Monitor for increasing oxygenation needs and/or need for intubation. Critical Care: critically ill patient. Cont. Dilt., Eliquis,coreg, Lisinopril, Synthroid, SSI, Levemir. ECHO pending. Discussed with RN Radha. Asked RN to reach out to eICU if any questions or concerns later. Time spent with patient/coordination of care with other health professionals (mins): 15 Sepsis Event Evaluation Height, Weight, BMI Height: 5'1.00" Weight: 193lbs. 0.0oz. 87.607828lj; 43.85 BMI Method:Stated Exam Exam Patient acknowledged, consented, and participated in this virtual visit which was conducted using real time audio/video Vital Signs Date Time Temp Pulse Resp B/P (MAP) Pulse Ox O2 Delivery O2 Flow Rate FiO2 11/21/21 08:00 High Flow N/C 5.00 11/21/21 07:20 37.1 11/21/21 07:00 94 11/21/21 06:00 78 20 118/61 88 High Flow N/C 5.00 11/21/21 05:00 81 18 122/84 87 High Flow N/C 5.00 11/21/21 04:00 89 14 104/63 88 High Flow N/C 5.00 11/21/21 04:00 36.7 11/21/21 03:41 Nasal Cannula 5.00 11/21/21 03:00 135 19 121/62 91 High Flow N/C 5.00 11/21/21 02:00 80 20 108/61 90 High Flow N/C 5.00 11/21/21 01:15 High Flow N/C 5.00 11/21/21 01:00 83 17 95/75 93 Nasal Cannula 4.00 11/21/21 01:00 83 11/21/21 00:00 79 22 138/83 88 Nasal Cannula 4.00 11/20/21 23:35 Nasal Cannula 5.00 11/20/21 23:00 111 24 162/97 90 Nasal Cannula 4.00 11/20/21 22:30 101 20 177/110 88 Nasal Cannula 4.00 11/20/21 22:29 Nasal Cannula 5.00 11/20/21 22:15 89 20 153/118 91 Nasal Cannula 4.00 11/20/21 22:00 88 25 162/96 92 Nasal Cannula 4.00 11/20/21 21:45 117 17 149/128 90 Nasal Cannula 4.00 11/20/21 21:35 104 11/20/21 21:30 37.0 106 12 138/99 90 Nasal Cannula 4.00 11/20/21 21:13 37.1 102 20 126/65 94 Nasal Cannula 3.00 2.00 11/20/21 18:08 37.1 144 20 145/82 (103) 97 Nasal Cannula 2.00 11/20/21 18:06 98 Nasal Cannula 2.00 I & O 11/21/21 07:00 Intake Total 350 ml Balance 350 ml Height & Weight Height: 5'1.00" Weight: 193lbs. 0.0oz. 87.693770aw; 43.85 BMI Method:Stated General Appearance: No Apparent Distress, WD/WN, Obese (See free text) HEENT: PERRL/EOMI, Normal ENT Inspection Neck: Normal Inspection Respiratory: Lungs Clear, No Accessory Muscle Use, No Respiratory Distress, Decreased Breath Sounds (Right lower lung) Cardiovascular: No Edema, No Murmur, Irregularly Irregular Capillary Refill: Less Than 3 Seconds Peripheral Pulses: 1+ Dorsalis Pedis (R), 1+ Left Dors-Pedis (L) Extremity: Normal Inspection, Non Tender, Swelling (Slight lower extremity edema) Neurologic/Psychiatric: Alert, Oriented x3, No Motor/Sensory Deficits, Normal 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 Critical Care: Critically Ill Patient LORA MISHRA MD Nov 21, 2021 11:35
--- NOTE | 2021-11-21 18:38 | History & Physical-Hospitalist ---
History of Present Illness HPI/Chief Complaint Elsa Kebede is a 71 year old female with PMH HTN, T2DM, HLD, JOVANI on CPAP with nocturnal oxygen, hypothyroidism, heart failure with reduced ejection fraction, pacemaker/AICD, atrial fibrillation, who presented with chest pressure. She is still having some chest pain on my exam. She denies any radiation of the pain. She has associated shortness of breath. She denies diaphoresis. She denies nausea and vomiting. She denies fevers, chills, cough, abdominal pain, and diarrhea. Source: patient, family Exam Limitations: no limitations Date Seen 11/21/21 Time Seen by a Provider: 09:40 Attending Physician Kailey Cevallos MD PCP Jimbo Vázquez MD Referring Physician Date of Admission Nov 20, 2021 at 20:50 Home Medications & Allergies Home Medications Reviewed patient Home Medication Reconciliation performed by pharmacy medication reconciliations bomb technician and/or nursing. Patients Allergies have been reviewed. Allergies Allergies Coded Allergies latex (Verified Allergy, Intermediate, HIVES, 01/12/20) Penicillins (Verified Allergy, Mild, "I GO TO SLEEP", 01/12/20) Past Eaulgir-Bjkqxv-Rwwsvw Hx Patient Social History Tobacco Use?: No Tobacco type used: Cigarettes Smoking Status: Former Smoker Substance use?: No Alcohol Use?: Yes Alcohol type: Wine Alcohol Frequency: Once in a while Immunizations Up To Date First/Initial COVID19 Vaccinat: 11/03/21 Second COVID19 Vaccination Moiz: 11/03/21 Tetanus Booster (TDap): More Than 5 Years Hepatitis A: No Hepatitis B: No PED Vaccines UTD: No Seasonal Allergies Seasonal Allergies: No Current Status Primary Language: [place] Citizen Preferred Spoken Language: [place] Citizen Implanted or Applied Medical D: Implantable cardioverter, Pacemaker Past Medical History Surgeries: Cardiac (History of cardioversion), Defibrillator, Hysterectomy, Oophorectomy, Orthopedic, Pacemaker, Tonsillectomy Pneumonia Currently Using CPAP: No Currently Using BIPAP: No Atrial Fibrillation, Chronic Edema/Swelling, Coronary Artery Disease, High Cholesterol, Hypertension Sexually Transmitted Disease: No Liver Disease/Jaundice Arthritis Diabetes, Insulin dep, Hypothyroidsim Cataract Depression Blood Disorders: No Family Medical History Cardiovascular disease 19 FATHER, Onset:50's - 60 Review of Systems Constitutional: no symptoms reported EENTM: no symptoms reported Respiratory: dyspnea on exertion, short of breath Cardiovascular: chest pain Gastrointestinal: no symptoms reported Genitourinary: no symptoms reported Musculoskeletal: no symptoms reported Skin: no symptoms reported Psychiatric/Neurological: No Symptoms Reported Physical Exam Physical Exam Vital Signs Vital Signs - First Documented 11/20/21 11/20/21 18:06 18:08 Temp 37.1 Pulse 144 Resp 20 B/P (MAP) 145/82 (103) Pulse Ox 98 O2 Delivery Nasal Cannula O2 Flow Rate 2.00 Capillary Refill : Less Than 3 Seconds Height, Weight, BMI Height: 5'1.00" Weight: 193lbs. 0.0oz. 87.741812jf; 43.85 BMI Method:Stated General Appearance: No Apparent Distress, Obese HEENT: PERRL/EOMI, Pharynx Normal Neck: Normal Inspection, Supple Respiratory: Lungs Clear, Normal Breath Sounds, No Respiratory Distress Cardiovascular: Regular Rate, Rhythm, No Edema, No Murmur Gastrointestinal: Normal Bowel Sounds, Non Tender, Soft Extremity: Normal Inspection, Non Tender, No Pedal Edema Neurologic/Psychiatric: Alert, Oriented x3, No Motor/Sensory Deficits, Normal Mood/Affect Skin: Normal Color, Warm/Dry Results Results/Procedures Labs Laboratory Tests 11/20/21 18:15 11/21/21 04:19 Patient resulted labs reviewed. Imaging: Reviewed Imaging Report Assessment/Plan Admission Diagnosis AFib with RVR Admission Status: Inpatient Order (span 2 midnights) Reason for Inpatient Admission: IV antiarrhythmics Assessment and Plan AFib with RVR Chest pain Cardizem gtt Eliquis Cardiology consulted T2DM Levemir Sliding scale insulin HFpEF NICM HTN HLD Hypothyroidism CKD 3b Morbid obesity DVT prophylaxis: already receiving therapeutic anticoagulation Diagnosis/Problems Diagnosis/Problems (1) Atrial fibrillation with RVR Status: Acute (2) Diastolic heart failure Status: Acute Qualifiers: Heart failure chronicity: acute on chronic Qualified Codes: I50.33 - Acute on chronic diastolic (congestive) heart failure (3) Cardiomyopathy Status: Acute Qualifiers: Cardiomyopathy type: unspecified Qualified Codes: I42.9 - Cardiomyopathy, unspecified (4) Primary hypertension Status: Chronic (5) Mixed hyperlipidemia Status: Chronic (6) Morbid obesity Status: Chronic (7) Type 2 diabetes mellitus with complication Status: Acute (8) Stage 3 chronic kidney disease Qualifiers: Chronic kidney disease stage 3 subtype: stage 3b (GFR 30-44) Qualified Codes: N18.32 - Chronic kidney disease, stage 3b AKILEY CEVALLOS MD Nov 21, 2021 18:38
[2021-11-21] MEDS ORDERED: ENOXAPARIN 40 MG/0.4 ML (LOVENOX) SYR SC SCH (18:45)
--- NOTE | 2021-11-21 19:34 | Consultation-Cardiology ---
HPI-Cardiology Cardiology Consultation: Date of Consultation 11/21/2021 Date of Admission 11/20/2021 Attending Physician Winifred Morrison MD Admitting Physician Jimbo Vázquez MD Consulting Physician MARBIN VALLEJO JR, MD HPI: Time Seen by a Provider: 19:28 Chief Complaint: Reason for consultation: Atrial fibrillation. Had the pleasure of seeing Elsa in the intensive care unit at [facility] in [place], [place] this evening. She has a history of cardiomyopathy with a previous defibrillator implantation that improved and paroxysmal atrial fibrillation. Last week she started having intermittent episodes of dyspnea on exertion. She did not think much of this. She denies any palpitations. Then yesterday she had more severe dyspnea and also had substernal chest tightness. She felt like somebody was sitting on her chest. Her tried to check her pulse oximetry and the device would not register. He checked his finger and the device was measuring normally. He then checked her blood pressure and her heart rate was 150 so he brought her to the hospital for further evaluation. She was found to be in atrial fibrillation with a rapid ventricular rate and a cardiology consultation was requested. She was placed on intravenous diltiazem and admitted to the intensive care unit. Overnight, her heart rate improved and her chest discomfort resolved. She is no longer short of breath. When she was having the chest tightness she felt somewhat lightheaded but denies any syncope. She denies paroxysmal nocturnal dyspnea, insomnia, palpitations, or lower extremity edema. Certain portions of this document may have been dictated utilizing voice recognition technology. Inherent to this technology, typographical and grammatical errors may exist. As much as I am diligent to identify and correct these mistakes, some errors may remain in the document. Review of Systems-Cardiology Review of Systems Other comments Review of 10 organ systems is as per the history of present illness, otherwise negative. [id number] Hx Patient Social History Marrital Status: Smoking Status: Former Smoker Have you traveled recently?: No Alcohol Use?: Yes Tobacco type used: Cigarettes Immunizations Up To Date Tetanus Booster (TDap): Unknown Past Medical History PMH As described under Assessment. Family Medical History Family History: Cardiovascular disease 19 FATHER, Onset:50's - 60 Allergies and Home Medications Allergies Coded Allergies: latex (Verified Allergy, Intermediate, HIVES, 01/12/20) Penicillins (Verified Allergy, Mild, "I GO TO SLEEP", 01/12/20) Patient Home Medication List Home Medication List Reviewed: Yes Apixaban (Eliquis) 5 Mg Tablet, 5 MG PO BID WITH MEALS, (Reported) Entered as Reported by: PARADISE MCKEON on 07/25/18 1007 Last Action: Reviewed Carvedilol (Carvedilol) 12.5 Mg Tablet, 12.5 MG PO BID WITH MEALS, (Reported) Entered as Reported by: PARADISE MCKEON on 07/25/18 1005 Last Action: Reviewed Cholecalciferol (Vitamin D3) (Vitamin D3) 50 Mcg Capsule, 50 MCG PO DAILY, (Reported) Entered as Reported by: VETO SALCEDO on 11/21/21910 Last Action: Reviewed Ciclopirox (Ciclopirox) 6.6 Ml Solution, 1 APPFUL TOP HS PRN for FUNGUS, (Reported) Entered as Reported by: VETO SALCEDO on 11/21/21910 Last Action: Reviewed Ferrous Sulfate (Iron) 325 Mg Tablet, 325 MG PO DAILY, (Reported) Entered as Reported by: SAUL GARNICA on 01/12/201518 Last Action: Reviewed Insulin Degludec (Tresiba Flextouch U-100) 100 Unit/1 Ml Insuln.pen, 38 UNITS SC HS, (Reported) Entered as Reported by: VETO SALCEDO on 11/21/21910 Last Action: Reviewed Insulin Lispro (Insulin Lispro Kwikpen U-100) Unknown Strength Insuln.pen, UNITS SC ACHS, (Reported) Entered as Reported by: SAUL GARNICA on 01/12/201518 Last Action: Reviewed Levothyroxine Sodium (Levothyroxine Sodium) 125 Mcg Tablet, 125 MCG PO DAILY, (Reported) Entered as Reported by: NEFTALY MALONEY on 03/18/18909 Last Action: Reviewed Lisinopril (Lisinopril) 10 Mg Tablet, 10 MG PO DAILY, (Reported) Entered as Reported by: VETO SALCEDO on 11/21/21910 Last Action: Reviewed Magnesium Oxide (Magnesium Oxide) 250 Mg Tablet, 250 MG PO DAILY, (Reported) Entered as Reported by: VETO SALCEDO on 11/21/21910 Last Action: Reviewed Roslyn-3 Fatty Acids/Fish Oil (Fish Oil 1,200 mg Softgel) 1 Each Capsule, 1 EACH PO DAILY, (Reported) Entered as Reported by: VETO SALCEDO on 11/21/21910 Last Action: Reviewed Paroxetine HCl (Paroxetine HCl) 40 Mg Tablet, 40 MG PO HS, (Reported) Entered as Reported by: NEFTALY MALONEY on 03/18/18 0910 Last Action: Reviewed Rosuvastatin Calcium (Rosuvastatin Calcium) 5 Mg Tablet, 5 MG PO HS, (Reported) Entered as Reported by: PARADISE MCKEON on 07/25/18 1010 Last Action: Reviewed Semaglutide (Ozempic) 1 Mg/0.75 Ml Pen.injctr, 1 MG INJ TUE, (Reported) Entered as Reported by: VETO SALCEDO on 11/21/21910 Last Action: Reviewed Discontinued Medications Amiodarone HCl (Amiodarone HCl) 200 Mg Tablet, 100 MG PO DAILY, (Reported) Discontinued Reason: No Longer Taking Entered as Reported by: PARADISE MCKEON on 07/25/18 1005 Last Action: Discontinued Cholecalciferol (Vitamin D3) (Vitamin D3) 25 Mcg Capsule, 25 MCG PO DAILY, (Reported) Discontinued Reason: Prescription changed Entered as Reported by: SAUL GARNICA on 01/12/201518 Insulin Degludec (Tresiba) 100 Unit/1 Ml Vial, 24 UNIT SQ DAILY, (Reported) Discontinued Reason: Duplicate Order Entered as Reported by: SAUL GARNICA on 01/12/201518 Last Action: Discontinued Levocetirizine Dihydrochloride (Levocetirizine Dihydrochloride) 5 Mg Tablet, 5 MG PO DAILY, (Reported) Discontinued Reason: No Longer Taking Entered as Reported by: SAUL GARNICA on 01/12/201518 Last Action: Discontinued Magnesium Oxide (Magnesium) 400 Mg Capsule, 400 MG PO DAILY, (Reported) Discontinued Reason: Prescription changed Entered as Reported by: PARADISE MCKEON on 07/25/18 1007 Montelukast Sodium (Montelukast Sodium) 10 Mg Tablet, 10 MG PO DAILY, (Reported) Discontinued Reason: No Longer Taking Entered as Reported by: SAUL GARNICA on 01/12/201518 Last Action: Discontinued Roslyn 3 Polyunsat Fatty Acids (Fish Oil 1,000 mg Capsule) 1,000 Mg Cap, 1,000 MG PO DAILY, (Reported) Discontinued Reason: Prescription changed Entered as Reported by: PARADISE MCKEON on 07/25/18 1008 Semaglutide (Ozempic) 0.25 Mg/0.2 Ml Pen.injctr, 0.25 MG SQ WEEK, (Reported) Discontinued Reason: Duplicate Order Entered as Reported by: SAUL GARNICA on 01/12/201518 Last Action: Discontinued Exam Vital Signs Vital Signs Date Time Temp Pulse Resp B/P (MAP) Pulse Ox O2 Delivery O2 Flow Rate FiO2 11/21/21 18:00 72 30 103/88 95 High Flow N/C 5.00 11/21/21 15:17 36.8 Physical Exam General: Alert. No acute distress. Well nourished and appears stated age. She is morbidly obese. Eye: Extraocular movements are intact. Conjunctivae are clear. There are no xanthelasma. HENT: Normocephalic. Atraumatic. Carotid pulsations 2/2 without bruits. Neck: Jugular venous pressure does not appear elevated. No thyromegaly appreciated. Respiratory: Lungs are clear to auscultation. Respirations are non-labored. Breath sounds are equal. Symmetrical chest wall expansion. Cardiovascular: Normal rate. Irregular rhythm. No murmur. No gallop. Point of maximal impulse is not appear displaced. Good pulses equal in all extremities. No edema. Gastrointestinal: Soft. Normal bowel sounds. Skin: Skin turgor is normal. There is no pallor. Musculoskeletal: No kyphosis or scoliosis appreciated. Neurologic: Alert and oriented to person, place, time. Cranial nerves 3-12 appear grossly intact. The patient has good motor tone strength in the upper and lower extremities bilaterally. Psychiatric: Cooperative. Appropriate mood & affect. Labs Laboratory Tests Test 11/21/21 04:19 11/21/21 10:20 11/21/21 12:52 Range/Units White Blood Count 7.4 4.3-11.0 10^3/uL Red Blood Count 4.60 3.80-5.11 10^6/uL Hemoglobin 13.8 11.5-16.0 g/dL Hematocrit 43 35-52 % Mean Corpuscular Volume 94 80-99 fL Mean Corpuscular Hemoglobin 30 25-34 pg Mean Corpuscular Hemoglobin Concent 32 32-36 g/dL Red Cell Distribution Width 14.0 10.0-14.5 % Platelet Count 129 L 130-400 10^3/uL Mean Platelet Volume 11.6 9.0-12.2 fL Immature Granulocyte % (Auto) 1 % Neutrophils (%) (Auto) 76 H 42-75 % Lymphocytes (%) (Auto) 13 12-44 % Monocytes (%) (Auto) 6 0-12 % Eosinophils (%) (Auto) 4 0-10 % Basophils (%) (Auto) 1 0-10 % Neutrophils # (Auto) 5.6 1.8-7.8 10^3/uL Lymphocytes # (Auto) 0.9 L 1.0-4.0 10^3/uL Monocytes # (Auto) 0.5 0.0-1.0 10^3/uL Eosinophils # (Auto) 0.3 0.0-0.3 10^3/uL Basophils # (Auto) 0.1 0.0-0.1 10^3/uL Immature Granulocyte # (Auto) 0.0 0.0-0.1 10^3/uL Percent Immature Platelet Fraction 4.3 0.0-7.6 % Sodium Level 141 135-145 MMOL/L Potassium Level 4.1 3.6-5.0 MMOL/L Chloride Level 104 98-107 MMOL/L Carbon Dioxide Level 25 21-32 MMOL/L Anion Gap 12 5-14 MMOL/L Blood Urea Nitrogen 19 H 7-18 MG/DL Creatinine 1.46 H 0.60-1.30 MG/DL Estimat Glomerular Filtration Rate 36 BUN/Creatinine Ratio 13 Glucose Level 139 H 70-105 MG/DL Calcium Level 9.2 8.5-10.1 MG/DL Corrected Calcium 9.4 8.5-10.1 MG/DL Phosphorus Level 3.8 2.3-4.7 MG/DL Magnesium Level 1.8 1.6-2.4 MG/DL Total Bilirubin 1.2 H 0.1-1.0 MG/DL Aspartate Amino Transf (AST/SGOT) 12 5-34 U/L Alanine Aminotransferase (ALT/SGPT) 12 0-55 U/L Alkaline Phosphatase 46 40-136 U/L C-Reactive Protein High Sensitivity 1.07 H 0.00-0.50 MG/DL B-Type Natriuretic Peptide 172.9 H <100.0 PG/ML Total Protein 6.6 6.4-8.2 GM/DL Albumin 3.8 3.2-4.5 GM/DL Triglycerides Level 72 <150 MG/DL Cholesterol Level 106 < 200 MG/DL LDL Cholesterol Direct 53 1-129 MG/DL VLDL Cholesterol 14 5-40 MG/DL HDL Cholesterol 37 L 40-60 MG/DL Procalcitonin 0.05 <0.10 NG/ML Glucometer 196 H 213 H 70-110 MG/DL ECG Impression ECG Comment Electrocardiogram from the emergency room on 11/20/2021 shows atrial fibrillation with low voltages and poor R wave progression. Diagnosis/Problems Diagnosis/Problems (1) Paroxysmal atrial fibrillation Assessment & Plan: She remains in atrial fibrillation on intravenous diltiazem. She has been getting her carvedilol that she takes at home. I will increase the dose of carvedilol and attempt to wean off the intravenous diltiazem. We will continue apixaban which she was taking for stroke prophylaxis. I will review her records from the office and decide whether or not she should be on antiarrhythmic drug versus just perform a cardioversion. Since this is her third or fourth episode of atrial fibrillation, I would be inclined to put her on antiarrhythmic drug. (2) Cardiomyopathy Status: Acute Assessment & Plan: She has previous severe cardiomyopathy but her ejection fraction was normal on today's echocardiogram. Continue carvedilol and lisinopril. (3) Primary hypertension Status: Chronic Assessment & Plan: Blood pressure is well controlled on carvedilol and lisinopril. As above, I will increase the dose of carvedilol and wean off the diltiazem. We will have to watch her blood pressure closely on the higher dose of carvedilol. If this medication is lowering her blood pressure too much, then I may switch her over to metoprolol succinate which would be less likely to cause hypotension as opposed to carvedilol. (4) Mixed hyperlipidemia Status: Chronic Assessment & Plan: Resume statin medication. (5) Stage 3 chronic kidney disease Assessment & Plan: This could be a relative contraindication to using sotalol as an antiarrhythmic drug. We will reassess in the morning. (6) Morbid obesity Status: Chronic Assessment & Plan: She needs to work on weight loss. Problem Qualifiers (1) Cardiomyopathy: Cardiomyopathy type: unspecified Qualified Codes: I42.9 - Cardiomyopathy, unspecified (2) Stage 3 chronic kidney disease: Chronic kidney disease stage 3 subtype: stage 3b (GFR 30-44) Qualified Codes: N18.32 - Chronic kidney disease, stage 3b MARBIN VALLEJO JR, MD Nov 21, 2021 19:34
[2021-11-22 05:22] LABS: BASOPHILS % (AUTO) 1 % (0-10); EOSINOPHILS # (AUTO) 0.3 10^3/uL (0.0-0.3); EOSINOPHILS % (AUTO) 4 % (0-10); HEMATOCRIT 41 % (35-52); LYMPHOCYTES % (AUTO) 15 % (12-44); MEAN CORPUSCULAR HEMOGLOBIN 30 pg (25-34); MEAN CORPUSCULAR HGB CONC 32 g/dL (32-36); MEAN CORPUSCULAR VOLUME 94 fL (80-99); MEAN PLATELET VOLUME 12.1 fL (9.0-12.2); MONOCYTES # (AUTO) 0.4 10^3/uL (0.0-1.0); MONOCYTES % (AUTO) 6 % (0-12); NEUTROPHILS # (AUTO) 4.8 10^3/uL (1.8-7.8); NEUTROPHILS % (AUTO) 74 % (42-75); PLATELET COUNT 132 10^3/uL (130-400); WHITE BLOOD COUNT 6.5 10^3/uL (4.3-11.0)
[2021-11-22 05:36] LABS: ALBUMIN 3.6 GM/DL (3.2-4.5); CHLORIDE 105 MMOL/L (98-107); SODIUM 140 MMOL/L (135-145)
[2021-11-22 05:37] LABS: CALCIUM 8.9 MG/DL (8.5-10.1)
[2021-11-22 05:38] LABS: GLUCOSE 135 MG/DL (70-105); TOTAL PROTEIN 6.4 GM/DL (6.4-8.2)
[2021-11-22 05:39] LABS: CARBON DIOXIDE 24 MMOL/L (21-32)
[2021-11-22 05:40] LABS: BILIRUBIN,TOTAL 1.1 MG/DL (0.1-1.0)
[2021-11-22 05:42] LABS: ALKALINE PHOSPHATASE 43 U/L (40-136); GFR ESTIMATED 41; PHOSPHORUS 3.8 MG/DL (2.3-4.7)
[2021-11-22 05:43] LABS: BUN/CREATININE RATIO 17
[2021-11-22 05:44] LABS: MAGNESIUM 1.9 MG/DL (1.6-2.4)
[2021-11-22 05:45] LABS: ALANINE AMINOTRANSFERASE 8 U/L (0-55)
[2021-11-22] MEDS: inSUlin ASPART (NovoLOG) 1 UNIT/0.01 ML (CHARGE PER UNIT) SC SCH ×4 (06:01→21:00)
[2021-11-22] MEDS: APIXABAN 5 MG (ELIQUIS) TABLET PO SCH ×2 (07:54→20:36)
[2021-11-22] MEDS: lisINopril 10 MG (PRINIVIL) TABLET PO SCH (07:54)
[2021-11-22] MEDS: LEVOTHYROXINE 125 MCG (LEVOTHROID) TABLET PO SCH (07:54)
[2021-11-22] MEDS: PARoxetine 20 MG (PAXIL) TAB PO SCH (07:54)
[2021-11-22] MEDS: CATHETER FLUSH 10 ML SYR IV SCH ×3 (07:55→20:36)
--- NOTE | 2021-11-22 09:37 | Diagnostic Imaging Report ---
EXAMINATION: Portable erect AP chest at 9:09 AM. INDICATION: Hypoxia. FINDINGS: The cardiomegaly noted on the prior exam of 11/21/2021 is again evident. The heart does seem somewhat less prominent than on the prior study, however. The central pulmonary vascularity and the interstitial densities are not quite as striking either. However, there has been some increase in the atelectasis/infiltrate and fluid involving the right lung base. The left lower lobe atelectasis/infiltrate and fluid may also be slightly greater. The mediastinum is not widened. The osseous structures are intact. The left-sided defibrillator device and the bilateral total shoulder prostheses noted previously are again evident. IMPRESSION: There are mixed results. The heart does seem smaller than on the prior exam and there appears to be less pulmonary congestion; however, there is somewhat greater involvement of both lung bases by atelectasis/infiltrate and fluid. Dictated by: Dictated on workstation # [id number]
[2021-11-22] MEDS ORDERED: FUROSEMIDE 40 MG/4 ML INJ (LASIX) IVP ONE (10:00)
--- NOTE | 2021-11-22 17:43 | Cardiology Progress Note ---
Progress Note-Cardiology Events since last exam Date Seen by Provider: Nov 22, 2021 Time Seen by Provider: 17:37 Events since last exam I am following her due to atrial fibrillation and previous cardiomyopathy. She remains in the intensive care unit on 7 L of oxygen by nasal cannula. She does feel like her breathing has improved somewhat. She denies chest discomfort, palpitations, syncope, or ankle edema. Certain portions of this document may have been dictated utilizing voice recognition technology. Inherent to this technology, typographical and grammatical errors may exist. As much as I am diligent to identify and correct these mistakes, some errors may remain in the document. Vitals Last set of Vitals Signs Vital Signs 11/22/21 11/22/21 11/22/21 11/22/21 13:00 15:00 15:41 15:46 Temp 36.3 Pulse 98 Resp 13 B/P (MAP) 119/88 Pulse Ox 93 O2 Delivery High Flow N/C O2 Flow Rate 7.00 Labs Labs Laboratory Tests 11/22/21 04:21 Exam Vital Signs Vital Signs Date Time Temp Pulse Resp B/P (MAP) Pulse Ox O2 Delivery O2 Flow Rate FiO2 11/22/21 15:46 High Flow N/C 7.00 11/22/21 15:41 36.3 11/22/21 15:00 98 13 93 Physical Exam General: Alert. No acute distress. She is morbidly obese. Eye: No xanthelasma. HENT: Normocephalic. Neck: Jugular venous pressure does not appear elevated. Respiratory: Lungs are clear to auscultation but decreased breath sounds at the bases bilaterally. Respirations are non-labored. Breath sounds are equal. Symmetrical chest wall expansion. Cardiovascular: Normal rate. Irregular rhythm. No murmur. No gallop. No edema. Gastrointestinal: Soft. Normal bowel sounds. Skin: Warm. Dry. Neurologic: Alert and oriented to person, place, time. Cranial nerves 3-11 grossly intact. Psychiatric: Cooperative. Appropriate mood & affect. Labs Laboratory Tests Test 11/21/21 20:31 11/22/21 04:21 11/22/21 10:46 11/22/21 15:25 Range/Units Glucometer 263 H 229 H 222 H 70-110 MG/DL White Blood Count 6.5 4.3-11.0 10^3/uL Red Blood Count 4.36 3.80-5.11 10^6/uL Hemoglobin 13.0 11.5-16.0 g/dL Hematocrit 41 35-52 % Mean Corpuscular Volume 94 80-99 fL Mean Corpuscular Hemoglobin 30 25-34 pg Mean Corpuscular Hemoglobin Concent 32 32-36 g/dL Red Cell Distribution Width 13.9 10.0-14.5 % Platelet Count 132 130-400 10^3/uL Mean Platelet Volume 12.1 9.0-12.2 fL Immature Granulocyte % (Auto) 0 % Neutrophils (%) (Auto) 74 42-75 % Lymphocytes (%) (Auto) 15 12-44 % Monocytes (%) (Auto) 6 0-12 % Eosinophils (%) (Auto) 4 0-10 % Basophils (%) (Auto) 1 0-10 % Neutrophils # (Auto) 4.8 1.8-7.8 10^3/uL Lymphocytes # (Auto) 1.0 1.0-4.0 10^3/uL Monocytes # (Auto) 0.4 0.0-1.0 10^3/uL Eosinophils # (Auto) 0.3 0.0-0.3 10^3/uL Basophils # (Auto) 0.0 0.0-0.1 10^3/uL Immature Granulocyte # (Auto) 0.0 0.0-0.1 10^3/uL Sodium Level 140 135-145 MMOL/L Potassium Level 4.0 3.6-5.0 MMOL/L Chloride Level 105 98-107 MMOL/L Carbon Dioxide Level 24 21-32 MMOL/L Anion Gap 11 5-14 MMOL/L Blood Urea Nitrogen 22 H 7-18 MG/DL Creatinine 1.30 0.60-1.30 MG/DL Estimat Glomerular Filtration Rate 41 BUN/Creatinine Ratio 17 Glucose Level 135 H 70-105 MG/DL Calcium Level 8.9 8.5-10.1 MG/DL Corrected Calcium 9.2 8.5-10.1 MG/DL Phosphorus Level 3.8 2.3-4.7 MG/DL Magnesium Level 1.9 1.6-2.4 MG/DL Total Bilirubin 1.1 H 0.1-1.0 MG/DL Aspartate Amino Transf (AST/SGOT) 11 5-34 U/L Alanine Aminotransferase (ALT/SGPT) 8 0-55 U/L Alkaline Phosphatase 43 40-136 U/L Troponin I < 0.028 <0.028 NG/ML Total Protein 6.4 6.4-8.2 GM/DL Albumin 3.6 3.2-4.5 GM/DL Diagnosis/Problems Diagnosis/Problems (1) Paroxysmal atrial fibrillation Assessment & Plan: She remains in atrial fibrillation on intravenous diltiazem. She has been getting her carvedilol that she takes at home. I did previously increase the dose of carvedilol. We will continue apixaban which she was taking for stroke prophylaxis. She may have missed 1 or 2 doses over the past few weeks but otherwise has been compliant with the apixaban. She had been on amiodarone in the past and this was discontinued. She has normal atrial size which means she has probably not had atrial fibrillation for a long time. I will start her on sotalol. We may need to adjust the dose due to her renal function. I have asked pharmacy to double check the appropriate dosing. (2) Cardiomyopathy Status: Acute Assessment & Plan: She has previous severe cardiomyopathy but her ejection fraction was normal on her echocardiogram from this admission. Continue carvedilol and lisinopril. We may need to adjust the carvedilol since I am starting her on sotalol. (3) Acute on chronic heart failure with preserved ejection fraction (HFpEF) Assessment & Plan: She may have some degree of pulmonary congestion on her chest x-ray for today. She was given 1 dose of intravenous Lasix. I will obtain a follow-up chest x-ray in the morning. (4) Primary hypertension Status: Chronic Assessment & Plan: Blood pressure is well controlled on carvedilol and lisinopril. (5) Mixed hyperlipidemia Status: Chronic Assessment & Plan: Continue statin medication. (6) Stage 3 chronic kidney disease Assessment & Plan: I will start her on sotalol and adjust the dose according to her GFR. (7) Morbid obesity Status: Chronic Assessment & Plan: She needs to work on weight loss. Problem Qualifiers (1) Cardiomyopathy: Cardiomyopathy type: unspecified Qualified Codes: I42.9 - Cardiomyopathy, unspecified (2) Stage 3 chronic kidney disease: Chronic kidney disease stage 3 subtype: stage 3b (GFR 30-44) Qualified Codes: N18.32 - Chronic kidney disease, stage 3b MARBIN VALLEJO JR, MD Nov 22, 2021 17:43
--- NOTE | 2021-11-22 18:09 | Progress Note - Hospitalist ---
Subjective HPI/CC On Admission Date Seen by Provider: Nov 22, 2021 Time Seen by Provider: 09:25 Elsa Kebede is a 71 year old female with PMH HTN, T2DM, HLD, JOVANI on CPAP with nocturnal oxygen, hypothyroidism, heart failure with reduced ejection fraction, pacemaker/AICD, atrial fibrillation, who presented with chest pressure. She is still having some chest pain on my exam. She denies any radiation of the pain. She has associated shortness of breath. She denies diaphoresis. She denies nausea and vomiting. She denies fevers, chills, cough, abdominal pain, and diarrhea. Subjective/Events-last exam She is doing well. She is up brushing her teeth. She does not feel short of breath. She says they had to turn her oxygen up overnight. She denies cough. She denies chest pain and palpitations. Objective Exam Vital Signs Vital Signs Date Time Temp Pulse Resp B/P (MAP) Pulse Ox O2 Delivery O2 Flow Rate FiO2 11/22/21 15:46 High Flow N/C 7.00 11/22/21 15:41 36.3 11/22/21 15:00 98 13 93 Capillary Refill : Less Than 3 Seconds General Appearance: No Apparent Distress, Obese Respiratory: Lungs Clear, Normal Breath Sounds, No Respiratory Distress Cardiovascular: No Murmur, Irregularly Irregular Gastrointestinal: Normal Bowel Sounds, Non Tender, Soft Extremity: Normal Inspection, Non Tender, No Pedal Edema Neurologic/Psychiatric: Alert, Oriented x3, No Motor/Sensory Deficits, Normal Mood/Affect Skin: Normal Color, Warm/Dry Results/Procedures Lab Laboratory Tests 11/22/21 04:21 Patient resulted labs reviewed. Imaging: Reviewed Imaging Report Assessment/Plan Assessment and Plan Assess & Plan/Chief Complaint AFib with RVR Cardizem gtt off this morning Coreg Eliquis Cardiology following Acute on chronic respiratory failure with hypoxia JOVANI Continue CPAP at night Supplemental oxygen increased IV Lasix WBC normal, no fevers Repeat procalcitonin T2DM Levemir Sliding scale insulin HFpEF NICM HTN HLD Hypothyroidism CKD 3b Morbid obesity DVT prophylaxis: already receiving therapeutic anticoagulation Chest pain, resolved Diagnosis/Problems Diagnosis/Problems (1) Atrial fibrillation with RVR Status: Acute (2) Diastolic heart failure Status: Acute Qualifiers: Heart failure chronicity: acute on chronic Qualified Codes: I50.33 - Acute on chronic diastolic (congestive) heart failure (3) Cardiomyopathy Status: Acute Qualifiers: Cardiomyopathy type: unspecified Qualified Codes: I42.9 - Cardiomyopathy, unspecified (4) Primary hypertension Status: Chronic (5) Mixed hyperlipidemia Status: Chronic (6) Morbid obesity Status: Chronic (7) Type 2 diabetes mellitus with complication Status: Acute (8) Stage 3 chronic kidney disease Qualifiers: Chronic kidney disease stage 3 subtype: stage 3b (GFR 30-44) Qualified Codes: N18.32 - Chronic kidney disease, stage 3b KAILEY CEVALLOS MD Nov 22, 2021 18:09
[2021-11-22] MEDS: SOTALOL 80 MG (BETAPACE) TAB PO SCH (18:29)
[2021-11-22] MEDS: dilTIAZem DRIP PRE-MIX 125 ML IV SCH (22:30)
[2021-11-23 04:42] LABS: HEMOGLOBIN 13.5 g/dL (11.5-16.0)
[2021-11-23 04:43] LABS: BASOPHILS % (AUTO) 1 % (0-10); EOSINOPHILS # (AUTO) 0.3 10^3/uL (0.0-0.3); EOSINOPHILS % (AUTO) 6 % (0-10); HEMATOCRIT 42 % (35-52); LYMPHOCYTES % (AUTO) 16 % (12-44); MEAN CORPUSCULAR HEMOGLOBIN 30 pg (25-34); MEAN CORPUSCULAR HGB CONC 33 g/dL (32-36); MEAN CORPUSCULAR VOLUME 93 fL (80-99); MEAN PLATELET VOLUME 11.4 fL (9.0-12.2); MONOCYTES # (AUTO) 0.4 10^3/uL (0.0-1.0); MONOCYTES % (AUTO) 7 % (0-12); NEUTROPHILS # (AUTO) 4.4 10^3/uL (1.8-7.8); NEUTROPHILS % (AUTO) 71 % (42-75); PLATELET COUNT 126 10^3/uL (130-400); WHITE BLOOD COUNT 6.2 10^3/uL (4.3-11.0)
[2021-11-23 04:53] LABS: ALBUMIN 3.5 GM/DL (3.2-4.5)
[2021-11-23 04:54] LABS: CALCIUM 8.9 MG/DL (8.5-10.1)
[2021-11-23 04:55] LABS: TOTAL PROTEIN 6.2 GM/DL (6.4-8.2)
[2021-11-23 04:57] LABS: BILIRUBIN,TOTAL 1.1 MG/DL (0.1-1.0)
[2021-11-23 04:59] LABS: CREATININE SERUM 1.28 MG/DL (0.60-1.30); PHOSPHORUS 3.4 MG/DL (2.3-4.7)
[2021-11-23 05:02] LABS: MAGNESIUM 1.8 MG/DL (1.6-2.4)
[2021-11-23] MEDS: inSUlin ASPART (NovoLOG) 1 UNIT/0.01 ML (CHARGE PER UNIT) SC SCH ×4 (05:07→20:46)
[2021-11-23] MEDS: CATHETER FLUSH 10 ML SYR IV SCH ×3 (05:31→20:47)
[2021-11-23] MEDS: LEVOTHYROXINE 125 MCG (LEVOTHROID) TABLET PO SCH (05:31)
--- NOTE | 2021-11-23 05:51 | Diagnostic Imaging Report ---
Indication: Shortness of breath Portable chest 5:35 AM Heart size and pulmonary vascularity are within normal limits. There is a dual-chamber pacemaker. There are some faint infiltrate in the right lung. Left lung is clear. There are no effusions or pneumothoraces. IMPRESSION: Patchy infiltrate right lung suspicious for pneumonia. Dictated by: Dictated on workstation # [id number]
[2021-11-23] MEDS ORDERED: FUROSEMIDE 40 MG/4 ML INJ (LASIX) ONE (08:16)
[2021-11-23] MEDS ORDERED: FUROSEMIDE 40 MG/4 ML INJ (LASIX) IVP NR (08:20)
[2021-11-23] MEDS: APIXABAN 5 MG (ELIQUIS) TABLET PO SCH ×2 (08:43→20:46)
[2021-11-23] MEDS: SOTALOL 80 MG (BETAPACE) TAB PO SCH (08:43)
[2021-11-23] MEDS: PARoxetine 20 MG (PAXIL) TAB PO SCH (08:44)
[2021-11-23] MEDS: lisINopril 10 MG (PRINIVIL) TABLET PO SCH (08:44)
--- NOTE | 2021-11-23 10:47 | Cardiology Progress Note ---
Progress Note-Cardiology Events since last exam Date Seen by Provider: Nov 23, 2021 Time Seen by Provider: 10:45 Events since last exam I am following her due to atrial fibrillation. She remains in the intensive care unit due to hypoxia. She denies chest discomfort, dyspnea at rest, palpitations, syncope, or ankle edema. She has received one dose of sotalol last evening. Certain portions of this document may have been dictated utilizing voice recognition technology. Inherent to this technology, typographical and grammatical errors may exist. As much as I am diligent to identify and correct these mistakes, some errors may remain in the document. Vitals Last set of Vitals Signs Vital Signs 11/23/21 11/23/21 11/23/21 11/23/21 07:54 10:00 12:01 12:10 Temp 37.1 Pulse 101 Resp 11 B/P (MAP) 98/71 Pulse Ox 94 O2 Delivery High Flow N/C O2 Flow Rate 5.00 Labs Labs Laboratory Tests 11/23/21 04:32 Exam Vital Signs Vital Signs Date Time Temp Pulse Resp B/P (MAP) Pulse Ox O2 Delivery O2 Flow Rate FiO2 11/23/21 12:10 High Flow N/C 5.00 11/23/21 12:01 101 11/23/21 10:00 11 98/71 94 11/23/21 07:54 37.1 Physical Exam General: Alert. No acute distress. She is morbidly obese. Eye: No xanthelasma. HENT: Normocephalic. Neck: Jugular venous pressure does not appear elevated. Respiratory: Lungs are clear to auscultation. Respirations are non-labored. Breath sounds are equal. Symmetrical chest wall expansion. Cardiovascular: Tachycardia with irregular rhythm. Distant S1/S2. No murmur. No gallop. No edema. Gastrointestinal: Soft. Normal bowel sounds. Skin: Warm. Dry. Neurologic: Alert and oriented to person, place, time. Cranial nerves 3-11 grossly intact. Psychiatric: Cooperative. Appropriate mood & affect. Labs Laboratory Tests Test 11/22/21 15:25 11/22/21 20:14 11/23/21 04:32 11/23/21 10:28 Range/Units Glucometer 222 H 158 H 229 H 70-110 MG/DL White Blood Count 6.2 4.3-11.0 10^3/uL Red Blood Count 4.47 3.80-5.11 10^6/uL Hemoglobin 13.5 11.5-16.0 g/dL Hematocrit 42 35-52 % Mean Corpuscular Volume 93 80-99 fL Mean Corpuscular Hemoglobin 30 25-34 pg Mean Corpuscular Hemoglobin Concent 33 32-36 g/dL Red Cell Distribution Width 13.6 10.0-14.5 % Platelet Count 126 L 130-400 10^3/uL Mean Platelet Volume 11.4 9.0-12.2 fL Immature Granulocyte % (Auto) 0 % Neutrophils (%) (Auto) 71 42-75 % Lymphocytes (%) (Auto) 16 12-44 % Monocytes (%) (Auto) 7 0-12 % Eosinophils (%) (Auto) 6 0-10 % Basophils (%) (Auto) 1 0-10 % Neutrophils # (Auto) 4.4 1.8-7.8 10^3/uL Lymphocytes # (Auto) 1.0 1.0-4.0 10^3/uL Monocytes # (Auto) 0.4 0.0-1.0 10^3/uL Eosinophils # (Auto) 0.3 0.0-0.3 10^3/uL Basophils # (Auto) 0.0 0.0-0.1 10^3/uL Immature Granulocyte # (Auto) 0.0 0.0-0.1 10^3/uL Percent Immature Platelet Fraction 4.0 0.0-7.6 % Sodium Level 138 135-145 MMOL/L Potassium Level 4.0 3.6-5.0 MMOL/L Chloride Level 103 98-107 MMOL/L Carbon Dioxide Level 26 21-32 MMOL/L Anion Gap 9 5-14 MMOL/L Blood Urea Nitrogen 21 H 7-18 MG/DL Creatinine 1.28 0.60-1.30 MG/DL Estimat Glomerular Filtration Rate 41 BUN/Creatinine Ratio 16 Glucose Level 140 H 70-105 MG/DL Calcium Level 8.9 8.5-10.1 MG/DL Corrected Calcium 9.3 8.5-10.1 MG/DL Phosphorus Level 3.4 2.3-4.7 MG/DL Magnesium Level 1.8 1.6-2.4 MG/DL Total Bilirubin 1.1 H 0.1-1.0 MG/DL Aspartate Amino Transf (AST/SGOT) 10 5-34 U/L Alanine Aminotransferase (ALT/SGPT) 10 0-55 U/L Alkaline Phosphatase 44 40-136 U/L Total Protein 6.2 L 6.4-8.2 GM/DL Albumin 3.5 3.2-4.5 GM/DL Diagnosis/Problems Diagnosis/Problems (1) Persistent atrial fibrillation Assessment & Plan: She remains in atrial fibrillation on sotalol. She is also on carvedilol for rate control. Blood pressures have been reasonable. We will continue apixaban which she was taking for stroke prophylaxis. If she remains in atrial fibrillation tomorrow, I will plan on a cardioversion. If her oxygenation improves, she may be able to be discharged home tomorrow. (2) Cardiomyopathy Status: Acute Assessment & Plan: She had a previous severe cardiomyopathy but her ejection fraction was normal on her echocardiogram from this admission. Continue carvedilol and lisinopril. We may need to adjust the carvedilol since I am starting her on sotalol. (3) Acute on chronic heart failure with preserved ejection fraction (HFpEF) Assessment & Plan: She may have some degree of pulmonary congestion on her chest x-ray on admission. She was given 1 dose of intravenous Lasix. 2 days chest x-ray was read out as suspicious for pneumonia. (4) Primary hypertension Status: Chronic Assessment & Plan: Blood pressure is well controlled on carvedilol and lisinopril. We will need watch her blood pressures closely with the addition of sotalol which does have some antihypertensive effect. (5) Mixed hyperlipidemia Status: Chronic Assessment & Plan: Continue statin medication. (6) Stage 3 chronic kidney disease Assessment & Plan: She is on once daily dosing of sotalol due to the depressed renal function. (7) Morbid obesity Status: Chronic Assessment & Plan: She needs to work on weight loss. If she remains this heavy, that will increase the risk of recurrent atrial fibrillation Problem Qualifiers (1) Cardiomyopathy: Cardiomyopathy type: unspecified Qualified Codes: I42.9 - Cardiomyopathy, unspecified (2) Stage 3 chronic kidney disease: Chronic kidney disease stage 3 subtype: stage 3b (GFR 30-44) Qualified Codes: N18.32 - Chronic kidney disease, stage 3b MARBIN VALLEJO JR, MD Nov 23, 2021 10:47
--- NOTE | 2021-11-23 19:41 | Progress Note - Hospitalist ---
Subjective HPI/CC On Admission Date Seen by Provider: Nov 23, 2021 Time Seen by Provider: 10:00 Elsa Kebede is a 71 year old female with PMH HTN, T2DM, HLD, JOVANI on CPAP with nocturnal oxygen, hypothyroidism, heart failure with reduced ejection fraction, pacemaker/AICD, atrial fibrillation, who presented with chest pressure. She is still having some chest pain on my exam. She denies any radiation of the pain. She has associated shortness of breath. She denies diaphoresis. She denies nausea and vomiting. She denies fevers, chills, cough, abdominal pain, and diarrhea. Subjective/Events-last exam She reports some shortness of breath. She reports some dyspnea with exertion. She is not having any pain. Objective Exam Vital Signs Vital Signs Date Time Temp Pulse Resp B/P (MAP) Pulse Ox O2 Delivery O2 Flow Rate FiO2 11/23/21 19:33 36.4 11/23/21 18:00 99 20 101/73 87 High Flow N/C 7.00 Capillary Refill : Less Than 3 Seconds General Appearance: No Apparent Distress, Chronically ill, Obese Respiratory: Lungs Clear, Normal Breath Sounds, No Respiratory Distress Cardiovascular: Irregularly Irregular, Tachycardia Gastrointestinal: Normal Bowel Sounds, Soft Extremity: Normal Inspection, No Pedal Edema Neurologic/Psychiatric: Alert, Oriented x3, No Motor/Sensory Deficits Skin: Normal Color, Warm/Dry Results/Procedures Lab Laboratory Tests 11/23/21 04:32 Patient resulted labs reviewed. Imaging: Reviewed Imaging Report Assessment/Plan Assessment and Plan Assess & Plan/Chief Complaint AFib with RVR Started on Sotalol Eliquis Cardiology following Acute on chronic respiratory failure with hypoxia HFpEF JOVANI Continue CPAP at night Supplemental oxygen increased Continue IV Lasix T2DM Levemir Sliding scale insulin NICM HTN HLD Hypothyroidism CKD 3b Morbid obesity DVT prophylaxis: already receiving therapeutic anticoagulation Chest pain, resolved Diagnosis/Problems Diagnosis/Problems (1) Atrial fibrillation with RVR Status: Acute (2) Diastolic heart failure Status: Acute Qualifiers: Heart failure chronicity: acute on chronic Qualified Codes: I50.33 - Acute on chronic diastolic (congestive) heart failure (3) Cardiomyopathy Status: Acute Qualifiers: Cardiomyopathy type: unspecified Qualified Codes: I42.9 - Cardiomyopathy, unspecified (4) Primary hypertension Status: Chronic (5) Mixed hyperlipidemia Status: Chronic (6) Morbid obesity Status: Chronic (7) Type 2 diabetes mellitus with complication Status: Acute (8) Stage 3 chronic kidney disease Qualifiers: Chronic kidney disease stage 3 subtype: stage 3b (GFR 30-44) Qualified Codes: N18.32 - Chronic kidney disease, stage 3b KAILEY CEVALLOS MD Nov 23, 2021 19:41
[2021-11-23] MEDS: dilTIAZem DRIP PRE-MIX 125 ML IV SCH (23:04)
[2021-11-24 04:41] LABS: BASOPHILS % (AUTO) 1 % (0-10)
[2021-11-24 04:43] LABS: EOSINOPHILS # (AUTO) 0.3 10^3/uL (0.0-0.3); EOSINOPHILS % (AUTO) 5 % (0-10); HEMATOCRIT 44 % (35-52); HEMOGLOBIN 14.4 g/dL (11.5-16.0); LYMPHOCYTES # (AUTO) 1.1 10^3/uL (1.0-4.0); LYMPHOCYTES % (AUTO) 19 % (12-44); MEAN CORPUSCULAR HEMOGLOBIN 30 pg (25-34); MEAN CORPUSCULAR HGB CONC 33 g/dL (32-36); MEAN CORPUSCULAR VOLUME 92 fL (80-99); MEAN PLATELET VOLUME 11.7 fL (9.0-12.2); MONOCYTES # (AUTO) 0.5 10^3/uL (0.0-1.0); MONOCYTES % (AUTO) 8 % (0-12); NEUTROPHILS # (AUTO) 4.1 10^3/uL (1.8-7.8); NEUTROPHILS % (AUTO) 68 % (42-75); PLATELET COUNT 122 10^3/uL (130-400); WHITE BLOOD COUNT 6.1 10^3/uL (4.3-11.0)
[2021-11-24 04:45] LABS: ALBUMIN 3.6 GM/DL (3.2-4.5); POTASSIUM 3.9 MMOL/L (3.6-5.0)
[2021-11-24 04:46] LABS: CALCIUM 9.2 MG/DL (8.5-10.1)
[2021-11-24 04:47] LABS: TOTAL PROTEIN 6.5 GM/DL (6.4-8.2)
[2021-11-24 04:49] LABS: BILIRUBIN,TOTAL 0.8 MG/DL (0.1-1.0)
[2021-11-24 04:51] LABS: CREATININE SERUM 1.31 MG/DL (0.60-1.30); PHOSPHORUS 3.7 MG/DL (2.3-4.7)
[2021-11-24 04:54] LABS: MAGNESIUM 1.8 MG/DL (1.6-2.4)
[2021-11-24] MEDS: inSUlin ASPART (NovoLOG) 1 UNIT/0.01 ML (CHARGE PER UNIT) SC SCH ×2 (05:55→14:31)
[2021-11-24] MEDS: CATHETER FLUSH 10 ML SYR IV SCH ×2 (05:55→14:31)
[2021-11-24] MEDS: LEVOTHYROXINE 125 MCG (LEVOTHROID) TABLET PO SCH (05:55)
[2021-11-24] MEDS ORDERED: FUROSEMIDE 40 MG/4 ML INJ (LASIX) IVP ONE (07:30)
--- NOTE | 2021-11-24 10:09 | Cardiology Progress Note ---
Progress Note-Cardiology Events since last exam Date Seen by Provider: Nov 24, 2021 Time Seen by Provider: 10:08 Events since last exam I am following her due to atrial fibrillation. She remains in atrial fibrill ation. QTc is now 575 ms after 2 doses of Sotalol. This will need to be stopped. Her chest discomfort and dyspnea have improved. She denies palpitations, syncope, or ankle edema. She wants to go home. Certain portions of this document may have been dictated utilizing voice recognition technology. Inherent to this technology, typographical and grammatical errors may exist. As much as I am diligent to identify and correct these mistakes, some errors may remain in the document. Vitals Last set of Vitals Signs Vital Signs 11/24/21 11/24/21 14:00 16:00 Temp 36.2 Pulse 67 Resp 8 B/P (MAP) 117/62 Pulse Ox 96 O2 Delivery High Flow N/C O2 Flow Rate 7.00 Labs Labs Laboratory Tests 11/24/21 04:14 Exam Vital Signs Vital Signs Date Time Temp Pulse Resp B/P (MAP) Pulse Ox O2 Delivery O2 Flow Rate FiO2 11/24/21 16:00 36.2 11/24/21 14:44 11/24/21 14:00 67 8 96 High Flow N/C 7.00 Physical Exam General: Alert. No acute distress. She is morbidly obese. Eye: No xanthelasma. HENT: Normocephalic. Neck: Jugular venous pressure does not appear elevated. Respiratory: Lungs are clear to auscultation. Respirations are non-labored. Breath sounds are equal. Symmetrical chest wall expansion. Cardiovascular: Tachycardia with irregular rhythm. Distant S1/S2. No murmur. No gallop. No edema. Gastrointestinal: Soft. Normal bowel sounds. Skin: Warm. Dry. Neurologic: Alert and oriented to person, place, time. Cranial nerves 3-11 grossly intact. Psychiatric: Cooperative. Appropriate mood & affect. Labs Laboratory Tests Test 11/23/21 20:09 11/24/21 04:14 11/24/21 10:42 11/24/21 15:43 Range/Units Glucometer 184 H 151 H 231 H 70-110 MG/DL White Blood Count 6.1 4.3-11.0 10^3/uL Red Blood Count 4.81 3.80-5.11 10^6/uL Hemoglobin 14.4 11.5-16.0 g/dL Hematocrit 44 35-52 % Mean Corpuscular Volume 92 80-99 fL Mean Corpuscular Hemoglobin 30 25-34 pg Mean Corpuscular Hemoglobin Concent 33 32-36 g/dL Red Cell Distribution Width 13.5 10.0-14.5 % Platelet Count 122 L 130-400 10^3/uL Mean Platelet Volume 11.7 9.0-12.2 fL Immature Granulocyte % (Auto) 0 % Neutrophils (%) (Auto) 68 42-75 % Lymphocytes (%) (Auto) 19 12-44 % Monocytes (%) (Auto) 8 0-12 % Eosinophils (%) (Auto) 5 0-10 % Basophils (%) (Auto) 1 0-10 % Neutrophils # (Auto) 4.1 1.8-7.8 10^3/uL Lymphocytes # (Auto) 1.1 1.0-4.0 10^3/uL Monocytes # (Auto) 0.5 0.0-1.0 10^3/uL Eosinophils # (Auto) 0.3 0.0-0.3 10^3/uL Basophils # (Auto) 0.0 0.0-0.1 10^3/uL Immature Granulocyte # (Auto) 0.0 0.0-0.1 10^3/uL Percent Immature Platelet Fraction 3.9 0.0-7.6 % Sodium Level 140 135-145 MMOL/L Potassium Level 3.9 3.6-5.0 MMOL/L Chloride Level 102 98-107 MMOL/L Carbon Dioxide Level 25 21-32 MMOL/L Anion Gap 13 5-14 MMOL/L Blood Urea Nitrogen 26 H 7-18 MG/DL Creatinine 1.31 H 0.60-1.30 MG/DL Estimat Glomerular Filtration Rate 40 BUN/Creatinine Ratio 20 Glucose Level 119 H 70-105 MG/DL Calcium Level 9.2 8.5-10.1 MG/DL Corrected Calcium 9.5 8.5-10.1 MG/DL Phosphorus Level 3.7 2.3-4.7 MG/DL Magnesium Level 1.8 1.6-2.4 MG/DL Total Bilirubin 0.8 0.1-1.0 MG/DL Aspartate Amino Transf (AST/SGOT) 14 5-34 U/L Alanine Aminotransferase (ALT/SGPT) 13 0-55 U/L Alkaline Phosphatase 44 40-136 U/L Total Protein 6.5 6.4-8.2 GM/DL Albumin 3.6 3.2-4.5 GM/DL Diagnosis/Problems Diagnosis/Problems (1) Persistent atrial fibrillation Assessment & Plan: She remained in atrial fibrillation on sotalol. She is also on carvedilol for rate control. Blood pressures have been reasonable. We will continue apixaban which she was taking for stroke prophylaxis. Her QTc is now prolonged. As such, I stopped the sotalol. Her atrial sizes are normal which suggest that she has not had prolonged atrial fibrillation. I performed a cardioversion which was successful. She can now be discharged home. We will consider alternative antiarrhythmic drugs as an outpatient if needed. (2) Cardiomyopathy Status: Acute Assessment & Plan: She had a previous severe cardiomyopathy but her ejection fraction was normal on her echocardiogram from this admission. Continue carvedilol and lisinopril. (3) Acute on chronic heart failure with preserved ejection fraction (HFpEF) Assessment & Plan: She may have some degree of pulmonary congestion on her chest x-ray on admission. She was given 1 dose of intravenous Lasix and her breathing had improved. Continue carvedilol and lisinopril. (4) Primary hypertension Status: Chronic Assessment & Plan: Blood pressure is well controlled on carvedilol and lisinopril. (5) Mixed hyperlipidemia Status: Chronic Assessment & Plan: Continue statin medication. (6) Stage 3 chronic kidney disease Assessment & Plan: This will need to be followed longitudinally. (7) Morbid obesity Status: Chronic Assessment & Plan: She needs to work on weight loss. If she remains this heavy, that will increase the risk of recurrent atrial fibrillation Problem Qualifiers (1) Cardiomyopathy: Cardiomyopathy type: unspecified Qualified Codes: I42.9 - Cardiomyopathy, unspecified (2) Stage 3 chronic kidney disease: Chronic kidney disease stage 3 subtype: stage 3b (GFR 30-44) Qualified Codes: N18.32 - Chronic kidney disease, stage 3b MARBIN VALLEJO JR, MD Nov 24, 2021 10:09
[2021-11-24] MEDS ORDERED: MIDAZOLAM 5 MG/5 ML (VERSED) VIAL ONE (10:17)
[2021-11-24] MEDS ORDERED: proPOfol 200 MG/20 ML (DIPRIVAN) VIAL IV ONE ×2 (10:18→11:43)
[2021-11-24] MEDS ORDERED: NS IV 500 ML 500 ML ONE (10:18)
--- NOTE | 2021-11-24 10:38 | Cardiac Procedure Note ---
Cardiology Procedures Date of Procedure 11/24/2021 DIRECT-CURRENT CARDIOVERSION INDICATION: Persistent atrial fibrillation PROCEDURE: After informed consent and in the fasting state, deep sedation was provided by the anesthesia department. I subsequently performed direct-current cardioversion with 1 synchronized, biphasic shock at 150 J with successful conversion of atrial fibrillation to sinus rhythm with intermittent atrial and ventricular pacing. IMPRESSION: 1. Status post successful direct-current cardioversion with 1 synchronized biphasic shock at 150 J with successful conversion of atrial fibrillation to sinus rhythm with intermittent atrial and ventricular pacing. Certain portions of this document may have been dictated utilizing voice recognition technology. Inherent to this technology, typographical and grammatical errors may exist. As much as I am diligent to identify and correct these mistakes, some errors may remain in the document. MARBIN VALLEJO JR, MD Nov 24, 2021 10:38
--- NOTE | 2021-11-24 11:42 | Anesthesia-General Post-Op ---
MAC Patient Condition Mental Status/LOC: Same as Preop Cardiovascular: Satisfactory Nausea/Vomiting: Absent Respiratory: Satisfactory Pain: Controlled Complications: Absent Post Op Complications Complications None Follow Up Care/Instructions Patient Instructions None needed. Anesthesiology Discharge Order Discharge Order Patient is doing well, no complaints, stable vital signs, no apparent adverse anesthesia problems. No complications reported per nursing. EVITA GARSIA CRNA Nov 24, 2021 11:42
[2021-11-24] MEDS: APIXABAN 5 MG (ELIQUIS) TABLET PO SCH (14:31)
[2021-11-24] MEDS: PARoxetine 20 MG (PAXIL) TAB PO SCH (14:31)
[2021-11-24] MEDS: lisINopril 10 MG (PRINIVIL) TABLET PO SCH (14:31)
--- NOTE | 2021-11-24 16:25 | Discharge Summary ---
Discharge Summary Hospital Course Problems/Dx: (1) Persistent atrial fibrillation (2) Cardiomyopathy Status: Acute Qualifiers: Qualified Codes: I42.9 - Cardiomyopathy, unspecified (3) Acute on chronic heart failure with preserved ejection fraction (HFpEF) (4) Primary hypertension Status: Chronic (5) Mixed hyperlipidemia Status: Chronic (6) Stage 3 chronic kidney disease Qualifiers: Qualified Codes: N18.32 - Chronic kidney disease, stage 3b (7) Morbid obesity Status: Chronic Hospital Course Date of Admission: Nov 20, 2021 at 20:50 Admission Diagnosis : AFib with RVR Family Physician/Provider: Prisca Eastman Date of Discharge: 11/24/21 Discharge Diagnosis: AFib with RVR Hospital Course: Elsa Kebede is a 71 year old female with multiple comorbidities who was admitted with AFib wt RVR. Cardiology was consulted and assisted with her care. She was treated with Cardizem initially. She was transitioned to Sotalol but returned to RVR. She was subsequently cardioverted successfully. She was continued on Coreg and Eliquis. Her course was complicated by acute on chronic respiratory failure with hypoxia. She normally uses oxygen at night with her CPAP. She was requiring supplemental oxygen throughout her stay. She underwent a home oxygen evaluation and qualified for 2 L continuously and 5 L with activity. She was treated for HFpEF with IV Lasix. She was discharged home in stable condition. She should follow up with her PCP and Senior Policy Associate as scheduled. Labs and Pending Lab Test: Laboratory Tests 11/23/21 20:09: Glucometer 184H 11/24/21 04:14: White Blood Count 6.1, Red Blood Count 4.81, Hemoglobin 14.4, Hematocrit 44, Mean Corpuscular Volume 92, Mean Corpuscular Hemoglobin 30, Mean Corpuscular Hemoglobin Concent 33, Red Cell Distribution Width 13.5, Platelet Count 122L, Mean Platelet Volume 11.7, Immature Granulocyte % (Auto) 0, Neutrophils (%) (Auto) 68, Lymphocytes (%) (Auto) 19, Monocytes (%) (Auto) 8, Eosinophils (%) (Auto) 5, Basophils (%) (Auto) 1, Neutrophils # (Auto) 4.1, Lymphocytes # (Auto) 1.1, Monocytes # (Auto) 0.5, Eosinophils # (Auto) 0.3, Basophils # (Auto) 0.0, Immature Granulocyte # (Auto) 0.0, Percent Immature Platelet Fraction 3.9, Sodium Level 140, Potassium Level 3.9, Chloride Level 102, Carbon Dioxide Level 25, Anion Gap 13, Blood Urea Nitrogen 26H, Creatinine 1.31H, Estimat Glomerular Filtration Rate 40, BUN/Creatinine Ratio 20, Glucose Level 119H, Calcium Level 9.2, Corrected Calcium 9.5, Phosphorus Level 3.7, Magnesium Level 1.8, Total Bilirubin 0.8, Aspartate Amino Transf (AST/SGOT) 14, Alanine Aminotransferase (ALT/SGPT) 13, Alkaline Phosphatase 44, Total Protein 6.5, Albumin 3.6 11/24/21 10:42: Glucometer 151H 11/24/21 15:43: Glucometer 231H Microbiology 11/20/21 MRSA Screen - Final, Complete MRSA not isolated Home Meds Active Reported Ciclopirox 6.6 Ml Solution 1 Appful TOP HS PRN APPLY TO TOE NAILS Tresiba Flextouch U-100 (Insulin Degludec) 100 Unit/1 Ml Insuln.pen 38 Units SC HS Lisinopril 10 Mg Tablet 10 Mg PO DAILY Ozempic (Semaglutide) 1 Mg/0.75 Ml Pen.injctr 1 Mg INJ TUE Vitamin D3 (Cholecalciferol (Vitamin D3)) 50 Mcg Capsule 50 Mcg PO DAILY Fish Oil 1,200 mg Softgel (Fountain-3 Fatty Acids/Fish Oil) 1 Each Capsule 1 Each PO DAILY Magnesium Oxide 250 Mg Tablet 250 Mg PO DAILY Insulin Lispro Kwikpen U-100 (Insulin Lispro) Unknown Strength Insuln.pen Units SC ACHS USES PER SLIDING SCALE Iron (Ferrous Sulfate) 325 Mg Tablet 325 Mg PO DAILY Rosuvastatin Calcium 5 Mg Tablet 5 Mg PO HS Eliquis (Apixaban) 5 Mg Tablet 5 Mg PO BID WITH MEALS Carvedilol 12.5 Mg Tablet 12.5 Mg PO BID WITH MEALS Levothyroxine Sodium 125 Mcg Tablet 125 Mcg PO DAILY Paroxetine HCl 40 Mg Tablet 40 Mg PO HS Assessment/Pt Instructions Take medications as prescribed. You are being set up with home oxygen. Follow up with your PCP and Cardiology as scheduled. Return with worsening shortness of breath, chest pain, or if you feel like you are getting worse. Discharge Planning: <30 minutes discharge planning Discharge Instructions Discharge Diet: ADA Diet Activity as Tolerated: Yes Consultations Cardiology Discharge Physical Examination Vital Signs Vital Signs Date Time Temp Pulse Resp B/P (MAP) Pulse Ox O2 Delivery O2 Flow Rate FiO2 11/24/21 16:00 36.2 11/24/21 14:44 11/24/21 14:00 67 8 96 High Flow N/C 7.00 General Appearance: No Apparent Distress, Obese HEENT: PERRL/EOMI, Pharynx Normal Respiratory: No Respiratory Distress, Decreased Breath Sounds Cardiovascular: Regular Rate, Rhythm, No Murmur Gastrointestinal: Normal Bowel Sounds, Non Tender, Soft Extremity: Normal Inspection, Non Tender, Pedal Edema Skin: Normal Color, Warm/Dry Neurologic/Psychiatric: Alert, Oriented x3, Normal Mood/Affect Allergies: Coded Allergies: latex (Verified Allergy, Intermediate, HIVES, 01/12/20) Penicillins (Verified Allergy, Mild, "I GO TO SLEEP", 01/12/20) Discharge Summary Date of Admission Nov 20, 2021 at 20:50 Date of Discharge Discharge Date: Nov 24, 2021 Discharge Time: 16:18 Admission Diagnosis AFib with RVR Consults/Procedures Consulations Cardiology Procedures Cardioversion Discharge Diagnosis AFib with RVR Acute on chronic respiratory failure with hypoxia HFpEF JOVANI T2DM NICM HTN HLD Hypothyroidism CKD 3b Morbid obesity (1) Persistent atrial fibrillation Assessment & Plan: She remains in atrial fibrillation on sotalol. She is also on carvedilol for rate control. Blood pressures have been reasonable. We will continue apixaban which she was taking for stroke prophylaxis. Her QTc is now prolonged. As such, the sotalol will need to be discontinued. Her atrial sizes are normal which suggest that she has not had prolonged atrial fibrillation. I will plan on a cardioversion this morning and she can probably be discharged home this afternoon. We may need to consider an alternative antiarrhythmic drug but this can be arranged as an outpatient. (2) Cardiomyopathy Status: Acute Assessment & Plan: She had a previous severe cardiomyopathy but her ejection fraction was normal on her echocardiogram from this admission. Continue carvedilol and lisinopril. We may need to adjust the carvedilol since I am starting her on sotalol. Qualifiers: Qualified Codes: I42.9 - Cardiomyopathy, unspecified (3) Acute on chronic heart failure with preserved ejection fraction (HFpEF) Assessment & Plan: She may have some degree of pulmonary congestion on her chest x-ray on admission. She was given 1 dose of intravenous Lasix. 2 days chest x-ray was read out as suspicious for pneumonia. (4) Primary hypertension Status: Chronic Assessment & Plan: Blood pressure is well controlled on carvedilol and lisinopril. We will need watch her blood pressures closely with the addition of sotalol which does have some antihypertensive effect. (5) Mixed hyperlipidemia Status: Chronic Assessment & Plan: Continue statin medication. (6) Stage 3 chronic kidney disease Assessment & Plan: She is on once daily dosing of sotalol due to the depressed renal function. Qualifiers: Qualified Codes: N18.32 - Chronic kidney disease, stage 3b (7) Morbid obesity Status: Chronic Assessment & Plan: She needs to work on weight loss. If she remains this heavy, that will increase the risk of recurrent atrial fibrillation KAILEY CEVALLOS MD Nov 24, 2021 16:17
== END 2021-11-24 16:45 | disposition home or self-care (01) | DRG 308 ==
LOC: EDUNIT# 17:53 → ER 17:55 → ICU 20:50
PROVIDERS: ADMIT Internal Medicine; ATTEND Internal Medicine
PROC: 5A2204Z Restoration of Cardiac Rhythm, Single (ICD-10-PCS; principal; 2021-11-24)
DX: I48.0 Paroxysmal atrial fibrillation (principal); I50.33 Acute on chronic diastolic (congestive) heart failure; J96.01 Acute respiratory failure with hypoxia; I13.0 Hypertensive heart and chronic kidney disease with heart failure and stage 1 through stage 4 chronic kidney disease, or unspecified chronic kidney disease; Z68.41 Body mass index [BMI] 40.0-44.9, adult; I42.8 Other cardiomyopathies; N18.32 Chronic kidney disease, stage 3b; E66.01 Morbid (severe) obesity due to excess calories; E03.9 Hypothyroidism, unspecified; E78.2 Mixed hyperlipidemia; E11.22 Type 2 diabetes mellitus with diabetic chronic kidney disease; J44.9 Chronic obstructive pulmonary disease, unspecified; G47.33 Obstructive sleep apnea (adult) (pediatric); Z79.4 Long term (current) use of insulin; Z20.822 Contact with and (suspected) exposure to COVID-19; I48.19 Other persistent atrial fibrillation; Z79.899 Other long term (current) drug therapy; Z87.891 Personal history of nicotine dependence; I25.10 Atherosclerotic heart disease of native coronary artery without angina pectoris; E78.00 Pure hypercholesterolemia, unspecified; M19.90 Unspecified osteoarthritis, unspecified site; F32.A Depression, unspecified; Z95.810 Presence of automatic (implantable) cardiac defibrillator
CPT/HCPCS: 36415; 71045; 80053; 80061; 82947; 83036; 83735; 83874; 83880; 84100; 84145; 84439; 84443; 84484; 85025; 85610; 85730; 86141; 87081; 87636; 93005; 93041; 93306; 94761

== ENCOUNTER → 2022-08-07 | Outpatient (CLI) | payer BC, MEDICARE ==
[~2022-08-07] VITALS: Ht 154 cm; Wt 105.0 kg
[~2022-08-07] MED LIST changes: +CHOL20003 PO; +CICL6.6S22 TOP; +INSU100I32 SC; +MAGN250T35 PO; +OMEG-109 PO; +REGADENOSON 0.4 MG/5 ML SYR (LEXISCAN) IV ONE; +SEMA1PEN3 INJ
[2022-08-07] MEDS: CATHETER FLUSH 10 ML SYR IVP PRN ×2 (08:40→09:50)
[2022-08-07 09:42] VITALS: BP 163/72
--- NOTE | 2022-08-07 12:10 | Cardiology Stress Test Report ---
Stress Test Report Date of Procedure/Referring: Date of Procedure: Aug 07, 2022 PCP Jimbo Vázquez MD Admitting Physician Admitting Physician: Attending Physician: Fabienne Silva Indications: PAF Baseline Heart Rate: 63 Baseline Blood Pressure: Blood Pressure Systolic: 163 Blood Pressure Diastolic: 72 Baseline Vitals Vital Signs Date Time Temp Pulse Resp B/P (MAP) Pulse Ox O2 Delivery O2 Flow Rate FiO2 08/07/22 09:42 60 16 163/72 (102) 95 Nasal Cannula Baseline EKG: Baseline EKG: atrial paced rhythm Summary After explaining the procedure to the patient, she signed a consent and then brought to the stress nuclear laboratory. Patient received 0.4 mg Lexiscan for stress test, ECG, heart rate and blood pressure were monitored continuously. Resting and stress dose of radio tracer were injected, imaging was acquired and reviewed in short axis, horizontal long axis and vertical long axis views. TID: 1.18 SSS: 8 SDS: 6 EF: 44 1. Patient tolerated Lexiscan well 2. Reversible ischemia involving the mid to apical anterior wall and anterior septum 3. Normal left ventricular size with hypokinesia at the anterior wall, ejection fraction 44% MARY DAVENPORT MD Aug 07, 2022 12:10
== END ==
LOC: CARD 08:08
PROVIDERS: ATTEND Physician Assistant
DX: I48.0 Paroxysmal atrial fibrillation (principal)
CPT/HCPCS: 78452; 93017

== ENCOUNTER → 2022-08-09 | Outpatient (CLI) | payer BC ==
[~2022-08-09] MED LIST changes: -REGADENOSON 0.4 MG/5 ML SYR (LEXISCAN) IV ONE
--- NOTE | 2022-08-09 13:38 | Diagnostic Imaging Report ---
INDICATION: Routine screening. COMPARISON: 03/31/2020 and 02/20/2019. TECHNIQUE: 2D and 3D bilateral screening mammography was performed with CAD. FINDINGS: Scattered fibroglandular densities are identified bilaterally. A small circumscribed density in the inner right breast at posterior depth appears stable to perhaps slightly smaller in size. There are scattered benign calcifications throughout both breasts. No spiculated mass or malignant-appearing microcalcifications are seen. A pacemaker battery pack is in the left axilla. IMPRESSION: No mammographic features suspicious for malignancy are identified. ACR BI-RADS Category 2: Benign findings. Result letter will be mailed to the patient. Note: At least 10% of breast cancer is not imaged by mammography. Dictated by: Dictated on workstation # [id number]
== END ==
LOC: RAD 10:08
PROVIDERS: ATTEND Registered Nurse
DX: Z12.31 Encounter for screening mammogram for malignant neoplasm of breast (principal)
CPT/HCPCS: 77063; 77067

== ENCOUNTER 2022-08-14 09:00 | Day surgery (SDC) | payer BC ==
[2022-08-14] VITALS (9 sets, daily range): BP systolic 113–144; BP diastolic 55–73
[~2022-08-14] VITALS: Ht 154.9 cm; Wt 106.0 kg
--- NOTE | 2022-08-14 08:18 | Diagnostic Imaging Report ---
Indication: Pre-heart catheterization. Time of Exam: 7:56 AM Correlation is made with prior chest from 11/23/2021. Heart is enlarged but stable. Cardiac defibrillator is in place. Lungs are clear. No infiltrates are seen. No effusion or pneumothorax is identified. There are postoperative changes bilateral shoulders. IMPRESSION: No acute cardiopulmonary process is detected. Dictated by: Dictated on workstation # [id number]
[2022-08-14 08:19] LABS: HEMOGLOBIN 15.2 g/dL (11.5-16.0); WHITE BLOOD COUNT 5.6 10^3/uL (4.3-11.0)
[2022-08-14 08:20] LABS: BILIRUBIN,URINE NEGATIVE (NEGATIVE); CLARITY,URINE CLEAR; COLOR,URINE YELLOW; GLUCOSE, URINE (UA) 3+ (NEGATIVE); KETONES,URINE NEGATIVE (NEGATIVE); LEUKOCYTE ESTERASE ,URINE NEGATIVE (NEGATIVE); NITRITE,URINE NEGATIVE (NEGATIVE); PH,URINE 5.5 (5-9); PROTEIN,URINE NEGATIVE (NEGATIVE)
[2022-08-14 08:27] LABS: AMORPHOUS SEDIMENT,UR FEW AMOR URATES /LPF; BACTERIA,URINE MODERATE /HPF; RBC,URINE 0-2 /HPF; WBC,URINE 0-2 /HPF
[2022-08-14 08:29] LABS: POTASSIUM 4.6 MMOL/L (3.6-5.0)
[2022-08-14 08:30] LABS: ALBUMIN 4.1 GM/DL (3.2-4.5)
[2022-08-14 08:31] LABS: CALCIUM 9.1 MG/DL (8.5-10.1)
[2022-08-14 08:32] LABS: TOTAL PROTEIN 6.9 GM/DL (6.4-8.2)
[2022-08-14 08:34] LABS: BILIRUBIN,TOTAL 0.8 MG/DL (0.1-1.0)
[2022-08-14 08:35] LABS: CREATININE SERUM 1.45 MG/DL (0.60-1.30)
--- NOTE | 2022-08-14 08:45 | Cardiac Procedure Note-CS/ASA ---
Pre-Procedure Note Pre-Op Procedure Note Date of Available H&P: Aug 08, 2022 Date H&P Reviewed: Aug 14, 2022 Time H&P Reviewed: 08:44 History & Physical: H&P Reviewed, Patient Examed, No changes noted Pre-Operative Diagnosis: CAD Conscious Sedation Pre-Proced Time 08:44 ASA Score 3 For ASA 3 and 4: Consider anesthesia and medical clearance. Also, for patients with a history of failed moderate sedation consider anesthesia. Airway Lungs Heart ASA score ASA 1: a normal healthy patient ASA 2: a patient with a mild systemic disease (mid diabetes, controlled hypertension, obesity ASA 3: a patient with a severe systemic disease that limits activity (angina, COPD, prior Myocardial infarction) ASA 4: a patient with an incapacitating disease that is a constant threat to life (CHF, renal failure) ASA 5: a moribund patient not expected to survive 24 hrs. (ruptured aneurysm) ASA 6: a declared brain- patient whose organs are being harvested. For emergent operations, add the letter E after the classification Mallampati Classification Grade 3 Sedation Plan Analgesia, Amnesia, Plan communicated to team members, Discussed options with patient/fam, Discussed risks with patient/fam The patient is an appropriate candidate to undergo the planned procedure, sedation, and anesthesia. The patient immediately re-assessed prior to indication. MARY DAVENPORT MD Aug 14, 2022 08:45
[~2022-08-14 09:00] MED LIST changes: +DAPA5TAB PO; +DRON400T6 PO; +HEParin (CATH LAB) 2,000 ML IV ONE; +HEParin 1000 UNIT/ML (10ML VIAL) FOR BOLUS ONE; +INSU100I23 SQ; +LIDOCAINE 1% INJ 20 ML VIAL ONE; +MIDAZOLAM 2 MG/2 ML (VERSED) VIAL ONE; +NITRO DRIP 25000 MCG/D5W 250 ML IV ONE; +NS IV 1000 ML 1,000 ML IV SCH; +NS IV 1000 ML 1,000 ML ONE; +VERAPAMIL 5 MG/2 ML (CALAN) VIAL IV ONE; +fentaNYL INJ 100 MCG/2 ML AMP ONE
--- NOTE | 2022-08-14 09:29 | Discharge Inst-Post CATH ---
Discharge Inst-CATH/EP Problems Reviewed?: Yes Post Cardiac Cath/EP D/C Inst Follow Up/Plan Appointment with Dr. Wyatt's office in 2 to 4 weeks <b>CARDIAC CATH/EP PROCEDURE DISCHARGE INSTRUCTIONS</b> ACTIVITY * Go Home directly and rest. * Limit activity of the leg (or wrist if it was used) for 7 days including aer obics, swimming, jogging, bicycling, etc. * Restrict stair-climbing for 7 days if possible, if not, climb up with your non-cath leg, then bring together on the same step. * Avoid lifting, pushing, pulling or excessive movement of the affected extremi ty for 7 days. * Customary sexual activity may be resumed after 2 days-use caution not to use a position that strains or causes pain to the affected extremity. * No driving for 24 hours. * NO SMOKING. * Avoid straining for bowel movements for 7 days. * Gentle walking on level ground is allowed. * Returning to work will depend on the type of procedure and the results. Your doctor will discuss this with you. CALL YOUR DOCTOR FOR ANY OF THE FOLLOWING: *If bleeding from the puncture site occurs- Apply gentle pressure to site with clean cloth and call your doctor or EMS. * If a knot or lump forms under the skin, increases in size, or causes pain. * If bruising appears to be worsening or moving further down your leg instead of disappearing. * Temperature above 101 F. CARE OF YOUR GROIN INCISION; * Bruising or purple discoloration of the skin near the puncture site is common. * You may shower only, no bathtub bathing for 5 days. Be careful to avoid slipping as your leg may feel stiff. * If a closure device was used on your femoral artery, please see the attached guide regarding care of the device and your leg. * Leave dressing on FOR 24 hours. CARE OF YOUR WRIST INCISION; * Bruising or purple discoloration of the skin near the puncture site is common. * You may shower. * DO NOT submerge wrist. * Leave dressing on FOR 24 hours. MARY WYATT MD Aug 14, 2022 09:29
[2022-08-14] MEDS ORDERED: NS IV 1000 ML 1,000 ML IV SCH (09:30)
--- NOTE | 2022-08-14 09:33 | Cardiac Cath Report ---
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 After explaining the procedure to the patient, all pros and cons were explained, all questions were answered. The patient signed the consent and then she was placed on the cardiac catheterization laboratory. Groin was prepped SL fashion local anesthesia was used. Sheath placed in the right radial artery, [place] catheter was advanced to the left ventricular cavity, pressure was measured, pullback LV to aorta was done, engage the left coronary system and angiogram was done. I was unable to engage fully the right coronary system with the [place] catheter, I exchanged for over a long wire and used Eugen[place] right catheter, engage the right system and angiogram was done. At the end of the procedure the sheath was removed. Vascular band was used FINDINGS: Hemodynamics LV 125/17, end-diastolic pressure of 17 Aorta 123/54 mean of 82 ANATOMY: Left Main is free of obstructive disease Left Anterior Descending has mild nonobstructive disease Left Circumflex is dominant artery with mild nonobstructive disease Right Coronary Artery is small nondominant artery with 60 to 70% stenosis at the mid portion, the artery is too small and that ischemia is anterior wall, I decided to treated medically LV Gram was not done, pressure was measured CONCLUSION: 1. Small nondominant right coronary artery with 60 to 70% stenosis at the midportion, the artery is less than 2 mm in diameter. Medical therapy is recommended 2. Dominant circumflex artery with mild nonobstructive disease in the left system 3. Normal left ventricular end-diastolic pressure DISCUSSION AND RECOMMENDATION: Medical therapy is recommended Anesthesia Type: Conscious Sedation Estimated blood loss (mL): 20 ml Contrast Amount: 36 ml Total Radiation Dose: 438 mGy Post-Procedure Diagnosis Post-operative diagnosis: Chest pain Coronary artery disease Hypertension Hyperlipidemia Diabetes mellitus MARY DAVENPORT MD Aug 14, 2022 09:33
[2022-08-14 10:49] LABS: PROTHROMBIN TIME PATIENT 13.3 SEC (12.2-14.7)
== END 2022-08-14 12:15 | disposition home or self-care (01) ==
LOC: CATH 09:00
PROVIDERS: ATTEND Internal Medicine Cardiovascular Disease
DX: I25.10 Atherosclerotic heart disease of native coronary artery without angina pectoris (principal); E78.5 Hyperlipidemia, unspecified; E11.9 Type 2 diabetes mellitus without complications; Z79.4 Long term (current) use of insulin; E66.9 Obesity, unspecified; Z68.41 Body mass index [BMI] 40.0-44.9, adult; Z87.891 Personal history of nicotine dependence; I48.0 Paroxysmal atrial fibrillation; I11.0 Hypertensive heart disease with heart failure; I50.9 Heart failure, unspecified; I42.9 Cardiomyopathy, unspecified; Z79.01 Long term (current) use of anticoagulants; J44.9 Chronic obstructive pulmonary disease, unspecified; I65.23 Occlusion and stenosis of bilateral carotid arteries; E03.9 Hypothyroidism, unspecified; Z79.899 Other long term (current) drug therapy; Z99.81 Dependence on supplemental oxygen
CPT/HCPCS: 36415; 71045; 80053; 80061; 81000; 85027; 85610; 85730; 87081; 87088; 93005

== ENCOUNTER → 2023-03-22 | Outpatient (CLI) | payer BC ==
[~2023-03-22] MED LIST changes: -HEParin (CATH LAB) 2,000 ML IV ONE; -HEParin 1000 UNIT/ML (10ML VIAL) FOR BOLUS ONE; -INSU100I29 SC; +INSU100I30 SC; -LIDOCAINE 1% INJ 20 ML VIAL ONE; -MIDAZOLAM 2 MG/2 ML (VERSED) VIAL ONE; -NITRO DRIP 25000 MCG/D5W 250 ML IV ONE; -NS IV 1000 ML 1,000 ML IV SCH; -NS IV 1000 ML 1,000 ML ONE; -VERAPAMIL 5 MG/2 ML (CALAN) VIAL IV ONE; -fentaNYL INJ 100 MCG/2 ML AMP ONE
== END ==
LOC: CARD 13:09
PROVIDERS: ATTEND Internal Medicine Cardiovascular Disease
DX: I10 Essential (primary) hypertension (principal)
CPT/HCPCS: 93306

== ENCOUNTER → 2023-09-25 | Outpatient (CLI) | payer BC ==
[~2023-09-25] MED LIST changes: -INSU100I48 SC; +INSU100I64 SC
--- NOTE | 2023-09-25 15:48 | Diagnostic Imaging Report ---
INDICATION: Routine screening. COMPARISON: 08/09/2022 and 03/31/2020. TECHNIQUE: 2D and 3D bilateral screening mammography was performed with CAD. FINDINGS: Scattered fibroglandular densities are identified bilaterally. A benign-appearing nodule in the posterior right breast is stable. Benign-appearing calcifications in both breasts are again noted. No spiculated mass or malignant-appearing microcalcifications are identified. A pacemaker battery pack in the left axilla is again noted. IMPRESSION: No mammographic features suspicious for malignancy are identified. ACR BI-RADS Category 2: Benign findings. Result letter will be mailed to the patient. Note: At least 10% of breast cancer is not imaged by mammography. Dictated by: Dictated on workstation # [id number]
== END ==
LOC: RAD 09:11
PROVIDERS: ATTEND Registered Nurse
DX: Z12.31 Encounter for screening mammogram for malignant neoplasm of breast (principal)
CPT/HCPCS: 77063; 77067